=== PATIENT | male | born 1940 | race Caucasian/White ===

== ENCOUNTER 2017-07-14 09:50 | Emergency (ER) | payer MEDICARE, OTHER, SELFPAY ==
[2017-07-14] VITALS (11 sets, daily range): BP systolic 127–157; BP diastolic 64–95; PULSE 106–120; RESP 20–28; TEMP 36.3–36.7; O2SAT 92–96; BMI 31.1
--- NOTE | 2017-07-14 10:10 | ED.ALLEREA ---
HPI - Allergic Reaction General Chief complaint: Allergic Reaction Stated complaint: HIVES Time Seen by Provider: 07/14/17 10:10 Source: patient and family Mode of arrival: ambulatory Limitations: no limitations History of Present Illness HPI narrative: Patient presents with the chief complaint of worsening widespread hives and erythematous skin with swollen lips and difficulty swallowing. He was prescribed amoxicillin by his dentist on July 08 for a dental abscess and initially developed symptoms soon thereafter. He followed up at the walk-in clinic and was evaluated by their provider in placed on prednisone and Zyrtec. He has had worsening symptoms ever since and has even followed up with his primary care provider on . The rash is very itchy, but he denies pain. He's had no fever or chills. He denies cough or abdominal pain. He's had no dysuria, hematuria or urgency. MD complaint: allergic reaction, hives and facial swelling Onset (ago): day(s) Exposure: medication Known history of allergy to: Significant reaction to Augmentin years ago Symptoms: rash, facial swelling, lip swelling, difficulty swallowing and difficulty breathing Severity: severe Related Data Home Medications Medication Instructions Recorded Confirmed carvedilol [Coreg] 12.5 mg PO BID #0 03/09/11 07/14/17 atorvastatin [Lipitor] 40 mg PO HS #0 04/06/11 07/14/17 cilostazol 100 mg PO BID #0 tab 12/15/15 07/14/17 [id number] serr 1 tab PO QAM 07/14/17 07/14/17 [Glucosamine Daily Complex] multivitamin 1 tab PO DAILY 07/14/17 07/14/17 Previous Rx's Medication Instructions Recorded hydrochlorothiazide 25 mg PO QDAY #60 tab 07/03/16 clotrimazole-betamethasone 1 suly TP TID #45 gm 09/25/16 sertraline 50 mg PO QDAY #90 tab 12/03/16 metformin 1,000 mg PO BIDCC #90 tab 03/11/17 tamsulosin [Flomax] 0.4 mg PO BID #180 tab 04/10/17 prednisone 20 mg tablet 60 mg PO DAILY 5 Days #12 tab 07/12/17 triamcinolone acetonide 0.1 % 1 applictn TOP QID #453.6 gram 07/12/17 topical cream Allergies Allergy/AdvReac Type Severity Reaction Status Date / Time Penicillins Allergy Mild HIVES Verified 07/12/17 13:33 amoxicillin AdvReac Mild Hives Verified 07/12/17 13:33 Review of Systems Review of Systems All systems reviewed & are unremarkable except as noted in HPI and below Constitutional Denies chills, Denies fever(s), Denies lethargy and Denies weakness Eyes Comments: Swollen lids ENT Ears, Nose, Mouth, and Throat: Reports lip swelling and Reports mouth lesions Cardiovascular Denies chest pain, Denies irregular heart rhythm, Denies lightheadedness, Denies palpitations, Reports dyspnea and Denies orthopnea Respiratory Reports dyspnea Gastrointestinal Gastrointestinal: Denies abdominal pain, Denies change in bowel habits, Denies diarrhea, Denies nausea and Denies vomiting Genitourinary Denies hematuria, Denies flank pain, Denies urinary incontinence and Denies urinary urgency Musculoskeletal Denies back pain, Denies muscle weakness, Denies numbness and Denies tingling Integumentary/Breasts Reports rash and Reports skin swelling Comments: widespread (head to toe) erythema with hives Neurologic Denies numbness, Denies tingling and Denies weakness Endocrine Denies palpitations Allergic/Immunologic Reports lip swelling PFSH Surgical History Status post appendectomy Status post coronary artery bypass graft Family History Father Colon cancer Mother Diabetes mellitus Heart disease Hypertension High cholesterol Osteoporosis Social History Smoking Status: Former smoker Exam Narrative Exam Narrative: 77-year-old male is pleasant and in obvious distress with abnormal vital signs Const General: cooperative, acute distress and ill appearing Nutritional Appearance: obese Orientation: alert, awake and oriented x3 HENMT Head: normocephalic and atraumatic Ears: external ears normal and TM's normal bilaterally Nose: external nose normal and No nasal discharge Face and sinus: abnormal facial exam, erythema (Blanching) bilaterally, edema, no sinus tenderness and No dry mucous membranes Mouth: moist mucous membranes, mucous membranes abnormal and oral mucosa abnormal Teeth and gingiva: dentition normal Throat: tonsils normal and uvula midline MDM - Allergic Reaction MDM Narrative Medical decision making narrative: Differential Diagnosis Differential diagnosis: Likely anaphylaxis, allergic reaction and adverse reaction to drug Medical Records Attestation: I reviewed the patient's medical records. Lab Data Attestation: I reviewed the patient's lab results. Result diagrams: 07/14/17 10:15 07/14/17 10:15 Lab Results 07/14/17 07/14/17 07/14/17 Range/Units 10:15 10:15 10:15 WBC 29.0 H (4.5-11.0) X10^3/uL RBC 5.28 (4.5-5.9) X10^6/uL Hgb 18.0 H (13.5-17.5) g/dL Hct 52.5 (41-53) % MCV 99.4 (80-100) fL MCH 34.1 H (26-34) PG MCHC 34.3 (30-36) % RDW 14.2 (11.6-14.8) % Plt Count 312 (150-400) X10^3/uL Neut % (Auto) Not Reportable Lymph % (Auto) Not Reportable [place] % (Auto) Not Reportable Eos % (Auto) Not Reportable Baso % (Auto) Not Reportable Total Counted 100 Seg Neutrophils % 52.0 (38-70) % Band Neutrophils % 37.0 H (3-7) % Lymphocytes % (Manual) 5.0 L (25-45) % Eosinophils % (Manual) 6.0 H (2-4) % Neutrophils # (Manual) 01705 H (4969-3343) /uL RBC Morphology N Sodium 127 L (137-145) mmol/L Potassium 4.3 (3.4-5.1) mmol/L Chloride 93.0 L (98-107) mmol/L Carbon Dioxide 17.0 L (22-32) mmol/L BUN 28.0 H (9-20) mg/dL Creatinine 1.30 H (0.66-1.25) mg/dL Estimated GFR 53.7 L (>60) mL/min BUN/Creatinine Ratio 21.5 (6-22) Glucose 545 H* (80-110) mg/dL Lactate (0.7-2.1) mmol/L Calcium 8.7 (8.4-10.2) mg/dL Total Bilirubin 1.9 H (0.2-1.3) mg/dL AST (17-59) IU/L ALT (21-72) IU/L Procalcitonin 1.04 H (<0.5) ng/mL Urine WBC (0-5/HPF) Ur Squamous Epith Cells Amorphous Sediment Ur Culture Indicated? Micro UA Comment 07/14/17 07/14/17 07/14/17 Range/Units 10:15 10:30 15:05 WBC (4.5-11.0) X10^3/uL RBC (4.5-5.9) X10^6/uL Hgb (13.5-17.5) g/dL Hct (41-53) % MCV (80-100) fL MCH (26-34) PG MCHC (30-36) % RDW (11.6-14.8) % Plt Count (150-400) X10^3/uL Neut % (Auto) Lymph % (Auto) [place] % (Auto) Eos % (Auto) Baso % (Auto) Total Counted Seg Neutrophils % (38-70) % Band Neutrophils % (3-7) % Lymphocytes % (Manual) (25-45) % Eosinophils % (Manual) (2-4) % Neutrophils # (Manual) (0886-2488) /uL RBC Morphology Sodium (137-145) mmol/L Potassium (3.4-5.1) mmol/L Chloride (98-107) mmol/L Carbon Dioxide (22-32) mmol/L BUN (9-20) mg/dL Creatinine (0.66-1.25) mg/dL Estimated GFR (>60) mL/min BUN/Creatinine Ratio (6-22) Glucose (80-110) mg/dL Lactate 3.1 H 3.6 H (0.7-2.1) mmol/L Calcium (8.4-10.2) mg/dL Total Bilirubin (0.2-1.3) mg/dL AST 27 (17-59) IU/L ALT 64 (21-72) IU/L Procalcitonin (<0.5) ng/mL Urine WBC (0-5/HPF) Ur Squamous Epith Cells Amorphous Sediment Ur Culture Indicated? Micro UA Comment 07/14/17 Range/Units 15:50 WBC (4.5-11.0) X10^3/uL RBC (4.5-5.9) X10^6/uL Hgb (13.5-17.5) g/dL Hct (41-53) % MCV (80-100) fL MCH (26-34) PG MCHC (30-36) % RDW (11.6-14.8) % Plt Count (150-400) X10^3/uL Neut % (Auto) Lymph % (Auto) [place] % (Auto) Eos % (Auto) Baso % (Auto) Total Counted Seg Neutrophils % (38-70) % Band Neutrophils % (3-7) % Lymphocytes % (Manual) (25-45) % Eosinophils % (Manual) (2-4) % Neutrophils # (Manual) (9046-7172) /uL RBC Morphology Sodium (137-145) mmol/L Potassium (3.4-5.1) mmol/L Chloride (98-107) mmol/L Carbon Dioxide (22-32) mmol/L BUN (9-20) mg/dL Creatinine (0.66-1.25) mg/dL Estimated GFR (>60) mL/min BUN/Creatinine Ratio (6-22) Glucose (80-110) mg/dL Lactate (0.7-2.1) mmol/L Calcium (8.4-10.2) mg/dL Total Bilirubin (0.2-1.3) mg/dL AST (17-59) IU/L ALT (21-72) IU/L Procalcitonin (<0.5) ng/mL Urine WBC 1-5/hpf (0-5/HPF) Ur Squamous Epith Cells 0-1 /hpf Amorphous Sediment 1+ Ur Culture Indicated? Cult not indicated Micro UA Comment Not Reportable Imaging Data CT scan - chest: Radiologist's impression: Patient: Kris Barbour R#: [id number] : 2Acct:[id number] Age/Sex: 77 / MDate of Service: 07/14/17 Loc: ED Accession Number: [id number] Procedure: CT chest abd pel w con Ordering Provider: Edwardo Coello D.O. PROCEDURE: CT CHEST ABD PEL W CON INDICATIONS: septic appearance, unclear etiology. Tachycardia, hypoxia TECHNIQUE: After the administration of intravenous contrast, 5 mm thick sections acquired from the lung apices to the symphysis. 5 mm coronal and sagittal reformats were performed, with additional 7 mm MIP reformats through the lungs. For radiation dose reduction, the following was used: automated exposure control, adjustment of mA and/or kV according to patient size. COMPARISON: None. FINDINGS: Image quality: Excellent. CHEST: Lungs and pleura: No acute airspace opacities. No pleural effusions or pneumothorax. Central and peripheral airways appear patent and normal in caliber. Mediastinum: Heart size is normal. No pericardial effusion. No mediastinal or hilar adenopathy by size criteria. Thoracic aorta and central pulmonary arteries are normal in size. Scattered atheromatous calcifications are present within the aortic arch. Esophagus is normal in caliber. No hiatal hernia. Chest wall: Patient is status post median sternotomy. No axillary or supraclavicular adenopathy by size criteria. Thyroid gland is unremarkable. ABDOMEN: Solid organs: Liver is diffusely hypodense consistent with hepatic steatosis. Gallbladder is unremarkable. Biliary system is non dilated. Pancreas enhances normally. Spleen is normal in size and enhancement. No adrenal nodules. Kidneys demonstrate normal size and enhancement, without hydronephrosis. Peritoneum and bowel: Bowel loops demonstrate normal wall thickness and caliber. The appendix is not visualized; however there is no discrete right lower quadrant fluid or fat stranding to suggest acute appendicitis. No free fluid or air. Nodes and vessels: No retroperitoneal or mesenteric adenopathy by size criteria. Aorta and inferior vena cava are normal in size. There are scattered atheromatous calcifications throughout the aorta and iliac arteries bilaterally. Miscellaneous: No ventral hernias. PELVIS: Genitourinary: Bladder wall thickness is normal. Miscellaneous: No inguinal adenopathy. There is a small left fat-containing inguinal hernia. Bones: No suspicious bony lesions. No vertebral body compression fractures. IMPRESSION: 1. No acute pulmonary or intra-abdominal findings. 2. The appendix is not visualized; however there are no ancillary findings to suggest acute appendicitis. 3. Hepatic steatosis. Dictated by: Arti Alvarenga M.D. on 07/14/2017 at 15:05 Approved by: Arti Alvarenga M.D. on 07/14/2017 at 15:10 Course Orders Ordered: ED Orders 07/14/17 10:15 Basic Metabolic Panel Stat Bilirubin Total Stat Complete Blood Count AUTO DIFF Stat Procalcitonin Stat 07/14/17 10:30 Blood Culture Stat Lactate (Lactic Acid) Stat 07/14/17 10:34 XR chest 1V Stat 07/14/17 14:14 Alanine Aminotransferase Stat Aspartate Aminotransferase Stat 07/14/17 14:24 CT chest abd pel w con Stat 07/14/17 15:55 Urine Microscopic Stat Sodium Chloride (Normal Saline 0.9%) 1,000 mls @ 1,000 mls/hr IV BOLUS PRN PRN Reason: Fluid replacement Last Infusion: 07/14/17 14:38 Dose: 0 mls/hr Admin: 07/14/17 13:31 Dose: 1,000 mls/hr Lactated Ringer's (Lactated Ringers) 1,000 mls @ 150 mls/hr IV CONT MARY Last Admin: 07/14/17 15:04 Dose: 150 mls/hr Discontinued Medications Diphenhydramine HCl (Benadryl) 50 mg IV NOW ONE Stop: 07/14/17 10:35 Last Admin: 07/14/17 10:40 Dose: 50 mg Famotidine (Pepcid) 20 mg in 50 mls @ 200 mls/hr IV NOW ONE Stop: 07/14/17 10:48 Last Infusion: 07/14/17 11:16 Dose: 0 mls/hr Admin: 07/14/17 10:40 Dose: 200 mls/hr Sodium Chloride (Normal Saline 0.9%) 1,000 mls @ 1,000 mls/hr IV BOLUS ONE Stop: 07/14/17 13:03 Last Infusion: 07/14/17 13:26 Dose: 0 mls/hr Admin: 07/14/17 12:19 Dose: 1,000 mls/hr Insulin Human Regular (Humulin R) 10 unit SUBCUT NOW ONE Stop: 07/14/17 12:05 Last Admin: 07/14/17 12:18 Dose: 10 unit Methylprednisolone (Solu-Medrol 125 Mg Vial) 125 mg IV NOW ONE Stop: 07/14/17 10:35 Last Admin: 07/14/17 10:40 Dose: 125 mg Reevaluation(s) Reevaluation #1: [facility] has just called back, images sent to Derm/Burn. They will call back with both specialists SCORETEN: 4 (Age>40, HR >120, Bicarb < 20mmol/L, Glucose > 14mmol/L ) Time: 12:41 Reevaluation #2: I've just spoken with Dermatology at [facility] whom had already discussed case with Burn. The collective opinion is that, given lack of fever, pain, or more extensive oral mucosal involvement this is likely not SJS or on the continuum. They suggest a medical admission, but that he does not need transfer to Burn unit. More extensive imaging ordered. Call to PCP regarding local admission. 3rd L IVF started, switch to LR Time: 14:35 Reevaluation #3: Dr. Nolan is not comfortable keeping patient at this facility given complexity of presentation and significant lab abnormalities Additional Reevaluation(s): Consultations Consultation #1: call to [facility], Dr. Weber whom is happy to accept Time: 15:42 Last Vital Signs Temp 98.0 F 07/14/17 15:06 Pulse 109 H 07/14/17 16:30 Resp 20 07/14/17 16:30 BP 157/90 H 07/14/17 16:30 Pulse Ox 95 07/14/17 16:30 Critical Care Time Critical Care Time: Yes Total Critical Care Time: 45 Attestation: Critical care time is separate from other billable procedures. This critical care time includes consultation with family and other consulting doctors, review of records, and interpretation of data from labs, EKGs, imaging, etc. Discharge Plan Departure Patient Disposition: [facility] Clinical Impression: Drug-induced hypersensitivity syndrome, Acute kidney injury, Acute hyperglycemia, Lactic acid acidosis, Drug eruption Prescriptions: No Action carvedilol [Coreg] 12.5 MG tablet 12.5 mg PO BID Qty: 0 RF: 0 atorvastatin [Lipitor] 40 MG tablet 40 mg PO HS Qty: 0 RF: 0 cilostazol 100 MG tablet 100 mg PO BID Qty: 0 RF: 0 hydrochlorothiazide 12.5 MG tablet 25 mg PO QDAY Qty: 60 RF: 11 clotrimazole-betamethasone 15 GM cream 1 suly TP TID Qty: 45 RF: 3 sertraline 50 MG tablet 50 mg PO QDAY Qty: 90 RF: 3 metformin 1,000 MG tablet 1,000 mg PO BIDCC Qty: 90 RF: 1 tamsulosin [Flomax] 0.4 MG capsule,extended release 24hr 0.4 mg PO BID Qty: 180 RF: 3 prednisone 20 mg tablet 60 mg PO DAILY 5 Days Qty: 12 RF: 0 triamcinolone acetonide 0.1 % cream 1 applictn TOP QID Qty: 453.6 RF: 0 multivitamin Tablet 1 tab PO DAILY RF: 0 [id number] serr [Glucosamine Daily Complex] 1,500-400-100 mg-unit-mg Tablet 1 tab PO QAM RF: 0
--- NOTE | 2017-07-14 10:34 | DI.RAD.S_ITS ---
PROCEDURE: XR CHEST 1V INDICATIONS: SOB, tachycardia, tachypnea TECHNIQUE: One view of the chest was acquired. COMPARISON: None. FINDINGS: Surgical changes and devices: Patient is status post median sternotomy and CABG. Lungs and pleura: No pleural effusions or pneumothorax. Lungs are clear. Mediastinum: Mediastinal contours appear normal. Heart size is normal. Bones and chest wall: No suspicious bony lesions. Overlying soft tissues appear unremarkable. IMPRESSION: No acute cardiopulmonary findings. Dictated by: Arti Alvarenga M.D. on 07/14/2017 at 11:34 Approved by: Arti Alvarenga M.D. on 07/14/2017 at 11:34
[2017-07-14] MEDS: methylPREDNISolone 125 MG/2 ML VIAL IV (10:40)
[2017-07-14] MEDS: FAMOTIDINE 20 MG/50 ML PIGGYBACK 200 MG IV (10:40)
[2017-07-14] MEDS: diphenhydrAMINE 50 MG/ML VIAL IV (10:40)
[2017-07-14 10:50] LABS: Hematocrit 52.5 % (41-53); Mean Corpuscular HGB Conc 34.3 % (30-36); Mean Corpuscular Hemoglobin 34.1 PG (26-34); Mean Corpuscular Volume 99.4 fL (80-100); Platelet Count 312 X10^3/uL (150-400); Red Blood Cell Count 5.28 X10^6/uL (4.5-5.9); Red Cell Distribution Width 14.2 % (11.6-14.8)
[2017-07-14 10:52] LABS: Add Manual Diff / Slide Review YES
[2017-07-14 10:53] LABS: BUN Creatinine Ratio 21.5 (6-22); Bilirubin Total 1.9 mg/dL (0.2-1.3); Calcium 8.7 mg/dL (8.4-10.2); Estimated Glomerular Filt Rate 53.7 mL/min (>60); HEMOLYSIS 16 (0-50); Potassium 4.3 mmol/L (3.4-5.1); Sodium 127 mmol/L (137-145)
[2017-07-14 10:56] LABS: Lactate (Lactic Acid) 3.1 mmol/L (0.7-2.1)
[2017-07-14 11:00] LABS: Glucose 545 mg/dL (80-110)
[2017-07-14 11:14] LABS: Neutrophils Absolute Manual 25810 /uL (3000-5900); Total Cells Counted 100
[2017-07-14 11:15] LABS: RBC Morphology N
[2017-07-14 11:29] LABS: Procalcitonin 1.04 ng/mL (<0.5)
[2017-07-14] MEDS: INSULIN REGULAR 100 UNIT/ML 3 ML VIAL 10 UNIT SUBCUT (12:18)
[2017-07-14] MEDS: SODIUM CHLORIDE 0.9% 1,000 ML 1000 ML IV ×2 (12:19→13:31)
--- NOTE | 2017-07-14 14:24 | DI.CT.S_ITS ---
PROCEDURE: CT CHEST ABD PEL W CON INDICATIONS: septic appearance, unclear etiology. Tachycardia, hypoxia TECHNIQUE: After the administration of intravenous contrast, 5 mm thick sections acquired from the lung apices to the symphysis. 5 mm coronal and sagittal reformats were performed, with additional 7 mm MIP reformats through the lungs. For radiation dose reduction, the following was used: automated exposure control, adjustment of mA and/or kV according to patient size. COMPARISON: None. FINDINGS: Image quality: Excellent. CHEST: Lungs and pleura: No acute airspace opacities. No pleural effusions or pneumothorax. Central and peripheral airways appear patent and normal in caliber. Mediastinum: Heart size is normal. No pericardial effusion. No mediastinal or hilar adenopathy by size criteria. Thoracic aorta and central pulmonary arteries are normal in size. Scattered atheromatous calcifications are present within the aortic arch. Esophagus is normal in caliber. No hiatal hernia. Chest wall: Patient is status post median sternotomy. No axillary or supraclavicular adenopathy by size criteria. Thyroid gland is unremarkable. ABDOMEN: Solid organs: Liver is diffusely hypodense consistent with hepatic steatosis. Gallbladder is unremarkable. Biliary system is non dilated. Pancreas enhances normally. Spleen is normal in size and enhancement. No adrenal nodules. Kidneys demonstrate normal size and enhancement, without hydronephrosis. Peritoneum and bowel: Bowel loops demonstrate normal wall thickness and caliber. The appendix is not visualized; however there is no discrete right lower quadrant fluid or fat stranding to suggest acute appendicitis. No free fluid or air. Nodes and vessels: No retroperitoneal or mesenteric adenopathy by size criteria. Aorta and inferior vena cava are normal in size. There are scattered atheromatous calcifications throughout the aorta and iliac arteries bilaterally. Miscellaneous: No ventral hernias. PELVIS: Genitourinary: Bladder wall thickness is normal. Miscellaneous: No inguinal adenopathy. There is a small left fat-containing inguinal hernia. Bones: No suspicious bony lesions. No vertebral body compression fractures. IMPRESSION: 1. No acute pulmonary or intra-abdominal findings. 2. The appendix is not visualized; however there are no ancillary findings to suggest acute appendicitis. 3. Hepatic steatosis. Dictated by: Arti Alvarenga M.D. on 07/14/2017 at 15:05 Approved by: Arti Alvarenga M.D. on 07/14/2017 at 15:10
--- NOTE | 2017-07-14 14:35 | ED_ITS ---
HPI - Allergic Reaction General Chief complaint: Allergic Reaction Stated complaint: HIVES Time Seen by Provider: 07/14/17 10:10 Source: patient and family Mode of arrival: ambulatory Limitations: no limitations History of Present Illness HPI narrative: Patient presents with the chief complaint of worsening widespread hives and erythematous skin with swollen lips and difficulty swallowing. He was prescribed amoxicillin by his dentist on July 08 for a dental abscess and initially developed symptoms soon thereafter. He followed up at the walk-in clinic and was evaluated by their provider in placed on prednisone and Zyrtec. He has had worsening symptoms ever since and has even followed up with his primary care provider on . The rash is very itchy, but he denies pain. He's had no fever or chills. He denies cough or abdominal pain. He's had no dysuria, hematuria or urgency. MD complaint: allergic reaction, hives and facial swelling Onset (ago): day(s) Exposure: medication Known history of allergy to: Significant reaction to Augmentin years ago Symptoms: rash, facial swelling, lip swelling, difficulty swallowing and difficulty breathing Severity: severe Related Data Home Medications Medication Instructions Recorded Confirmed carvedilol [Coreg] 12.5 mg PO BID #0 03/09/11 07/14/17 atorvastatin [Lipitor] 40 mg PO HS #0 04/06/11 07/14/17 cilostazol 100 mg PO BID #0 tab 12/15/15 07/14/17 [id number] serr 1 tab PO QAM 07/14/17 07/14/17 [Glucosamine Daily Complex] multivitamin 1 tab PO DAILY 07/14/17 07/14/17 Previous Rx's Medication Instructions Recorded hydrochlorothiazide 25 mg PO QDAY #60 tab 07/03/16 clotrimazole-betamethasone 1 suly TP TID #45 gm 09/25/16 sertraline 50 mg PO QDAY #90 tab 12/03/16 metformin 1,000 mg PO BIDCC #90 tab 03/11/17 tamsulosin [Flomax] 0.4 mg PO BID #180 tab 04/10/17 prednisone 20 mg tablet 60 mg PO DAILY 5 Days #12 tab 07/12/17 triamcinolone acetonide 0.1 % 1 applictn TOP QID #453.6 gram 07/12/17 topical cream Allergies Allergy/AdvReac Type Severity Reaction Status Date / Time Penicillins Allergy Mild HIVES Verified 07/12/17 13:33 amoxicillin AdvReac Mild Hives Verified 07/12/17 13:33 Review of Systems Review of Systems All systems reviewed & are unremarkable except as noted in HPI and below Constitutional Denies chills, Denies fever(s), Denies lethargy and Denies weakness Eyes Comments: Swollen lids ENT Ears, Nose, Mouth, and Throat: Reports lip swelling and Reports mouth lesions Cardiovascular Denies chest pain, Denies irregular heart rhythm, Denies lightheadedness, Denies palpitations, Reports dyspnea and Denies orthopnea Respiratory Reports dyspnea Gastrointestinal Gastrointestinal: Denies abdominal pain, Denies change in bowel habits, Denies diarrhea, Denies nausea and Denies vomiting Genitourinary Denies hematuria, Denies flank pain, Denies urinary incontinence and Denies urinary urgency Musculoskeletal Denies back pain, Denies muscle weakness, Denies numbness and Denies tingling Integumentary/Breasts Reports rash and Reports skin swelling Comments: widespread (head to toe) erythema with hives Neurologic Denies numbness, Denies tingling and Denies weakness Endocrine Denies palpitations Allergic/Immunologic Reports lip swelling PFSH Surgical History Status post appendectomy Status post coronary artery bypass graft Family History Father Colon cancer Mother Diabetes mellitus Heart disease Hypertension High cholesterol Osteoporosis Social History Smoking Status: Former smoker Exam Narrative Exam Narrative: 77-year-old male is pleasant and in obvious distress with abnormal vital signs Const General: cooperative, acute distress and ill appearing Nutritional Appearance: obese Orientation: alert, awake and oriented x3 HENMT Head: normocephalic and atraumatic Ears: external ears normal and TM's normal bilaterally Nose: external nose normal and No nasal discharge Face and sinus: abnormal facial exam, erythema (Blanching) bilaterally, edema, no sinus tenderness and No dry mucous membranes Mouth: moist mucous membranes, mucous membranes abnormal and oral mucosa abnormal Teeth and gingiva: dentition normal Throat: tonsils normal and uvula midline MDM - Allergic Reaction MDM Narrative Medical decision making narrative: Differential Diagnosis Differential diagnosis: Likely anaphylaxis, allergic reaction and adverse reaction to drug Medical Records Attestation: I reviewed the patient's medical records. Lab Data Attestation: I reviewed the patient's lab results. Result diagrams: 07/14/17 10:15 07/14/17 10:15 Lab Results 07/14/17 07/14/17 07/14/17 Range/Units 10:15 10:15 10:15 WBC 29.0 H (4.5-11.0) X10^3/uL RBC 5.28 (4.5-5.9) X10^6/uL Hgb 18.0 H (13.5-17.5) g/dL Hct 52.5 (41-53) % MCV 99.4 (80-100) fL MCH 34.1 H (26-34) PG MCHC 34.3 (30-36) % RDW 14.2 (11.6-14.8) % Plt Count 312 (150-400) X10^3/uL Neut % (Auto) Not Reportable Lymph % (Auto) Not Reportable [place] % (Auto) Not Reportable Eos % (Auto) Not Reportable Baso % (Auto) Not Reportable Total Counted 100 Seg Neutrophils % 52.0 (38-70) % Band Neutrophils % 37.0 H (3-7) % Lymphocytes % (Manual) 5.0 L (25-45) % Eosinophils % (Manual) 6.0 H (2-4) % Neutrophils # (Manual) 88129 H (6041-1305) /uL RBC Morphology N Sodium 127 L (137-145) mmol/L Potassium 4.3 (3.4-5.1) mmol/L Chloride 93.0 L (98-107) mmol/L Carbon Dioxide 17.0 L (22-32) mmol/L BUN 28.0 H (9-20) mg/dL Creatinine 1.30 H (0.66-1.25) mg/dL Estimated GFR 53.7 L (>60) mL/min BUN/Creatinine Ratio 21.5 (6-22) Glucose 545 H* (80-110) mg/dL Lactate (0.7-2.1) mmol/L Calcium 8.7 (8.4-10.2) mg/dL Total Bilirubin 1.9 H (0.2-1.3) mg/dL AST (17-59) IU/L ALT (21-72) IU/L Procalcitonin 1.04 H (<0.5) ng/mL Urine WBC (0-5/HPF) Ur Squamous Epith Cells Amorphous Sediment Ur Culture Indicated? Micro UA Comment 07/14/17 07/14/17 07/14/17 Range/Units 10:15 10:30 15:05 WBC (4.5-11.0) X10^3/uL RBC (4.5-5.9) X10^6/uL Hgb (13.5-17.5) g/dL Hct (41-53) % MCV (80-100) fL MCH (26-34) PG MCHC (30-36) % RDW (11.6-14.8) % Plt Count (150-400) X10^3/uL Neut % (Auto) Lymph % (Auto) [place] % (Auto) Eos % (Auto) Baso % (Auto) Total Counted Seg Neutrophils % (38-70) % Band Neutrophils % (3-7) % Lymphocytes % (Manual) (25-45) % Eosinophils % (Manual) (2-4) % Neutrophils # (Manual) (3050-8761) /uL RBC Morphology Sodium (137-145) mmol/L Potassium (3.4-5.1) mmol/L Chloride (98-107) mmol/L Carbon Dioxide (22-32) mmol/L BUN (9-20) mg/dL Creatinine (0.66-1.25) mg/dL Estimated GFR (>60) mL/min BUN/Creatinine Ratio (6-22) Glucose (80-110) mg/dL Lactate 3.1 H 3.6 H (0.7-2.1) mmol/L Calcium (8.4-10.2) mg/dL Total Bilirubin (0.2-1.3) mg/dL AST 27 (17-59) IU/L ALT 64 (21-72) IU/L Procalcitonin (<0.5) ng/mL Urine WBC (0-5/HPF) Ur Squamous Epith Cells Amorphous Sediment Ur Culture Indicated? Micro UA Comment 07/14/17 Range/Units 15:50 WBC (4.5-11.0) X10^3/uL RBC (4.5-5.9) X10^6/uL Hgb (13.5-17.5) g/dL Hct (41-53) % MCV (80-100) fL MCH (26-34) PG MCHC (30-36) % RDW (11.6-14.8) % Plt Count (150-400) X10^3/uL Neut % (Auto) Lymph % (Auto) [place] % (Auto) Eos % (Auto) Baso % (Auto) Total Counted Seg Neutrophils % (38-70) % Band Neutrophils % (3-7) % Lymphocytes % (Manual) (25-45) % Eosinophils % (Manual) (2-4) % Neutrophils # (Manual) (4177-1362) /uL RBC Morphology Sodium (137-145) mmol/L Potassium (3.4-5.1) mmol/L Chloride (98-107) mmol/L Carbon Dioxide (22-32) mmol/L BUN (9-20) mg/dL Creatinine (0.66-1.25) mg/dL Estimated GFR (>60) mL/min BUN/Creatinine Ratio (6-22) Glucose (80-110) mg/dL Lactate (0.7-2.1) mmol/L Calcium (8.4-10.2) mg/dL Total Bilirubin (0.2-1.3) mg/dL AST (17-59) IU/L ALT (21-72) IU/L Procalcitonin (<0.5) ng/mL Urine WBC 1-5/hpf (0-5/HPF) Ur Squamous Epith Cells 0-1 /hpf Amorphous Sediment 1+ Ur Culture Indicated? Cult not indicated Micro UA Comment Not Reportable Imaging Data CT scan - chest: Radiologist's impression: Patient: Kris Barbour R#: [id number] : 2Acct:[id number] Age/Sex: 77 / MDate of Service: 07/14/17 Loc: ED Accession Number: [id number] Procedure: CT chest abd pel w con Ordering Provider: Edwardo Coello D.O. PROCEDURE: CT CHEST ABD PEL W CON INDICATIONS: septic appearance, unclear etiology. Tachycardia, hypoxia TECHNIQUE: After the administration of intravenous contrast, 5 mm thick sections acquired from the lung apices to the symphysis. 5 mm coronal and sagittal reformats were performed, with additional 7 mm MIP reformats through the lungs. For radiation dose reduction, the following was used: automated exposure control, adjustment of mA and/or kV according to patient size. COMPARISON: None. FINDINGS: Image quality: Excellent. CHEST: Lungs and pleura: No acute airspace opacities. No pleural effusions or pneumothorax. Central and peripheral airways appear patent and normal in caliber. Mediastinum: Heart size is normal. No pericardial effusion. No mediastinal or hilar adenopathy by size criteria. Thoracic aorta and central pulmonary arteries are normal in size. Scattered atheromatous calcifications are present within the aortic arch. Esophagus is normal in caliber. No hiatal hernia. Chest wall: Patient is status post median sternotomy. No axillary or supraclavicular adenopathy by size criteria. Thyroid gland is unremarkable. ABDOMEN: Solid organs: Liver is diffusely hypodense consistent with hepatic steatosis. Gallbladder is unremarkable. Biliary system is non dilated. Pancreas enhances normally. Spleen is normal in size and enhancement. No adrenal nodules. Kidneys demonstrate normal size and enhancement, without hydronephrosis. Peritoneum and bowel: Bowel loops demonstrate normal wall thickness and caliber. The appendix is not visualized; however there is no discrete right lower quadrant fluid or fat stranding to suggest acute appendicitis. No free fluid or air. Nodes and vessels: No retroperitoneal or mesenteric adenopathy by size criteria. Aorta and inferior vena cava are normal in size. There are scattered atheromatous calcifications throughout the aorta and iliac arteries bilaterally. Miscellaneous: No ventral hernias. PELVIS: Genitourinary: Bladder wall thickness is normal. Miscellaneous: No inguinal adenopathy. There is a small left fat-containing inguinal hernia. Bones: No suspicious bony lesions. No vertebral body compression fractures. IMPRESSION: 1. No acute pulmonary or intra-abdominal findings. 2. The appendix is not visualized; however there are no ancillary findings to suggest acute appendicitis. 3. Hepatic steatosis. Dictated by: Arti Alvarenga M.D. on 07/14/2017 at 15:05 Approved by: Arti Alvarenga M.D. on 07/14/2017 at 15:10 Course Orders Ordered: ED Orders 07/14/17 10:15 Basic Metabolic Panel Stat Bilirubin Total Stat Complete Blood Count AUTO DIFF Stat Procalcitonin Stat 07/14/17 10:30 Blood Culture Stat Lactate (Lactic Acid) Stat 07/14/17 10:34 XR chest 1V Stat 07/14/17 14:14 Alanine Aminotransferase Stat Aspartate Aminotransferase Stat 07/14/17 14:24 CT chest abd pel w con Stat 07/14/17 15:55 Urine Microscopic Stat Sodium Chloride (Normal Saline 0.9%) 1,000 mls @ 1,000 mls/hr IV BOLUS PRN PRN Reason: Fluid replacement Last Infusion: 07/14/17 14:38 Dose: 0 mls/hr Admin: 07/14/17 13:31 Dose: 1,000 mls/hr Lactated Ringer's (Lactated Ringers) 1,000 mls @ 150 mls/hr IV CONT MARY Last Admin: 07/14/17 15:04 Dose: 150 mls/hr Discontinued Medications Diphenhydramine HCl (Benadryl) 50 mg IV NOW ONE Stop: 07/14/17 10:35 Last Admin: 07/14/17 10:40 Dose: 50 mg Famotidine (Pepcid) 20 mg in 50 mls @ 200 mls/hr IV NOW ONE Stop: 07/14/17 10:48 Last Infusion: 07/14/17 11:16 Dose: 0 mls/hr Admin: 07/14/17 10:40 Dose: 200 mls/hr Sodium Chloride (Normal Saline 0.9%) 1,000 mls @ 1,000 mls/hr IV BOLUS ONE Stop: 07/14/17 13:03 Last Infusion: 07/14/17 13:26 Dose: 0 mls/hr Admin: 07/14/17 12:19 Dose: 1,000 mls/hr Insulin Human Regular (Humulin R) 10 unit SUBCUT NOW ONE Stop: 07/14/17 12:05 Last Admin: 07/14/17 12:18 Dose: 10 unit Methylprednisolone (Solu-Medrol 125 Mg Vial) 125 mg IV NOW ONE Stop: 07/14/17 10:35 Last Admin: 07/14/17 10:40 Dose: 125 mg Reevaluation(s) Reevaluation #1: [facility] [place] [facility] has just called back, images sent to Derm/ Burn. They will call back with both specialists SCORETEN: 4 (Age>40, HR >120, Bicarb < 20mmol/L, Glucose > 14mmol/L ) Time: 12:41 Reevaluation #2: I've just spoken with Dermatology at [facility] [place] [facility] whom had already discussed case with Burn. The collective opinion is that, given lack of fever, pain, or more extensive oral mucosal involvement this is likely not SJS or on the continuum. They suggest a medical admission, but that he does not need transfer to Burn unit. More extensive imaging ordered. Call to PCP regarding local admission. 3rd L IVF started, switch to LR Time: 14:35 Reevaluation #3: Dr. Nolan is not comfortable keeping patient at this facility given complexity of presentation and significant lab abnormalities Additional Reevaluation(s): Consultations Consultation #1: call to [facility]ist, Dr. Weber whom is happy to accept Time: 15:42 Last Vital Signs Temp 98.0 F 07/14/17 15:06 Pulse 109 H 07/14/17 16:30 Resp 20 07/14/17 16:30 BP 157/90 H 07/14/17 16:30 Pulse Ox 95 07/14/17 16:30 Critical Care Time Critical Care Time: Yes Total Critical Care Time: 45 Attestation: Critical care time is separate from other billable procedures. This critical care time includes consultation with family and other consulting doctors, review of records, and interpretation of data from labs, EKGs, imaging, etc. Discharge Plan Departure Patient Disposition: [facility] Clinical Impression: Drug-induced hypersensitivity syndrome, Acute kidney injury, Acute hyperglycemia, Lactic acid acidosis, Drug eruption Prescriptions: No Action carvedilol [Coreg] 12.5 MG tablet 12.5 mg PO BID Qty: 0 RF: 0 atorvastatin [Lipitor] 40 MG tablet 40 mg PO HS Qty: 0 RF: 0 cilostazol 100 MG tablet 100 mg PO BID Qty: 0 RF: 0 hydrochlorothiazide 12.5 MG tablet 25 mg PO QDAY Qty: 60 RF: 11 clotrimazole-betamethasone 15 GM cream 1 suly TP TID Qty: 45 RF: 3 sertraline 50 MG tablet 50 mg PO QDAY Qty: 90 RF: 3 metformin 1,000 MG tablet 1,000 mg PO BIDCC Qty: 90 RF: 1 tamsulosin [Flomax] 0.4 MG capsule,extended release 24hr 0.4 mg PO BID Qty: 180 RF: 3 prednisone 20 mg tablet 60 mg PO DAILY 5 Days Qty: 12 RF: 0 triamcinolone acetonide 0.1 % cream 1 applictn TOP QID Qty: 453.6 RF: 0 multivitamin Tablet 1 tab PO DAILY RF: 0 [id number] serr [Glucosamine Daily Complex] 1,500-400-100 mg- unit-mg Tablet 1 tab PO QAM RF: 0
[2017-07-14 14:39] LABS: Alanine Aminotransferase 64 IU/L (21-72); Aspartate Aminotransferase 27 IU/L (17-59)
[2017-07-14 14:44] LABS: Reflexed Lactate in 2 Hours Y
[2017-07-14] MEDS: LACTATED RINGERS 1,000 ML 150 ML IV (15:04)
[2017-07-14 15:21] LABS: Lactate 2HR (Lactic Acid Rflx) 3.6 mmol/L (0.7-2.1)
--- NOTE | 2017-07-14 15:36 | PC.NURSE ---
facial swelling, right eye swelling and neck swelling slightly improved. face is not as beefy red. soft palate with swelling unchanged.
[2017-07-14 16:14] LABS: Amorphous Sediment Urine 1+; Squamous Epithelial Cell Urine 0-1 /HPF; WBC Urine 1-5/HPF (0-5/HPF)
[2017-07-14 16:15] LABS: Culture Indicated Urine Cult Not Indicated
== END 2017-07-14 17:26 | disposition short-term general hospital (02) ==
PROVIDERS: Emergency Provider Emergency Medicine; Family Provider Internal Medicine; PCP Internal Medicine
DX: T78.40XA Allergy, unspecified, initial encounter (principal); T50.905A Adverse effect of unspecified drugs, medicaments and biological substances, initial encounter; N17.9 Acute kidney failure, unspecified; R73.9 Hyperglycemia, unspecified; E87.2 Acidosis; L27.0 Generalized skin eruption due to drugs and medicaments taken internally
CPT/HCPCS: 36415; 36591; 71045; 71260; 74177; 80048; 81003; 81015; 82247; 82962; 83605; 84145; 84450; 84460; 85025; 87040; 96372; 96374; 96375; 99285; 99291; J1200; J2930; Q9967

== ENCOUNTER → 2017-07-22 16:44 | Outpatient (CLI) | payer MEDICARE, OTHER, SELFPAY ==
[2017-07-22 17:39] LABS: Add Manual Diff / Slide Review NO; Basophils Percent Auto 0.9 % (0-2); Eosinophils Percent Auto 8.6 % (2-4); Hematocrit 50.3 % (41-53); Hemoglobin 17.6 g/dL (13.5-17.5); Lymphocytes Percent Auto 21.3 % (25-40); Mean Corpuscular HGB Conc 34.9 % (30-36); Mean Corpuscular Hemoglobin 33.7 PG (26-34); Mean Corpuscular Volume 96.5 fL (80-100); Monocytes Percent Auto 4.9 % (3-14); Neutrophils Absolute Auto 9200 /uL (3000-5900); Neutrophils Percent Auto 64.3 % (50-75); Platelet Count 288 X10^3/uL (150-400); Red Blood Cell Count 5.22 X10^6/uL (4.5-5.9); Red Cell Distribution Width 13.9 % (11.6-14.8); White Blood Cell Count 14.3 X10^3/uL (4.5-11.0)
[2017-07-22 19:09] LABS: Alanine Aminotransferase 63 IU/L (21-72); Albumin 4.4 g/dL (3.5-5.0); Albumin Globulin Ratio 1.5 (1.0-2.8); Alkaline Phosphatase 166 U/L (38-126); Aspartate Aminotransferase 26 IU/L (17-59); BUN Creatinine Ratio 24.5 (6-22); Bilirubin Total 1.5 mg/dL (0.2-1.3); Estimated Glomerular Filt Rate > 60.0 mL/min (>60); Globulin 2.9 g/dL (1.7-4.1); Glucose 409 mg/dL (80-110); HEMOLYSIS < 15 (0-50); Potassium 3.9 mmol/L (3.4-5.1); Sodium 132 mmol/L (137-145); Total Protein 7.3 g/dL (6.3-8.2)
== END ==
PROVIDERS: Family Provider Internal Medicine; PCP Internal Medicine; Visit Provider Internal Medicine
DX: T78.40XA Allergy, unspecified, initial encounter (principal); T50.905A Adverse effect of unspecified drugs, medicaments and biological substances, initial encounter
CPT/HCPCS: 36415; 80053; 85025

== ENCOUNTER → 2017-07-25 16:21 | Outpatient (CLI) | payer MEDICARE, OTHER, SELFPAY ==
[2017-07-25 16:35] LABS: Bacteria Urine None Seen; RBC Urine None Seen (0-5/HPF); WBC Urine None Seen (0-5/HPF)
[2017-07-25 17:30] LABS: Appearance Urine UA CLEAR; Bilirubin Urine UA NEGATIVE (NEGATIVE); Color Urine UA YELLOW; Glucose Urine UA 2+ g/dL (Negative); Ketones Urine UA NEGATIVE (NEGATIVE); Leukocyte Esterase Urine UA NEGATIVE (NEGATIVE); Nitrite Urine UA Negative (Negative); Occult Blood Urine UA TRACE-LYSED (Negative); Protein Urine UA TRACE (Negative); Urobilinogen Urine UA 0.2 E.U./dL (0.2)
[2017-07-25 17:34] LABS: Uric Acid Crystals Urine Occasional
[2017-07-25 17:35] LABS: Culture Indicated Urine Cult Not Indicated
== END ==
PROVIDERS: PCP Internal Medicine; Visit Provider Urology
DX: N39.41 Urge incontinence (principal); R35.0 Frequency of micturition
CPT/HCPCS: 81001

== ENCOUNTER 2017-09-11 07:49 | Day surgery (SDC) | payer MEDICARE, OTHER, SELFPAY ==
--- NOTE | 2017-09-06 17:11 | PM.PREOP ---
Pre-operative Note Interval Note Pre-op Check: History & Physical Reviewed by Physician
[2017-09-11] MEDS: PROPARACAINE 0.5% OPHTH SOL 2 DROPS EYE-LEFT (08:20)
[2017-09-11 08:25] VITALS: BMI 30.4
[2017-09-11] MEDS: CYCLOPENTOLATE 1% OPHTH 2.5 DROPS, PHENYLEPHRINE 2.5% OPHTH 2.5 DROPS, TROPICAMIDE 1% O... EYE-OP (08:30)
[2017-09-11 08:34] VITALS: BP 124/67; PULSE 68; RESP 16; TEMP 36.6; O2SAT 93
--- NOTE | 2017-09-11 08:58 | PM.PREOP ---
Pre-operative Note Interval Note Pre-op Check: History & Physical Reviewed by Physician
--- NOTE | 2017-09-11 09:07 | SUR.PREOP ---
Reports taking no meds today.
[2017-09-11] MEDS: BALANCED SALT IRRIG SOLN NO.2 15 ML IRRIG.SOLN IRR (09:27)
[2017-09-11] MEDS: LIDOCAINE 1% W/EPI INJ 20 ML INJ (09:28)
[2017-09-11] MEDS: HYALURONATE SODIUM 10 MG/ML SYRINGE INJ (09:28)
[2017-09-11] MEDS: CARBACHOL 1.5 ML VIAL INJ (09:28)
[2017-09-11] MEDS: CHONDROIDTIN/SOD HYALURONATE 1.05 ML SYRINGE INTRAOCULA (09:28)
[2017-09-11] MEDS: MOXIFLOXACIN OPHTH DROPS 3 ML BOTTLE 2 DROPS INJ (09:29)
[2017-09-11] MEDS: NEOMYCIN/POLY/DEX OPHTH OINT 1 APPLIC EYE-LEFT (09:29)
[2017-09-11] MEDS: PHENYLEPHRINE/LIDOCAINE 3ML VIAL (OR) EYE-OP (09:30)
[2017-09-11] MEDS: OFLOXACIN 0.3% OPHTH 5 ML 2 DROPS EYE-LEFT (09:30)
[2017-09-11] MEDS: TRYPAN BLUE 0.5 ML SYRINGE INJ (09:31)
[2017-09-11] MEDS: TRIAMCINOLONE 50 MG/5 ML VIAL INJ (09:31)
[2017-09-11] MEDS: BALANCED SALT IRRIG SOLN NO.2 500 ML, EPINEPHrine 1 MG IRR (09:31)
[2017-09-11] MEDS: LIDOCAINE 2% 4 ML, BUPIVACAINE 0.5% (PF) 4 ML, HYALURONIDASE 150 UNIT INJ (09:32)
[2017-09-11 10:13] VITALS: BP 129/76; PULSE 68; RESP 16; TEMP 36.2; O2SAT 96
--- NOTE | 2017-09-11 20:18 | PM.PROC.1 ---
Procedures Date/Time Date of procedure: 09/11/17 Time of procedure: 09:18 General Procedure description: Date of service: September 12, 2007 Preoperative diagnoses: 1. Advanced immature nuclear sclerotic cataract with need for capsular dye. 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 3. Recent severe reaction to penicillin including including toxic dermatolysis, now stable. 4.Diabetes Postoperative diagnoses: 1. Cataract removal by phacoemulsification with use of capsular dye and Malyugin ring. Posterior chamber intraocular lens implant. Procedure: Phacoemulsification with posterior chamber intraocular lens implant Surgeon: Tamia Rodrigues MD Complications: None Specimen: None Implant: ZCBOO +19.5 Blood loss: None Anesthesia: Retrobulbar with monitored standby Anesthesiologist: Harper Horvath M.D. Description of procedure: Patient is a 77 year old male with decreased vision due to cataract which is affecting activities of daily living. He wants surgery to improve vision. Pre-operative glucose 184. He has taken to the operating room and given IV sedation. A retrobulbar block insert consisting of 6 cc of 2% xylocaine without epinephrine mixed half and half with 0.5% Marcaine with 1 cc of hyaluronidase added is placed between the medial and lateral 1/3 of the inferior orbital rim. Lid akinesia is obtain with 1% xylocaine with epinephrine infiltrated along the lid margin. The eye is manually massaged for 30 sec, prepped using Betadine solution, and draped in the usual sterile fashion. Temporal approach was made, a 1 mm side-port incision was made at the 12 oclock meridian. Phenylephrine 1.5% mixed with 1% xylocaine 0.2 cc was placed into the anterior chamber. An air bubble is placed followed by Visudyne dye.Viscoat followed by Healon was then placed. A 2.6 mm clear incision with a 2.6 mm blade was placed at the 3 oclock meridian. A Malyguin ring of 7.0 millimeters was inspected and placed in the anterior chamber. The iris was sequentially hooked forming an adequate pupil. A 360 degree capsulorrhexis style capsulotomy was then performed with a cystitome needle on a Healon. Hydrodelineation and hydrodissection were performed. The phacoemulsification unit is introduced, and sculpting notice used to groove the central lens. The cataract was advanced to mature.It is then removed in chopping mode. Epi nucleus is removed with epinuclear mode and irrigation aspiration was used to remove the peripheral cortex. The posterior capsule is polished. The intraocular lens is selected, inspected, power confirmed, and placed in the posterior chamber. The Malyguin ring was disenserted and removed from the iris and then the eye in the unfolder device. The pupil was constricted. The wound was stromally hydrated and tested for leaks, there was none and was left sutureless. Vigamox 0.1 cc was placed into the anterior chamber. Kenalog 0.2 cc was placed in the superior subconjunctival space. A drop of antibiotic and was placed and the eye was patched and shielded. The patient was stable and returned to the recovery room in excellent condition. Dictated by: Tamia Rodrigues MD Copy to: [facility] September 12, 1999 Male left cataract surgery
== END 2017-09-11 10:15 | disposition home or self-care (01) ==
LOC: OR 07:51
PROVIDERS: PCP Internal Medicine; Visit Provider Ophthalmology
PROC: (CPT 66982; principal; 2017-09-11 08:45)
DX: H25.12 Age-related nuclear cataract, left eye (principal); E11.9 Type 2 diabetes mellitus without complications; I10 Essential (primary) hypertension; K75.9 Inflammatory liver disease, unspecified; I51.9 Heart disease, unspecified
CPT/HCPCS: 66982; J0171; J2250; J2704; J3010; J3301; J3470

== ENCOUNTER 2017-09-25 07:55 | Day surgery (SDC) | payer MEDICARE, OTHER, SELFPAY ==
--- NOTE | 2017-09-25 07:43 | PM.PREOP ---
Pre-operative Note Interval Note Pre-op Check: Yes History & Physical Reviewed by Physician Changes: No
[2017-09-25] MEDS: PROPARACAINE 0.5% OPHTH SOL 2 DROPS EYE-OP (08:15)
[2017-09-25 08:16] VITALS: BP 157/77; PULSE 74; RESP 16; TEMP 36.2; O2SAT 96
[2017-09-25] MEDS: CATARACT EYE COMPOUND (10 DROPS/SYRINGE) 3 DROPS EYE-OP (08:21)
[2017-09-25] MEDS: INSULIN REGULAR 100 UNIT/ML 3 ML VIAL SUBCUT (08:33)
--- NOTE | 2017-09-25 08:55 | PM.OP.1 ---
Procedure & Clinicians Procedure: Date of service: September 26, 2007 Preoperative diagnoses: 1. Right mature nuclear sclerotic cataract Cataract. Needs complex cataract surgery with malunion ring and capsular dye. 2. Astigmatism which he elects to correct with a toric intra-ocular lens implant 3. Floppy Iris syndrome. 4. diabetes with elevated Fasting Glucose. Postoperative diagnoses: 1. Cataract removed with use of phacoemulsification Visiondye, Malyguin ring toric and intra-ocular lens implant. Procedure: Phacoemulsification with posterior chamber intraocular lens implant Surgeon: Tamia Rodrigues MD Complications:None, Specimen: None Implant:ZCT+150+19.5, [place] 56 Blood loss: None Anesthesia: Retrobulbar with monitored standby Anesthesiologist: Bryant Romero M.D. Description of procedure: Patient is a male year old with decreased vision due to advanced to mature cataract which is affecting activities of daily living. He wants surgery to improve vision. His preoperative fasting blood glucose was 220. He said this was habitual but was given 4 units of regular insulin prior to surgery. He is usually only on oral agents He has taken to the operating room and given IV sedation. Proparacaine drops were placed in indelible ink [place] were placed at the 90 and 180 degree meridian. A retrobulbar block insert consisting of 6 cc of 2% xylocaine without epinephrine mixed half and half with 0.5% Marcaine with 1 cc of hyaluronidase added is placed between the medial and lateral 1/3 of the inferior orbital rim. Lid akinesia is obtain with 1% xylocaine with epinephrine infiltrated along the lid margin. The eye is manually massaged for 30 sec, prepped using Betadine solution, and draped in the usual sterile fashion. Temporal approach was made, a 1 mm side-port incision was made at the 7:30 position. Phenylephrine 1.5% mixed with 1% xylocaine 0.2 cc was placed into the anterior chamber. An air bubble was placed and Visudyne was placed in the eye, Viscoat followed by Healon was then placed. A 2.6 mm clear incision with a 2.6 mm blade was placed at the 170 degree meridian. A Malyguin ring of 7 mm was inspected, placed into the anterior chamber and then hooked in each quadrant of the iris to prevent flopping of the iris. A 360 degree capsulorrhexis style capsulotomy was then performed with a cystitome needle on a LIKECHARITYon. Hydrodelineation and hydrodissection were performed. The phacoemulsification unit is introduced, and sculpting notice used to groove the central lens. It is then removed in chopping mode. Epi nucleus is removed with epinuclear mode and irrigation aspiration was used to remove the peripheral cortex. The posterior capsule is polished. The intraocular lens is selected, inspected, power confirmed, and placed in the posterior chamber at the 56 degree meridian. It was noted there was a slight vitreous strand near the at 9:30 without a capsular tear. It may have come around a loose zonule. No zonular stability was noted and the intra-ocular lens implant was well centered at the desired position. A Weck-Mayuri vitrectomy was done. Miostat was placed in the eye. The pupil was round and no vitreous was present. No mechanical vitrectomy was needed.The pupil was constricted. The wound was stromally hydrated and tested for leaks, there was none and was left sutureless. Vigamox 0.1 cc was placed into the anterior chamber. Kenalog 0.2 cc was placed in the superior subconjunctival space. A drop of antibiotic and was placed and the eye was patched and shielded. The patient was stable and returned to the recovery room in excellent condition. He will monitor his blood glucose at home. Dictated by: Tamia Rodrigues MD Copy to: [facility]
--- NOTE | 2017-09-25 08:56 | PM.PREOP ---
Pre-operative Note Interval Note Pre-op Check: Yes History & Physical Reviewed by Physician Changes: No
[2017-09-25] MEDS: PROPARACAINE 0.5% OPHTH SOL 2 DROPS EYE-RIGHT (08:59)
[2017-09-25] MEDS: LIDOCAINE 2% 4 ML, BUPIVACAINE 0.5% (PF) 4 ML, HYALURONIDASE 150 UNIT INJ (09:05)
[2017-09-25] MEDS: HYALURONATE SODIUM 10 MG/ML SYRINGE INJ (09:20)
[2017-09-25] MEDS: CHONDROIDTIN/SOD HYALURONATE 1.05 ML SYRINGE INTRAOCULA (09:20)
[2017-09-25] MEDS: LIDOCAINE 1% W/EPI INJ 20 ML INJ (09:20)
[2017-09-25] MEDS: MOXIFLOXACIN OPHTH DROPS 3 ML BOTTLE 2 DROPS INJ (09:21)
[2017-09-25] MEDS: OFLOXACIN 0.3% OPHTH 5 ML 2 DROPS EYE-RIGHT (09:22)
[2017-09-25] MEDS: NEOMYCIN/POLY/DEX OPHTH OINT 1 APPLIC EYE-RIGHT (09:22)
[2017-09-25] MEDS: PHENYLEPHRINE/LIDOCAINE 3ML VIAL (OR) EYE-OP (09:23)
[2017-09-25] MEDS: TRIAMCINOLONE 50 MG/5 ML VIAL INJ (09:24)
[2017-09-25] MEDS: BALANCED SALT IRRIG SOLN NO.2 500 ML, EPINEPHrine 1 MG IRR (09:25)
[2017-09-25] MEDS: TRYPAN BLUE 0.5 ML SYRINGE INJ (09:25)
[2017-09-25] MEDS: BALANCED SALT IRRIG SOLN NO.2 15 ML IRRIG.SOLN IRR (09:28)
[2017-09-25 09:55] VITALS: BP 139/76; PULSE 73; RESP 16; TEMP 36.2; O2SAT 97
[2017-09-25] MEDS: CARBACHOL 1.5 ML VIAL INJ (09:59)
== END 2017-09-25 10:15 | disposition home or self-care (01) ==
LOC: OR 07:58
PROVIDERS: PCP Internal Medicine; Visit Provider Ophthalmology
PROC: (CPT 66982; principal; 2017-09-25 08:45)
DX: H25.11 Age-related nuclear cataract, right eye (principal); E11.9 Type 2 diabetes mellitus without complications; I10 Essential (primary) hypertension; I51.9 Heart disease, unspecified; H52.201 Unspecified astigmatism, right eye; H21.81 Floppy iris syndrome
CPT/HCPCS: 66982; J0171; J2704; J3301; J3470; V2787

== ENCOUNTER → 2017-10-15 13:40 | Outpatient (CLI) | payer MEDICARE, OTHER, SELFPAY ==
[2017-10-15 16:33] LABS: Hemoglobin A1C% w Est Avg Glu 8.1 % (4.0-6.0)
[2017-10-15 16:36] LABS: Blood Urea Nitrogen 17 mg/dL (9-20); Calcium 10.1 mg/dL (8.4-10.2); Carbon Dioxide 29 mmol/L (22-32); Chloride 99 mmol/L (98-107); Estimated Glomerular Filt Rate > 60.0 mL/min (>60); Glucose 254 mg/dL (80-110); HEMOLYSIS < 15 (0-50); Potassium 3.6 mmol/L (3.4-5.1); Sodium 140 mmol/L (137-145)
== END ==
PROVIDERS: PCP Internal Medicine; Visit Provider Internal Medicine
DX: E11.65 Type 2 diabetes mellitus with hyperglycemia (principal)
CPT/HCPCS: 36415; 80048; 83036

== ENCOUNTER → 2018-02-14 15:30 | Outpatient (CLI) | payer MEDICARE, OTHER, SELFPAY ==
[2018-02-14 16:03] LABS: Add Manual Diff / Slide Review NO; Basophils Percent Auto 1.2 % (0-2); Eosinophils Percent Auto 3.8 % (2-4); Hematocrit 45.1 % (41-53); Mean Corpuscular HGB Conc 35.4 % (30-36); Mean Corpuscular Hemoglobin 34.2 PG (26-34); Mean Corpuscular Volume 96.4 fL (80-100); Monocytes Percent Auto 8.8 % (3-14); Neutrophils Absolute Auto 5600 /uL (1500-7000); Neutrophils Percent Auto 62.2 % (50-75); Platelet Count 304 X10^3/uL (150-400); Red Blood Cell Count 4.68 X10^6/uL (4.5-5.9); Red Cell Distribution Width 13.9 % (11.6-14.8); White Blood Cell Count 9.1 X10^3/uL (4.5-11.0)
[2018-02-14 16:15] LABS: Hemoglobin A1C% w Est Avg Glu 8.5 % (4.0-6.0)
[2018-02-14 16:18] LABS: Alanine Aminotransferase 76 IU/L (21-72); Albumin Globulin Ratio 1.9 (1.0-2.8); Alkaline Phosphatase 134 U/L (38-126); Aspartate Aminotransferase 56 IU/L (17-59); BUN Creatinine Ratio 19.2 (6-22); Bilirubin Total 0.9 mg/dL (0.2-1.3); Blood Urea Nitrogen 25 mg/dL (9-20); Calcium 10.2 mg/dL (8.4-10.2); Carbon Dioxide 25 mmol/L (22-32); Chloride 95 mmol/L (98-107); Estimated Glomerular Filt Rate 53.7 mL/min (>60); Globulin 2.7 g/dL (1.7-4.1); Glucose 324 mg/dL (80-110); HEMOLYSIS < 15 (0-50); Potassium 3.5 mmol/L (3.4-5.1); Sodium 139 mmol/L (137-145); Total Protein 7.7 g/dL (6.3-8.2)
[2018-02-14 16:48] LABS: TSH w/ Reflex to FT4 3.29 uIU/mL (0.47-4.68)
== END ==
PROVIDERS: PCP Internal Medicine; Visit Provider Internal Medicine
DX: E11.9 Type 2 diabetes mellitus without complications (principal); I10 Essential (primary) hypertension; I25.10 Atherosclerotic heart disease of native coronary artery without angina pectoris
CPT/HCPCS: 36415; 80053; 83036; 84443; 85025

== ENCOUNTER 2018-02-18 13:00 | Outpatient (RCR) | payer MEDICARE, OTHER, SELFPAY ==
[2017-12-10 16:16] VITALS: BP 152/80
--- NOTE | 2017-12-12 16:58 | PT.OIE ---
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 (Chronic 1995) Peripheral vascular disease (Chronic 2009) Benign prostatic hyperplasia with urinary obstruction (Chronic 03/25/15) Polymyalgia rheumatica (Chronic 08/30/15) Primary osteoarthritis of both hips (Chronic 08/30/15) Gilbert's syndrome (Chronic) Kidney stones (Chronic 1984) Chronic back pain (Chronic 1989) Shoulder pain (Chronic 2011) Hayfever (Chronic 1999) Chicken pox (Resolved) Femur fracture (Resolved 1965) Fracture (Resolved 1951) Hepatitis A (Resolved 1963) Measles (Resolved) Melanoma (Resolved 1987) Mumps (Resolved) Past Surgical History (Last Reviewed 10/14/17 @ 13:00 by Matt Medina MD) History of orthopedic surgery (Resolved 1965) Status post appendectomy (Resolved 1956) Status post coronary artery bypass graft (Resolved 1995) Provider Visit Care Team Role Provider Type Matt Medina MD Attending Provider Physician Primary Care Provider Specialty: Internal Medicine Address: [address] [place] [address], [facility] Email: [email or web address] Physical Therapy Initial Evaluation PT-OP-A Visit Information Start: 12/12/17 16:15 Freq: Status: Active Protocol: Document 12/10/17 16:16 SAK (Rec: 12/12/17 16:44 SAK [id number]) Out-Patient Physical Therapy Visit Information Visit Information Visit Type Initial Evaluation Visit Note 03/13 Medicare Visit Start Time 14:30 Visit Stop Time 15:15 Total Visit Minutes 45 Visit Number 1 Number of CAMPUS WELLNESS COORDINATOR Visits 0 Evaluation Information Evaluation Date 12/10/17 PT-OP-B Current Condition Start: 12/12/17 16:15 Freq: Status: Active Protocol: Document 12/10/17 16:16 SAK (Rec: 12/12/17 16:44 SAK [id number]) Current Condition History of Current Condition Onset Date 3+ years Current Complaints dizziness, balance difficulty History of Current Condition Patient states his primary c/o is dizziness causing difficulty with balance and walking. States he has had dizziness for several years, has had medical work-up with cause of dizziness so far uncertain. Worst dizziness is after prolonged sitting, especially in his car; reports when he stands up from car feels dizzy and has difficulty walking. Currently is having cardiac monitoring for the month of December, started with new ceiling cleaner last month. Reports he has circulatory problems in his LE 's and will be consulting further with his physician; very limited in walking due to aching in legs. Has had a couple falls. PMH: arterial disease, arthritis, back pain, HTN, cancer, DM, quadrupal bypass, neck pain, SOB. Treatment Goals Patient/Caregiver Goals Decrease his dizziness, and improve his balance and walking. Prior Functional Status Baseline Function- ADL's Independent Baseline Function- Mobility Independent Baseline Function- Gait independent community ambulation Current Functional Impairments (Reported) Functional Limitations- ADL's Cautious Functional Limitations- Mobility/Gait Limited by dizziness, balance difficulty Functional Limitations- Work/School retired PT-OP-C Subjective Start: 12/12/17 16:15 Freq: Status: Active Protocol: Document 12/10/17 16:16 [facility] (Rec: 12/12/17 16:44 [facility] [id number]) Patient Questionnaires ABC- Activity Specific Balance Confidence Scale ABC Score 37 ABC Functional Impairment 20 to <40% Impaired (Score 61- 80) OP-PT Pain Assessment Location lumbar spine, thighs Intensity 4 Scale Used Numeric (1 - 10) PT-OP-D Balance Start: 12/12/17 16:15 Freq: Status: Active Protocol: Document 12/10/17 16:16 [facility] (Rec: 12/12/17 16:55 [facility] [id number]) OP-PT Balance Assessment Sitting Balance Static Sitting Balance Ability Normal Dynamic Sitting Balance Ability Normal Balance Tests Sandhu Balance Test Sandhu Impairment Rating 20 to 39% Impaired (Score 34- 44) Single Limb Standing Single Limb- Right 2 Single Limb- Left 1 Semi-Tandem Standing Semi-Tandem Standing Balance 3 sec Tandem Tandem Standing requires assist Sandhu Balance Assessment Evaluation Sitting to Standing Ability Independent w/out Hands Unsupported Stance Safely- 2 minutes Sitting Unsupported, Feet on Floor Safely- 2 minutes Standing to Sitting Ability Safely, Minimal Hand Use Transfer Ability Safely, Minimal Hand Use Unsupported Stance- Eyes Closed Safely, 10 seconds Unsupported Stance- Eyes Open Independent, 1 minute Reaching Forward Standing Safely, 5 inches Pick- Up Object From Floor Requires Supervision Look Behind Shoulder - Standing Turns Sideways Only Turning 360 Degrees Turns slowly, but safely Unsupported Stance, Alternating Feet on (I)- 8 Steps in 20 secs Stair Unsupported Tandem Stance Assist to Step-15 seconds Unilateral Leg Stance Lifts Leg/Unable to Hold Total Score Sandhu Total Score (out of 56 points) 42 Sandhu Impairment Rating 20 to 39% Impaired (Score 34- 44) Mendez Fall Scale Copyright Permission Vanessa JM, Vanessa RM, Ken SJ. Development of a scale to identify the fall- prone patient. Can J Aging 1989;8;366-7. Patti Mendez (2009). Preventing patient falls. (2nd ed). [place]: [place]. PT-OP-E Functional Tests Start: 12/12/17 16:15 Freq: Status: Active Protocol: Document 12/10/17 16:16 [facility] (Rec: 12/12/17 16:55 [facility] [id number]) Functional Tests Dynamic Gait Index (DGI) DGI Impairment Rating 20 to <40% Impaired (Score 15- 19) Five Times Sit to Stand Test Score 14 sec Timed Up and Go (TUG) Score 13 TUG Impairment Rating 20 to <40% Impaired (Score 12- 13) PT-OP-G Mobility & Gait Start: 12/12/17 16:15 Freq: Status: Active Protocol: Document 12/10/17 16:16 SAK (Rec: 12/12/17 16:58 [facility] [id number]) OP Gait Assessment Gait Gait Assistance Required: Independent Distance (Feet) 100 Assistive Devices Assistive Device None Gait Deviations General Gait Pattern Decreased Stride Length Decreased Feet Clearance PT-OP-K Range of Motion Start: 12/12/17 16:15 Freq: Status: Active Protocol: Document 12/10/17 16:16 SAK (Rec: 12/12/17 16:44 [facility] [id number]) Cervical Spine Range of Motion Cervical Spine Active Comments WFL, denied dizziness Lumbar Spine Range of Motion Lumbar Spine Active Comments WFL, denied dizziness with movement Hip Goniometric Range of Motion Hip ROM Limitations Comments WFL ginna LE's except ER left 35 , right 25 PSLR 55 left, 50 right Knee Goniometric Range of Motion Knee ROM Limitations Comments WFL Ankle and Foot Goniometric Range of Motion Ankle and Foot ROM Limitations ROM Limitations Soft Tissue Tightness Comments limited to neutral dorsiflexion ginna PT-OP-M Strength Start: 12/12/17 16:15 Freq: Status: Active Protocol: Document 12/10/17 16:16 [facility] (Rec: 12/12/17 16:44 [facility] [id number]) Hip Strength Hip Manual Muscle Testing Right Flexion (L2) 4 Good Extension (S1) 3+ Fair+ Abduction 4- Good- External Rotation 3+ Fair+ Internal Rotation 4 Good Left Flexion (L2) 4 Good Extension (S1) 3+ Fair+ Abduction 4- Good- External Rotation 3+ Fair+ Internal Rotation 4 Good Knee Strength Knee Manual Muscle Testing Right Flexion (S2) 4+ Good+ Extension (L3) 4+ Good+ Left Flexion (S2) 4+ Good+ Extension (L3) 4+ Good+ Ankle/Foot Strength Ankle and Foot Manual Muscle Testing Right Dorsiflexion (L4) 4 Good Plantarflexion (S1) 4 Good Left Dorsiflexion (L4) 4- Good- Plantarflexion (S1) 4- Good- PT-OP-Q Treatments Start: 12/12/17 16:15 Freq: Status: Active Protocol: Document 12/10/17 16:16 [facility] (Rec: 12/12/17 16:44 [facility] [id number]) Self-Care/Home Management Treatment Education Patient Education Home Exercise Program Other Education for balance training PT-OP-T Assessment and Plan Start: 12/12/17 16:15 Freq: Status: Active Protocol: Document 12/10/17 16:16 [facility] (Rec: 12/12/17 16:44 [facility] [id number]) Physical Therapy Assessment Rehab Potential Rehabilitation Potential Fair Evaluation Complexity Number of Personal Factors/Comorbidities 3 or More Number of Body Systems Impaired 3 Clinical Presentation at Evaluation Evolving Impairments Impairments Activity Tolerance Balance Gait Strength Other Impairments dizziness Goals Four Impairment weakness Half-Way Goal (LTG) Patient LE strength to improve to at least 4+/5 all LE muscle groups LTG Duration 2 months Three Impairment balance Bindery Machine Setter Goal (LTG) Improve Sandhu Balance score to 52 to decrease fall risk Decrease Get up and Go time to 10 sec Improve Dynamic Gait Index by 5 points LTG Duration 2 months Two Impairment dizziness Bindery Machine Setter Goal (LTG) Patient to be evaluated and treated as indicated by vestibular PT LTG Duration 2 months One Impairment gait Bindery Machine Setter Goal (LTG) Patient able to ambulate at home, yard, and in community for short distances without difficulty or reports of falls LTG Duration 2 months Assessment Summary Assessment Patient presents with limitation in activity tolerance and function due to dizziness, gait and balance dysfunction. Gait and balance dysfunction appear highly affected by dizziness, though patient has deficits in LE strength and high level balance skills. Would benefit from PT for evaluation and treatment by a vestibular specialist as well as balance and gait training. Patient has multiple medical issues complicating his health. Physical Therapy Plan Frequency and Duration Frequency of Treatment 2x/Week Duration of Treatment 2 months Plan of Care Start Date 12/10/17 Plan of Care End Date 02/09/18 Therapeutic Interventions Therapeutic Interventions Balance Training Gait Training Home Exercise Program Patient/Caregiver Education Self-Care/Home Management Therapeutic Activities Therapeutic Exercises Vestibular Rehabilitation Other Therapeutic Interventions Recommend patient be assessed by PT specializing in vestibular assessment and treatment Next Visit Focus/Plan Next Note Type Treatment Note Next Visit Plan Ther ex for balance training, gait training.
--- NOTE | 2017-12-12 16:58 | PT.OPPOC ---
Current Diagnoses Unspecified abnormalities of gait and mobility (12/10/17) Provider Visit Care Team Role Provider Type Matt Medina MD Attending Provider Physician Primary Care Provider Specialty: Internal Medicine Address: [address] [place] [address], [id number] Email: [email or web address] Plan Of Care PT-OP-T Assessment and Plan Start: 12/12/17 16:15 Freq: Status: Active Protocol: Document 12/10/17 16:16 SAK (Rec: 12/12/17 16:44 SAK [id number]) Physical Therapy Assessment Rehab Potential Rehabilitation Potential Fair Evaluation Complexity Number of Personal Factors/Comorbidities 3 or More Number of Body Systems Impaired 3 Clinical Presentation at Evaluation Evolving Impairments Impairments Activity Tolerance Balance Gait Strength Other Impairments dizziness Goals Four Impairment weakness Fpc Goal (LTG) Patient LE strength to improve to at least 4+/5 all LE muscle groups LTG Duration 2 months Three Impairment balance Painting Machine Operator Goal (LTG) Improve Sandhu Balance score to 52 to decrease fall risk Decrease Get up and Go time to 10 sec Improve Dynamic Gait Index by 5 points LTG Duration 2 months Two Impairment dizziness Fpc Goal (LTG) Patient to be evaluated and treated as indicated by vestibular PT LTG Duration 2 months One Impairment gait Painting Machine Operator Goal (LTG) Patient able to ambulate at home, yard, and in community for short distances without difficulty or reports of falls LTG Duration 2 months Assessment Summary Assessment Patient presents with limitation in activity tolerance and function due to dizziness, gait and balance dysfunction. Gait and balance dysfunction appear highly affected by dizziness, though patient has deficits in LE strength and high level balance skills. Would benefit from PT for evaluation and treatment by a vestibular specialist as well as balance and gait training. Patient has multiple medical issues complicating his health. Physical Therapy Plan Frequency and Duration Frequency of Treatment 2x/Week Duration of Treatment 2 months Plan of Care Start Date 12/10/17 Plan of Care End Date 02/09/18 Therapeutic Interventions Therapeutic Interventions Balance Training Gait Training Home Exercise Program Patient/Caregiver Education Self-Care/Home Management Therapeutic Activities Therapeutic Exercises Vestibular Rehabilitation Other Therapeutic Interventions Recommend patient be assessed by PT specializing in vestibular assessment and treatment Next Visit Focus/Plan Next Note Type Treatment Note Next Visit Plan Ther ex for balance training, gait training. Plan of Care Dates Plan of Care Start Date 12/10/17 Plan of Care End Date 02/09/18 Please Sign and Return: I have reviewed this Plan of Care and certify that the skilled therapy services above are required to meet the patient?s needs. Physician Signature Date Printed Name and Credentials Clinical Instructor Signature Printed Name and Credentials
--- NOTE | 2017-12-17 08:58 | PT.OTN ---
Current Diagnoses Unspecified abnormalities of gait and mobility (12/17/17) Physical Therapy Treatment Note PT-OP-A Visit Information Start: 12/12/17 16:15 Freq: Status: Active Protocol: Document 12/13/17 14:32 [facility] (Rec: 12/13/17 16:03 [facility] [id number]) Out-Patient Physical Therapy Visit Information Visit Information Visit Type Treatment Note Visit Note 04/13 Visit Start Time 14:32 Visit Stop Time 15:17 Total Visit Minutes 45 Visit Number 2 Number of SUGAR MILL WORKER Visits 0 Evaluation Information Evaluation Date 12/10/17 PT-OP-B Current Condition Start: 12/12/17 16:15 Freq: Status: Active Protocol: Document 12/10/17 16:16 SAK (Rec: 12/12/17 16:44 SAK [id number]) Current Condition History of Current Condition Onset Date 3+ years Current Complaints dizziness, balance difficulty History of Current Condition Patient states his primary c/o is dizziness causing difficulty with balance and walking. States he has had dizziness for several years, has had medical work-up with cause of dizziness so far uncertain. Worst dizziness is after prolonged sitting, especially in his car; reports when he stands up from car feels dizzy and has difficulty walking. Currently is having cardiac monitoring for the month of December, started with new machine assembler last month. Reports he has circulatory problems in his LE 's and will be consulting further with his physician; very limited in walking due to aching in legs. Has had a couple falls. PMH: arterial disease, arthritis, back pain, HTN, cancer, DM, quadrupal bypass, neck pain, SOB. Treatment Goals Patient/Caregiver Goals Decrease his dizziness, and improve his balance and walking. Prior Functional Status Baseline Function- ADL's Independent Baseline Function- Mobility Independent Baseline Function- Gait independent community ambulation Current Functional Impairments (Reported) Functional Limitations- ADL's Cautious Functional Limitations- Mobility/Gait Limited by dizziness, balance difficulty Functional Limitations- Work/School retired PT-OP-C Subjective Start: 12/12/17 16:15 Freq: Status: Active Protocol: Document 12/13/17 14:32 SAK (Rec: 12/13/17 16:03 [facility] [id number]) OP-PT Subjective Patient Comments Patient Comments No new c/o. Dizziness occurs after 30 min or more in the car. PT-OP-D Balance Start: 12/12/17 16:15 Freq: Status: Active Protocol: Document 12/10/17 16:16 SAK (Rec: 12/12/17 16:55 [facility] [id number]) OP-PT Balance Assessment Sitting Balance Static Sitting Balance Ability Normal Dynamic Sitting Balance Ability Normal Balance Tests Sandhu Balance Test Sandhu Impairment Rating 20 to 39% Impaired (Score 34- 44) Single Limb Standing Single Limb- Right 2 Single Limb- Left 1 Semi-Tandem Standing Semi-Tandem Standing Balance 3 sec Tandem Tandem Standing requires assist Sandhu Balance Assessment Evaluation Sitting to Standing Ability Independent w/out Hands Unsupported Stance Safely- 2 minutes Sitting Unsupported, Feet on Floor Safely- 2 minutes Standing to Sitting Ability Safely, Minimal Hand Use Transfer Ability Safely, Minimal Hand Use Unsupported Stance- Eyes Closed Safely, 10 seconds Unsupported Stance- Eyes Open Independent, 1 minute Reaching Forward Standing Safely, 5 inches Pick- Up Object From Floor Requires Supervision Look Behind Shoulder - Standing Turns Sideways Only Turning 360 Degrees Turns slowly, but safely Unsupported Stance, Alternating Feet on (I)- 8 Steps in 20 secs Stair Unsupported Tandem Stance Assist to Step-15 seconds Unilateral Leg Stance Lifts Leg/Unable to Hold Total Score Sandhu Total Score (out of 56 points) 42 Sandhu Impairment Rating 20 to 39% Impaired (Score 34- 44) Mendez Fall Scale Copyright Permission Vanessa MAURICIO, Vanessa RM, Ken SJ. Development of a scale to identify the fall- prone patient. Can J Aging 1989;8;366-7. Patti Mendez (2009). Preventing patient falls. (2nd ed). [place]: [place]. PT-OP-E Functional Tests Start: 12/12/17 16:15 Freq: Status: Active Protocol: Document 12/10/17 16:16 SAK (Rec: 12/12/17 16:55 [facility] [id number]) Functional Tests Dynamic Gait Index (DGI) DGI Impairment Rating 20 to <40% Impaired (Score 15- 19) Five Times Sit to Stand Test Score 14 sec Timed Up and Go (TUG) Score 13 TUG Impairment Rating 20 to <40% Impaired (Score 12- 13) PT-OP-G Mobility & Gait Start: 12/12/17 16:15 Freq: Status: Active Protocol: Document 12/10/17 16:16 SAK (Rec: 12/12/17 16:58 [facility] [id number]) OP Gait Assessment Gait Gait Assistance Required: Independent Distance (Feet) 100 Assistive Devices Assistive Device None Gait Deviations General Gait Pattern Decreased Stride Length Decreased Feet Clearance PT-OP-K Range of Motion Start: 12/12/17 16:15 Freq: Status: Active Protocol: Document 12/10/17 16:16 [facility] (Rec: 12/12/17 16:44 [facility] [id number]) Cervical Spine Range of Motion Cervical Spine Active Comments WFL, denied dizziness Lumbar Spine Range of Motion Lumbar Spine Active Comments WFL, denied dizziness with movement Hip Goniometric Range of Motion Hip ROM Limitations Comments WFL ginna LE's except ER left 35 , right 25 PSLR 55 left, 50 right Knee Goniometric Range of Motion Knee ROM Limitations Comments WFL Ankle and Foot Goniometric Range of Motion Ankle and Foot ROM Limitations ROM Limitations Soft Tissue Tightness Comments limited to neutral dorsiflexion ginna PT-OP-M Strength Start: 12/12/17 16:15 Freq: Status: Active Protocol: Document 12/10/17 16:16 [facility] (Rec: 12/12/17 16:44 [facility] [id number]) Hip Strength Hip Manual Muscle Testing Right Flexion (L2) 4 Good Extension (S1) 3+ Fair+ Abduction 4- Good- External Rotation 3+ Fair+ Internal Rotation 4 Good Left Flexion (L2) 4 Good Extension (S1) 3+ Fair+ Abduction 4- Good- External Rotation 3+ Fair+ Internal Rotation 4 Good Knee Strength Knee Manual Muscle Testing Right Flexion (S2) 4+ Good+ Extension (L3) 4+ Good+ Left Flexion (S2) 4+ Good+ Extension (L3) 4+ Good+ Ankle/Foot Strength Ankle and Foot Manual Muscle Testing Right Dorsiflexion (L4) 4 Good Plantarflexion (S1) 4 Good Left Dorsiflexion (L4) 4- Good- Plantarflexion (S1) 4- Good- PT-OP-Q Treatments Start: 12/12/17 16:15 Freq: Status: Active Protocol: Document 12/13/17 14:32 [facility] (Rec: 12/13/17 16:03 [facility] [id number]) Cardio Equipment Recumbent Stepper (Sci-Fit) Duration (Minutes) 6 Resistance 1 Seat Position 14 Gym Equipment Shuttle Balance standing bal Details chains red, chains green Comments balance and weight-shifts chains red shallow squats, walking across , EC; chains green Therapeutic Exercises Standing Exercises 1 Standing Exercise Name HC stretch Equipment Used IVANA Gait Training Gait Activity stair Treatment Focus reciprocal pattern, safety Comments able to do reciprocal pattern safely after education and practice Neuro Re-Education Treatment Balance Activities 5 Details walking with head turns 4 Details backward walking 3 Details sidestepping 2 Details tandem stand 1 Details SLS Reps/Duration 2 min hurdles Comments 2 steps in between, then 1 step; min UE support in parallel bars Balance board Details fwd/bck, side/side EO, EC PT-OP-T Assessment and Plan Start: 12/12/17 16:15 Freq: Status: Active Protocol: Document 12/13/17 14:32 SAK (Rec: 12/17/17 08:57 SAK [id number]) Physical Therapy Assessment Goals Four Impairment weakness Alf Goal (LTG) Patient LE strength to improve to at least 4+/5 all LE muscle groups LTG Duration 2 months Three Impairment balance Packager And Strapper Goal (LTG) Improve Sandhu Balance score to 52 to decrease fall risk Decrease Get up and Go time to 10 sec Improve Dynamic Gait Index by 5 points LTG Duration 2 months Two Impairment dizziness Packager And Strapper Goal (LTG) Patient to be evaluated and treated as indicated by vestibular PT LTG Duration 2 months One Impairment gait Packager And Strapper Goal (LTG) Patient able to ambulate at home, yard, and in community for short distances without difficulty or reports of falls LTG Duration 2 months Assessment Summary Assessment No dizziness elicited today, good tolerance for ther ex with occasional rest. Verbal and manual cues for balance reactions, education for safe stair ambulation today. Physical Therapy Plan Frequency and Duration Frequency of Treatment 2x/Week Duration of Treatment 2 months Plan of Care Start Date 12/10/17 Plan of Care End Date 02/09/18 Therapeutic Interventions Therapeutic Interventions Balance Training Gait Training Home Exercise Program Patient/Caregiver Education Self-Care/Home Management Therapeutic Activities Therapeutic Exercises Vestibular Rehabilitation Other Therapeutic Interventions Recommend patient be assessed by PT specializing in vestibular assessment and treatment Next Visit Focus/Plan Next Note Type Treatment Note Next Visit Plan Ther ex for balance training, gait training, strengthening. Vestibular eval when able.
--- NOTE | 2017-12-17 15:26 | PT.OTN ---
Current Diagnoses Unspecified abnormalities of gait and mobility (12/17/17) Physical Therapy Treatment Note PT-OP-A Visit Information Start: 12/12/17 16:15 Freq: Status: Active Protocol: Document 12/17/17 09:45 DCW (Rec: 12/17/17 15:25 DCW [id number]) Out-Patient Physical Therapy Visit Information Visit Information Visit Type Progress Note Visit Start Time 09:45 Visit Stop Time 10:30 Total Visit Minutes 45 Visit Number 3 Number of PAINT AND TABLE EDGER Visits 0 Evaluation Information Evaluation Date 12/10/17 PT-OP-B Current Condition Start: 12/12/17 16:15 Freq: Status: Active Protocol: Document 12/10/17 16:16 SAK (Rec: 12/12/17 16:44 SAK [id number]) Current Condition History of Current Condition Onset Date 3+ years Current Complaints dizziness, balance difficulty History of Current Condition Patient states his primary c/o is dizziness causing difficulty with balance and walking. States he has had dizziness for several years, has had medical work-up with cause of dizziness so far uncertain. Worst dizziness is after prolonged sitting, especially in his car; reports when he stands up from car feels dizzy and has difficulty walking. Currently is having cardiac monitoring for the month of December, started with new stitch marker last month. Reports he has circulatory problems in his LE 's and will be consulting further with his physician; very limited in walking due to aching in legs. Has had a couple falls. PMH: arterial disease, arthritis, back pain, HTN, cancer, DM, quadrupal bypass, neck pain, SOB. Treatment Goals Patient/Caregiver Goals Decrease his dizziness, and improve his balance and walking. Prior Functional Status Baseline Function- ADL's Independent Baseline Function- Mobility Independent Baseline Function- Gait independent community ambulation Current Functional Impairments (Reported) Functional Limitations- ADL's Cautious Functional Limitations- Mobility/Gait Limited by dizziness, balance difficulty Functional Limitations- Work/School retired PT-OP-C Subjective Start: 12/12/17 16:15 Freq: Status: Active Protocol: Document 12/17/17 09:45 DCW (Rec: 12/17/17 15:26 DCW [id number]) OP-PT Subjective Patient Comments Patient Comments Pt reports he is very sore today, and he did not sleep well. Patient Reported Progress Same PT-OP-D Balance Start: 12/12/17 16:15 Freq: Status: Active Protocol: Document 12/10/17 16:16 SAK (Rec: 12/12/17 16:55 [facility] [id number]) OP-PT Balance Assessment Sitting Balance Static Sitting Balance Ability Normal Dynamic Sitting Balance Ability Normal Balance Tests Sandhu Balance Test Sandhu Impairment Rating 20 to 39% Impaired (Score 34- 44) Single Limb Standing Single Limb- Right 2 Single Limb- Left 1 Semi-Tandem Standing Semi-Tandem Standing Balance 3 sec Tandem Tandem Standing requires assist Sandhu Balance Assessment Evaluation Sitting to Standing Ability Independent w/out Hands Unsupported Stance Safely- 2 minutes Sitting Unsupported, Feet on Floor Safely- 2 minutes Standing to Sitting Ability Safely, Minimal Hand Use Transfer Ability Safely, Minimal Hand Use Unsupported Stance- Eyes Closed Safely, 10 seconds Unsupported Stance- Eyes Open Independent, 1 minute Reaching Forward Standing Safely, 5 inches Pick- Up Object From Floor Requires Supervision Look Behind Shoulder - Standing Turns Sideways Only Turning 360 Degrees Turns slowly, but safely Unsupported Stance, Alternating Feet on (I)- 8 Steps in 20 secs Stair Unsupported Tandem Stance Assist to Step-15 seconds Unilateral Leg Stance Lifts Leg/Unable to Hold Total Score Sandhu Total Score (out of 56 points) 42 Sandhu Impairment Rating 20 to 39% Impaired (Score 34- 44) Mendez Fall Scale Copyright Permission Vanessa MAURICIO, Vanessa RM, Ken SJ. Development of a scale to identify the fall- prone patient. Can J Aging 1989;8;366-7. Patti Mendez (2009). Preventing patient falls. (2nd ed). [place]: [place]. PT-OP-E Functional Tests Start: 12/12/17 16:15 Freq: Status: Active Protocol: Document 12/10/17 16:16 SAK (Rec: 12/12/17 16:55 [facility] [id number]) Functional Tests Dynamic Gait Index (DGI) DGI Impairment Rating 20 to <40% Impaired (Score 15- 19) Five Times Sit to Stand Test Score 14 sec Timed Up and Go (TUG) Score 13 TUG Impairment Rating 20 to <40% Impaired (Score 12- 13) PT-OP-G Mobility & Gait Start: 12/12/17 16:15 Freq: Status: Active Protocol: Document 12/10/17 16:16 SAK (Rec: 12/12/17 16:58 [facility] [id number]) OP Gait Assessment Gait Gait Assistance Required: Independent Distance (Feet) 100 Assistive Devices Assistive Device None Gait Deviations General Gait Pattern Decreased Stride Length Decreased Feet Clearance PT-OP-K Range of Motion Start: 12/12/17 16:15 Freq: Status: Active Protocol: Document 12/10/17 16:16 [facility] (Rec: 12/12/17 16:44 [facility] [id number]) Cervical Spine Range of Motion Cervical Spine Active Comments WFL, denied dizziness Lumbar Spine Range of Motion Lumbar Spine Active Comments WFL, denied dizziness with movement Hip Goniometric Range of Motion Hip ROM Limitations Comments WFL ginna LE's except ER left 35 , right 25 PSLR 55 left, 50 right Knee Goniometric Range of Motion Knee ROM Limitations Comments WFL Ankle and Foot Goniometric Range of Motion Ankle and Foot ROM Limitations ROM Limitations Soft Tissue Tightness Comments limited to neutral dorsiflexion ginna PT-OP-M Strength Start: 12/12/17 16:15 Freq: Status: Active Protocol: Document 12/10/17 16:16 [facility] (Rec: 12/12/17 16:44 [facility] [id number]) Hip Strength Hip Manual Muscle Testing Right Flexion (L2) 4 Good Extension (S1) 3+ Fair+ Abduction 4- Good- External Rotation 3+ Fair+ Internal Rotation 4 Good Left Flexion (L2) 4 Good Extension (S1) 3+ Fair+ Abduction 4- Good- External Rotation 3+ Fair+ Internal Rotation 4 Good Knee Strength Knee Manual Muscle Testing Right Flexion (S2) 4+ Good+ Extension (L3) 4+ Good+ Left Flexion (S2) 4+ Good+ Extension (L3) 4+ Good+ Ankle/Foot Strength Ankle and Foot Manual Muscle Testing Right Dorsiflexion (L4) 4 Good Plantarflexion (S1) 4 Good Left Dorsiflexion (L4) 4- Good- Plantarflexion (S1) 4- Good- PT-OP-O Vestibular Start: 12/12/17 16:15 Freq: Status: Active Protocol: Document 12/17/17 09:45 DCW (Rec: 12/17/17 15:25 DCW [id number]) Vestibular Assessment Screening Tests Vestibular Artery Screen Negative Auditory Tests Carrasquillo Test Negative Rinne Test Negative Air Conduction Results Equal Visual Testing Smooth Pursuits Horizontal Negative Smooth Pursuits Vertical Negative Saccades Horizontal Negative Gaze Evoked Nystagmus With Fixation Negative Gaze Evoked Nystagmus Without Fixation Negative Heave Test Positive Bilateral Thrust Head Positive Bilateral DVA (Line Degradation) 0 Head Shake Negative Positional Testing Casi-Hallpike Negative Left Negative Right Rolling Test Negative Left Negative Right Vestibular Function Tests CTSIB Position 1 Mild Sway CTSIB Position 2 Severe Sway CTSIB Position 3 Fall Reaction CTSIB Position 4 Moderate Sway CTSIB Position 5 Fall Reaction CTSIB Position 6 Fall Reaction PT-OP-Q Treatments Start: 12/12/17 16:15 Freq: Status: Active Protocol: Document 12/17/17 09:45 DCW (Rec: 12/17/17 15:25 DCW [id number]) Manual Therapy Treatment Other Other Manual Treatments Vestibular assessment PT-OP-T Assessment and Plan Start: 12/12/17 16:15 Freq: Status: Active Protocol: Document 12/17/17 09:45 DCW (Rec: 12/17/17 15:25 DCW [id number]) Physical Therapy Assessment Goals Four Impairment weakness Senior Living Goal (LTG) Patient LE strength to improve to at least 4+/5 all LE muscle groups LTG Duration 2 months Three Impairment balance Cook Pressure Goal (LTG) Improve Sandhu Balance score to 52 to decrease fall risk Decrease Get up and Go time to 10 sec Improve Dynamic Gait Index by 5 points LTG Duration 2 months Two Impairment dizziness Senior Living Goal (LTG) Patient to be evaluated and treated as indicated by vestibular PT LTG Duration 2 months One Impairment gait Senior Living Goal (LTG) Patient able to ambulate at home, yard, and in community for short distances without difficulty or reports of falls LTG Duration 2 months Assessment Summary Assessment Pt is currently being seen for balance issues, and his primary therapist requested a vestibular assessment. Pt reports he typically gets disoriented, spinning, with unclear vision, typically when getting out of his car after driving for more than an hour, and the sensation lasts for between one and ten minutes. Pt presented with an entirely negative vestibular examination, with the exception of a mildly bilaterally positive thrust/ heave test, which is expected with age-related vestibular loss. Pt does display decreased balance, as seen on his CTSIB, however there is no indication that his inner ear is the cause. Pt should benefit from continued balance training. Physical Therapy Plan Frequency and Duration Frequency of Treatment 2x/Week Duration of Treatment 2 months Plan of Care Start Date 12/17/17 Plan of Care End Date 02/16/18 Therapeutic Interventions Therapeutic Interventions Balance Training Gait Training Home Exercise Program Patient/Caregiver Education Self-Care/Home Management Therapeutic Activities Therapeutic Exercises Vestibular Rehabilitation Next Visit Focus/Plan Next Note Type Treatment Note Next Visit Plan Ther ex for balance training, gait training, strengthening.
--- NOTE | 2017-12-17 15:27 | PT.OPPOC ---
Current Diagnoses Unspecified abnormalities of gait and mobility (12/17/17) Provider Visit Care Team Role Provider Type Matt Medina MD Attending Provider Physician Primary Care Provider Specialty: Internal Medicine Address: [address] [place] [address], [id number] Email: [email or web address] Plan Of Care PT-OP-T Assessment and Plan Start: 12/12/17 16:15 Freq: Status: Active Protocol: Document 12/17/17 09:45 DCW (Rec: 12/17/17 15:25 DCW [id number]) Physical Therapy Assessment Goals Four Impairment weakness Half-Way Goal (LTG) Patient LE strength to improve to at least 4+/5 all LE muscle groups LTG Duration 2 months Three Impairment balance Die Engraver Goal (LTG) Improve Sandhu Balance score to 52 to decrease fall risk Decrease Get up and Go time to 10 sec Improve Dynamic Gait Index by 5 points LTG Duration 2 months Two Impairment dizziness Die Engraver Goal (LTG) Patient to be evaluated and treated as indicated by vestibular PT LTG Duration 2 months One Impairment gait Die Engraver Goal (LTG) Patient able to ambulate at home, yard, and in community for short distances without difficulty or reports of falls LTG Duration 2 months Assessment Summary Assessment Pt is currently being seen for balance issues, and his primary therapist requested a vestibular assessment. Pt reports he typically gets disoriented, spinning, with unclear vision, typically when getting out of his car after driving for more than an hour, and the sensation lasts for between one and ten minutes. Pt presented with an entirely negative vestibular examination, with the exception of a mildly bilaterally positive thrust/ heave test, which is expected with age-related vestibular loss. Pt does display decreased balance, as seen on his CTSIB, however there is no indication that his inner ear is the cause. Pt should benefit from continued balance training. Physical Therapy Plan Frequency and Duration Frequency of Treatment 2x/Week Duration of Treatment 2 months Plan of Care Start Date 12/17/17 Plan of Care End Date 02/16/18 Therapeutic Interventions Therapeutic Interventions Balance Training Gait Training Home Exercise Program Patient/Caregiver Education Self-Care/Home Management Therapeutic Activities Therapeutic Exercises Vestibular Rehabilitation Next Visit Focus/Plan Next Note Type Treatment Note Next Visit Plan Ther ex for balance training, gait training, strengthening. Plan of Care Dates Plan of Care Start Date 12/17/17 Plan of Care End Date 02/16/18 Please Sign and Return: I have reviewed this Plan of Care and certify that the skilled therapy services above are required to meet the patient?s needs. Physician Signature Date Printed Name and Credentials Clinical Instructor Signature Printed Name and Credentials
--- NOTE | 2017-12-19 16:34 | PT.OTN ---
Current Diagnoses Unspecified abnormalities of gait and mobility (12/19/17) Physical Therapy Treatment Note PT-OP-A Visit Information Start: 12/12/17 16:15 Freq: Status: Active Protocol: Document 12/19/17 14:32 SAK (Rec: 12/19/17 16:29 [facility] [id number]) Out-Patient Physical Therapy Visit Information Visit Information Visit Type Treatment Note Visit Start Time 14:30 Visit Stop Time 15:15 Total Visit Minutes 45 Visit Number 4 Number of STATE FARM AGENT Visits 0 Evaluation Information Evaluation Date 12/10/17 PT-OP-B Current Condition Start: 12/12/17 16:15 Freq: Status: Active Protocol: Document 12/10/17 16:16 SAK (Rec: 12/12/17 16:44 SAK [id number]) Current Condition History of Current Condition Onset Date 3+ years Current Complaints dizziness, balance difficulty History of Current Condition Patient states his primary c/o is dizziness causing difficulty with balance and walking. States he has had dizziness for several years, has had medical work-up with cause of dizziness so far uncertain. Worst dizziness is after prolonged sitting, especially in his car; reports when he stands up from car feels dizzy and has difficulty walking. Currently is having cardiac monitoring for the month of December, started with new therapist asst last month. Reports he has circulatory problems in his LE 's and will be consulting further with his physician; very limited in walking due to aching in legs. Has had a couple falls. PMH: arterial disease, arthritis, back pain, HTN, cancer, DM, quadrupal bypass, neck pain, SOB. Treatment Goals Patient/Caregiver Goals Decrease his dizziness, and improve his balance and walking. Prior Functional Status Baseline Function- ADL's Independent Baseline Function- Mobility Independent Baseline Function- Gait independent community ambulation Current Functional Impairments (Reported) Functional Limitations- ADL's Cautious Functional Limitations- Mobility/Gait Limited by dizziness, balance difficulty Functional Limitations- Work/School retired PT-OP-C Subjective Start: 12/12/17 16:15 Freq: Status: Active Protocol: Document 12/19/17 14:32 SAK (Rec: 12/19/17 16:29 [facility] [id number]) OP-PT Subjective Patient Comments Patient Comments No new c/o, not as sore. Golfed yesterday. After drive back from [place] (30 min) legs initially didn't do what I wanted them to do. PT-OP-D Balance Start: 12/12/17 16:15 Freq: Status: Active Protocol: Document 12/10/17 16:16 [facility] (Rec: 12/12/17 16:55 [facility] [id number]) OP-PT Balance Assessment Sitting Balance Static Sitting Balance Ability Normal Dynamic Sitting Balance Ability Normal Balance Tests Sandhu Balance Test Sandhu Impairment Rating 20 to 39% Impaired (Score 34- 44) Single Limb Standing Single Limb- Right 2 Single Limb- Left 1 Semi-Tandem Standing Semi-Tandem Standing Balance 3 sec Tandem Tandem Standing requires assist Sandhu Balance Assessment Evaluation Sitting to Standing Ability Independent w/out Hands Unsupported Stance Safely- 2 minutes Sitting Unsupported, Feet on Floor Safely- 2 minutes Standing to Sitting Ability Safely, Minimal Hand Use Transfer Ability Safely, Minimal Hand Use Unsupported Stance- Eyes Closed Safely, 10 seconds Unsupported Stance- Eyes Open Independent, 1 minute Reaching Forward Standing Safely, 5 inches Pick- Up Object From Floor Requires Supervision Look Behind Shoulder - Standing Turns Sideways Only Turning 360 Degrees Turns slowly, but safely Unsupported Stance, Alternating Feet on (I)- 8 Steps in 20 secs Stair Unsupported Tandem Stance Assist to Step-15 seconds Unilateral Leg Stance Lifts Leg/Unable to Hold Total Score Sandhu Total Score (out of 56 points) 42 Sandhu Impairment Rating 20 to 39% Impaired (Score 34- 44) Mendez Fall Scale Copyright Permission Vanessa MAURICIO, Vanessa RM, Ken SJ. Development of a scale to identify the fall- prone patient. Can J Aging 1989;8;366-7. Patti Mendez (2009). Preventing patient falls. (2nd ed). [place]: [place]. PT-OP-E Functional Tests Start: 12/12/17 16:15 Freq: Status: Active Protocol: Document 12/10/17 16:16 SAK (Rec: 12/12/17 16:55 [facility] [id number]) Functional Tests Dynamic Gait Index (DGI) DGI Impairment Rating 20 to <40% Impaired (Score 15- 19) Five Times Sit to Stand Test Score 14 sec Timed Up and Go (TUG) Score 13 TUG Impairment Rating 20 to <40% Impaired (Score 12- 13) PT-OP-G Mobility & Gait Start: 12/12/17 16:15 Freq: Status: Active Protocol: Document 12/10/17 16:16 SAK (Rec: 12/12/17 16:58 SAK [id number]) OP Gait Assessment Gait Gait Assistance Required: Independent Distance (Feet) 100 Assistive Devices Assistive Device None Gait Deviations General Gait Pattern Decreased Stride Length Decreased Feet Clearance PT-OP-K Range of Motion Start: 12/12/17 16:15 Freq: Status: Active Protocol: Document 12/10/17 16:16 SAK (Rec: 12/12/17 16:44 SAK [id number]) Cervical Spine Range of Motion Cervical Spine Active Comments WFL, denied dizziness Lumbar Spine Range of Motion Lumbar Spine Active Comments WFL, denied dizziness with movement Hip Goniometric Range of Motion Hip ROM Limitations Comments WFL ginna LE's except ER left 35 , right 25 PSLR 55 left, 50 right Knee Goniometric Range of Motion Knee ROM Limitations Comments WFL Ankle and Foot Goniometric Range of Motion Ankle and Foot ROM Limitations ROM Limitations Soft Tissue Tightness Comments limited to neutral dorsiflexion ginna PT-OP-M Strength Start: 12/12/17 16:15 Freq: Status: Active Protocol: Document 12/10/17 16:16 SAK (Rec: 12/12/17 16:44 [facility] [id number]) Hip Strength Hip Manual Muscle Testing Right Flexion (L2) 4 Good Extension (S1) 3+ Fair+ Abduction 4- Good- External Rotation 3+ Fair+ Internal Rotation 4 Good Left Flexion (L2) 4 Good Extension (S1) 3+ Fair+ Abduction 4- Good- External Rotation 3+ Fair+ Internal Rotation 4 Good Knee Strength Knee Manual Muscle Testing Right Flexion (S2) 4+ Good+ Extension (L3) 4+ Good+ Left Flexion (S2) 4+ Good+ Extension (L3) 4+ Good+ Ankle/Foot Strength Ankle and Foot Manual Muscle Testing Right Dorsiflexion (L4) 4 Good Plantarflexion (S1) 4 Good Left Dorsiflexion (L4) 4- Good- Plantarflexion (S1) 4- Good- PT-OP-O Vestibular Start: 12/12/17 16:15 Freq: Status: Active Protocol: Document 12/17/17 09:45 DCW (Rec: 12/17/17 15:25 DCW [id number]) Vestibular Assessment Screening Tests Vestibular Artery Screen Negative Auditory Tests Carrasquillo Test Negative Rinne Test Negative Air Conduction Results Equal Visual Testing Smooth Pursuits Horizontal Negative Smooth Pursuits Vertical Negative Saccades Horizontal Negative Gaze Evoked Nystagmus With Fixation Negative Gaze Evoked Nystagmus Without Fixation Negative Heave Test Positive Bilateral Thrust Head Positive Bilateral DVA (Line Degradation) 0 Head Shake Negative Positional Testing Casi-Hallpike Negative Left Negative Right Rolling Test Negative Left Negative Right Vestibular Function Tests CTSIB Position 1 Mild Sway CTSIB Position 2 Severe Sway CTSIB Position 3 Fall Reaction CTSIB Position 4 Moderate Sway CTSIB Position 5 Fall Reaction CTSIB Position 6 Fall Reaction PT-OP-Q Treatments Start: 12/12/17 16:15 Freq: Status: Active Protocol: Document 12/19/17 14:32 [facility] (Rec: 12/19/17 16:29 [facility] [id number]) Cardio Equipment Recumbent Stepper (Sci-Fit) Duration (Minutes) 8 Resistance 1 Seat Position 12 Gym Equipment Shuttle Balance standing bal Details chains red, chains green Comments balance and weight-shifts chains red shallow squats, walking across , EC; chains green Therapeutic Exercises Standing Exercises HS stretch Reps/Minutes 2 1 Standing Exercise Name HC stretch Equipment Used IVANA Neuro Re-Education Treatment Balance Activities lunges Details forward/back weight shifts Surface firm Comments feet flat on ground 5 Details walking with head turns 4 Details backward walking 3 Details sidestepping 2 Details tandem stand 1 Details SLS Reps/Duration 2 min hurdles Details forward, sideways Comments 1 step in between hurdles forward, min UE support in parallel bars Balance board Details fwd/bck, side/side EO, EC PT-OP-T Assessment and Plan Start: 12/12/17 16:15 Freq: Status: Active Protocol: Document 12/19/17 14:32 [facility] (Rec: 12/19/17 16:29 [facility] [id number]) Physical Therapy Assessment Goals Four Impairment weakness Rim Turning Machine Operator Goal (LTG) Patient LE strength to improve to at least 4+/5 all LE muscle groups LTG Duration 2 months Three Impairment balance Fpc Goal (LTG) Improve Sandhu Balance score to 52 to decrease fall risk Decrease Get up and Go time to 10 sec Improve Dynamic Gait Index by 5 points LTG Duration 2 months Two Impairment dizziness Rim Turning Machine Operator Goal (LTG) Patient to be evaluated and treated as indicated by vestibular PT LTG Duration 2 months One Impairment gait Rim Turning Machine Operator Goal (LTG) Patient able to ambulate at home, yard, and in community for short distances without difficulty or reports of falls LTG Duration 2 months Assessment Summary Assessment Increasing exercise tolerance and improving balance reaction ability Physical Therapy Plan Frequency and Duration Frequency of Treatment 2x/Week Duration of Treatment 2 months Plan of Care Start Date 12/17/17 Plan of Care End Date 02/16/18 Therapeutic Interventions Therapeutic Interventions Balance Training Gait Training Home Exercise Program Patient/Caregiver Education Self-Care/Home Management Therapeutic Activities Therapeutic Exercises Vestibular Rehabilitation Next Visit Focus/Plan Next Note Type Treatment Note Next Visit Plan Continue PT for balanmce training, gait traning, strengthening.
--- NOTE | 2017-12-24 10:58 | PT.OTN ---
Current Diagnoses Unspecified abnormalities of gait and mobility (12/24/17) Physical Therapy Treatment Note PT-OP-A Visit Information Start: 12/12/17 16:15 Freq: Status: Active Protocol: Document 12/24/17 09:00 GGD (Rec: 12/24/17 10:58 GGD [email or web address]) Out-Patient Physical Therapy Visit Information Visit Information Visit Type Treatment Note Visit Start Time 09:00 Visit Stop Time 09:40 Total Visit Minutes 40 Visit Number 5 Number of HEALTHCARE RECRUITER Visits 1 Evaluation Information Evaluation Date 12/10/17 PT-OP-B Current Condition Start: 12/12/17 16:15 Freq: Status: Active Protocol: Document 12/10/17 16:16 SAK (Rec: 12/12/17 16:44 SAK [id number]) Current Condition History of Current Condition Onset Date 3+ years Current Complaints dizziness, balance difficulty History of Current Condition Patient states his primary c/o is dizziness causing difficulty with balance and walking. States he has had dizziness for several years, has had medical work-up with cause of dizziness so far uncertain. Worst dizziness is after prolonged sitting, especially in his car; reports when he stands up from car feels dizzy and has difficulty walking. Currently is having cardiac monitoring for the month of December, started with new communications equipment supervisor last month. Reports he has circulatory problems in his LE 's and will be consulting further with his physician; very limited in walking due to aching in legs. Has had a couple falls. PMH: arterial disease, arthritis, back pain, HTN, cancer, DM, quadrupal bypass, neck pain, SOB. Treatment Goals Patient/Caregiver Goals Decrease his dizziness, and improve his balance and walking. Prior Functional Status Baseline Function- ADL's Independent Baseline Function- Mobility Independent Baseline Function- Gait independent community ambulation Current Functional Impairments (Reported) Functional Limitations- ADL's Cautious Functional Limitations- Mobility/Gait Limited by dizziness, balance difficulty Functional Limitations- Work/School retired PT-OP-C Subjective Start: 12/12/17 16:15 Freq: Status: Active Protocol: Document 12/24/17 09:00 GGD (Rec: 12/24/17 10:58 GGD [email or web address]) OP-PT Subjective Patient Comments Patient Comments Pt states his balance is feeling better today. He feels that he is getting stronger. PT-OP-D Balance Start: 12/12/17 16:15 Freq: Status: Active Protocol: Document 12/10/17 16:16 SAK (Rec: 12/12/17 16:[address] [facility] [id number]) OP-PT Balance Assessment Sitting Balance Static Sitting Balance Ability Normal Dynamic Sitting Balance Ability Normal Balance Tests Sandhu Balance Test Sandhu Impairment Rating 20 to 39% Impaired (Score 34- 44) Single Limb Standing Single Limb- Right 2 Single Limb- Left 1 Semi-Tandem Standing Semi-Tandem Standing Balance 3 sec Tandem Tandem Standing requires assist Sandhu Balance Assessment Evaluation Sitting to Standing Ability Independent w/out Hands Unsupported Stance Safely- 2 minutes Sitting Unsupported, Feet on Floor Safely- 2 minutes Standing to Sitting Ability Safely, Minimal Hand Use Transfer Ability Safely, Minimal Hand Use Unsupported Stance- Eyes Closed Safely, 10 seconds Unsupported Stance- Eyes Open Independent, 1 minute Reaching Forward Standing Safely, 5 inches Pick- Up Object From Floor Requires Supervision Look Behind Shoulder - Standing Turns Sideways Only Turning 360 Degrees Turns slowly, but safely Unsupported Stance, Alternating Feet on (I)- 8 Steps in 20 secs Stair Unsupported Tandem Stance Assist to Step-15 seconds Unilateral Leg Stance Lifts Leg/Unable to Hold Total Score Sandhu Total Score (out of 56 points) 42 Sandhu Impairment Rating 20 to 39% Impaired (Score 34- 44) Mendez Fall Scale Copyright Permission Vanessa MAURICIO, Vanessa RM, Ken SJ. Development of a scale to identify the fall- prone patient. Can J Aging 1989;8;366-7. Patti Mendez (2009). Preventing patient falls. (2nd ed). [place]: [place]. PT-OP-E Functional Tests Start: 12/12/17 16:15 Freq: Status: Active Protocol: Document 12/10/17 16:16 SAK (Rec: 12/12/17 16:[address] [facility] [id number]) Functional Tests Dynamic Gait Index (DGI) DGI Impairment Rating 20 to <40% Impaired (Score 15- 19) Five Times Sit to Stand Test Score 14 sec Timed Up and Go (TUG) Score 13 TUG Impairment Rating 20 to <40% Impaired (Score 12- 13) PT-OP-G Mobility & Gait Start: 12/12/17 16:15 Freq: Status: Active Protocol: Document 12/10/17 16:16 SAK (Rec: 12/12/17 16:58 SAK [id number]) OP Gait Assessment Gait Gait Assistance Required: Independent Distance (Feet) 100 Assistive Devices Assistive Device None Gait Deviations General Gait Pattern Decreased Stride Length Decreased Feet Clearance PT-OP-K Range of Motion Start: 12/12/17 16:15 Freq: Status: Active Protocol: Document 12/10/17 16:[address] [facility] (Rec: 12/12/17 16:[address] [facility] [id number]) Cervical Spine Range of Motion Cervical Spine Active Comments WFL, denied dizziness Lumbar Spine Range of Motion Lumbar Spine Active Comments WFL, denied dizziness with movement Hip Goniometric Range of Motion Hip ROM Limitations Comments WFL ginna LE's except ER left 35 , right 25 PSLR 55 left, 50 right Knee Goniometric Range of Motion Knee ROM Limitations Comments WFL Ankle and Foot Goniometric Range of Motion Ankle and Foot ROM Limitations ROM Limitations Soft Tissue Tightness Comments limited to neutral dorsiflexion ginna PT-OP-M Strength Start: 12/12/17 16:15 Freq: Status: Active Protocol: Document 12/10/17 16:[address] [facility] (Rec: 12/12/17 16:[address] [facility] [id number]) Hip Strength Hip Manual Muscle Testing Right Flexion (L2) 4 Good Extension (S1) 3+ Fair+ Abduction 4- Good- External Rotation 3+ Fair+ Internal Rotation 4 Good Left Flexion (L2) 4 Good Extension (S1) 3+ Fair+ Abduction 4- Good- External Rotation 3+ Fair+ Internal Rotation 4 Good Knee Strength Knee Manual Muscle Testing Right Flexion (S2) 4+ Good+ Extension (L3) 4+ Good+ Left Flexion (S2) 4+ Good+ Extension (L3) 4+ Good+ Ankle/Foot Strength Ankle and Foot Manual Muscle Testing Right Dorsiflexion (L4) 4 Good Plantarflexion (S1) 4 Good Left Dorsiflexion (L4) 4- Good- Plantarflexion (S1) 4- Good- PT-OP-O Vestibular Start: 12/12/17 16:15 Freq: Status: Active Protocol: Document 12/17/17 09:45 DCW (Rec: 12/17/17 15:25 DC[facility] [id number]) Vestibular Assessment Screening Tests Vestibular Artery Screen Negative Auditory Tests Carrasquillo Test Negative Rinne Test Negative Air Conduction Results Equal Visual Testing Smooth Pursuits Horizontal Negative Smooth Pursuits Vertical Negative Saccades Horizontal Negative Gaze Evoked Nystagmus With Fixation Negative Gaze Evoked Nystagmus Without Fixation Negative Heave Test Positive Bilateral Thrust Head Positive Bilateral DVA (Line Degradation) 0 Head Shake Negative Positional Testing Casi-Hallpike Negative Left Negative Right Rolling Test Negative Left Negative Right Vestibular Function Tests CTSIB Position 1 Mild Sway CTSIB Position 2 Severe Sway CTSIB Position 3 Fall Reaction CTSIB Position 4 Moderate Sway CTSIB Position 5 Fall Reaction CTSIB Position 6 Fall Reaction PT-OP-Q Treatments Start: 12/12/17 16:15 Freq: Status: Active Protocol: Document 12/24/17 09:00 GGD (Rec: 12/24/17 10:58 GGD [email or web address]) Cardio Equipment Recumbent Elliptical (Biodex) Duration (Minutes) 8 Resistance 2 Gym Equipment Shuttle Balance standing bal Details chains red, chains green Comments balance and weight-shifts chains red shallow squats, walking across , EC; chains green Therapeutic Exercises Standing Exercises HS stretch Reps/Minutes 2 1 Standing Exercise Name HC stretch Equipment Used IVANA Neuro Re-Education Treatment Balance Activities lunges Details forward/back 5 Details walking with head turns 4 Details backward walking Equipment yellow band 3 Details sidestepping Equipment yellow band 1 Details SLS Reps/Duration 2 min hurdles Details forward, sideways Comments 1 step in between hurdles forward, min UE support in parallel bars Balance board Details fwd/bck, side/side head turns, EO, EC PT-OP-T Assessment and Plan Start: 12/12/17 16:15 Freq: Status: Active Protocol: Document 12/24/17 09:00 GGD (Rec: 12/24/17 10:58 GGD [email or web address]) Physical Therapy Assessment Assessment Summary Assessment Pt fatigued with LE Strengthening. He had improved balance with EO and head turns, but challanged with EC. Physical Therapy Plan Frequency and Duration Frequency of Treatment 2x/Week Duration of Treatment 2 months Plan of Care Start Date 12/17/17 Plan of Care End Date 02/16/18 Next Visit Focus/Plan Next Note Type Treatment Note Next Visit Plan Progrss balance, gait and LE strengthening.
--- NOTE | 2017-12-31 16:26 | PT.OTN ---
Current Diagnoses Unspecified abnormalities of gait and mobility (12/31/17) Physical Therapy Treatment Note PT-OP-A Visit Information Start: 12/12/17 16:15 Freq: Status: Active Protocol: Document 12/27/17 14:30 SAK (Rec: 12/27/17 16:21 SAK [id number]) Out-Patient Physical Therapy Visit Information Visit Information Visit Type Aquatic Treatment Note PT-OP-B Current Condition Start: 12/12/17 16:15 Freq: Status: Active Protocol: Document 12/10/17 16:16 SAK (Rec: 12/12/17 16:44 SAK [id number]) Current Condition History of Current Condition Onset Date 3+ years Current Complaints dizziness, balance difficulty History of Current Condition Patient states his primary c/o is dizziness causing difficulty with balance and walking. States he has had dizziness for several years, has had medical work-up with cause of dizziness so far uncertain. Worst dizziness is after prolonged sitting, especially in his car; reports when he stands up from car feels dizzy and has difficulty walking. 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 Reports he has circulatory problems in his LE 's and will be consulting further with his physician; very limited in walking due to aching in legs. Has had a couple falls. PMH: arterial disease, arthritis, back pain, HTN, cancer, DM, quadrupal bypass, neck pain, SOB. Treatment Goals Patient/Caregiver Goals Decrease his dizziness, and improve his balance and walking. Prior Functional Status Baseline Function- ADL's Independent Baseline Function- Mobility Independent Baseline Function- Gait independent community ambulation Current Functional Impairments (Reported) Functional Limitations- ADL's Cautious Functional Limitations- Mobility/Gait Limited by dizziness, balance difficulty Functional Limitations- Work/School retired PT-OP-C Subjective Start: 12/12/17 16:15 Freq: Status: Active Protocol: Document 12/31/17 14:37 SAK (Rec: 12/31/17 15:21 SAK [id number]) OP-PT Subjective Patient Comments Patient Comments no new c/o, denies falls. Has surgical consult 01/13/18 regarding LE bypass surgery. PT-OP-D Balance Start: 12/12/17 16:15 Freq: Status: Active Protocol: Document 12/10/17 16:16 SAK (Rec: 12/12/17 16:55 SAK [id number]) OP-PT Balance Assessment Sitting Balance Static Sitting Balance Ability Normal Dynamic Sitting Balance Ability Normal Balance Tests Sandhu Balance Test Sandhu Impairment Rating 20 to 39% Impaired (Score 34- 44) Single Limb Standing Single Limb- Right 2 Single Limb- Left 1 Semi-Tandem Standing Semi-Tandem Standing Balance 3 sec Tandem Tandem Standing requires assist Sandhu Balance Assessment Evaluation Sitting to Standing Ability Independent w/out Hands Unsupported Stance Safely- 2 minutes Sitting Unsupported, Feet on Floor Safely- 2 minutes Standing to Sitting Ability Safely, Minimal Hand Use Transfer Ability Safely, Minimal Hand Use Unsupported Stance- Eyes Closed Safely, 10 seconds Unsupported Stance- Eyes Open Independent, 1 minute Reaching Forward Standing Safely, 5 inches Pick- Up Object From Floor Requires Supervision Look Behind Shoulder - Standing Turns Sideways Only Turning 360 Degrees Turns slowly, but safely Unsupported Stance, Alternating Feet on (I)- 8 Steps in 20 secs Stair Unsupported Tandem Stance Assist to Step-15 seconds Unilateral Leg Stance Lifts Leg/Unable to Hold Total Score Sandhu Total Score (out of 56 points) 42 Sandhu Impairment Rating 20 to 39% Impaired (Score 34- 44) Mendez Fall Scale Copyright Permission Vanessa MAURICIO, Vanessa RM, Ken SJ. Development of a scale to identify the fall- prone patient. Can J Aging 1989;8;366-7. Patti Mendez (2009). Preventing patient falls. (2nd ed). [place]: [place]. PT-OP-E Functional Tests Start: 12/12/17 16:15 Freq: Status: Active Protocol: Document 12/10/17 16:16 [facility] (Rec: 12/12/17 16:55 [facility] [id number]) Functional Tests Dynamic Gait Index (DGI) DGI Impairment Rating 20 to <40% Impaired (Score 15- 19) Five Times Sit to Stand Test Score 14 sec Timed Up and Go (TUG) Score 13 TUG Impairment Rating 20 to <40% Impaired (Score 12- 13) PT-OP-G Mobility & Gait Start: 12/12/17 16:15 Freq: Status: Active Protocol: Document 12/10/17 16:16 [facility] (Rec: 12/12/17 16:58 [facility] [id number]) OP Gait Assessment Gait Gait Assistance Required: Independent Distance (Feet) 100 Assistive Devices Assistive Device None Gait Deviations General Gait Pattern Decreased Stride Length Decreased Feet Clearance PT-OP-K Range of Motion Start: 12/12/17 16:15 Freq: Status: Active Protocol: Document 12/10/17 16:16 [facility] (Rec: 12/12/17 16:44 [facility] [id number]) Cervical Spine Range of Motion Cervical Spine Active Comments WFL, denied dizziness Lumbar Spine Range of Motion Lumbar Spine Active Comments WFL, denied dizziness with movement Hip Goniometric Range of Motion Hip ROM Limitations Comments WFL ginna LE's except ER left 35 , right 25 PSLR 55 left, 50 right Knee Goniometric Range of Motion Knee ROM Limitations Comments WFL Ankle and Foot Goniometric Range of Motion Ankle and Foot ROM Limitations ROM Limitations Soft Tissue Tightness Comments limited to neutral dorsiflexion ginna PT-OP-M Strength Start: 12/12/17 16:15 Freq: Status: Active Protocol: Document 12/10/17 16:16 [facility] (Rec: 12/12/17 16:44 [facility] [id number]) Hip Strength Hip Manual Muscle Testing Right Flexion (L2) 4 Good Extension (S1) 3+ Fair+ Abduction 4- Good- External Rotation 3+ Fair+ Internal Rotation 4 Good Left Flexion (L2) 4 Good Extension (S1) 3+ Fair+ Abduction 4- Good- External Rotation 3+ Fair+ Internal Rotation 4 Good Knee Strength Knee Manual Muscle Testing Right Flexion (S2) 4+ Good+ Extension (L3) 4+ Good+ Left Flexion (S2) 4+ Good+ Extension (L3) 4+ Good+ Ankle/Foot Strength Ankle and Foot Manual Muscle Testing Right Dorsiflexion (L4) 4 Good Plantarflexion (S1) 4 Good Left Dorsiflexion (L4) 4- Good- Plantarflexion (S1) 4- Good- PT-OP-O Vestibular Start: 12/12/17 16:15 Freq: Status: Active Protocol: Document 12/17/17 09:45 DCW (Rec: 12/17/17 15:25 DCW [id number]) Vestibular Assessment Screening Tests Vestibular Artery Screen Negative Auditory Tests Carrasquillo Test Negative Rinne Test Negative Air Conduction Results Equal Visual Testing Smooth Pursuits Horizontal Negative Smooth Pursuits Vertical Negative Saccades Horizontal Negative Gaze Evoked Nystagmus With Fixation Negative Gaze Evoked Nystagmus Without Fixation Negative Heave Test Positive Bilateral Thrust Head Positive Bilateral DVA (Line Degradation) 0 Head Shake Negative Positional Testing [place]-Hallpike Negative Left Negative Right Rolling Test Negative Left Negative Right Vestibular Function Tests CTSIB Position 1 Mild Sway CTSIB Position 2 Severe Sway CTSIB Position 3 Fall Reaction CTSIB Position 4 Moderate Sway CTSIB Position 5 Fall Reaction CTSIB Position 6 Fall Reaction PT-OP-Q Treatments Start: 12/12/17 16:15 Freq: Status: Active Protocol: Document 12/31/17 14:37 [facility] (Rec: 12/31/17 15:21 [facility] [id number]) Cardio Equipment Recumbent Elliptical (Biodex) Duration (Minutes) 8 Resistance 3 Gym Equipment Shuttle Balance standing bal Details chains red, chains green Comments balance and weight-shifts chains red shallow squats, walking across , EC; chains green Therapeutic Exercises Standing Exercises HS stretch Reps/Minutes 2 1 Standing Exercise Name HC stretch Equipment Used IVANA Gait Training Gait Activity stair Treatment Focus reciprocal pattern, safety Comments 4 stairs x 20 stairs Neuro Re-Education Treatment Balance Activities lunges Details forward/back weight shifts Surface firm 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 feet flat on ground 5 Details walking with head turns 4 Details backward walking Equipment yellow band 3 Details sidestepping Equipment yellow band 2 Details tandem stand 1 Details SLS Reps/Duration 2 min hurdles Details forward, sideways Comments 1 step in between hurdles forward, min UE support in parallel bars PT-OP-T Assessment and Plan Start: 12/12/17 16:15 Freq: Status: Active Protocol: Document 12/31/17 14:37 [facility] (Rec: 12/31/17 15:21 [facility] [id number]) Physical Therapy Assessment Goals Four Impairment weakness Jail Goal (LTG) Patient LE strength to improve to at least 4+/5 all LE muscle groups LTG Duration 2 months Three Impairment balance Autom[employer] Service Consultant Goal (LTG) Improve Sandhu Balance score to 52 to decrease fall risk Decrease Get up and Go time to 10 sec Improve Dynamic Gait Index by 5 points LTG Duration 2 months Two Impairment dizziness Jail Goal (LTG) Patient to be evaluated and treated as indicated by vestibular PT LTG Duration 2 months One Impairment gait [employer] Service Consultant Goal (LTG) Patient able to ambulate at home, yard, and in community for short distances without difficulty or reports of falls LTG Duration 2 months Assessment Summary Assessment Poor compliance to HEP, but overall reports doing better, less LOB, no falls. Physical Therapy Plan Frequency and Duration Frequency of Treatment 2x/Week Duration of Treatment 2 months Plan of Care Start Date 12/17/17 Plan of Care End Date 02/16/18 Therapeutic Interventions Therapeutic Interventions Balance Training Gait Training Home Exercise Program Patient/Caregiver Education Self-Care/Home Management Therapeutic Activities Therapeutic Exercises Vestibular Rehabilitation Next Visit Focus/Plan Next Note Type Treatment Note Next Visit Plan Progrss balance, gait and LE strengthening.
--- NOTE | 2018-01-03 16:16 | PT.OTN ---
Current Diagnoses Unspecified abnormalities of gait and mobility (01/03/18) Physical Therapy Treatment Note PT-OP-A Visit Information Start: 12/12/17 16:15 Freq: Status: Active Protocol: Document 01/03/18 11:22 AMB (Rec: 01/03/18 11:25 AMB [id number]) Out-Patient Physical Therapy Visit Information Visit Information Visit Type Treatment Note Visit Start Time 11:15 Visit Stop Time 12:00 Total Visit Minutes 45 Visit Number 7 PT-OP-B Current Condition Start: 12/12/17 16:15 Freq: Status: Active Protocol: Document 12/10/17 16:16 SAK (Rec: 12/12/17 16:44 SAK [id number]) Current Condition History of Current Condition Onset Date 3+ years Current Complaints dizziness, balance difficulty History of Current Condition Patient states his primary c/o is dizziness causing difficulty with balance and walking. States he has had dizziness for several years, has had medical work-up with cause of dizziness so far uncertain. Worst dizziness is after prolonged sitting, especially in his car; reports when he stands up from car feels dizzy and has difficulty walking. 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 Reports he has circulatory problems in his LE 's and will be consulting further with his physician; very limited in walking due to aching in legs. Has had a couple falls. PMH: arterial disease, arthritis, back pain, HTN, cancer, DM, quadrupal bypass, neck pain, SOB. Treatment Goals Patient/Caregiver Goals Decrease his dizziness, and improve his balance and walking. Prior Functional Status Baseline Function- ADL's Independent Baseline Function- Mobility Independent Baseline Function- Gait independent community ambulation Current Functional Impairments (Reported) Functional Limitations- ADL's Cautious Functional Limitations- Mobility/Gait Limited by dizziness, balance difficulty Functional Limitations- Work/School retired PT-OP-C Subjective Start: 12/12/17 16:15 Freq: Status: Active Protocol: Document 01/03/18 11:22 AMB (Rec: 01/03/18 11:25 AMB [id number]) OP-PT Subjective Patient Comments Patient Comments Pt feels overall dizziness is the same, feels that veering with walking is the most when getting up from sitting for awhile. PT-OP-D Balance Start: 12/12/17 16:15 Freq: Status: Active Protocol: Document 12/10/17 16:16 [facility] (Rec: 12/12/17 16:55 [facility] [id number]) OP-PT Balance Assessment Sitting Balance Static Sitting Balance Ability Normal Dynamic Sitting Balance Ability Normal Balance Tests Sandhu Balance Test Sandhu Impairment Rating 20 to 39% Impaired (Score 34- 44) Single Limb Standing Single Limb- Right 2 Single Limb- Left 1 Semi-Tandem Standing Semi-Tandem Standing Balance 3 sec Tandem Tandem Standing requires assist Sandhu Balance Assessment Evaluation Sitting to Standing Ability Independent w/out Hands Unsupported Stance Safely- 2 minutes Sitting Unsupported, Feet on Floor Safely- 2 minutes Standing to Sitting Ability Safely, Minimal Hand Use Transfer Ability Safely, Minimal Hand Use Unsupported Stance- Eyes Closed Safely, 10 seconds Unsupported Stance- Eyes Open Independent, 1 minute Reaching Forward Standing Safely, 5 inches Pick- Up Object From Floor Requires Supervision Look Behind Shoulder - Standing Turns Sideways Only Turning 360 Degrees Turns slowly, but safely Unsupported Stance, Alternating Feet on (I)- 8 Steps in 20 secs Stair Unsupported Tandem Stance Assist to Step-15 seconds Unilateral Leg Stance Lifts Leg/Unable to Hold Total Score Sandhu Total Score (out of 56 points) 42 Sandhu Impairment Rating 20 to 39% Impaired (Score 34- 44) Mendez Fall Scale Copyright Permission Vanessa MAURICIO, Vanessa RM, Ken SJ. Development of a scale to identify the fall- prone patient. Can J Aging 1989;8;366-7. Patti Mendez (2009). Preventing patient falls. (2nd ed). Dickenson: Lawrence. PT-OP-E Functional Tests Start: 12/12/17 16:15 Freq: Status: Active Protocol: Document 12/10/17 16:16 [facility] (Rec: 12/12/17 16:55 [facility] [id number]) Functional Tests Dynamic Gait Index (DGI) DGI Impairment Rating 20 to <40% Impaired (Score 15- 19) Five Times Sit to Stand Test Score 14 sec Timed Up and Go (TUG) Score 13 TUG Impairment Rating 20 to <40% Impaired (Score 12- 13) PT-OP-G Mobility & Gait Start: 12/12/17 16:15 Freq: Status: Active Protocol: Document 12/10/17 16:16 [facility] (Rec: 12/12/17 16:58 [facility] [id number]) OP Gait Assessment Gait Gait Assistance Required: Independent Distance (Feet) 100 Assistive Devices Assistive Device None Gait Deviations General Gait Pattern Decreased Stride Length Decreased Feet Clearance PT-OP-K Range of Motion Start: 12/12/17 16:15 Freq: Status: Active Protocol: Document 12/10/17 16:16 [facility] (Rec: 12/12/17 16:44 [facility] [id number]) Cervical Spine Range of Motion Cervical Spine Active Comments WFL, denied dizziness Lumbar Spine Range of Motion Lumbar Spine Active Comments WFL, denied dizziness with movement Hip Goniometric Range of Motion Hip ROM Limitations Comments WFL ginna LE's except ER left 35 , right 25 PSLR 55 left, 50 right Knee Goniometric Range of Motion Knee ROM Limitations Comments WFL Ankle and Foot Goniometric Range of Motion Ankle and Foot ROM Limitations ROM Limitations Soft Tissue Tightness Comments limited to neutral dorsiflexion ginna PT-OP-M Strength Start: 12/12/17 16:15 Freq: Status: Active Protocol: Document 12/10/17 16:16 [facility] (Rec: 12/12/17 16:44 [facility] [id number]) Hip Strength Hip Manual Muscle Testing Right Flexion (L2) 4 Good Extension (S1) 3+ Fair+ Abduction 4- Good- External Rotation 3+ Fair+ Internal Rotation 4 Good Left Flexion (L2) 4 Good Extension (S1) 3+ Fair+ Abduction 4- Good- External Rotation 3+ Fair+ Internal Rotation 4 Good Knee Strength Knee Manual Muscle Testing Right Flexion (S2) 4+ Good+ Extension (L3) 4+ Good+ Left Flexion (S2) 4+ Good+ Extension (L3) 4+ Good+ Ankle/Foot Strength Ankle and Foot Manual Muscle Testing Right Dorsiflexion (L4) 4 Good Plantarflexion (S1) 4 Good Left Dorsiflexion (L4) 4- Good- Plantarflexion (S1) 4- Good- PT-OP-O Vestibular Start: 12/12/17 16:15 Freq: Status: Active Protocol: Document 12/17/17 09:45 DCW (Rec: 12/17/17 15:25 DCW [id number]) Vestibular Assessment Screening Tests Vestibular Artery Screen Negative Auditory Tests Carrasquillo Test Negative Rinne Test Negative Air Conduction Results Equal Visual Testing Smooth Pursuits Horizontal Negative Smooth Pursuits Vertical Negative Saccades Horizontal Negative Gaze Evoked Nystagmus With Fixation Negative Gaze Evoked Nystagmus Without Fixation Negative Heave Test Positive Bilateral Thrust Head Positive Bilateral DVA (Line Degradation) 0 Head Shake Negative Positional Testing Clifton-Hallpike Negative Left Negative Right Rolling Test Negative Left Negative Right Vestibular Function Tests CTSIB Position 1 Mild Sway CTSIB Position 2 Severe Sway CTSIB Position 3 Fall Reaction CTSIB Position 4 Moderate Sway CTSIB Position 5 Fall Reaction CTSIB Position 6 Fall Reaction PT-OP-Q Treatments Start: 12/12/17 16:15 Freq: Status: Active Protocol: Document 01/03/18 11:15 AMB (Rec: 01/03/18 11:28 AMB [id number]) Cardio Equipment Recumbent Elliptical (Biodex) Duration (Minutes) 8 Resistance 3 Gym Equipment Shuttle Balance standing bal Details chains red, chains green Comments balance and weight-shifts chains red shallow squats, walking across , EC; chains green Therapeutic Exercises Standing Exercises HS stretch Reps/Minutes 2 1 Standing Exercise Name HC stretch Equipment Used IVANA Neuro Re-Education Treatment Balance Activities lunges Details forward/back weight shifts Surface firm Comments feet flat on ground 5 Details walking with head turns 4 Details backward walking Equipment yellow band 3 Details sidestepping Equipment yellow band 2 Details tandem stand 1 Details SLS Reps/Duration 2 min PT-OP-T Assessment and Plan Start: 12/12/17 16:15 Freq: Status: Active Protocol: Document 01/03/18 11:15 AMB (Rec: 01/03/18 16:14 AMB [id number]) Physical Therapy Assessment Assessment Summary Assessment Pt felt that he was having a better balance day today, but R knee pain limited him. Physical Therapy Plan Next Visit Focus/Plan Next Note Type Treatment Note Next Visit Plan Progrss balance, gait and LE strengthening.
--- NOTE | 2018-01-07 16:16 | PT.OTN ---
Current Diagnoses Unspecified abnormalities of gait and mobility (01/07/18) Physical Therapy Treatment Note PT-OP-A Visit Information Start: 12/12/17 16:15 Freq: Status: Active Protocol: Document 01/07/18 14:37 SAK (Rec: 01/07/18 15:14 SAK [id number]) Out-Patient Physical Therapy Visit Information Visit Information Visit Type Treatment Note Visit Start Time 14:30 Visit Stop Time 15:15 Total Visit Minutes 45 Visit Number 9 Number of PAID SEARCH MARKETING STRATEGIST Visits 0 PT-OP-B Current Condition Start: 12/12/17 16:15 Freq: Status: Active Protocol: Document 12/10/17 16:16 SAK (Rec: 12/12/17 16:44 SAK [id number]) Current Condition History of Current Condition Onset Date 3+ years Current Complaints dizziness, balance difficulty History of Current Condition Patient states his primary c/o is dizziness causing difficulty with balance and walking. States he has had dizziness for several years, has had medical work-up with cause of dizziness so far uncertain. Worst dizziness is after prolonged sitting, especially in his car; reports when he stands up from car feels dizzy and has difficulty walking. 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 Reports he has circulatory problems in his LE 's and will be consulting further with his physician; very limited in walking due to aching in legs. Has had a couple falls. PMH: arterial disease, arthritis, back pain, HTN, cancer, DM, quadrupal bypass, neck pain, SOB. Treatment Goals Patient/Caregiver Goals Decrease his dizziness, and improve his balance and walking. Prior Functional Status Baseline Function- ADL's Independent Baseline Function- Mobility Independent Baseline Function- Gait independent community ambulation Current Functional Impairments (Reported) Functional Limitations- ADL's Cautious Functional Limitations- Mobility/Gait Limited by dizziness, balance difficulty Functional Limitations- Work/School retired PT-OP-C Subjective Start: 12/12/17 16:15 Freq: Status: Active Protocol: Document 01/07/18 14:37 SAK (Rec: 01/07/18 15:14 SAK [id number]) OP-PT Subjective Patient Comments Patient Comments Sore and tight from using elliptical at home x 3 min. Balance not real good today, jerky. PT-OP-D Balance Start: 12/12/17 16:15 Freq: Status: Active Protocol: Document 12/10/17 16:16 [facility] (Rec: 12/12/17 16:55 [facility] [id number]) OP-PT Balance Assessment Sitting Balance Static Sitting Balance Ability Normal Dynamic Sitting Balance Ability Normal Balance Tests Sandhu Balance Test Sandhu Impairment Rating 20 to 39% Impaired (Score 34- 44) Single Limb Standing Single Limb- Right 2 Single Limb- Left 1 Semi-Tandem Standing Semi-Tandem Standing Balance 3 sec Tandem Tandem Standing requires assist Sandhu Balance Assessment Evaluation Sitting to Standing Ability Independent w/out Hands Unsupported Stance Safely- 2 minutes Sitting Unsupported, Feet on Floor Safely- 2 minutes Standing to Sitting Ability Safely, Minimal Hand Use Transfer Ability Safely, Minimal Hand Use Unsupported Stance- Eyes Closed Safely, 10 seconds Unsupported Stance- Eyes Open Independent, 1 minute Reaching Forward Standing Safely, 5 inches Pick- Up Object From Floor Requires Supervision Look Behind Shoulder - Standing Turns Sideways Only Turning 360 Degrees Turns slowly, but safely Unsupported Stance, Alternating Feet on (I)- 8 Steps in 20 secs Stair Unsupported Tandem Stance Assist to Step-15 seconds Unilateral Leg Stance Lifts Leg/Unable to Hold Total Score Sandhu Total Score (out of 56 points) 42 Sandhu Impairment Rating 20 to 39% Impaired (Score 34- 44) Mendez Fall Scale Copyright Permission Vanessa JM, Vanessa RM, Ken SJ. Development of a scale to identify the fall- prone patient. Can J Aging 1989;8;366-7. Patti Mendez (2009). Preventing patient falls. (2nd ed). Hamblen: Lawrence. PT-OP-E Functional Tests Start: 12/12/17 16:15 Freq: Status: Active Protocol: Document 12/10/17 16:16 [facility] (Rec: 12/12/17 16:55 [facility] [id number]) Functional Tests Dynamic Gait Index (DGI) DGI Impairment Rating 20 to <40% Impaired (Score 15- 19) Five Times Sit to Stand Test Score 14 sec Timed Up and Go (TUG) Score 13 TUG Impairment Rating 20 to <40% Impaired (Score 12- 13) PT-OP-G Mobility & Gait Start: 12/12/17 16:15 Freq: Status: Active Protocol: Document 12/10/17 16:16 [facility] (Rec: 12/12/17 16:58 [facility] [id number]) OP Gait Assessment Gait Gait Assistance Required: Independent Distance (Feet) 100 Assistive Devices Assistive Device None Gait Deviations General Gait Pattern Decreased Stride Length Decreased Feet Clearance PT-OP-K Range of Motion Start: 12/12/17 16:15 Freq: Status: Active Protocol: Document 12/10/17 16:16 [facility] (Rec: 12/12/17 16:44 [facility] [id number]) Cervical Spine Range of Motion Cervical Spine Active Comments WFL, denied dizziness Lumbar Spine Range of Motion Lumbar Spine Active Comments WFL, denied dizziness with movement Hip Goniometric Range of Motion Hip ROM Limitations Comments WFL ginna LE's except ER left 35 , right 25 PSLR 55 left, 50 right Knee Goniometric Range of Motion Knee ROM Limitations Comments WFL Ankle and Foot Goniometric Range of Motion Ankle and Foot ROM Limitations ROM Limitations Soft Tissue Tightness Comments limited to neutral dorsiflexion ginna PT-OP-M Strength Start: 12/12/17 16:15 Freq: Status: Active Protocol: Document 12/10/17 16:16 [facility] (Rec: 12/12/17 16:44 [facility] [id number]) Hip Strength Hip Manual Muscle Testing Right Flexion (L2) 4 Good Extension (S1) 3+ Fair+ Abduction 4- Good- External Rotation 3+ Fair+ Internal Rotation 4 Good Left Flexion (L2) 4 Good Extension (S1) 3+ Fair+ Abduction 4- Good- External Rotation 3+ Fair+ Internal Rotation 4 Good Knee Strength Knee Manual Muscle Testing Right Flexion (S2) 4+ Good+ Extension (L3) 4+ Good+ Left Flexion (S2) 4+ Good+ Extension (L3) 4+ Good+ Ankle/Foot Strength Ankle and Foot Manual Muscle Testing Right Dorsiflexion (L4) 4 Good Plantarflexion (S1) 4 Good Left Dorsiflexion (L4) 4- Good- Plantarflexion (S1) 4- Good- PT-OP-O Vestibular Start: 12/12/17 16:15 Freq: Status: Active Protocol: Document 12/17/17 09:45 DCW (Rec: 12/17/17 15:25 DCW [id number]) Vestibular Assessment Screening Tests Vestibular Artery Screen Negative Auditory Tests Carrasquillo Test Negative Rinne Test Negative Air Conduction Results Equal Visual Testing Smooth Pursuits Horizontal Negative Smooth Pursuits Vertical Negative Saccades Horizontal Negative Gaze Evoked Nystagmus With Fixation Negative Gaze Evoked Nystagmus Without Fixation Negative Heave Test Positive Bilateral Thrust Head Positive Bilateral DVA (Line Degradation) 0 Head Shake Negative Positional Testing Casi-Hallpike Negative Left Negative Right Rolling Test Negative Left Negative Right Vestibular Function Tests CTSIB Position 1 Mild Sway CTSIB Position 2 Severe Sway CTSIB Position 3 Fall Reaction CTSIB Position 4 Moderate Sway CTSIB Position 5 Fall Reaction CTSIB Position 6 Fall Reaction PT-OP-Q Treatments Start: 12/12/17 16:15 Freq: Status: Active Protocol: Document 01/07/18 14:37 [facility] (Rec: 01/07/18 15:14 [facility] [id number]) Cardio Equipment Elliptical Duration (Minutes) 1 Resistance 1 Recumbent Stepper (Sci-Fit) Duration (Minutes) 10 Resistance 2 Gym Equipment Shuttle Balance standing bal Details chains red, chains green Comments balance and weight-shifts chains red Head turns EO, throw/catch ball with rebounder; 4-square ball, red weighted ball (CG to min assist for bal) Therapeutic Exercises Standing Exercises quad stretch Reps/Minutes 2x Comments chair HS stretch Reps/Minutes 2 Comments stair 1 Standing Exercise Name HC stretch Equipment Used IVANA Neuro Re-Education Treatment Balance Activities marching Equipment 2# ankle weights Reps/Duration 2 min lunges Details forward/back Comments tried lateral but painful 5 Details walking with head turns hurdles Details forward, sideways Equipment 2# ankle weights Comments 2 steps in between hurdles forward, min UE support in parallel bars PT-OP-T Assessment and Plan Start: 12/12/17 16:15 Freq: Status: Active Protocol: Document 01/07/18 14:37 [facility] (Rec: 01/07/18 15:14 [facility] [id number]) Physical Therapy Assessment Goals Four Impairment weakness Custodial Goal (LTG) Patient LE strength to improve to at least 4+/5 all LE muscle groups LTG Duration 2 months Three Impairment balance Custodial Goal (LTG) Improve Sandhu Balance score to 52 to decrease fall risk Decrease Get up and Go time to 10 sec Improve Dynamic Gait Index by 5 points LTG Duration 2 months Two Impairment dizziness Regulatory Associate Goal (LTG) Patient to be evaluated and treated as indicated by vestibular PT (goal met, no further treatment) LTG Duration 2 months One Impairment gait Custodial Goal (LTG) Patient able to ambulate at home, yard, and in community for short distances without difficulty or reports of falls LTG Duration 2 months Assessment Summary Assessment Improved performance on shuttle balance today, closed chain exercises limited by left knee pain. Physical Therapy Plan Frequency and Duration Frequency of Treatment 2x/Week Duration of Treatment 2 months Plan of Care Start Date 12/17/17 Plan of Care End Date 02/16/18 Therapeutic Interventions Therapeutic Interventions Balance Training Gait Training Home Exercise Program Patient/Caregiver Education Self-Care/Home Management Therapeutic Activities Therapeutic Exercises Vestibular Rehabilitation Next Visit Focus/Plan Next Note Type Re-Evaluation Next Visit Plan Re-test balance, strength
--- NOTE | 2018-01-12 11:20 | PT.OTN ---
Current Diagnoses Unspecified abnormalities of gait and mobility (01/10/18) Physical Therapy Treatment Note PT-OP-A Visit Information Start: 12/12/17 16:15 Freq: Status: Active Protocol: Document 01/10/18 14:32 SAK (Rec: 01/10/18 14:42 SAK [id number]) Out-Patient Physical Therapy Visit Information Visit Information Visit Type Treatment Note Visit Start Time 14:30 Visit Stop Time 15:15 Total Visit Minutes 45 Visit Number 9 Number of AIR HOLE DRILLER Visits 0 PT-OP-B Current Condition Start: 12/12/17 16:15 Freq: Status: Active Protocol: Document 12/10/17 16:16 SAK (Rec: 12/12/17 16:44 SAK [id number]) Current Condition History of Current Condition Onset Date 3+ years Current Complaints dizziness, balance difficulty History of Current Condition Patient states his primary c/o is dizziness causing difficulty with balance and walking. States he has had dizziness for several years, has had medical work-up with cause of dizziness so far uncertain. Worst dizziness is after prolonged sitting, especially in his car; reports when he stands up from car feels dizzy and has difficulty walking. Currently is having cardiac monitoring for the month of December, started with new forensic social worker last month. Reports he has circulatory problems in his LE 's and will be consulting further with his physician; very limited in walking due to aching in legs. Has had a couple falls. PMH: arterial disease, arthritis, back pain, HTN, cancer, DM, quadrupal bypass, neck pain, SOB. Treatment Goals Patient/Caregiver Goals Decrease his dizziness, and improve his balance and walking. Prior Functional Status Baseline Function- ADL's Independent Baseline Function- Mobility Independent Baseline Function- Gait independent community ambulation Current Functional Impairments (Reported) Functional Limitations- ADL's Cautious Functional Limitations- Mobility/Gait Limited by dizziness, balance difficulty Functional Limitations- Work/School retired PT-OP-C Subjective Start: 12/12/17 16:15 Freq: Status: Active Protocol: Document 01/10/18 14:32 SAK (Rec: 01/10/18 14:42 SAK [id number]) OP-PT Subjective Patient Comments Patient Comments Reports tired and sore today, tried a few min on elliptical again, also did some walking. Can't bend over to pick something up up ground. PT-OP-D Balance Start: 12/12/17 16:15 Freq: Status: Active Protocol: Document 01/10/18 14:43 SAK (Rec: 01/10/18 15:12 [facility] [id number]) Balance Tests Single Limb Standing Single Limb- Right 5 Single Limb- Left 4 Semi-Tandem Standing Semi-Tandem Standing Balance 6 Tandem Tandem Standing 3 PT-OP-E Functional Tests Start: 12/12/17 16:15 Freq: Status: Active Protocol: Document 01/10/18 14:43 SAK (Rec: 01/10/18 15:12 SAK [id number]) Functional Tests Timed Up and Go (TUG) Score 11 TUG Impairment Rating 1 to <20% Impaired (Score 11) PT-OP-G Mobility & Gait Start: 12/12/17 16:15 Freq: Status: Active Protocol: Document 12/10/17 16:16 SAK (Rec: 12/12/17 16:58 SAK [id number]) OP Gait Assessment Gait Gait Assistance Required: Independent Distance (Feet) 100 Assistive Devices Assistive Device None Gait Deviations General Gait Pattern Decreased Stride Length Decreased Feet Clearance PT-OP-K Range of Motion Start: 12/12/17 16:15 Freq: Status: Active Protocol: Document 12/10/17 16:16 SAK (Rec: 12/12/17 16:44 [facility] [id number]) Cervical Spine Range of Motion Cervical Spine Active Comments WFL, denied dizziness Lumbar Spine Range of Motion Lumbar Spine Active Comments WFL, denied dizziness with movement Hip Goniometric Range of Motion Hip ROM Limitations Comments WFL ginna LE's except ER left 35 , right 25 PSLR 55 left, 50 right Knee Goniometric Range of Motion Knee ROM Limitations Comments WFL Ankle and Foot Goniometric Range of Motion Ankle and Foot ROM Limitations ROM Limitations Soft Tissue Tightness Comments limited to neutral dorsiflexion ginna PT-OP-M Strength Start: 12/12/17 16:15 Freq: Status: Active Protocol: Document 12/10/17 16:16 [facility] (Rec: 12/12/17 16:44 [facility] [id number]) Hip Strength Hip Manual Muscle Testing Right Flexion (L2) 4 Good Extension (S1) 3+ Fair+ Abduction 4- Good- External Rotation 3+ Fair+ Internal Rotation 4 Good Left Flexion (L2) 4 Good Extension (S1) 3+ Fair+ Abduction 4- Good- External Rotation 3+ Fair+ Internal Rotation 4 Good Knee Strength Knee Manual Muscle Testing Right Flexion (S2) 4+ Good+ Extension (L3) 4+ Good+ Left Flexion (S2) 4+ Good+ Extension (L3) 4+ Good+ Ankle/Foot Strength Ankle and Foot Manual Muscle Testing Right Dorsiflexion (L4) 4 Good Plantarflexion (S1) 4 Good Left Dorsiflexion (L4) 4- Good- Plantarflexion (S1) 4- Good- PT-OP-O Vestibular Start: 12/12/17 16:15 Freq: Status: Active Protocol: Document 12/17/17 09:45 DCW (Rec: 12/17/17 15:25 DCW [id number]) Vestibular Assessment Screening Tests Vestibular Artery Screen Negative Auditory Tests Carrasquillo Test Negative Rinne Test Negative Air Conduction Results Equal Visual Testing Smooth Pursuits Horizontal Negative Smooth Pursuits Vertical Negative Saccades Horizontal Negative Gaze Evoked Nystagmus With Fixation Negative Gaze Evoked Nystagmus Without Fixation Negative Heave Test Positive Bilateral Thrust Head Positive Bilateral DVA (Line Degradation) 0 Head Shake Negative Positional Testing Casi-Hallpike Negative Left Negative Right Rolling Test Negative Left Negative Right Vestibular Function Tests CTSIB Position 1 Mild Sway CTSIB Position 2 Severe Sway CTSIB Position 3 Fall Reaction CTSIB Position 4 Moderate Sway CTSIB Position 5 Fall Reaction CTSIB Position 6 Fall Reaction PT-OP-Q Treatments Start: 12/12/17 16:15 Freq: Status: Active Protocol: Document 01/10/18 14:32 SAK (Rec: 01/10/18 14:42 SAK [id number]) Cardio Equipment Recumbent Stepper (Sci-Fit) Duration (Minutes) 10 Resistance 2 Gym Equipment Shuttle Balance standing bal Details chains red, chains green Comments balance and weight-shifts chains red Head turns EO, throw/catch ball with rebounder; 4-square ball, red weighted ball (CG to min assist for bal) Therapeutic Exercises Standing Exercises quad stretch Reps/Minutes 2x Comments chair HS stretch Reps/Minutes 2 Comments stair 1 Standing Exercise Name HC stretch Equipment Used IVANA Neuro Re-Education Treatment Balance Activities hurdles Details forward, sideways Equipment 2# ankle weights Comments 2 steps in between hurdles forward, min UE support in parallel bars PT-OP-T Assessment and Plan Start: 12/12/17 16:15 Freq: Status: Active Protocol: Document 01/10/18 14:32 [facility] (Rec: 01/10/18 14:42 [facility] [id number]) Physical Therapy Assessment Goals Four Impairment weakness Custodial Goal (LTG) Patient LE strength to improve to at least 4+/5 all LE muscle groups LTG Duration 2 months Three Impairment balance Swing Type Lathe Operator Goal (LTG) Improve Sandhu Balance score to 52 to decrease fall risk Decrease Get up and Go time to 10 sec Improve Dynamic Gait Index by 5 points LTG Duration 2 months Two Impairment dizziness Swing Type Lathe Operator Goal (LTG) Patient to be evaluated and treated as indicated by vestibular PT (goal met, no further treatment) LTG Duration 2 months One Impairment gait Custodial Goal (LTG) Patient able to ambulate at home, yard, and in community for short distances without difficulty or reports of falls LTG Duration 2 months Assessment Summary Assessment Improvements noted in balance today. Physical Therapy Plan Frequency and Duration Frequency of Treatment 2x/Week Duration of Treatment 2 months Plan of Care Start Date 12/17/17 Plan of Care End Date 02/16/18 Therapeutic Interventions Therapeutic Interventions Balance Training Gait Training Home Exercise Program Patient/Caregiver Education Self-Care/Home Management Therapeutic Activities Therapeutic Exercises Vestibular Rehabilitation Next Visit Focus/Plan Next Note Type Progress Note Next Visit Plan reassess LE strength and flexibility
--- NOTE | 2018-01-14 16:14 | PT.OTN ---
Current Diagnoses Unspecified abnormalities of gait and mobility (01/14/18) Physical Therapy Treatment Note PT-OP-A Visit Information Start: 12/12/17 16:15 Freq: Status: Active Protocol: Document 01/14/18 14:36 [facility] (Rec: 01/14/18 15:19 [facility] [id number]) Out-Patient Physical Therapy Visit Information Visit Information Visit Type Treatment Note Visit Start Time 14:30 Visit Stop Time 15:15 Total Visit Minutes 45 Visit Number 10 Number of SPORTS TEAM MANAGER Visits 0 PT-OP-B Current Condition Start: 12/12/17 16:15 Freq: Status: Active Protocol: Document 12/10/17 16:16 SAK (Rec: 12/12/17 16:44 SAK [id number]) Current Condition History of Current Condition Onset Date 3+ years Current Complaints dizziness, balance difficulty History of Current Condition Patient states his primary c/o is dizziness causing difficulty with balance and walking. States he has had dizziness for several years, has had medical work-up with cause of dizziness so far uncertain. Worst dizziness is after prolonged sitting, especially in his car; reports when he stands up from car feels dizzy and has difficulty walking. Currently is having cardiac monitoring for the month of December, started with new surface grinding machine hand last month. Reports he has circulatory problems in his LE 's and will be consulting further with his physician; very limited in walking due to aching in legs. Has had a couple falls. PMH: arterial disease, arthritis, back pain, HTN, cancer, DM, quadrupal bypass, neck pain, SOB. Treatment Goals Patient/Caregiver Goals Decrease his dizziness, and improve his balance and walking. Prior Functional Status Baseline Function- ADL's Independent Baseline Function- Mobility Independent Baseline Function- Gait independent community ambulation Current Functional Impairments (Reported) Functional Limitations- ADL's Cautious Functional Limitations- Mobility/Gait Limited by dizziness, balance difficulty Functional Limitations- Work/School retired PT-OP-C Subjective Start: 12/12/17 16:15 Freq: Status: Active Protocol: Document 01/14/18 14:36 SAK (Rec: 01/14/18 15:19 [facility] [id number]) OP-PT Subjective Patient Comments Patient Comments No new c/o, was able to do 1 hr of yardwork; some backpain, a little stumbling, no falls. PT-OP-D Balance Start: 12/12/17 16:15 Freq: Status: Active Protocol: Document 01/10/18 14:43 SAK (Rec: 01/10/18 15:12 SAK [id number]) Balance Tests Single Limb Standing Single Limb- Right 5 Single Limb- Left 4 Semi-Tandem Standing Semi-Tandem Standing Balance 6 Tandem Tandem Standing 3 PT-OP-E Functional Tests Start: 12/12/17 16:15 Freq: Status: Active Protocol: Document 01/10/18 14:43 SAK (Rec: 01/10/18 15:12 SAK [id number]) Functional Tests Timed Up and Go (TUG) Score 11 TUG Impairment Rating 1 to <20% Impaired (Score 11) PT-OP-G Mobility & Gait Start: 12/12/17 16:15 Freq: Status: Active Protocol: Document 12/10/17 16:16 SAK (Rec: 12/12/17 16:58 SAK [id number]) OP Gait Assessment Gait Gait Assistance Required: Independent Distance (Feet) 100 Assistive Devices Assistive Device None Gait Deviations General Gait Pattern Decreased Stride Length Decreased Feet Clearance PT-OP-K Range of Motion Start: 12/12/17 16:15 Freq: Status: Active Protocol: Document 12/10/17 16:16 [facility] (Rec: 12/12/17 16:44 [facility] [id number]) Cervical Spine Range of Motion Cervical Spine Active Comments WFL, denied dizziness Lumbar Spine Range of Motion Lumbar Spine Active Comments WFL, denied dizziness with movement Hip Goniometric Range of Motion Hip ROM Limitations Comments WFL ginna LE's except ER left 35 , right 25 PSLR 55 left, 50 right Knee Goniometric Range of Motion Knee ROM Limitations Comments WFL Ankle and Foot Goniometric Range of Motion Ankle and Foot ROM Limitations ROM Limitations Soft Tissue Tightness Comments limited to neutral dorsiflexion ginna PT-OP-M Strength Start: 12/12/17 16:15 Freq: Status: Active Protocol: Document 12/10/17 16:16 [facility] (Rec: 12/12/17 16:44 [facility] [id number]) Hip Strength Hip Manual Muscle Testing Right Flexion (L2) 4 Good Extension (S1) 3+ Fair+ Abduction 4- Good- External Rotation 3+ Fair+ Internal Rotation 4 Good Left Flexion (L2) 4 Good Extension (S1) 3+ Fair+ Abduction 4- Good- External Rotation 3+ Fair+ Internal Rotation 4 Good Knee Strength Knee Manual Muscle Testing Right Flexion (S2) 4+ Good+ Extension (L3) 4+ Good+ Left Flexion (S2) 4+ Good+ Extension (L3) 4+ Good+ Ankle/Foot Strength Ankle and Foot Manual Muscle Testing Right Dorsiflexion (L4) 4 Good Plantarflexion (S1) 4 Good Left Dorsiflexion (L4) 4- Good- Plantarflexion (S1) 4- Good- PT-OP-O Vestibular Start: 12/12/17 16:15 Freq: Status: Active Protocol: Document 12/17/17 09:45 DCW (Rec: 12/17/17 15:25 DCW [id number]) Vestibular Assessment Screening Tests Vestibular Artery Screen Negative Auditory Tests Carrasquillo Test Negative Rinne Test Negative Air Conduction Results Equal Visual Testing Smooth Pursuits Horizontal Negative Smooth Pursuits Vertical Negative Saccades Horizontal Negative Gaze Evoked Nystagmus With Fixation Negative Gaze Evoked Nystagmus Without Fixation Negative Heave Test Positive Bilateral Thrust Head Positive Bilateral DVA (Line Degradation) 0 Head Shake Negative Positional Testing Casi-Hallpike Negative Left Negative Right Rolling Test Negative Left Negative Right Vestibular Function Tests CTSIB Position 1 Mild Sway CTSIB Position 2 Severe Sway CTSIB Position 3 Fall Reaction CTSIB Position 4 Moderate Sway CTSIB Position 5 Fall Reaction CTSIB Position 6 Fall Reaction PT-OP-Q Treatments Start: 12/12/17 16:15 Freq: Status: Active Protocol: Document 01/14/18 14:36 [facility] (Rec: 01/14/18 15:19 [facility] [id number]) Cardio Equipment Elliptical Duration (Minutes) 2 Resistance 1 Recumbent Elliptical (Biodex) Duration (Minutes) 10 Resistance 3 Gym Equipment Shuttle Recovery Unilateral Squats Resistance 50 Reps/Time 10x2 Bilateral Squats Resistance 62 Reps/Time 10x2 Sport Cord fwd,bck,side Cord/Resistance green Reps/Duration 8 min Therapeutic Exercises Sitting Exercises hip ab, hip ad Resistance 50 Reps/Minutes 10x ea Standing Exercises HS stretch Reps/Minutes 2 Comments stair Neuro Re-Education Treatment Balance Activities 2 Details tandem stand 1 Details SLS Reps/Duration 2 min PT-OP-T Assessment and Plan Start: 12/12/17 16:15 Freq: Status: Active Protocol: Document 01/14/18 16:11 [facility] (Rec: 01/14/18 16:14 SAK [id number]) Physical Therapy Assessment Goals Four Impairment weakness Skilled Nursing Goal (LTG) Patient LE strength to improve to at least 4+/5 all LE muscle groups (goal progress) LTG Duration 2 months Three Impairment balance Skilled Nursing Goal (LTG) Improve Sandhu Balance score to 52 to decrease fall risk Decrease Get up and Go time to 10 sec Improve Dynamic Gait Index by 5 points (goal progress) LTG Duration 2 months Two Impairment dizziness Skilled Nursing Goal (LTG) Patient to be evaluated and treated as indicated by vestibular PT (goal met, no further treatment) LTG Duration 2 months One Impairment gait Garbage Truck Helper Goal (LTG) Patient able to ambulate at home, yard, and in community for short distances without difficulty or reports of falls (goal progress) Assessment Summary Assessment Improving strength and balance . Patient planning to go sign up at fitness center soon. Occasional stumbles, especially when fatigued. Would benefit from further PT for strengthening, balance, gait training, education in HEP and ex program to be done at fitness center. Physical Therapy Plan Frequency and Duration Frequency of Treatment 2x/Week Duration of Treatment 2 months Plan of Care Start Date 12/17/17 Plan of Care End Date 02/16/18 Therapeutic Interventions Therapeutic Interventions Balance Training Gait Training Home Exercise Program Patient/Caregiver Education Self-Care/Home Management Therapeutic Activities Therapeutic Exercises Vestibular Rehabilitation Next Visit Focus/Plan Next Note Type Treatment Note Next Visit Plan Continue PT for gait training, balance, strengthening, patient education.
--- NOTE | 2018-01-17 15:14 | PT.OTN ---
Current Diagnoses Unspecified abnormalities of gait and mobility (01/17/18) Physical Therapy Treatment Note PT-OP-A Visit Information Start: 12/12/17 16:15 Freq: Status: Active Protocol: Document 01/17/18 14:33 SAK (Rec: 01/17/18 15:13 SAK [id number]) Out-Patient Physical Therapy Visit Information Visit Information Visit Type Treatment Note Visit Start Time 14:30 Visit Stop Time 15:15 Total Visit Minutes 45 Visit Number 11 Number of PHOTO MASK INSPECTOR Visits 0 PT-OP-B Current Condition Start: 12/12/17 16:15 Freq: Status: Active Protocol: Document 12/10/17 16:16 SAK (Rec: 12/12/17 16:44 SAK [id number]) Current Condition History of Current Condition Onset Date 3+ years Current Complaints dizziness, balance difficulty History of Current Condition Patient states his primary c/o is dizziness causing difficulty with balance and walking. States he has had dizziness for several years, has had medical work-up with cause of dizziness so far uncertain. Worst dizziness is after prolonged sitting, especially in his car; reports when he stands up from car feels dizzy and has difficulty walking. Currently is having cardiac monitoring for the month of December, started with new breastfeeding program coordinator last month. Reports he has circulatory problems in his LE 's and will be consulting further with his physician; very limited in walking due to aching in legs. Has had a couple falls. PMH: arterial disease, arthritis, back pain, HTN, cancer, DM, quadrupal bypass, neck pain, SOB. Treatment Goals Patient/Caregiver Goals Decrease his dizziness, and improve his balance and walking. Prior Functional Status Baseline Function- ADL's Independent Baseline Function- Mobility Independent Baseline Function- Gait independent community ambulation Current Functional Impairments (Reported) Functional Limitations- ADL's Cautious Functional Limitations- Mobility/Gait Limited by dizziness, balance difficulty Functional Limitations- Work/School retired PT-OP-C Subjective Start: 12/12/17 16:15 Freq: Status: Active Protocol: Document 01/17/18 14:33 SAK (Rec: 01/17/18 15:13 SAK [id number]) OP-PT Subjective Patient Comments Patient Comments Saw a breastfeeding program coordinator, going to be put on a blood thinner; hasn't started yet. Diagnosed with small artery disease. PT-OP-D Balance Start: 12/12/17 16:15 Freq: Status: Active Protocol: Document 01/10/18 14:43 SAK (Rec: 01/10/18 15:12 SAK [id number]) Balance Tests Single Limb Standing Single Limb- Right 5 Single Limb- Left 4 Semi-Tandem Standing Semi-Tandem Standing Balance 6 Tandem Tandem Standing 3 PT-OP-E Functional Tests Start: 12/12/17 16:15 Freq: Status: Active Protocol: Document 01/10/18 14:43 SAK (Rec: 01/10/18 15:12 SAK [id number]) Functional Tests Timed Up and Go (TUG) Score 11 TUG Impairment Rating 1 to <20% Impaired (Score 11) PT-OP-G Mobility & Gait Start: 12/12/17 16:15 Freq: Status: Active Protocol: Document 12/10/17 16:16 SAK (Rec: 12/12/17 16:58 SAK [id number]) OP Gait Assessment Gait Gait Assistance Required: Independent Distance (Feet) 100 Assistive Devices Assistive Device None Gait Deviations General Gait Pattern Decreased Stride Length Decreased Feet Clearance PT-OP-K Range of Motion Start: 12/12/17 16:15 Freq: Status: Active Protocol: Document 12/10/17 16:16 SAK (Rec: 12/12/17 16:44 [facility] [id number]) Cervical Spine Range of Motion Cervical Spine Active Comments WFL, denied dizziness Lumbar Spine Range of Motion Lumbar Spine Active Comments WFL, denied dizziness with movement Hip Goniometric Range of Motion Hip ROM Limitations Comments WFL ginna LE's except ER left 35 , right 25 PSLR 55 left, 50 right Knee Goniometric Range of Motion Knee ROM Limitations Comments WFL Ankle and Foot Goniometric Range of Motion Ankle and Foot ROM Limitations ROM Limitations Soft Tissue Tightness Comments limited to neutral dorsiflexion ginna PT-OP-M Strength Start: 12/12/17 16:15 Freq: Status: Active Protocol: Document 12/10/17 16:16 SAK (Rec: 12/12/17 16:44 SAK [id number]) Hip Strength Hip Manual Muscle Testing Right Flexion (L2) 4 Good Extension (S1) 3+ Fair+ Abduction 4- Good- External Rotation 3+ Fair+ Internal Rotation 4 Good Left Flexion (L2) 4 Good Extension (S1) 3+ Fair+ Abduction 4- Good- External Rotation 3+ Fair+ Internal Rotation 4 Good Knee Strength Knee Manual Muscle Testing Right Flexion (S2) 4+ Good+ Extension (L3) 4+ Good+ Left Flexion (S2) 4+ Good+ Extension (L3) 4+ Good+ Ankle/Foot Strength Ankle and Foot Manual Muscle Testing Right Dorsiflexion (L4) 4 Good Plantarflexion (S1) 4 Good Left Dorsiflexion (L4) 4- Good- Plantarflexion (S1) 4- Good- PT-OP-O Vestibular Start: 12/12/17 16:15 Freq: Status: Active Protocol: Document 12/17/17 09:45 DCW (Rec: 12/17/17 15:25 DCW [id number]) Vestibular Assessment Screening Tests Vestibular Artery Screen Negative Auditory Tests Carrasquillo Test Negative Rinne Test Negative Air Conduction Results Equal Visual Testing Smooth Pursuits Horizontal Negative Smooth Pursuits Vertical Negative Saccades Horizontal Negative Gaze Evoked Nystagmus With Fixation Negative Gaze Evoked Nystagmus Without Fixation Negative Heave Test Positive Bilateral Thrust Head Positive Bilateral DVA (Line Degradation) 0 Head Shake Negative Positional Testing Sayre-Hallpike Negative Left Negative Right Rolling Test Negative Left Negative Right Vestibular Function Tests CTSIB Position 1 Mild Sway CTSIB Position 2 Severe Sway CTSIB Position 3 Fall Reaction CTSIB Position 4 Moderate Sway CTSIB Position 5 Fall Reaction CTSIB Position 6 Fall Reaction PT-OP-Q Treatments Start: 12/12/17 16:15 Freq: Status: Active Protocol: Document 01/17/18 14:33 SAK (Rec: 01/17/18 15:13 SAK [id number]) Cardio Equipment Elliptical Duration (Minutes) 2 Resistance 1 Recumbent Stepper (Sci-Fit) Duration (Minutes) 10 Resistance 3 Gym Equipment Sport Cord fwd,bck,side Cord/Resistance red Reps/Duration 8 min Therapeutic Exercises Sitting Exercises HS stretch Equipment Used Belt Reps/Minutes 2x Standing Exercises stair lunge for hip flexor stretch Reps/Minutes 2x 1 Standing Exercise Name HC stretch Equipment Used IVANA Neuro Re-Education Treatment Balance Activities golf swing Equipment blue foam lunges Details forward Comments BOSU lunge 1 Details SLS Reps/Duration 2 min Self-Care/Home Management Treatment Education Patient Education Home Exercise Program PT-OP-T Assessment and Plan Start: 12/12/17 16:15 Freq: Status: Active Protocol: Document 01/17/18 14:33 SAK (Rec: 01/17/18 15:13 SAK [id number]) Physical Therapy Assessment Goals Four Impairment weakness Longterm Goal (LTG) Patient LE strength to improve to at least 4+/5 all LE muscle groups (goal progress) LTG Duration 2 months Three Impairment balance Solid Tire Finisher Goal (LTG) Improve Sandhu Balance score to 52 to decrease fall risk Decrease Get up and Go time to 10 sec Improve Dynamic Gait Index by 5 points (goal progress) LTG Duration 2 months Two Impairment dizziness Longterm Goal (LTG) Patient to be evaluated and treated as indicated by vestibular PT (goal met, no further treatment) LTG Duration 2 months One Impairment gait Longterm Goal (LTG) Patient able to ambulate at home, yard, and in community for short distances without difficulty or reports of falls (goal progress) Assessment Summary Assessment Worked on balance with golf swing due to patient c/o losing balance forward yesterday with that activity. Physical Therapy Plan Frequency and Duration Frequency of Treatment 2x/Week Duration of Treatment 2 months Plan of Care Start Date 12/17/17 Plan of Care End Date 02/16/18 Therapeutic Interventions Therapeutic Interventions Balance Training Gait Training Home Exercise Program Patient/Caregiver Education Self-Care/Home Management Therapeutic Activities Therapeutic Exercises Vestibular Rehabilitation Next Visit Focus/Plan Next Note Type Treatment Note Next Visit Plan Continue PT for gait training, balance, strengthening, patient education.
--- NOTE | 2018-01-20 17:28 | PT.OTN ---
Current Diagnoses Unspecified abnormalities of gait and mobility (01/20/18) Physical Therapy Treatment Note PT-OP-A Visit Information Start: 12/12/17 16:15 Freq: Status: Active Protocol: Document 01/20/18 17:15 EA (Rec: 01/20/18 17:21 EA [id number]) Out-Patient Physical Therapy Visit Information Visit Information Visit Type Treatment Note Visit Start Time 16:00 Visit Stop Time 16:45 Total Visit Minutes 45 Visit Number 12 Number of MULTIPLE DRUM SANDER Visits 0 PT-OP-B Current Condition Start: 12/12/17 16:15 Freq: Status: Active Protocol: Document 12/10/17 16:16 SAK (Rec: 12/12/17 16:44 SAK [id number]) Current Condition History of Current Condition Onset Date 3+ years Current Complaints dizziness, balance difficulty History of Current Condition Patient states his primary c/o is dizziness causing difficulty with balance and walking. States he has had dizziness for several years, has had medical work-up with cause of dizziness so far uncertain. Worst dizziness is after prolonged sitting, especially in his car; reports when he stands up from car feels dizzy and has difficulty walking. Currently is having cardiac monitoring for the month of December, started with new cardroom drawing runner last month. Reports he has circulatory problems in his LE 's and will be consulting further with his physician; very limited in walking due to aching in legs. Has had a couple falls. PMH: arterial disease, arthritis, back pain, HTN, cancer, DM, quadrupal bypass, neck pain, SOB. Treatment Goals Patient/Caregiver Goals Decrease his dizziness, and improve his balance and walking. Prior Functional Status Baseline Function- ADL's Independent Baseline Function- Mobility Independent Baseline Function- Gait independent community ambulation Current Functional Impairments (Reported) Functional Limitations- ADL's Cautious Functional Limitations- Mobility/Gait Limited by dizziness, balance difficulty Functional Limitations- Work/School retired PT-OP-C Subjective Start: 12/12/17 16:15 Freq: Status: Active Protocol: Document 01/20/18 17:15 EA (Rec: 01/20/18 17:21 EA [id number]) OP-PT Subjective Patient Comments Patient Comments Pt reports much feeling better today and dizziness still occurs upon getting up in the car during long drive; states was supposed to have angioplasty to LE's but doctors decided not to perform due to small amount. Patient reports that he is in blood tinner at this time. PT-OP-D Balance Start: 12/12/17 16:15 Freq: Status: Active Protocol: Document 01/10/18 14:43 [facility] (Rec: 01/10/18 15:12 [facility] [id number]) Balance Tests Single Limb Standing Single Limb- Right 5 Single Limb- Left 4 Semi-Tandem Standing Semi-Tandem Standing Balance 6 Tandem Tandem Standing 3 PT-OP-E Functional Tests Start: 12/12/17 16:15 Freq: Status: Active Protocol: Document 01/10/18 14:43 SAK (Rec: 01/10/18 15:12 SAK [id number]) Functional Tests Timed Up and Go (TUG) Score 11 TUG Impairment Rating 1 to <20% Impaired (Score 11) PT-OP-G Mobility & Gait Start: 12/12/17 16:15 Freq: Status: Active Protocol: Document 12/10/17 16:16 [facility] (Rec: 12/12/17 16:58 [facility] [id number]) OP Gait Assessment Gait Gait Assistance Required: Independent Distance (Feet) 100 Assistive Devices Assistive Device None Gait Deviations General Gait Pattern Decreased Stride Length Decreased Feet Clearance PT-OP-K Range of Motion Start: 12/12/17 16:15 Freq: Status: Active Protocol: Document 12/10/17 16:16 [facility] (Rec: 12/12/17 16:44 [facility] [id number]) Cervical Spine Range of Motion Cervical Spine Active Comments WFL, denied dizziness Lumbar Spine Range of Motion Lumbar Spine Active Comments WFL, denied dizziness with movement Hip Goniometric Range of Motion Hip ROM Limitations Comments WFL ginna LE's except ER left 35 , right 25 PSLR 55 left, 50 right Knee Goniometric Range of Motion Knee ROM Limitations Comments WFL Ankle and Foot Goniometric Range of Motion Ankle and Foot ROM Limitations ROM Limitations Soft Tissue Tightness Comments limited to neutral dorsiflexion ginna PT-OP-M Strength Start: 12/12/17 16:15 Freq: Status: Active Protocol: Document 12/10/17 16:16 [facility] (Rec: 12/12/17 16:44 [facility] [id number]) Hip Strength Hip Manual Muscle Testing Right Flexion (L2) 4 Good Extension (S1) 3+ Fair+ Abduction 4- Good- External Rotation 3+ Fair+ Internal Rotation 4 Good Left Flexion (L2) 4 Good Extension (S1) 3+ Fair+ Abduction 4- Good- External Rotation 3+ Fair+ Internal Rotation 4 Good Knee Strength Knee Manual Muscle Testing Right Flexion (S2) 4+ Good+ Extension (L3) 4+ Good+ Left Flexion (S2) 4+ Good+ Extension (L3) 4+ Good+ Ankle/Foot Strength Ankle and Foot Manual Muscle Testing Right Dorsiflexion (L4) 4 Good Plantarflexion (S1) 4 Good Left Dorsiflexion (L4) 4- Good- Plantarflexion (S1) 4- Good- PT-OP-O Vestibular Start: 12/12/17 16:15 Freq: Status: Active Protocol: Document 12/17/17 09:45 DCW (Rec: 12/17/17 15:25 DCW [id number]) Vestibular Assessment Screening Tests Vestibular Artery Screen Negative Auditory Tests Carrasquillo Test Negative Rinne Test Negative Air Conduction Results Equal Visual Testing Smooth Pursuits Horizontal Negative Smooth Pursuits Vertical Negative Saccades Horizontal Negative Gaze Evoked Nystagmus With Fixation Negative Gaze Evoked Nystagmus Without Fixation Negative Heave Test Positive Bilateral Thrust Head Positive Bilateral DVA (Line Degradation) 0 Head Shake Negative Positional Testing Casi-Hallpike Negative Left Negative Right Rolling Test Negative Left Negative Right Vestibular Function Tests CTSIB Position 1 Mild Sway CTSIB Position 2 Severe Sway CTSIB Position 3 Fall Reaction CTSIB Position 4 Moderate Sway CTSIB Position 5 Fall Reaction CTSIB Position 6 Fall Reaction PT-OP-Q Treatments Start: 12/12/17 16:15 Freq: Status: Active Protocol: Document 01/20/18 17:21 EA (Rec: 01/20/18 17:26 EA [id number]) Cardio Equipment Recumbent Stepper (Sci-Fit) Duration (Minutes) 10 Resistance 3 Gym Equipment Cable Column (Body Solid) Leg Extension Details 30# Reps/Time x 15 reps Shuttle Recovery Unilateral Squats Resistance 50 Reps/Time 10x2 Bilateral Squats Resistance 62 Reps/Time 10x2 Shuttle Balance standing bal Details chains red, chains green Comments balance and weight-shifts chains red Head turns EO, throw/catch ball with rebounder; 4-square ball, red weighted ball (CG to min assist for bal) Sport Cord fwd,bck,side Cord/Resistance red Reps/Duration 8 min Therapeutic Exercises Sitting Exercises HS stretch Equipment Used Belt Reps/Minutes 2x Standing Exercises HS stretch Standing Exercise Name wall squats: 35 deg Reps/Minutes x 5SH x 5 reps 1 Standing Exercise Name HC stretch Equipment Used IVANA Neuro Re-Education Treatment Balance Activities 2 Details tandem stand 1 Details SLS Reps/Duration 2 min hurdles Details forward, sideways Equipment 2# ankle weights Comments 2 steps in between hurdles forward, min UE support in parallel bars PT-OP-T Assessment and Plan Start: 12/12/17 16:15 Freq: Status: Active Protocol: Document 01/20/18 17:21 EA (Rec: 01/20/18 17:26 EA [id number]) Physical Therapy Assessment Assessment Summary Assessment Pt tolerated treatment well. No noted any signs of instability; however c/o of both knee pain during wall squatting. Physical Therapy Plan Next Visit Focus/Plan Next Note Type Treatment Note Next Visit Plan Continue PT for gait training, balance, strengthening, patient education.
--- NOTE | 2018-01-28 13:43 | PT.OTN ---
Current Diagnoses Unspecified abnormalities of gait and mobility (01/28/18) Physical Therapy Treatment Note PT-OP-A Visit Information Start: 12/12/17 16:15 Freq: Status: Active Protocol: Document 01/28/18 12:00 DCW (Rec: 01/28/18 13:43 DCW [id number]) Out-Patient Physical Therapy Visit Information Visit Information Visit Type Treatment Note Visit Start Time 12:00 Visit Stop Time 12:45 Total Visit Minutes 45 Visit Number 13 Number of ASTRONOMY PROFESSOR Visits 0 PT-OP-B Current Condition Start: 12/12/17 16:15 Freq: Status: Active Protocol: Document 12/10/17 16:16 SAK (Rec: 12/12/17 16:44 SAK [id number]) Current Condition History of Current Condition Onset Date 3+ years Current Complaints dizziness, balance difficulty History of Current Condition Patient states his primary c/o is dizziness causing difficulty with balance and walking. States he has had dizziness for several years, has had medical work-up with cause of dizziness so far uncertain. Worst dizziness is after prolonged sitting, especially in his car; reports when he stands up from car feels dizzy and has difficulty walking. Currently is having cardiac monitoring for the month of December, started with new legal financial specialist last month. Reports he has circulatory problems in his LE 's and will be consulting further with his physician; very limited in walking due to aching in legs. Has had a couple falls. PMH: arterial disease, arthritis, back pain, HTN, cancer, DM, quadrupal bypass, neck pain, SOB. Treatment Goals Patient/Caregiver Goals Decrease his dizziness, and improve his balance and walking. Prior Functional Status Baseline Function- ADL's Independent Baseline Function- Mobility Independent Baseline Function- Gait independent community ambulation Current Functional Impairments (Reported) Functional Limitations- ADL's Cautious Functional Limitations- Mobility/Gait Limited by dizziness, balance difficulty Functional Limitations- Work/School retired PT-OP-C Subjective Start: 12/12/17 16:15 Freq: Status: Active Protocol: Document 01/28/18 12:00 DCW (Rec: 01/28/18 13:43 DCW [id number]) OP-PT Subjective Patient Comments Patient Comments Pt admits that he fell twice last week, once when he was wearing socks on a slippery floor, and a second time when he tried to reach down to the floor to pick something up, and tumbled forward onto his carpet. Notes that his back hurt after his first fall, but feels better after a chiropractic appointment tomorrow. PT-OP-D Balance Start: 12/12/17 16:15 Freq: Status: Active Protocol: Document 01/10/18 14:43 SAK (Rec: 01/10/18 15:12 SAK [id number]) Balance Tests Single Limb Standing Single Limb- Right 5 Single Limb- Left 4 Semi-Tandem Standing Semi-Tandem Standing Balance 6 Tandem Tandem Standing 3 PT-OP-E Functional Tests Start: 12/12/17 16:15 Freq: Status: Active Protocol: Document 01/10/18 14:43 SAK (Rec: 01/10/18 15:12 SAK [id number]) Functional Tests Timed Up and Go (TUG) Score 11 TUG Impairment Rating 1 to <20% Impaired (Score 11) PT-OP-G Mobility & Gait Start: 12/12/17 16:15 Freq: Status: Active Protocol: Document 12/10/17 16:16 [facility] (Rec: 12/12/17 16:58 [facility] [id number]) OP Gait Assessment Gait Gait Assistance Required: Independent Distance (Feet) 100 Assistive Devices Assistive Device None Gait Deviations General Gait Pattern Decreased Stride Length Decreased Feet Clearance PT-OP-K Range of Motion Start: 12/12/17 16:15 Freq: Status: Active Protocol: Document 12/10/17 16:16 SAK (Rec: 12/12/17 16:44 [facility] [id number]) Cervical Spine Range of Motion Cervical Spine Active Comments WFL, denied dizziness Lumbar Spine Range of Motion Lumbar Spine Active Comments WFL, denied dizziness with movement Hip Goniometric Range of Motion Hip ROM Limitations Comments WFL ginna LE's except ER left 35 , right 25 PSLR 55 left, 50 right Knee Goniometric Range of Motion Knee ROM Limitations Comments WFL Ankle and Foot Goniometric Range of Motion Ankle and Foot ROM Limitations ROM Limitations Soft Tissue Tightness Comments limited to neutral dorsiflexion ginna PT-OP-M Strength Start: 12/12/17 16:15 Freq: Status: Active Protocol: Document 12/10/17 16:16 SAK (Rec: 12/12/17 16:44 [facility] [id number]) Hip Strength Hip Manual Muscle Testing Right Flexion (L2) 4 Good Extension (S1) 3+ Fair+ Abduction 4- Good- External Rotation 3+ Fair+ Internal Rotation 4 Good Left Flexion (L2) 4 Good Extension (S1) 3+ Fair+ Abduction 4- Good- External Rotation 3+ Fair+ Internal Rotation 4 Good Knee Strength Knee Manual Muscle Testing Right Flexion (S2) 4+ Good+ Extension (L3) 4+ Good+ Left Flexion (S2) 4+ Good+ Extension (L3) 4+ Good+ Ankle/Foot Strength Ankle and Foot Manual Muscle Testing Right Dorsiflexion (L4) 4 Good Plantarflexion (S1) 4 Good Left Dorsiflexion (L4) 4- Good- Plantarflexion (S1) 4- Good- PT-OP-O Vestibular Start: 12/12/17 16:15 Freq: Status: Active Protocol: Document 12/17/17 09:45 DCW (Rec: 12/17/17 15:25 DCW [id number]) Vestibular Assessment Screening Tests Vestibular Artery Screen Negative Auditory Tests Carrasquillo Test Negative Rinne Test Negative Air Conduction Results Equal Visual Testing Smooth Pursuits Horizontal Negative Smooth Pursuits Vertical Negative Saccades Horizontal Negative Gaze Evoked Nystagmus With Fixation Negative Gaze Evoked Nystagmus Without Fixation Negative Heave Test Positive Bilateral Thrust Head Positive Bilateral DVA (Line Degradation) 0 Head Shake Negative Positional Testing Casi-Hallpike Negative Left Negative Right Rolling Test Negative Left Negative Right Vestibular Function Tests CTSIB Position 1 Mild Sway CTSIB Position 2 Severe Sway CTSIB Position 3 Fall Reaction CTSIB Position 4 Moderate Sway CTSIB Position 5 Fall Reaction CTSIB Position 6 Fall Reaction PT-OP-Q Treatments Start: 12/12/17 16:15 Freq: Status: Active Protocol: Document 01/28/18 12:00 DCW (Rec: 01/28/18 13:43 DCW [id number]) Cardio Equipment Recumbent Stepper (Sci-Fit) Duration (Minutes) 8 Resistance 3 Gym Equipment Shuttle Recovery Unilateral Squats Resistance 50# Reps/Time 10x2 Bilateral Squats Resistance 87# Reps/Time 10x2 Shuttle Balance standing bal Details chains red, chains green Comments balance and weight-shifts chains red Head turns EO(CG to min assist for bal) Therapeutic Exercises Other Exercises Resisted Forward/Backward stepping Other Exercise Name Resisted Forward/Backward stepping Resistance Green Equipment Used T-band Resisted Side-stepping Other Exercise Name Resisted Side-stepping Resistance Green Equipment Used T-band Neuro Re-Education Treatment Balance Activities Picking up balls Details Picking up balls from cones 1 Details SLS Reps/Duration 2 min PT-OP-T Assessment and Plan Start: 12/12/17 16:15 Freq: Status: Active Protocol: Document 01/28/18 12:00 DCW (Rec: 01/28/18 13:43 DCW [id number]) Physical Therapy Assessment Goals Four Impairment weakness Guidance Counselor Goal (LTG) Patient LE strength to improve to at least 4+/5 all LE muscle groups (goal progress) LTG Duration 2 months Three Impairment balance Residential Goal (LTG) Improve Sandhu Balance score to 52 to decrease fall risk Decrease Get up and Go time to 10 sec Improve Dynamic Gait Index by 5 points (goal progress) LTG Duration 2 months Two Impairment dizziness Guidance Counselor Goal (LTG) Patient to be evaluated and treated as indicated by vestibular PT (goal met, no further treatment) LTG Duration 2 months One Impairment gait Residential Goal (LTG) Patient able to ambulate at home, yard, and in community for short distances without difficulty or reports of falls (goal progress) Assessment Summary Assessment Pt did well bending down to picker packer balls, despite this activity causing a fall last week at home. Physical Therapy Plan Frequency and Duration Frequency of Treatment 2x/Week Duration of Treatment 2 months Plan of Care Start Date 12/17/17 Plan of Care End Date 02/16/18 Therapeutic Interventions Therapeutic Interventions Balance Training Gait Training Home Exercise Program Patient/Caregiver Education Self-Care/Home Management Therapeutic Activities Therapeutic Exercises Vestibular Rehabilitation Next Visit Focus/Plan Next Note Type Treatment Note Next Visit Plan Continue PT for gait training, balance, strengthening, patient education.
--- NOTE | 2018-01-30 14:37 | PT.OTN ---
Current Diagnoses Unspecified abnormalities of gait and mobility (01/30/18) Physical Therapy Treatment Note PT-OP-A Visit Information Start: 12/12/17 16:15 Freq: Status: Active Protocol: Document 01/30/18 13:58 SAK (Rec: 01/30/18 14:37 [facility] [id number]) Out-Patient Physical Therapy Visit Information Visit Information Visit Type Treatment Note Visit Start Time 13:45 Visit Stop Time 14:30 Total Visit Minutes 45 Visit Number 14 Number of SETTER JUICE PACKAGING MACHINES Visits 0 Evaluation Information Evaluation Date 12/10/17 PT-OP-B Current Condition Start: 12/12/17 16:15 Freq: Status: Active Protocol: Document 12/10/17 16:16 SAK (Rec: 12/12/17 16:44 SAK [id number]) Current Condition History of Current Condition Onset Date 3+ years Current Complaints dizziness, balance difficulty History of Current Condition Patient states his primary c/o is dizziness causing difficulty with balance and walking. States he has had dizziness for several years, has had medical work-up with cause of dizziness so far uncertain. Worst dizziness is after prolonged sitting, especially in his car; reports when he stands up from car feels dizzy and has difficulty walking. Currently is having cardiac monitoring for the month of December, started with new retail client manager last month. Reports he has circulatory problems in his LE 's and will be consulting further with his physician; very limited in walking due to aching in legs. Has had a couple falls. PMH: arterial disease, arthritis, back pain, HTN, cancer, DM, quadrupal bypass, neck pain, SOB. Treatment Goals Patient/Caregiver Goals Decrease his dizziness, and improve his balance and walking. Prior Functional Status Baseline Function- ADL's Independent Baseline Function- Mobility Independent Baseline Function- Gait independent community ambulation Current Functional Impairments (Reported) Functional Limitations- ADL's Cautious Functional Limitations- Mobility/Gait Limited by dizziness, balance difficulty Functional Limitations- Work/School retired PT-OP-C Subjective Start: 12/12/17 16:15 Freq: Status: Active Protocol: Document 01/30/18 13:58 SAK (Rec: 01/30/18 14:37 SAK [id number]) OP-PT Subjective Patient Comments Patient Comments Discussed falls from last week , no longer sore in forehead, but some persistent soreness in back; has been to chiropracter several times and goes again tomorrow. PT-OP-D Balance Start: 12/12/17 16:15 Freq: Status: Active Protocol: Document 01/10/18 14:43 [facility] (Rec: 01/10/18 15:12 [facility] [id number]) Balance Tests Single Limb Standing Single Limb- Right 5 Single Limb- Left 4 Semi-Tandem Standing Semi-Tandem Standing Balance 6 Tandem Tandem Standing 3 PT-OP-E Functional Tests Start: 12/12/17 16:15 Freq: Status: Active Protocol: Document 01/10/18 14:43 SAK (Rec: 01/10/18 15:12 [facility] [id number]) Functional Tests Timed Up and Go (TUG) Score 11 TUG Impairment Rating 1 to <20% Impaired (Score 11) PT-OP-G Mobility & Gait Start: 12/12/17 16:15 Freq: Status: Active Protocol: Document 12/10/17 16:16 [facility] (Rec: 12/12/17 16:58 [facility] [id number]) OP Gait Assessment Gait Gait Assistance Required: Independent Distance (Feet) 100 Assistive Devices Assistive Device None Gait Deviations General Gait Pattern Decreased Stride Length Decreased Feet Clearance PT-OP-K Range of Motion Start: 12/12/17 16:15 Freq: Status: Active Protocol: Document 12/10/17 16:16 [facility] (Rec: 12/12/17 16:44 [facility] [id number]) Cervical Spine Range of Motion Cervical Spine Active Comments WFL, denied dizziness Lumbar Spine Range of Motion Lumbar Spine Active Comments WFL, denied dizziness with movement Hip Goniometric Range of Motion Hip ROM Limitations Comments WFL ginna LE's except ER left 35 , right 25 PSLR 55 left, 50 right Knee Goniometric Range of Motion Knee ROM Limitations Comments WFL Ankle and Foot Goniometric Range of Motion Ankle and Foot ROM Limitations ROM Limitations Soft Tissue Tightness Comments limited to neutral dorsiflexion ginna PT-OP-M Strength Start: 12/12/17 16:15 Freq: Status: Active Protocol: Document 12/10/17 16:16 [facility] (Rec: 12/12/17 16:44 [facility] [id number]) Hip Strength Hip Manual Muscle Testing Right Flexion (L2) 4 Good Extension (S1) 3+ Fair+ Abduction 4- Good- External Rotation 3+ Fair+ Internal Rotation 4 Good Left Flexion (L2) 4 Good Extension (S1) 3+ Fair+ Abduction 4- Good- External Rotation 3+ Fair+ Internal Rotation 4 Good Knee Strength Knee Manual Muscle Testing Right Flexion (S2) 4+ Good+ Extension (L3) 4+ Good+ Left Flexion (S2) 4+ Good+ Extension (L3) 4+ Good+ Ankle/Foot Strength Ankle and Foot Manual Muscle Testing Right Dorsiflexion (L4) 4 Good Plantarflexion (S1) 4 Good Left Dorsiflexion (L4) 4- Good- Plantarflexion (S1) 4- Good- PT-OP-O Vestibular Start: 12/12/17 16:15 Freq: Status: Active Protocol: Document 12/17/17 09:45 DCW (Rec: 12/17/17 15:25 DCW [id number]) Vestibular Assessment Screening Tests Vestibular Artery Screen Negative Auditory Tests Carrasquillo Test Negative Rinne Test Negative Air Conduction Results Equal Visual Testing Smooth Pursuits Horizontal Negative Smooth Pursuits Vertical Negative Saccades Horizontal Negative Gaze Evoked Nystagmus With Fixation Negative Gaze Evoked Nystagmus Without Fixation Negative Heave Test Positive Bilateral Thrust Head Positive Bilateral DVA (Line Degradation) 0 Head Shake Negative Positional Testing [place]-Hallpike Negative Left Negative Right Rolling Test Negative Left Negative Right Vestibular Function Tests CTSIB Position 1 Mild Sway CTSIB Position 2 Severe Sway CTSIB Position 3 Fall Reaction CTSIB Position 4 Moderate Sway CTSIB Position 5 Fall Reaction CTSIB Position 6 Fall Reaction PT-OP-Q Treatments Start: 12/12/17 16:15 Freq: Status: Active Protocol: Document 01/30/18 13:58 SAK (Rec: 01/30/18 14:37 SAK [id number]) Cardio Equipment Recumbent Stepper (Sci-Fit) Duration (Minutes) 10 Resistance 3 Gym Equipment Shuttle Recovery Unilateral Squats Resistance 50# Reps/Time 10x2 Bilateral Squats Resistance 87# Reps/Time 10x2 Shuttle Balance standing bal Details chains red Comments balance and weight-shifts chains red Head turns EO(CG to min assist for bal) Therapeutic Exercises Other Exercises Resisted Forward/Backward stepping Other Exercise Name Resisted Forward/Backward stepping Resistance Green Equipment Used T-band Resisted Side-stepping Other Exercise Name Resisted Side-stepping Resistance Green Equipment Used T-band Neuro Re-Education Treatment Balance Activities 2 Details tandem stand 1 Details SLS PT-OP-T Assessment and Plan Start: 12/12/17 16:15 Freq: Status: Active Protocol: Document 01/30/18 13:58 [facility] (Rec: 01/30/18 14:37 [facility] [id number]) Physical Therapy Assessment Goals Four Impairment weakness Correction Goal (LTG) Patient LE strength to improve to at least 4+/5 all LE muscle groups (goal progress) LTG Duration 2 months Three Impairment balance Correction Goal (LTG) Improve Sandhu Balance score to 52 to decrease fall risk Decrease Get up and Go time to 10 sec Improve Dynamic Gait Index by 5 points (goal progress) LTG Duration 2 months Two Impairment dizziness Correction Goal (LTG) Patient to be evaluated and treated as indicated by vestibular PT (goal met, no further treatment) LTG Duration 2 months One Impairment gait Correction Goal (LTG) Patient able to ambulate at home, yard, and in community for short distances without difficulty or reports of falls (goal progress) Assessment Summary Assessment Patient demonstrating improving motivation to exercise, reports he will stop by fitness center to sign up after PT session today. Physical Therapy Plan Frequency and Duration Frequency of Treatment 2x/Week Duration of Treatment 2 months Plan of Care Start Date 12/17/17 Plan of Care End Date 02/16/18 Therapeutic Interventions Therapeutic Interventions Balance Training Gait Training Home Exercise Program Patient/Caregiver Education Self-Care/Home Management Therapeutic Activities Therapeutic Exercises Vestibular Rehabilitation Next Visit Focus/Plan Next Note Type Treatment Note Next Visit Plan Continue PT for gait training, balance, strengthening, patient education.
--- NOTE | 2018-02-04 15:30 | PT.OTN ---
Current Diagnoses Unspecified abnormalities of gait and mobility (02/04/18) Physical Therapy Treatment Note PT-OP-A Visit Information Start: 12/12/17 16:15 Freq: Status: Active Protocol: Document 02/04/18 15:17 SA (Rec: 02/04/18 15:30 SA [id number]) Out-Patient Physical Therapy Visit Information Visit Information Visit Type Treatment Note Visit Start Time 14:30 Visit Stop Time 15:15 Total Visit Minutes 45 Visit Number 15 Number of OPERATIONS COORDINATOR Visits 1 PT-OP-B Current Condition Start: 12/12/17 16:15 Freq: Status: Active Protocol: Document 12/10/17 16:16 SAK (Rec: 12/12/17 16:44 SAK [id number]) Current Condition History of Current Condition Onset Date 3+ years Current Complaints dizziness, balance difficulty History of Current Condition Patient states his primary c/o is dizziness causing difficulty with balance and walking. States he has had dizziness for several years, has had medical work-up with cause of dizziness so far uncertain. Worst dizziness is after prolonged sitting, especially in his car; reports when he stands up from car feels dizzy and has difficulty walking. Currently is having cardiac monitoring for the month of December, started with new judge last month. Reports he has circulatory problems in his LE 's and will be consulting further with his physician; very limited in walking due to aching in legs. Has had a couple falls. PMH: arterial disease, arthritis, back pain, HTN, cancer, DM, quadrupal bypass, neck pain, SOB. Treatment Goals Patient/Caregiver Goals Decrease his dizziness, and improve his balance and walking. Prior Functional Status Baseline Function- ADL's Independent Baseline Function- Mobility Independent Baseline Function- Gait independent community ambulation Current Functional Impairments (Reported) Functional Limitations- ADL's Cautious Functional Limitations- Mobility/Gait Limited by dizziness, balance difficulty Functional Limitations- Work/School retired PT-OP-C Subjective Start: 12/12/17 16:15 Freq: Status: Active Protocol: Document 02/04/18 15:17 SA (Rec: 02/04/18 15:30 SA [id number]) OP-PT Subjective Patient Comments Patient Comments Pt reports no falls since last visit, noted improved walking ability with shopping yesterday. Using new shoes with flat soles and he thinks this may be helpful. Patient Reported Progress Improving PT-OP-D Balance Start: 12/12/17 16:15 Freq: Status: Active Protocol: Document 01/10/18 14:43 SAK (Rec: 01/10/18 15:12 [facility] [id number]) Balance Tests Single Limb Standing Single Limb- Right 5 Single Limb- Left 4 Semi-Tandem Standing Semi-Tandem Standing Balance 6 Tandem Tandem Standing 3 PT-OP-E Functional Tests Start: 12/12/17 16:15 Freq: Status: Active Protocol: Document 01/10/18 14:43 SAK (Rec: 01/10/18 15:12 [facility] [id number]) Functional Tests Timed Up and Go (TUG) Score 11 TUG Impairment Rating 1 to <20% Impaired (Score 11) PT-OP-G Mobility & Gait Start: 12/12/17 16:15 Freq: Status: Active Protocol: Document 12/10/17 16:16 SAK (Rec: 12/12/17 16:58 [facility] [id number]) OP Gait Assessment Gait Gait Assistance Required: Independent Distance (Feet) 100 Assistive Devices Assistive Device None Gait Deviations General Gait Pattern Decreased Stride Length Decreased Feet Clearance PT-OP-K Range of Motion Start: 12/12/17 16:15 Freq: Status: Active Protocol: Document 12/10/17 16:16 SAK (Rec: 12/12/17 16:44 [facility] [id number]) Cervical Spine Range of Motion Cervical Spine Active Comments WFL, denied dizziness Lumbar Spine Range of Motion Lumbar Spine Active Comments WFL, denied dizziness with movement Hip Goniometric Range of Motion Hip ROM Limitations Comments WFL ginna LE's except ER left 35 , right 25 PSLR 55 left, 50 right Knee Goniometric Range of Motion Knee ROM Limitations Comments WFL Ankle and Foot Goniometric Range of Motion Ankle and Foot ROM Limitations ROM Limitations Soft Tissue Tightness Comments limited to neutral dorsiflexion ginna PT-OP-M Strength Start: 12/12/17 16:15 Freq: Status: Active Protocol: Document 12/10/17 16:16 SAK (Rec: 12/12/17 16:44 [facility] [id number]) Hip Strength Hip Manual Muscle Testing Right Flexion (L2) 4 Good Extension (S1) 3+ Fair+ Abduction 4- Good- External Rotation 3+ Fair+ Internal Rotation 4 Good Left Flexion (L2) 4 Good Extension (S1) 3+ Fair+ Abduction 4- Good- External Rotation 3+ Fair+ Internal Rotation 4 Good Knee Strength Knee Manual Muscle Testing Right Flexion (S2) 4+ Good+ Extension (L3) 4+ Good+ Left Flexion (S2) 4+ Good+ Extension (L3) 4+ Good+ Ankle/Foot Strength Ankle and Foot Manual Muscle Testing Right Dorsiflexion (L4) 4 Good Plantarflexion (S1) 4 Good Left Dorsiflexion (L4) 4- Good- Plantarflexion (S1) 4- Good- PT-OP-O Vestibular Start: 12/12/17 16:15 Freq: Status: Active Protocol: Document 12/17/17 09:45 DCW (Rec: 12/17/17 15:25 DCW [id number]) Vestibular Assessment Screening Tests Vestibular Artery Screen Negative Auditory Tests Carrasquillo Test Negative Rinne Test Negative Air Conduction Results Equal Visual Testing Smooth Pursuits Horizontal Negative Smooth Pursuits Vertical Negative Saccades Horizontal Negative Gaze Evoked Nystagmus With Fixation Negative Gaze Evoked Nystagmus Without Fixation Negative Heave Test Positive Bilateral Thrust Head Positive Bilateral DVA (Line Degradation) 0 Head Shake Negative Positional Testing Casi-Hallpike Negative Left Negative Right Rolling Test Negative Left Negative Right Vestibular Function Tests CTSIB Position 1 Mild Sway CTSIB Position 2 Severe Sway CTSIB Position 3 Fall Reaction CTSIB Position 4 Moderate Sway CTSIB Position 5 Fall Reaction CTSIB Position 6 Fall Reaction PT-OP-Q Treatments Start: 12/12/17 16:15 Freq: Status: Active Protocol: Document 02/04/18 15:17 SA (Rec: 02/04/18 15:30 SA [id number]) Cardio Equipment Recumbent Elliptical (Biodex) Duration (Minutes) 8 Resistance 4 Gym Equipment Shuttle Recovery Unilateral Squats Resistance 50# Reps/Time 2 x 15 Bilateral Squats Resistance 100# Reps/Time 2 x 15 Shuttle Balance standing bal Details chains red Comments NBOS stance, head turns, alternating UE. CGA provided Sport Cord fwd,bck,side Cord/Resistance red Reps/Duration 4 mi. Neuro Re-Education Treatment Balance Activities LE ball kicking Details BLE Reps/Duration 3 min Comments at bar with limited UE support . PT Aide for rolling balls continually at pt. Picking up balls Details Picking up balls from cones Equipment weighted balls Comments at bar with limited UE suport marching Equipment Blue foam pads Comments at bar with alternating LE marching on pads. 1 Details SLS Reps/Duration 2 min hurdles Details forward, sideways Equipment 2# ankle weights Comments 2 steps in between hurdles forward, min UE support in parallel bars PT-OP-T Assessment and Plan Start: 12/12/17 16:15 Freq: Status: Active Protocol: Document 02/04/18 15:17 SA (Rec: 02/04/18 15:30 SA [id number]) Physical Therapy Assessment Progress Towards Goals Progress Towards Goals Progressing Toward Goals Progress Comments Pt did not sign up at gym so was not able to review equipment use. Assessment Summary Assessment Pt feeling janeth with improved steadiness, admits picking objects off ground is still a challenge. Will try to follow up at gym. Physical Therapy Plan Next Visit Focus/Plan Next Note Type Treatment Note Next Visit Plan Follow up with gym membership to continue strength training , continue to challenge dynamic balance.
--- NOTE | 2018-02-13 16:49 | PT.OTN ---
Current Diagnoses Unspecified abnormalities of gait and mobility (02/13/18) Physical Therapy Treatment Note PT-OP-A Visit Information Start: 12/12/17 16:15 Freq: Status: Active Protocol: Document 02/13/18 15:32 EA (Rec: 02/13/18 16:03 EA [id number]) Out-Patient Physical Therapy Visit Information Visit Information Visit Type Treatment Note Visit Note Pt is late today Visit Start Time 15:30 Visit Stop Time 16:00 Total Visit Minutes 30 Visit Number 16 Number of SHEET METAL WORK FURNACE INSTALLER Visits 1 PT-OP-B Current Condition Start: 12/12/17 16:15 Freq: Status: Active Protocol: Document 12/10/17 16:16 SAK (Rec: 12/12/17 16:44 SAK [id number]) Current Condition History of Current Condition Onset Date 3+ years Current Complaints dizziness, balance difficulty History of Current Condition Patient states his primary c/o is dizziness causing difficulty with balance and walking. States he has had dizziness for several years, has had medical work-up with cause of dizziness so far uncertain. Worst dizziness is after prolonged sitting, especially in his car; reports when he stands up from car feels dizzy and has difficulty walking. Currently is having cardiac monitoring for the month of December, started with new supervisor telephone information last month. Reports he has circulatory problems in his LE 's and will be consulting further with his physician; very limited in walking due to aching in legs. Has had a couple falls. PMH: arterial disease, arthritis, back pain, HTN, cancer, DM, quadrupal bypass, neck pain, SOB. Treatment Goals Patient/Caregiver Goals Decrease his dizziness, and improve his balance and walking. Prior Functional Status Baseline Function- ADL's Independent Baseline Function- Mobility Independent Baseline Function- Gait independent community ambulation Current Functional Impairments (Reported) Functional Limitations- ADL's Cautious Functional Limitations- Mobility/Gait Limited by dizziness, balance difficulty Functional Limitations- Work/School retired PT-OP-C Subjective Start: 12/12/17 16:15 Freq: Status: Active Protocol: Document 02/13/18 15:32 EA (Rec: 02/13/18 16:03 EA [id number]) OP-PT Subjective Patient Comments Patient Comments Pt reports his right hip is pain free at this time. PT-OP-D Balance Start: 12/12/17 16:15 Freq: Status: Active Protocol: Document 01/10/18 14:43 SAK (Rec: 01/10/18 15:12 [facility] [id number]) Balance Tests Single Limb Standing Single Limb- Right 5 Single Limb- Left 4 Semi-Tandem Standing Semi-Tandem Standing Balance 6 Tandem Tandem Standing 3 PT-OP-E Functional Tests Start: 12/12/17 16:15 Freq: Status: Active Protocol: Document 01/10/18 14:43 SAK (Rec: 01/10/18 15:12 SAK [id number]) Functional Tests Timed Up and Go (TUG) Score 11 TUG Impairment Rating 1 to <20% Impaired (Score 11) PT-OP-G Mobility & Gait Start: 12/12/17 16:15 Freq: Status: Active Protocol: Document 12/10/17 16:16 SAK (Rec: 12/12/17 16:58 SAK [id number]) OP Gait Assessment Gait Gait Assistance Required: Independent Distance (Feet) 100 Assistive Devices Assistive Device None Gait Deviations General Gait Pattern Decreased Stride Length Decreased Feet Clearance PT-OP-K Range of Motion Start: 12/12/17 16:15 Freq: Status: Active Protocol: Document 12/10/17 16:16 SAK (Rec: 12/12/17 16:44 [facility] [id number]) Cervical Spine Range of Motion Cervical Spine Active Comments WFL, denied dizziness Lumbar Spine Range of Motion Lumbar Spine Active Comments WFL, denied dizziness with movement Hip Goniometric Range of Motion Hip ROM Limitations Comments WFL ginna LE's except ER left 35 , right 25 PSLR 55 left, 50 right Knee Goniometric Range of Motion Knee ROM Limitations Comments WFL Ankle and Foot Goniometric Range of Motion Ankle and Foot ROM Limitations ROM Limitations Soft Tissue Tightness Comments limited to neutral dorsiflexion ginna PT-OP-M Strength Start: 12/12/17 16:15 Freq: Status: Active Protocol: Document 12/10/17 16:16 SAK (Rec: 12/12/17 16:44 [facility] [id number]) Hip Strength Hip Manual Muscle Testing Right Flexion (L2) 4 Good Extension (S1) 3+ Fair+ Abduction 4- Good- External Rotation 3+ Fair+ Internal Rotation 4 Good Left Flexion (L2) 4 Good Extension (S1) 3+ Fair+ Abduction 4- Good- External Rotation 3+ Fair+ Internal Rotation 4 Good Knee Strength Knee Manual Muscle Testing Right Flexion (S2) 4+ Good+ Extension (L3) 4+ Good+ Left Flexion (S2) 4+ Good+ Extension (L3) 4+ Good+ Ankle/Foot Strength Ankle and Foot Manual Muscle Testing Right Dorsiflexion (L4) 4 Good Plantarflexion (S1) 4 Good Left Dorsiflexion (L4) 4- Good- Plantarflexion (S1) 4- Good- PT-OP-O Vestibular Start: 12/12/17 16:15 Freq: Status: Active Protocol: Document 12/17/17 09:45 DCW (Rec: 12/17/17 15:25 DCW [id number]) Vestibular Assessment Screening Tests Vestibular Artery Screen Negative Auditory Tests Carrasquillo Test Negative Rinne Test Negative Air Conduction Results Equal Visual Testing Smooth Pursuits Horizontal Negative Smooth Pursuits Vertical Negative Saccades Horizontal Negative Gaze Evoked Nystagmus With Fixation Negative Gaze Evoked Nystagmus Without Fixation Negative Heave Test Positive Bilateral Thrust Head Positive Bilateral DVA (Line Degradation) 0 Head Shake Negative Positional Testing Casi-Hallpike Negative Left Negative Right Rolling Test Negative Left Negative Right Vestibular Function Tests CTSIB Position 1 Mild Sway CTSIB Position 2 Severe Sway CTSIB Position 3 Fall Reaction CTSIB Position 4 Moderate Sway CTSIB Position 5 Fall Reaction CTSIB Position 6 Fall Reaction PT-OP-Q Treatments Start: 12/12/17 16:15 Freq: Status: Active Protocol: Document 02/13/18 15:32 EA (Rec: 02/13/18 16:03 EA [id number]) Cardio Equipment Recumbent Stepper (Sci-Fit) Duration (Minutes) 8 Resistance 3 Gym Equipment Cable Column (Body Solid) Leg Extension Resistance 40 Reps/Time 12 x 2 Shuttle Recovery Unilateral Squats Resistance 50# Reps/Time 2 x 15 Bilateral Squats Resistance 100# Reps/Time 2 x 15 Shuttle Balance 1 Details red clips Comments FWD/BWD Sport Cord fwd,bck,side Cord/Resistance Blue Reps/Duration 4 mi. Therapeutic Exercises Other Exercises Resisted Side-stepping Other Exercise Name Resisted Side-stepping Resistance Green Equipment Used T-band PT-OP-T Assessment and Plan Start: 12/12/17 16:15 Freq: Status: Active Protocol: Document 02/13/18 15:32 EA (Rec: 02/13/18 16:03 EA [id number]) Physical Therapy Assessment Assessment Summary Assessment Pt tolerated treament with improve mobility and balance. Patient is progressing well. Physical Therapy Plan Next Visit Focus/Plan Next Visit Plan Plan to d/c to [facility] and fitness program
--- NOTE | 2018-02-18 15:52 | PT.OTN ---
Current Diagnoses Unspecified abnormalities of gait and mobility (02/18/18) Physical Therapy Treatment Note PT-OP-A Visit Information Start: 12/12/17 16:15 Freq: Status: Active Protocol: Document 02/18/18 13:13 SAK (Rec: 02/18/18 13:34 SAK [id number]) Out-Patient Physical Therapy Visit Information Visit Information Visit Type Treatment Note Visit Start Time 13:05 Visit Stop Time 13:45 Total Visit Minutes 40 Visit Number 17 Number of STALLION MANAGER Visits 0 PT-OP-B Current Condition Start: 12/12/17 16:15 Freq: Status: Active Protocol: Document 12/10/17 16:16 SAK (Rec: 12/12/17 16:44 SAK [id number]) Current Condition History of Current Condition Onset Date 3+ years Current Complaints dizziness, balance difficulty History of Current Condition Patient states his primary c/o is dizziness causing difficulty with balance and walking. States he has had dizziness for several years, has had medical work-up with cause of dizziness so far uncertain. Worst dizziness is after prolonged sitting, especially in his car; reports when he stands up from car feels dizzy and has difficulty walking. Currently is having cardiac monitoring for the month of December, started with new salad bar clerk last month. Reports he has circulatory problems in his LE 's and will be consulting further with his physician; very limited in walking due to aching in legs. Has had a couple falls. PMH: arterial disease, arthritis, back pain, HTN, cancer, DM, quadrupal bypass, neck pain, SOB. Treatment Goals Patient/Caregiver Goals Decrease his dizziness, and improve his balance and walking. Prior Functional Status Baseline Function- ADL's Independent Baseline Function- Mobility Independent Baseline Function- Gait independent community ambulation Current Functional Impairments (Reported) Functional Limitations- ADL's Cautious Functional Limitations- Mobility/Gait Limited by dizziness, balance difficulty Functional Limitations- Work/School retired PT-OP-C Subjective Start: 12/12/17 16:15 Freq: Status: Active Protocol: Document 02/18/18 13:13 SAK (Rec: 02/18/18 13:34 SAK [id number]) OP-PT Subjective Patient Comments Patient Comments Reports having more confidence in walking. Still no pain in hip. PT-OP-D Balance Start: 12/12/17 16:15 Freq: Status: Active Protocol: Document 01/10/18 14:43 SAK (Rec: 01/10/18 15:12 [facility] [id number]) Balance Tests Single Limb Standing Single Limb- Right 5 Single Limb- Left 4 Semi-Tandem Standing Semi-Tandem Standing Balance 6 Tandem Tandem Standing 3 PT-OP-E Functional Tests Start: 12/12/17 16:15 Freq: Status: Active Protocol: Document 01/10/18 14:43 SAK (Rec: 01/10/18 15:12 SAK [id number]) Functional Tests Timed Up and Go (TUG) Score 11 TUG Impairment Rating 1 to <20% Impaired (Score 11) PT-OP-G Mobility & Gait Start: 12/12/17 16:15 Freq: Status: Active Protocol: Document 12/10/17 16:16 SAK (Rec: 12/12/17 16:58 SAK [id number]) OP Gait Assessment Gait Gait Assistance Required: Independent Distance (Feet) 100 Assistive Devices Assistive Device None Gait Deviations General Gait Pattern Decreased Stride Length Decreased Feet Clearance PT-OP-K Range of Motion Start: 12/12/17 16:15 Freq: Status: Active Protocol: Document 12/10/17 16:16 [facility] (Rec: 12/12/17 16:44 [facility] [id number]) Cervical Spine Range of Motion Cervical Spine Active Comments WFL, denied dizziness Lumbar Spine Range of Motion Lumbar Spine Active Comments WFL, denied dizziness with movement Hip Goniometric Range of Motion Hip ROM Limitations Comments WFL ginna LE's except ER left 35 , right 25 PSLR 55 left, 50 right Knee Goniometric Range of Motion Knee ROM Limitations Comments WFL Ankle and Foot Goniometric Range of Motion Ankle and Foot ROM Limitations ROM Limitations Soft Tissue Tightness Comments limited to neutral dorsiflexion ginna PT-OP-M Strength Start: 12/12/17 16:15 Freq: Status: Active Protocol: Document 12/10/17 16:16 SAK (Rec: 12/12/17 16:44 [facility] [id number]) Hip Strength Hip Manual Muscle Testing Right Flexion (L2) 4 Good Extension (S1) 3+ Fair+ Abduction 4- Good- External Rotation 3+ Fair+ Internal Rotation 4 Good Left Flexion (L2) 4 Good Extension (S1) 3+ Fair+ Abduction 4- Good- External Rotation 3+ Fair+ Internal Rotation 4 Good Knee Strength Knee Manual Muscle Testing Right Flexion (S2) 4+ Good+ Extension (L3) 4+ Good+ Left Flexion (S2) 4+ Good+ Extension (L3) 4+ Good+ Ankle/Foot Strength Ankle and Foot Manual Muscle Testing Right Dorsiflexion (L4) 4 Good Plantarflexion (S1) 4 Good Left Dorsiflexion (L4) 4- Good- Plantarflexion (S1) 4- Good- PT-OP-O Vestibular Start: 12/12/17 16:15 Freq: Status: Active Protocol: Document 12/17/17 09:45 DCW (Rec: 12/17/17 15:25 DCW [id number]) Vestibular Assessment Screening Tests Vestibular Artery Screen Negative Auditory Tests Carrasquillo Test Negative Rinne Test Negative Air Conduction Results Equal Visual Testing Smooth Pursuits Horizontal Negative Smooth Pursuits Vertical Negative Saccades Horizontal Negative Gaze Evoked Nystagmus With Fixation Negative Gaze Evoked Nystagmus Without Fixation Negative Heave Test Positive Bilateral Thrust Head Positive Bilateral DVA (Line Degradation) 0 Head Shake Negative Positional Testing Casi-Hallpike Negative Left Negative Right Rolling Test Negative Left Negative Right Vestibular Function Tests CTSIB Position 1 Mild Sway CTSIB Position 2 Severe Sway CTSIB Position 3 Fall Reaction CTSIB Position 4 Moderate Sway CTSIB Position 5 Fall Reaction CTSIB Position 6 Fall Reaction PT-OP-Q Treatments Start: 12/12/17 16:15 Freq: Status: Active Protocol: Document 02/18/18 13:13 [facility] (Rec: 02/18/18 13:34 [facility] [id number]) Cardio Equipment Recumbent Stepper (Sci-Fit) Duration (Minutes) 8 Resistance 3 Gym Equipment Cable Column (Body Solid) Leg Extension Resistance 40 Reps/Time 12 x 2 Shuttle Recovery Unilateral Squats Resistance 50# Reps/Time 2 x 15 Bilateral Squats Resistance 100# Reps/Time 2 x 15 Therapeutic Exercises Other Exercises Resisted Side-stepping Other Exercise Name Resisted Side-stepping Resistance Green Equipment Used T-band Neuro Re-Education Treatment Balance Activities hurdles Details forward, sideways Equipment 2# ankle weights Comments 2 steps in between hurdles forward, min UE support in parallel bars PT-OP-T Assessment and Plan Start: 12/12/17 16:15 Freq: Status: Active Protocol: Document 02/18/18 13:13 DAPHNIE (Rec: 02/18/18 13:34 [facility] [id number]) Physical Therapy Assessment Goals Four Impairment weakness Senior Care Goal (LTG) Patient LE strength to improve to at least 4+/5 all LE muscle groups (goal achieved) LTG Duration 2 months Three Impairment balance Senior Care Goal (LTG) Improve Sandhu Balance score to 52 to decrease fall risk Decrease Get up and Go time to 10 sec Improve Dynamic Gait Index by 5 points (goal achieved LTG Duration 2 months Two Impairment dizziness Senior Care Goal (LTG) Patient to be evaluated and treated as indicated by vestibular PT (goal met, no further treatment) LTG Duration 2 months One Impairment gait Senior Care Goal (LTG) Patient able to ambulate at home, yard, and in community for short distances without difficulty or reports of falls (goal met) Assessment Summary Assessment Reports doing squats but not balance exercises at home. Has signed up at fitness center. Physical Therapy Plan Discharge Physical Therapy Discharge Reasons Goals Met
== END 2018-02-19 11:54 ==
LOC: PHYS 13:00
PROVIDERS: PCP Internal Medicine; Visit Provider Internal Medicine
DX: R26.9 Unspecified abnormalities of gait and mobility (principal)
CPT/HCPCS: 97110; 97112; 97140; 97162; 97535

== ENCOUNTER 2018-05-06 18:14 | Observation (INO) | payer MEDICARE, OTHER, SELFPAY ==
[2018-05-06] VITALS (7 sets, daily range): BP systolic 149–180; BP diastolic 68–81; PULSE 75–89; RESP 16–32; TEMP 36.5–37.7; O2SAT 94–97; BMI 27.1
--- NOTE | 2018-05-06 18:20 | DI.RAD.S_ITS ---
PROCEDURE: XR CHEST 1V INDICATIONS: cough/fever/confusion TECHNIQUE: One view of the chest was acquired. COMPARISON: [facility], CR, XR CHEST 1V, 07/14/2017, 10:44. FINDINGS: Surgical changes and devices: Remote CABG Lungs and pleura: Lungs are clear. No pleural effusions or pneumothorax. Mediastinum: Mediastinal contours appear normal. Heart size is normal. Bones and chest wall: No suspicious bony lesions. Overlying soft tissues appear unremarkable. IMPRESSION: No evidence acute pulmonary process. Dictated by: Angel Lira M.D. on 05/06/2018 at 19:10 Approved by: Angel Lira M.D. on 05/06/2018 at 19:11
--- NOTE | 2018-05-06 18:22 | ED.URI ---
HPI - URI/Sore Throat <PAULO Shoemaker - Last Filed: 05/06/18 21:55> General Chief Complaint: Upper Respiratory Symptoms Stated Complaint: weakness w/ cough. Time Seen by Provider: 05/06/18 18:22 Source: patient and EMS Mode of arrival: ambulatory Limitations: no limitations History of Present Illness HPI Narrative: a 77-year-old male with history of hypertension type 2 diabetes and is a former smoker here for complaint of having cold and flu-like symptoms over the past couple of days. Recently just got back from [place] and was visiting friends down there that was also sick with similar symptoms. EMS reports he had increased weakness today where he had a hard time standing up from the living room floor. He states that he has had decreased fluid intake pain. He reports having some chest pain over the past couple of days which is worse with cough. Positive fever and chills. No nausea or vomiting. Generalized malaise. He denies having a productive cough. Related Data Home Medications Medication Instructions Recorded Confirmed carvedilol [Coreg] 12.5 mg PO BID #0 03/09/11 05/06/18 atorvastatin [Lipitor] 40 mg PO HS #0 04/06/11 05/06/18 [id number] [id number] 1 tab PO QAM 07/14/17 05/06/18 [Glucosamine Daily Complex] multivitamin 1 tab PO DAILY 07/14/17 02/14/18 clindamycin HCl 150 mg capsule 150 mg PO TID 07/22/17 05/06/18 fexofenadine 180 mg tablet 180 mg PO DAILY 07/22/17 05/06/18 lactobacillus rhamnosus R0011 20 1 cell PO DAILY cap 07/22/17 05/06/18 billion cell capsule oxybutynin chloride ER 5 mg 5 mg PO DAILY 07/22/17 05/06/18 tablet,extended release 24 hr coenzyme Q10 100 mg/mL oral liquid 100 mg PO DAILY ml 10/14/17 05/06/18 ticagrelor 60 mg tablet 60 mg PO DAILY 30 Days #60 tab 02/14/18 True Metrix Glucose Test Strip 05/06/18 05/06/18 Previous Rx's Medication Instructions Recorded clotrimazole-betamethasone 1 suly TP TID #45 gm 09/25/16 tamsulosin [Flomax] 0.4 mg PO BID #180 tab 04/10/17 triamcinolone acetonide 0.1 % 1 applictn TOP QID #453.6 gram 07/12/17 topical cream glipizide ER 10 mg tablet, 10 mg PO DAILY #60 tab 07/22/17 extended release 24 hr hydrochlorothiazide 25 mg PO QDAY #60 tab 01/06/18 famotidine 20 mg tablet 20 mg PO BID #60 tab 02/17/18 sertraline 50 mg PO QDAY #90 tab 02/27/18 metformin 1,000 mg PO BIDCC #90 tab 04/02/18 Allergies Allergy/AdvReac Type Severity Reaction Status Date / Time clopidogrel [From Plavix] Allergy Intermediate Hives. Verified 02/14/18 11:49 Penicillins Allergy Intermediate HIVES Verified 02/14/18 12:07 amoxicillin AdvReac Mild Hives Verified 02/14/18 11:44 Review of Systems <PAULO Shoemaker - Last Filed: 05/06/18 21:55> Constitutional Reports chills, Denies fatigue, Reports fever(s), Denies lethargy, Reports malaise and Denies weakness Eyes Denies change in vision, Denies eye discharge, Denies irritation and Denies loss of vision ENT Ears, Nose, Mouth, and Throat: Denies change in voice, Denies neck pain and Denies sore throat Cardiovascular Reports chest pain, Reports dyspnea and Denies dyspnea on exertion Respiratory Reports cough, Reports dyspnea, Denies dyspnea on exertion and Denies wheezing Genitourinary Denies hematuria, Denies flank pain, Denies urinary incontinence and Denies urinary urgency Musculoskeletal Denies neck pain Integumentary/Breasts Denies pruritus, Denies erythema, Denies rash and Denies wounds Neurologic Denies loss of vision and Denies weakness Endocrine Denies fatigue and Denies flushing Hematologic/Lymphatic Denies easy bruising Allergic/Immunologic Denies wheezing PFSH <PAULO Shoemaker - Last Filed: 05/06/18 21:55> Medical History Type 2 diabetes mellitus without complication (Chronic 06/20/15) Mixed hyperlipidemia (Chronic) Essential hypertension (Chronic) 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) Peripheral vascular disease (Chronic 2009) Benign prostatic hyperplasia with urinary obstruction (Chronic 03/25/15) Polymyalgia rheumatica (Chronic 08/30/15) Primary osteoarthritis of both hips (Chronic 08/30/15) Gilbert's syndrome (Chronic) Kidney stones (Chronic 1984) Chronic back pain (Chronic 1989) Shoulder pain (Chronic 2011) Hayfever (Chronic 1999) Chicken pox (Resolved) Femur fracture (Resolved 1965) Fracture (Resolved 1951) Hepatitis A (Resolved 1963) Measles (Resolved) Melanoma (Resolved 1987) Mumps (Resolved) Family History Father Colon cancer Prostate enlargement Bladder cancer History of hip surgery Pneumonia History of prostate surgery Mother Diabetes mellitus Heart disease Hypertension High cholesterol Osteoporosis History of cataract surgery H/O heart bypass surgery Arthritis Grandfather Arthritis Prostate cancer Colon cancer Deaf Legally blind Grandmother Diabetes mellitus Hypertension Angina pectoris Heart disease Osteoporosis Social History marital status: number of children: 0 household members: spouse lives independently: Yes caregiver/support person: No housing: house pets and animals: Yes education level: other ([employer] degree) occupational status: other (Retired) 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/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: None travel history: other ([place] in past) leisure activities: other ([place]) Smoking Status: Former smoker Tobacco: How many years used: 20 Smokeless tobacco user: other (Cigarettes) quit status: quit date established (1979) second hand exposure: No alcohol intake: current substance use type: does not use and marijuana (Back in the 60's) Exam <PAULO Shoemaker - Last Filed: 05/06/18 21:55> Initial Vital Signs Initial Vital Signs: Vital Signs Temperature 99.9 F H 05/06/18 18:16 Pulse Rate 86 05/06/18 18:16 Respiratory Rate 32 H 05/06/18 18:16 Blood Pressure 171/81 H 05/06/18 18:16 Pulse Oximetry 94 05/06/18 18:16 Const General: cooperative and well developed Nutritional Appearance: well nourished Orientation: alert, awake, oriented x3 and confused HENMT Mouth: oral mucosae normal and moist mucous membranes Throat: posterior oropharynx normal Eyes Conjunctivae: conjunctivae normal Sclera: sclerae normal Pupils: PERRL EOM: EOM intact bilaterally Resp Effort & Inspection: normal respiratory effort, able to speak in complete sentences, no respiratory distress and no use of accessory muscles Auscultation: no rales, no rhonchi and wheezes expiratory wheezes and upper bilaterally Cardio Rate: regular rate Rhythm: regular rhythm Heart Sounds: no click, no gallops, no murmurs and no rubs Pulses: normal peripheral pulses GI Inspection: non-distended Palpation: soft, no hepatosplenomegaly, No guarding, No pulsatile mass and No tender Auscultation: normal bowel sounds Skin General: no rashes or lesions noted, No jaundice and No petechiae Neuro General: alert, oriented x3, gait normal and no focal motor deficits Speech: speech normal <Rogelio Johnson MD - Last Filed: 05/07/18 02:45> Initial Vital Signs Initial Vital Signs: Vital Signs Temperature 99.9 F H 05/06/18 18:16 Pulse Rate 86 05/06/18 18:16 Respiratory Rate 32 H 05/06/18 18:16 Blood Pressure 171/81 H 05/06/18 18:16 Pulse Oximetry 94 05/06/18 18:16 Course <PAULO Shoemaker - Last Filed: 05/06/18 21:55> Orders Ordered: ED Orders 05/06/18 18:20 Chest [XR chest 1V] Stat 05/06/18 18:25 Basic Metabolic Panel Stat Bilirubin Total Stat Complete Blood Count AUTO DIFF Stat Influenza A and B by PCR Rapid Stat Lactate (Lactic Acid) Stat Partial Thromboplastin Time Stat Prothrombin Time INR Stat Troponin & CK Cardiac Panel Stat 05/06/18 18:26 EKG-12 Lead Stat 05/06/18 18:57 CT head/brain wo con Stat 05/06/18 19:11 Blood Culture Stat 05/06/18 21:16 Consult to Physician Routine Albuterol (Ventolin) 2.5 mg INH [id number] PRN PRN Reason: Shortness Of Breath Discontinued Medications Acetaminophen (Tylenol) 650 mg PO Q6HR PRN PRN Reason: As Needed for Fever/Mild Pain Hydrocodone Bitart/Acetaminophen ([place] 5/325) 1 tab PO Q4HR PRN PRN Reason: Pain, Moderate (4-6) Albuterol/Ipratropium (Duoneb) 3 ml INH NOW ONE Stop: 05/06/18 19:58 Last Admin: 05/06/18 20:12 Dose: 3 ml Sodium Chloride (Normal Saline 0.9%) 1,000 mls @ 1,000 mls/hr IV BOLUS ONE Stop: 05/06/18 19:49 Last Infusion: 05/06/18 20:27 Dose: 0 mls/hr Admin: 05/06/18 18:51 Dose: 1,000 mls/hr Sodium Chloride (Normal Saline 0.9%) 1,000 mls @ 125 mls/hr IV CONT MARY Last Admin: 05/07/18 02:10 Dose: Not Given Ondansetron HCl (Zofran) 4 mg IV Q4HR PRN PRN Reason: Nausea And Vomiting Ondansetron HCl (Zofran) 4 mg IV NOW ONE Stop: 05/06/18 21:38 Last Admin: 05/06/18 21:38 Dose: 4 mg Oseltamivir Phosphate (Tamiflu) 75 mg PO NOW ONE Stop: 05/06/18 19:58 Last Admin: 05/06/18 20:24 Dose: 75 mg Potassium Chloride (Klor-Con M20) 20 meq PO NOW ONE Stop: 05/06/18 20:53 Last Admin: 05/07/18 00:20 Dose: Not Given Potassium Chloride (Klor-Con M20) 20 meq PO NOW ONE Stop: 05/06/18 23:46 Last Admin: 05/07/18 00:20 Dose: 20 meq Vital Signs - 8 hr 05/06/18 19:30 05/06/18 20:13 05/06/18 21:20 Temperature Pulse Rate 89 87 Respiratory Rate 24 22 Blood Pressure Blood Pressure [Right Arm] 180/81 H Pulse Oximetry 96 97 94 05/06/18 21:27 05/06/18 21:56 05/06/18 23:26 Temperature 97.7 F Pulse Rate 75 82 Respiratory Rate 31 H 16 Blood Pressure 166/70 H 149/78 H Blood Pressure [Right Arm] 168/68 H Pulse Oximetry 96 95 <Rogelio Johnson MD - Last Filed: 05/07/18 02:45> Orders Ordered: ED Orders 05/06/18 18:20 Chest [XR chest 1V] Stat 05/06/18 18:25 Basic Metabolic Panel Stat Bilirubin Total Stat Complete Blood Count AUTO DIFF Stat Influenza A and B by PCR Rapid Stat Lactate (Lactic Acid) Stat Partial Thromboplastin Time Stat Prothrombin Time INR Stat Troponin & CK Cardiac Panel Stat 05/06/18 18:26 EKG-12 Lead Stat 05/06/18 18:57 CT head/brain wo con Stat 05/06/18 19:11 Blood Culture Stat 05/06/18 21:16 Consult to Physician Routine Albuterol (Ventolin) 2.5 mg INH [id number] PRN PRN Reason: Shortness Of Breath Discontinued Medications Acetaminophen (Tylenol) 650 mg PO Q6HR PRN PRN Reason: As Needed for Fever/Mild Pain Hydrocodone Bitart/Acetaminophen ([place] 5/325) 1 tab PO Q4HR PRN PRN Reason: Pain, Moderate (4-6) Albuterol/Ipratropium (Duoneb) 3 ml INH NOW ONE Stop: 05/06/18 19:58 Last Admin: 05/06/18 20:12 Dose: 3 ml Sodium Chloride (Normal Saline 0.9%) 1,000 mls @ 1,000 mls/hr IV BOLUS ONE Stop: 05/06/18 19:49 Last Infusion: 05/06/18 20:27 Dose: 0 mls/hr Admin: 05/06/18 18:51 Dose: 1,000 mls/hr Sodium Chloride (Normal Saline 0.9%) 1,000 mls @ 125 mls/hr IV CONT MARY Last Admin: 05/07/18 02:10 Dose: Not Given Ondansetron HCl (Zofran) 4 mg IV Q4HR PRN PRN Reason: Nausea And Vomiting Ondansetron HCl (Zofran) 4 mg IV NOW ONE Stop: 05/06/18 21:38 Last Admin: 05/06/18 21:38 Dose: 4 mg Oseltamivir Phosphate (Tamiflu) 75 mg PO NOW ONE Stop: 05/06/18 19:58 Last Admin: 05/06/18 20:24 Dose: 75 mg Potassium Chloride (Klor-Con M20) 20 meq PO NOW ONE Stop: 05/06/18 20:53 Last Admin: 05/07/18 00:20 Dose: Not Given Potassium Chloride (Klor-Con M20) 20 meq PO NOW ONE Stop: 05/06/18 23:46 Last Admin: 05/07/18 00:20 Dose: 20 meq Vital Signs - 8 hr 05/06/18 19:30 05/06/18 20:13 05/06/18 21:20 Temperature Pulse Rate 89 87 Respiratory Rate 24 22 Blood Pressure Blood Pressure [Right Arm] 180/81 H Pulse Oximetry 96 97 94 05/06/18 21:27 05/06/18 21:56 05/06/18 23:26 Temperature 97.7 F Pulse Rate 75 82 Respiratory Rate 31 H 16 Blood Pressure 166/70 H 149/78 H Blood Pressure [Right Arm] 168/68 H Pulse Oximetry 96 95 MDM - URI/Sore Throat <PAULO Shoemaker - Last Filed: 05/06/18 21:55> Lab Data Result diagrams: 05/06/18 18:25 05/06/18 18:25 Lab Results 05/06/18 05/06/18 05/06/18 Range/Units 18:25 18:25 18:25 WBC 9.8 (4.5-11.0) X10^3/uL RBC 4.31 L (4.5-5.9) X10^6/uL Hgb 14.5 (13.5-17.5) g/dL Hct 42.3 (41-53) % MCV 98.2 (80-100) fL MCH 33.6 (26-34) PG MCHC 34.2 (30-36) % RDW 13.6 (11.6-14.8) % Plt Count 206 (150-400) X10^3/uL Neut % (Auto) 82.8 H (50-75) % Lymph % (Auto) 7.1 L (25-40) % Baker % (Auto) 8.6 (3-14) % Eos % (Auto) 0.8 L (2-4) % Baso % (Auto) 0.7 (0-2) % Neut # (Auto) 8100 H (2866-3874) /uL Lymph # (Auto) 700 L (9972-8830) /uL Baker # (Auto) 800 (0-900) /uL Eos # (Auto) 100 (0-450) /uL Baso # (Auto) 100 (0-100) /uL PT 11.6 (10.1-12.7) SECONDS INR 1.0 (0.9-1.3) APTT 20 L (26.4-36.2) SECONDS Sodium (137-145) mmol/L Potassium (3.4-5.1) mmol/L Chloride (98-107) mmol/L Carbon Dioxide (22-32) mmol/L BUN (9-20) mg/dL Creatinine (0.66-1.25) mg/dL Estimated GFR (>60) mL/min BUN/Creatinine Ratio (6-22) Glucose (80-110) mg/dL Lactate (0.7-2.1) mmol/L Calcium (8.4-10.2) mg/dL Total Bilirubin (0.2-1.3) mg/dL Total Creatine Kinase (55-170) U/L CK-MB (CK-2) (<2.37) ng/mL CK-MB (CK-2) Rel Index (1.5-5.0) % Troponin I (0.01-0.034) ng/mL Influenza A & B (PCR) Positive, type a A (Negative) 05/06/18 05/06/18 05/06/18 Range/Units 18:25 18:25 18:25 WBC (4.5-11.0) X10^3/uL RBC (4.5-5.9) X10^6/uL Hgb (13.5-17.5) g/dL Hct (41-53) % MCV (80-100) fL MCH (26-34) PG MCHC (30-36) % RDW (11.6-14.8) % Plt Count (150-400) X10^3/uL Neut % (Auto) (50-75) % Lymph % (Auto) (25-40) % Baker % (Auto) (3-14) % Eos % (Auto) (2-4) % Baso % (Auto) (0-2) % Neut # (Auto) (9632-2141) /uL Lymph # (Auto) (8284-1196) /uL Baker # (Auto) (0-900) /uL Eos # (Auto) (0-450) /uL Baso # (Auto) (0-100) /uL PT (10.1-12.7) SECONDS INR (0.9-1.3) APTT (26.4-36.2) SECONDS Sodium 134 L (137-145) mmol/L Potassium 3.2 L (3.4-5.1) mmol/L Chloride 99 (98-107) mmol/L Carbon Dioxide 24 (22-32) mmol/L BUN 18 (9-20) mg/dL Creatinine 1.00 (0.66-1.25) mg/dL Estimated GFR > 60.0 (>60) mL/min BUN/Creatinine Ratio 18.0 (6-22) Glucose 207 H (80-110) mg/dL Lactate 1.9 (0.7-2.1) mmol/L Calcium 8.9 (8.4-10.2) mg/dL Total Bilirubin 1.1 (0.2-1.3) mg/dL Total Creatine Kinase 251 H (55-170) U/L CK-MB (CK-2) 0.87 (<2.37) ng/mL CK-MB (CK-2) Rel Index 0.3 L (1.5-5.0) % Troponin I 0.022 (0.01-0.034) ng/mL Influenza A & B (PCR) (Negative) Urine Dip Bedside Urine Glucose 250 mg/dl Bedside Urine Bilirubin + 1 Bedside Urine Ketone +/- 5 Urine Specific [place] 1.030 Bedside Urine Occult Blood +++ Bedside Urine pH 5.5 Bedside Urine Protein ++ 100 Bedside Urine Urobilinogen - Negative Bedside Urine Nitrite - Negative Bedside Urine Leukocytes - Negative Esterase Imaging Data CT scan - head: Radiologist's impression: [place] [address] CT Scan Report Signed Patient: Kris Barbour R#: [id number] : 2Acct:[id number] Age/Sex: 77 / MDate of Service: 05/06/18 Loc: ED Accession Number: [id number] Procedure: CT head/brain wo con Ordering Provider: Carlos Samuel PROCEDURE: CT HEAD/BRAIN WO CON INDICATIONS: weakness feeling confused last few days TECHNIQUE: Noncontrast 4.5 mm thick angled axial sections acquired from the foramen magnum to the vertex, with coronal and sagittal reformats. For radiation dose reduction, the following was used: automated exposure control, adjustment of mA and/or kV according to patient size. COMPARISON: [facility], CT, HEAD WITHOUT CONTRAST, 01/21/2017, 11:10. FINDINGS: Image quality: Excellent. CSF spaces: Basal cisterns are patent. No extra-axial fluid collections. Ventricles are normal in size and shape. Brain: No midline shift. No intracranial masses or hemorrhage. No evidence acute stroke. White-white matter interface is normal. Age-related white loss and multiple vessels ischemic change. Skull and face: Calvarium and visualized facial bones are intact, without suspicious lesions. Sinuses: Visualized sinuses and mastoids are clear. IMPRESSION: 1. Age related finding loss and mild small vessel ischemic change. 2. Negative for acute stroke, hemorrhage, or mass. Dictated by: Angel Lira M.D. on 05/06/2018 at 19:12 Approved by: Angel Lira M.D. on 05/06/2018 at 19:13 Chest x-ray: Radiologist's impression: [place] [address] XRay Report Signed Patient: Kris Barbour RMR#: [id number] : 2Acct:[id number] Age/Sex: 77 / MDate of Service: 05/06/18 Loc: ED Accession Number: [id number] Procedure: XR chest 1V Ordering Provider: Carlos Samuel PROCEDURE: XR CHEST 1V INDICATIONS: cough/fever/confusion TECHNIQUE: One view of the chest was acquired. COMPARISON: [facility], CR, XR CHEST 1V, 07/14/2017, 10:44. FINDINGS: Surgical changes and devices: Remote CABG Lungs and pleura: Lungs are clear. No pleural effusions or pneumothorax. Mediastinum: Mediastinal contours appear normal. Heart size is normal. Bones and chest wall: No suspicious bony lesions. Overlying soft tissues appear unremarkable. IMPRESSION: No evidence acute pulmonary process. Dictated by: Angel Lira M.D. on 05/06/2018 at 19:10 Approved by: Angel Lira M.D. on 05/06/2018 at 19:11 ECG Data Interpretation: EKG shows sinus rhythm with no ST elevation or depression ventricular rate is 83. pr interval is 182. QRS duration is 133. QTC of 434. EKG shows right bundle branch block. T-waves are inverted on V2 V3 V5 and V6. EKG is consistent with prior EKGs MDM Narrative Medical decision making narrative: Chest x-ray was obtained was negative for any acute findings. CT of the head was also obtained was also negative for any acute findings. CBC shows elevated neutrophils otherwise is unremarkable. Chem panel was obtained and shows mild hyponatremia at 1:34 a.m. and hypokalemia at 3.2 otherwise is unremarkable. Cardiac enzymes were obtained and were negative. After fluids patient felt much better. He was much clearer mentally as well. Influenza swab was obtained and was positive. Patient is unable to ambulate at the current time frame without desatting and with weakness so he is admitted to observation for hydration and further evaluation. Tamiflu was given in the emergency room. He was also given 20 mEq of potassium. discussed case with Dr. Nolan. hospitalist who accepted patient. Patient is admitted to observation. <Rogelio Jhonson MD - Last Filed: 05/07/18 02:45> Lab Data Lab Results 05/06/18 05/06/18 05/06/18 Range/Units 18:25 18:25 18:25 WBC 9.8 (4.5-11.0) X10^3/uL RBC 4.31 L (4.5-5.9) X10^6/uL Hgb 14.5 (13.5-17.5) g/dL Hct 42.3 (41-53) % MCV 98.2 (80-100) fL MCH 33.6 (26-34) PG MCHC 34.2 (30-36) % RDW 13.6 (11.6-14.8) % Plt Count 206 (150-400) X10^3/uL Neut % (Auto) 82.8 H (50-75) % Lymph % (Auto) 7.1 L (25-40) % Baker % (Auto) 8.6 (3-14) % Eos % (Auto) 0.8 L (2-4) % Baso % (Auto) 0.7 (0-2) % Neut # (Auto) 8100 H (9717-1095) /uL Lymph # (Auto) 700 L (7801-9004) /uL Baker # (Auto) 800 (0-900) /uL Eos # (Auto) 100 (0-450) /uL Baso # (Auto) 100 (0-100) /uL PT 11.6 (10.1-12.7) SECONDS INR 1.0 (0.9-1.3) APTT 20 L (26.4-36.2) SECONDS Sodium (137-145) mmol/L Potassium (3.4-5.1) mmol/L Chloride (98-107) mmol/L Carbon Dioxide (22-32) mmol/L BUN (9-20) mg/dL Creatinine (0.66-1.25) mg/dL Estimated GFR (>60) mL/min BUN/Creatinine Ratio (6-22) Glucose (80-110) mg/dL Lactate (0.7-2.1) mmol/L Calcium (8.4-10.2) mg/dL Total Bilirubin (0.2-1.3) mg/dL Total Creatine Kinase (55-170) U/L CK-MB (CK-2) (<2.37) ng/mL CK-MB (CK-2) Rel Index (1.5-5.0) % Troponin I (0.01-0.034) ng/mL Influenza A & B (PCR) Positive, type a A (Negative) 05/06/18 05/06/18 05/06/18 Range/Units 18:25 18:25 18:25 WBC (4.5-11.0) X10^3/uL RBC (4.5-5.9) X10^6/uL Hgb (13.5-17.5) g/dL Hct (41-53) % MCV (80-100) fL MCH (26-34) PG MCHC (30-36) % RDW (11.6-14.8) % Plt Count (150-400) X10^3/uL Neut % (Auto) (50-75) % Lymph % (Auto) (25-40) % Baker % (Auto) (3-14) % Eos % (Auto) (2-4) % Baso % (Auto) (0-2) % Neut # (Auto) (8036-0903) /uL Lymph # (Auto) (5483-9650) /uL Baker # (Auto) (0-900) /uL Eos # (Auto) (0-450) /uL Baso # (Auto) (0-100) /uL PT (10.1-12.7) SECONDS INR (0.9-1.3) APTT (26.4-36.2) SECONDS Sodium 134 L (137-145) mmol/L Potassium 3.2 L (3.4-5.1) mmol/L Chloride 99 (98-107) mmol/L Carbon Dioxide 24 (22-32) mmol/L BUN 18 (9-20) mg/dL Creatinine 1.00 (0.66-1.25) mg/dL Estimated GFR > 60.0 (>60) mL/min BUN/Creatinine Ratio 18.0 (6-22) Glucose 207 H (80-110) mg/dL Lactate 1.9 (0.7-2.1) mmol/L Calcium 8.9 (8.4-10.2) mg/dL Total Bilirubin 1.1 (0.2-1.3) mg/dL Total Creatine Kinase 251 H (55-170) U/L CK-MB (CK-2) 0.87 (<2.37) ng/mL CK-MB (CK-2) Rel Index 0.3 L (1.5-5.0) % Troponin I 0.022 (0.01-0.034) ng/mL Influenza A & B (PCR) (Negative) Urine Dip Bedside Urine Glucose 250 mg/dl Bedside Urine Bilirubin + 1 Bedside Urine Ketone +/- 5 Urine Specific [place] 1.030 Bedside Urine Occult Blood +++ Bedside Urine pH 5.5 Bedside Urine Protein ++ 100 Bedside Urine Urobilinogen - Negative Bedside Urine Nitrite - Negative Bedside Urine Leukocytes - Negative Esterase Discharge Plan Departure Patient Disposition: Admitted as Observation Clinical Impression: Influenza A Discharge Date/Time: 05/06/18 21:56 Interventions: ED Discharge Assessment Last Done: 05/06/18 21:56 Admit Date/Time: 05/06/18 21:27 Admit Provider: Saqib Nolan <Rogelio Johnson MD - Last Filed: 05/07/18 02:45> Cosign ED Attending Cosignature Attestation: I was present in the ER at the time this patient's care. I was available for verbal consultation or to see the patient directly if requested. I agree with the assessment and management plan.
[2018-05-06] MEDS: SODIUM CHLORIDE 0.9% 1,000 ML 1000 ML IV (18:51)
[2018-05-06 18:52] LABS: Add Manual Diff / Slide Review NO; Basophils Absolute Auto 100 /uL (0-100); Basophils Percent Auto 0.7 % (0-2); Eosinophils Absolute Auto 100 /uL (0-450); Eosinophils Percent Auto 0.8 % (2-4); Hematocrit 42.3 % (41-53); Hemoglobin 14.5 g/dL (13.5-17.5); Lymphocytes Absolute Auto 700 /uL (1100-4500); Lymphocytes Percent Auto 7.1 % (25-40); Mean Corpuscular HGB Conc 34.2 % (30-36); Mean Corpuscular Hemoglobin 33.6 PG (26-34); Mean Corpuscular Volume 98.2 fL (80-100); Monocytes Absolute Auto 800 /uL (0-900); Monocytes Percent Auto 8.6 % (3-14); Neutrophils Absolute Auto 8100 /uL (1500-7000); Neutrophils Percent Auto 82.8 % (50-75); Platelet Count 206 X10^3/uL (150-400); Red Blood Cell Count 4.31 X10^6/uL (4.5-5.9); Red Cell Distribution Width 13.6 % (11.6-14.8); White Blood Cell Count 9.8 X10^3/uL (4.5-11.0)
--- NOTE | 2018-05-06 18:57 | DI.CT.S_ITS ---
PROCEDURE: CT HEAD/BRAIN WO CON INDICATIONS: weakness feeling confused last few days TECHNIQUE: Noncontrast 4.5 mm thick angled axial sections acquired from the foramen magnum to the vertex, with coronal and sagittal reformats. For radiation dose reduction, the following was used: automated exposure control, adjustment of mA and/or kV according to patient size. COMPARISON: [facility], CT, HEAD WITHOUT CONTRAST, 01/21/2017, 11:10. FINDINGS: Image quality: Excellent. CSF spaces: Basal cisterns are patent. No extra-axial fluid collections. Ventricles are normal in size and shape. Brain: No midline shift. No intracranial masses or hemorrhage. No evidence acute stroke. White-white matter interface is normal. Age-related white loss and multiple vessels ischemic change. Skull and face: Calvarium and visualized facial bones are intact, without suspicious lesions. Sinuses: Visualized sinuses and mastoids are clear. IMPRESSION: 1. Age related finding loss and mild small vessel ischemic change. 2. Negative for acute stroke, hemorrhage, or mass. Dictated by: Angel Lira M.D. on 05/06/2018 at 19:12 Approved by: Angel Lira M.D. on 05/06/2018 at 19:13
[2018-05-06 19:08] LABS: Prothrombin Time 11.6 SECONDS (10.1-12.7)
[2018-05-06 19:11] LABS: PTT Partial Thromboplastin Tim 20 SECONDS (26.4-36.2)
[2018-05-06 19:12] LABS: Creatine Kinase 251 U/L (55-170); Lactate (Lactic Acid) 1.9 mmol/L (0.7-2.1)
--- NOTE | 2018-05-06 19:20 | PC.NURSE ---
fever, cough, recent sick contacts, confusion today, slow to respond to questions, negative FAST, oriented to self only, denies pain
[2018-05-06 19:25] LABS: Bilirubin Total 1.1 mg/dL (0.2-1.3); Blood Urea Nitrogen 18 mg/dL (9-20); Calcium 8.9 mg/dL (8.4-10.2); Carbon Dioxide 24 mmol/L (22-32); Chloride 99 mmol/L (98-107); Estimated Glomerular Filt Rate > 60.0 mL/min (>60); Glucose 207 mg/dL (80-110); HEMOLYSIS < 15 (0-50); Potassium 3.2 mmol/L (3.4-5.1); Sodium 134 mmol/L (137-145); Troponin I 0.022 ng/mL (0.01-0.034)
[2018-05-06 19:28] LABS: CKMB % Relative Index 0.3 % (1.5-5.0); Creatine Kinase MB 0.87 ng/mL (<2.37)
[2018-05-06] MEDS: ALBUTEROL/IPRATROPIUM 3 ML AMPUL INH (20:12)
[2018-05-06] MEDS: OSELTAMIVIR 75 MG CAPSULE PO (20:24)
--- NOTE | 2018-05-06 21:03 | ED_ITS ---
HPI - URI/Sore Throat <PAULO Shoemaker - Last Filed: 05/06/18 21:55> General Chief Complaint: Upper Respiratory Symptoms Stated Complaint: weakness w/ cough. Time Seen by Provider: 05/06/18 18:22 Source: patient and EMS Mode of arrival: ambulatory Limitations: no limitations History of Present Illness HPI Narrative: a 77-year-old male with history of hypertension type 2 diabetes and is a former smoker here for complaint of having cold and flu-like symptoms over the past couple of days. Recently just got back from [place] and was visiting friends down there that was also sick with similar symptoms. EMS reports he had increased weakness today where he had a hard time standing up from the living room floor. He states that he has had decreased fluid intake pain. He reports having some chest pain over the past couple of days which is worse with cough. Positive fever and chills. No nausea or vomiting. Generalized malaise. He denies having a productive cough. Related Data Home Medications Medication Instructions Recorded Confirmed carvedilol [Coreg] 12.5 mg PO BID #0 03/09/11 05/06/18 atorvastatin [Lipitor] 40 mg PO HS #0 04/06/11 05/06/18 [id number] serr 1 tab PO QAM 07/14/17 05/06/18 [Glucosamine Daily Complex] multivitamin 1 tab PO DAILY 07/14/17 02/14/18 clindamycin HCl 150 mg capsule 150 mg PO TID 07/22/17 05/06/18 fexofenadine 180 mg tablet 180 mg PO DAILY 07/22/17 05/06/18 lactobacillus rhamnosus R0011 20 1 cell PO DAILY cap 07/22/17 05/06/18 billion cell capsule oxybutynin chloride ER 5 mg 5 mg PO DAILY 07/22/17 05/06/18 tablet,extended release 24 hr coenzyme Q10 100 mg/mL oral liquid 100 mg PO DAILY ml 10/14/17 05/06/18 ticagrelor 60 mg tablet 60 mg PO DAILY 30 Days #60 tab 02/14/18 True Metrix Glucose Test Strip 05/06/18 05/06/18 Previous Rx's Medication Instructions Recorded clotrimazole-betamethasone 1 suly TP TID #45 gm 09/25/16 tamsulosin [Flomax] 0.4 mg PO BID #180 tab 04/10/17 triamcinolone acetonide 0.1 % 1 applictn TOP QID #453.6 gram 07/12/17 topical cream glipizide ER 10 mg tablet, 10 mg PO DAILY #60 tab 07/22/17 extended release 24 hr hydrochlorothiazide 25 mg PO QDAY #60 tab 01/06/18 famotidine 20 mg tablet 20 mg PO BID #60 tab 02/17/18 sertraline 50 mg PO QDAY #90 tab 02/27/18 metformin 1,000 mg PO BIDCC #90 tab 04/02/18 Allergies Allergy/AdvReac Type Severity Reaction Status Date / Time clopidogrel [From Plavix] Allergy Intermediate Hives. Verified 02/14/18 11:49 Penicillins Allergy Intermediate HIVES Verified 02/14/18 12:07 amoxicillin AdvReac Mild Hives Verified 02/14/18 11:44 Review of Systems <PAULO Shoemaker - Last Filed: 05/06/18 21:55> Constitutional Reports chills, Denies fatigue, Reports fever(s), Denies lethargy, Reports malaise and Denies weakness Eyes Denies change in vision, Denies eye discharge, Denies irritation and Denies loss of vision ENT Ears, Nose, Mouth, and Throat: Denies change in voice, Denies neck pain and Denies sore throat Cardiovascular Reports chest pain, Reports dyspnea and Denies dyspnea on exertion Respiratory Reports cough, Reports dyspnea, Denies dyspnea on exertion and Denies wheezing Genitourinary Denies hematuria, Denies flank pain, Denies urinary incontinence and Denies urinary urgency Musculoskeletal Denies neck pain Integumentary/Breasts Denies pruritus, Denies erythema, Denies rash and Denies wounds Neurologic Denies loss of vision and Denies weakness Endocrine Denies fatigue and Denies flushing Hematologic/Lymphatic Denies easy bruising Allergic/Immunologic Denies wheezing PFSH <PAULO Shoemaker - Last Filed: 05/06/18 21:55> Medical History Type 2 diabetes mellitus without complication (Chronic 06/20/15) Mixed hyperlipidemia (Chronic) Essential hypertension (Chronic) 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) Peripheral vascular disease (Chronic 2009) Benign prostatic hyperplasia with urinary obstruction (Chronic 03/25/15) Polymyalgia rheumatica (Chronic 08/30/15) Primary osteoarthritis of both hips (Chronic 08/30/15) Gilbert's syndrome (Chronic) Kidney stones (Chronic 1984) Chronic back pain (Chronic 1989) Shoulder pain (Chronic 2011) Hayfever (Chronic 1999) Chicken pox (Resolved) Femur fracture (Resolved 1965) Fracture (Resolved 1951) Hepatitis A (Resolved 1963) Measles (Resolved) Melanoma (Resolved 1987) Mumps (Resolved) Family History Father Colon cancer Prostate enlargement Bladder cancer History of hip surgery Pneumonia History of prostate surgery Mother Diabetes mellitus Heart disease Hypertension High cholesterol Osteoporosis History of cataract surgery H/O heart bypass surgery Arthritis Grandfather Arthritis Prostate cancer Colon cancer Deaf Legally blind Grandmother Diabetes mellitus Hypertension Angina pectoris Heart disease Osteoporosis Social History marital status: number of children: 0 household members: spouse lives independently: Yes caregiver/support person: No housing: house pets and animals: Yes education level: other ([employer] degree) occupational status: other (Retired) 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: None travel history: other ([place] in past) 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) Smoking Status: Former smoker Tobacco: How many years used: 20 Smokeless tobacco user: other (Cigarettes) quit status: quit date established (1979) second hand exposure: No alcohol intake: current substance use type: does not use and marijuana (Back in the 60's) Exam <PAULO Shoemaker - Last Filed: 05/06/18 21:55> Initial Vital Signs Initial Vital Signs: Vital Signs Temperature 99.9 F H 05/06/18 18:16 Pulse Rate 86 05/06/18 18:16 Respiratory Rate 32 H 05/06/18 18:16 Blood Pressure 171/81 H 05/06/18 18:16 Pulse Oximetry 94 05/06/18 18:16 Const General: cooperative and well developed Nutritional Appearance: well nourished Orientation: alert, awake, oriented x3 and confused HENMT Mouth: oral mucosae normal and moist mucous membranes Throat: posterior oropharynx normal Eyes Conjunctivae: conjunctivae normal Sclera: sclerae normal Pupils: PERRL EOM: EOM intact bilaterally Resp Effort & Inspection: normal respiratory effort, able to speak in complete sentences, no respiratory distress and no use of accessory muscles Auscultation: no rales, no rhonchi and wheezes expiratory wheezes and upper bilaterally Cardio Rate: regular rate Rhythm: regular rhythm Heart Sounds: no click, no gallops, no murmurs and no rubs Pulses: normal peripheral pulses GI Inspection: non-distended Palpation: soft, no hepatosplenomegaly, No guarding, No pulsatile mass and No tender Auscultation: normal bowel sounds Skin General: no rashes or lesions noted, No jaundice and No petechiae Neuro General: alert, oriented x3, gait normal and no focal motor deficits Speech: speech normal <Rogelio Johnson MD - Last Filed: 05/07/18 02:45> Initial Vital Signs Initial Vital Signs: Vital Signs Temperature 99.9 F H 05/06/18 18:16 Pulse Rate 86 05/06/18 18:16 Respiratory Rate 32 H 05/06/18 18:16 Blood Pressure 171/81 H 05/06/18 18:16 Pulse Oximetry 94 05/06/18 18:16 Course <PAULO Shoemaker - Last Filed: 05/06/18 21:55> Orders Ordered: ED Orders 05/06/18 18:20 Chest [XR chest 1V] Stat 05/06/18 18:25 Basic Metabolic Panel Stat Bilirubin Total Stat Complete Blood Count AUTO DIFF Stat Influenza A and B by PCR Rapid Stat Lactate (Lactic Acid) Stat Partial Thromboplastin Time Stat Prothrombin Time INR Stat Troponin & CK Cardiac Panel Stat 05/06/18 18:26 EKG-12 Lead Stat 05/06/18 18:57 CT head/brain wo con Stat 05/06/18 19:11 Blood Culture Stat 05/06/18 21:16 Consult to Physician Routine Albuterol (Ventolin) 2.5 mg INH [id number] PRN PRN Reason: Shortness Of Breath Discontinued Medications Acetaminophen (Tylenol) 650 mg PO Q6HR PRN PRN Reason: As Needed for Fever/Mild Pain Hydrocodone Bitart/Acetaminophen (Stanton 5/325) 1 tab PO Q4HR PRN PRN Reason: Pain, Moderate (4-6) Albuterol/Ipratropium (Duoneb) 3 ml INH NOW ONE Stop: 05/06/18 19:58 Last Admin: 05/06/18 20:12 Dose: 3 ml Sodium Chloride (Normal Saline 0.9%) 1,000 mls @ 1,000 mls/hr IV BOLUS ONE Stop: 05/06/18 19:49 Last Infusion: 05/06/18 20:27 Dose: 0 mls/hr Admin: 05/06/18 18:51 Dose: 1,000 mls/hr Sodium Chloride (Normal Saline 0.9%) 1,000 mls @ 125 mls/hr IV CONT MARY Last Admin: 05/07/18 02:10 Dose: Not Given Ondansetron HCl (Zofran) 4 mg IV Q4HR PRN PRN Reason: Nausea And Vomiting Ondansetron HCl (Zofran) 4 mg IV NOW ONE Stop: 05/06/18 21:38 Last Admin: 05/06/18 21:38 Dose: 4 mg Oseltamivir Phosphate (Tamiflu) 75 mg PO NOW ONE Stop: 05/06/18 19:58 Last Admin: 05/06/18 20:24 Dose: 75 mg Potassium Chloride (Klor-Con M20) 20 meq PO NOW ONE Stop: 05/06/18 20:53 Last Admin: 05/07/18 00:20 Dose: Not Given Potassium Chloride (Klor-Con M20) 20 meq PO NOW ONE Stop: 05/06/18 23:46 Last Admin: 05/07/18 00:20 Dose: 20 meq Vital Signs - 8 hr 05/06/18 19:30 05/06/18 20:13 05/06/18 21:20 Temperature Pulse Rate 89 87 Respiratory Rate 24 22 Blood Pressure Blood Pressure [Right Arm] 180/81 H Pulse Oximetry 96 97 94 05/06/18 21:27 05/06/18 21:56 05/06/18 23:26 Temperature 97.7 F Pulse Rate 75 82 Respiratory Rate 31 H 16 Blood Pressure 166/70 H 149/78 H Blood Pressure [Right Arm] 168/68 H Pulse Oximetry 96 95 <Rogelio Johnson MD - Last Filed: 05/07/18 02:45> Orders Ordered: ED Orders 05/06/18 18:20 Chest [XR chest 1V] Stat 05/06/18 18:25 Basic Metabolic Panel Stat Bilirubin Total Stat Complete Blood Count AUTO DIFF Stat Influenza A and B by PCR Rapid Stat Lactate (Lactic Acid) Stat Partial Thromboplastin Time Stat Prothrombin Time INR Stat Troponin & CK Cardiac Panel Stat 05/06/18 18:26 EKG-12 Lead Stat 05/06/18 18:57 CT head/brain wo con Stat 05/06/18 19:11 Blood Culture Stat 05/06/18 21:16 Consult to Physician Routine Albuterol (Ventolin) 2.5 mg INH [id number] PRN PRN Reason: Shortness Of Breath Discontinued Medications Acetaminophen (Tylenol) 650 mg PO Q6HR PRN PRN Reason: As Needed for Fever/Mild Pain Hydrocodone Bitart/Acetaminophen (Stanton 5/325) 1 tab PO Q4HR PRN PRN Reason: Pain, Moderate (4-6) Albuterol/Ipratropium (Duoneb) 3 ml INH NOW ONE Stop: 05/06/18 19:58 Last Admin: 05/06/18 20:12 Dose: 3 ml Sodium Chloride (Normal Saline 0.9%) 1,000 mls @ 1,000 mls/hr IV BOLUS ONE Stop: 05/06/18 19:49 Last Infusion: 05/06/18 20:27 Dose: 0 mls/hr Admin: 05/06/18 18:51 Dose: 1,000 mls/hr Sodium Chloride (Normal Saline 0.9%) 1,000 mls @ 125 mls/hr IV CONT MARY Last Admin: 05/07/18 02:10 Dose: Not Given Ondansetron HCl (Zofran) 4 mg IV Q4HR PRN PRN Reason: Nausea And Vomiting Ondansetron HCl (Zofran) 4 mg IV NOW ONE Stop: 05/06/18 21:38 Last Admin: 05/06/18 21:38 Dose: 4 mg Oseltamivir Phosphate (Tamiflu) 75 mg PO NOW ONE Stop: 05/06/18 19:58 Last Admin: 05/06/18 20:24 Dose: 75 mg Potassium Chloride (Klor-Con M20) 20 meq PO NOW ONE Stop: 05/06/18 20:53 Last Admin: 05/07/18 00:20 Dose: Not Given Potassium Chloride (Klor-Con M20) 20 meq PO NOW ONE Stop: 05/06/18 23:46 Last Admin: 05/07/18 00:20 Dose: 20 meq Vital Signs - 8 hr 05/06/18 19:30 05/06/18 20:13 05/06/18 21:20 Temperature Pulse Rate 89 87 Respiratory Rate 24 22 Blood Pressure Blood Pressure [Right Arm] 180/81 H Pulse Oximetry 96 97 94 05/06/18 21:27 05/06/18 21:56 05/06/18 23:26 Temperature 97.7 F Pulse Rate 75 82 Respiratory Rate 31 H 16 Blood Pressure 166/70 H 149/78 H Blood Pressure [Right Arm] 168/68 H Pulse Oximetry 96 95 MDM - URI/Sore Throat <PAULO Shoemaker - Last Filed: 05/06/18 21:55> Lab Data Result diagrams: 05/06/18 18:25 05/06/18 18:25 Lab Results 05/06/18 05/06/18 05/06/18 Range/Units 18:25 18:25 18:25 WBC 9.8 (4.5-11.0) X10^3/uL RBC 4.31 L (4.5-5.9) X10^6/uL Hgb 14.5 (13.5-17.5) g/dL Hct 42.3 (41-53) % MCV 98.2 (80-100) fL MCH 33.6 (26-34) PG MCHC 34.2 (30-36) % RDW 13.6 (11.6-14.8) % Plt Count 206 (150-400) X10^3/uL Neut % (Auto) 82.8 H (50-75) % Lymph % (Auto) 7.1 L (25-40) % [place] % (Auto) 8.6 (3-14) % Eos % (Auto) 0.8 L (2-4) % Baso % (Auto) 0.7 (0-2) % Neut # (Auto) 8100 H (5993-8983) /uL Lymph # (Auto) 700 L (9201-5438) /uL [place] # (Auto) 800 (0-900) /uL Eos # (Auto) 100 (0-450) /uL Baso # (Auto) 100 (0-100) /uL PT 11.6 (10.1-12.7) SECONDS INR 1.0 (0.9-1.3) APTT 20 L (26.4-36.2) SECONDS Sodium (137-145) mmol/L Potassium (3.4-5.1) mmol/L Chloride (98-107) mmol/L Carbon Dioxide (22-32) mmol/L BUN (9-20) mg/dL Creatinine (0.66-1.25) mg/dL Estimated GFR (>60) mL/min BUN/Creatinine Ratio (6-22) Glucose (80-110) mg/dL Lactate (0.7-2.1) mmol/L Calcium (8.4-10.2) mg/dL Total Bilirubin (0.2-1.3) mg/dL Total Creatine Kinase (55-170) U/L CK-MB (CK-2) (<2.37) ng/mL CK-MB (CK-2) Rel Index (1.5-5.0) % Troponin I (0.01-0.034) ng/mL Influenza A & B (PCR) Positive, type a A (Negative) 05/06/18 05/06/18 05/06/18 Range/Units 18:25 18:25 18:25 WBC (4.5-11.0) X10^3/uL RBC (4.5-5.9) X10^6/uL Hgb (13.5-17.5) g/dL Hct (41-53) % MCV (80-100) fL MCH (26-34) PG MCHC (30-36) % RDW (11.6-14.8) % Plt Count (150-400) X10^3/uL Neut % (Auto) (50-75) % Lymph % (Auto) (25-40) % [place] % (Auto) (3-14) % Eos % (Auto) (2-4) % Baso % (Auto) (0-2) % Neut # (Auto) (1189-7683) /uL Lymph # (Auto) (1096-2360) /uL [place] # (Auto) (0-900) /uL Eos # (Auto) (0-450) /uL Baso # (Auto) (0-100) /uL PT (10.1-12.7) SECONDS INR (0.9-1.3) APTT (26.4-36.2) SECONDS Sodium 134 L (137-145) mmol/L Potassium 3.2 L (3.4-5.1) mmol/L Chloride 99 (98-107) mmol/L Carbon Dioxide 24 (22-32) mmol/L BUN 18 (9-20) mg/dL Creatinine 1.00 (0.66-1.25) mg/dL Estimated GFR > 60.0 (>60) mL/min BUN/Creatinine Ratio 18.0 (6-22) Glucose 207 H (80-110) mg/dL Lactate 1.9 (0.7-2.1) mmol/L Calcium 8.9 (8.4-10.2) mg/dL Total Bilirubin 1.1 (0.2-1.3) mg/dL Total Creatine Kinase 251 H (55-170) U/L CK-MB (CK-2) 0.87 (<2.37) ng/mL CK-MB (CK-2) Rel Index 0.3 L (1.5-5.0) % Troponin I 0.022 (0.01-0.034) ng/mL Influenza A & B (PCR) (Negative) Urine Dip Bedside Urine Glucose 250 mg/dl Bedside Urine Bilirubin + 1 Bedside Urine Ketone +/- 5 Urine Specific Edwards 1.030 Bedside Urine Occult Blood +++ Bedside Urine pH 5.5 Bedside Urine Protein ++ 100 Bedside Urine Urobilinogen - Negative Bedside Urine Nitrite - Negative Bedside Urine Leukocytes - Negative Esterase Imaging Data CT scan - head: Radiologist's impression: [place] [address] CT Scan Report Signed Patient: Kris Barbour R#: [id number] : 2Acct:[id number] Age/Sex: 77 / MDate of Service: 05/06/18 Loc: ED Accession Number: [id number] Procedure: CT head/brain wo con Ordering Provider: Carlos Samuel PROCEDURE: CT HEAD/BRAIN WO CON INDICATIONS: weakness feeling confused last few days TECHNIQUE: Noncontrast 4.5 mm thick angled axial sections acquired from the foramen magnum to the vertex, with coronal and sagittal reformats. For radiation dose reduction, the following was used: automated exposure control, adjustment of mA and/or kV according to patient size. COMPARISON: [facility], CT, HEAD WITHOUT CONTRAST, 01/21/2017, 11:10. FINDINGS: Image quality: Excellent. CSF spaces: Basal cisterns are patent. No extra-axial fluid collections. Jose Luis tricles are normal in size and shape. Brain: No midline shift. No intracranial masses or hemorrhage. No evidence acute stroke. White-white matter interface is normal. Age-related white loss and multiple vessels ischemic change. Skull and face: Calvarium and visualized facial bones are intact, without suspicious lesions. Sinuses: Visualized sinuses and mastoids are clear. IMPRESSION: 1. Age related finding loss and mild small vessel ischemic change. 2. Negative for acute stroke, hemorrhage, or mass. Dictated by: Angel Lira M.D. on 05/06/2018 at 19:12 Approved by: Angel Lira M.D. on 05/06/2018 at 19:13 Chest x-ray: Radiologist's impression: [address] [address] XRay Report Signed Patient: Kris Barbour RMR#: [id number] : 2Acct:[id number] Age/Sex: 77 / MDate of Service: 05/06/18 Loc: ED Accession Number: [id number] Procedure: XR chest 1V Ordering Provider: Carlos Samuel PROCEDURE: XR CHEST 1V INDICATIONS: cough/fever/confusion TECHNIQUE: One view of the chest was acquired. COMPARISON: [facility], CR, XR CHEST 1V, 07/14/2017, 10:44. FINDINGS: Surgical changes and devices: Remote CABG Lungs and pleura: Lungs are clear. No pleural effusions or pneumothorax. Mediastinum: Mediastinal contours appear normal. Heart size is normal. Bones and chest wall: No suspicious bony lesions. Overlying soft tissues appear unremarkable. IMPRESSION: No evidence acute pulmonary process. Dictated by: Angel Lira M.D. on 05/06/2018 at 19:10 Approved by: Angel Lira M.D. on 05/06/2018 at 19:11 ECG Data Interpretation: EKG shows sinus rhythm with no ST elevation or depression ventricular rate is 83. pr interval is 182. QRS duration is 133. QTC of 434. EKG shows right bundle branch block. T-waves are inverted on V2 V3 V5 and V6. EKG is consistent with prior EKGs MDM Narrative Medical decision making narrative: Chest x-ray was obtained was negative for any acute findings. CT of the head was also obtained was also negative for any acute findings. CBC shows elevated neutrophils otherwise is unremarkable. Chem panel was obtained and shows mild hyponatremia at 1:34 a.m. and hypokalemia at 3.2 otherwise is unremarkable. Cardiac enzymes were obtained and were negative. After fluids patient felt much better. He was much clearer mentally as well. Influenza swab was obtained and was positive. Patient is unable to ambulate at the current time frame without desatting and with weakness so he is admitted to observation for hydration and further evaluation. Tamiflu was given in the emergency room. He was also given 20 mEq of potassium. discussed case with Dr. Nolan. hospitalist who accepted patient. Patient is admitted to observation. <Rogelio Johnson MD - Last Filed: 05/07/18 02:45> Lab Data Lab Results 05/06/18 05/06/18 05/06/18 Range/Units 18:25 18:25 18:25 WBC 9.8 (4.5-11.0) X10^3/uL RBC 4.31 L (4.5-5.9) X10^6/uL Hgb 14.5 (13.5-17.5) g/dL Hct 42.3 (41-53) % MCV 98.2 (80-100) fL MCH 33.6 (26-34) PG MCHC 34.2 (30-36) % RDW 13.6 (11.6-14.8) % Plt Count 206 (150-400) X10^3/uL Neut % (Auto) 82.8 H (50-75) % Lymph % (Auto) 7.1 L (25-40) % [place] % (Auto) 8.6 (3-14) % Eos % (Auto) 0.8 L (2-4) % Baso % (Auto) 0.7 (0-2) % Neut # (Auto) 8100 H (6182-4666) /uL Lymph # (Auto) 700 L (0371-6662) /uL [place] # (Auto) 800 (0-900) /uL Eos # (Auto) 100 (0-450) /uL Baso # (Auto) 100 (0-100) /uL PT 11.6 (10.1-12.7) SECONDS INR 1.0 (0.9-1.3) APTT 20 L (26.4-36.2) SECONDS Sodium (137-145) mmol/L Potassium (3.4-5.1) mmol/L Chloride (98-107) mmol/L Carbon Dioxide (22-32) mmol/L BUN (9-20) mg/dL Creatinine (0.66-1.25) mg/dL Estimated GFR (>60) mL/min BUN/Creatinine Ratio (6-22) Glucose (80-110) mg/dL Lactate (0.7-2.1) mmol/L Calcium (8.4-10.2) mg/dL Total Bilirubin (0.2-1.3) mg/dL Total Creatine Kinase (55-170) U/L CK-MB (CK-2) (<2.37) ng/mL CK-MB (CK-2) Rel Index (1.5-5.0) % Troponin I (0.01-0.034) ng/mL Influenza A & B (PCR) Positive, type a A (Negative) 05/06/18 05/06/18 05/06/18 Range/Units 18:25 18:25 18:25 WBC (4.5-11.0) X10^3/uL RBC (4.5-5.9) X10^6/uL Hgb (13.5-17.5) g/dL Hct (41-53) % MCV (80-100) fL MCH (26-34) PG MCHC (30-36) % RDW (11.6-14.8) % Plt Count (150-400) X10^3/uL Neut % (Auto) (50-75) % Lymph % (Auto) (25-40) % [place] % (Auto) (3-14) % Eos % (Auto) (2-4) % Baso % (Auto) (0-2) % Neut # (Auto) (1654-1856) /uL Lymph # (Auto) (7544-0060) /uL [place] # (Auto) (0-900) /uL Eos # (Auto) (0-450) /uL Baso # (Auto) (0-100) /uL PT (10.1-12.7) SECONDS INR (0.9-1.3) APTT (26.4-36.2) SECONDS Sodium 134 L (137-145) mmol/L Potassium 3.2 L (3.4-5.1) mmol/L Chloride 99 (98-107) mmol/L Carbon Dioxide 24 (22-32) mmol/L BUN 18 (9-20) mg/dL Creatinine 1.00 (0.66-1.25) mg/dL Estimated GFR > 60.0 (>60) mL/min BUN/Creatinine Ratio 18.0 (6-22) Glucose 207 H (80-110) mg/dL Lactate 1.9 (0.7-2.1) mmol/L Calcium 8.9 (8.4-10.2) mg/dL Total Bilirubin 1.1 (0.2-1.3) mg/dL Total Creatine Kinase 251 H (55-170) U/L CK-MB (CK-2) 0.87 (<2.37) ng/mL CK-MB (CK-2) Rel Index 0.3 L (1.5-5.0) % Troponin I 0.022 (0.01-0.034) ng/mL Influenza A & B (PCR) (Negative) Urine Dip Bedside Urine Glucose 250 mg/dl Bedside Urine Bilirubin + 1 Bedside Urine Ketone +/- 5 Urine Specific Edwards 1.030 Bedside Urine Occult Blood +++ Bedside Urine pH 5.5 Bedside Urine Protein ++ 100 Bedside Urine Urobilinogen - Negative Bedside Urine Nitrite - Negative Bedside Urine Leukocytes - Negative Esterase Discharge Plan Departure Patient Disposition: Admitted as Observation Clinical Impression: Influenza A Discharge Date/Time: 05/06/18 21:56 Interventions: ED Discharge Assessment Last Done: 05/06/18 21:56 Admit Date/Time: 05/06/18 21:27 Admit Provider: Saqib Nolan <Rogelio Johnson MD - Last Filed: 05/07/18 02:45> Cosign ED Attending Cosignature Attestation: I was present in the ER at the time this patient's care. I was available for verbal consultation or to see the patient directly if requested. I agree with the assessment and management plan.
[2018-05-06] MEDS: ONDANSETRON 4 MG/2 ML INJ IV (21:38)
[2018-05-07] VITALS (11 sets, daily range): BP systolic 130–143; BP diastolic 63–70; PULSE 54–72; RESP 17–24; TEMP 36.4–36.8; O2SAT 91–99
[2018-05-07] MEDS: POTASSIUM CHLORIDE 20 MEQ TAB PO ×4 (00:20→16:54)
[2018-05-07] MEDS: ALBUTEROL 2.5 MG/3 ML NEB (ADULT) INH (03:07)
[2018-05-07] MEDS: SODIUM CHLORIDE 0.9% FLUSH 10 ML IV ×2 (04:29→20:37)
--- NOTE | 2018-05-07 08:13 | P.HP_ITS ---
History of Present Illness Date Patient Seen: 05/07/18 Time Patient Seen: 08:03 Chief complaint: weakness w/ cough. Narrative: Patient admitted after presenting to the emergency department with increased weakness etc. Patient had been on a trip to [place] and returned on May 04. He began to have symptoms with increased weakness cough mild dyspnea generalized achiness beginning on May 05. He had subjective and objective fever to 100+. He became increasingly weak including weakness of his abdominal muscles legs etc. He was brought into the hospital via EMS after calling for assistance He seemed to be somewhat disoriented and confused although this improved significantly after IV fluids were administered In the emergency department he was found to have a bit of a left shift with his white blood cell count had a positive influenza a screen. Negative chest x-ray negative normal head CT. He was admitted for further treatment of presumed influenza pneumonia Patient History Medical History Type 2 diabetes mellitus without complication (Chronic 06/20/15) Mixed hyperlipidemia (Chronic) Essential hypertension (Chronic) Coronary artery disease involving [place] coronary artery of [place] heart without angina pectoris (Chronic 1995) Peripheral vascular disease (Chronic 2009) Benign prostatic hyperplasia with urinary obstruction (Chronic 03/25/15) Polymyalgia rheumatica (Chronic 08/30/15) Primary osteoarthritis of both hips (Chronic 08/30/15) Gilbert's syndrome (Chronic) Kidney stones (Chronic 1984) Chronic back pain (Chronic 1989) Shoulder pain (Chronic 2011) Hayfever (Chronic 1999) Chicken pox (Resolved) Femur fracture (Resolved 1965) Fracture (Resolved 1951) Hepatitis A (Resolved 1963) Measles (Resolved) Melanoma (Resolved 1987) Mumps (Resolved) Surgical History History of orthopedic surgery (Resolved 1965) Status post appendectomy (Resolved 1956) Status post coronary artery bypass graft (Resolved 1995) Family History Father Colon cancer Prostate enlargement Bladder cancer History of hip surgery Pneumonia History of prostate surgery Mother Diabetes mellitus Heart disease Hypertension High cholesterol Osteoporosis History of cataract surgery H/O heart bypass surgery Arthritis Grandfather Arthritis Prostate cancer Colon cancer Deaf Legally blind Grandmother Diabetes mellitus Hypertension Angina pectoris Heart disease Osteoporosis Social History marital status: number of children: 0 household members: spouse lives independently: Yes caregiver/support person: No housing: house pets and animals: Yes education level: other ([employer] degree) occupational status: other (Retired) 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: None travel history: other ([place] in past) leisure activities: other (Golfing) Smoking Status: Former smoker Tobacco: How many years used: 20 Smokeless tobacco user: other (Cigarettes) quit status: quit date established (1979) second hand exposure: No alcohol intake: current substance use type: does not use and marijuana (Back in the 60's) Family & Social History Family History Father Colon cancer Prostate enlargement Bladder cancer History of hip surgery Pneumonia History of prostate surgery Mother Diabetes mellitus Heart disease Hypertension High cholesterol Osteoporosis History of cataract surgery H/O heart bypass surgery Arthritis Grandfather Arthritis Prostate cancer Colon cancer Deaf Legally blind Grandmother Diabetes mellitus Hypertension Angina pectoris Heart disease Osteoporosis Social History: household members spouse Prior Living Arrangements House lives independently Yes caregiver/support person No Safety & Behavioral: Feels Safe in Current Yes Environment Been Physically Hurt or No Threatened By a Person Suicidal Ideation Description None Suicide Plan Description No Plan Tobacco & Substance use: Smoking Status Former smoker alcohol intake current alcohol intake frequency 0-2 drinks per day Substance Use Type does not use Meds Home Medications Medication Instructions Recorded Confirmed Type carvedilol [Coreg] 12.5 mg PO BID #0 03/09/11 05/06/18 History atorvastatin [Lipitor] 40 mg PO HS #0 04/06/11 05/06/18 History clotrimazole-betamethasone 1 suly TP TID #45 gm 09/25/16 05/06/18 Rx tamsulosin [Flomax] 0.4 mg PO BID #180 tab 04/10/17 05/06/18 Rx triamcinolone acetonide 0.1 % 1 applictn TOP QID #453.6 gram 07/12/17 05/06/18 Rx topical cream ysmovosleck-[id number] serr 1 tab PO QAM 07/14/17 05/06/18 History [Glucosamine Daily Complex] multivitamin 1 tab PO DAILY 07/14/17 02/14/18 History clindamycin HCl 150 mg capsule 150 mg PO TID 07/22/17 05/06/18 History fexofenadine 180 mg tablet 180 mg PO DAILY 07/22/17 05/06/18 History glipizide ER 10 mg tablet, 10 mg PO DAILY #60 tab 07/22/17 05/06/18 Rx extended release 24 hr lactobacillus rhamnosus R0011 20 1 cell PO DAILY cap 07/22/17 05/06/18 History billion cell capsule oxybutynin chloride ER 5 mg 5 mg PO DAILY 07/22/17 05/06/18 History tablet,extended release 24 hr coenzyme Q10 100 mg/mL oral liquid 100 mg PO DAILY ml 10/14/17 05/06/18 History hydrochlorothiazide 25 mg PO QDAY #60 tab 01/06/18 05/06/18 Rx ticagrelor 60 mg tablet 60 mg PO DAILY 30 Days #60 tab 02/14/18 History famotidine 20 mg tablet 20 mg PO BID #60 tab 02/17/18 05/06/18 Rx sertraline 50 mg PO QDAY #90 tab 02/27/18 05/06/18 Rx metformin 1,000 mg PO BIDCC #90 tab 04/02/18 05/06/18 Rx True Metrix Glucose Test Strip 05/06/18 05/06/18 History Allergies Allergy/AdvReac Type Severity Reaction Status Date / Time clopidogrel [From Plavix] Allergy Intermediate Hives. Verified 02/14/18 11:49 Penicillins Allergy Intermediate HIVES Verified 02/14/18 12:07 amoxicillin AdvReac Mild Hives Verified 02/14/18 11:44 Review of Systems Constitutional Constitutional: Denies excessive sweating, Reports fever(s), Reports headache(s), Reports lack of energy, Reports malaise, Reports poor appetite, Reports weakness, Denies weight gain and Denies weight loss Eyes Eyes: Denies change in vision, Denies itchy eyes, Denies loss of vision and Denies other visual disturbances ENT Ears, Nose, Mouth, and Throat: No difficulty swallowing, Yes headache(s) and No neck pain Cardiovascular Cardiovascular: Denies chest pain, Reports fainting, Denies fast heart rate, Denies irregular heart rhythm, Denies rapid, pounding, or irregular heartbeat, Reports shortness of breath, Reports shortness of breath with activity and Denies slow heart rate Respiratory Respiratory: Reports chest congestion, Reports cough, Denies hemoptysis, Reports pain with cough, Reports dyspnea, Reports dyspnea on exertion and Reports wheezing Gastrointestinal Gastrointestinal: Denies abdominal pain, Denies bloating, Denies change in bowel habits, Denies change in stool character, Denies dysphagia, Denies nausea, Denies vomiting and Denies hematemesis Genitourinary Genitourinary: Denies hematuria, Denies difficulty urinating and Denies urinary frequency Musculoskeletal Musculoskeletal: Denies abnormal gait, Reports myalgias, Denies arthralgias, Denies limited range of motion, Reports muscle weakness and Denies neck pain Integumentary/Breasts Skin/Breast: Denies bleeding lesions, Denies change in pigmentation, Denies changing lesions, Denies new lesions, Denies rash, Denies skin swelling, Denies sores and Denies jaundice Neurologic Neurologic: Denies abnormal gait, Denies behavioral changes, Reports syncope, Reports headache(s), Denies loss of vision, Denies memory loss and Reports weakness Psychiatric Psychiatric: Denies behavioral changes, Denies change in appetite, Denies difficulty concentrating, Denies auditory hallucinations, Denies memory loss, Denies mood swings and Denies suicidal ideation Endocrine Endocrine: Denies excessive sweating and Denies palpitations Hematologic/Lymphatic Hematologic/Lymphatic: Denies easy bleeding, Denies easy bruising and Denies lymphadenopathy Allergic/Immunologic Allergic/Immunologic: Denies itchy eyes and Reports wheezing Exam Vital Signs (past 8 hours): - 05/07/18 03:07 05/07/18 03:26 Temperature 98.3 F Pulse Rate 72 Respiratory Rate 17 Blood Pressure 142/63 H Pulse Oximetry 96 96 Oxygen Delivery Method Nasal Cannula Oxygen Flow Rate 2 Const General: cooperative, healthy appearing, comfortable, well developed and well groomed Nutritional Appearance: well nourished Orientation: alert, awake and oriented x3 HENMT Head: normocephalic, atraumatic, No cyanosis of lips/distal nose, No raccoon eyes and No periorbital ecchymosis Ears: hearing grossly normal bilaterally and external ears normal Nose: external nose normal and nares normal Face and sinus: normal facial exam and face symmetric Mouth: oral mucosae normal, lip normal and tongue normal Eyes Alignment and Position: alignment normal Periorbital: periorbital findings normal Eyelids: eyelids normal Conjunctivae: conjunctivae normal Sclera: sclerae normal Cornea: corneas normal Pupils: PERRL EOM: EOM intact bilaterally Neck Neck: normal visual inspection, full ROM, trachea midline and No anterior neck swelling Thyroid: not diffusely enlarged Carotids: normal carotid upstroke Lymphatic: No lymphadenopathy Chest Chest: normal inspection of the chest, No crepitus and No tenderness Breast inspection: normal inspection of the breasts Resp Effort & Inspection: able to speak in complete sentences, audible wheezes, cough, no retractions and not tachypneic Auscultation: no rales, no rhonchi, wheezes and no rubs Percussion: percussion normal Tactile Fremitus: tactile fremitus absent Cardio Palpation: normal PMI Rate: regular rate Rhythm: regular rhythm Heart Sounds: S1 normal, S2 normal and normal, physiologic split S2 Bruits: no carotid bruits Pulses: brachial pulses present and radial pulses present GI Inspection: normal to inspection Palpation: soft and no hepatosplenomegaly Percussion: normal to percussion Auscultation: normal bowel sounds Back/Spine/Pelvis Back: No CVA tenderness Cervical Spine: normal cervical lordosis Thoracic/Lumbar Spine: thoracic and lumbar spine normal to inspection Skin General: no rashes or lesions noted, No excoriations, No induration, No jaundice, No mottling and No petechiae Lesions: no lesions (no worrisome/abl lesions) Rashes: no rashes Trauma: no lacerations or abrasions Wounds: no wounds Hair: normal Neuro General: alert, awake, oriented x3, tone normal and normal light touch, pain and propioception Cranial Nerves: CN's II-XI intact bilaterally Cognition: normal cognition Speech: speech normal Motor: muscle tone normal throughout Sensory Exam: no sensory deficits noted DTR's: Rt Biceps: 2+, Lt Biceps: 2+, Rt Brachioradialis: 2+, Lt Brachioradialis: 2+, Rt Patellar: 2+ and Lt Patellar: 2+ Extrem General: normal to inspection, no clubbing, cyanosis or edema and No calf tenderness Right upper extremity: normal to inspection Left upper extremity: normal to inspection Right lower extremity: normal to inspection Left lower extremity: normal to inspection Psych Appearance: grossly normal Mental Status: mental status grossly normal Speech and Movement: speech and movement normal and speech clear Mood: congruent mood Affect: normal affect Attitude: cooperative Thought Process: normal Thought Content: normal Judgment: judgment good Objective Imaging Chest x-ray: Radiologist's impression: PROCEDURE: XR CHEST 1V INDICATIONS: cough/fever/confusion TECHNIQUE: One view of the chest was acquired. COMPARISON: [facility], CR, XR CHEST 1V, 07/14/2017, 10:44. FINDINGS: Surgical changes and devices: Remote CABG Lungs and pleura: Lungs are clear. No pleural effusions or pneumothorax. Mediastinum: Mediastinal contours appear normal. Heart size is normal. Bones and chest wall: No suspicious bony lesions. Overlying soft tissues appear unremarkable. IMPRESSION: No evidence acute pulmonary process CT scan - head: Radiologist's impression: PROCEDURE: CT HEAD/BRAIN WO CON INDICATIONS: weakness feeling confused last few days TECHNIQUE: Noncontrast 4.5 mm thick angled axial sections acquired from the foramen magnum to the vertex, with coronal and sagittal reformats. For radiation dose reduction, the following was used: automated exposure control, adjustment of mA and/or kV according to patient size. COMPARISON: [facility], CT, HEAD WITHOUT CONTRAST, 01/21/2017, 11:10. FINDINGS: Image quality: Excellent. CSF spaces: Basal cisterns are patent. No extra-axial fluid collections. Jose Luis tricles are normal in size and shape. Brain: No midline shift. No intracranial masses or hemorrhage. No evidence acute stroke. White-white matter interface is normal. Age-related white loss and multiple vessels ischemic change. Skull and face: Calvarium and visualized facial bones are intact, without suspicious lesions. Sinuses: Visualized sinuses and mastoids are clear. IMPRESSION: 1. Age related finding loss and mild small vessel ischemic change. 2. Negative for acute stroke, hemorrhage, or mass. Labs Result Diagrams: 05/06/18 18:25 05/06/18 18:25 Labs: Laboratory Results - last 24 hr 05/06/18 05/06/18 05/06/18 18:25 18:25 18:25 WBC 9.8 RBC 4.31 L Hgb 14.5 Hct 42.3 MCV 98.2 MCH 33.6 MCHC 34.2 RDW 13.6 Plt Count 206 Neut % (Auto) 82.8 H Lymph % (Auto) 7.1 L [place] % (Auto) 8.6 Eos % (Auto) 0.8 L Baso % (Auto) 0.7 Neut # (Auto) 8100 H Lymph # (Auto) 700 L [place] # (Auto) 800 Eos # (Auto) 100 Baso # (Auto) 100 PT 11.6 INR 1.0 APTT 20 L Sodium Potassium Chloride Carbon Dioxide BUN Creatinine Estimated GFR BUN/Creatinine Ratio Glucose Lactate Calcium Total Bilirubin Total Creatine Kinase CK-MB (CK-2) CK-MB (CK-2) Rel Index Troponin I Influenza A & B (PCR) Positive, type a A 05/06/18 05/06/18 05/06/18 18:25 18:25 18:25 WBC RBC Hgb Hct MCV MCH MCHC RDW Plt Count Neut % (Auto) Lymph % (Auto) [place] % (Auto) Eos % (Auto) Baso % (Auto) Neut # (Auto) Lymph # (Auto) [place] # (Auto) Eos # (Auto) Baso # (Auto) PT INR APTT Sodium 134 L Potassium 3.2 L Chloride 99 Carbon Dioxide 24 BUN 18 Creatinine 1.00 Estimated GFR > 60.0 BUN/Creatinine Ratio 18.0 Glucose 207 H Lactate 1.9 Calcium 8.9 Total Bilirubin 1.1 Total Creatine Kinase 251 H CK-MB (CK-2) 0.87 CK-MB (CK-2) Rel Index 0.3 L Troponin I 0.022 Influenza A & B (PCR) Assessment & Plan Assessment & Plan narrative: 1. Influenza -patient with symptoms of pneumonia with some evidence of obstructive lung changes with wheezing and dyspnea etc. He is modestly hypoxic as well as specially with activity. Continue with fluid replacement for his influenza syndrome but also will use some IV steroids to help with the obstructive lung component and oxygen as necessary to correct hypoxia. Tylenol as needed for fever and muscle aches pains. Continue with Tamiflu course as well. 2. diabetes -continue patient's usual oral meds. The IV steroids will of course increased his blood sugars and will follow this and treat with supplemental doses of insulin 3. coronary disease -continue patient's usual meds including his anti-platelet therapy. He had a severe reaction to Plavix previously so as an alternative anti-platelet agent in addition to his other meds. That should be continued 4. BPH- patient with issues with urinary obstruction. Continue usual meds and monitor urine output. 5. Weakness -have Physical therapy see him. Weakness almost certainly secondary to his viral syndrome 6. VTE prophylaxis- Lovenox will be employed 7. Code status- patient does have an advanced directive but wishes to be full code full resuscitation for the purposes of this hospitalization which is entirely appropriate. Overall patient quite ill as patients usually are with influenza. He has multiple comorbidities contributing to his overall illness. Hopefully however with symptomatic treatment and IV fluids etc he will be improved enough to return home the next 24-48 hours. Quality VTE Deep Vein Thrombosis/Pulmonary Embolism Present on Admission: No
[2018-05-07] MEDS: TAMSULOSIN 0.4 MG CAPSULE PO ×2 (09:33→20:36)
[2018-05-07] MEDS: ENOXAPARIN 40 MG/0.4 ML SYRINGE SUBCUT (09:33)
[2018-05-07] MEDS: METFORMIN HCL 500 MG TABLET 1000 MG PO ×2 (09:33→16:54)
[2018-05-07] MEDS: glipiZIDE XL 5 MG TAB 10 MG PO (09:33)
[2018-05-07] MEDS: MULTIVITAMIN 1 TABLET 1 TAB PO (09:34)
[2018-05-07] MEDS: OSELTAMIVIR 75 MG CAPSULE PO ×2 (09:34→20:36)
[2018-05-07] MEDS: SERTRALINE 50 MG TABLET PO (09:34)
[2018-05-07] MEDS: LORATADINE 10 MG TABLET PO (09:34)
[2018-05-07] MEDS: OXYBUTYNIN 5 MG ER TAB PO (09:34)
[2018-05-07] MEDS: CARVEDILOL 12.5 MG TABLET PO ×2 (09:35→20:35)
[2018-05-07] MEDS: ACETAMINOPHEN 325 MG TABLET 650 MG PO (09:36)
--- NOTE | 2018-05-07 11:29 | CM.DANOTE ---
DCP: Case received, EMR reviewed. Information regarding patient obtained by , Vicky. DCP template completed with information currently available. Patient is a 77 year old male who admitted yesterday evening to the care of the hospitalist team. PCP: Dr. Nolan. Payer: confirmed: Medicare/[facility]. Patient came to hospital via ambulance due to symptoms of coughing, as well as chest discomfort. Patient holes diagnosis of Influenza A. Patient in isolation at this time, but had conversation with wire, Vicky, over phone. She stated that he is active and plays golf as well. He uses no DME supplies, and drives. She will be coming to see patient this morning. P: DCP to follow, and note his progress while here in hospital. Should be able to go home when he is medically stable. Neyda Garcia RN/News Writer
[2018-05-07] MEDS: INSULIN ASPART 100 UNIT/ML INSULN PEN SUBCUT ×3 (12:49→21:33)
--- NOTE | 2018-05-07 15:28 | PT.IIE ---
Surgical History (Last Reviewed 05/07/18 @ 08:13 by Matt Medina MD) History of orthopedic surgery (Resolved 1965) Status post appendectomy (Resolved 1956) Status post coronary artery bypass graft (Resolved 1995) Medical History (Last Reviewed 05/07/18 @ 08:13 by Matt Medina MD) Type 2 diabetes mellitus without complication (Chronic 06/20/15) Mixed hyperlipidemia (Chronic) Essential hypertension (Chronic) Coronary artery disease involving [place] coronary artery of [place] heart without angina pectoris (Chronic 1995) Peripheral vascular disease (Chronic 2009) Benign prostatic hyperplasia with urinary obstruction (Chronic 03/25/15) Polymyalgia rheumatica (Chronic 08/30/15) Primary osteoarthritis of both hips (Chronic 08/30/15) Gilbert's syndrome (Chronic) Kidney stones (Chronic 1984) Chronic back pain (Chronic 1989) Shoulder pain (Chronic 2011) Hayfever (Chronic 1999) Chicken pox (Resolved) Femur fracture (Resolved 1965) Fracture (Resolved 1951) Hepatitis A (Resolved 1963) Measles (Resolved) Melanoma (Resolved 1987) Mumps (Resolved) Physical Therapy Inpatient Evaluation/Re-Eval M1 PT/OT-IP Prior Functional Status Start: 05/07/18 17:19 Freq: NEEDED Status: Active Protocol: Document 05/07/18 15:28 AB (Rec: 05/07/18 17:31 AB [id number]) Medical Review Prior Functional Status Medical History Reviewed Yes Communication able to make needs known Mobility and Gait pt stated that he is independent with all mobilities and ambulation without AD Social History Household Members spouse Living Arrangements House Number of Floors (Floors) One Floor Number of Stairs To Enter/Railing? 1 step entry Home Environment Standard Height Toilet Walk in Shower Home Equipment Straight Cane Shower Seat with Backrest Hand Held Shower Grab Bars In Shower Employment Status Retired Additional Social History Comment able to walk ~ 1 mile daily M2 PT-IP Current Condition Start: 05/07/18 17:19 Freq: NEEDED Status: Active Protocol: Document 05/07/18 15:28 AB (Rec: 05/07/18 17:31 AB [id number]) Physical Therapy Current Condition Current Condition Evaluation Date 05/07/18 Treatment Diagnosis Influenza A; difficulty in walking Onset Date 05/06/18 Precautions Other Precautions droplet precautions M3 PT-IP Subjective Start: 05/07/18 17:19 Freq: NEEDED Status: Active Protocol: Document 05/07/18 15:28 AB (Rec: 05/07/18 17:31 AB [id number]) Subjective Physical Therapy Visit Type Type Initial Evaluation Visit Start Time 15:28 Visit Stop Time 16:02 Total Visit Minutes 34 Number of [employer] DEVELOPER Visits 0 Physical Therapy Visit Comments Patient Comments pt agreeable to do PT Therapy Pain Assessment Pain When Pain Assessed At Rest Pain Present Pain Present Pain Reported Location Right Hip Intensity 3 Scale Used Numeric (1 - 10) Description Chronic M4 PT-IP Mobility and Gait Start: 05/07/18 17:19 Freq: NEEDED Status: Active Protocol: Document 05/07/18 15:28 AB (Rec: 05/07/18 17:31 AB [id number]) PT-Bed Mobility Assessment Supine to Sit Supine to Sit Maximum Assistance 1 Person Assistance Sit to Supine Sit to Supine Standby Assistance PT-Transfer Assessment Sit to and From Stand Sit to and from Stand Contact Guard Assistance 1 Person Assistance Equipment Transfer Assistive Device Gait Belt Front Wheeled Walker Orthotic/Prosthetic Devices or Brace: No Gait Assessment Gait Gait Assistance Required: Contact Guard Assist Distance (Feet) 30 Able to Maintain Weight Bearing Status Yes During Gait Assistive Devices Assistive Device Gait Belt Front Wheeled Walker Orthotic/Prosthetic Devices or Brace: No Gait Deviations General Gait Pattern Antalgic Decreased Stride Length Decreased Feet Clearance Wide Based Gait Factors Limiting Gait Function Factors Limiting Gait Function Decreased Activity Tolerance Decreased Strength Limited Range of Motion Pain Poor Balance Poor Safety Awareness Comments Gait Comments pt ambulated using FWW ~ 30 ft requirng CGA and cues. assessed ambulation without AD and pt completed ~ 15 ft requiring min A and cues. PT-Balance Assessment Sitting Balance and Reactions Static Sitting Balance Ability Good Dynamic Sitting Balance Ability Good Standing Balance and Reactions Static Standing Balance Ability Fair Dynamic Standing Balance Ability Fair Device Used using FWW M5 PT-IP Objective Assessments Start: 05/07/18 17:19 Freq: NEEDED Status: Active Protocol: Document 05/07/18 15:28 AB (Rec: 05/07/18 17:31 AB [id number]) Orientation Orientation/Cognition Level of Alertness Alert Orientation Name Place Situation Strength Lower Extremity Strength Assessment Within Functional Limits M6 PT-IP Treatment Start: 05/07/18 17:19 Freq: NEEDED Status: Active Protocol: Document 03/06/19 15:28 AB (Rec: 05/07/18 17:31 AB [id number]) Physical Therapy Treatment Education Education Provided Safety M7 PT-IP Assessment and Plan Start: 05/07/18 17:19 Freq: NEEDED Status: Active Protocol: Document 05/07/18 15:28 AB (Rec: 05/07/18 17:31 AB [id number]) PT Summary Assessment and Plan Potential Rehabilitation Potential Fair Status of Condition at Evaluation Evolving Summary Impairments Pain ROM Strength Balance Tone Cognition Bed Mobility Transfers Gait Activity Tolerance Assessment Summary pt requiring max A with bed mobility supine to sit and CGA with ambulation using FWW. pt needing to use FWW at this time for stability and safety. will continue to progress pt with ambulation using least restrictive device/without AD. pt will likely progressing in mobility during hospital stay. Goals Bed Mobility Goal Independent Transfer Goal Independent Cane Front Wheeled Walker Gait Goal Independent Cane Front Wheel Walker Gait Distance 150 Other Goals up/down 1 step using FWW/SPC/ without AD Days to Meet Goals 5 Frequency of Treatment Frequency Of Treatment Once a Day Treatment Plan Physical Therapy Treatment Plan Bed Mobility Training Transfer Training Gait Training Therapeutic Exercise Balance Retraining Post Op Education Discharge Planning Hot or Cold Pack Neuromuscular Re-ed Coordination Retraining Manual Therapy Other Recommendations and Next Treatment ambulation; stair climbing Focus Recommendations To Nursing Amount of Assist Needed 1 Person Assist Discharge Recommendations PT Discharge Recommendations Home with Assistance Equipment Needed for Home Before FWW: spouse will try to borrow Discharge one
--- NOTE | 2018-05-07 18:36 | PC.NURSE ---
Addendum entered by Nicole Olvera R.N. 05/07/18 21:39: Placed on RA, O2 sa 96% while asleep. NO increased WOB. Original Note: Chantal shift note: Awake, alert, and pleasant. Breathing effort improved from day of admission. States breathing effort is much improved. Speaks in full sentences. Excellent appetite and PO intake. Voiding and BM this shift. Intermittent productive cough noted, SOB with exertion. Ambulated in room with FWW, states feels much stronger, however still requires staff assist. Fall risk precautions maintained. Call light within reach. at bedside providing supportive care.
[2018-05-07] MEDS: ATORVASTATIN 20 MG TABLET 40 MG PO (20:34)
[2018-05-08] VITALS (10 sets, daily range): BP systolic 137–152; BP diastolic 66–81; PULSE 49–62; RESP 16–20; TEMP 36.2–36.6; O2SAT 94–98
[2018-05-08] MEDS: ACETAMINOPHEN 325 MG TABLET 650 MG PO (02:25)
[2018-05-08 06:34] LABS: BUN Creatinine Ratio 19.1 (6-22); Blood Urea Nitrogen 21 mg/dL (9-20); Calcium 8.8 mg/dL (8.4-10.2); Carbon Dioxide 25 mmol/L (22-32); Chloride 102 mmol/L (98-107); Estimated Glomerular Filt Rate > 60.0 mL/min (>60); Glucose 284 mg/dL (80-110); HEMOLYSIS < 15 (0-50); Potassium 4.1 mmol/L (3.4-5.1); Sodium 138 mmol/L (137-145)
--- NOTE | 2018-05-08 09:02 | P.PN_ITS ---
Subjective Date Patient Seen: 05/08/18 Time Patient Seen: 09:00 Interval history: Patient feeling much better. Really has no complaints issues or problems this morning. Was up with physical therapy definitely feels stronger. Coughing but coughing last actually. He looks like he feels better. Patient's blood sugar very poorly controlled yesterday, likely result of his IV steroids Exam Vital Signs (past 8 hours): - 05/08/18 06:15 Temperature 97.9 F Pulse Rate 52 L Respiratory Rate 16 Blood Pressure 146/79 H Pulse Oximetry 96 Oxygen Delivery Method Room Air Oxygen Flow Rate 0 Narrative Exam Narrative: Improved lung function with decreased wheezes and better breath sounds and less coughing with deep breathing, still no crackles Objective Labs Result Diagrams: 05/06/18 18:25 05/08/18 06:13 Labs: Laboratory Results - last 24 hr 05/08/18 06:13 Sodium 138 Potassium 4.1 Chloride 102 Carbon Dioxide 25 BUN 21 H Creatinine 1.10 Estimated GFR > 60.0 BUN/Creatinine Ratio 19.1 Glucose 284 H Calcium 8.8 Assessment & Plan Assessment & Plan narrative: 1. Influenza -continue with supportive treatment as well as Tamiflu. I am going to DC his IV steroids and switched to lower dose oral steroids given his rather quick dramatic improvement. 2. Diabetes -hopefully numbers will get better with less steroids on board. Will switch to a higher dosing regimen for coverage of his hyperglycemia 3. hypokalemia-resolved 4. Patient's other issues including his coronary disease etc seems stable Plan for him to probably be discharged home tomorrow. Note: Greater than 30 minutes was spent evaluating the patient on the floor, including examining the patient, discussing clinical course with clinical and nursing staff, reviewing clinical course in the computer, preparing documen tation and writing orders for continued management of care, discussing status with family as appropriate, reviewing plans for the next 24 hours with both patient/family and nursing staff as appropriate. Quality VTE Deep Vein Thrombosis/Pulmonary Embolism Present on Admission: No
[2018-05-08] MEDS: CARVEDILOL 12.5 MG TABLET PO ×2 (09:50→21:10)
[2018-05-08] MEDS: glipiZIDE XL 5 MG TAB 10 MG PO (09:50)
[2018-05-08] MEDS: ENOXAPARIN 40 MG/0.4 ML SYRINGE SUBCUT (09:50)
[2018-05-08] MEDS: METFORMIN HCL 500 MG TABLET 1000 MG PO ×2 (09:50→16:58)
[2018-05-08] MEDS: LACTOBACILLUS ACIDOPHILUS TABLET 1 EACH PO (09:50)
[2018-05-08] MEDS: LORATADINE 10 MG TABLET PO (09:50)
[2018-05-08] MEDS: OXYBUTYNIN 5 MG ER TAB PO (09:51)
[2018-05-08] MEDS: predniSONE 20 MG TABLET PO (09:51)
[2018-05-08] MEDS: TAMSULOSIN 0.4 MG CAPSULE PO ×2 (09:51→21:09)
[2018-05-08] MEDS: MULTIVITAMIN 1 TABLET 1 TAB PO (09:51)
[2018-05-08] MEDS: OSELTAMIVIR 75 MG CAPSULE PO ×2 (09:51→21:09)
[2018-05-08] MEDS: SERTRALINE 50 MG TABLET PO (09:51)
[2018-05-08] MEDS: INSULIN ASPART 100 UNIT/ML INSULN PEN SUBCUT ×3 (09:52→16:59)
[2018-05-08] MEDS: SODIUM CHLORIDE 0.9% FLUSH 10 ML IV ×2 (09:52→21:09)
--- NOTE | 2018-05-08 11:15 | PT.IPTN ---
Physical Therapy Treatment Note M2 PT-IP Current Condition Start: 05/07/18 17:19 Freq: NEEDED Status: Active Protocol: Document 05/07/18 15:28 AB (Rec: 05/07/18 17:31 AB [id number]) Physical Therapy Current Condition Current Condition Evaluation Date 05/07/18 Treatment Diagnosis Influenza A; difficulty in walking Onset Date 05/06/18 Precautions Other Precautions droplet precautions M3 PT-IP Subjective Start: 05/07/18 17:19 Freq: NEEDED Status: Active Protocol: Document 05/08/18 10:00 HH (Rec: 05/08/18 11:15 [email or web address]) Subjective Physical Therapy Visit Type Type Treatment Note Visit Start Time 10:00 Visit Stop Time 10:15 Total Visit Minutes 15 Number of TIRE AND TUBE REPAIRER Visits 0 Physical Therapy Visit Comments Patient Comments Pt agreeable to mobilize with PT Therapy Pain Assessment Pain Present Pain Present Denied Pain M4 PT-IP Mobility and Gait Start: 05/07/18 17:19 Freq: NEEDED Status: Active Protocol: Document 05/08/18 10:00 HH (Rec: 05/08/18 11:15 [email or web address]) PT-Transfer Assessment Sit to and From Stand Sit to and from Stand Standby Assistance Use of Upper Extremities Equipment Transfer Assistive Device None Gait Belt Orthotic/Prosthetic Devices or Brace: No Transfers Transfer Destination Bed Chair Transfer Technique Stand Step Pivot Transfer Ability Level of Assist Standby Assistance 1 Person Assistance Use of Upper Extremities Gait Assessment Gait Gait Assistance Required: Standby Assistance 1 Person Assist Distance (Feet) 500 Assistive Devices Assistive Device None Gait Belt Orthotic/Prosthetic Devices or Brace: No Gait Deviations General Gait Pattern Antalgic Decreased Stride Length Decreased Feet Clearance Wide Based Gait Factors Limiting Gait Function Factors Limiting Gait Function Decreased Activity Tolerance Decreased Strength Limited Range of Motion Pain Poor Balance Poor Safety Awareness Comments Gait Comments Pt amb approx 500 feet without AD and SBA today. Pt caught his L foot once but he was able to recover his balance immediately. No signs of acute distress. Stair Climbing Assessment Evaluation Level of Assist On Stairs Standby Assistance Devices Stair Climbing Assistive Devices Right Railing Technique/Endurance Stair Climbing Direction Ascend and Descend Stair Climbing Technique Step Over Step Number of Steps Climbed 3 Query Text: Stair Climbing Set # Repetitions (reps) 2 Comments Stair Climbing Comments steady and no acute distress PT-Balance Assessment Sitting Balance and Reactions Static Sitting Balance Ability Good Dynamic Sitting Balance Ability Good Functional Assessments Functional Tests 5 Times Sit to Stand 15 2 Minute Walk Test 260 M5 PT-IP Objective Assessments Start: 05/07/18 17:19 Freq: NEEDED Status: Active Protocol: Document 05/07/18 15:28 AB (Rec: 05/07/18 17:31 AB [id number]) Orientation Orientation/Cognition Level of Alertness Alert Orientation Name Place Situation Strength Lower Extremity Strength Assessment Within Functional Limits M6 PT-IP Treatment Start: 05/07/18 17:19 Freq: NEEDED Status: Active Protocol: Document 05/07/18 15:28 AB (Rec: 05/07/18 17:31 AB [id number]) Physical Therapy Treatment Education Education Provided Safety M7 PT-IP Assessment and Plan Start: 05/07/18 17:19 Freq: NEEDED Status: Active Protocol: Document 05/08/18 10:00 HH (Rec: 05/08/18 11:15 HH [email or web address]) PT Summary Assessment and Plan Potential Rehabilitation Potential Excellent Status of Condition at Evaluation Stable Summary Impairments Pain ROM Strength Balance Tone Cognition Bed Mobility Transfers Gait Activity Tolerance Progress Towards Goals Progressing Toward Goals Assessment Summary Pt improves in amb distance and reduced assistance needed for mobility. Pt did not use AD and able to amb 500 feet SBA. Pt also climbed 6 steps with R railing. 5 times STS = 15s and 2 mins walk = 260ft without AD. Pt will be safe to d/c home once his flu symptoms resolve. Goals Bed Mobility Goal Independent Transfer Goal Independent Gait Goal Independent Gait Distance 500 Other Goals up/down 1 step using FWW/SPC/ without AD Days to Meet Goals 2 Frequency of Treatment Frequency Of Treatment Once a Day Treatment Plan Physical Therapy Treatment Plan Bed Mobility Training Transfer Training Gait Training Therapeutic Exercise Balance Retraining Post Op Education Discharge Planning Hot or Cold Pack Neuromuscular Re-ed Coordination Retraining Manual Therapy Other Recommendations and Next Treatment ambulation; stair climbing Focus Recommendations To Nursing Amount of Assist Needed Standby Assistance Discharge Recommendations Equipment Needed for Home Before FWW: spouse will try to borrow Discharge one
--- NOTE | 2018-05-08 11:23 | CM.DPC ---
DCP Cont: According to Dr. Medina's notes, patient could discharge home tomorrow. When ADDING MACHINE SERVICER was in room with patient, had inquired upon getting a walker. Suggested that she ask P.T. Would need a doctor's order. Other option is [facility]. P: DCP to continue to follow closely. Patient could discharge home tomorrow. Neyda Garcia RN/[employer]
[2018-05-08] MEDS: ATORVASTATIN 20 MG TABLET 40 MG PO (21:08)
[2018-05-09] MEDS: ACETAMINOPHEN 325 MG TABLET 650 MG PO (00:43)
[2018-05-09 01:13] VITALS: O2SAT 98
[2018-05-09 06:00] VITALS: BP 137/66; PULSE 51; RESP 16; TEMP 37.2; O2SAT 97
--- NOTE | 2018-05-09 07:42 | P.DS_ITS ---
History of Present Illness Chief complaint: weakness w/ cough. Narrative: Patient admitted after presenting to the emergency department with increased weakness etc. Patient had been on a trip to [place] and returned on May 04. He began to have symptoms with increased weakness cough mild dyspnea generalized achiness beginning on May 05. He had subjective and objective fever to 100+. He became increasingly weak including weakness of his abdominal muscles legs etc. He was brought into the hospital via EMS after calling for assistance He seemed to be somewhat disoriented and confused although this improved significantly after IV fluids were administered In the emergency department he was found to have a bit of a left shift with his white blood cell count had a positive influenza a screen. Negative chest x-ray negative normal head CT. He was admitted for further treatment of presumed influenza pneumonia Discharge Providers Date of admission: 05/06/18 21:27 Discharge Date: 05/09/18 Primary care physician: Matt Medina MD Consults: 05/06/18 21:16 Consult to Physician Routine Comment: Consulting Provider: Saqib Nolan Reason for consultation: influenza Has provider been notified: Yes 05/07/18 07:59 Consult to Physical Therapy Evaluate & Treat Comment: Physician Instructions: Evaluate and Treat Discharge provider: Matt Medina MD Summary Discharge Diagnosis: 1. Influenza a viral infection 2. diabetes with poor control during this hospitalization 3. Reactive airway disease secondary to infection 1. Above 4. hypokalemia, resolved 5. BPH with LUTS 6. Coronary artery disease, not active during this hospitalization Hospital Course: patient was admitted from the emergency department after pres enting with weakness and tested positive for influenza A. He had some minor electrolyte abnormalities and evidence of some minor volume depletion. These were replaced with IV fluids and oral medications. Patient also showed evidence of pneumonia with increased work of breathing mild hypoxia and some wheezing. This were treated with treatment of his influenza with Tamiflu as well as initially some IV steroids then oral steroids that seemed to help significantly reverse his reactive airways component. Patient felt much better within the 1st 24 hr and was ready for discharge within the 1st 48 hr. He was able to be up and ambulate independently on day of discharge Patient's blood sugars were poorly controlled especially initially during this hospitalization. It was felt as though the IV steroids had a significant impact. He was much improved when switched to oral steroid and steroids will not be continued as an outpatient thus feeling as though his blood sugars will be much better controlled at home Overall as other medical issues including his BPH is coronary disease etc were stable during this hospitalization. Status at Discharge Cognitive/behavioral status at discharge: at baseline, oriented Functional status at discharge: independent ambulation Overall status at discharge: patient is progressing back to baseline Exam Vital Signs (past 8 hours): - 05/08/18 23:53 05/09/18 01:13 05/09/18 06:00 Temperature 97.8 F 98.9 F Pulse Rate 49 L 51 L Respiratory Rate 18 16 Blood Pressure 143/78 H 137/66 Pulse Oximetry 97 98 97 Oxygen Delivery Method Room Air Oxygen Flow Rate 0 Narrative Exam Narrative: HEENT-unremarkable, normocephalic atraumatic Neck-no lymphadenopathy no bruits Lungs-clear anteriorly and posteriorly no wheezes no crackles good breath sounds Heart-regular rate and rhythm, no murmur, rub, or gallop. normal S1-S2 Abdomen-positive bowel tones, soft, nontender, nondistended, no hepatosplenomegaly, no masses palpable Neuro-normal to screening exam, gait not tested Extremities-no cyanosis clubbing or edema Objective Labs Result Diagrams: 05/06/18 18:25 05/08/18 06:13 Discharge Plan Discharge Plan Patient Disposition: Home Discharge Med Rec/Prescriptions Prescriptions: New oseltamivir [Tamiflu] 75 mg Capsule 75 mg PO BID Qty: 5 RF: 0 Continued carvedilol [Coreg] 12.5 MG tablet 12.5 mg PO BID Qty: 0 RF: 0 atorvastatin [Lipitor] 40 MG tablet 40 mg PO HS Qty: 0 RF: 0 clotrimazole-betamethasone 15 GM cream 1 suly TP TID Qty: 45 RF: 3 tamsulosin [Flomax] 0.4 MG capsule,extended release 24hr 0.4 mg PO BID Qty: 180 RF: 3 hydrochlorothiazide 12.5 mg tablet 25 mg PO QDAY Qty: 60 RF: 3 famotidine 20 mg tablet 20 mg PO BID Qty: 60 RF: 3 sertraline 50 mg tablet 50 mg PO QDAY Qty: 90 RF: 1 metformin 1,000 mg tablet 1,000 mg PO BIDCC Qty: 90 RF: 3 coenzyme Q10 100 mg/mL liquid 100 mg PO DAILY RF: 0 fexofenadine [Yuliana Allergy] 180 mg tablet 180 mg PO DAILY RF: 0 lactobacillus rhamnosus R0011 [Probiotic Digestive Care] 20 billion cell capsule 1 cell PO DAILY RF: 0 oxybutynin chloride [Ditropan XL] 5 mg tablet extended release 24hr 5 mg PO DAILY RF: 0 glipizide 10 mg tablet extended release 24hr 10 mg PO DAILY Qty: 60 RF: 2 ticagrelor 60 mg tablet 60 mg PO DAILY 30 Days Qty: 60 RF: 0 triamcinolone acetonide 0.1 % cream 1 applictn TOP QID Qty: 453.6 RF: 0 True Metrix Glucose Test Strip strip .ROUTE .MEDSUPPLY RF: 0 multivitamin Tablet 1 tab PO DAILY RF: 0 [id number]-Jvnjltiob serr [Glucosamine Daily Complex] 1,500-400-100 mg- unit-mg Tablet 1 tab PO QAM RF: 0 Discontinued clindamycin HCl 150 mg capsule 150 mg PO TID RF: 0 Follow up/Referrals: Matt Medina MD [Primary Care Provider] - (has appointment with Dr. Medina on 05/15/18 already) Provider Discharge Instructions Diet: Carb-consistent/Diabetic Discharge Data Primary Care Provider: Matt Medina Attending Provider: Matt Medina Admit Date/Time: 05/06/18 21:27 Quality VTE Deep Vein Thrombosis/Pulmonary Embolism Present on Admission: No
[2018-05-09 08:10] VITALS: BP 147/76; PULSE 51; RESP 18; TEMP 36.3; O2SAT 97
--- NOTE | 2018-05-09 09:07 | CM.DPC ---
Addendum entered by Alexa Strickland LPN 05/09/18 15:46: Pt did go home as planned. PT followed up with pt re dme: recommended cane use as per his PLF and his planned to get a FWW at [facility]. (open for dme today). Original Note: DCP: continued: Case received and d/c to home order noted. Reviewed EMR. See that PT is recommending a FWW. Will discuss in Team Rounds. (if pt needs one the PT dept can issue from their consignment closet). Will follow prn.
--- NOTE | 2018-05-09 09:15 | PT.IPTN ---
Physical Therapy Treatment Note M2 PT-IP Current Condition Start: 05/07/18 17:19 Freq: NEEDED Status: Active Protocol: Document 05/07/18 15:28 AB (Rec: 05/07/18 17:31 AB [id number]) Physical Therapy Current Condition Current Condition Evaluation Date 05/07/18 Treatment Diagnosis Influenza A; difficulty in walking Onset Date 05/06/18 Precautions Other Precautions droplet precautions M3 PT-IP Subjective Start: 05/07/18 17:19 Freq: NEEDED Status: Active Protocol: Document 05/09/18 09:15 AB (Rec: 05/09/18 12:56 AB [email or web address]) Subjective Physical Therapy Visit Type Type Treatment Note Visit Start Time 09:15 Visit Stop Time 09:40 Total Visit Minutes 25 Number of INTEGRATED CIRCUIT LAYOUT DESIGNER Visits 0 Physical Therapy Visit Comments Patient Comments pt agreeable to do PT Therapy Pain Assessment Pain Present Pain Present Pain Reported Location Right Hip Intensity 3 Scale Used Numeric (1 - 10) Pain Management Techniques Re-positioning M4 PT-IP Mobility and Gait Start: 05/07/18 17:19 Freq: NEEDED Status: Active Protocol: Document 05/09/18 09:15 AB (Rec: 05/09/18 12:56 AB [email or web address]) PT-Bed Mobility Assessment Supine to Sit Supine to Sit Independent Sit to Supine Sit to Supine Independent PT-Transfer Assessment Sit to and From Stand Sit to and from Stand Standby Assistance Equipment Transfer Assistive Device None Gait Belt Gait Assessment Gait Gait Assistance Required: Standby Assistance Contact Guard Assist Distance (Feet) 300 Able to Maintain Weight Bearing Status Yes During Gait Assistive Devices Assistive Device None Gait Belt Straight Cane Orthotic/Prosthetic Devices or Brace: No Gait Deviations General Gait Pattern Antalgic Decreased Stride Length Decreased Feet Clearance Factors Limiting Gait Function Factors Limiting Gait Function Decreased Activity Tolerance Decreased Strength Limited Range of Motion Pain Poor Balance Comments Gait Comments pt ambulated in hallway without AD ~ 300 ft with (+) LOB x 4 requiring CGA for recovery. pt stated that his R hip needs a replacement. assessed ambulation using SPC and pt completed ~ 175 ft requiring SBA. noted increase steadiness and upright posture with use of SPC. educated pt regarding use of FWW/SPC for ambulation for safety and pt agreed. Stair Climbing Assessment Evaluation Level of Assist On Stairs Contact Guard Assistance Devices Stair Climbing Assistive Devices Straight Cane Technique/Endurance Stair Climbing Direction Ascend and Descend Stair Climbing Technique Step to Step Number of Steps Climbed 1 Query Text: Stair Climbing Set # Repetitions (reps) 4 M5 PT-IP Objective Assessments Start: 05/07/18 17:19 Freq: NEEDED Status: Active Protocol: Document 05/07/18 15:28 AB (Rec: 05/07/18 17:31 AB [id number]) Orientation Orientation/Cognition Level of Alertness Alert Orientation Name Place Situation Strength Lower Extremity Strength Assessment Within Functional Limits M6 PT-IP Treatment Start: 05/07/18 17:19 Freq: NEEDED Status: Active Protocol: Document 05/09/18 09:15 AB (Rec: 05/09/18 12:56 AB [email or web address]) Physical Therapy Treatment Education Education Provided Safety M7 PT-IP Assessment and Plan Start: 05/07/18 17:19 Freq: NEEDED Status: Active Protocol: Document 05/09/18 09:15 AB (Rec: 05/09/18 12:56 AB [email or web address]) PT Summary Assessment and Plan Potential Rehabilitation Potential Good Summary Impairments Pain ROM Strength Balance Coordination Sensation Cognition Bed Mobility Transfers Gait Activity Tolerance Assessment Summary pt requiring CGA with ambulation using SPC and recommending use of FWW or SPC for ambulation for safety. pt agreed. spouse stated that she will borrow a FWW from the [facility] and does not want to purchase a FWW. Goals Bed Mobility Goal Independent Transfer Goal Independent Gait Goal Independent Gait Distance 500 Other Goals up/down 1 step using FWW/SPC/ without AD Days to Meet Goals 2 Frequency of Treatment Frequency Of Treatment Once a Day Treatment Plan Physical Therapy Treatment Plan Bed Mobility Training Transfer Training Gait Training Therapeutic Exercise Balance Retraining Post Op Education Discharge Planning Hot or Cold Pack Neuromuscular Re-ed Coordination Retraining Manual Therapy Recommendations To Nursing Amount of Assist Needed Standby Assistance Discharge Recommendations PT Discharge Recommendations Home with Assistance Equipment Needed for Home Before FWW: spouse will try to borrow Discharge one
[2018-05-09] MEDS: MULTIVITAMIN 1 TABLET 1 TAB PO (10:30)
[2018-05-09] MEDS: LACTOBACILLUS ACIDOPHILUS TABLET 1 EACH PO (10:31)
[2018-05-09] MEDS: METFORMIN HCL 500 MG TABLET 1000 MG PO (10:31)
[2018-05-09] MEDS: OSELTAMIVIR 75 MG CAPSULE PO (10:31)
[2018-05-09] MEDS: CARVEDILOL 12.5 MG TABLET PO (10:32)
[2018-05-09] MEDS: SERTRALINE 50 MG TABLET PO (10:32)
[2018-05-09] MEDS: TAMSULOSIN 0.4 MG CAPSULE PO (10:32)
[2018-05-09] MEDS: LORATADINE 10 MG TABLET PO (10:33)
[2018-05-09] MEDS: glipiZIDE XL 5 MG TAB 10 MG PO (10:33)
[2018-05-09] MEDS: predniSONE 20 MG TABLET PO (10:34)
[2018-05-09] MEDS: SODIUM CHLORIDE 0.9% FLUSH 10 ML IV (10:34)
[2018-05-09] MEDS: ENOXAPARIN 40 MG/0.4 ML SYRINGE SUBCUT (10:34)
[2018-05-09] MEDS: OXYBUTYNIN 5 MG ER TAB PO (10:34)
[2018-05-09 11:44] VITALS: O2SAT 96
[2018-05-09 12:03] VITALS: BP 160/75; PULSE 58; RESP 18; TEMP 36.4; O2SAT 95
== END 2018-05-09 14:27 | disposition home or self-care (01) ==
LOC: ED 21:15 → AC 21:29
PROVIDERS: Admitting Provider Family Medicine; Emergency Provider Nurse Practitioner Family; PCP Internal Medicine; Visit Provider Internal Medicine
DX: J10.1 Influenza due to other identified influenza virus with other respiratory manifestations (principal); R05 Cough; R53.1 Weakness; I10 Essential (primary) hypertension; E11.9 Type 2 diabetes mellitus without complications; Z87.891 Personal history of nicotine dependence; E78.5 Hyperlipidemia, unspecified; I25.10 Atherosclerotic heart disease of native coronary artery without angina pectoris; I73.9 Peripheral vascular disease, unspecified; M35.3 Polymyalgia rheumatica; N40.1 Benign prostatic hyperplasia with lower urinary tract symptoms; Z79.84 Long term (current) use of oral hypoglycemic drugs; R41.0 Disorientation, unspecified; E86.0 Dehydration
CPT/HCPCS: 36415; 36591; 70450; 71045; 80048; 81003; 82247; 82550; 82553; 82962; 83605; 84484; 85025; 85610; 85730; 87040; 87400; 93005; 94640; 94760; 96361; 96374; 97116; 97162; 99217; 99219; 99225; 99283; 99285; G0378; J1650; J2405; J2920; J7613

== ENCOUNTER → 2018-06-09 13:22 | Outpatient (CLI) | payer MEDICARE, OTHER, SELFPAY ==
[2018-05-06 22:32] VITALS: BMI 27.1
[2018-06-09 14:35] LABS: Albumin 4.4 g/dL (3.5-5.0); BUN Creatinine Ratio 17.5 (6-22); Blood Urea Nitrogen 21 mg/dL (9-20); Calcium 9.1 mg/dL (8.4-10.2); Carbon Dioxide 28 mmol/L (22-32); Chloride 96 mmol/L (98-107); Estimated Glomerular Filt Rate 58.9 mL/min (>60); Glucose 331 mg/dL (80-110); HEMOLYSIS < 15 (0-50); Phosphorous 3.3 mg/dL (2.3-3.7); Potassium 3.8 mmol/L (3.4-5.1); Sodium 135 mmol/L (137-145)
== END ==
PROVIDERS: PCP Internal Medicine; Visit Provider Internal Medicine Cardiovascular Disease
DX: E78.5 Hyperlipidemia, unspecified (principal); I25.10 Atherosclerotic heart disease of native coronary artery without angina pectoris
CPT/HCPCS: 36415; 80069

== ENCOUNTER → 2018-07-14 10:14 | Outpatient (CLI) | payer MEDICARE, OTHER, SELFPAY ==
[2018-05-06 22:32] VITALS: BMI 27.1
[2018-07-14 11:04] LABS: Hemoglobin A1C% w Est Avg Glu 9.3 % (4.0-6.0)
[2018-07-14 12:44] LABS: BUN Creatinine Ratio 19.2 (6-22); Blood Urea Nitrogen 23 mg/dL (9-20); Calcium 9.7 mg/dL (8.4-10.2); Carbon Dioxide 27 mmol/L (22-32); Chloride 90 mmol/L (98-107); Estimated Glomerular Filt Rate 58.7 mL/min (>60); Glucose 356 mg/dL (80-110); HEMOLYSIS < 15 (0-50); Potassium 3.3 mmol/L (3.4-5.1); Sodium 133 mmol/L (137-145)
== END ==
PROVIDERS: PCP Internal Medicine; Visit Provider Internal Medicine
DX: E11.65 Type 2 diabetes mellitus with hyperglycemia (principal)
CPT/HCPCS: 36415; 80048; 83036

== ENCOUNTER 2018-07-21 06:16 | Emergency (ER) | payer MEDICARE, OTHER, SELFPAY ==
[2018-05-06 22:32] VITALS: BMI 27.1
[2018-07-21 06:20] VITALS: BP 181/128; PULSE 104; RESP 15; TEMP 36.7; O2SAT 96; BMI 36.6
--- NOTE | 2018-07-21 06:22 | ED.GENADULT ---
HPI - General Adult General Chief complaint: Urogenital-Male Stated complaint: Stiff joints Time Seen by Provider: 07/21/18 06:20 Source: patient and EMS Mode of arrival: EMS Limitations: no limitations History of Present Illness HPI narrative: 78-year-old male brought in by EMS after his called 911. Patient states that he has been up urinating all night. He states this new for him. He is also complaining of joint pain in his hands. He denies any other symptoms. He states that his called 911 this morning because she was ?fed up? with him getting up and peeing all night. He is a unp-hmitrcm-xbqamlyue diabetic. Does not check his blood sugars at home. Is reported by EMS that he is scheduled for cardiac catheterization at the [facility] sometime next week. Patient is a fairly poor historian. Related Data Home Medications Medication Instructions Recorded Confirmed carvedilol [Coreg] 12.5 mg PO BID #0 03/09/11 07/21/18 [id number] serr 1 tab PO QAM 07/14/17 07/18/18 [Glucosamine Daily Complex] fexofenadine 180 mg tablet 180 mg PO DAILY 07/22/17 07/18/18 lactobacillus rhamnosus R0011 20 1 cell PO DAILY cap 07/22/17 07/18/18 billion cell capsule oxybutynin chloride ER 5 mg 5 mg PO DAILY 07/22/17 07/18/18 tablet,extended release 24 hr coenzyme Q10 100 mg/mL oral liquid 100 mg PO DAILY ml 10/14/17 07/18/18 ticagrelor 60 mg tablet 60 mg PO DAILY 30 Days #60 tab 02/14/18 07/18/18 True Metrix Glucose Test Strip 05/06/18 07/18/18 ibuprofen 200 mg tablet 600 mg PO .HS PRN tab 05/15/18 07/18/18 carvedilol 25 mg tablet 25 mg PO ONCE #60 tab 07/14/18 07/18/18 finasteride 5 mg tablet 5 mg PO DAILY #90 tab 07/14/18 07/21/18 isosorbide dinitrate 20 mg tablet 20 mg PO ONCE #60 tab 07/14/18 07/18/18 rosuvastatin 5 mg tablet 5 mg PO DAILY #90 tab 07/14/18 07/18/18 Previous Rx's Medication Instructions Recorded clotrimazole-betamethasone 1 suly TP TID #45 gm 09/25/16 tamsulosin [Flomax] 0.4 mg PO BID #180 tab 04/10/17 triamcinolone acetonide 0.1 % 1 applictn TOP QID #453.6 gram 07/12/17 topical cream famotidine 20 mg tablet 20 mg PO BID #60 tab 02/17/18 sertraline 50 mg PO QDAY #90 tab 02/27/18 metformin 1,000 mg PO BIDCC #90 tab 04/02/18 glipizide ER 10 mg tablet, 10 mg PO DAILY #60 tab 05/15/18 extended release 24 hr hydrochlorothiazide 25 mg PO QDAY #60 tab 06/23/18 glipizide 10 mg PO BID #60 tab 07/21/18 Allergies Allergy/AdvReac Type Severity Reaction Status Date / Time clavulanic acid Allergy Severe Rash/Hives Verified 07/18/18 11:25 [From Augmentin] - internal reaction clopidogrel [From Plavix] Allergy Intermediate Hives. Verified 07/18/18 11:25 Penicillins Allergy Intermediate HIVES Verified 07/18/18 11:25 Ncfjfae-Lbs-Ijp Reductase AdvReac Intermediate fatigue, Verified 07/18/18 11:25 Inhibitor extreme amoxicillin AdvReac Mild Hives Verified 07/18/18 11:25 Review of Systems Constitutional Denies fever(s) Cardiovascular Denies chest pain and Denies dyspnea Respiratory Denies dyspnea Gastrointestinal Gastrointestinal: Denies abdominal pain, Denies nausea and Denies vomiting Genitourinary Denies dysuria and Reports urinary frequency Musculoskeletal Comments: Pain in his hands Integumentary/Breasts Denies rash Neurologic Denies behavioral changes Psychiatric Denies behavioral changes Hematologic/Lymphatic Denies easy bleeding and Denies easy bruising [facility] Medical History Type 2 diabetes mellitus without complication (Chronic 06/20/15) Mixed hyperlipidemia (Chronic) Essential hypertension (Chronic) 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) Peripheral vascular disease (Chronic 2009) Benign prostatic hyperplasia with urinary obstruction (Chronic 03/25/15) Polymyalgia rheumatica (Chronic 08/30/15) Primary osteoarthritis of both hips (Chronic 08/30/15) Gilbert's syndrome (Chronic) Kidney stones (Chronic 1984) Chronic back pain (Chronic 1989) Shoulder pain (Chronic 2011) Hayfever (Chronic 1999) Chicken pox (Resolved) Femur fracture (Resolved 1965) Fracture (Resolved 1951) Hepatitis A (Resolved 1963) Measles (Resolved) Melanoma (Resolved 1987) Mumps (Resolved) Surgical History History of orthopedic surgery (Resolved 1965) Status post appendectomy (Resolved 1956) Status post coronary artery bypass graft (Resolved 1995) Family History Father Colon cancer Prostate enlargement Bladder cancer History of hip surgery Pneumonia History of prostate surgery Mother Diabetes mellitus Heart disease Hypertension High cholesterol Osteoporosis History of cataract surgery H/O heart bypass surgery Arthritis Grandfather Arthritis Prostate cancer Colon cancer Deaf Legally blind Grandmother Diabetes mellitus Hypertension Angina pectoris Heart disease Osteoporosis Social History marital status: number of children: 0 household members: spouse lives independently: Yes caregiver/support person: No housing: house pets and animals: Yes education level: other ([employer] degree) occupational status: other (Retired) 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 travel history: other ([place] in past) leisure activities: other ([employer]) Smoking Status: Former smoker Tobacco: How many years used: 20 Smokeless tobacco user: other (Cigarettes) quit status: quit date established (1979) second hand exposure: No alcohol intake: current substance use type: does not use and marijuana (Back in the 60's) Family History Father Colon cancer Prostate enlargement Bladder cancer History of hip surgery Pneumonia History of prostate surgery Mother Diabetes mellitus Heart disease Hypertension High cholesterol Osteoporosis History of cataract surgery H/O heart bypass surgery Arthritis Grandfather Arthritis Prostate cancer Colon cancer Deaf Legally blind Grandmother Diabetes mellitus Hypertension Angina pectoris Heart disease Osteoporosis Social History marital status: number of children: 0 household members: spouse lives independently: Yes caregiver/support person: No housing: house pets and animals: Yes education level: other ([employer] degree) occupational status: other (Retired) 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 travel history: other ([place] in past) leisure activities: other ([employer]) Smoking Status: Former smoker Tobacco: How many years used: 20 Smokeless tobacco user: other (Cigarettes) quit status: quit date established (1979) second hand exposure: No alcohol intake: current substance use type: does not use and marijuana (Back in the 60's) Exam Initial Vital Signs Initial Vital Signs: Vital Signs Temperature 98.1 F 07/21/18 06:20 Pulse Rate 104 H 07/21/18 06:20 Respiratory Rate 15 07/21/18 06:20 Blood Pressure 181/128 H 07/21/18 06:20 Pulse Oximetry 96 07/21/18 06:20 Const General: No acute distress and disheveled Orientation: alert and awake HENMT Head: normal to inspection and normocephalic Resp Effort & Inspection: normal respiratory effort Auscultation: clear to auscultation bilaterally Cardio Rate: tachycardic Rhythm: regular rhythm GI Inspection: non-distended Palpation: soft Other: Diastasis recti Back/Spine/Pelvis Back: No CVA tenderness Skin Lesions: no lesions Rashes: no rashes Neuro General: alert and awake Speech: speech normal Extrem Other: Moves all 4 extremities. No swelling in his hands. Can move his hands without much discomfort per him. Psych Appearance: grossly normal and well kempt Course Orders Ordered: ED Orders 07/21/18 06:05 Complete Blood Count AUTO DIFF Stat Comprehensive Metabolic Panel Stat Ethanol (ETOH) Stat Ketones (Beta-Hydroxybutyrate) Stat Lipase Stat Magnesium Stat Phosphorous Stat Troponin I Stat 07/21/18 06:19 Urine Microscopic Stat 07/21/18 06:21 EKG-12 Lead Stat 07/21/18 06:49 Venous Blood Gas Stat Vital Signs - 8 hr 07/21/18 06:20 07/21/18 06:34 07/21/18 07:00 Temperature 98.1 F Pulse Rate 104 H 96 H 93 H Respiratory Rate 15 27 H 27 H Blood Pressure 181/128 H Blood Pressure [Left Arm] 171/88 H 168/88 H Pulse Oximetry 96 92 93 Medical Decision Making Lab Data Result diagrams: 07/21/18 06:05 07/21/18 06:05 Lab Results 07/21/18 07/21/18 07/21/18 Range/Units 06:05 06:05 06:05 WBC 8.3 (4.5-11.0) X10^3/uL RBC 5.08 (4.5-5.9) X10^6/uL Hgb 17.4 (13.5-17.5) g/dL Hct 48.6 (41-53) % MCV 95.6 (80-100) fL MCH 34.2 H (26-34) PG MCHC 35.8 (30-36) % RDW 14.0 (11.6-14.8) % Plt Count 199 (150-400) X10^3/uL Neut % (Auto) 62.9 (50-75) % Lymph % (Auto) 25.9 (25-40) % [place] % (Auto) 9.2 (3-14) % Eos % (Auto) 1.2 L (2-4) % Baso % (Auto) 0.8 (0-2) % Neut # (Auto) 5200 (6919-6377) /uL Lymph # (Auto) 2100 (9144-6441) /uL [place] # (Auto) 800 (0-900) /uL Eos # (Auto) 100 (0-450) /uL Baso # (Auto) 100 (0-100) /uL Sodium 131 L (137-145) mmol/L Potassium 3.4 (3.4-5.1) mmol/L Chloride 96 L (98-107) mmol/L Carbon Dioxide 23 (22-32) mmol/L BUN 22 H (9-20) mg/dL Creatinine 1.10 (0.66-1.25) mg/dL Estimated GFR > 60.0 (>60) mL/min BUN/Creatinine Ratio 20.0 (6-22) Glucose 346 H (80-110) mg/dL Calcium 9.3 (8.4-10.2) mg/dL Phosphorus 3.8 H (2.3-3.7) mg/dL Magnesium 1.8 (1.6-2.3) mg/dL Total Bilirubin 1.1 (0.2-1.3) mg/dL AST 73 H (17-59) IU/L ALT 62 (21-72) IU/L Alkaline Phosphatase 148 H (38-126) U/L Troponin I 0.019 (0.01-0.034) ng/mL Total Protein 7.3 (6.3-8.2) g/dL Albumin 4.1 (3.5-5.0) g/dL Globulin 3.2 (1.7-4.1) g/dL Albumin/Globulin Ratio 1.3 (1.0-2.8) Lipase 654 H (23-300) U/L Urine RBC (0-5/HPF) Urine WBC (0-5/HPF) Amorphous Sediment Urine Bacteria (None) Ur Culture Indicated? Ethyl Alcohol < 10 mg/dL Ketones 0.72 H (<0.27) mmol/L 05/19 Range/Units 06:19 WBC (4.5-11.0) X10^3/uL RBC (4.5-5.9) X10^6/uL Hgb (13.5-17.5) g/dL Hct (41-53) % MCV (80-100) fL MCH (26-34) PG MCHC (30-36) % RDW (11.6-14.8) % Plt Count (150-400) X10^3/uL Neut % (Auto) (50-75) % Lymph % (Auto) (25-40) % [place] % (Auto) (3-14) % Eos % (Auto) (2-4) % Baso % (Auto) (0-2) % Neut # (Auto) (8700-6282) /uL Lymph # (Auto) (2774-7883) /uL [place] # (Auto) (0-900) /uL Eos # (Auto) (0-450) /uL Baso # (Auto) (0-100) /uL Sodium (137-145) mmol/L Potassium (3.4-5.1) mmol/L Chloride (98-107) mmol/L Carbon Dioxide (22-32) mmol/L BUN (9-20) mg/dL Creatinine (0.66-1.25) mg/dL Estimated GFR (>60) mL/min BUN/Creatinine Ratio (6-22) Glucose (80-110) mg/dL Calcium (8.4-10.2) mg/dL Phosphorus (2.3-3.7) mg/dL Magnesium (1.6-2.3) mg/dL Total Bilirubin (0.2-1.3) mg/dL AST (17-59) IU/L ALT (21-72) IU/L Alkaline Phosphatase (38-126) U/L Troponin I (0.01-0.034) ng/mL Total Protein (6.3-8.2) g/dL Albumin (3.5-5.0) g/dL Globulin (1.7-4.1) g/dL Albumin/Globulin Ratio (1.0-2.8) Lipase (23-300) U/L Urine RBC 0-1/hpf (0-5/HPF) Urine WBC None seen (0-5/HPF) Amorphous Sediment 1+ Urine Bacteria None seen (None) Ur Culture Indicated? Cult not indicated Ethyl Alcohol mg/dL Ketones (<0.27) mmol/L Urine Dip Bedside Urine Glucose 500 mg/dl Bedside Urine Bilirubin - Negative Bedside Urine Ketone + 15 Urine Specific [place] 1.020 Bedside Urine Occult Blood + Bedside Urine pH 5.5 Bedside Urine Protein + 30 Bedside Urine Urobilinogen - Negative Bedside Urine Nitrite - Negative Bedside Urine Leukocytes - Negative Esterase Point of care testing: Urine Dip Bedside Urine Glucose 500 mg/dl Bedside Urine Bilirubin - Negative Bedside Urine Ketone + 15 Urine Specific [place] 1.020 Bedside Urine Occult Blood + Bedside Urine pH 5.5 Bedside Urine Protein + 30 Bedside Urine Urobilinogen - Negative Bedside Urine Nitrite - Negative Bedside Urine Leukocytes - Negative Esterase ECG Data Attestation: I personally reviewed and interpreted this ECG as follows: Prior ECG tracings: available for review Interpretation: Sinus tachycardia Ventricular rate of 100 Left axis deviation Inverted T-waves 1 aVL V1 through V4. LVH Comparison EKG from 05/06/2018 Today's EKG unchanged from this date. MDM Narrative Medical decision making narrative: Patient does have a elevated blood glucose however is not in DKA. His troponin is indeterminate however it is lower today than what it has been in the past and he is not complaining of any chest pain or shortness of breath. He does have an abnormal EKG but it is unchanged from an EKG earlier this year. His urine shows no signs of an infection. I suspect that the urinary frequency is related to the elevated blood glucose. His other issue today was that he was having swelling in his hands and decreased motion. This is not new and according to the patient seems to be improving. He is not currently on any steroids as he stopped this course of couple days ago. This could also be why his blood sugar is elevated today. During my last discussion with the patient his was at bedside. She stated that she called 911 this morning because he was having problems walking this morning. The patient states that he was having problems walking because he was having trouble gripping his cane because of the swelling in his hands. The patient's also thinks that he has been little more confused over the past several days. She was gone for a couple days and when she returned home there was some question about whether not the patient had been taking his medications. I informed him that the pharmacies can provide him with blister packs that separate his medications so that he knows what medications to take at what time. I did discuss the case with Dr. Medina who is his primary provider. Dr. Medina recommended doubling his glipizide. The discussion was to re-evaluate the need for insulin after his cardiac procedure at the end of this month. Patient was given return precautions and follow-up instructions. Both he and his expressed understanding and agreement with plan. Discharge Plan Departure Patient Disposition: Home Clinical Impression: Hyperglycemia, Arthritis Instructions: DI for Hyperglycemia -- Adult Activity Restrictions/Additional Instructions: Recommend that you take all of your medications as directed except stop taking the glipizide that you currently have and start the new prescription you were given today. We are changing the glipizide from 10 mg that is released over 24 hours to 10 mg 2 times a day. I do recommend that today you talk with Dr. Medina office about a follow-up. I also recommend that you talk with the [place] regional sales manager about the procedure later this month. Return to the emergency department for any new or worsening symptoms Prescriptions: New glipizide 10 mg tablet 10 mg PO BID Qty: 60 RF: 0 No Action carvedilol [Coreg] 12.5 MG tablet 12.5 mg PO BID Qty: 0 RF: 0 clotrimazole-betamethasone 15 GM cream 1 suly TP TID Qty: 45 RF: 3 tamsulosin [Flomax] 0.4 MG capsule,extended release 24hr 0.4 mg PO BID Qty: 180 RF: 3 famotidine 20 mg tablet 20 mg PO BID Qty: 60 RF: 3 sertraline 50 mg tablet 50 mg PO QDAY Qty: 90 RF: 1 metformin 1,000 mg tablet 1,000 mg PO BIDCC Qty: 90 RF: 3 glipizide 10 mg tablet extended release 24hr 10 mg PO DAILY Qty: 60 RF: 3 hydrochlorothiazide 12.5 mg tablet 25 mg PO QDAY Qty: 60 RF: 3 coenzyme Q10 100 mg/mL liquid 100 mg PO DAILY RF: 0 fexofenadine [Yuliana Allergy] 180 mg tablet 180 mg PO DAILY RF: 0 lactobacillus rhamnosus R0011 [Probiotic Digestive Care] 20 billion cell capsule 1 cell PO DAILY RF: 0 oxybutynin chloride [Ditropan XL] 5 mg tablet extended release 24hr 5 mg PO DAILY RF: 0 ticagrelor 60 mg tablet 60 mg PO DAILY 30 Days Qty: 60 RF: 0 ibuprofen [Advil] 200 mg tablet 600 mg PO .HS PRNRF: 0 triamcinolone acetonide 0.1 % cream 1 applictn TOP QID Qty: 453.6 RF: 0 isosorbide dinitrate 20 mg tablet 20 mg PO ONCE Qty: 60 RF: 0 rosuvastatin 5 mg tablet 5 mg PO DAILY Qty: 90 RF: 0 finasteride 5 mg tablet 5 mg PO DAILY Qty: 90 RF: 0 carvedilol 25 mg tablet 25 mg PO ONCE Qty: 60 RF: 0 True Metrix Glucose Test Strip strip .ROUTE .MEDSUPPLY RF: 0 [id number] serr [Glucosamine Daily Complex] 1,500-400-100 mg-unit-mg Tablet 1 tab PO QAM RF: 0 Referrals: Matt Medina MD [Primary Care Provider] -
[2018-07-21 06:31] LABS: Add Manual Diff / Slide Review NO; Basophils Absolute Auto 100 /uL (0-100); Basophils Percent Auto 0.8 % (0-2); Eosinophils Absolute Auto 100 /uL (0-450); Eosinophils Percent Auto 1.2 % (2-4); Hematocrit 48.6 % (41-53); Hemoglobin 17.4 g/dL (13.5-17.5); Lymphocytes Absolute Auto 2100 /uL (1100-4500); Lymphocytes Percent Auto 25.9 % (25-40); Mean Corpuscular HGB Conc 35.8 % (30-36); Mean Corpuscular Hemoglobin 34.2 PG (26-34); Mean Corpuscular Volume 95.6 fL (80-100); Monocytes Absolute Auto 800 /uL (0-900); Monocytes Percent Auto 9.2 % (3-14); Neutrophils Absolute Auto 5200 /uL (1500-7000); Neutrophils Percent Auto 62.9 % (50-75); Platelet Count 199 X10^3/uL (150-400); Red Blood Cell Count 5.08 X10^6/uL (4.5-5.9); White Blood Cell Count 8.3 X10^3/uL (4.5-11.0)
--- NOTE | 2018-07-21 06:33 | PC.NURSE ---
reports urinating every 15 minutes for days
[2018-07-21 06:34] VITALS: BP 171/88; PULSE 96; RESP 27; O2SAT 92
[2018-07-21 06:38] LABS: Alanine Aminotransferase 62 IU/L (21-72); Albumin 4.1 g/dL (3.5-5.0); Albumin Globulin Ratio 1.3 (1.0-2.8); Alkaline Phosphatase 148 U/L (38-126); Aspartate Aminotransferase 73 IU/L (17-59); Bilirubin Total 1.1 mg/dL (0.2-1.3); Blood Urea Nitrogen 22 mg/dL (9-20); Calcium 9.3 mg/dL (8.4-10.2); Carbon Dioxide 23 mmol/L (22-32); Chloride 96 mmol/L (98-107); Estimated Glomerular Filt Rate > 60.0 mL/min (>60); Ethanol (ETOH) < 10 mg/dL; Globulin 3.2 g/dL (1.7-4.1); Glucose 346 mg/dL (80-110); Lipase 654 U/L (23-300); Magnesium 1.8 mg/dL (1.6-2.3); Phosphorous 3.8 mg/dL (2.3-3.7); Potassium 3.4 mmol/L (3.4-5.1); Sodium 131 mmol/L (137-145); Total Protein 7.3 g/dL (6.3-8.2)
[2018-07-21 06:42] LABS: HEMOLYSIS 23 (0-50); Ketones (Beta-Hydroxybutyrate) 0.72 mmol/L (<0.27)
[2018-07-21 06:48] LABS: Bacteria Urine None Seen; WBC Urine None Seen (0-5/HPF)
[2018-07-21 06:49] LABS: Troponin I 0.019 ng/mL (0.01-0.034)
[2018-07-21 06:59] LABS: Amorphous Sediment Urine 1+; Culture Indicated Urine Cult Not Indicated; RBC Urine 0-1/HPF (0-5/HPF)
[2018-07-21 07:00] VITALS: BP 168/88; PULSE 93; RESP 27; O2SAT 93
[2018-07-21 07:43] LABS: PCO2 VBG 28.2 mmHg (45-50); pH VBG 7.38 (7.33-7.43)
[2018-07-21 07:44] LABS: HCO3 VBG 17 mmol/L (23-28); Oxygen Saturation VBG 85 % (70-75); PO2 VBG 50 mmHg (35-45); Total CO2 VBG 17 mmol/L (24-29)
[2018-07-21 07:49] VITALS: BP 163/93; PULSE 89; RESP 18; O2SAT 98
--- NOTE | 2018-07-21 08:26 | PC.NURSE ---
Upon discharge patient expressed concern about taking patient home. States he is much weaker than normal. Patient states he feels like he can manage at home with walker and cane. I just want to go home and go to bed Reassured to use 911 if she feels unsafe at home and unable to get patient around. knows to bring patient back if she feels like he is declining.
== END 2018-07-21 08:03 | disposition home or self-care (01) ==
PROVIDERS: Emergency Provider Emergency Medicine; PCP Internal Medicine
DX: E11.65 Type 2 diabetes mellitus with hyperglycemia (principal); M19.90 Unspecified osteoarthritis, unspecified site
CPT/HCPCS: 51798; 80053; 80320; 81003; 81015; 82009; 82805; 83690; 83735; 84100; 84484; 85025; 93005; 93010; 99283; 99284

== ENCOUNTER → 2018-08-07 14:31 | Outpatient (CLI) | payer MEDICARE, OTHER, SELFPAY ==
[2018-07-31 15:48] VITALS: BMI 27.1
[2018-08-07 16:50] LABS: Alanine Aminotransferase 56 IU/L (21-72); Albumin 4.1 g/dL (3.5-5.0); Albumin Globulin Ratio 1.5 (1.0-2.8); Alkaline Phosphatase 117 U/L (38-126); Aspartate Aminotransferase 60 IU/L (17-59); Bilirubin Total 1.1 mg/dL (0.2-1.3); Bilirubin Unconjugated 0.7 mg/dL (0.0-1.1); Blood Urea Nitrogen 20 mg/dL (9-20); C-Reactive Protein Quant 2.4 mg/dL (<1.0); Calcium 9.4 mg/dL (8.4-10.2); Carbon Dioxide 31 mmol/L (22-32); Chloride 96 mmol/L (98-107); Estimated Glomerular Filt Rate > 60.0 mL/min (>60); Globulin 2.7 g/dL (1.7-4.1); Glucose 223 mg/dL (80-110); HEMOLYSIS < 15 (0-50); Potassium 4.1 mmol/L (3.4-5.1); Sodium 137 mmol/L (137-145); Total Protein 6.8 g/dL (6.3-8.2)
== END ==
PROVIDERS: PCP Internal Medicine; Visit Provider Internal Medicine
DX: E11.65 Type 2 diabetes mellitus with hyperglycemia (principal); R94.5 Abnormal results of liver function studies
CPT/HCPCS: 36415; 80048; 80076; 86140

== ENCOUNTER → 2018-09-23 10:50 | Outpatient (CLI) | payer MEDICARE, OTHER, SELFPAY ==
[2018-07-31 15:48] VITALS: BMI 27.1
--- NOTE | 2018-09-23 12:48 | DIET.PN ---
DIABETES Nutrition Initial Assessment:? ASSESS:?? 78 yom referred for type 2 diabetes. Pt reports he has had pre-diabetes for many years. It was after an event in 2016 causing the need for prednisone he feels escalated his diagnosis. He has had several other events thereafter including heart surgery 6 weeks ago. Pt also complains of chronic low energy. States this began in few years ago and has progressively gotten worse. Reports severe atrophy in lower extremities due to extreme fatigue and lack of activity. He states he has not been monitoring his BG as he does not believe his meter to be working. LABS: Per pt report:? A1c: 9.3 (07/20) ? MEDS:?? metformin 1000mg BID; Glipizide ? DIET: Loves food. Snacks throughout the day. Always looking in the pantry. ? Weight: 221 # Height: 72? BMI: 30 ? Exercise:? Cardiac Rehab Class NUTRITION DX 1. Altered Nutrition related labs related to impaired glucose metabolism, lack of previous exposure to accurate nutrition information as evidenced by pt report, dx of diabetes, previous diet high in refined carbohydrates.? INTERVENTION(s): 1. Discussed pathophysiology of diabetes. Reviewed A1c and its correlation to blood glucose numbers. Discussed recommended BG ranges. 2. Discussed importance of self-monitoring, how often, and when to check. Pt will bring in glucometer to check for discrepancies, products. 3. Reviewed hyper/hypoglycemia and treatment. 4. Reviewed safe disposal of equipment (strip/lancets/insulin needles). 5. Discussed impact of nutrition/diet on blood sugar control.? Discussed fed versus non-fed state.?? 6. Discussed the effect of carbohydrates/protein/fat on blood sugar control.? Stressed importance of consistent carbohydrate intake at each meal and provided instructions for recommended servings/portions of carbohydrates/protein per meal. Provided pt with educational material. 7. Reviewed carbohydrate counting and measuring carbohydrate content via serving sizes and reading nutrition labels.? Provided handouts.?? 8. Discussed the difference between simple versus complex carbohydrates and the effect of fiber on blood sugar control.? Discussed various methods to increase fiber content in diet. 9. Stressed importance of meal timing and not going >4-5 hours between meals. Encouraged adding protein to each meal to support glucose control. Provided list of protein foods. MONITOR/EVALUATE: Anticipate good compliance.? Nutrition follow-up schedule for 3 weeks to review BG, weight, and food record. Pt will need CHO counting review.
== END ==
PROVIDERS: PCP Internal Medicine; Visit Provider Internal Medicine
DX: E11.9 Type 2 diabetes mellitus without complications (principal)
CPT/HCPCS: 97802

== ENCOUNTER → 2018-10-07 10:53 | Outpatient (CLI) | payer MEDICARE, OTHER, SELFPAY ==
[2018-07-31 15:48] VITALS: BMI 27.1
--- NOTE | 2018-10-07 12:45 | DIET.PN ---
Dietary Progress Note Assessment: HT: WT: BMI: Labs: Nutrition Diagnosis: Interventions: Monitoring/Evaluations:
--- NOTE | 2018-10-08 12:47 | DIET.PN ---
Addendum entered by Evonne Bejarano 10/08/18 13:21: Pt seen on 10/07/18. Original Note: Dietary Progress Note Assessment: 78 yom seen for diabetes nutrition follow up. Patient recently referred to an concession stand attendant in [place] who placed him on Victoza. attended todays appointment. Expressed concern with administering injections. He has been monitoring his BG 2x/day including fasting and evening with continued hyperglycemia. He continues to try to replace starches with more vegetables and fruits. Recently began incorporating Ensure max (high pro/low carb) nutrition supplements for mid day snacks. reports he has not been as active as he can be. She plans to start incorporating evening walking together. She is going to request new labs prior to next PCP visit. HT: 221 WT: 72 BMI: 30 Labs: A1c: 9.3 (due for new labs) [id number] Nutrition Diagnosis: Altered nutrition related labs r/t impaired glucose metabolism aeb pt report, dx diabetes, previous diet high in refined carbohydrates. Interventions: 1. Reviewed carb counting and servings with . Discussed reading food labels and measuring portion sizes. 2. Reviewed BG log and reasons for elevated readings. 3. Provided information on the effects of alcohol on glucose control. 4. Reviewed BG monitoring and demonstrated how to use control solution to check for glucometer accuracy. 5. Discussed Victoza management and the effects on insulin production from the pancreas, decreased glucose by the liver and food breakdown in the stomach. Provided handouts and instruction on how to administer injections. Pt to call for follow up. Monitoring/Evaluations: F/u scheduled to discussed BG log, food record, medication management/questions, new labs.
== END ==
PROVIDERS: PCP Internal Medicine; Visit Provider Internal Medicine
DX: E11.9 Type 2 diabetes mellitus without complications (principal)
CPT/HCPCS: 97803

== ENCOUNTER → 2018-10-09 12:17 | Outpatient (CLI) | payer MEDICARE, OTHER, SELFPAY ==
[2018-07-31 15:48] VITALS: BMI 27.1
[2018-10-09 13:42] LABS: Hemoglobin A1C% w Est Avg Glu 7.2 % (4.0-6.0)
[2018-10-09 13:48] LABS: BUN Creatinine Ratio 25.5 (6-22); Blood Urea Nitrogen 28 mg/dL (9-20); Carbon Dioxide 29 mmol/L (22-32); Chloride 97 mmol/L (98-107); Estimated Glomerular Filt Rate > 60.0 mL/min (>60); Glucose 170 mg/dL (80-110); HEMOLYSIS < 15 (0-50); Potassium 3.9 mmol/L (3.4-5.1); Sodium 140 mmol/L (137-145)
== END ==
PROVIDERS: PCP Internal Medicine; Visit Provider Nurse Practitioner
DX: E11.59 Type 2 diabetes mellitus with other circulatory complications (principal)
CPT/HCPCS: 36415; 80048; 83036

== ENCOUNTER → 2018-10-21 11:47 | Outpatient (CLI) | payer MEDICARE, OTHER, SELFPAY ==
[2018-07-31 15:48] VITALS: BMI 27.1
[2018-10-21 12:39] LABS: Blood Urea Nitrogen 21 mg/dL (9-20); Calcium 10.4 mg/dL (8.4-10.2); Carbon Dioxide 31 mmol/L (22-32); Chloride 90 mmol/L (98-107); Estimated Glomerular Filt Rate > 60.0 mL/min (>60); Glucose 203 mg/dL (80-110); HEMOLYSIS < 15 (0-50); Sodium 138 mmol/L (137-145)
== END ==
PROVIDERS: PCP Internal Medicine; Visit Provider Internal Medicine
DX: E11.9 Type 2 diabetes mellitus without complications (principal); I10 Essential (primary) hypertension
CPT/HCPCS: 36415; 80048

== ENCOUNTER → 2018-11-15 11:32 | Outpatient (CLI) | payer MEDICARE, OTHER, SELFPAY ==
[2018-07-31 15:48] VITALS: BMI 27.1
[2018-11-15 13:43] LABS: Add Manual Diff / Slide Review NO; Basophils Absolute Auto 100 /uL (0-100); Basophils Percent Auto 1.1 % (0-2); Eosinophils Absolute Auto 300 /uL (0-450); Eosinophils Percent Auto 3.3 % (2-4); Hematocrit 45.5 % (41-53); Hemoglobin 15.7 g/dL (13.5-17.5); Lymphocytes Absolute Auto 2200 /uL (1100-4500); Lymphocytes Percent Auto 25.5 % (25-40); Mean Corpuscular HGB Conc 34.5 % (30-36); Mean Corpuscular Hemoglobin 32.7 PG (26-34); Mean Corpuscular Volume 94.7 fL (80-100); Monocytes Absolute Auto 700 /uL (0-900); Monocytes Percent Auto 8.3 % (3-14); Neutrophils Absolute Auto 5300 /uL (1500-7000); Neutrophils Percent Auto 61.8 % (50-75); Platelet Count 242 X10^3/uL (150-400); Red Cell Distribution Width 14.3 % (11.6-14.8); White Blood Cell Count 8.6 X10^3/uL (4.5-11.0)
[2018-11-15 14:01] LABS: HEMOLYSIS < 15 (0-50)
[2018-11-15 14:06] LABS: Blood Urea Nitrogen 23 mg/dL (9-20); Calcium 9.9 mg/dL (8.4-10.2); Carbon Dioxide 26 mmol/L (22-32); Chloride 98 mmol/L (98-107); Cholesterol 157 mg/dL (140-199); Estimated Glomerular Filt Rate > 60.0 mL/min (>60); Glucose 196 mg/dL (80-110); HDL Cholesterol 42 mg/dL (40-60); LDL Cholesterol Calculated 67 mg/dL (<100); Potassium 3.6 mmol/L (3.4-5.1); Sodium 137 mmol/L (137-145); Triglycerides 240 mg/dL (35-150)
[2018-11-15 14:23] LABS: Vitamin D 25 Hydroxy (D3) 41.1 ng/mL (30.0-100.0)
[2018-11-15 14:37] LABS: Thyroid Stimulating Hormone 2.94 uIU/mL (0.47-4.68)
[2018-11-15 14:47] LABS: Hemoglobin A1C% w Est Avg Glu 6.6 % (4.0-6.0)
[2018-11-15 15:04] LABS: LDL Cholesterol Direct 90 mg/dL (<100)
== END ==
PROVIDERS: PCP Internal Medicine; Visit Provider Internal Medicine Cardiovascular Disease
DX: E78.5 Hyperlipidemia, unspecified (principal); I25.10 Atherosclerotic heart disease of native coronary artery without angina pectoris; I10 Essential (primary) hypertension; E11.9 Type 2 diabetes mellitus without complications
CPT/HCPCS: 36415; 80048; 80061; 82306; 83036; 83721; 84443; 85025

== ENCOUNTER 2018-11-17 08:25 | Emergency (ER) | payer MEDICARE, OTHER, SELFPAY ==
[2018-07-31 15:48] VITALS: BMI 27.1
[2018-11-17 08:32] VITALS: BP 129/74; PULSE 67; RESP 18; TEMP 36.8; O2SAT 97; BMI 29.1
[2018-11-17] MEDS: LIDOCAINE 1% W/EPI 1 ML SUBCUT (08:45)
--- NOTE | 2018-11-17 08:48 | ED.WOUNDLAC ---
HPI - Wound/Laceration General Chief Complaint: Wound/Laceration Stated Complaint: left forearm mole bleeding x2 days Time Seen by Provider: 11/17/18 08:30 Source: patient Mode of arrival: ambulatory Limitations: no limitations History of Present Illness HPI narrative: Patient is a 78 year old male who presents with left arm bleeding. He says he got up last night he hit his arm mold came off and it has been bleeding and oozing ever since. He is on Brilinta and aspirin. No other injuries. He is apply pressure and a bandage. Onset (ago): hour(s) Related Data Home Medications Medication Instructions Recorded Confirmed True Metrix Glucose Test Strip 05/06/18 10/21/18 finasteride 5 mg tablet 5 mg PO DAILY #90 tab 07/14/18 10/21/18 aspirin 81 mg tablet,delayed 81 mg PO DAILY 09/09/18 10/21/18 release carvedilol 25 mg tablet 25 mg PO BID #60 tab 09/09/18 10/21/18 isosorbide dinitrate 10 mg tablet 10 mg PO BID 09/09/18 10/21/18 rosuvastatin 10 mg tablet 10 mg PO DAILY 09/09/18 10/21/18 acetaminophen 500 mg tablet See Rx Instructions PO .PRN PRN 10/21/18 10/21/18 tab glipizide 10 mg tablet 10 mg PO BID tab 10/21/18 10/21/18 liraglutide 0.6 mg/0.1 mL (18 mg/3 1.2 mg SUBCUT DAILY ml 10/21/18 10/21/18 mL) subcutaneous pen injector Previous Rx's Medication Instructions Recorded metformin 1,000 mg PO BIDCC #90 tab 04/02/18 sertraline 50 mg tablet 50 mg PO QDAY #90 tab 07/25/18 tamsulosin [Flomax] 0.4 mg PO BID #180 tab 08/26/18 famotidine 20 mg tablet 20 mg PO BID #60 tab 10/16/18 magnesium oxide 500 mg capsule 500 mg PO BID #60 cap 10/21/18 ticagrelor 90 mg tablet 90 mg PO BID #180 tab 10/21/18 hydrochlorothiazide 12.5 mg tablet 25 mg PO QDAY #180 tab 10/27/18 potassium chloride 20 mEq 20 meq PO BID #60 tab 10/29/18 tablet,extended release Allergies Allergy/AdvReac Type Severity Reaction Status Date / Time clavulanic acid Allergy Severe Rash/Hives Verified 11/17/18 08:31 [From Augmentin] - internal reaction clopidogrel [From Plavix] Allergy Intermediate Hives. Verified 11/17/18 08:31 Penicillins Allergy Intermediate HIVES Verified 11/17/18 08:31 Llvorck-Pfi-Spn Reductase AdvReac Intermediate fatigue, Verified 11/17/18 08:31 Inhibitor extreme amoxicillin AdvReac Mild Hives Verified 11/17/18 08:31 Review of Systems Review of Systems Narrative: GENERAL: Denies chills,fever HEENT: Denies throat pain RESPIRATORY: Denies dyspnea, cough, wheezing CARDIOVASCULAR: Denies chest pain, palpitations GASTROINTESTINAL: Denies nausea, vomiting MUSCULOSKELETAL: Denies extremity pain, injury SKIN: See HPI NEUROLOGIC: Denies weakness, dizziness, headache, numbness 8 point review of systems is negative except for those stated above and HPI PFSH Medical History Benign prostatic hyperplasia with urinary obstruction (Chronic 03/25/15) Chicken pox (Resolved) Chronic back pain (Chronic 1989) 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 1995) Essential hypertension (Chronic) Femur fracture (Resolved 1965) Fracture (Resolved 1951) Gilbert's syndrome (Chronic) Hayfever (Chronic 1999) Hepatitis A (Resolved 1963) Kidney stones (Chronic 1984) Measles (Resolved) Melanoma (Resolved 1987) Mixed hyperlipidemia (Chronic) Mumps (Resolved) Peripheral vascular disease (Chronic 2009) Polymyalgia rheumatica (Chronic 08/30/15) Primary osteoarthritis of both hips (Chronic 08/30/15) Shoulder pain (Chronic 2011) Type 2 diabetes mellitus without complication (Chronic 06/20/15) Surgical History History of orthopedic surgery (Resolved 1965) Status post appendectomy (Resolved 1956) Status post coronary artery bypass graft (Resolved 1995) Family History Father Colon cancer Prostate enlargement Bladder cancer History of hip surgery Pneumonia History of prostate surgery Mother Diabetes mellitus Heart disease Hypertension High cholesterol Osteoporosis History of cataract surgery H/O heart bypass surgery Arthritis Grandfather Arthritis Prostate cancer Colon cancer Deaf Legally blind Grandmother Diabetes mellitus Hypertension Angina pectoris Heart disease Osteoporosis Social History marital status: number of children: 0 household members: spouse lives independently: Yes caregiver/support person: No housing: house pets and animals: Yes education level: other occupational status: other 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: 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 travel history: other leisure activities: other Smoking Status: Former smoker Tobacco: How many years used: 20 Smokeless tobacco user: other quit status: quit date established second hand exposure: No alcohol intake: current substance use type: does not use and marijuana Family History Father Colon cancer Prostate enlargement Bladder cancer History of hip surgery Pneumonia History of prostate surgery Mother Diabetes mellitus Heart disease Hypertension High cholesterol Osteoporosis History of cataract surgery H/O heart bypass surgery Arthritis Grandfather Arthritis Prostate cancer Colon cancer Deaf Legally blind Grandmother Diabetes mellitus Hypertension Angina pectoris Heart disease Osteoporosis Social History marital status: number of children: 0 household members: spouse lives independently: Yes caregiver/support person: No housing: house pets and animals: Yes education level: other occupational status: other 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 CARDIOVASCULAR: peripheral pulses in tact, cap refill <2 sec RESPIRATORY: No respiratory distress, speaks in full sentences without difficulty EXTREMITIES: Normal range of motion, no clubbing or edema. Neurovascularly intact NEUROLOGICAL: Cranial nerves II through XII grossly intact. Normal gait and speech. SKIN: 0.25 cm area mild oozing of blood no significant laceration Course Orders Ordered: Discontinued Medications Lidocaine/Epinephrine (Xylocaine 1% W/Epi) 1 ml SUBCUT NOW ONE Stop: 11/17/18 08:34 Last Admin: 11/17/18 08:45 Dose: 1 ml Documented by: EPHRAIM Vital Signs Vital signs: Vital Signs - 8 hr 11/17/18 08:32 Temperature 98.2 F Pulse Rate 67 Respiratory Rate 18 Blood Pressure 129/74 Pulse Oximetry 97 MDM - Wound/Laceration MDM Narrative Medical decision making narrative: Area injected with lidocaine with epi 2 mL and covered with surgicel. Discharge Plan Departure Patient Disposition: Home Clinical Impression: Laceration Discharge Date/Time: 11/17/18 08:57 Instructions: DI for Minor Laceration Activity Restrictions/Additional Instructions: *You have been diagnosed with small laceration *What to do: You may change bandage tomorrow. If bleeding persists apply pressure and hold above heart for 30 minutes. Ice may also help *Continue to take medications as directed *Follow up with your primary care provider in 2-3 days *Return to ER if you should have persistent bleeding despite adequate pressure and bleeding control methods, redness pus swelling or any new, worsening or concerning symptoms Prescriptions: No Action metformin 1,000 mg tablet 1,000 mg PO BIDCC Qty: 90 RF: 3 sertraline 50 mg tablet 50 mg PO QDAY Qty: 90 RF: 1 tamsulosin [Flomax] 0.4 mg capsule 0.4 mg PO BID Qty: 180 RF: 1 famotidine 20 mg tablet 20 mg PO BID Qty: 60 RF: 3 magnesium oxide 500 mg capsule 500 mg PO BID Qty: 60 RF: 3 hydrochlorothiazide 12.5 mg tablet 25 mg PO QDAY Qty: 180 RF: 3 potassium chloride 20 mEq tablet extended release 20 meq PO BID Qty: 60 RF: 4 isosorbide dinitrate 10 mg tablet 10 mg PO BID RF: 0 aspirin [Adult Low Dose Aspirin] 81 mg tablet,delayed release (DR/EC) 81 mg PO DAILY RF: 0 rosuvastatin 10 mg tablet 10 mg PO DAILY RF: 0 Victoza 2-Sandoval 0.6 mg/0.1 mL (18 mg/3 mL) pen injector 1.2 mg SUBCUT DAILY RF: 0 acetaminophen [Tylenol Extra Strength] 500 mg tablet See Rx Instructions PO .PRN PRNRF: 0 glipizide 10 mg tablet 10 mg PO BID RF: 0 Brilinta 90 mg tablet 90 mg PO BID Qty: 180 RF: 3 finasteride 5 mg tablet 5 mg PO DAILY Qty: 90 RF: 0 carvedilol 25 mg tablet 25 mg PO BID Qty: 60 RF: 0 (DME) True Metrix Glucose Test Strip strip 0 .ROUTE .MEDSUPPLY RF: 0 Referrals: Matt Medina MD [Primary Care Provider] -
== END 2018-11-17 08:57 | disposition home or self-care (01) ==
PROVIDERS: Emergency Provider Emergency Medicine; PCP Internal Medicine
DX: S51.812A Laceration without foreign body of left forearm, initial encounter (principal); W26.9XXA Contact with unspecified sharp object(s), initial encounter
CPT/HCPCS: 99283

== ENCOUNTER → 2018-11-21 10:57 | Outpatient (CLI) | payer MEDICARE, OTHER, SELFPAY ==
[2018-07-31 15:48] VITALS: BMI 27.1
--- NOTE | 2018-11-21 11:43 | DIET.PN ---
Dietary Progress Note Assessment: Mr Barbour was seen for 2nd diabetes nutrition follow up. 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 His Victoza has been increased from 0.6 to 1.2mg which he states caused him GI complications, so he reduced to 0.9mg and is tolerating well. Mr. Barbour recently started attending the Cardiopulmonary Rehab classes for 1 hr 3 x/week which is far more than he was doing prior to our last appointment. He also recently had labs done which show great improvement. He is currently wearing a CGM for 14 days which will be reviewed with endo to evaluate continued medication management. HT: 72 WT: 222 (no change) BMI: 30.1 Labs: A1c: 7.2 (10/09/18) 6.6 (11/15/18) *unsure which value is most appropriate Nutrition Diagnosis: Altered nutrition related laboratory values r/t impaired glucose tolerance aeb pt report, dx [id number], previous diet high in refined carbohydrates. Interventions: 1. Reviewed new labs including HbgA1c and Lipid Panel. 2. Reviewed food record. Recommended avoiding fruit for evening snack and replacing with protein and unsaturated fat if a snack is needed. 3. Suggested pt walk on alternating cardio rehab days for weight loss and to help with recent DX PAD. 4. Recommended pt keep a detailed food record while wearing CGM for review. Monitoring/Evaluations: F/U scheduled to discuss CGM results and strict dietary modifications based on readings.
== END ==
PROVIDERS: PCP Internal Medicine; Visit Provider Internal Medicine
DX: E11.9 Type 2 diabetes mellitus without complications (principal)
CPT/HCPCS: 97803

== ENCOUNTER → 2019-01-01 10:01 | Outpatient (CLI) | payer MEDICARE, OTHER, SELFPAY ==
[2018-07-31 15:48] VITALS: BMI 27.1
--- NOTE | 2019-01-01 10:51 | DIET.PN ---
Dietary Progress Note Assessment: Mr. Barbour is seen for 3rd diabetes nutrition f/u. He reports improvement in his BG. He recently wore a CGM which was reported to have mild fluctuations per pt report. He is now back up to the full 1.2 mg dose of victoza with the only reported complication of bloating and mild reflux. He continues to attend the cardiorehab classes for 1 hr/ 3x/wk. He feels he is getting stronger and feels a little more energy. Continues to crave sugar and snack at night after dinner. States even if he is not hungry he can always find something to eat. HT: 72 WT: 221# BMI: Labs: PHOEBEA: Freddy: Nutrition Diagnosis: Interventions: Diet Order: EER: Monitoring/Evaluations:
--- NOTE | 2019-01-01 10:58 | DIET.PN ---
Dietary Progress Note Assessment: Mr. Barbour is seen for 3rd diabetes nutrition f/u. He reports improvement in his BG. He recently wore a CGM which was reported to have mild fluctuations per pt report. He is now back up to the full 1.2 mg dose of victoza with the only reported complication of bloating and mild reflux. He continues to attend the cardiorehab classes for 1 hr/ 3x/wk. He feels he is getting stronger and feels a little more energy. Continues to crave sugar and snack at night after dinner. States even if he is not hungry he can always find something to eat. HT: 72 WT: 221# BMI: 30 Labs: A1c: 6.6 Nutrition Diagnosis: Altered nutrition related lab values r/t impaired glucose tolerance aeb pt report, dx diabetes, previous diet high in refined CHO. Interventions: 1. Reviewed pts food log. Pt will cut out all added sugar for the next 30 days. Discussed foods with added sugar and replacement foods for snacks. 2. Pt will join the [employer] [facility] and begin doing cardio/ weight lifting 2 d/wk that he does not have cardiorehab. 3. Pt will keep a 1 week food log of everything he eats to review at next appt. Monitoring/Evaluations: Wt, food record, BG log
== END ==
PROVIDERS: PCP Internal Medicine; Visit Provider Internal Medicine
DX: E11.9 Type 2 diabetes mellitus without complications (principal); E66.9 Obesity, unspecified; Z68.30 Body mass index [BMI] 30.0-30.9, adult; Z71.3 Dietary counseling and surveillance
CPT/HCPCS: 97803

== ENCOUNTER 2019-01-26 14:00 | Outpatient (RCR) | payer MEDICARE, OTHER, SELFPAY ==
[2018-07-31 15:48] VITALS: BMI 27.1
== END 2019-01-27 11:00 ==
LOC: CAR 14:00
PROVIDERS: PCP Internal Medicine; Visit Provider Specialist
DX: Z95.5 Presence of coronary angioplasty implant and graft (principal)
CPT/HCPCS: 93798

== ENCOUNTER → 2019-02-03 10:51 | Outpatient (CLI) | payer MEDICARE, OTHER, SELFPAY ==
[2018-07-31 15:48] VITALS: BMI 27.1
--- NOTE | 2019-02-03 14:07 | DIET.PN ---
Dietary Progress Note Assessment: Mr. Barbour is seen for 4th diabetes nutrition f/u. He reports he has not been monitoring his BG because of inaccuracy with his meters. He states meter was reading 40-50 mg/dl greater than one used in the hospital. His BG had been running in the 150's before he discontinued checking. He recently ordered a new meter which I encouraged him to start utilizing immediately. He also reports changes in his medication which he initiated. Prior to our previous appt, Mr. Barbour was up to 1.2 mg of victoza. This was causing him severe GI discomfort, bloating, gas, and reflux and therefore reduced his dose to 0.6 mg. He has chosen to discontinue victoza and start trulicity at the first of the year. 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 He has been attending cardiopulmonary rehab 3x/wk. It was brought to my attention he was experiencing some fatigue and low blood sugar during his classes. He is not monitoring BG or meal patterns during the day and admits he still snacks in the evening. He reports he is leaving [facility] for several weeks and plans to start Peripheral Arterial Disease (PAD) rehab upon returning. His weight remains fairly stable. HT: 72 WT: 223 BMI: 30.24 Labs: A1c: 6.6 Nutrition Diagnosis: Altered nutrition related lab values r/t impaired glucose tolerance aeb pt report, dx diabetes, previous diet high in refined CHO. Interventions: 1. Discussed importance of monitoring BG, especially in changing medications, to reduce the risk of hyper/hypoglycemia. 2. Reviewed food log. Discussed areas that need improvement. Reviewed CHO counting and portions needed at each meal. 3. Discussed options for avoiding/improving evening snacking. Pt does not appear ready for change in this area. 4. Discussed BG management and exercise. Provided educational material on risk of hypoglycemia during activity, CHO servings needed based on BG range, and sources of pre-workout CHO. Monitoring/Evaluations: F/u schedule for 1 mo. He is due for new labs. We will plan to visit following next A1c.
== END ==
PROVIDERS: PCP Internal Medicine; Visit Provider Internal Medicine
DX: E11.9 Type 2 diabetes mellitus without complications (principal); Z79.84 Long term (current) use of oral hypoglycemic drugs; E66.9 Obesity, unspecified; Z71.3 Dietary counseling and surveillance; Z68.30 Body mass index [BMI] 30.0-30.9, adult
CPT/HCPCS: 97803

== ENCOUNTER → 2019-03-31 11:02 | Outpatient (CLI) | payer MEDICARE, OTHER, SELFPAY ==
[2018-07-31 15:48] VITALS: BMI 27.1
--- NOTE | 2019-03-31 12:16 | DIET.PN ---
INDIVIDUAL NUTRITION F/U ? ASSESS:? Mr. Barbour is a 78 yom?seen for diabetes nutrition F/U. He admits to eating poorly over the holiday and has noticed continued weight gain. He is still not monitoring his BG at home, but has it checked before each Peripheral Arterial Disease (PAD) Rehab. He report BG in the 100's dropping to the 80's-90's during activity. He has recently considered trying the ketogenic diet for accelerated weight loss. Discussed trying the local 12 week diabetes prevention program. Mr. Barbour has found it difficult to follow many of the recommendations discussed including portion control, carb counting, and the plate method. Perhaps a 12 week program with weekly check-ins will increase adherence and consistency in meal planning. ? LABS: A1c: 6.6 (new labs due) ? Weight: 229 (up 6 lb) ? DIET: B: premier protein or scrambled eggs w/ meat; L: sandwich, leftover D: soup; protein, starch, veg ? EXERCISE:??PAD rehab (2x/wk) ? NUTRITION Dx? 1. Altered nutrition related labs r/t type 2 DM, inconsistent carbohydrate intake as evidenced by pt report, dietary recall.?? ? INTERVENTION? 1. Discussed BG and importance of monitoring. Patient requests information on continuous glucose monitoring. 2. Reviewed food log. Patient discusses challenges in following eating plan. Interested in trying the Keto diet. Discussed benefits/barriers. 3. Agreed with patient, DPP would be a good program for patient. He will begin a 12 week program on Apr 14. ? MONITOR/EVALUATE: Pt receptive to information provided.? Will schedule follow-up after new labs.
== END ==
PROVIDERS: PCP Internal Medicine; Visit Provider Internal Medicine
DX: E11.9 Type 2 diabetes mellitus without complications (principal)
CPT/HCPCS: 97803

== ENCOUNTER 2019-04-30 14:00 | Outpatient (RCR) | payer MEDICARE, OTHER, SELFPAY ==
[2018-07-31 15:48] VITALS: BMI 27.1
== END 2019-08-20 07:19 ==
LOC: CAR 14:00
PROVIDERS: PCP Internal Medicine; Visit Provider Internal Medicine Cardiovascular Disease
DX: I70.213 Atherosclerosis of native arteries of extremities with intermittent claudication, bilateral legs (principal)
CPT/HCPCS: 93668

== ENCOUNTER → 2019-06-09 10:59 | Outpatient (CLI) | payer MEDICARE, OTHER, SELFPAY ==
[2018-07-31 15:48] VITALS: BMI 27.1
--- NOTE | 2019-06-09 | DI.MRI.S_ITS ---
PROCEDURE: MR LUMBAR SPINE WO CON INDICATIONS: Low back pain TECHNIQUE: Noncontrast sagittal T1 spin echo and T2 fast echo, sagittal STIR, axial T1 and T2 fast spin echo through the lumbar spine. In cases with scoliosis, additional coronal T2 fast spin echo may be performed. COMPARISON: None. FINDINGS: Image quality: Excellent. Alignment and Curvature: There is normal bony alignment. Bone Marrow: Marrow is of normal overall signal. No acute vertebral body compression fractures. Spinal Cord: Conus medullaris terminates at the T12-L1 level. Visualized cord demonstrates normal signal and size. Paraspinous Soft Tissues: No paravertebral masses. T12-L1: Bridging endplate osteophytes are seen. No significant neural foraminal or central canal narrowing can be seen. L1-L2: The disc height is well-preserved. Loss of disc signal is seen at this level. Mild generalized disc bulge is seen. No significant neural foraminal or central canal narrowing can be seen. L2-L3: The disc height and disc signal are relatively well-preserved. Mild generalized disc bulge is seen. Mild facet joint hypertrophy is seen. No significant neural foraminal or central canal narrowing can be seen. L3-L4: The disc height is well-preserved. Loss of disc signal is seen at this level. Moderate generalized disc bulge is seen. [id number] facet hypertrophy is seen. There is at least moderate right-sided and moderate left-sided neural foraminal narrowing seen. Moderate central canal narrowing is seen. L4-L5: The disc height is well-preserved. Loss of disc signal is seen at this level. At least moderate disc bulge is seen, which is eccentric to the right. Moderate facet hypertrophy is seen. There is moderate to severe left-sided and moderate right-sided neural foraminal narrowing seen. Moderate to severe central canal narrowing is seen, as on series 5 image 26. L5-S1: Mild to moderate loss of disc height and disc signal are seen. Moderate disc bulge is seen, which is eccentric to the left. Mild to moderate facet joint hypertrophy is seen. There is at least moderate bilateral neural foraminal narrowing seen, left worse than right. There is a degree of compression seen upon the exiting nerve roots. Moderate central canal narrowing is seen. 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 Dictated by: Sameer Urrutia M.D. on 06/09/2019 at 12:05 Approved by: Sameer Urrutia M.D. on 06/09/2019 at 12:09
== END ==
PROVIDERS: PCP Internal Medicine; Referring Provider Orthopaedic Surgery; Visit Provider Orthopaedic Surgery
DX: M54.5 Low back pain (principal); M47.816 Spondylosis without myelopathy or radiculopathy, lumbar region; M47.817 Spondylosis without myelopathy or radiculopathy, lumbosacral region
CPT/HCPCS: 72148

== ENCOUNTER → 2019-07-01 09:49 | Outpatient (CLI) | payer MEDICARE, OTHER, SELFPAY ==
[2018-07-31 15:48] VITALS: BMI 27.1
[2019-07-01 10:21] LABS: Add Manual Diff / Slide Review NO; Basophils Absolute Auto 100 /uL (0-100); Basophils Percent Auto 0.7 % (0-2); Eosinophils Absolute Auto 400 /uL (0-450); Eosinophils Percent Auto 4.5 % (2-4); Hematocrit 46.2 % (41-53); Hemoglobin 16.4 g/dL (13.5-17.5); Lymphocytes Absolute Auto 1800 /uL (1100-4500); Mean Corpuscular HGB Conc 35.5 % (30-36); Mean Corpuscular Hemoglobin 34.6 PG (26-34); Mean Corpuscular Volume 97.7 fL (80-100); Monocytes Absolute Auto 900 /uL (0-900); Neutrophils Absolute Auto 6500 /uL (1500-7000); Neutrophils Percent Auto 66.8 % (50-75); Platelet Count 219 X10^3/uL (150-400); Red Blood Cell Count 4.73 X10^6/uL (4.5-5.9); Red Cell Distribution Width 13.9 % (11.6-14.8); White Blood Cell Count 9.7 X10^3/uL (4.5-11.0)
[2019-07-01 10:29] LABS: Hemoglobin A1C% w Est Avg Glu 6.6 % (4.0-6.0)
[2019-07-01 10:31] LABS: Alanine Aminotransferase 25 IU/L (<50); Albumin 4.8 g/dL (3.5-5.0); Albumin Globulin Ratio 1.5 (1.0-2.8); Alkaline Phosphatase 84 U/L (38-126); Amylase 83 U/L (30-110); Aspartate Aminotransferase 40 IU/L (17-59); BUN Creatinine Ratio 20.7 (6-22); Bilirubin Total 1.5 mg/dL (0.2-1.3); Blood Urea Nitrogen 25 mg/dL (9-20); Calcium 9.6 mg/dL (8.4-10.2); Carbon Dioxide 29 mmol/L (22-32); Chloride 97 mmol/L (98-107); Globulin 3.1 g/dL (1.7-4.1); Glucose 176 mg/dL (80-110); HEMOLYSIS < 15 (0-50); Lipase 112 U/L (23-300); Potassium 4.2 mmol/L (3.4-5.1); Sodium 139 mmol/L (137-145); Total Protein 7.9 g/dL (6.3-8.2)
[2019-07-01 11:02] LABS: Erythrocyte Sedimentation Rate 9 MM/HR (0-15)
[2019-07-01 11:11] LABS: TSH w/ Reflex to FT4 4.76 uIU/mL (0.47-4.68)
[2019-07-01 11:38] LABS: Free T4, Direct Thyroxine 0.99 ng/dL (0.78-2.19)
== END ==
PROVIDERS: PCP Internal Medicine; Referring Provider Internal Medicine; Visit Provider Internal Medicine
DX: E11.65 Type 2 diabetes mellitus with hyperglycemia (principal); E78.2 Mixed hyperlipidemia; I10 Essential (primary) hypertension; I25.10 Atherosclerotic heart disease of native coronary artery without angina pectoris
CPT/HCPCS: 36415; 80053; 82150; 83036; 83690; 84439; 84443; 85025; 85651; 86140

== ENCOUNTER → 2019-07-03 10:50 | Outpatient (CLI) | payer MEDICARE, OTHER, SELFPAY ==
[2018-07-31 15:48] VITALS: BMI 27.1
--- NOTE | 2019-07-03 10:53 | DI.RAD.S_ITS ---
PROCEDURE: XR ACUTE ABDOMEN SERIES INDICATIONS: diarrhea TECHNIQUE: One view chest and two views of the abdomen were acquired. COMPARISON: [facility], CR, THORACIC SPINE 3 VIEWS, 01/21/2017, 11:00. [facility], CT, CT CHEST ABD PEL W CON, 07/14/2017, 14:33. FINDINGS: Surgical changes and devices: Post CABG changes are seen. Chest: Lungs are clear. Heart size is mildly enlarged. No pleural effusions. No pneumoperitoneum. Abdomen: Bowel gas pattern is normal. No suspicious calcifications. Visualized solid organ contours appear normal. Bones: No suspicious bony lesions. Degenerative changes are seen throughout, which are worst involving the right hip, where there is moderate to severe superior joint space narrowing with associated remodeling changes with subchondral sclerosis and osteophyte formation. IMPRESSION: Unremarkable abdomen. Focal right hip degenerative change. Cardiomegaly. Prior CABG. Dictated by: Sameer Urrutia M.D. on 07/03/2019 at 10:40 Approved by: Sameer Urrutia M.D. on 07/03/2019 at 10:41
== END ==
PROVIDERS: PCP Internal Medicine; Referring Provider Internal Medicine; Visit Provider Internal Medicine
DX: R19.7 Diarrhea, unspecified (principal); M25.751 Osteophyte, right hip; I51.7 Cardiomegaly; Z95.1 Presence of aortocoronary bypass graft
CPT/HCPCS: 74022

== ENCOUNTER 2019-09-15 17:29 | Emergency (ER) | payer MEDICARE, OTHER, SELFPAY ==
[2018-07-31 15:48] VITALS: BMI 27.1
[2019-09-15] VITALS (12 sets, daily range): BP systolic 162–196; BP diastolic 71–91; PULSE 60–80; RESP 22; TEMP 36.4; O2SAT 94–97; BMI 31.1
[2019-09-15 19:23] LABS: RBC Urine None Seen (0-5/HPF)
[2019-09-15 19:34] LABS: Bacteria Urine Few (2-10); Squamous Epithelial Cell Urine 0-1 /HPF (0-5/HPF); WBC Urine 5-10/HPF (0-5/HPF)
[2019-09-15 19:35] LABS: Culture Indicated Urine Specimen Cultured; Mucus Urine 1+ (Negative)
[2019-09-15 19:46] LABS: Add Manual Diff / Slide Review NO; Basophils Absolute Auto 100 /uL (0-100); Basophils Percent Auto 0.9 % (0-2); Eosinophils Absolute Auto 200 /uL (0-450); Eosinophils Percent Auto 1.8 % (2-4); Hematocrit 40.4 % (41-53); Hemoglobin 13.7 g/dL (13.5-17.5); Lymphocytes Absolute Auto 1500 /uL (1100-4500); Lymphocytes Percent Auto 14.3 % (25-40); Mean Corpuscular HGB Conc 33.9 % (30-36); Mean Corpuscular Hemoglobin 34.6 PG (26-34); Mean Corpuscular Volume 102.1 fL (80-100); Monocytes Absolute Auto 1000 /uL (0-900); Monocytes Percent Auto 9.4 % (3-14); Neutrophils Absolute Auto 7700 /uL (1500-7000); Neutrophils Percent Auto 73.6 % (50-75); Platelet Count 209 X10^3/uL (150-400); Red Blood Cell Count 3.96 X10^6/uL (4.5-5.9); Red Cell Distribution Width 14.4 % (11.6-14.8); White Blood Cell Count 10.4 X10^3/uL (4.5-11.0)
[2019-09-15] MEDS: SODIUM CHLORIDE 0.9% 1,000 ML 150 ML IV (19:54)
[2019-09-15 19:58] LABS: Albumin 4.4 g/dL (3.5-5.0); Albumin Globulin Ratio 1.5 (1.0-2.8); Alkaline Phosphatase 73 U/L (38-126); Amylase 113 U/L (30-110); Aspartate Aminotransferase 44 IU/L (17-59); BUN Creatinine Ratio 16.1 (6-22); Blood Urea Nitrogen 27 mg/dL (9-20); Calcium 9.4 mg/dL (8.4-10.2); Carbon Dioxide 21 mmol/L (22-32); Chloride 105 mmol/L (98-107); Estimated Glomerular Filt Rate 39.7 mL/min (>60); Glucose 134 mg/dL (80-110); Lipase 385 U/L (23-300); Sodium 137 mmol/L (137-145); Total Protein 7.4 g/dL (6.3-8.2)
--- NOTE | 2019-09-15 20:03 | DI.CT.S_ITS ---
PROCEDURE: CT ABDOMEN PELVIS W CON INDICATIONS: rlq pain TECHNIQUE: After the administration of intravenous contrast, 5 mm thick sections acquired from the diaphragm to the symphysis. 5 mm coronal and sagittal reformats were acquired. For radiation dose reduction, the following was used: automated exposure control, adjustment of mA and/or kV according to patient size. COMPARISON: [facility], CT, CT CHEST ABD PEL W CON, 07/14/2017, 14:33. FINDINGS: Image quality: Excellent. ABDOMEN: Lung bases: Lung bases are clear. Heart size is normal. Solid organs: Liver is normal in size and enhancement. Gallbladder is decompressed. Biliary system is non dilated. Pancreas enhances normally. Spleen is normal in size and enhancement. No adrenal nodules. Kidneys demonstrate normal size and enhancement with mild right-sided hydronephrosis secondary to a 8 mm obstructing stone at the right ureteral pelvic junction. Mild right perinephric stranding. No left-sided hydronephrosis. Left ureter is normal in course and caliber. Peritoneum and bowel: Bowel loops demonstrate normal wall thickness and caliber. No free fluid or air. Nodes and vessels: No retroperitoneal or mesenteric adenopathy by size criteria. Aorta and inferior vena cava are normal in size. Miscellaneous: No ventral hernias. PELVIS: Genitourinary: Bladder wall thickness is normal. Prostate is prominent as before with internal coarse calcifications. Miscellaneous: No pelvic adenopathy. Small left fat containing inguinal hernia without acute inflammation. Bones: No suspicious bony lesions. No vertebral body compression fractures. IMPRESSION: Obstructing 8 mm proximal right ureteral stone at the right UPJ. Mild associated right hydronephrosis and right perinephric stranding. Other chronic findings as above. Dictated by: Miky Ceja M.D. on 09/15/2019 at 21:22 Approved by: Miky Ceja M.D. on 09/15/2019 at 21:28
--- NOTE | 2019-09-15 20:22 | ED.ABDPAIN ---
HPI - Abdominal Pain <Guerline WillisRADHA trevino-BC - Last Filed: 09/15/19 22:08> General Chief Complaint: Abdominal Pain Stated Complaint: Intense Pain In Rt Side Abd Time Seen by Provider: 09/15/19 19:01 Source: patient and family Mode of arrival: Ambulatory Limitations: no limitations History of Present Illness HPI narrative: The patient is a 79-year-old male with history of type 2 diabetes, hyper lipidemia, hypertension, polymyalgia rheumatica who presents with a chief complaint of right lower quadrant pain radiating around to his back. He states he had gross hematuria last week, but that resolved. He denies any dysuria urgency or frequency. He does have history of a kidney stone, but 20 years ago or so. He also complains of diarrhea. He denies any fevers. He was taking ibuprofen for the pain, but that is no longer working. He states the pain starts in his right lower quadrant radiating around to his back. Does have history of an appendectomy. The patient does have an appointment with Urology next week. Related Data Home Medications Medication Instructions Recorded Confirmed finasteride 5 mg tablet 5 mg PO DAILY #90 tab 07/14/18 09/15/19 aspirin 81 mg tablet,delayed 81 mg PO DAILY 09/09/18 09/15/19 release carvedilol 25 mg tablet 25 mg PO BID #60 tab 09/09/18 09/15/19 glipizide 10 mg tablet 10 mg PO DAILY tab 07/03/19 09/15/19 ibuprofen 200 mg capsule 400 mg PO DAILY PRN cap 07/03/19 09/15/19 rosuvastatin 20 mg tablet 20 mg PO DAILY tab 07/03/19 09/15/19 famotidine 20 mg PO BID 09/15/19 09/15/19 metformin 1,000 mg PO BID 09/15/19 09/15/19 Previous Rx's Medication Instructions Recorded potassium chloride 20 mEq 20 meq PO BID #60 tab 10/29/18 tablet,extended release tamsulosin 0.4 mg capsule 0.4 mg PO BID #180 tab 05/25/19 sertraline 100 mg tablet 100 mg PO DAILY #90 tab 06/30/19 hydrochlorothiazide 12.5 mg tablet 12.5 mg PO BID #180 tab 08/27/19 valacyclovir 1 gram tablet 1,000 mg PO TID #15 tab 09/09/19 hydrocodone-acetaminophen 1 tab PO Q4-6H PRN #10 tab 09/15/19 ondansetron 4 mg PO Q6H PRN #20 tab 09/15/19 Allergies Allergy/AdvReac Type Severity Reaction Status Date / Time clavulanic acid Allergy Severe Rash/Hives Verified 07/03/19 10:11 [From Augmentin] - internal reaction clopidogrel [From Plavix] Allergy Intermediate Hives. Verified 07/03/19 10:11 Penicillins Allergy Intermediate HIVES Verified 07/03/19 10:11 [id number]-Yxm Reductase AdvReac Intermediate fatigue, Verified 07/03/19 10:11 Inhibitor extreme amoxicillin AdvReac Mild Hives Verified 07/03/19 10:11 Review of Systems <CALVIN Cross - Last Filed: 09/15/19 22:08> Review of Systems Narrative: GENERAL: Denies chills, fatigue, malaise, fever, sweats. HEENT: Denies sinus pain, ear pain, sore throat, difficulty swallowing, dizziness. RESPIRATORY: Denies dyspnea, cough, wheezing, hemoptysis, sputum. CARDIOVASCULAR: Denies chest pain, palpitations, orthopnea, edema, GASTROINTESTINAL: See HPI : See HPI MUSCULOSKELETAL: denies weakness, joint pain, or bony pain SKIN: Denies rash, skin lesions, or other NEUROLOGIC: Denies weakness, headache, numbness, change in speech, confusion, seizures, incoordination. PSYCHIATRIC: No concerning psychosocial issues. 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) Essential hypertension (Chronic) Femur fracture (Resolved 1965) Fracture (Resolved 1951) Gilbert's syndrome (Chronic) Hayfever (Chronic 1999) Hepatitis A (Resolved 1963) Kidney stones (Chronic 1984) Measles (Resolved) Melanoma (Resolved 1987) Mixed hyperlipidemia (Chronic) Mumps (Resolved) Peripheral vascular disease (Chronic 2009) Polymyalgia rheumatica (Chronic 08/30/15) Primary osteoarthritis of both hips (Chronic 08/30/15) Shoulder pain (Chronic 2011) Type 2 diabetes mellitus without complication (Chronic 06/20/15) Surgical History History of orthopedic surgery (Resolved 1965) Status post appendectomy (Resolved 1956) Status post coronary artery bypass graft (Resolved 1995) Family History Father Colon cancer Prostate enlargement Bladder cancer History of hip surgery Pneumonia History of prostate surgery Mother Diabetes mellitus Heart disease Hypertension High cholesterol Osteoporosis History of cataract surgery H/O heart bypass surgery Arthritis Grandfather Arthritis Prostate cancer Colon cancer Deaf Legally blind Grandmother Diabetes mellitus Hypertension Angina pectoris Heart disease Osteoporosis Social History marital status: number of children: 0 household members: spouse lives independently: Yes caregiver/support person: No housing: house pets and animals: Yes education level: other occupational status: other 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 Normocephalic. No temporal or scalp tenderness. EYES: Pupils equal round and reactive. Extraocular motions intact. No scleral icterus. No injection or drainage. ENT: Nose without bleeding, purulent drainage or septal hematoma. Airway patent. NECK: Trachea midline. No JVD or lymphadenopathy. Supple, nontender, no meningeal signs. CARDIOVASCULAR: Regular rate and rhythm without murmurs, gallops, or rubs. RESPIRATORY: Clear to auscultation. Breath sounds equal bilaterally. No wheezes, rales, or rhonchi. No cough. No increased respiratory effort. Speaking full sentences. GASTROINTESTINAL: Abdomen soft, active bowel sounds all 4 quadrants, nondistended. No hepato-splenomegaly, or palpable masses. No guarding. Pain to palpation right lower quadrant. BACK: Nontender without deformity or crepitance. No CVA tenderness bilaterally NEURO: AOx3. Stable gait. Age appropriate. SKIN: No rash or erythema on visible skin. Initial Vital Signs Initial Vital Signs: Vital Signs Temperature 97.6 F 09/15/19 17:40 Pulse Rate 60 09/15/19 17:40 Respiratory Rate 22 09/15/19 17:40 Blood Pressure 195/87 H 09/15/19 17:40 Pulse Oximetry 96 09/15/19 17:40 <Edwardo Coello DO - Last Filed: 09/15/19 23:40> Initial Vital Signs Initial Vital Signs: Vital Signs Temperature 97.6 F 09/15/19 17:40 Pulse Rate 60 09/15/19 17:40 Respiratory Rate 22 09/15/19 17:40 Blood Pressure 195/87 H 09/15/19 17:40 Pulse Oximetry 96 09/15/19 17:40 Scores <CALVIN Cross - Last Filed: 09/15/19 22:08> GCS Eb[place]zer coma scale eye opening: Spontaneous [place] coma scale verbal response: Orientated [place] coma scale motor response: Obey commands Eb[place] coma scale total score: 15 Course <CALVIN Cross - Last Filed: 09/15/19 22:08> Orders Ordered: ED Orders 09/15/19 19:21 Urine Culture Stat Urine Microscopic Stat 09/15/19 19:30 Amylase Stat Complete Blood Count AUTO DIFF Stat Comprehensive Metabolic Panel Stat Lactate (Lactic Acid) Stat Lipase Stat 09/15/19 20:03 CT abdomen pelvis w con Stat Discontinued Medications Hydrocodone Bitart/Acetaminophen ([place] 5/325) 1 tab PO NOW ONE Stop: 09/15/19 21:41 Last Admin: 09/15/19 21:52 Dose: 1 tab Documented by: LIZ Hydrocodone Bitart/Acetaminophen (Vicodin 5/325 Prepack) 1 bottle MISC SEEINSTR ONE Stop: 09/15/19 21:41 Last Admin: 09/15/19 21:52 Dose: 1 bottle Documented by: LIZ Sodium Chloride (Normal Saline 0.9%) 1,000 mls @ 150 mls/hr IV CONT MARY Last Infusion: 09/15/19 21:04 Dose: 0 mls/hr Documented by: Infusion: 09/15/19 20:10 Dose: 999 mls/hr Documented by: Admin: 09/15/19 19:54 Dose: 150 mls/hr Documented by: LIZ Sodium Chloride (Normal Saline 0.9%) 1,000 mls @ 1,000 mls/hr IV BOLUS ONE Stop: 09/15/19 21:02 Last Admin: 09/15/19 20:10 Dose: Not Given Documented by: LIZ Morphine Sulfate (Morphine) 2 mg IV NOW ONE Stop: 09/15/19 20:46 Last Admin: 09/15/19 21:04 Dose: 2 mg Documented by: LIZ Ondansetron HCl (Zofran) 4 mg IV NOW ONE Stop: 09/15/19 20:46 Last Admin: 09/15/19 21:04 Dose: 4 mg Documented by: LIZ Ondansetron HCl (Zofran Odt Prepack) 1 bottle MISC SEEINSTR ONE Stop: 09/15/19 21:41 Last Admin: 09/15/19 21:52 Dose: 1 bottle Documented by: LIZ Vital Signs Vital signs: Vital Signs - 8 hr 09/15/19 17:40 09/15/19 19:05 09/15/19 19:06 Temperature 97.6 F Pulse Rate 60 70 Respiratory Rate 22 Blood Pressure 195/87 H 175/83 H Pulse Oximetry 96 97 95 09/15/19 19:30 09/15/19 19:31 09/15/19 20:00 Temperature Pulse Rate 65 65 67 Respiratory Rate Blood Pressure 162/71 H 167/76 H Pulse Oximetry 94 95 95 09/15/19 20:30 09/15/19 20:31 09/15/19 21:00 Temperature Pulse Rate 80 69 65 Respiratory Rate Blood Pressure 192/91 H Pulse Oximetry 94 96 95 09/15/19 21:01 09/15/19 21:30 09/15/19 21:35 Temperature Pulse Rate 65 60 65 Respiratory Rate Blood Pressure 196/89 H 174/84 H Pulse Oximetry 95 95 96 <Edwardo Coello DO - Last Filed: 09/15/19 23:40> Orders Ordered: ED Orders 09/15/19 19:21 Urine Culture Stat Urine Microscopic Stat 09/15/19 19:30 Amylase Stat Complete Blood Count AUTO DIFF Stat Comprehensive Metabolic Panel Stat Lactate (Lactic Acid) Stat Lipase Stat 09/15/19 20:03 CT abdomen pelvis w con Stat Discontinued Medications Hydrocodone Bitart/Acetaminophen ([place] 5/325) 1 tab PO NOW ONE Stop: 09/15/19 21:41 Last Admin: 09/15/19 21:52 Dose: 1 tab Documented by: LIZ Hydrocodone Bitart/Acetaminophen (Vicodin 5/325 Prepack) 1 bottle MISC SEEINSTR ONE Stop: 09/15/19 21:41 Last Admin: 09/15/19 21:52 Dose: 1 bottle Documented by: LIZ Sodium Chloride (Normal Saline 0.9%) 1,000 mls @ 150 mls/hr IV CONT MARY Last Infusion: 09/15/19 21:04 Dose: 0 mls/hr Documented by: Infusion: 09/15/19 20:10 Dose: 999 mls/hr Documented by: Admin: 09/15/19 19:54 Dose: 150 mls/hr Documented by: LIZ Sodium Chloride (Normal Saline 0.9%) 1,000 mls @ 1,000 mls/hr IV BOLUS ONE Stop: 09/15/19 21:02 Last Admin: 09/15/19 20:10 Dose: Not Given Documented by: LZI Morphine Sulfate (Morphine) 2 mg IV NOW ONE Stop: 09/15/19 20:46 Last Admin: 09/15/19 21:04 Dose: 2 mg Documented by: LIZ Ondansetron HCl (Zofran) 4 mg IV NOW ONE Stop: 09/15/19 20:46 Last Admin: 09/15/19 21:04 Dose: 4 mg Documented by: LIZ Ondansetron HCl (Zofran Odt Prepack) 1 bottle MISC SEEINSTR ONE Stop: 09/15/19 21:41 Last Admin: 09/15/19 21:52 Dose: 1 bottle Documented by: LIZ Vital Signs Vital signs: Vital Signs - 8 hr 09/15/19 17:40 09/15/19 19:05 09/15/19 19:06 Temperature 97.6 F Pulse Rate 60 70 Respiratory Rate 22 Blood Pressure 195/87 H 175/83 H Pulse Oximetry 96 97 95 09/15/19 19:30 09/15/19 19:31 09/15/19 20:00 Temperature Pulse Rate 65 65 67 Respiratory Rate Blood Pressure 162/71 H 167/76 H Pulse Oximetry 94 95 95 09/15/19 20:30 09/15/19 20:31 09/15/19 21:00 Temperature Pulse Rate 80 69 65 Respiratory Rate Blood Pressure 192/91 H Pulse Oximetry 94 96 95 09/15/19 21:01 09/15/19 21:30 09/15/19 21:35 Temperature Pulse Rate 65 60 65 Respiratory Rate Blood Pressure 196/89 H 174/84 H Pulse Oximetry 95 95 96 MDM - Abdominal Pain <RADHA Cross- - Last Filed: 09/15/19 22:08> Lab Data Result diagrams: 09/15/19 19:30 09/15/19 19:30 Labs: Lab Results 09/15/19 09/15/19 09/15/19 Range/Units 19:21 19:30 19:30 WBC 10.4 (4.5-11.0) X10^3/uL RBC 3.96 L (4.5-5.9) X10^6/uL Hgb 13.7 (13.5-17.5) g/dL Hct 40.4 L (41-53) % MCV 102.1 H (80-100) fL MCH 34.6 H (26-34) PG MCHC 33.9 (30-36) % RDW 14.4 (11.6-14.8) % Plt Count 209 (150-400) X10^3/uL Neut % (Auto) 73.6 (50-75) % Lymph % (Auto) 14.3 L (25-40) % [place] % (Auto) 9.4 (3-14) % Eos % (Auto) 1.8 L (2-4) % Baso % (Auto) 0.9 (0-2) % Neut # (Auto) 7700 H (3631-8125) /uL Lymph # (Auto) 1500 (5245-6886) /uL [place] # (Auto) 1000 H (0-900) /uL Eos # (Auto) 200 (0-450) /uL Baso # (Auto) 100 (0-100) /uL Sodium 137 (137-145) mmol/L Potassium 4.0 (3.4-5.1) mmol/L Chloride 105 (98-107) mmol/L Carbon Dioxide 21 L (22-32) mmol/L BUN 27 H (9-20) mg/dL Creatinine 1.68 H (0.66-1.25) mg/dL Estimated GFR 39.7 L (>60) mL/min BUN/Creatinine Ratio 16.1 (6-22) Glucose 134 H (80-110) mg/dL Lactate (0.7-2.1) mmol/L Calcium 9.4 (8.4-10.2) mg/dL Total Bilirubin 1.0 (0.2-1.3) mg/dL AST 44 (17-59) IU/L Alkaline Phosphatase 73 (38-126) U/L Total Protein 7.4 (6.3-8.2) g/dL Albumin 4.4 (3.5-5.0) g/dL Globulin 3.0 (1.7-4.1) g/dL Albumin/Globulin Ratio 1.5 (1.0-2.8) Amylase 113 H (30-110) U/L Lipase 385 H (23-300) U/L Urine RBC None seen (0-5/HPF) Urine WBC 5-10/hpf H (0-5/HPF) Ur Squamous Epith Cells 0-1 /hpf (0-5/HPF) Urine Bacteria Few (2-10) H (None) Urine Mucus 1+ H (Negative) Ur Culture Indicated? Specimen cultured 09/15/19 Range/Units 19:30 WBC (4.5-11.0) X10^3/uL RBC (4.5-5.9) X10^6/uL Hgb (13.5-17.5) g/dL Hct (41-53) % MCV (80-100) fL MCH (26-34) PG MCHC (30-36) % RDW (11.6-14.8) % Plt Count (150-400) X10^3/uL Neut % (Auto) (50-75) % Lymph % (Auto) (25-40) % [place] % (Auto) (3-14) % Eos % (Auto) (2-4) % Baso % (Auto) (0-2) % Neut # (Auto) (7337-9917) /uL Lymph # (Auto) (3026-9262) /uL [place] # (Auto) (0-900) /uL Eos # (Auto) (0-450) /uL Baso # (Auto) (0-100) /uL Sodium (137-145) mmol/L Potassium (3.4-5.1) mmol/L Chloride (98-107) mmol/L Carbon Dioxide (22-32) mmol/L BUN (9-20) mg/dL Creatinine (0.66-1.25) mg/dL Estimated GFR (>60) mL/min BUN/Creatinine Ratio (6-22) Glucose (80-110) mg/dL Lactate 1.0 (0.7-2.1) mmol/L Calcium (8.4-10.2) mg/dL Total Bilirubin (0.2-1.3) mg/dL AST (17-59) IU/L Alkaline Phosphatase (38-126) U/L Total Protein (6.3-8.2) g/dL Albumin (3.5-5.0) g/dL Globulin (1.7-4.1) g/dL Albumin/Globulin Ratio (1.0-2.8) Amylase (30-110) U/L Lipase (23-300) U/L Urine RBC (0-5/HPF) Urine WBC (0-5/HPF) Ur Squamous Epith Cells (0-5/HPF) Urine Bacteria (None) Urine Mucus (Negative) Ur Culture Indicated? Point of care testing: Urine Dip Bedside Urine Glucose Negative Bedside Urine Bilirubin - Negative Bedside Urine Ketone - Negative Urine Specific [place] 1.025 Bedside Urine Occult Blood - Negative Bedside Urine pH 6.0 Bedside Urine Protein + 30 Bedside Urine Urobilinogen - Negative Bedside Urine Nitrite - Negative Bedside Urine Leukocytes +/- [address] scan - abdomen/pelvis: Radiologist's Impression: [address] [place] [id number] Scan Report Signed Patient: Kris Barbour RMR#: [id number] : 2Acct:[id number] Age/Sex: 79 / MDate of Service: 09/15/19 Loc: ED Accession Number: [id number] Procedure: CT abdomen pelvis w con Ordering Provider: Guerline WaiteBC PROCEDURE: CT ABDOMEN PELVIS W CON INDICATIONS: rlq pain TECHNIQUE: After the administration of intravenous contrast, 5 mm thick sections acquired from the diaphragm to the symphysis. 5 mm coronal and sagittal reformats were acquired. For radiation dose reduction, the following was used: automated exposure control, adjustment of mA and/or kV according to patient size. COMPARISON: [facility], CT, CT CHEST ABD PEL W CON, 07/14/2017, 14:33. FINDINGS: Image quality: Excellent. ABDOMEN: Lung bases: Lung bases are clear. Heart size is normal. Solid organs: Liver is normal in size and enhancement. Gallbladder is decompressed. Biliary system is non dilated. Pancreas enhances normally. Spleen is normal in size and enhancement. No adrenal nodules. Kidneys demonstrate normal size and enhancement with mild right-sided hydronephrosis secondary to a 8 mm obstructing stone at the right ureteral pelvic junction. Mild right perinephric stranding. No left-sided hydronephrosis. Left ureter is normal in course and caliber. Peritoneum and bowel: Bowel loops demonstrate normal wall thickness and caliber. No free fluid or air. Nodes and vessels: No retroperitoneal or mesenteric adenopathy by size criteria. Aorta and inferior vena cava are normal in size. Miscellaneous: No ventral hernias. PELVIS: Genitourinary: Bladder wall thickness is normal. Prostate is prominent as before with internal coarse calcifications. Miscellaneous: No pelvic adenopathy. Small left fat containing inguinal hernia without acute inflammation. Bones: No suspicious bony lesions. No vertebral body compression fractures. IMPRESSION: Obstructing 8 mm proximal right ureteral stone at the right UPJ. Mild associated right hydronephrosis and right perinephric stranding. Other chronic findings as above. Dictated by: Miky Ceja M.D. on 09/15/2019 at 21:22 Approved by: Miky Ceja M.D. on 09/15/2019 at 21:28 MDM Narrative Medical decision making narrative: The patient is a 71-year-old male who presents with right lower quadrant pain. CT shows 8 mm kidney stone at right UPJ. Urine has no signs of infection. No leukocytosis. Urine is also reassuring with no nitrates, patient has no dysuria urgency or frequency. I discussed at length pushing fluids, pain medication, nausea medication. The patient has an appointment next week with his urologist, encouraged them to call him in the morning to ensure follow-up. The patient is already on tamsulosin. He was given [place] and Zofran for pain. Will hold off on ketorolac at this point time given that the patient is on a blood thinner. Encouraged at length return precautions of fever, signs of infection etcetera. I did speak with Dr. Crews given the patient's increasing creatinine, discussed with the patient holding off on NSAIDs, follow-up with him. Encourage patient to lay on side according to Dr. Crews as instructions. Patient and have no questions or concerns upon discharge and state understanding of return precautions as well as follow-up care. <Edwardo Coello, - Last Filed: 09/15/19 23:40> Lab Data Labs: Lab Results 09/15/19 09/15/19 09/15/19 Range/Units 19:21 19:30 19:30 WBC 10.4 (4.5-11.0) X10^3/uL RBC 3.96 L (4.5-5.9) X10^6/uL Hgb 13.7 (13.5-17.5) g/dL Hct 40.4 L (41-53) % MCV 102.1 H (80-100) fL MCH 34.6 H (26-34) PG MCHC 33.9 (30-36) % RDW 14.4 (11.6-14.8) % Plt Count 209 (150-400) X10^3/uL Neut % (Auto) 73.6 (50-75) % Lymph % (Auto) 14.3 L (25-40) % [place] % (Auto) 9.4 (3-14) % Eos % (Auto) 1.8 L (2-4) % Baso % (Auto) 0.9 (0-2) % Neut # (Auto) 7700 H (2653-4820) /uL Lymph # (Auto) 1500 (0878-7574) /uL [place] # (Auto) 1000 H (0-900) /uL Eos # (Auto) 200 (0-450) /uL Baso # (Auto) 100 (0-100) /uL Sodium 137 (137-145) mmol/L Potassium 4.0 (3.4-5.1) mmol/L Chloride 105 (98-107) mmol/L Carbon Dioxide 21 L (22-32) mmol/L BUN 27 H (9-20) mg/dL Creatinine 1.68 H (0.66-1.25) mg/dL Estimated GFR 39.7 L (>60) mL/min BUN/Creatinine Ratio 16.1 (6-22) Glucose 134 H (80-110) mg/dL Lactate (0.7-2.1) mmol/L Calcium 9.4 (8.4-10.2) mg/dL Total Bilirubin 1.0 (0.2-1.3) mg/dL AST 44 (17-59) IU/L Alkaline Phosphatase 73 (38-126) U/L Total Protein 7.4 (6.3-8.2) g/dL Albumin 4.4 (3.5-5.0) g/dL Globulin 3.0 (1.7-4.1) g/dL Albumin/Globulin Ratio 1.5 (1.0-2.8) Amylase 113 H (30-110) U/L Lipase 385 H (23-300) U/L Urine RBC None seen (0-5/HPF) Urine WBC 5-10/hpf H (0-5/HPF) Ur Squamous Epith Cells 0-1 /hpf (0-5/HPF) Urine Bacteria Few (2-10) H (None) Urine Mucus 1+ H (Negative) Ur Culture Indicated? Specimen cultured 09/15/19 Range/Units 19:30 WBC (4.5-11.0) X10^3/uL RBC (4.5-5.9) X10^6/uL Hgb (13.5-17.5) g/dL Hct (41-53) % MCV (80-100) fL MCH (26-34) PG MCHC (30-36) % RDW (11.6-14.8) % Plt Count (150-400) X10^3/uL Neut % (Auto) (50-75) % Lymph % (Auto) (25-40) % [place] % (Auto) (3-14) % Eos % (Auto) (2-4) % Baso % (Auto) (0-2) % Neut # (Auto) (8912-5529) /uL Lymph # (Auto) (2319-6396) /uL [place] # (Auto) (0-900) /uL Eos # (Auto) (0-450) /uL Baso # (Auto) (0-100) /uL Sodium (137-145) mmol/L Potassium (3.4-5.1) mmol/L Chloride (98-107) mmol/L Carbon Dioxide (22-32) mmol/L BUN (9-20) mg/dL Creatinine (0.66-1.25) mg/dL Estimated GFR (>60) mL/min BUN/Creatinine Ratio (6-22) Glucose (80-110) mg/dL Lactate 1.0 (0.7-2.1) mmol/L Calcium (8.4-10.2) mg/dL Total Bilirubin (0.2-1.3) mg/dL AST (17-59) IU/L Alkaline Phosphatase (38-126) U/L Total Protein (6.3-8.2) g/dL Albumin (3.5-5.0) g/dL Globulin (1.7-4.1) g/dL Albumin/Globulin Ratio (1.0-2.8) Amylase (30-110) U/L Lipase (23-300) U/L Urine RBC (0-5/HPF) Urine WBC (0-5/HPF) Ur Squamous Epith Cells (0-5/HPF) Urine Bacteria (None) Urine Mucus (Negative) Ur Culture Indicated? Point of care testing: Urine Dip Bedside Urine Glucose Negative Bedside Urine Bilirubin - Negative Bedside Urine Ketone - Negative Urine Specific [place] 1.025 Bedside Urine Occult Blood - Negative Bedside Urine pH 6.0 Bedside Urine Protein + 30 Bedside Urine Urobilinogen - Negative Bedside Urine Nitrite - Negative Bedside Urine Leukocytes +/- 15 Esterase Discharge Plan Departure Patient Disposition: Home Clinical Impression: Kidney stones Discharge Date/Time: 09/15/19 22:20 Instructions: DI for Kidney Stones Activity Restrictions/Additional Instructions: Thank you for trusting us with your care today. Discussed, you have an 8 mm stone at your right utero pelvic junction. This is the beginning of the ureter, where the ureter meets the kidney. I have given you medications for nausea and pain. As discussed, please follow-up with primary care provider as well as Urology.I spoke with Dr Crews about you tonight. Please monitor for signs of infection such as fever, burning when you urinate etcetera. As discussed, please stop taking all ibuprofen Aleve or any other NSAIDs. It is suggested that you lay on her right side to help your stone moved. Prescriptions: New ondansetron 4 mg tablet,disintegrating 4 mg PO Q6H PRN (Reason: nausea and vomiting) Qty: 20 RF: 0 hydrocodone-acetaminophen 5-325 mg tablet 1 tab PO Q4-6H PRN (Reason: pain) Qty: 10 RF: 0 No Action potassium chloride 20 mEq tablet extended release 20 meq PO BID Qty: 60 RF: 4 tamsulosin [Flomax] 0.4 mg capsule 0.4 mg PO BID Qty: 180 RF: 1 sertraline 100 mg tablet 100 mg PO DAILY Qty: 90 RF: 0 hydrochlorothiazide 12.5 mg tablet 12.5 mg PO BID Qty: 180 RF: 1 valacyclovir 1 gram tablet 1,000 mg PO TID Qty: 15 RF: 1 aspirin [Adult Low Dose Aspirin] 81 mg tablet,delayed release (DR/EC) 81 mg PO DAILY RF: 0 finasteride 5 mg tablet 5 mg PO DAILY Qty: 90 RF: 0 carvedilol 25 mg tablet 25 mg PO BID Qty: 60 RF: 0 rosuvastatin 20 mg tablet 20 mg PO DAILY RF: 0 glipizide 10 mg tablet 10 mg PO DAILY RF: 0 ibuprofen 200 mg capsule 400 mg PO DAILY PRN (Reason: Pain (Scale Score 1-3)) RF: 0 famotidine 20 mg tablet 20 mg PO BID RF: 0 metformin 1,000 mg tablet 1,000 mg PO BID RF: 0 Referrals: Pam Crews MD [Physician] - Matt Medina MD [Primary Care Provider] - <Edwardo Coello DO - Last Filed: 09/15/19 23:40> Cosign ED Attending Cosignature Attestation: I was immediately available in the department for consultation. This documentation has been reviewed and I agree with assessment and plan. Supervised by Edwardo Coello DO
[2019-09-15] MEDS: MORPHINE 2 MG/ML INJ IV (21:04)
[2019-09-15] MEDS: ONDANSETRON 4 MG/2 ML INJ IV (21:04)
[2019-09-15] MEDS: ONDANSETRON 4 MG ODT PREPACK 1 BOTTLE MISC (21:52)
[2019-09-15] MEDS: HYDROCODONE/ACET 5/325 TABLET 1 TAB PO (21:52)
[2019-09-15] MEDS: HYDROCODONE/ACET 5/325 PREPACK 1 BOTTLE MISC (21:52)
[2019-09-16 14:35] LABS: Alanine Aminotransferase 22 IU/L (<50)
[2019-09-16 14:38] LABS: HEMOLYSIS 71 (0-50)
== END 2019-09-15 22:20 | disposition home or self-care (01) ==
PROVIDERS: Emergency Provider Nurse Practitioner Family; PCP Internal Medicine
DX: N20.0 Calculus of kidney (principal)
CPT/HCPCS: 36415; 74177; 80053; 81003; 81015; 82150; 83605; 83690; 85025; 87086; 96361; 96374; 96375; 99284; J2270; J2405

== ENCOUNTER → 2019-09-21 12:34 | Outpatient (CLI) | payer MEDICARE, OTHER, SELFPAY ==
[2018-07-31 15:48] VITALS: BMI 27.1
--- NOTE | 2019-09-21 12:36 | DI.RAD.S_ITS ---
PROCEDURE: XR KUB INDICATIONS: kidney stones TECHNIQUE: One view of the abdomen acquired. COMPARISON: [facility], CR, XR ACUTE ABDOMEN SERIES, 07/03/2019, 11:01. FINDINGS: Surgical changes and devices: None. Bowel: Bowel gas pattern is normal. Soft tissues: No suspicious abdominal calcifications. Visualized solid organ contours appear normal in size. Bones: No suspicious bony lesions. IMPRESSION: No urinary tract stone is found. A left lower lateral pelvic phlebolith is again noted, centrally lucent. Dictated by: Wyatt Echols M.D. on 09/21/2019 at 14:07 Approved by: Wyatt Echols M.D. on 09/21/2019 at 14:08
== END ==
PROVIDERS: PCP Internal Medicine; Referring Provider Internal Medicine; Visit Provider Internal Medicine
DX: N20.0 Calculus of kidney (principal)
CPT/HCPCS: 74018

== ENCOUNTER → 2019-09-22 11:40 | Outpatient (CLI) | payer MEDICARE, OTHER, SELFPAY ==
[2018-07-31 15:48] VITALS: BMI 27.1
[2019-09-23 23:22] LABS: COVID19 Sendout Not Detected (Not Detect)
== END ==
PROVIDERS: PCP Internal Medicine; Visit Provider Physician Assistant
DX: Z01.812 Encounter for preprocedural laboratory examination (principal)
CPT/HCPCS: 87635

== ENCOUNTER → 2019-10-02 15:12 | Outpatient (CLI) | payer MEDICARE, OTHER, SELFPAY ==
[2018-07-31 15:48] VITALS: BMI 27.1
[2019-10-05 21:07] LABS: COVID19 Sendout Not Detected (Not Detect)
== END ==
PROVIDERS: PCP Internal Medicine; Visit Provider Physician Assistant
DX: Z11.59 Encounter for screening for other viral diseases (principal)
CPT/HCPCS: 87635

== ENCOUNTER 2019-10-05 14:34 | Day surgery (SDC) | payer MEDICARE, OTHER, SELFPAY ==
[2018-07-31 15:48] VITALS: BMI 27.1
[2019-09-30 12:03] VITALS: BMI 30.5
[2019-10-05] VITALS (8 sets, daily range): BP systolic 145–168; BP diastolic 77–89; PULSE 60–71; RESP 14–16; TEMP 36.2–36.3; O2SAT 95–98; BMI 29.8
--- NOTE | 2019-10-05 | DI.RAD.S_ITS ---
PROCEDURE: XR ABDOMEN 1V INDICATIONS: CYSTO RIGHT STENT PLACEMENT TECHNIQUE: One view of the abdomen acquired. COMPARISON: [facility], CR, XR KUB, 09/21/2019, 12:49. FINDINGS: Spot fluoroscopic intraoperative views demonstrating placement of right ureteral stent. The distal/inferior portion of the stent is not included on the study Dictated by: Ant Marshall M.D. on 10/06/2019 at 9:13 Approved by: Ant Marshall M.D. on 10/06/2019 at 9:14
[2019-10-05] MEDS: VANCOMYCIN 1,000 MG/200 ML PIGGYBACK 200 MG IV (14:57)
[2019-10-05] MEDS: LACTATED RINGERS 1,000 ML 42 ML IV (14:57)
[2019-10-05] MEDS: ACETAMINOPHEN 325 MG TABLET 975 MG PO (14:57)
--- NOTE | 2019-10-05 15:25 | PM.PREOP ---
Pre-operative Note Interval Note History & Physical reviewed/Exam performed by Physician: Yes Changes to H&P: No
[2019-10-05] MEDS: GENTAMICIN 160 MG in SODIUM CHLORIDE 0.9% 100 ML 104 ML IV (16:06)
[2019-10-05 16:26] LABS: COVID19 -Nasal RAPID Negative (Negative)
[2019-10-05] MEDS: IOPAMIDOL 15 ML VIAL INJ ×2 (16:57→17:14)
[2019-10-05] MEDS: BELLADONNA/OPIUM SUPPOSITORIES 1 EACH PR (16:58)
--- NOTE | 2019-10-05 17:35 | P.OP_ITS ---
Operative Date/Time/Diagnoses Date of procedure: 10/05/19 Time of procedure: 17:35 Pre-op diagnosis: Obstructing 8 mm right ureteropelvic junction calculus Post-op diagnosis: same Procedure & Clinicians Procedure: 1. Cystoscopy and right retrograde pyelogram. 2. Cystoscopy and right ureteroscopic intrarenal laser lithotripsy. 3. Cystoscopy and placement right ureteral stent (6 [place] by 22-32 cm multi- length). Same procedure as scheduled: Yes Indications: Obstructing 8 mm right ureteropelvic junction calculus Click Yes if Unassisted: Yes Anesthesia Type: General Operative Notes Findings: Urethra normal External sphincter coapted Prostate 3.5-4 cm length with mild lateral lobe hyperplasia. Bladder trace to 1+ trabeculation. Several small bright, carson, multifaceted calculi line dependently in the floor. Normal orifices bilaterally. Closure Type: not applicable Specimen(s): other (Stone fragments that may be contained within the drain fabric.) Applied: other (Six [place] by 22-32 cm multi-length stent.) Estimated Blood Loss (mL): 0 Blood products transfused: none Tourniquet time (min): 0 Procedure in detail: Patient was positioned supine and administered general anesthesia. He was then repositioned semi lithotomy and the lower abdomen genitalia and groin were then prepped and draped in sterile fashion. The 22 [place] panendoscope was then passed lower urinary track with the findings as described above. A 0.35 stiff guidewire was then advanced through the scope and into the right collecting system under direct and fluoroscopic guidance. The panendoscope was then backloaded off this wire. A dual-lumen ureteral access catheter was then advanced over this wire. A 2nd wire, a 0.35 glide wire was then advanced through the accessory channel. A ureteral access sheath was then advanced over the stiff wire would only be brought to approximately the level of the iliac vasculature. However, being satisfied that the ureteropelvic junction was satisfactorily dilated, the ureteral access sheath was backloaded off the wire. Now the flexible ureteral scope was advanced over the stiff wire and then advanced proximally under direct and fluoroscopic guidance into the intrarenal collecting system. A retrograde pyelogram was then performed for stone localization and navigating the individual calices. The stone was then localized within a lower pole major calyx. They 273 micron laser fiber was then selected. The patient and all operating room personnel were fitted with laser safety eyewear. Laser lithotripsy was then commenced with excellent subsequent stone fragmentation. The ureteral scope was then removed. The panendoscope was then front loaded onto the remaining wire. A 6 [place] by 22-32 cm multi-length stent was then selected this was then advanced over the wire under direct and fluoroscopic guidance. A RETRIEVAL LINE WAS LEFT ATTACHED. The bladder was then drained completely and all instrumentation removed a final time. The retrieval line was trimmed approximately 5 cm distal to the urethral meatus for anticipated stent removal in the coming 5-7 days. Patient was then repositioned in supine, was awakened, and was transferred to a gurney in stable condition. Complications: none Post-operative Condition: stable Disposition: PACU Plan for aftercare: Discharge home
[2019-10-05] MEDS: FUROSEMIDE 40 MG/4 ML VIAL 20 MG IV (18:10)
[2019-10-05] MEDS: ONDANSETRON 4 MG/2 ML INJ IV (18:24)
--- NOTE | 2019-10-05 19:14 | SUR.PHASEII ---
Provided detailed instruction to and patient regarding administration of lasix and to merchandise pickup/receiving associate prescriptions from pharmacy. Patient able to void prior to discharge with slightly bloody urine noted. Instructed patient to resume lasix on Saturday. V/U. All belongings returned to patient and family. Home in stable condition with .
== END 2019-10-05 19:00 | disposition home or self-care (01) ==
PROVIDERS: PCP Internal Medicine; Referring Provider Specialist; Visit Provider Specialist
PROC: (CPT 52356; principal; 2019-10-05 15:30)
DX: N20.2 Calculus of kidney with calculus of ureter (principal); E66.9 Obesity, unspecified; Z68.30 Body mass index [BMI] 30.0-30.9, adult; N40.1 Benign prostatic hyperplasia with lower urinary tract symptoms; N13.8 Other obstructive and reflux uropathy; Z11.59 Encounter for screening for other viral diseases
CPT/HCPCS: 52356; 74018; 76000; 87635; J1940; J2250; J2405; J2704; J3010

== ENCOUNTER → 2019-11-10 11:38 | Outpatient (CLI) | payer MEDICARE, OTHER, SELFPAY ==
[2018-07-31 15:48] VITALS: BMI 27.1
[2019-11-10 12:28] LABS: BUN Creatinine Ratio 15.5 (6-22); Blood Urea Nitrogen 20 mg/dL (9-20); Calcium 9.5 mg/dL (8.4-10.2); Carbon Dioxide 26 mmol/L (22-32); Chloride 102 mmol/L (98-107); Estimated Glomerular Filt Rate 53.9 mL/min (>60); Glucose 159 mg/dL (80-110); HEMOLYSIS < 15 (0-50); Hemoglobin A1C% w Est Avg Glu 6.6 % (4.0-6.0); Potassium 4.5 mmol/L (3.4-5.1); Sodium 139 mmol/L (137-145)
== END ==
PROVIDERS: PCP Internal Medicine; Referring Provider Nurse Practitioner; Visit Provider Nurse Practitioner
DX: E11.59 Type 2 diabetes mellitus with other circulatory complications (principal)
CPT/HCPCS: 36415; 80048; 83036

== ENCOUNTER → 2020-01-20 13:33 | Outpatient (CLI) | payer MEDICARE, OTHER, SELFPAY ==
[2018-07-31 15:48] VITALS: BMI 27.1
[2020-01-20 14:33] LABS: Hemoglobin A1C% w Est Avg Glu 6.5 % (4.0-6.0)
[2020-01-20 14:43] LABS: Alanine Aminotransferase 35 IU/L (<50); Albumin 4.4 g/dL (3.5-5.0); Albumin Globulin Ratio 1.3 (1.0-2.8); Alkaline Phosphatase 90 U/L (38-126); Aspartate Aminotransferase 50 IU/L (17-59); BUN Creatinine Ratio 22.4 (6-22); Bilirubin Total 0.8 mg/dL (0.2-1.3); Blood Urea Nitrogen 28 mg/dL (9-20); C-Reactive Protein Quant 1.6 mg/dL (<1.0); Calcium 9.3 mg/dL (8.4-10.2); Carbon Dioxide 24 mmol/L (22-32); Chloride 105 mmol/L (98-107); Creatine Kinase 69 U/L (55-170); Estimated Glomerular Filt Rate 55.9 mL/min (>60); Globulin 3.4 g/dL (1.7-4.1); Glucose 213 mg/dL (80-110); HEMOLYSIS < 15 (0-50); Potassium 3.9 mmol/L (3.4-5.1); Sodium 140 mmol/L (137-145); Total Protein 7.8 g/dL (6.3-8.2)
[2020-01-20 15:18] LABS: Calcium 9.5 mg/dL (8.4-10.2); Uric Acid 8.8 mg/dL (3.5-8.5)
[2020-01-20 15:22] LABS: Erythrocyte Sedimentation Rate 40 MM/HR (0-15)
[2020-01-20 15:50] LABS: TSH w/ Reflex to FT4 3.81 uIU/mL (0.47-4.68)
[2020-01-20 15:51] LABS: Prostate Specific Antigen 0.776 ng/mL (0.10-4.00)
[2020-01-21 08:13] LABS: Parathyroid Hormone Int 43 pg/mL (15-65)
== END ==
PROVIDERS: Specialist; PCP Internal Medicine; Referring Provider Internal Medicine; Visit Provider Internal Medicine
DX: R97.20 Elevated prostate specific antigen [PSA] (principal); E11.65 Type 2 diabetes mellitus with hyperglycemia; N20.0 Calculus of kidney; M16.0 Bilateral primary osteoarthritis of hip; M35.3 Polymyalgia rheumatica
CPT/HCPCS: 36415; 80053; 82310; 82550; 83036; 83970; 84153; 84443; 84550; 85651; 86140

== ENCOUNTER → 2020-03-15 11:39 | Outpatient (CLI) | payer MEDICARE, OTHER, SELFPAY ==
[2018-07-31 15:48] VITALS: BMI 27.1
[2020-03-15 13:29] LABS: Erythrocyte Sedimentation Rate 14 MM/HR (0-15)
[2020-03-15 13:32] LABS: BUN Creatinine Ratio 20.5 (6-22); Blood Urea Nitrogen 24 mg/dL (9-20); C-Reactive Protein Quant 1.1 mg/dL (<1.0); Calcium 9.4 mg/dL (8.4-10.2); Carbon Dioxide 27 mmol/L (22-32); Chloride 98 mmol/L (98-107); Estimated Glomerular Filt Rate > 60.0 mL/min (>60); Glucose 141 mg/dL (80-110); HEMOLYSIS < 15 (0-50); Potassium 3.6 mmol/L (3.4-5.1); Sodium 135 mmol/L (137-145)
== END ==
PROVIDERS: PCP Internal Medicine; Referring Provider Internal Medicine; Visit Provider Internal Medicine
DX: M35.3 Polymyalgia rheumatica (principal)
CPT/HCPCS: 36415; 80048; 85651; 86140

== ENCOUNTER 2020-06-02 10:30 | Outpatient (RCR) | payer MEDICARE, OTHER, SELFPAY ==
[2018-07-31 15:48] VITALS: BMI 27.1
--- NOTE | 2020-04-19 11:19 | PT.OPPOC ---
Physical, Occupational & Speech Therapy At [facility] Current Diagnoses Unilateral post-traumatic osteoarthritis, right hip (04/19/20) Spondylolisthesis, lumbar region (04/19/20) Trochanteric bursitis, right hip (04/19/20) Visit Care Team Role Provider Type Matt Medina MD Primary Care Provider Physician Specialty: Internal Medicine Address: [address] [place] [address], [address], [place], [address] Email: [email or web address] Sarah Osei MD Attending Provider Physician Referring Provider Specialty: Orthopedic Surgery Address: [address] [place] [address], [id number] Email: @Studio Plan Of Care PT-OP-T Assessment and Plan Start: 04/18/20 13:34 Freq: Status: Active Protocol: Document 04/19/20 09:48 MB (Rec: 04/19/20 11:19 MB [id number]) Physical Therapy Assessment Rehab Potential Rehabilitation Potential Fair Evaluation Complexity Number of Personal Factors/Comorbidities 1-2 Number of Body Systems Impaired 3 Clinical Presentation at Evaluation Evolving Impairments Impairments Activity Tolerance,Balance, Functional Activities, Functional Mobility,Gait, Integument,Pain,Posture,ROM, Soft Tissue Mobility,Strength, Vestibular Other Impairments Personal factors include poor hydration habits (decreased non-caffeinated fluid intake with daily coffee, Coke Zero and alcohol consumption), poor memory and history of falls. Body systems affected include metabolic (DM), cardiopulmonary and musculoskeletal. His clinical presentation is evolving. Other Concerns Fall Risk Yes Goals 5 Group Home Goal (LTG) Pt will present with improved left hip flexion strength to at least 4/5 to improve sit to stands by 06/17/20. LTG Duration 8 weeks Four Group Home Goal (LTG) Pt marivel present WNLs on a standardized balance test to decrease fall risk by 06/17/20. LTG Duration 8 weeks Three Impairment LE score 34/80 Group Home Goal (LTG) Pt will present with an improved LEF score to reflect no more than 30% impairment to improve mobility and gait by 06/17/20. LTG Duration 8 weeks Two Addiction Medicine Physician Goal (LTG) Pt will perform progressive HEP with I including pelvic realignment, flexibility, balance, gait and strengthening exercises to improve overall functional strength by 06/17/20. LTG Duration 8 weeks One Group Home Goal (LTG) Pt will perform at least 10 reps sit to stand without UE support in 30 sec to improve functional strength and decrease fall risk with transfers by 06/17/20. LTG Duration 8 weeks Assessment Summary Assessment Pt is a 79 y/o male presenting with back and leg pain, imbalance and falls. PMH includes spinal stenosis and spondylolisthesis, increased body mass, DM, cardiac history including CAD and stenting, and reports of hissing in his ears, dizziness and falls. This date, he presents with positive orthostatic hypotension with BP and HR in LUE: supine 155/91, 77; standing 127/78, 91; standing 1' 135/84, 89 and he is symptomatic with transfer from supine to standing. PT educates pt about orthostasis and recommend follow-up with PCP and/or custom shoemaker about this issue and PT will send this initial evaluation to his in-house PCP, Dr. Medina, and the POC to Dr. Osei. Pt to have an ENT appointment to follow-up about B ear hissing and this and orthostasis do increase pt's fall risk and so will monitor any vestibular, balance and orthostatic issues during PT course. These and known spinal changes, increased body mass and sedentary lifestyle are barriers to PT. he will benefit from PT for pelvic realignment, flexiblity, strengthening and balance exercises. He will benefit from manual intervention as well to address fascial changes. His clinical presentation is guarded. Physical Therapy Plan Frequency and Duration Frequency of Treatment 2x/Week Duration of Treatment 8 weeks Plan of Care Start Date 04/19/20 Plan of Care End Date 06/17/20 Therapeutic Interventions Therapeutic Interventions Balance Training,Canalithic Repositioning,Gait Training, Home Exercise Program,Joint Mobilizations,Manual Therapy, Neuromuscular Re-education, Patient/Caregiver Education, Self-Care/Home Management, Sensory Integration,Soft Tissue Mobilization,Taping, Therapeutic Activities, Therapeutic Exercises, Vestibular Rehabilitation Modalities Cold Pack/Ice Massage,Electric Stimulation,Hot Packs, Ultrasound Next Visit Focus/Plan Next Note Type Treatment Note Next Visit Plan Initiate recumbent stepper, pelvic realignment, self- massage with racquet ball and thoracic rotation in sitting exercises Plan of Care Dates Plan of Care Start Date 04/19/20 Plan of Care End Date 06/17/20 Electronically Signed by: Macy Simpson, PT 04/19/20 [id number] Please Sign and Return: I have reviewed this Plan of Care and certify that the skilled therapy services above are required to meet the patient?s needs. Physician Signature Date Printed Name and Credentials Clinical Instructor Signature Printed Name and Credentials
--- NOTE | 2020-04-19 11:20 | PT.OIE ---
Current Diagnoses Unilateral post-traumatic osteoarthritis, right hip (04/19/20) Spondylolisthesis, lumbar region (04/19/20) Trochanteric bursitis, right hip (04/19/20) Past Medical History (Last Updated 04/12/20 @ 11:16 by Matt Medina MD) Benign prostatic hyperplasia with urinary obstruction (03/25/15) BPH w urinary obs/LUTS Chicken pox Chronic back pain (1989) Coronary artery disease involving [place] coronary artery of [place] heart without angina pectoris (1995) Depression Diabetes Essential hypertension Family history of prostate cancer Femur fracture (1965) Fracture (1951) Gilbert's syndrome Hayfever (1999) Hepatitis A (1963) History of nephrolithiasis HLD (hyperlipidemia) Incomplete bladder emptying Kidney stones Measles Melanoma (1987) Mixed hyperlipidemia Mumps Peripheral vascular disease (2009) Polymyalgia rheumatica (08/30/15) Primary osteoarthritis of both hips (08/30/15) Shoulder pain (2011) Spinal stenosis Tinnitus Type 2 diabetes mellitus without complication (06/20/15) Urge urinary incontinence Past Surgical History (Last Reviewed 02/04/20 @ 11:11 by Pam Crews MD) History of appendectomy History of coronary artery stent placement History of orthopedic surgery (1965) Status post appendectomy (1956) Status post coronary artery bypass graft (1995) Visit Care Team Role Provider Type Matt Medina MD Primary Care Provider Physician Specialty: Internal Medicine Address: [address] [place] [address], [address], [address] Email: [email or web address] Sarah Osei MD Attending Provider Physician Referring Provider Specialty: Orthopedic Surgery Address: [address] [place] [address], [address] Email: [email or web address] Physical Therapy Initial Evaluation PT-OP-A Visit Information Start: 04/18/20 13:34 Freq: Status: Active Protocol: Document 04/19/20 09:48 MB (Rec: 04/19/20 10:06 MB [id number]) Out-Patient Physical Therapy Visit Information Visit Information Visit Type Initial Evaluation Visit Note Medicare Claus, ZEUS after 19 visits Visit Start Time 09:48 Visit Stop Time 10:33 Total Visit Minutes 45 Visit Number 1 Evaluation Information Evaluation Date 04/19/20 PT-OP-B Current Condition Start: 04/18/20 13:34 Freq: Status: Active Protocol: Document 04/19/20 09:48 MB (Rec: 04/19/20 10:06 MB [id number]) Current Condition History of Current Condition Onset Date 6-9 months Current Complaints Imbalance and pain in the back of his legs that limits his mobility History of Current Condition Pt reports that he had a lumbar injection 6 months ago and then he had a pain in the back of his buttocks and legs. Pt saw Dr. Osei and she reported that pt needs exercises. He has a history of injections in the right hip 2 years ago. He was told he did not yet need a hip replacement. He rates pain as 5/10 in the back of both legs. PMH includes spinal stenosis, lumbar spondylolisthesis, right trochanteric bursitis, essential hypertension, polymyalgia rheumatica, PT in the past and pt cannot remember what for and what helped, BPH with urinary obstruction and surgery, CAD, DM, PVD Pt reports imbalance and constant hissing in his ears. He is waiting for an appointment. He reports dizziness that is random. Looking up at the ceiling is problematic. Pt reports falls with last fall last year. This occurred when getting OOB and the EMT had to get him up and brought him to the ED. He had another previous fall in a parking lot when he was changing his shoes. He fell to the side and hit his head. He did not go to the hospital. He has a straight cane that he occ uses. Pt lives at home with his . There are a couple of steps getting into the house and he has a hand rail. He drives himself. Pt reports that the pain in the back of his legs limits him walking more than a block. He has been sitting around the house eating and has been putting on weight. Pt denies sensory changes in his legs. He states that his feet are not in the best shape. He had to get velcro for his shoes because he could not reach sufficiently and had trouble bending over for a while d/t dizziness. Prior Treatments and Tests PT, spinal and right hip injections Treatment Goals Patient/Caregiver Goals To decrease the pain and increase mobility PT-OP-C Subjective Start: 04/18/20 13:34 Freq: Status: Active Protocol: Document 04/19/20 09:48 MB (Rec: 04/19/20 10:06 MB [id number]) OP-PT Subjective Patient Comments Patient Comments See history of current condition Patient Questionnaires Lower Extremity Functional Scale LEFS Score 34 PT-OP-D Balance Start: 04/18/20 13:34 Freq: Status: Active Protocol: Document 04/19/20 09:48 MB (Rec: 04/19/20 11:19 MB [id number]) OP-PT Balance Assessment Sitting Balance Static Sitting Balance Ability Fair Dynamic Sitting Balance Ability Fair Sitting Balance Comments UE support static sitting Standing Balance Static Standing Balance Ability Fair Dynamic Standing Balance Ability Poor Standing Balance Comments CGA static standing after getting up from hook lying, positive orthostatics Mendez Fall Scale Copyright Permission PT-OP-G Mobility & Gait Start: 04/18/20 13:34 Freq: Status: Active Protocol: Document 04/19/20 09:48 MB (Rec: 04/19/20 11:19 MB [id number]) OP Mobility Evaluation Bed Mobility Rolling Min A to assist with right UE to move left side lying to sitting OP Gait Assessment Gait Gait Assistance Required: Independent Distance (Feet) 75 Able to Maintain Weight Bearing Status Yes During Gait Assistive Devices Assistive Device None Orthotic/Prosthetic Devices or Brace: No Gait Deviations General Gait Pattern Antalgic,Decreased Stride Length,Flexed Trunk,Wide Based Gait Factors Limiting Gait Function Factors Limiting Gait Function Limited Range of Motion,Pain, Poor Balance Comments Gait Comments Forward, flexed posture, decreased step-length and foot clearance, slow nirmal PT-OP-J Posture/Palpation/Skin Start: 04/18/20 13:34 Freq: Status: Active Protocol: Document 04/19/20 09:48 MB (Rec: 04/19/20 11:19 MB [id number]) Posture Evaluation Comments Posture Comments Pt standing, socks and no shoes: forward head and rounded shoulders, left tragus 3 in front of left AC joint, Dowager's hump, increased anterior tilt pelvis, flexed posture at hips, right shoulder higher than the left, left thoracic convexity, right iliac crest higher than the left. Pt reports increased B buttock and back across low back with upright posture, he prefers flexion pattern ( sitting) in setting of known stenosis and spondylolisthesis Skin Assessment Other Assessments Skin Assessment Comments Redness forehead. Pt reports skin reaction to antibiotics about a year ago and all his skin peeled and he was adm to hospital and was in the ICU PT-OP-K Range of Motion Start: 04/18/20 13:34 Freq: Status: Active Protocol: Document 04/19/20 09:48 MB (Rec: 04/19/20 11:19 MB [id number]) Cervical Spine Range of Motion Cervical Spine Active Comments Limited active cervical ROM all directions d/t postural and spinal changes Hip Goniometric Range of Motion Hip ROM Limitations Comments Passive SLR very limited, more on the left than the right: 40 deg and 50 deg and PT does not push to the point of back pain, only felt tension limitation and pt reports stretching sensation PT-OP-M Strength Start: 04/18/20 13:34 Freq: Status: Active Protocol: Document 04/19/20 09:48 MB (Rec: 04/19/20 11:19 MB [id number]) Hip Strength Hip Manual Muscle Testing Left Flexion (L2) 3+ Fair+ Abduction 4 Good Adduction 4 Good Comments Pt supine Right Flexion (L2) 5 Normal Abduction 4 Good Adduction 5 Normal Comments Pt supine Knee Strength Knee Manual Muscle Testing Left Flexion (S2) 4 Good Extension (L3) 5 Normal Comments Pt supine Right Flexion (S2) 4 Good Extension (L3) 5 Normal Comments Pt supine Ankle/Foot Strength Ankle and Foot Manual Muscle Testing Left Dorsiflexion (L4) 5 Normal Inversion 5 Normal Eversion (S1) 5 Normal Right Dorsiflexion (L4) 5 Normal Inversion 5 Normal Eversion (S1) 5 Normal Toe Strength Toe Manual Muscle Testing Left Great Toe Extension 4 Good Right Great Toe Extension 5 Normal PT-OP-Q Treatments Start: 04/18/20 13:34 Freq: Status: Active Protocol: Document 04/19/20 09:48 MB (Rec: 04/19/20 10:56 MB [id number]) Self-Care/Home Management Treatment Education Patient Education Safety Caregiver Education Pt reports that he drinks 2-3 glasses of water a day, one cup of coffee, 1 Coke Zero, a glass of wine and 4 oz vodka. Given positive orthostatic findings today and history of dizziness and falls, ed pt in orthostatic hypotension and lifestyle changes he can make and provided two handouts. Will communicate these findings on assessment today and send a copy to his PCP, Dr Jonatan Medina, as well PT-OP-T Assessment and Plan Start: 04/18/20 13:34 Freq: Status: Active Protocol: Document 04/19/20 09:48 MB (Rec: 04/19/20 11:19 MB [id number]) Physical Therapy Assessment Rehab Potential Rehabilitation Potential Fair Evaluation Complexity Number of Personal Factors/Comorbidities 1-2 Number of Body Systems Impaired 3 Clinical Presentation at Evaluation Evolving Impairments Impairments Activity Tolerance,Balance, Functional Activities, Functional Mobility,Gait, Integument,Pain,Posture,ROM, Soft Tissue Mobility,Strength, Vestibular Other Impairments Personal factors include poor hydration habits (decreased non-caffeinated fluid intake with daily coffee, Coke Zero and alcohol consumption), poor memory and history of falls. Body systems affected include metabolic (DM), cardiopulmonary and musculoskeletal. His clinical presentation is evolving. Other Concerns Fall Risk Yes Goals 5 Belt Operator Goal (LTG) Pt will present with improved left hip flexion strength to at least 4/5 to improve sit to stands by 06/17/20. LTG Duration 8 weeks Four Belt Operator Goal (LTG) Pt marivel present WNLs on a standardized balance test to decrease fall risk by 06/17/20. LTG Duration 8 weeks Three Impairment LE score 34/80 Retirement Goal (LTG) Pt will present with an improved LEF score to reflect no more than 30% impairment to improve mobility and gait by 06/17/20. LTG Duration 8 weeks Two Retirement Goal (LTG) Pt will perform progressive HEP with I including pelvic realignment, flexibility, balance, gait and strengthening exercises to improve overall functional strength by 06/17/20. LTG Duration 8 weeks One Retirement Goal (LTG) Pt will perform at least 10 reps sit to stand without UE support in 30 sec to improve functional strength and decrease fall risk with transfers by 06/17/20. LTG Duration 8 weeks Assessment Summary Assessment Pt is a 79 y/o male presenting with back and leg pain, imbalance and falls. PMH includes spinal stenosis and spondylolisthesis, increased body mass, DM, cardiac history including CAD and stenting, and reports of hissing in his ears, dizziness and falls. This date, he presents with positive orthostatic hypotension with BP and HR in LUE: supine 155/91, 77; standing 127/78, 91; standing 1' 135/84, 89 and he is symptomatic with transfer from supine to standing. PT educates pt about orthostasis and recommend follow-up with PCP and/or terrazzo mechanic helper about this issue and PT will send this initial evaluation to his in-house PCP, Dr. Medina, and the POC to Dr. Osei. Pt to have an ENT appointment to follow-up about B ear hissing and this and orthostasis do increase pt's fall risk and so will monitor any vestibular, balance and orthostatic issues during PT course. These and known spinal changes, increased body mass and sedentary lifestyle are barriers to PT. he will benefit from PT for pelvic realignment, flexiblity, strengthening and balance exercises. He will benefit from manual intervention as well to address fascial changes. His clinical presentation is guarded. Physical Therapy Plan Frequency and Duration Frequency of Treatment 2x/Week Duration of Treatment 8 weeks Plan of Care Start Date 04/19/20 Plan of Care End Date 06/17/20 Therapeutic Interventions Therapeutic Interventions Balance Training,Canalithic Repositioning,Gait Training, Home Exercise Program,Joint Mobilizations,Manual Therapy, Neuromuscular Re-education, Patient/Caregiver Education, Self-Care/Home Management, Sensory Integration,Soft Tissue Mobilization,Taping, Therapeutic Activities, Therapeutic Exercises, Vestibular Rehabilitation Modalities Cold Pack/Ice Massage,Electric Stimulation,Hot Packs, Ultrasound Next Visit Focus/Plan Next Note Type Treatment Note Next Visit Plan Initiate recumbent stepper, pelvic realignment, self- massage with racquet ball and thoracic rotation in sitting exercises
--- NOTE | 2020-04-21 11:19 | PT.OTN ---
Current Diagnoses Unilateral post-traumatic osteoarthritis, right hip (04/21/20) Spondylolisthesis, lumbar region (04/21/20) Trochanteric bursitis, right hip (04/21/20) Physical Therapy Treatment Note PT-OP-A Visit Information Start: 04/18/20 13:34 Freq: Status: Active Protocol: Document 04/21/20 10:34 MB (Rec: 04/21/20 11:18 MB [id number]) Out-Patient Physical Therapy Visit Information Visit Information Visit Type Treatment Note Visit Note Medicare Regence Visit Start Time 10:34 Visit Stop Time 11:15 Total Visit Minutes 41 Visit Number 2 PT-OP-B Current Condition Start: 04/18/20 13:34 Freq: Status: Active Protocol: Document 04/19/20 09:48 MB (Rec: 04/19/20 10:06 MB [id number]) Current Condition History of Current Condition Onset Date 6-9 months Current Complaints Imbalance and pain in the back of his legs that limits his mobility History of Current Condition Pt reports that he had a lumbar injection 6 months ago and then he had a pain in the back of his buttocks and legs. Pt saw Dr. Osei and she reported that pt needs exercises. He has a history of injections in the right hip 2 years ago. He was told he did not yet need a hip replacement. He rates pain as 5/10 in the back of both legs. PMH includes spinal stenosis, lumbar spondylolisthesis, right trochanteric bursitis, essential hypertension, polymyalgia rheumatica, PT in the past and pt cannot remember what for and what helped, BPH with urinary obstruction and surgery, CAD, DM, PVD Pt reports imbalance and constant hissing in his ears. He is waiting for an appointment. He reports dizziness that is random. Looking up at the ceiling is problematic. Pt reports falls with last fall last year. This occurred when getting OOB and the EMT had to get him up and brought him to the ED. He had another previous fall in a parking lot when he was changing his shoes. He fell to the side and hit his head. He did not go to the hospital. He has a straight cane that he occ uses. Pt lives at home with his . There are a couple of steps getting into the house and he has a hand rail. He drives himself. Pt reports that the pain in the back of his legs limits him walking more than a block. He has been sitting around the house eating and has been putting on weight. Pt denies sensory changes in his legs. He states that his feet are not in the best shape. He had to get velcro for his shoes because he could not reach sufficiently and had trouble bending over for a while d/t dizziness. Prior Treatments and Tests PT, spinal and right hip injections Treatment Goals Patient/Caregiver Goals To decrease the pain and increase mobility PT-OP-C Subjective Start: 04/18/20 13:34 Freq: Status: Active Protocol: Document 04/21/20 10:34 MB (Rec: 04/21/20 11:18 MB [id number]) OP-PT Subjective Patient Comments Patient Comments I was thinking about what you said about blood pressure. He drank more water after PT and felt a resurgence of energy. Pt brings in medication list. He describes his dizziness as going in and out. PT-OP-D Balance Start: 04/18/20 13:34 Freq: Status: Active Protocol: Document 04/19/20 09:48 MB (Rec: 04/19/20 11:19 MB [id number]) OP-PT Balance Assessment Sitting Balance Static Sitting Balance Ability Fair Dynamic Sitting Balance Ability Fair Sitting Balance Comments UE support static sitting Standing Balance Static Standing Balance Ability Fair Dynamic Standing Balance Ability Poor Standing Balance Comments CGA static standing after getting up from hook lying, positive orthostatics Mendez Fall Scale Copyright Permission PT-OP-G Mobility & Gait Start: 04/18/20 13:34 Freq: Status: Active Protocol: Document 04/19/20 09:48 MB (Rec: 04/19/20 11:19 MB [id number]) OP Mobility Evaluation Bed Mobility Rolling Min A to assist with right UE to move left side lying to sitting OP Gait Assessment Gait Gait Assistance Required: Independent Distance (Feet) 75 Able to Maintain Weight Bearing Status Yes During Gait Assistive Devices Assistive Device None Orthotic/Prosthetic Devices or Brace: No Gait Deviations General Gait Pattern Antalgic,Decreased Stride Length,Flexed Trunk,Wide Based Gait Factors Limiting Gait Function Factors Limiting Gait Function Limited Range of Motion,Pain, Poor Balance Comments Gait Comments Forward, flexed posture, decreased step-length and foot clearance, slow nirmal PT-OP-J Posture/Palpation/Skin Start: 04/18/20 13:34 Freq: Status: Active Protocol: Document 04/19/20 09:48 MB (Rec: 04/19/20 11:19 MB [id number]) Posture Evaluation Comments Posture Comments Pt standing, socks and no shoes: forward head and rounded shoulders, left tragus 3 in front of left AC joint, Dowager's hump, increased anterior tilt pelvis, flexed posture at hips, right shoulder higher than the left, left thoracic convexity, right iliac crest higher than the left. Pt reports increased B buttock and back across low back with upright posture, he prefers flexion pattern ( sitting) in setting of known stenosis and spondylolisthesis Skin Assessment Other Assessments Skin Assessment Comments Redness forehead. Pt reports skin reaction to antibiotics about a year ago and all his skin peeled and he was adm to hospital and was in the ICU PT-OP-K Range of Motion Start: 04/18/20 13:34 Freq: Status: Active Protocol: Document 04/19/20 09:48 MB (Rec: 04/19/20 11:19 MB [id number]) Cervical Spine Range of Motion Cervical Spine Active Comments Limited active cervical ROM all directions d/t postural and spinal changes Hip Goniometric Range of Motion Hip ROM Limitations Comments Passive SLR very limited, more on the left than the right: 40 deg and 50 deg and PT does not push to the point of back pain, only felt tension limitation and pt reports stretching sensation PT-OP-M Strength Start: 04/18/20 13:34 Freq: Status: Active Protocol: Document 04/19/20 09:48 MB (Rec: 04/19/20 11:19 MB [id number]) Hip Strength Hip Manual Muscle Testing Left Flexion (L2) 3+ Fair+ Abduction 4 Good Adduction 4 Good Comments Pt supine Right Flexion (L2) 5 Normal Abduction 4 Good Adduction 5 Normal Comments Pt supine Knee Strength Knee Manual Muscle Testing Left Flexion (S2) 4 Good Extension (L3) 5 Normal Comments Pt supine Right Flexion (S2) 4 Good Extension (L3) 5 Normal Comments Pt supine Ankle/Foot Strength Ankle and Foot Manual Muscle Testing Left Dorsiflexion (L4) 5 Normal Inversion 5 Normal Eversion (S1) 5 Normal Right Dorsiflexion (L4) 5 Normal Inversion 5 Normal Eversion (S1) 5 Normal Toe Strength Toe Manual Muscle Testing Left Great Toe Extension 4 Good Right Great Toe Extension 5 Normal PT-OP-Q Treatments Start: 04/18/20 13:34 Freq: Status: Active Protocol: Document 04/21/20 10:34 MB (Rec: 04/21/20 11:18 MB [id number]) Cardio Equipment Recumbent Elliptical (Biodex) Duration (Minutes) 10 Resistance 2 Seat Position 12 Therapeutic Exercises Sitting Exercises Sit to stands Comments 30 sec: 5 reps without UE support Gait Training Gait Activity 6MWT Comments Pt gait trains 768 feet in 6 minutes and reports up to 5/10 pain in B buttocks and lateral hips and requires 1 sitting rest break. He lists right and left and has wide BRADLEY, slow nirmal and increased Yaya angle B with gait BP and HR in right UE sitting after gait: 173/96, 73 BPM after gait Superv with gait during 6MWT and in gym and out to car, antalgic pattern Self-Care/Home Management Treatment Education Other Education Ed pt in benefits of progressing sitting exercises- -cardiac, flexibility and strengthening in setting of stenosis and worse pain with walking today, ed pt to follow -up with pharmacist about medications in setting of dizziness, falls and orthostasis, ed in follow-up with Dr. Medina for the same reason, ed in benefits of restoration ecologist to assess DM and symptoms, pt states that he cannot get back into cardiac rehab d/t COVID restrictions and so will con't to monitor response to exercises here PT-OP-T Assessment and Plan Start: 04/18/20 13:34 Freq: Status: Active Protocol: Document 04/21/20 10:34 MB (Rec: 04/21/20 11:18 MB [id number]) Physical Therapy Assessment Rehab Potential Rehabilitation Potential Fair Evaluation Complexity Number of Personal Factors/Comorbidities 1-2 Number of Body Systems Impaired 3 Clinical Presentation at Evaluation Evolving Impairments Impairments Activity Tolerance,Balance, Functional Activities, Functional Mobility,Gait, Integument,Pain,Posture,ROM, Soft Tissue Mobility,Strength, Vestibular Other Impairments Personal factors include poor hydration habits (decreased non-caffeinated fluid intake with daily coffee, Coke Zero and alcohol consumption), poor memory and history of falls. Body systems affected include metabolic (DM), cardiopulmonary and musculoskeletal. His clinical presentation is evolving. Other Concerns Fall Risk Yes Goals 5 Strategic Sourcing Consultant Goal (LTG) Pt will present with improved left hip flexion strength to at least 4/5 to improve sit to stands by 06/17/20. LTG Duration 8 weeks Four Strategic Sourcing Consultant Goal (LTG) Pt marivel present WNLs on a standardized balance test to decrease fall risk by 06/17/20. LTG Duration 8 weeks Three Impairment LE score 34/80 Care Home Goal (LTG) Pt will present with an improved LEF score to reflect no more than 30% impairment to improve mobility and gait by 06/17/20. LTG Duration 8 weeks Two Care Home Goal (LTG) Pt will perform progressive HEP with I including pelvic realignment, flexibility, balance, gait and strengthening exercises to improve overall functional strength by 06/17/20. LTG Duration 8 weeks One Strategic Sourcing Consultant Goal (LTG) Pt will perform at least 10 reps sit to stand without UE support in 30 sec to improve functional strength and decrease fall risk with transfers by 06/17/20. LTG Duration 8 weeks Assessment Summary Assessment Pt took education about orthostasis seriously and is trying to make changes in hydration. He is working on his eating habits as well. He will follow-up with provider at [facility] about blood sugar with regard to eating. He is not currently checking his blood sugar. He wonders if hypoglycemia is affecting fatigue. PT does encourage him to follow-up with provider about this. PT does note that pt is on Flomax and he states that he is not on fluid restrictions. Encourage him to follow-up with Dr. Medina about his medications and symptoms--blood sugar and blood pressure issues, fatigue and dizziness. BP and HR in right UE after stepper: 153/79 , 77. BP is higher after gait and he has more back pain after gait. Will con't to reassess pain, BP and gait distance in future treatments and con't initiating sitting exercises to help flexibility and strengthening. Ed pt to follow-up with Dr. Medina and pharmacist in setting of symptoms, BP, medications. Physical Therapy Plan Frequency and Duration Frequency of Treatment 2x/Week Duration of Treatment 8 weeks Plan of Care Start Date 04/19/20 Plan of Care End Date 06/17/20 Therapeutic Interventions Therapeutic Interventions Balance Training,Canalithic Repositioning,Gait Training, Home Exercise Program,Joint Mobilizations,Manual Therapy, Neuromuscular Re-education, Patient/Caregiver Education, Self-Care/Home Management, Sensory Integration,Soft Tissue Mobilization,Taping, Therapeutic Activities, Therapeutic Exercises, Vestibular Rehabilitation Modalities Cold Pack/Ice Massage,Electric Stimulation,Hot Packs, Ultrasound Other Referrals/Consults Referrals/Consults Recommended Follow-up with dietition/ restoration ecologist re: DM, diet, cognitive screen given medical issues and memory trouble Next Visit Focus/Plan Next Note Type Treatment Note Next Visit Plan Continue recumbent stepper and increase resistance and time, pelvic realignment, self- massage with racquet ball and thoracic rotation in sitting exercises, sitting LE flexibility and strengthening exercises.
--- NOTE | 2020-04-26 10:28 | PT.OTN ---
Current Diagnoses Unilateral post-traumatic osteoarthritis, right hip (04/26/20) Spondylolisthesis, lumbar region (04/26/20) Trochanteric bursitis, right hip (04/26/20) Physical Therapy Treatment Note PT-OP-A Visit Information Start: 04/18/20 13:34 Freq: Status: Active Protocol: Document 04/26/20 09:47 MB (Rec: 04/26/20 10:27 MB [id number]) Out-Patient Physical Therapy Visit Information Visit Information Visit Type Treatment Note Visit Note Medicare Regence Visit Start Time 09:47 Visit Stop Time 10:27 Total Visit Minutes 40 Visit Number 3 PT-OP-B Current Condition Start: 04/18/20 13:34 Freq: Status: Active Protocol: Document 04/19/20 09:48 MB (Rec: 04/19/20 10:06 MB [id number]) Current Condition History of Current Condition Onset Date 6-9 months Current Complaints Imbalance and pain in the back of his legs that limits his mobility History of Current Condition Pt reports that he had a lumbar injection 6 months ago and then he had a pain in the back of his buttocks and legs. Pt saw Dr. Osei and she reported that pt needs exercises. He has a history of injections in the right hip 2 years ago. He was told he did not yet need a hip replacement. He rates pain as 5/10 in the back of both legs. PMH includes spinal stenosis, lumbar spondylolisthesis, right trochanteric bursitis, essential hypertension, polymyalgia rheumatica, PT in the past and pt cannot remember what for and what helped, BPH with urinary obstruction and surgery, CAD, DM, PVD Pt reports imbalance and constant hissing in his ears. He is waiting for an appointment. He reports dizziness that is random. Looking up at the ceiling is problematic. Pt reports falls with last fall last year. This occurred when getting OOB and the EMT had to get him up and brought him to the ED. He had another previous fall in a parking lot when he was changing his shoes. He fell to the side and hit his head. He did not go to the hospital. He has a straight cane that he occ uses. Pt lives at home with his . There are a couple of steps getting into the house and he has a hand rail. He drives himself. Pt reports that the pain in the back of his legs limits him walking more than a block. He has been sitting around the house eating and has been putting on weight. Pt denies sensory changes in his legs. He states that his feet are not in the best shape. He had to get velcro for his shoes because he could not reach sufficiently and had trouble bending over for a while d/t dizziness. Prior Treatments and Tests PT, spinal and right hip injections Treatment Goals Patient/Caregiver Goals To decrease the pain and increase mobility PT-OP-C Subjective Start: 04/18/20 13:34 Freq: Status: Active Protocol: Document 04/26/20 09:47 MB (Rec: 04/26/20 10:27 MB [id number]) OP-PT Subjective Patient Comments Patient Comments I saw my track greaser yesterday. Pt states that he saw Dr. Freitas and he was told that he had spinal stenosis. He is thinking about surgery. PT-OP-D Balance Start: 04/18/20 13:34 Freq: Status: Active Protocol: Document 04/19/20 09:48 MB (Rec: 04/19/20 11:19 MB [id number]) OP-PT Balance Assessment Sitting Balance Static Sitting Balance Ability Fair Dynamic Sitting Balance Ability Fair Sitting Balance Comments UE support static sitting Standing Balance Static Standing Balance Ability Fair Dynamic Standing Balance Ability Poor Standing Balance Comments CGA static standing after getting up from hook lying, positive orthostatics Mendez Fall Scale Copyright Permission PT-OP-G Mobility & Gait Start: 04/18/20 13:34 Freq: Status: Active Protocol: Document 04/19/20 09:48 MB (Rec: 04/19/20 11:19 MB [id number]) OP Mobility Evaluation Bed Mobility Rolling Min A to assist with right UE to move left side lying to sitting OP Gait Assessment Gait Gait Assistance Required: Independent Distance (Feet) 75 Able to Maintain Weight Bearing Status Yes During Gait Assistive Devices Assistive Device None Orthotic/Prosthetic Devices or Brace: No Gait Deviations General Gait Pattern Antalgic,Decreased Stride Length,Flexed Trunk,Wide Based Gait Factors Limiting Gait Function Factors Limiting Gait Function Limited Range of Motion,Pain, Poor Balance Comments Gait Comments Forward, flexed posture, decreased step-length and foot clearance, slow nirmal PT-OP-J Posture/Palpation/Skin Start: 04/18/20 13:34 Freq: Status: Active Protocol: Document 04/19/20 09:48 MB (Rec: 04/19/20 11:19 MB [id number]) Posture Evaluation Comments Posture Comments Pt standing, socks and no shoes: forward head and rounded shoulders, left tragus 3 in front of left AC joint, Dowager's hump, increased anterior tilt pelvis, flexed posture at hips, right shoulder higher than the left, left thoracic convexity, right iliac crest higher than the left. Pt reports increased B buttock and back across low back with upright posture, he prefers flexion pattern ( sitting) in setting of known stenosis and spondylolisthesis Skin Assessment Other Assessments Skin Assessment Comments Redness forehead. Pt reports skin reaction to antibiotics about a year ago and all his skin peeled and he was adm to hospital and was in the ICU PT-OP-K Range of Motion Start: 04/18/20 13:34 Freq: Status: Active Protocol: Document 04/19/20 09:48 MB (Rec: 04/19/20 11:19 MB [id number]) Cervical Spine Range of Motion Cervical Spine Active Comments Limited active cervical ROM all directions d/t postural and spinal changes Hip Goniometric Range of Motion Hip ROM Limitations Comments Passive SLR very limited, more on the left than the right: 40 deg and 50 deg and PT does not push to the point of back pain, only felt tension limitation and pt reports stretching sensation PT-OP-M Strength Start: 04/18/20 13:34 Freq: Status: Active Protocol: Document 04/19/20 09:48 MB (Rec: 04/19/20 11:19 MB [id number]) Hip Strength Hip Manual Muscle Testing Left Flexion (L2) 3+ Fair+ Abduction 4 Good Adduction 4 Good Comments Pt supine Right Flexion (L2) 5 Normal Abduction 4 Good Adduction 5 Normal Comments Pt supine Knee Strength Knee Manual Muscle Testing Left Flexion (S2) 4 Good Extension (L3) 5 Normal Comments Pt supine Right Flexion (S2) 4 Good Extension (L3) 5 Normal Comments Pt supine Ankle/Foot Strength Ankle and Foot Manual Muscle Testing Left Dorsiflexion (L4) 5 Normal Inversion 5 Normal Eversion (S1) 5 Normal Right Dorsiflexion (L4) 5 Normal Inversion 5 Normal Eversion (S1) 5 Normal Toe Strength Toe Manual Muscle Testing Left Great Toe Extension 4 Good Right Great Toe Extension 5 Normal PT-OP-Q Treatments Start: 04/18/20 13:34 Freq: Status: Active Protocol: Document 04/26/20 09:47 MB (Rec: 04/26/20 10:27 MB [id number]) Cardio Equipment Recumbent Elliptical (Biodex) Duration (Minutes) 15 Resistance 2-4 Seat Position 12 Other Legs only; left index finger 96%, 78 BPM Recumbent Bicycle Other Pt's feet fall out of pedals x3 Therapeutic Exercises Sitting Exercises Thoracic rotation Comments [address] and end-range breathing LAQ with AP Comments 5 reps slowly, 5-10 reps AP when leg extended, alternating HS stretch Comments B 30 sec with toes up Self-Care/Home Management Treatment Education Other Education See education under assessment today PT-OP-T Assessment and Plan Start: 04/18/20 13:34 Freq: Status: Active Protocol: Document 04/26/20 09:47 MB (Rec: 04/26/20 10:27 MB [id number]) Physical Therapy Assessment Rehab Potential Rehabilitation Potential Fair Evaluation Complexity Number of Personal Factors/Comorbidities 1-2 Number of Body Systems Impaired 3 Clinical Presentation at Evaluation Evolving Impairments Impairments Activity Tolerance,Balance, Functional Activities, Functional Mobility,Gait, Integument,Pain,Posture,ROM, Soft Tissue Mobility,Strength, Vestibular Other Impairments Personal factors include poor hydration habits (decreased non-caffeinated fluid intake with daily coffee, Coke Zero and alcohol consumption), poor memory and history of falls. Body systems affected include metabolic (DM), cardiopulmonary and musculoskeletal. His clinical presentation is evolving. Other Concerns Fall Risk Yes Goals 5 Longterm Goal (LTG) Pt will present with improved left hip flexion strength to at least 4/5 to improve sit to stands by 06/17/20. LTG Duration 8 weeks Four Longterm Goal (LTG) Pt marivel present WNLs on a standardized balance test to decrease fall risk by 06/17/20. LTG Duration 8 weeks Three Impairment LE score 34/80 Longterm Goal (LTG) Pt will present with an improved LEF score to reflect no more than 30% impairment to improve mobility and gait by 06/17/20. LTG Duration 8 weeks Two Longterm Goal (LTG) Pt will perform progressive HEP with I including pelvic realignment, flexibility, balance, gait and strengthening exercises to improve overall functional strength by 4/16/21. LTG Duration 8 weeks One Credit Risk Specialist Goal (LTG) Pt will perform at least 10 reps sit to stand without UE support in 30 sec to improve functional strength and decrease fall risk with transfers by 06/17/20. LTG Duration 8 weeks Assessment Summary Assessment Pt reports that he is thinking about back surgery. PT ed pt on other issues he might consider addressing with providers: BP, medications, body habitus and diet. Pt's overall multiple medical issues are problematic for his functional presentation. Initiated sitting exercises today and con't to progress. Physical Therapy Plan Frequency and Duration Frequency of Treatment 2x/Week Duration of Treatment 8 weeks Plan of Care Start Date 04/19/20 Plan of Care End Date 06/17/20 Therapeutic Interventions Therapeutic Interventions Balance Training,Canalithic Repositioning,Gait Training, Home Exercise Program,Joint Mobilizations,Manual Therapy, Neuromuscular Re-education, Patient/Caregiver Education, Self-Care/Home Management, Sensory Integration,Soft Tissue Mobilization,Taping, Therapeutic Activities, Therapeutic Exercises, Vestibular Rehabilitation Modalities Cold Pack/Ice Massage,Electric Stimulation,Hot Packs, Ultrasound Other Referrals/Consults Referrals/Consults Recommended Follow-up with dietition/ solid state tester re: DM, diet, cognitive screen given medical issues and memory trouble Next Visit Focus/Plan Next Note Type Treatment Note Next Visit Plan Progress sitting exercises as pt tolerates including recumbent stepper.
--- NOTE | 2020-05-03 11:27 | PT.OTN ---
Addendum entered and electronically signed by Karen Ngo, EDITA 05/03/20 11:45: Noted improved knee extension with upright tall posture when patient was leaving. This demonstrates increased LS and HS flexibility. Original Note: Current Diagnoses Unilateral post-traumatic osteoarthritis, right hip (05/03/20) Spondylolisthesis, lumbar region (05/03/20) Trochanteric bursitis, right hip (05/03/20) Physical Therapy Treatment Note PT-OP-A Visit Information Start: 04/18/20 13:34 Freq: Status: Active Protocol: Document 05/03/20 10:41 SP (Rec: 05/03/20 11:43 SP [id number]) Out-Patient Physical Therapy Visit Information Visit Information Visit Type Treatment Note Visit Note Medicare Claus Mendez attended tx. Visit Start Time 10:41 Visit Stop Time 11:27 Total Visit Minutes 46 Visit Number 4 Number of TRAINING AND DEVELOPMENT PROFESSIONAL Visits 1 PT-OP-B Current Condition Start: 04/18/20 13:34 Freq: Status: Active Protocol: Document 04/19/20 09:48 MB (Rec: 04/19/20 10:06 MB [id number]) Current Condition History of Current Condition Onset Date 6-9 months Current Complaints Imbalance and pain in the back of his legs that limits his mobility History of Current Condition Pt reports that he had a lumbar injection 6 months ago and then he had a pain in the back of his buttocks and legs. Pt saw Dr. Osei and she reported that pt needs exercises. He has a history of injections in the right hip 2 years ago. He was told he did not yet need a hip replacement. He rates pain as 5/10 in the back of both legs. PMH includes spinal stenosis, lumbar spondylolisthesis, right trochanteric bursitis, essential hypertension, polymyalgia rheumatica, PT in the past and pt cannot remember what for and what helped, BPH with urinary obstruction and surgery, CAD, DM, PVD Pt reports imbalance and constant hissing in his ears. He is waiting for an appointment. He reports dizziness that is random. Looking up at the ceiling is problematic. Pt reports falls with last fall last year. This occurred when getting OOB and the EMT had to get him up and brought him to the ED. He had another previous fall in a parking lot when he was changing his shoes. He fell to the side and hit his head. He did not go to the hospital. He has a straight cane that he occ uses. Pt lives at home with his . There are a couple of steps getting into the house and he has a hand rail. He drives himself. Pt reports that the pain in the back of his legs limits him walking more than a block. He has been sitting around the house eating and has been putting on weight. Pt denies sensory changes in his legs. He states that his feet are not in the best shape. He had to get velcro for his shoes because he could not reach sufficiently and had trouble bending over for a while d/t dizziness. Prior Treatments and Tests PT, spinal and right hip injections Treatment Goals Patient/Caregiver Goals To decrease the pain and increase mobility PT-OP-C Subjective Start: 04/18/20 13:34 Freq: Status: Active Protocol: Document 05/03/20 10:41 SP (Rec: 05/03/20 11:43 SP [id number]) OP-PT Subjective Patient Comments Patient Comments Saw his Rhumatologist Dr White, they looked at recent xrays ( 2-3 weeks ago) done over at [facility] ordered by Dr Nolvia Osei, with feedback of spinal stenosis. Pt stated I was in alot of 10/11 LBP that radiates L5 posteriorly to B knees and post upper calf but today is a better day 06/11. Pt stated not feeling significant improvement since started PT. Diffcult to walk more than a block. PT-OP-D Balance Start: 04/18/20 13:34 Freq: Status: Active Protocol: Document 04/19/20 09:48 MB (Rec: 04/19/20 11:19 MB [id number]) OP-PT Balance Assessment Sitting Balance Static Sitting Balance Ability Fair Dynamic Sitting Balance Ability Fair Sitting Balance Comments UE support static sitting Standing Balance Static Standing Balance Ability Fair Dynamic Standing Balance Ability Poor Standing Balance Comments CGA static standing after getting up from hook lying, positive orthostatics Mendez Fall Scale Copyright Permission PT-OP-G Mobility & Gait Start: 04/18/20 13:34 Freq: Status: Active Protocol: Document 04/19/20 09:48 MB (Rec: 04/19/20 11:19 MB [id number]) OP Mobility Evaluation Bed Mobility Rolling Min A to assist with right UE to move left side lying to sitting OP Gait Assessment Gait Gait Assistance Required: Independent Distance (Feet) 75 Able to Maintain Weight Bearing Status Yes During Gait Assistive Devices Assistive Device None Orthotic/Prosthetic Devices or Brace: No Gait Deviations General Gait Pattern Antalgic,Decreased Stride Length,Flexed Trunk,Wide Based Gait Factors Limiting Gait Function Factors Limiting Gait Function Limited Range of Motion,Pain, Poor Balance Comments Gait Comments Forward, flexed posture, decreased step-length and foot clearance, slow nirmal PT-OP-J Posture/Palpation/Skin Start: 04/18/20 13:34 Freq: Status: Active Protocol: Document 04/19/20 09:48 MB (Rec: 04/19/20 11:19 MB [id number]) Posture Evaluation Comments Posture Comments Pt standing, socks and no shoes: forward head and rounded shoulders, left tragus 3 in front of left AC joint, Dowager's hump, increased anterior tilt pelvis, flexed posture at hips, right shoulder higher than the left, left thoracic convexity, right iliac crest higher than the left. Pt reports increased B buttock and back across low back with upright posture, he prefers flexion pattern ( sitting) in setting of known stenosis and spondylolisthesis Skin Assessment Other Assessments Skin Assessment Comments Redness forehead. Pt reports skin reaction to antibiotics about a year ago and all his skin peeled and he was adm to hospital and was in the ICU PT-OP-K Range of Motion Start: 04/18/20 13:34 Freq: Status: Active Protocol: Document 04/19/20 09:48 MB (Rec: 04/19/20 11:19 MB [id number]) Cervical Spine Range of Motion Cervical Spine Active Comments Limited active cervical ROM all directions d/t postural and spinal changes Hip Goniometric Range of Motion Hip ROM Limitations Comments Passive SLR very limited, more on the left than the right: 40 deg and 50 deg and PT does not push to the point of back pain, only felt tension limitation and pt reports stretching sensation PT-OP-M Strength Start: 04/18/20 13:34 Freq: Status: Active Protocol: Document 04/19/20 09:48 MB (Rec: 04/19/20 11:19 MB [id number]) Hip Strength Hip Manual Muscle Testing Left Flexion (L2) 3+ Fair+ Abduction 4 Good Adduction 4 Good Comments Pt supine Right Flexion (L2) 5 Normal Abduction 4 Good Adduction 5 Normal Comments Pt supine Knee Strength Knee Manual Muscle Testing Left Flexion (S2) 4 Good Extension (L3) 5 Normal Comments Pt supine Right Flexion (S2) 4 Good Extension (L3) 5 Normal Comments Pt supine Ankle/Foot Strength Ankle and Foot Manual Muscle Testing Left Dorsiflexion (L4) 5 Normal Inversion 5 Normal Eversion (S1) 5 Normal Right Dorsiflexion (L4) 5 Normal Inversion 5 Normal Eversion (S1) 5 Normal Toe Strength Toe Manual Muscle Testing Left Great Toe Extension 4 Good Right Great Toe Extension 5 Normal PT-OP-Q Treatments Start: 04/18/20 13:34 Freq: Status: Active Protocol: Document 05/03/20 10:41 SP (Rec: 05/03/20 11:43 SP [id number]) Cardio Equipment Recumbent Elliptical ([employer]endor) Duration (Minutes) 6 Resistance 3 Seat Position 11 Other legs only, didn't check SaO2 or HR today. Therapeutic Exercises Sitting Exercises Thoracic rotation Sitting Exercise Name R and L MitoProd ( review HEP) Reps/Minutes 5 reps, 2 slow deep breathes at end feel of comfort Comments cued slow pacing tall posture control and breath end feel range pain free LAQ with AP Sitting Exercise Name reveiw HEP Reps/Minutes 5 reps slowly, 5-10 reps AP when leg extended, alternating Comments cued femur full supported, slow pacing muscular movement Sit to stands Sitting Exercise Name review HEP Comments 30 sec: 5 reps without UE support HS stretch Sitting Exercise Name review HEP Comments B 30 sec with toes up Manual Therapy Treatment Soft Tissue Mobilization STMs Body Location B QL, paraspinals Mobilization Type Cross-Friction,Myofascial Release,Sustained Pressure, Other Intensity/Depth Moderate Body Position Prone Comments also MWM pin and pelvis post/ anterior tilts. Instruction racquetball roll at wall. Manual Traction manual LS traction Details L5- S1 Body Position Prone Reps/Duration 3 min PT-OP-T Assessment and Plan Start: 04/18/20 13:34 Freq: Status: Active Protocol: Document 05/03/20 10:41 SP (Rec: 05/03/20 11:43 SP [id number]) Physical Therapy Assessment Goals 5 Hopper Attendant Goal (LTG) Pt will present with improved left hip flexion strength to at least 4/5 to improve sit to stands by 06/17/20. LTG Duration 8 weeks Four Hopper Attendant Goal (LTG) Pt marivel present WNLs on a standardized balance test to decrease fall risk by 06/17/20. LTG Duration 8 weeks Three Impairment LE score 34/80 Hopper Attendant Goal (LTG) Pt will present with an improved LEF score to reflect no more than 30% impairment to improve mobility and gait by 06/17/20. LTG Duration 8 weeks Two Fpc Goal (LTG) Pt will perform progressive HEP with I including pelvic realignment, flexibility, balance, gait and strengthening exercises to improve overall functional strength by 06/17/20. 05/03/20: HEP: seated LAQ ankle pump, HS stretch, sit to stands, TS rotation (held [employer]), ball roll LS at wall. No increase in nerve pain down legs. LTG Duration 8 weeks One Hopper Attendant Goal (LTG) Pt will perform at least 10 reps sit to stand without UE support in 30 sec to improve functional strength and decrease fall risk with transfers by 06/17/20. LTG Duration 8 weeks Assessment Summary Assessment Tx focused on TS, LS mobility and decreased tightness and reduction in LS pain that radiates down legs with reports of feeling looser in low back post manual and HEP review but stated nerve pain same 06/11 nerve pain posterior thighs. Cued elevated posture during ther ex HEP review. Initiated self massage to LS usign ball on wall with reports of does help to loosen up muscles but also a quad work out. Physical Therapy Plan Frequency and Duration Frequency of Treatment 2x/Week Duration of Treatment 8 weeks Plan of Care Start Date 04/19/20 Plan of Care End Date 06/17/20 Therapeutic Interventions Therapeutic Interventions Balance Training,Canalithic Repositioning,Gait Training, Home Exercise Program,Joint Mobilizations,Manual Therapy, Neuromuscular Re-education, Patient/Caregiver Education, Self-Care/Home Management, Sensory Integration,Soft Tissue Mobilization,Taping, Therapeutic Activities, Therapeutic Exercises, Vestibular Rehabilitation Modalities Cold Pack/Ice Massage,Electric Stimulation,Hot Packs, Ultrasound Other Referrals/Consults Referrals/Consults Recommended Follow-up with dietition/ superintendent power re: DM, diet, cognitive screen given medical issues and memory trouble Next Visit Focus/Plan Next Note Type Treatment Note Next Visit Plan Assess response to last tx: HEP review and initiated ball roll LS. Continue per PT POC: Progress sitting exercises as pt tolerates including recumbent stepper.
--- NOTE | 2020-05-13 10:29 | PT.OTN ---
Current Diagnoses Unilateral post-traumatic osteoarthritis, right hip (05/13/20) Spondylolisthesis, lumbar region (05/13/20) Trochanteric bursitis, right hip (05/13/20) Physical Therapy Treatment Note PT-OP-A Visit Information Start: 04/18/20 13:34 Freq: Status: Active Protocol: Document 05/13/20 09:46 MB (Rec: 05/13/20 10:15 MB [id number]) Out-Patient Physical Therapy Visit Information Visit Information Visit Type Treatment Note Visit Note Medicare Regence Visit Start Time 09:46 Visit Stop Time 10:26 Total Visit Minutes 40 Visit Number 5 PT-OP-B Current Condition Start: 04/18/20 13:34 Freq: Status: Active Protocol: Document 04/19/20 09:48 MB (Rec: 04/19/20 10:06 MB [id number]) Current Condition History of Current Condition Onset Date 6-9 months Current Complaints Imbalance and pain in the back of his legs that limits his mobility History of Current Condition Pt reports that he had a lumbar injection 6 months ago and then he had a pain in the back of his buttocks and legs. Pt saw Dr. Osei and she reported that pt needs exercises. He has a history of injections in the right hip 2 years ago. He was told he did not yet need a hip replacement. He rates pain as 5/10 in the back of both legs. PMH includes spinal stenosis, lumbar spondylolisthesis, right trochanteric bursitis, essential hypertension, polymyalgia rheumatica, PT in the past and pt cannot remember what for and what helped, BPH with urinary obstruction and surgery, CAD, DM, PVD Pt reports imbalance and constant hissing in his ears. He is waiting for an appointment. He reports dizziness that is random. Looking up at the ceiling is problematic. Pt reports falls with last fall last year. This occurred when getting OOB and the EMT had to get him up and brought him to the ED. He had another previous fall in a parking lot when he was changing his shoes. He fell to the side and hit his head. He did not go to the hospital. He has a straight cane that he occ uses. Pt lives at home with his . There are a couple of steps getting into the house and he has a hand rail. He drives himself. Pt reports that the pain in the back of his legs limits him walking more than a block. He has been sitting around the house eating and has been putting on weight. Pt denies sensory changes in his legs. He states that his feet are not in the best shape. He had to get velcro for his shoes because he could not reach sufficiently and had trouble bending over for a while d/t dizziness. Prior Treatments and Tests PT, spinal and right hip injections Treatment Goals Patient/Caregiver Goals To decrease the pain and increase mobility PT-OP-C Subjective Start: 04/18/20 13:34 Freq: Status: Active Protocol: Document 05/13/20 09:46 MB (Rec: 05/13/20 10:15 MB [id number]) OP-PT Subjective Patient Comments Patient Comments I've been having a lot of pain in the morning and pt points to posterior legs. He reports SOB with any activity. Pt to see Dr. Quick for spinal injection next week. His last one did not go too well. PT ed pt to talk with surgeon about what it means if the shot doesn't go too well as far as indication for surgery, since he reports he is thinking about surgery. PT-OP-D Balance Start: 04/18/20 13:34 Freq: Status: Active Protocol: Document 04/19/20 09:48 MB (Rec: 04/19/20 11:19 MB [id number]) OP-PT Balance Assessment Sitting Balance Static Sitting Balance Ability Fair Dynamic Sitting Balance Ability Fair Sitting Balance Comments UE support static sitting Standing Balance Static Standing Balance Ability Fair Dynamic Standing Balance Ability Poor Standing Balance Comments CGA static standing after getting up from hook lying, positive orthostatics Mendez Fall Scale Copyright Permission PT-OP-G Mobility & Gait Start: 04/18/20 13:34 Freq: Status: Active Protocol: Document 04/19/20 09:48 MB (Rec: 04/19/20 11:19 MB [id number]) OP Mobility Evaluation Bed Mobility Rolling Min A to assist with right UE to move left side lying to sitting OP Gait Assessment Gait Gait Assistance Required: Independent Distance (Feet) 75 Able to Maintain Weight Bearing Status Yes During Gait Assistive Devices Assistive Device None Orthotic/Prosthetic Devices or Brace: No Gait Deviations General Gait Pattern Antalgic,Decreased Stride Length,Flexed Trunk,Wide Based Gait Factors Limiting Gait Function Factors Limiting Gait Function Limited Range of Motion,Pain, Poor Balance Comments Gait Comments Forward, flexed posture, decreased step-length and foot clearance, slow nirmal PT-OP-J Posture/Palpation/Skin Start: 04/18/20 13:34 Freq: Status: Active Protocol: Document 04/19/20 09:48 MB (Rec: 04/19/20 11:19 MB [id number]) Posture Evaluation Comments Posture Comments Pt standing, socks and no shoes: forward head and rounded shoulders, left tragus 3 in front of left AC joint, Dowager's hump, increased anterior tilt pelvis, flexed posture at hips, right shoulder higher than the left, left thoracic convexity, right iliac crest higher than the left. Pt reports increased B buttock and back across low back with upright posture, he prefers flexion pattern ( sitting) in setting of known stenosis and spondylolisthesis Skin Assessment Other Assessments Skin Assessment Comments Redness forehead. Pt reports skin reaction to antibiotics about a year ago and all his skin peeled and he was adm to hospital and was in the ICU PT-OP-K Range of Motion Start: 04/18/20 13:34 Freq: Status: Active Protocol: Document 04/19/20 09:48 MB (Rec: 04/19/20 11:19 MB [id number]) Cervical Spine Range of Motion Cervical Spine Active Comments Limited active cervical ROM all directions d/t postural and spinal changes Hip Goniometric Range of Motion Hip ROM Limitations Comments Passive SLR very limited, more on the left than the right: 40 deg and 50 deg and PT does not push to the point of back pain, only felt tension limitation and pt reports stretching sensation PT-OP-M Strength Start: 04/18/20 13:34 Freq: Status: Active Protocol: Document 04/19/20 09:48 MB (Rec: 04/19/20 11:19 MB [id number]) Hip Strength Hip Manual Muscle Testing Left Flexion (L2) 3+ Fair+ Abduction 4 Good Adduction 4 Good Comments Pt supine Right Flexion (L2) 5 Normal Abduction 4 Good Adduction 5 Normal Comments Pt supine Knee Strength Knee Manual Muscle Testing Left Flexion (S2) 4 Good Extension (L3) 5 Normal Comments Pt supine Right Flexion (S2) 4 Good Extension (L3) 5 Normal Comments Pt supine Ankle/Foot Strength Ankle and Foot Manual Muscle Testing Left Dorsiflexion (L4) 5 Normal Inversion 5 Normal Eversion (S1) 5 Normal Right Dorsiflexion (L4) 5 Normal Inversion 5 Normal Eversion (S1) 5 Normal Toe Strength Toe Manual Muscle Testing Left Great Toe Extension 4 Good Right Great Toe Extension 5 Normal PT-OP-Q Treatments Start: 04/18/20 13:34 Freq: Status: Active Protocol: Document 05/13/20 09:46 MB (Rec: 05/13/20 10:15 MB [id number]) Cardio Equipment Recumbent Elliptical ([email or web address]) Duration (Minutes) 16 Resistance 3 Seat Position 11 Other Sats 96% and HR 76 BPM before; 97%, 79 BPM after Therapeutic Exercises Sitting Exercises Thoracic rotation Comments [address] and end-range breathing LAQ with AP Comments 5 reps slowly, 5-10 reps AP when leg extended, alternating HS stretch Comments B 30 sec with toes up Standing Exercises Racquet ball STM Side bilateral Comments B QL and glutes today Self-Care/Home Management Treatment Education Other Education PT wrote out list for pt to ask spinal surgeon: 1-What does it indicate as far as surgery if the shots do not help or make my leg symptoms worse? 2-What % chance of improvement do I have if I get surgery? 3-With my cardiac, diabetes, and weight issues, do I have any other concerns? PT-OP-T Assessment and Plan Start: 04/18/20 13:34 Freq: Status: Active Protocol: Document 05/13/20 09:46 MB (Rec: 05/13/20 10:15 MB [id number]) Physical Therapy Assessment Rehab Potential Rehabilitation Potential Fair Evaluation Complexity Number of Personal Factors/Comorbidities 1-2 Number of Body Systems Impaired 3 Clinical Presentation at Evaluation Evolving Impairments Impairments Activity Tolerance,Balance, Functional Activities, Functional Mobility,Gait, Integument,Pain,Posture,ROM, Soft Tissue Mobility,Strength, Vestibular Other Impairments Personal factors include poor hydration habits (decreased non-caffeinated fluid intake with daily coffee, Coke Zero and alcohol consumption), poor memory and history of falls. Body systems affected include metabolic (DM), cardiopulmonary and musculoskeletal. His clinical presentation is evolving. Other Concerns Fall Risk Yes Goals 5 Custodial Goal (LTG) Pt will present with improved left hip flexion strength to at least 4/5 to improve sit to stands by 06/17/20. LTG Duration 8 weeks Four Custodial Goal (LTG) Pt marivel present WNLs on a standardized balance test to decrease fall risk by 06/17/20. LTG Duration 8 weeks Three Impairment LE score 34/80 Tax Expert Goal (LTG) Pt will present with an improved LEF score to reflect no more than 30% impairment to improve mobility and gait by 06/17/20. LTG Duration 8 weeks Two Tax Expert Goal (LTG) Pt will perform progressive HEP with I including pelvic realignment, flexibility, balance, gait and strengthening exercises to improve overall functional strength by 06/17/20. LTG Duration 8 weeks One Tax Expert Goal (LTG) Pt will perform at least 10 reps sit to stand without UE support in 30 sec to improve functional strength and decrease fall risk with transfers by 06/17/20. LTG Duration 8 weeks Assessment Summary Assessment Pt reports eating a lot of lemoncello almonds. He reports passing out in the bed in the evening and was in that condition until noon the next day, when he regained consciousness. PT writes out list of questions for pt to ask surgeon next week when he gets his lumbar injection. Overall, PT is concerned about pt as far as getting an injection d/t DM and cognitive changes and because he said the first shot didn't help. PT is concerned about surgery for these reasons as well and d/t his weight and cardiac history. He has not been performing exercises at home. Increased time on recumbent stepper today as it is safe for exercises and PT can monitor sats and HR and it is good exercise for him. Physical Therapy Plan Frequency and Duration Frequency of Treatment 2x/Week Duration of Treatment 8 weeks Plan of Care Start Date 04/19/20 Plan of Care End Date 06/17/20 Therapeutic Interventions Therapeutic Interventions Balance Training,Canalithic Repositioning,Gait Training, Home Exercise Program,Joint Mobilizations,Manual Therapy, Neuromuscular Re-education, Patient/Caregiver Education, Self-Care/Home Management, Sensory Integration,Soft Tissue Mobilization,Taping, Therapeutic Activities, Therapeutic Exercises, Vestibular Rehabilitation Modalities Cold Pack/Ice Massage,Electric Stimulation,Hot Packs, Ultrasound Other Referrals/Consults Referrals/Consults Recommended Follow-up with dietition/ investment consultant re: DM, diet, cognitive screen given medical issues and memory trouble Next Visit Focus/Plan Next Note Type Treatment Note Next Visit Plan Consider MOCA, ongoing recumbent stepper. Consider ball squeeze sitting, QL stretch, clam with band in sitting
--- NOTE | 2020-05-17 10:56 | PT-OP ANOTE ---
Pt no showed appointment. PT calls cell and home numbers and leaves message on cell including next appointment time and date and to call back if he cannot make.
--- NOTE | 2020-05-19 11:18 | PT.OTN ---
Current Diagnoses Unilateral post-traumatic osteoarthritis, right hip (05/19/20) Spondylolisthesis, lumbar region (05/19/20) Trochanteric bursitis, right hip (05/19/20) Physical Therapy Treatment Note PT-OP-A Visit Information Start: 04/18/20 13:34 Freq: Status: Active Protocol: Document 05/19/20 10:35 SP (Rec: 05/19/20 12:46 SP [id number]) Out-Patient Physical Therapy Visit Information Visit Information Visit Type Treatment Note Visit Note Medicare Regence Visit Start Time 10:35 Visit Stop Time 11:18 Total Visit Minutes 43 Visit Number 6 PT-OP-B Current Condition Start: 04/18/20 13:34 Freq: Status: Active Protocol: Document 04/19/20 09:48 MB (Rec: 04/19/20 10:06 MB [id number]) Current Condition History of Current Condition Onset Date 6-9 months Current Complaints Imbalance and pain in the back of his legs that limits his mobility History of Current Condition Pt reports that he had a lumbar injection 6 months ago and then he had a pain in the back of his buttocks and legs. Pt saw Dr. Osei and she reported that pt needs exercises. He has a history of injections in the right hip 2 years ago. He was told he did not yet need a hip replacement. He rates pain as 5/10 in the back of both legs. PMH includes spinal stenosis, lumbar spondylolisthesis, right trochanteric bursitis, essential hypertension, polymyalgia rheumatica, PT in the past and pt cannot remember what for and what helped, BPH with urinary obstruction and surgery, CAD, DM, PVD Pt reports imbalance and constant hissing in his ears. He is waiting for an appointment. He reports dizziness that is random. Looking up at the ceiling is problematic. Pt reports falls with last fall last year. This occurred when getting OOB and the EMT had to get him up and brought him to the ED. He had another previous fall in a parking lot when he was changing his shoes. He fell to the side and hit his head. He did not go to the hospital. He has a straight cane that he occ uses. Pt lives at home with his . There are a couple of steps getting into the house and he has a hand rail. He drives himself. Pt reports that the pain in the back of his legs limits him walking more than a block. He has been sitting around the house eating and has been putting on weight. Pt denies sensory changes in his legs. He states that his feet are not in the best shape. He had to get velcro for his shoes because he could not reach sufficiently and had trouble bending over for a while d/t dizziness. Prior Treatments and Tests PT, spinal and right hip injections Treatment Goals Patient/Caregiver Goals To decrease the pain and increase mobility PT-OP-C Subjective Start: 04/18/20 13:34 Freq: Status: Active Protocol: Document 05/19/20 10:35 SP (Rec: 05/19/20 12:46 SP [id number]) OP-PT Subjective Patient Comments Patient Comments Got my back injection last Tues this week. Still have about 2/10 LB pain but alot less and able to walk more and seems to be faster now. Did see a hearing physcian recently but didn't address the hissing in ears or dizziness so not sure was a helful appt,didn't see his usual practioner. PT-OP-D Balance Start: 04/18/20 13:34 Freq: Status: Active Protocol: Document 04/19/20 09:48 MB (Rec: 04/19/20 11:19 MB [id number]) OP-PT Balance Assessment Sitting Balance Static Sitting Balance Ability Fair Dynamic Sitting Balance Ability Fair Sitting Balance Comments UE support static sitting Standing Balance Static Standing Balance Ability Fair Dynamic Standing Balance Ability Poor Standing Balance Comments CGA static standing after getting up from hook lying, positive orthostatics Mendez Fall Scale Copyright Permission PT-OP-G Mobility & Gait Start: 04/18/20 13:34 Freq: Status: Active Protocol: Document 04/19/20 09:48 MB (Rec: 04/19/20 11:19 MB [id number]) OP Mobility Evaluation Bed Mobility Rolling Min A to assist with right UE to move left side lying to sitting OP Gait Assessment Gait Gait Assistance Required: Independent Distance (Feet) 75 Able to Maintain Weight Bearing Status Yes During Gait Assistive Devices Assistive Device None Orthotic/Prosthetic Devices or Brace: No Gait Deviations General Gait Pattern Antalgic,Decreased Stride Length,Flexed Trunk,Wide Based Gait Factors Limiting Gait Function Factors Limiting Gait Function Limited Range of Motion,Pain, Poor Balance Comments Gait Comments Forward, flexed posture, decreased step-length and foot clearance, slow nirmal PT-OP-J Posture/Palpation/Skin Start: 04/18/20 13:34 Freq: Status: Active Protocol: Document 04/19/20 09:48 MB (Rec: 04/19/20 11:19 MB [id number]) Posture Evaluation Comments Posture Comments Pt standing, socks and no shoes: forward head and rounded shoulders, left tragus 3 in front of left AC joint, Dowager's hump, increased anterior tilt pelvis, flexed posture at hips, right shoulder higher than the left, left thoracic convexity, right iliac crest higher than the left. Pt reports increased B buttock and back across low back with upright posture, he prefers flexion pattern ( sitting) in setting of known stenosis and spondylolisthesis Skin Assessment Other Assessments Skin Assessment Comments Redness forehead. Pt reports skin reaction to antibiotics about a year ago and all his skin peeled and he was adm to hospital and was in the ICU PT-OP-K Range of Motion Start: 04/18/20 13:34 Freq: Status: Active Protocol: Document 04/19/20 09:48 MB (Rec: 04/19/20 11:19 MB [id number]) Cervical Spine Range of Motion Cervical Spine Active Comments Limited active cervical ROM all directions d/t postural and spinal changes Hip Goniometric Range of Motion Hip ROM Limitations Comments Passive SLR very limited, more on the left than the right: 40 deg and 50 deg and PT does not push to the point of back pain, only felt tension limitation and pt reports stretching sensation PT-OP-M Strength Start: 04/18/20 13:34 Freq: Status: Active Protocol: Document 04/19/20 09:48 MB (Rec: 04/19/20 11:19 MB [id number]) Hip Strength Hip Manual Muscle Testing Left Flexion (L2) 3+ Fair+ Abduction 4 Good Adduction 4 Good Comments Pt supine Right Flexion (L2) 5 Normal Abduction 4 Good Adduction 5 Normal Comments Pt supine Knee Strength Knee Manual Muscle Testing Left Flexion (S2) 4 Good Extension (L3) 5 Normal Comments Pt supine Right Flexion (S2) 4 Good Extension (L3) 5 Normal Comments Pt supine Ankle/Foot Strength Ankle and Foot Manual Muscle Testing Left Dorsiflexion (L4) 5 Normal Inversion 5 Normal Eversion (S1) 5 Normal Right Dorsiflexion (L4) 5 Normal Inversion 5 Normal Eversion (S1) 5 Normal Toe Strength Toe Manual Muscle Testing Left Great Toe Extension 4 Good Right Great Toe Extension 5 Normal PT-OP-Q Treatments Start: 04/18/20 13:34 Freq: Status: Active Protocol: Document 05/19/20 10:35 SP (Rec: 05/19/20 12:46 SP [id number]) Cardio Equipment Recumbent Elliptical ([employer] Duration (Minutes) 10 Resistance 3>4 Seat Position 11 Other Sats 96% and HR 76 BPM last tx before; 98%, 89 BPM with activity:LATONIA 11-12 Therapeutic Exercises Sitting Exercises Thoracic rotation Sitting Exercise Name R and L [employer] ( review HEP) Reps/Minutes 5 reps, 2 slow deep breathes at end feel of comfort Comments 2 reps both ways and end-range breathing Sit to stands Sitting Exercise Name review HEP Comments 30 sec: 5 reps without UE support HS stretch Sitting Exercise Name review HEP Comments B 30 sec with toes up Standing Exercises QL/ Lat/ ab stretch Standing Exercise Name side bend (slide hand down leg ) Side bilateral Reps/Minutes 20 sec R and L Comments cued tall posture- no pain good stretch opposite side Racquet ball STM Side bilateral Comments B QL and glutes today Self-Care/Home Management Treatment Education Patient Education Body Mechanics,Pain Management ,Posture,Safety Other Education Education on performing HEP for decreased tightness carryovery at home for back and hip flexibility health. PT-OP-T Assessment and Plan Start: 04/18/20 13:34 Freq: Status: Active Protocol: Document 05/19/20 10:35 SP (Rec: 05/19/20 12:46 SP [id number]) Physical Therapy Assessment Goals 5 Correction Goal (LTG) Pt will present with improved left hip flexion strength to at least 4/5 to improve sit to stands by 06/17/20. LTG Duration 8 weeks Four User Experience Developer Goal (LTG) Pt marivel present WNLs on a standardized balance test to decrease fall risk by 06/17/20. LTG Duration 8 weeks Three Impairment LE score 34/80 Correction Goal (LTG) Pt will present with an improved LEF score to reflect no more than 30% impairment to improve mobility and gait by 06/17/20. LTG Duration 8 weeks Two User Experience Developer Goal (LTG) Pt will perform progressive HEP with I including pelvic realignment, flexibility, balance, gait and strengthening exercises to improve overall functional strength by 06/17/20. LTG Duration 8 weeks One User Experience Developer Goal (LTG) Pt will perform at least 10 reps sit to stand without UE support in 30 sec to improve functional strength and decrease fall risk with transfers by 06/17/20. LTG Duration 8 weeks Assessment Summary Assessment Pt reported LATONIA exersion 12 during cardio biodex and when completed stated experienced pressure in B ears, assessed vitals: BP 160/105 RUE LUE 162/100. Post 3 min rest: R UE BP 125/95- less pressure in B ears but still there. Education on safety awareness during acitivitiy with verbal confirmation hasn't felt this before. Supervising PT made aware and will assess vestibular in near future tx with pt aware to contact PCM if this worsens. Tx reviewed flexibility HEP of which states isn't good about doing. Pt more segmental mobility TS rotation and arm swing noted when leaving, with verbal cuing for continued mobilty for back health. Physical Therapy Plan Frequency and Duration Frequency of Treatment 2x/Week Duration of Treatment 8 weeks Plan of Care Start Date 04/19/20 Plan of Care End Date 06/17/20 Therapeutic Interventions Therapeutic Interventions Balance Training,Canalithic Repositioning,Gait Training, Home Exercise Program,Joint Mobilizations,Manual Therapy, Neuromuscular Re-education, Patient/Caregiver Education, Self-Care/Home Management, Sensory Integration,Soft Tissue Mobilization,Taping, Therapeutic Activities, Therapeutic Exercises, Vestibular Rehabilitation Modalities Cold Pack/Ice Massage,Electric Stimulation,Hot Packs, Ultrasound Other Referrals/Consults Referrals/Consults Recommended Follow-up with dietition/ php programmer re: DM, diet, cognitive screen given medical issues and memory trouble Next Visit Focus/Plan Next Note Type Treatment Note Next Visit Plan Assess response to HEP flexibility, added side bend QL stretch. Consider MOCA and vestibular assessments, ongoing recumbent stepper. Consider ball squeeze sitting, QL stretch, clam with band in sitting
--- NOTE | 2020-05-24 11:27 | PT.OTN ---
Current Diagnoses Unilateral post-traumatic osteoarthritis, right hip (05/24/20) Spondylolisthesis, lumbar region (05/24/20) Trochanteric bursitis, right hip (05/24/20) Physical Therapy Treatment Note PT-OP-A Visit Information Start: 04/18/20 13:34 Freq: Status: Active Protocol: Document 05/24/20 10:36 SP (Rec: 05/24/20 12:42 SP [id number]) Out-Patient Physical Therapy Visit Information Visit Information Visit Type Treatment Note Visit Note Medicare Regence Visit Start Time 10:36 Visit Stop Time 11:27 Total Visit Minutes 51 Visit Number 7 Number of HARNESS AND BAG INSPECTOR Visits 2 PT-OP-B Current Condition Start: 04/18/20 13:34 Freq: Status: Active Protocol: Document 04/19/20 09:48 MB (Rec: 04/19/20 10:06 MB [id number]) Current Condition History of Current Condition Onset Date 6-9 months Current Complaints Imbalance and pain in the back of his legs that limits his mobility History of Current Condition Pt reports that he had a lumbar injection 6 months ago and then he had a pain in the back of his buttocks and legs. Pt saw Dr. Osei and she reported that pt needs exercises. He has a history of injections in the right hip 2 years ago. He was told he did not yet need a hip replacement. He rates pain as 5/10 in the back of both legs. PMH includes spinal stenosis, lumbar spondylolisthesis, right trochanteric bursitis, essential hypertension, polymyalgia rheumatica, PT in the past and pt cannot remember what for and what helped, BPH with urinary obstruction and surgery, CAD, DM, PVD Pt reports imbalance and constant hissing in his ears. He is waiting for an appointment. He reports dizziness that is random. Looking up at the ceiling is problematic. Pt reports falls with last fall last year. This occurred when getting OOB and the EMT had to get him up and brought him to the ED. He had another previous fall in a parking lot when he was changing his shoes. He fell to the side and hit his head. He did not go to the hospital. He has a straight cane that he occ uses. Pt lives at home with his . There are a couple of steps getting into the house and he has a hand rail. He drives himself. Pt reports that the pain in the back of his legs limits him walking more than a block. He has been sitting around the house eating and has been putting on weight. Pt denies sensory changes in his legs. He states that his feet are not in the best shape. He had to get velcro for his shoes because he could not reach sufficiently and had trouble bending over for a while d/t dizziness. Prior Treatments and Tests PT, spinal and right hip injections Treatment Goals Patient/Caregiver Goals To decrease the pain and increase mobility PT-OP-C Subjective Start: 04/18/20 13:34 Freq: Status: Active Protocol: Document 05/24/20 10:36 SP (Rec: 05/24/20 12:42 SP [id number]) OP-PT Subjective Patient Comments Patient Comments Pt reported feel am doing better since his back injection last week,not sure how long it takes for effectiveness and long lasts. Had a good day yesterday LBP and today 04/13. Am able to mops the floors and more. PT-OP-D Balance Start: 04/18/20 13:34 Freq: Status: Active Protocol: Document 04/19/20 09:48 MB (Rec: 04/19/20 11:19 MB [id number]) OP-PT Balance Assessment Sitting Balance Static Sitting Balance Ability Fair Dynamic Sitting Balance Ability Fair Sitting Balance Comments UE support static sitting Standing Balance Static Standing Balance Ability Fair Dynamic Standing Balance Ability Poor Standing Balance Comments CGA static standing after getting up from hook lying, positive orthostatics Mendez Fall Scale Copyright Permission PT-OP-G Mobility & Gait Start: 04/18/20 13:34 Freq: Status: Active Protocol: Document 04/19/20 09:48 MB (Rec: 04/19/20 11:19 MB [id number]) OP Mobility Evaluation Bed Mobility Rolling Min A to assist with right UE to move left side lying to sitting OP Gait Assessment Gait Gait Assistance Required: Independent Distance (Feet) 75 Able to Maintain Weight Bearing Status Yes During Gait Assistive Devices Assistive Device None Orthotic/Prosthetic Devices or Brace: No Gait Deviations General Gait Pattern Antalgic,Decreased Stride Length,Flexed Trunk,Wide Based Gait Factors Limiting Gait Function Factors Limiting Gait Function Limited Range of Motion,Pain, Poor Balance Comments Gait Comments Forward, flexed posture, decreased step-length and foot clearance, slow nirmal PT-OP-J Posture/Palpation/Skin Start: 04/18/20 13:34 Freq: Status: Active Protocol: Document 04/19/20 09:48 MB (Rec: 04/19/20 11:19 MB [id number]) Posture Evaluation Comments Posture Comments Pt standing, socks and no shoes: forward head and rounded shoulders, left tragus 3 in front of left AC joint, Dowager's hump, increased anterior tilt pelvis, flexed posture at hips, right shoulder higher than the left, left thoracic convexity, right iliac crest higher than the left. Pt reports increased B buttock and back across low back with upright posture, he prefers flexion pattern ( sitting) in setting of known stenosis and spondylolisthesis Skin Assessment Other Assessments Skin Assessment Comments Redness forehead. Pt reports skin reaction to antibiotics about a year ago and all his skin peeled and he was adm to hospital and was in the ICU PT-OP-K Range of Motion Start: 04/18/20 13:34 Freq: Status: Active Protocol: Document 04/19/20 09:48 MB (Rec: 04/19/20 11:19 MB [id number]) Cervical Spine Range of Motion Cervical Spine Active Comments Limited active cervical ROM all directions d/t postural and spinal changes Hip Goniometric Range of Motion Hip ROM Limitations Comments Passive SLR very limited, more on the left than the right: 40 deg and 50 deg and PT does not push to the point of back pain, only felt tension limitation and pt reports stretching sensation PT-OP-M Strength Start: 04/18/20 13:34 Freq: Status: Active Protocol: Document 04/19/20 09:48 MB (Rec: 04/19/20 11:19 MB [id number]) Hip Strength Hip Manual Muscle Testing Left Flexion (L2) 3+ Fair+ Abduction 4 Good Adduction 4 Good Comments Pt supine Right Flexion (L2) 5 Normal Abduction 4 Good Adduction 5 Normal Comments Pt supine Knee Strength Knee Manual Muscle Testing Left Flexion (S2) 4 Good Extension (L3) 5 Normal Comments Pt supine Right Flexion (S2) 4 Good Extension (L3) 5 Normal Comments Pt supine Ankle/Foot Strength Ankle and Foot Manual Muscle Testing Left Dorsiflexion (L4) 5 Normal Inversion 5 Normal Eversion (S1) 5 Normal Right Dorsiflexion (L4) 5 Normal Inversion 5 Normal Eversion (S1) 5 Normal Toe Strength Toe Manual Muscle Testing Left Great Toe Extension 4 Good Right Great Toe Extension 5 Normal PT-OP-Q Treatments Start: 04/18/20 13:34 Freq: Status: Active Protocol: Document 05/24/20 10:36 SP (Rec: 05/24/20 12:42 SP [id number]) Cardio Equipment Recumbent Stepper ([employer]) Duration (Minutes) 6 Resistance 2.0 Seat Position 14 Other 0.82 miles, 64 RPMs, 98% RA and HR at 80bpm, LATONIA 10 Gym Equipment Shuttle Recovery Unilateral Squats Details cued knee alignment, core facil/ neutral spine, post chain press Resistance 37# Shuttle Recovery Platform Stable Reps/Time x10 Bilateral Squats Details cued knee alignment, core facil/ neutral spine, post chain press Resistance 75# Shuttle Recovery Platform Stable Reps/Time 2 x 10 Therapeutic Exercises Sitting Exercises Sit to stands Sitting Exercise Name review HEP Reps/Minutes x5 arms front- c hallenged arms crossed but want to work on this form at Comments arms across chest- test for time next tx. HS stretch Sitting Exercise Name review HEP Comments B 30 sec with toes up Standing Exercises self eccentric squat hold post Standing Exercise Name pt requested reviewed self form Resistance AROM Equipment Used post Reps/Minutes x10 Comments good back posture, >90 deg knee/ hip flex. QL/ Lat/ ab stretch Standing Exercise Name side bend (slide hand down leg ) Side bilateral Equipment Used review Reps/Minutes 20 sec R and L Comments occasional cue tall posture- no pain good stretch opposite side Racquet ball STM Standing Exercise Name stated doing at home- helpful Comments not performed today stair lunge for hip flexor stretch Standing Exercise Name lunge facing wall for calf and hip flexor stretch Side bilateral Equipment Used reviewed HEPd Reps/Minutes 30 x2 each Comments cued PPT, core awareness (no LB arch- good form) PT-OP-T Assessment and Plan Start: 04/18/20 13:34 Freq: Status: Active Protocol: Document 05/24/20 10:36 SP (Rec: 05/24/20 12:42 SP [id number]) Physical Therapy Assessment Goals 5 Detention Goal (LTG) Pt will present with improved left hip flexion strength to at least 4/5 to improve sit to stands by 06/17/20. LTG Duration 8 weeks Four Constitutional Law Professor Goal (LTG) Pt marivel present WNLs on a standardized balance test to decrease fall risk by 06/17/20. LTG Duration 8 weeks Three Impairment LE score 34/80 Constitutional Law Professor Goal (LTG) Pt will present with an improved LEF score to reflect no more than 30% impairment to improve mobility and gait by 06/17/20. LTG Duration 8 weeks Two Detention Goal (LTG) Pt will perform progressive HEP with I including pelvic realignment, flexibility, balance, gait and strengthening exercises to improve overall functional strength by 06/17/20. 05/24/20: stretches: HS, hip flex, QL, LS, squats, seated hip abd TB & hip add isometric . LTG Duration 8 weeks One Constitutional Law Professor Goal (LTG) Pt will perform at least 10 reps sit to stand without UE support in 30 sec to improve functional strength and decrease fall risk with transfers by 06/17/20. LTG Duration 8 weeks Assessment Summary Assessment Pt responding well to flexibility, TA and LE strengthening so added to HEP. Pt reported mostly just muscle tiring after tx. He feels is progressing well and hopeful to get back to playing golf, is able to complete more ADLs at home: mopping floors +. Physical Therapy Plan Frequency and Duration Frequency of Treatment 2x/Week Duration of Treatment 8 weeks Plan of Care Start Date 04/19/20 Plan of Care End Date 06/17/20 Therapeutic Interventions Therapeutic Interventions Balance Training,Canalithic Repositioning,Gait Training, Home Exercise Program,Joint Mobilizations,Manual Therapy, Neuromuscular Re-education, Patient/Caregiver Education, Self-Care/Home Management, Sensory Integration,Soft Tissue Mobilization,Taping, Therapeutic Activities, Therapeutic Exercises, Vestibular Rehabilitation Modalities Cold Pack/Ice Massage,Electric Stimulation,Hot Packs, Ultrasound Other Referrals/Consults Referrals/Consults Recommended Follow-up with dietition/ professor of food biochemistry re: DM, diet, cognitive screen given medical issues and memory trouble Next Visit Focus/Plan Next Note Type Treatment Note Next Visit Plan Assess response to HEP flexibility, TA / hip strengthening, initiated ball squeeze sitting, QL stretch, clam with band in sitting last tx. Consider MOCA and vestibular assessments, ongoing recumbent stepper. Next tx review HEP and if time incorporated gym equip to for safety form to get back to gym.
--- NOTE | 2020-05-26 13:01 | PT.OTN ---
Addendum entered and electronically signed by Macy Simpson PT 05/31/20 10:49: Send to Dr. Medina Original Note: Current Diagnoses Unilateral post-traumatic osteoarthritis, right hip (05/26/20) Spondylolisthesis, lumbar region (05/26/20) Trochanteric bursitis, right hip (05/26/20) Physical Therapy Treatment Note PT-OP-A Visit Information Start: 04/18/20 13:34 Freq: Status: Active Protocol: Document 05/26/20 12:33 MB (Rec: 05/26/20 12:59 MB [id number]) Out-Patient Physical Therapy Visit Information Visit Information Visit Type Treatment Note Visit Note Medicare Regence Pt arrives 18 minutes late to treatment Visit Start Time 12:33 Visit Stop Time 13:00 Total Visit Minutes 27 Visit Number 8 Number of JOURNAL BOX INSPECTOR Visits 0 PT-OP-B Current Condition Start: 04/18/20 13:34 Freq: Status: Active Protocol: Document 04/19/20 09:48 MB (Rec: 04/19/20 10:06 MB [id number]) Current Condition History of Current Condition Onset Date 6-9 months Current Complaints Imbalance and pain in the back of his legs that limits his mobility History of Current Condition Pt reports that he had a lumbar injection 6 months ago and then he had a pain in the back of his buttocks and legs. Pt saw Dr. Osei and she reported that pt needs exercises. He has a history of injections in the right hip 2 years ago. He was told he did not yet need a hip replacement. He rates pain as 5/10 in the back of both legs. PMH includes spinal stenosis, lumbar spondylolisthesis, right trochanteric bursitis, essential hypertension, polymyalgia rheumatica, PT in the past and pt cannot remember what for and what helped, BPH with urinary obstruction and surgery, CAD, DM, PVD Pt reports imbalance and constant hissing in his ears. He is waiting for an appointment. He reports dizziness that is random. Looking up at the ceiling is problematic. Pt reports falls with last fall last year. This occurred when getting OOB and the EMT had to get him up and brought him to the ED. He had another previous fall in a parking lot when he was changing his shoes. He fell to the side and hit his head. He did not go to the hospital. He has a straight cane that he occ uses. Pt lives at home with his . There are a couple of steps getting into the house and he has a hand rail. He drives himself. Pt reports that the pain in the back of his legs limits him walking more than a block. He has been sitting around the house eating and has been putting on weight. Pt denies sensory changes in his legs. He states that his feet are not in the best shape. He had to get velcro for his shoes because he could not reach sufficiently and had trouble bending over for a while d/t dizziness. Prior Treatments and Tests PT, spinal and right hip injections Treatment Goals Patient/Caregiver Goals To decrease the pain and increase mobility PT-OP-C Subjective Start: 04/18/20 13:34 Freq: Status: Active Protocol: Document 05/26/20 12:33 MB (Rec: 05/26/20 12:59 MB [id number]) OP-PT Subjective Patient Comments Patient Comments The pain is about 1 or 2 in the morning and is lasting so that I can do more activities during the day. Pt states that he con't with dizziness problem and cannot state what makes it better or worse. Pt is going to call the gym to make an appointment to work out. He thought that his appointment was at 12:30. PT-OP-D Balance Start: 04/18/20 13:34 Freq: Status: Active Protocol: Document 04/19/20 09:48 MB (Rec: 04/19/20 11:19 MB [id number]) OP-PT Balance Assessment Sitting Balance Static Sitting Balance Ability Fair Dynamic Sitting Balance Ability Fair Sitting Balance Comments UE support static sitting Standing Balance Static Standing Balance Ability Fair Dynamic Standing Balance Ability Poor Standing Balance Comments CGA static standing after getting up from hook lying, positive orthostatics Mendez Fall Scale Copyright Permission PT-OP-G Mobility & Gait Start: 04/18/20 13:34 Freq: Status: Active Protocol: Document 04/19/20 09:48 MB (Rec: 04/19/20 11:19 MB [id number]) OP Mobility Evaluation Bed Mobility Rolling Min A to assist with right UE to move left side lying to sitting OP Gait Assessment Gait Gait Assistance Required: Independent Distance (Feet) 75 Able to Maintain Weight Bearing Status Yes During Gait Assistive Devices Assistive Device None Orthotic/Prosthetic Devices or Brace: No Gait Deviations General Gait Pattern Antalgic,Decreased Stride Length,Flexed Trunk,Wide Based Gait Factors Limiting Gait Function Factors Limiting Gait Function Limited Range of Motion,Pain, Poor Balance Comments Gait Comments Forward, flexed posture, decreased step-length and foot clearance, slow nirmal PT-OP-J Posture/Palpation/Skin Start: 04/18/20 13:34 Freq: Status: Active Protocol: Document 04/19/20 09:48 MB (Rec: 04/19/20 11:19 MB [id number]) Posture Evaluation Comments Posture Comments Pt standing, socks and no shoes: forward head and rounded shoulders, left tragus 3 in front of left AC joint, Dowager's hump, increased anterior tilt pelvis, flexed posture at hips, right shoulder higher than the left, left thoracic convexity, right iliac crest higher than the left. Pt reports increased B buttock and back across low back with upright posture, he prefers flexion pattern ( sitting) in setting of known stenosis and spondylolisthesis Skin Assessment Other Assessments Skin Assessment Comments Redness forehead. Pt reports skin reaction to antibiotics about a year ago and all his skin peeled and he was adm to hospital and was in the ICU PT-OP-K Range of Motion Start: 04/18/20 13:34 Freq: Status: Active Protocol: Document 04/19/20 09:48 MB (Rec: 04/19/20 11:19 MB [id number]) Cervical Spine Range of Motion Cervical Spine Active Comments Limited active cervical ROM all directions d/t postural and spinal changes Hip Goniometric Range of Motion Hip ROM Limitations Comments Passive SLR very limited, more on the left than the right: 40 deg and 50 deg and PT does not push to the point of back pain, only felt tension limitation and pt reports stretching sensation PT-OP-M Strength Start: 04/18/20 13:34 Freq: Status: Active Protocol: Document 04/19/20 09:48 MB (Rec: 04/19/20 11:19 MB [id number]) Hip Strength Hip Manual Muscle Testing Left Flexion (L2) 3+ Fair+ Abduction 4 Good Adduction 4 Good Comments Pt supine Right Flexion (L2) 5 Normal Abduction 4 Good Adduction 5 Normal Comments Pt supine Knee Strength Knee Manual Muscle Testing Left Flexion (S2) 4 Good Extension (L3) 5 Normal Comments Pt supine Right Flexion (S2) 4 Good Extension (L3) 5 Normal Comments Pt supine Ankle/Foot Strength Ankle and Foot Manual Muscle Testing Left Dorsiflexion (L4) 5 Normal Inversion 5 Normal Eversion (S1) 5 Normal Right Dorsiflexion (L4) 5 Normal Inversion 5 Normal Eversion (S1) 5 Normal Toe Strength Toe Manual Muscle Testing Left Great Toe Extension 4 Good Right Great Toe Extension 5 Normal PT-OP-Q Treatments Start: 04/18/20 13:34 Freq: Status: Active Protocol: Document 05/26/20 12:33 MB (Rec: 05/26/20 12:59 MB [id number]) Cardio Equipment Recumbent Stepper (Sci-Fit) Duration (Minutes) 10 Resistance 3 Seat Position 12 Self-Care/Home Management Treatment Education Other Education MOCA today for cognitive screen d/t memory trouble with PT and pt reporting episode of passing out for many hours after eating lemoncellos from [employer]. He is agreeable to testing and MOCA results listed under assessment and scanned into chart. PT-OP-T Assessment and Plan Start: 04/18/20 13:34 Freq: Status: Active Protocol: Document 05/26/20 12:33 MB (Rec: 05/26/20 12:59 MB [id number]) Physical Therapy Assessment Goals 5 Fci Goal (LTG) Pt will present with improved left hip flexion strength to at least 4/5 to improve sit to stands by 06/17/20. LTG Duration 8 weeks Four Web Interface Developer Goal (LTG) Pt marivel present WNLs on a standardized balance test to decrease fall risk by 06/17/20. LTG Duration 8 weeks Three Impairment LE score 34/80 Web Interface Developer Goal (LTG) Pt will present with an improved LEF score to reflect no more than 30% impairment to improve mobility and gait by 06/17/20. LTG Duration 8 weeks Two Web Interface Developer Goal (LTG) Pt will perform progressive HEP with I including pelvic realignment, flexibility, balance, gait and strengthening exercises to improve overall functional strength by 06/17/20. 05/24/20: stretches: HS, hip flex, QL, LS, squats, seated hip abd TB & hip add isometric . LTG Duration 8 weeks One Web Interface Developer Goal (LTG) Pt will perform at least 10 reps sit to stand without UE support in 30 sec to improve functional strength and decrease fall risk with transfers by 06/17/20. LTG Duration 8 weeks Assessment Summary Assessment Pt got appointment time wrong. He is looking into working out at the gym. He likes the leg press. MOCA testing today to determine how his cognition is affecting carryover, learning challenges with PT. MOCA score reflects impairment in visuospatial and recall. His score is 23/30, which is not normal for his age. Pt may benefit from following up with PCP about cognitive changes in setting of diabetes . Physical Therapy Plan Frequency and Duration Frequency of Treatment 2x/Week Duration of Treatment 8 weeks Plan of Care Start Date 04/19/20 Plan of Care End Date 06/17/20 Therapeutic Interventions Therapeutic Interventions Balance Training,Canalithic Repositioning,Gait Training, Home Exercise Program,Joint Mobilizations,Manual Therapy, Neuromuscular Re-education, Patient/Caregiver Education, Self-Care/Home Management, Sensory Integration,Soft Tissue Mobilization,Taping, Therapeutic Activities, Therapeutic Exercises, Vestibular Rehabilitation Modalities Cold Pack/Ice Massage,Electric Stimulation,Hot Packs, Ultrasound Other Referrals/Consults Referrals/Consults Recommended Follow-up with dietition/ multimedia author re: DM, diet, cognitive screen given medical issues and memory trouble Next Visit Focus/Plan Next Note Type Treatment Note Next Visit Plan Assess response to HEP flexibility, TA / hip strengthening, initiated ball squeeze sitting, QL stretch, clam with band in sitting last tx. Consider MOCA and vestibular assessments, ongoing recumbent stepper. Next tx review HEP and if time incorporated gym equip to for safety form to get back to gym.
--- NOTE | 2020-05-31 11:30 | PT.OTN ---
Current Diagnoses Unilateral post-traumatic osteoarthritis, right hip (05/31/20) Spondylolisthesis, lumbar region (05/31/20) Trochanteric bursitis, right hip (05/31/20) Physical Therapy Treatment Note PT-OP-A Visit Information Start: 04/18/20 13:34 Freq: Status: Active Protocol: Document 05/31/20 10:32 SP (Rec: 05/31/20 11:54 SP [id number]) Out-Patient Physical Therapy Visit Information Visit Information Visit Type Treatment Note Visit Note Medicare Regence Vitals pre act: BP 138/90, HR 82 bpm, 92% on RA Post act: BP 152/82, HR 93, 96% on RA Visit Start Time 10:32 Visit Stop Time 11:30 Total Visit Minutes 58 Visit Number 9 Number of DIRECTOR OF CASEWORK Visits 1 PT-OP-B Current Condition Start: 04/18/20 13:34 Freq: Status: Active Protocol: Document 04/19/20 09:48 MB (Rec: 04/19/20 10:06 MB [id number]) Current Condition History of Current Condition Onset Date 6-9 months Current Complaints Imbalance and pain in the back of his legs that limits his mobility History of Current Condition Pt reports that he had a lumbar injection 6 months ago and then he had a pain in the back of his buttocks and legs. Pt saw Dr. Osei and she reported that pt needs exercises. He has a history of injections in the right hip 2 years ago. He was told he did not yet need a hip replacement. He rates pain as 5/10 in the back of both legs. PMH includes spinal stenosis, lumbar spondylolisthesis, right trochanteric bursitis, essential hypertension, polymyalgia rheumatica, PT in the past and pt cannot remember what for and what helped, BPH with urinary obstruction and surgery, CAD, DM, PVD Pt reports imbalance and constant hissing in his ears. He is waiting for an appointment. He reports dizziness that is random. Looking up at the ceiling is problematic. Pt reports falls with last fall last year. This occurred when getting OOB and the EMT had to get him up and brought him to the ED. He had another previous fall in a parking lot when he was changing his shoes. He fell to the side and hit his head. He did not go to the hospital. He has a straight cane that he occ uses. Pt lives at home with his . There are a couple of steps getting into the house and he has a hand rail. He drives himself. Pt reports that the pain in the back of his legs limits him walking more than a block. He has been sitting around the house eating and has been putting on weight. Pt denies sensory changes in his legs. He states that his feet are not in the best shape. He had to get velcro for his shoes because he could not reach sufficiently and had trouble bending over for a while d/t dizziness. Prior Treatments and Tests PT, spinal and right hip injections Treatment Goals Patient/Caregiver Goals To decrease the pain and increase mobility PT-OP-C Subjective Start: 04/18/20 13:34 Freq: Status: Active Protocol: Document 05/31/20 10:32 SP (Rec: 05/31/20 11:54 SP [id number]) OP-PT Subjective Patient Comments Patient Comments Yesterday thinks was dehydrated, and HS are sore doing alot of activities through day. Pt states feels PT is helping and wants to continue PT-OP-D Balance Start: 04/18/20 13:34 Freq: Status: Active Protocol: Document 04/19/20 09:48 MB (Rec: 04/19/20 11:19 MB [id number]) OP-PT Balance Assessment Sitting Balance Static Sitting Balance Ability Fair Dynamic Sitting Balance Ability Fair Sitting Balance Comments UE support static sitting Standing Balance Static Standing Balance Ability Fair Dynamic Standing Balance Ability Poor Standing Balance Comments CGA static standing after getting up from hook lying, positive orthostatics Mendez Fall Scale Copyright Permission PT-OP-G Mobility & Gait Start: 04/18/20 13:34 Freq: Status: Active Protocol: Document 04/19/20 09:48 MB (Rec: 04/19/20 11:19 MB [id number]) OP Mobility Evaluation Bed Mobility Rolling Min A to assist with right UE to move left side lying to sitting OP Gait Assessment Gait Gait Assistance Required: Independent Distance (Feet) 75 Able to Maintain Weight Bearing Status Yes During Gait Assistive Devices Assistive Device None Orthotic/Prosthetic Devices or Brace: No Gait Deviations General Gait Pattern Antalgic,Decreased Stride Length,Flexed Trunk,Wide Based Gait Factors Limiting Gait Function Factors Limiting Gait Function Limited Range of Motion,Pain, Poor Balance Comments Gait Comments Forward, flexed posture, decreased step-length and foot clearance, slow nirmal PT-OP-J Posture/Palpation/Skin Start: 04/18/20 13:34 Freq: Status: Active Protocol: Document 04/19/20 09:48 MB (Rec: 04/19/20 11:19 MB [id number]) Posture Evaluation Comments Posture Comments Pt standing, socks and no shoes: forward head and rounded shoulders, left tragus 3 in front of left AC joint, Dowager's hump, increased anterior tilt pelvis, flexed posture at hips, right shoulder higher than the left, left thoracic convexity, right iliac crest higher than the left. Pt reports increased B buttock and back across low back with upright posture, he prefers flexion pattern ( sitting) in setting of known stenosis and spondylolisthesis Skin Assessment Other Assessments Skin Assessment Comments Redness forehead. Pt reports skin reaction to antibiotics about a year ago and all his skin peeled and he was adm to hospital and was in the ICU PT-OP-K Range of Motion Start: 04/18/20 13:34 Freq: Status: Active Protocol: Document 04/19/20 09:48 MB (Rec: 04/19/20 11:19 MB [id number]) Cervical Spine Range of Motion Cervical Spine Active Comments Limited active cervical ROM all directions d/t postural and spinal changes Hip Goniometric Range of Motion Hip ROM Limitations Comments Passive SLR very limited, more on the left than the right: 40 deg and 50 deg and PT does not push to the point of back pain, only felt tension limitation and pt reports stretching sensation PT-OP-M Strength Start: 04/18/20 13:34 Freq: Status: Active Protocol: Document 04/19/20 09:48 MB (Rec: 04/19/20 11:19 MB [id number]) Hip Strength Hip Manual Muscle Testing Left Flexion (L2) 3+ Fair+ Abduction 4 Good Adduction 4 Good Comments Pt supine Right Flexion (L2) 5 Normal Abduction 4 Good Adduction 5 Normal Comments Pt supine Knee Strength Knee Manual Muscle Testing Left Flexion (S2) 4 Good Extension (L3) 5 Normal Comments Pt supine Right Flexion (S2) 4 Good Extension (L3) 5 Normal Comments Pt supine Ankle/Foot Strength Ankle and Foot Manual Muscle Testing Left Dorsiflexion (L4) 5 Normal Inversion 5 Normal Eversion (S1) 5 Normal Right Dorsiflexion (L4) 5 Normal Inversion 5 Normal Eversion (S1) 5 Normal Toe Strength Toe Manual Muscle Testing Left Great Toe Extension 4 Good Right Great Toe Extension 5 Normal PT-OP-Q Treatments Start: 04/18/20 13:34 Freq: Status: Active Protocol: Document 05/31/20 10:32 SP (Rec: 05/31/20 11:54 SP [id number]) Cardio Equipment Recumbent Elliptical (Biodex) Duration (Minutes) 10 Resistance 3 Seat Position 12 Other see notes for vitals pre/post Gym Equipment Cable Column (Body Solid) LE HS curl Resistance 30# Reps/Time 10x2 Leg Extension Details review for gym Resistance 30# Reps/Time 10 x 2 Shuttle Recovery Unilateral Squats Details cued knee alignment, core facil/ neutral spine, post chain press Resistance 37# Shuttle Recovery Platform Stable Reps/Time x10 Bilateral Squats Details cued knee alignment, core facil/ neutral spine, post chain press Resistance 75# Shuttle Recovery Platform Stable Reps/Time 2 x 10 Therapeutic Exercises Sitting Exercises Thoracic rotation Sitting Exercise Name ( PT only) Side bilateral Resistance TB #2 Equipment Used chair Reps/Minutes 2 x10 Comments cued scap squeeze, tall posture then TA w/ TS rotation HS stretch Sitting Exercise Name review HEP Side bilateral Reps/Minutes 30 sec with toes up Comments cued chest lift hip hinge Standing Exercises hip abd TB Side bilateral Resistance Tb #2 (hold with BUE) Reps/Minutes 2x10 Comments Good tall posture away from back chair carryover hip adduction isometric Equipment Used small purple ball Reps/Minutes 10 sec hold x10 Comments cued tall posture away from backseat QL/ Lat/ ab stretch Standing Exercise Name side bend (slide hand down leg ) Side bilateral Equipment Used review Reps/Minutes 20 sec R and L Comments occasional cue tall posture- no pain good stretch opposite side Other Exercises rolling stick self STMs Other Exercise Name HS (seated) Equipment Used rolling pin Reps/Minutes 30-60 sec Comments cued tall posture, pressure to tolerance PT-OP-T Assessment and Plan Start: 04/18/20 13:34 Freq: Status: Active Protocol: Document 05/31/20 10:32 SP (Rec: 05/31/20 11:54 SP [id number]) Physical Therapy Assessment Goals 5 Regulator Tester Goal (LTG) Pt will present with improved left hip flexion strength to at least 4/5 to improve sit to stands by 06/17/20. LTG Duration 8 weeks Four Fpc Goal (LTG) Pt marivel present WNLs on a standardized balance test to decrease fall risk by 06/17/20. LTG Duration 8 weeks Three Impairment LE score 34/80 Regulator Tester Goal (LTG) Pt will present with an improved LEF score to reflect no more than 30% impairment to improve mobility and gait by 06/17/20. LTG Duration 8 weeks Two Regulator Tester Goal (LTG) Pt will perform progressive HEP with I including pelvic realignment, flexibility, balance, gait and strengthening exercises to improve overall functional strength by 06/17/20. 05/31/20: stretches: HS, hip flex, QL, LS; HEP squats, seated hip abd TB & hip add isometric, TS rotation AROM, lateral side bend. LTG Duration 8 weeks One Regulator Tester Goal (LTG) Pt will perform at least 10 reps sit to stand without UE support in 30 sec to improve functional strength and decrease fall risk with transfers by 06/17/20. LTG Duration 8 weeks Assessment Summary Assessment Tx worked on reviewing gym equipment for TA and hip strengthening prep for future return to gym- no adverse affects, I feel the muscles working and no pain. Pt tolerated increased resistance w/ TA engagement during thoracic rotation in sitting, reviewed flexibility stretching and added manual rolling pin to HS w/ cuing for set up and proper form- brought to attention of hand outs for self recall. Asked to bring in his papers to next appt to use for increased independence. Pt reported felt alot better, looser. Physical Therapy Plan Frequency and Duration Frequency of Treatment 2x/Week Duration of Treatment 8 weeks Plan of Care Start Date 04/19/20 Plan of Care End Date 06/17/20 Therapeutic Interventions Therapeutic Interventions Balance Training,Canalithic Repositioning,Gait Training, Home Exercise Program,Joint Mobilizations,Manual Therapy, Neuromuscular Re-education, Patient/Caregiver Education, Self-Care/Home Management, Sensory Integration,Soft Tissue Mobilization,Taping, Therapeutic Activities, Therapeutic Exercises, Vestibular Rehabilitation Modalities Cold Pack/Ice Massage,Electric Stimulation,Hot Packs, Ultrasound Other Referrals/Consults Referrals/Consults Recommended Follow-up with dietition/ sea foam kiss maker re: DM, diet, cognitive screen given medical issues and memory trouble Next Visit Focus/Plan Next Note Type Treatment Note Next Visit Plan Assess response and continue to review HEP strengthening and flexibility, TA / hip strengthening and review of gym equipment last tx.
--- NOTE | 2020-06-02 11:12 | PT.OTN ---
Current Diagnoses Unilateral post-traumatic osteoarthritis, right hip (06/02/20) Spondylolisthesis, lumbar region (06/02/20) Trochanteric bursitis, right hip (06/02/20) Physical Therapy Treatment Note PT-OP-A Visit Information Start: 04/18/20 13:34 Freq: Status: Active Protocol: Document 06/02/20 10:32 MB (Rec: 06/02/20 11:11 MB [id number]) Out-Patient Physical Therapy Visit Information Visit Information Visit Type Progress Note Visit Note Medicare Reg[place] Visit Start Time 10:32 Visit Stop Time 11:00 Total Visit Minutes 38 Visit Number 10 Number of OPERATIONS TEAM LEADER Visits 0 PT-OP-B Current Condition Start: 04/18/20 13:34 Freq: Status: Active Protocol: Document 04/19/20 09:48 MB (Rec: 04/19/20 10:06 MB [id number]) Current Condition History of Current Condition Onset Date 6-9 months Current Complaints Imbalance and pain in the back of his legs that limits his mobility History of Current Condition Pt reports that he had a lumbar injection 6 months ago and then he had a pain in the back of his buttocks and legs. Pt saw Dr. Osei and she reported that pt needs exercises. He has a history of injections in the right hip 2 years ago. He was told he did not yet need a hip replacement. He rates pain as 5/10 in the back of both legs. PMH includes spinal stenosis, lumbar spondylolisthesis, right trochanteric bursitis, essential hypertension, polymyalgia rheumatica, PT in the past and pt cannot remember what for and what helped, BPH with urinary obstruction and surgery, CAD, DM, PVD Pt reports imbalance and constant hissing in his ears. He is waiting for an appointment. He reports dizziness that is random. Looking up at the ceiling is problematic. Pt reports falls with last fall last year. This occurred when getting OOB and the EMT had to get him up and brought him to the ED. He had another previous fall in a parking lot when he was changing his shoes. He fell to the side and hit his head. He did not go to the hospital. He has a straight cane that he occ uses. Pt lives at home with his . There are a couple of steps getting into the house and he has a hand rail. He drives himself. Pt reports that the pain in the back of his legs limits him walking more than a block. He has been sitting around the house eating and has been putting on weight. Pt denies sensory changes in his legs. He states that his feet are not in the best shape. He had to get velcro for his shoes because he could not reach sufficiently and had trouble bending over for a while d/t dizziness. Prior Treatments and Tests PT, spinal and right hip injections Treatment Goals Patient/Caregiver Goals To decrease the pain and increase mobility PT-OP-C Subjective Start: 04/18/20 13:34 Freq: Status: Active Protocol: Document 06/02/20 10:32 MB (Rec: 06/02/20 11:11 MB [id number]) OP-PT Subjective Patient Comments Patient Comments Pt had a follow-up with Dr. Osei yesterday about his back . He states that his back isn' t feeling as good as it did right after he got his shot. Pt reports that his back was extra sore after working hard with PT earlier in the week. He is not doing the exercises PT gave him. He states they are stretching and he likes to get into squats. PT-OP-D Balance Start: 04/18/20 13:34 Freq: Status: Active Protocol: Document 04/19/20 09:48 MB (Rec: 04/19/20 11:19 MB [id number]) OP-PT Balance Assessment Sitting Balance Static Sitting Balance Ability Fair Dynamic Sitting Balance Ability Fair Sitting Balance Comments UE support static sitting Standing Balance Static Standing Balance Ability Fair Dynamic Standing Balance Ability Poor Standing Balance Comments CGA static standing after getting up from hook lying, positive orthostatics Mendez Fall Scale Copyright Permission PT-OP-G Mobility & Gait Start: 04/18/20 13:34 Freq: Status: Active Protocol: Document 04/19/20 09:48 MB (Rec: 04/19/20 11:19 MB [id number]) OP Mobility Evaluation Bed Mobility Rolling Min A to assist with right UE to move left side lying to sitting OP Gait Assessment Gait Gait Assistance Required: Independent Distance (Feet) 75 Able to Maintain Weight Bearing Status Yes During Gait Assistive Devices Assistive Device None Orthotic/Prosthetic Devices or Brace: No Gait Deviations General Gait Pattern Antalgic,Decreased Stride Length,Flexed Trunk,Wide Based Gait Factors Limiting Gait Function Factors Limiting Gait Function Limited Range of Motion,Pain, Poor Balance Comments Gait Comments Forward, flexed posture, decreased step-length and foot clearance, slow nirmal PT-OP-J Posture/Palpation/Skin Start: 04/18/20 13:34 Freq: Status: Active Protocol: Document 04/19/20 09:48 MB (Rec: 04/19/20 11:19 MB [id number]) Posture Evaluation Comments Posture Comments Pt standing, socks and no shoes: forward head and rounded shoulders, left tragus 3 in front of left AC joint, Dowager's hump, increased anterior tilt pelvis, flexed posture at hips, right shoulder higher than the left, left thoracic convexity, right iliac crest higher than the left. Pt reports increased B buttock and back across low back with upright posture, he prefers flexion pattern ( sitting) in setting of known stenosis and spondylolisthesis Skin Assessment Other Assessments Skin Assessment Comments Redness forehead. Pt reports skin reaction to antibiotics about a year ago and all his skin peeled and he was adm to hospital and was in the ICU PT-OP-K Range of Motion Start: 04/18/20 13:34 Freq: Status: Active Protocol: Document 04/19/20 09:48 MB (Rec: 04/19/20 11:19 MB [id number]) Cervical Spine Range of Motion Cervical Spine Active Comments Limited active cervical ROM all directions d/t postural and spinal changes Hip Goniometric Range of Motion Hip ROM Limitations Comments Passive SLR very limited, more on the left than the right: 40 deg and 50 deg and PT does not push to the point of back pain, only felt tension limitation and pt reports stretching sensation PT-OP-M Strength Start: 04/18/20 13:34 Freq: Status: Active Protocol: Document 04/19/20 09:48 MB (Rec: 04/19/20 11:19 MB [id number]) Hip Strength Hip Manual Muscle Testing Left Flexion (L2) 3+ Fair+ Abduction 4 Good Adduction 4 Good Comments Pt supine Right Flexion (L2) 5 Normal Abduction 4 Good Adduction 5 Normal Comments Pt supine Knee Strength Knee Manual Muscle Testing Left Flexion (S2) 4 Good Extension (L3) 5 Normal Comments Pt supine Right Flexion (S2) 4 Good Extension (L3) 5 Normal Comments Pt supine Ankle/Foot Strength Ankle and Foot Manual Muscle Testing Left Dorsiflexion (L4) 5 Normal Inversion 5 Normal Eversion (S1) 5 Normal Right Dorsiflexion (L4) 5 Normal Inversion 5 Normal Eversion (S1) 5 Normal Toe Strength Toe Manual Muscle Testing Left Great Toe Extension 4 Good Right Great Toe Extension 5 Normal PT-OP-Q Treatments Start: 04/18/20 13:34 Freq: Status: Active Protocol: Document 06/02/20 10:32 MB (Rec: 06/02/20 11:11 MB [id number]) Cardio Equipment Recumbent Elliptical ([place]) Duration (Minutes) 15 Resistance 3 Seat Position 12 Other BP and HR RUE: 146/82, 83 Therapeutic Exercises Sitting Exercises Thoracic rotation Side bilateral Reps/Minutes 3 reps to both sides Comments Keep head with shoulders, deep breaths end-range LAQ with AP Side bilateral Reps/Minutes 3 reps and 5 APs each one Comments Alternating Sit to stands Comments 6 reps in 30 sec today without UE support HS stretch Side bilateral Comments 2 reps each leg with toes up PT-OP-T Assessment and Plan Start: 04/18/20 13:34 Freq: Status: Active Protocol: Document 06/02/20 10:32 MB (Rec: 06/02/20 11:11 MB [id number]) Physical Therapy Assessment Goals 5 Senior Living Goal (LTG) Pt will present with improved left hip flexion strength to 5 /5 to improve sit to stands by 07/01/20. 06/02/20: Left hip flexion in sitting is 4/5, right is 5/5-- this is improvement since evaluation. LTG Duration 4 weeks Four Senior Living Goal (LTG) Pt marivel present WNLs on a standardized balance test to decrease fall risk by 07/01/20. 06/02/20: Romberg in // bars with EO at least 30 sec; with EC, LOB to the left after 4 sec. BP and HR in LUE 157/88, 92. Pt had performed sit to stands before balance testing. LTG Duration 4 weeks Three Impairment LE score 34/80 Entry Level Marketing Representative Goal (LTG) Pt will present with an improved LEF score to reflect no more than 30% impairment to improve mobility and gait by 06/17/20. LTG Duration Discharge this goal as pt presents with some cognitive impairment Two Entry Level Marketing Representative Goal (LTG) Pt will perform progressive HEP with I including pelvic realignment, flexibility, balance, gait and strengthening exercises to improve overall functional strength by 07/01/20. 06/02/20: Pt states that he is not performing the stretches at home that PT has given him. 05/31/20: stretches: HS, hip flex, QL, LS; HEP squats, seated hip abd TB & hip add isometric, TS rotation AROM, lateral side bend. LTG Duration 4 weeks One Senior Living Goal (LTG) Pt will perform at least 10 reps sit to stand without UE support in 30 sec to improve functional strength and decrease fall risk with transfers by 07/01/20. 06/02/20: 6 reps in 30 sec and pt tends to not stand all the way up but remain flexed at hips LTG Duration 4 weeks Assessment Summary Assessment Pt has progressed towards hip flexion strength goal since starting PT. He presents with balance impairment and is not performing his home PT exercises. Sit to stands are difficult but pt performs today. D/cd LEF score d/t cognitive impairments. Pt states that he is not performing PT exercises at home because they are more stretches and he would rather get into squats. Overall, his posture and tightness, carryover and self-awareness make activities like squats more problematic than helpful. Unsure of pt's buy in and compliance with PT education and training and these are barriers to PT. Pt reports overall lower energy makes him less motivated to do things at home. He has had some higher BP/fluctuating BP and reports of dizziness at home. Overall, pt's sedentary lifestyle, increased body mass , stenosis and metabolic changes (DM) as well as decreased compliance with PT at home are barriers to PT. Will con't PT efforts over the month and monitor response/ compliance to PT. PT does feel concerned about pt's thoughts that he might want to have surgery given his cardiac history, decreased cognition and self-care (overeating sweets and then passing out for many hours) and increased body mass. Increasing his overall activity with stepper at gym and then the pool may be helpful but unsure if pt will do. Physical Therapy Plan Frequency and Duration Frequency of Treatment 2x/Week Duration of Treatment 4 weeks Plan of Care Start Date 06/02/20 Plan of Care End Date 07/01/20 Therapeutic Interventions Therapeutic Interventions Balance Training,Canalithic Repositioning,Gait Training, Home Exercise Program,Joint Mobilizations,Manual Therapy, Neuromuscular Re-education, Patient/Caregiver Education, Self-Care/Home Management, Sensory Integration,Soft Tissue Mobilization,Taping, Therapeutic Activities, Therapeutic Exercises, Vestibular Rehabilitation Modalities Cold Pack/Ice Massage,Electric Stimulation,Hot Packs, Ultrasound Other Referrals/Consults Referrals/Consults Recommended Follow-up with dietition/ matrix repairer re: DM, diet, cognitive screen given medical issues and memory trouble Next Visit Focus/Plan Next Note Type Treatment Note Next Visit Plan Progress balance exercises ( Romberg findings under goals and progress Romberg EC). Assess response and continue to review HEP strengthening and flexibility, TA / hip strengthening
--- NOTE | 2020-06-02 11:12 | PT.OPPOC ---
Physical, Occupational & Speech Therapy At [facility] Current Diagnoses Unilateral post-traumatic osteoarthritis, right hip (06/02/20) Spondylolisthesis, lumbar region (06/02/20) Trochanteric bursitis, right hip (06/02/20) Visit Care Team Role Provider Type Matt Medina MD Primary Care Provider Physician Specialty: Internal Medicine Address: [address] [place] [address], [address], [address] Email: [email or web address] Sarah Osei MD Attending Provider Physician Referring Provider Specialty: Orthopedic Surgery Address: [address] [place] [address], [id number] Email: [email or web address] Plan Of Care PT-OP-T Assessment and Plan Start: 04/18/20 13:34 Freq: Status: Active Protocol: Document 06/02/20 10:32 MB (Rec: 06/02/20 11:11 MB [id number]) Physical Therapy Assessment Goals 5 Pen[facility]iary Goal (LTG) Pt will present with improved left hip flexion strength to 5 /5 to improve sit to stands by 07/01/20. 06/02/20: Left hip flexion in sitting is 4/5, right is 5/5-- this is improvement since evaluation. LTG Duration 4 weeks Four Watershed Tender Goal (LTG) Pt marivel present WNLs on a standardized balance test to decrease fall risk by 07/01/20. 06/02/20: Romberg in // bars with EO at least 30 sec; with EC, LOB to the left after 4 sec. BP and HR in LUE 157/88, 92. Pt had performed sit to stands before balance testing. LTG Duration 4 weeks Three Impairment LE score 34/80 Penitentiary Goal (LTG) Pt will present with an improved LEF score to reflect no more than 30% impairment to improve mobility and gait by 06/17/20. LTG Duration Discharge this goal as pt presents with some cognitive impairment Two Watershed Tender Goal (LTG) Pt will perform progressive HEP with I including pelvic realignment, flexibility, balance, gait and strengthening exercises to improve overall functional strength by 07/01/20. 06/02/20: Pt states that he is not performing the stretches at home that PT has given him. 05/31/20: stretches: HS, hip flex, QL, LS; HEP squats, seated hip abd TB & hip add isometric, TS rotation AROM, lateral side bend. LTG Duration 4 weeks One Watershed Tender Goal (LTG) Pt will perform at least 10 reps sit to stand without UE support in 30 sec to improve functional strength and decrease fall risk with transfers by 07/01/20. 06/02/20: 6 reps in 30 sec and pt tends to not stand all the way up but remain flexed at hips LTG Duration 4 weeks Assessment Summary Assessment Pt has progressed towards hip flexion strength goal since starting PT. He presents with balance impairment and is not performing his home PT exercises. Sit to stands are difficult but pt performs today. D/cd LEF score d/t cognitive impairments. Pt states that he is not performing PT exercises at home because they are more stretches and he would rather get into squats. Overall, his posture and tightness, carryover and self-awareness make activities like squats more problematic than helpful. Unsure of pt's buy in and compliance with PT education and training and these are barriers to PT. Pt reports overall lower energy makes him less motivated to do things at home. He has had some higher BP/fluctuating BP and reports of dizziness at home. Overall, pt's sedentary lifestyle, increased body mass , stenosis and metabolic changes (DM) as well as decreased compliance with PT at home are barriers to PT. Will con't PT efforts over the month and monitor response/ compliance to PT. PT does feel concerned about pt's thoughts that he might want to have surgery given his cardiac history, decreased cognition and self-care (overeating sweets and then passing out for many hours) and increased body mass. Increasing his overall activity with stepper at gym and then the pool may be helpful but unsure if pt will do. Physical Therapy Plan Frequency and Duration Frequency of Treatment 2x/Week Duration of Treatment 4 weeks Plan of Care Start Date 06/02/20 Plan of Care End Date 07/01/20 Therapeutic Interventions Therapeutic Interventions Balance Training,Canalithic Repositioning,Gait Training, Home Exercise Program,Joint Mobilizations,Manual Therapy, Neuromuscular Re-education, Patient/Caregiver Education, Self-Care/Home Management, Sensory Integration,Soft Tissue Mobilization,Taping, Therapeutic Activities, Therapeutic Exercises, Vestibular Rehabilitation Modalities Cold Pack/Ice Massage,Electric Stimulation,Hot Packs, Ultrasound Other Referrals/Consults Referrals/Consults Recommended Follow-up with dietition/ dock worker re: DM, diet, cognitive screen given medical issues and memory trouble Next Visit Focus/Plan Next Note Type Treatment Note Next Visit Plan Progress balance exercises ( Romberg findings under goals / and progress Romberg EC). Assess response and continue to review HEP strengthening and flexibility, TA / hip strengthening Plan of Care Dates Plan of Care Start Date 06/02/20 Plan of Care End Date 07/01/20 Electronically Signed by: Macy Simpson, PT 06/02/20 1112 Please Sign and Return: I have reviewed this Plan of Care and certify that the skilled therapy services above are required to meet the patient?s needs. Physician Signature Date Printed Name and Credentials Clinical Instructor Signature Printed Name and Credentials
--- NOTE | 2020-06-08 07:24 | PT-OP ANOTE ---
PT notes that pt was in the ED yesterday after a fall on the golf course and hitting the back of his head. Lumbar and head CTs were negative. PT calls pt and speaks with who states that pt has a bump on the back of his head. PT has been concerned about his BP and blood sugar and safety. PT ed that pt needs to return to Dr. Medina before returning to PT. She understands this and will cancel today's appointment.
--- NOTE | 2020-06-09 12:10 | PT.OPDS ---
Current Diagnoses Unilateral post-traumatic osteoarthritis, right hip (06/02/20) Spondylolisthesis, lumbar region (06/02/20) Trochanteric bursitis, right hip (06/02/20) Visit Care Team Role Provider Type Matt Medina MD Primary Care Provider Physician Specialty: Internal Medicine Address: [address] [place] [address], [address], [place], [address] Email: [email or web address] Sarah Osei MD Attending Provider Physician Referring Provider Specialty: Orthopedic Surgery Address: [address] [place] [address], [id number] Email: [email or web address] Visit Number Visit Number 10 Discharge Summary PT-OP-B Current Condition Start: 04/18/20 13:34 Freq: Status: Active Protocol: Document 04/19/20 09:48 MB (Rec: 04/19/20 10:06 MB [id number]) Current Condition History of Current Condition Onset Date 6-9 months Current Complaints Imbalance and pain in the back of his legs that limits his mobility History of Current Condition Pt reports that he had a lumbar injection 6 months ago and then he had a pain in the back of his buttocks and legs. Pt saw Dr. Osei and she reported that pt needs exercises. He has a history of injections in the right hip 2 years ago. He was told he did not yet need a hip replacement. He rates pain as 5/10 in the back of both legs. PMH includes spinal stenosis, lumbar spondylolisthesis, right trochanteric bursitis, essential hypertension, polymyalgia rheumatica, PT in the past and pt cannot remember what for and what helped, BPH with urinary obstruction and surgery, CAD, DM, PVD Pt reports imbalance and constant hissing in his ears. He is waiting for an appointment. He reports dizziness that is random. Looking up at the ceiling is problematic. Pt reports falls with last fall last year. This occurred when getting OOB and the EMT had to get him up and brought him to the ED. He had another previous fall in a parking lot when he was changing his shoes. He fell to the side and hit his head. He did not go to the hospital. He has a straight cane that he occ uses. Pt lives at home with his . There are a couple of steps getting into the house and he has a hand rail. He drives himself. Pt reports that the pain in the back of his legs limits him walking more than a block. He has been sitting around the house eating and has been putting on weight. Pt denies sensory changes in his legs. He states that his feet are not in the best shape. He had to get velcro for his shoes because he could not reach sufficiently and had trouble bending over for a while d/t dizziness. Prior Treatments and Tests PT, spinal and right hip injections Treatment Goals Patient/Caregiver Goals To decrease the pain and increase mobility PT-OP-C Subjective Start: 04/18/20 13:34 Freq: Status: Active Protocol: Document 06/02/20 10:32 MB (Rec: 06/02/20 11:11 MB [id number]) OP-PT Subjective Patient Comments Patient Comments Pt had a follow-up with Dr. Osei yesterday about his back . He states that his back isn' t feeling as good as it did right after he got his shot. Pt reports that his back was extra sore after working hard with PT earlier in the week. He is not doing the exercises PT gave him. He states they are stretching and he likes to get into squats. PT-OP-D Balance Start: 04/18/20 13:34 Freq: Status: Active Protocol: Document 04/19/20 09:48 MB (Rec: 04/19/20 11:19 MB [id number]) OP-PT Balance Assessment Sitting Balance Static Sitting Balance Ability Fair Dynamic Sitting Balance Ability Fair Sitting Balance Comments UE support static sitting Standing Balance Static Standing Balance Ability Fair Dynamic Standing Balance Ability Poor Standing Balance Comments CGA static standing after getting up from hook lying, positive orthostatics Mendez Fall Scale Copyright Permission PT-OP-G Mobility & Gait Start: 04/18/20 13:34 Freq: Status: Active Protocol: Document 04/19/20 09:48 MB (Rec: 04/19/20 11:19 MB [id number]) OP Mobility Evaluation Bed Mobility Rolling Min A to assist with right UE to move left side lying to sitting OP Gait Assessment Gait Gait Assistance Required: Independent Distance (Feet) 75 Able to Maintain Weight Bearing Status Yes During Gait Assistive Devices Assistive Device None Orthotic/Prosthetic Devices or Brace: No Gait Deviations General Gait Pattern Antalgic,Decreased Stride Length,Flexed Trunk,Wide Based Gait Factors Limiting Gait Function Factors Limiting Gait Function Limited Range of Motion,Pain, Poor Balance Comments Gait Comments Forward, flexed posture, decreased step-length and foot clearance, slow nirmal PT-OP-J Posture/Palpation/Skin Start: 04/18/20 13:34 Freq: Status: Active Protocol: Document 04/19/20 09:48 MB (Rec: 04/19/20 11:19 MB [id number]) Posture Evaluation Comments Posture Comments Pt standing, socks and no shoes: forward head and rounded shoulders, left tragus 3 in front of left AC joint, Dowager's hump, increased anterior tilt pelvis, flexed posture at hips, right shoulder higher than the left, left thoracic convexity, right iliac crest higher than the left. Pt reports increased B buttock and back across low back with upright posture, he prefers flexion pattern ( sitting) in setting of known stenosis and spondylolisthesis Skin Assessment Other Assessments Skin Assessment Comments Redness forehead. Pt reports skin reaction to antibiotics about a year ago and all his skin peeled and he was adm to hospital and was in the ICU PT-OP-K Range of Motion Start: 04/18/20 13:34 Freq: Status: Active Protocol: Document 04/19/20 09:48 MB (Rec: 04/19/20 11:19 MB [id number]) Cervical Spine Range of Motion Cervical Spine Active Comments Limited active cervical ROM all directions d/t postural and spinal changes Hip Goniometric Range of Motion Hip ROM Limitations Comments Passive SLR very limited, more on the left than the right: 40 deg and 50 deg and PT does not push to the point of back pain, only felt tension limitation and pt reports stretching sensation PT-OP-M Strength Start: 04/18/20 13:34 Freq: Status: Active Protocol: Document 04/19/20 09:48 MB (Rec: 04/19/20 11:19 MB [id number]) Hip Strength Hip Manual Muscle Testing Left Flexion (L2) 3+ Fair+ Abduction 4 Good Adduction 4 Good Comments Pt supine Right Flexion (L2) 5 Normal Abduction 4 Good Adduction 5 Normal Comments Pt supine Knee Strength Knee Manual Muscle Testing Left Flexion (S2) 4 Good Extension (L3) 5 Normal Comments Pt supine Right Flexion (S2) 4 Good Extension (L3) 5 Normal Comments Pt supine Ankle/Foot Strength Ankle and Foot Manual Muscle Testing Left Dorsiflexion (L4) 5 Normal Inversion 5 Normal Eversion (S1) 5 Normal Right Dorsiflexion (L4) 5 Normal Inversion 5 Normal Eversion (S1) 5 Normal Toe Strength Toe Manual Muscle Testing Left Great Toe Extension 4 Good Right Great Toe Extension 5 Normal PT-OP-T Assessment and Plan Start: 04/18/20 13:34 Freq: Status: Active Protocol: Document 06/09/20 12:09 MB (Rec: 06/09/20 12:10 MB [id number]) Physical Therapy Plan Discharge Physical Therapy Discharge Reasons Change in Medical Status Discharge Comments Pt calls to cancel all appointments after fall and seen in ED. had reported concussion to PT and she was going to have pt follow-up with his doctor. Will d/c PT.
== END 2020-06-10 07:59 | disposition home or self-care (01) ==
LOC: PHYS 10:30
PROVIDERS: PCP Internal Medicine; Referring Provider Orthopaedic Surgery; Visit Provider Orthopaedic Surgery
DX: M43.16 Spondylolisthesis, lumbar region (principal); M70.61 Trochanteric bursitis, right hip; M16.51 Unilateral post-traumatic osteoarthritis, right hip
CPT/HCPCS: 97110; 97116; 97140; 97162; 97535

== ENCOUNTER 2020-06-07 13:59 | Emergency (ER) | payer MEDICARE, OTHER, SELFPAY ==
[2018-07-31 15:48] VITALS: BMI 27.1
[2020-06-07] VITALS (11 sets, daily range): BP systolic 130–197; BP diastolic 66–94; PULSE 61–74; RESP 15; TEMP 36.4; O2SAT 93–98; BMI 30.5
--- NOTE | 2020-06-07 14:13 | DI.CT.S_ITS ---
PROCEDURE: CT HEAD/BRAIN WO CON INDICATIONS: fall, hit head, denies loss of consciousness, on blood thinners TECHNIQUE: Noncontrast 4.5 mm thick angled axial sections acquired from the foramen magnum to the vertex, with coronal and sagittal reformats. For radiation dose reduction, the following was used: automated exposure control, adjustment of mA and/or kV according to patient size. COMPARISON: [facility], CT, HEAD WITHOUT CONTRAST, 01/21/2017, 11:10. [facility], CT, CT HEAD/BRAIN WO CON, 05/06/2018, 18:23. FINDINGS: Image quality: Excellent. CSF spaces: Basal cisterns are patent. No extra-axial fluid collections. The ventricles are symmetric in size and shape. Brain: No intracranial bleeds or masses. There is cerebral volume loss for age, with resultant ventricular and sulcal prominence. There are periventricular and deep white matter chronic small vessel ischemic changes. There is intracranial internal carotid artery atherosclerosis. Skull and face: Calvarium and visualized facial bones appear intact, without suspicious lesions. Sinuses: Visualized sinuses and mastoids are clear. IMPRESSION: No acute intracranial hemorrhage is seen. No acute intracranial process is seen. Note is made of age-appropriate brain parenchymal volume loss and chronic small vessel ischemic changes. Dictated by: Sameer Urrutia M.D. on 06/07/2020 at 13:30 Approved by: Sameer Urrutia M.D. on 06/07/2020 at 13:31
--- NOTE | 2020-06-07 17:40 | ED_ITS ---
HPI - Fall General Chief Complaint: Fall Stated Complaint[place] Time Seen by Provider: 06/07/20 17:40 Source: patient Mode of arrival: Wheelchair Limitations: no limitations History of Present Illness HPI Narrative: 79-year-old male comes emergency department after a ground level fall x2 on the golf course today. Patient states he has chronic low back issues at the L3-4 region and has had injections into his back. He is unsure of the exact diagnosis. He states he will chronically get weakness or have increased pain when he is standing or walking for prolonged periods of time. He has not played golf in a long time and states today while he was standing and trying to walking he felt weaker in his legs and fell. He required some assistance got up and then fell backwards again on his back and struck his head. Patient does not think he got knocked out but he did not recall the incident and his friend told him he was very repetitive for about 20 or 30 minutes. Patient denies any hea dache currently. No neck pain, no upper back pain but he does have increased low back pain more acutely than his normal. He chronically has intermittent numbness and tingling in his lower extremities. He also chronically has increased weakness but does not appreciate worsening symptoms at this time. Has never had any urinary or bowel incontinence. He does not have any saddle anesthesia. Patient denies any chest pain or shortness of breath. He denies any nausea or vomiting he denies any new GI or urinary symptoms. Patient states he is on aspirin and Brilinta. Patient states he normally takes Advil for his back. He does not take any other stronger medications typically. He was able to ambulate after the incident but was uncomfortable sitting in the chairs in the waiting room. Related Data Home Medications Medication Instructions Recorded Confirmed aspirin 81 mg tablet,delayed 81 mg PO DAILY 09/09/18 05/09/20 release carvedilol 25 mg tablet 25 mg PO BID #60 tab 09/09/18 05/09/20 glipizide 10 mg tablet 10 mg PO DAILY tab 07/03/19 05/09/20 ticagrelor 90 mg tablet 90 mg PO BID 09/17/19 05/09/20 vitamin B complex 1 tab PO DAILY 09/24/19 05/09/20 valacyclovir 1 gram tablet 1,000 mg PO TID PRN tab 12/18/19 05/09/20 semaglutide 0.5 mg SUBCUT QWEEK 02/16/20 05/09/20 Previous Rx's Medication Instructions Recorded potassium chloride 20 mEq 20 meq PO DAILY #60 tab 09/21/19 tablet,extended release potassium citrate 10 meq PO TID #90 tab 10/05/19 sertraline 100 mg tablet 50 mg PO DAILY #90 tab 11/10/19 finasteride 5 mg tablet 5 mg PO DAILY #90 tab 02/04/20 famotidine 20 mg tablet 20 mg PO BID #180 tab 02/08/20 tamsulosin 0.4 mg capsule 0.4 mg PO BID #180 tab 03/07/20 hydrochlorothiazide 12.5 mg tablet 12.5 mg PO BID #180 tab 03/09/20 metformin 1,000 mg tablet 1,000 mg PO BID #180 tab 03/17/20 prednisone 1 mg tablet 1 mg PO DAILY #90 tab 03/28/20 prednisone 5 mg tablet 5 mg PO DAILY #90 tab 03/28/20 hydrocodone-acetaminophen 1 tab PO Q6H PRN #10 tab 06/07/20 Allergies Allergy/AdvReac Type Severity Reaction Status Date / Time clavulanic acid Allergy Severe Rash/Hives Verified 06/07/20 14:08 [From Augmentin] - internal reaction clopidogrel [From Plavix] Allergy Severe Hives. 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) Depression Diabetes Essential hypertension Family history of prostate cancer Femur fracture (1965) Fracture (1951) Gilbert's syndrome Hayfever (1999) Hepatitis A (1963) History of nephrolithiasis HLD (hyperlipidemia) Incomplete bladder emptying Kidney stones Measles Melanoma (1987) Mixed hyperlipidemia Mumps Peripheral vascular disease (2009) Polymyalgia rheumatica (08/30/15) Primary osteoarthritis of both hips (08/30/15) Shoulder pain (2011) Spinal stenosis Tinnitus Type 2 diabetes mellitus without complication (06/20/15) Urge urinary incontinence Surgical History History of appendectomy History of coronary artery stent placement History of orthopedic surgery (1965) Status post appendectomy (1956) Status post coronary artery bypass graft (1995) Family History Father Colon cancer Prostate enlargement Bladder cancer History of hip surgery Pneumonia History of prostate surgery Mother Diabetes mellitus Heart disease Hypertension High cholesterol Osteoporosis History of cataract surgery H/O heart bypass surgery Arthritis Grandfather Arthritis Prostate cancer Colon cancer Deaf Legally blind Grandmother Diabetes mellitus Hypertension Angina pectoris Heart disease Osteoporosis Social History marital status: number of children: 0 household members: spouse lives independently: Yes caregiver/support person: No housing: house pets and animals: Yes education level: other occupational status: other 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 HEAD: No evidence of trauma, no raccoon/Bahena sign. NECK: Nontender, painless range of motion, trachea midline Negative Nexus criteria, there is no mid line tenderness, distracting injury, altered mental status, neuro deficit, recent EtOH. EYES: PERRLA, EOMI ENT: External inspection normal, trachea is midline, TM's are normal no hemotypanum, Nares are clear, no septal hematoma, no dental or oral injury, airway is normal and with normal occlusion, No bony tenderness RESP: Chest is nontender and has symmetric movement, no ecchymosis, breath sounds are normal no crackles, wheezes or rales CVS: Heart sounds are normal, no murmur noted, No JVD. ABG/GI: Nontender, soft, normal bowel sounds, no distention, no organomegaly, pelvic rock is negative NEURO: Oriented AOx3, neuro is grossly intact, sensation and motor is normal all 4 extremities moving, cranial nerves II through XII are intact, GCS is 15 PSYCH: Normal mood and affect SKIN: Intact, warm and dry, no crepitus and without decubitus BACK: No CVA tenderness, vertebral tenderness at L3/4 range with palpation but patient states mild , no step-off's, no crepitus, patient able to roll to side with miminal EXT: Atraumatic, hips are nontender, no pedal edema, normal color and temperature, normal range of motion of extremities with normal tendon exam, patient has no increased pain with straight leg raise bilaterally, patient able to do heel-shoemaker bilaterally with minimal issues. 2+ pulses in all four extremities Initial Vital Signs Initial Vital Signs: Vital Signs Temperature 97.6 F 06/07/20 14:06 Pulse Rate 74 06/07/20 14:06 Respiratory Rate 15 06/07/20 14:06 Blood Pressure 137/66 06/07/20 14:06 Pulse Oximetry 96 06/07/20 14:06 Course Orders Ordered: ED Orders 06/07/20 14:13 CT head/brain wo con Stat 06/07/20 17:57 CT lumbar spine wo con Stat Discontinued Medications Hydrocodone Bitart/Acetaminophen (Hydrocodone/Acet 5/325 Tablet) 1 tab PO NOW ONE Stop: 06/07/20 17:58 Last Admin: 06/07/20 18:15 Dose: 1 tab Documented by: TAVO Vital Signs Vital signs: Vital Signs - 8 hr 06/07/20 14:06 06/07/20 16:06 06/07/20 16:30 Temperature 97.6 F Pulse Rate 74 72 66 Respiratory Rate 15 Blood Pressure 137/66 156/74 H Pulse Oximetry 96 97 93 06/07/20 17:00 06/07/20 17:30 06/07/20 17:31 Temperature Pulse Rate 72 67 67 Respiratory Rate Blood Pressure 130/68 150/72 H Pulse Oximetry 93 93 94 06/07/20 18:00 06/07/20 18:01 06/07/20 18:17 Temperature Pulse Rate 66 65 64 Respiratory Rate Blood Pressure 184/88 H 197/94 H Pulse Oximetry 96 96 98 06/07/20 18:30 06/07/20 18:31 Temperature Pulse Rate 61 62 Respiratory Rate Blood Pressure 178/86 H Pulse Oximetry 96 96 MDM - Fall Imaging Data CT scan - head: Radiologist's Impression: [place] [id number] [place] [address] [id number] Scan ReportSigned Patient: Kris Barbour RMR#: [id number]: [id number]/Sex: 79 / MDate of Service: 06/07/20Loc: EDAccession Number: [id number] Procedure: CT head/brain wo con Ordering Provider: Guerline Holden D.O. PROCEDURE: CT HEAD/BRAIN WO CON INDICATIONS: fall, hit head, denies loss of consciousness, on blood thinners TECHNIQUE: Noncontrast 4.5 mm thick angled axial sections acquired from the foramen magnum to the vertex, with coronal and sagittal reformats. For radiation dose reduction, the following was used: automated exposure control, adjustment of mA and/or kV according to patient size. COMPARISON: [facility], CT, HEAD WITHOUT CONTRAST, 01/21/2017, 11:10. [facility], CT, CT HEAD/BRAIN WO CON, 05/06/2018, 18:23. FINDINGS: Image quality: Excellent. CSF spaces: Basal cisterns are patent. No extra-axial fluid collections. The ventricles are symmetric in size and shape. Brain: No intracranial bleeds or masses. There is cerebral volume loss for age, with resultant ventricular and sulcal prominence. There are periventricular and deep white matter chronic small vessel ischemic changes. There is intracranial internal carotid artery atherosclerosis. Skull and face: Calvarium and visualized facial bones appear intact, without suspicious lesions. Sinuses: Visualized sinuses and mastoids are clear. IMPRESSION: No acute intracranial hemorrhage is seen. No acute intracranial process is seen. Note is made of age-appropriate brain parenchymal volume loss and chronic small vessel ischemic changes. Dictated by: Sameer Urrutia M.D. on 06/07/2020 at 13:30 Approved by: Sameer Urrutia M.D. on 06/07/2020 at 13:[address]: Radiologist's Impression: [facility] [place] [id number] Scan ReportSigned Patient: Kris Barbour RMR#: [id number]: [id number]/Sex: 79 / MDate of Service: 06/07/20Loc: EDAccession Number: [id number] Procedure: CT lumbar spine wo con Ordering Provider: Guerline Holden D.O. PROCEDURE: CT LUMBAR SPINE WO CON INDICATIONS: L3/4 hx pain, s/p fall acute on chronic pain TECHNIQUE: Noncontrast 3 mm thick sections acquired from the T12 level to the sacrum. Sagittal and coronal reformats were constructed. For radiation dose reduction, the following was used: automated exposure control. COMPARISON: [facility], CT, CT ABDOMEN PELVIS W CON, 09/15/2019, 20:06. [facility] [place], CR, XR LUMBAR SPINE 2 OR 3 VIEWS, 03/17/2020, 15:32. [facility], MR, MR LUMBAR SPINE WO CON, 06/09/2019, 11:36. FINDINGS: Image quality: Excellent. Bones: Trace anterolisthesis L4 on five. Otherwise normal bony alignment. No acute vertebral body compression fractures. No suspicious lytic or blastic bony lesions. No pars defects. T12-L1: Normal L1-L2: Normal L2-L3: Mild circumferential disc bulge. L3-L4: Mild circumferential disc bulge. Moderate epidural lipomatosis and bilateral facet arthropathy contribute to moderate central canal narrowing. L4-L5: Broad-based posterior disc bulge, epidural lipomatosis and ligamentum flavum hypertrophy contribute to severe central canal stenosis, though similar compared to prior MRI. No significant change in degree of foraminal stenosis, moderate bilaterally. L5-S1: Mild broad-based posterior disc bulge and moderate disc height loss, slightly progressed compared to the prior study. Moderate bilateral foraminal narrowing is stable. There is epidural lipomatosis. Soft tissues: No retroperitoneal masses or hematomas. Visualized aorta is normal in caliber. Mild calcification. IMPRESSION: 1. No acute fractures or significant disc changes in the lumbar spine. 2. Multilevel, fairly stable degenerative changes from L3-4 through L5-S1. Dictated by: Eunice De La Cruz M.D. on 06/07/2020 at 17:23 Approved by: Eunice De La Cruz M.D. on 06/07/2020 at 17:32 MDM Narrative Medical decision making narrative: This is a 71-year-old male with possible loss of consciousness but positive repetitive questioning and amnesia status post fall and striking his head on anticoagulation. For patient was a mechanical fall. This was witnessed with friend who was at bedside. Patient is actually able to get up and ambulate after. Patient also has some acute on chronic low back pain. He has been following with Orthopedic surgery, he has minimal tenderness with palpation but does have increased pain from his typical was quite uncomfortable while seated in the waiting room. He has been more comfortable while lying on a bed with a ice pack underneath him. Plan for repeat imaging of his back which showed no acute changes. Patient does not have any red flag symptoms on evaluation. Head CT is negative. Return precautions with short course of oral pain medication. Patients family was at bedside for discussion regarding discharge. Discharge Plan Departure Patient Disposition: Home Clinical Impression: Fall from ground level, Concussion, Lumbar back pain Instructions: DI for Concussion Activity Restrictions/Additional Instructions: Follow up with your physician in the next week for recheck. You may continue your home medications as prescribed. Take medication as prescribed this medication can make you sleepy do not drive, perform hazardous activities or make any major decisions while taking it. Medication will also constipation make sure you taking a stool softener such as Colace or MiraLax until stools are soft and regular unless you are not having diarrhea like stools. Prescription to [facility] in [place]. Please return for fevers, severe headaches, altered mental status, new numbness, weakness or rapidly worsening back or extremity pain, persistent vomiting, new chest pain or shortness of breath or other new or concerning symptoms. Prescriptions: New hydrocodone-acetaminophen 5-325 mg tablet 1 tab PO Q6H PRN (Reason: pain) Qty: 10 RF: 0 No Action Brilinta 90 mg tablet 90 mg PO BID RF: 0 potassium chloride 20 mEq tablet extended release 20 meq PO DAILY Qty: 60 RF: 4 sertraline 100 mg tablet 50 mg PO DAILY Qty: 90 RF: 3 famotidine 20 mg tablet 20 mg PO BID Qty: 180 RF: 3 tamsulosin [Flomax] 0.4 mg capsule 0.4 mg PO BID Qty: 180 RF: 1 hydrochlorothiazide 12.5 mg tablet 12.5 mg PO BID Qty: 180 RF: 1 metformin 1,000 mg tablet 1,000 mg PO BID Qty: 180 RF: 1 prednisone 5 mg tablet 5 mg PO DAILY Qty: 90 RF: 0 prednisone 1 mg tablet 1 mg PO DAILY Qty: 90 RF: 4 aspirin [Adult Low Dose Aspirin] 81 mg tablet,delayed release (DR/EC) 81 mg PO DAILY RF: 0 valacyclovir 1 gram tablet 1,000 mg PO TID PRNRF: 0 carvedilol 25 mg tablet 25 mg PO BID Qty: 60 RF: 0 glipizide 10 mg tablet 10 mg PO DAILY RF: 0 Ozempic 0.25 mg or 0.5 mg(2 mg/1.5 mL) pen injector 0.5 mg SUBCUT QWEEK RF: 0 potassium citrate 10 mEq (1,080 mg) tablet extended release 10 meq PO TID Qty: 90 RF: 0 vitamin B complex [B Complex-Vitamin B12] Tablet 1 tab PO DAILY RF: 0 finasteride 5 mg tablet 5 mg PO DAILY Qty: 90 RF: 3 Referrals: Matt Mednia MD [Primary Care Provider] -
--- NOTE | 2020-06-07 17:57 | DI.CT.S_ITS ---
PROCEDURE: CT LUMBAR SPINE WO CON INDICATIONS: L3/4 hx pain, s/p fall acute on chronic pain TECHNIQUE: Noncontrast 3 mm thick sections acquired from the T12 level to the sacrum. Sagittal and coronal reformats were constructed. For radiation dose reduction, the following was used: automated exposure control. COMPARISON: [facility], CT, CT ABDOMEN PELVIS W CON, 09/15/2019, 20:06. [facility] [place], CR, XR LUMBAR SPINE 2 OR 3 VIEWS, 03/17/2020, 15:32. [facility], MR, MR LUMBAR SPINE WO CON, 06/09/2019, 11:36. FINDINGS: Image quality: Excellent. Bones: Trace anterolisthesis L4 on five. Otherwise normal bony alignment. No acute vertebral body compression fractures. No suspicious lytic or blastic bony lesions. No pars defects. T12-L1: Normal L1-L2: Normal L2-L3: Mild circumferential disc bulge. L3-L4: Mild circumferential disc bulge. Moderate epidural lipomatosis and bilateral facet arthropathy contribute to moderate central canal narrowing. L4-L5: Broad-based posterior disc bulge, epidural lipomatosis and ligamentum flavum hypertrophy contribute to severe central canal stenosis, though similar compared to prior MRI. No significant change in degree of foraminal stenosis, moderate bilaterally. L5-S1: Mild broad-based posterior disc bulge and moderate disc height loss, slightly progressed compared to the prior study. Moderate bilateral foraminal narrowing is stable. There is epidural lipomatosis. Soft tissues: No retroperitoneal masses or hematomas. Visualized aorta is normal in caliber. Mild calcification. IMPRESSION: 1. No acute fractures or significant disc changes in the lumbar spine. 2. Multilevel, fairly stable degenerative changes from L3-4 through L5-S1. Dictated by: Eunice De La Cruz M.D. on 06/07/2020 at 17:23 Approved by: Eunice De La Cruz M.D. on 06/07/2020 at 17:32
[2020-06-07] MEDS: HYDROCODONE/ACET 5/325 TABLET 1 TAB PO (18:15)
== END 2020-06-07 18:57 | disposition home or self-care (01) ==
PROVIDERS: Emergency Provider Emergency Medicine; PCP Internal Medicine
DX: S06.0X9A Concussion with loss of consciousness of unspecified duration, initial encounter (principal); M54.5 Low back pain; W18.30XA Fall on same level, unspecified, initial encounter
CPT/HCPCS: 70450; 72131; 99284

== ENCOUNTER 2020-08-09 13:00 | Outpatient (RCR) | payer MEDICARE, OTHER, SELFPAY ==
[2018-07-31 15:48] VITALS: BMI 27.1
[2020-08-02 15:15] VITALS: BP 160/88
--- NOTE | 2020-08-02 17:08 | PT.OIE ---
Current Diagnoses Difficulty in walking, not elsewhere classified (08/02/20) Unspecified abnormalities of gait and mobility (08/02/20) Past Medical History (Last Reviewed 06/07/20 @ 18:03 by Guerline Holden DO) Benign prostatic hyperplasia with urinary obstruction (03/25/15) BPH w urinary obs/LUTS Chicken pox Chronic back pain (1989) Coronary artery disease involving [place] coronary artery of [place] heart without angina pectoris (1995) Depression Diabetes Essential hypertension Family history of prostate cancer Femur fracture (1965) Fracture (1951) Gilbert's syndrome Hayfever (1999) Hepatitis A (1963) History of nephrolithiasis HLD (hyperlipidemia) Incomplete bladder emptying Kidney stones Measles Melanoma (1987) Mixed hyperlipidemia Mumps Peripheral vascular disease (2009) Polymyalgia rheumatica (08/30/15) Primary osteoarthritis of both hips (08/30/15) Shoulder pain (2011) Spinal stenosis Tinnitus Type 2 diabetes mellitus without complication (06/20/15) Urge urinary incontinence Past Surgical History (Last Reviewed 06/07/20 @ 18:03 by Guerline Holden DO) History of appendectomy History of coronary artery stent placement History of orthopedic surgery (1965) Status post appendectomy (1956) Status post coronary artery bypass graft (1995) Visit Care Team Role Provider Type Matt Medina MD Attending Provider Physician Family Provider Primary Care Provider Referring Provider Specialty: Internal Medicine Address: [address] [place] [address], [address], [facility] Email: [email or web address] Physical Therapy Initial Evaluation PT-OP-A Visit Information Start: 08/02/20 12:41 Freq: Status: Active Protocol: Document 08/02/20 15:15 AW (Rec: 08/03/20 12:44 AW [email or web address]) Out-Patient Physical Therapy Visit Information Visit Information Visit Type Initial Evaluation Visit Start Time 14:30 Visit Stop Time 15:15 Total Visit Minutes 45 Visit Number 1 Number of FISCAL SPECIALIST Visits 0 Evaluation Information Evaluation Date 08/02/20 PT-OP-B Current Condition Start: 08/02/20 12:41 Freq: Status: Active Protocol: Document 08/02/20 15:15 AW (Rec: 08/02/20 12:53 AW [id number]) Current Condition History of Current Condition Onset Date a year Current Complaints frequent falls History of Current Condition Pt states he has fallen numerous times in the past year and has hit his head at least one of those times. He was diagnosed with concussion but intracranial bleed was ruled out. He notes his diabetes is poorly controlled and he has gained a lot of weight over the past year, correlating with Covid isolation. He does not typically use any assistive device but will occasionally use a cane or walking sticks. Pt enjoys golf but his most recent fall was on the golf course and he has not been back. Pt reports back pain which he attributes to arthritis. He has been seen by orthopedics and was treated with spine and hip injections which he found helped minimally and without persistent effect. His last spinal injection occured about a week before his last fall which was on June 05. Though he has not fallen since that time, he endorses several close calls, especially on uneven terrain. Pt has history of polymyalgia rheumatica and is currently on a prednisone taper. Pt self-reports memory impairment. Prior Treatments and Tests Injections by ortho as above. PT Developmental History Developmental History PMH includes spinal stenosis, lumbar spondylolisthesis, right trochanteric bursitis, essential hypertension, polymyalgia rheumatica, PT in the past and pt cannot remember what for and what helped, BPH with urinary obstruction and surgery, CAD, DM, PVD Treatment Goals Patient/Caregiver Goals Gain LE strength. Improve balance. Return to golf using golf cart. Would like to be able to play 9 holes. PT-OP-C Subjective Start: 08/02/20 12:41 Freq: Status: Active Protocol: Document 08/02/20 15:15 AW (Rec: 08/03/20 12:44 AW [id number]) OP-PT Subjective Patient Comments Patient Comments See history of current condition Patient Questionnaires Lower Extremity Functional Scale LEFS Score 42 LEFS Impairment 40 to 59% Impaired (Score 32- 47) OP-PT Pain Assessment Pain Assessment Grid Paper Pain Assessment Grid Completed Yes: scanned to EMR PT-OP-D Balance Start: 08/02/20 12:41 Freq: Status: Active Protocol: Document 08/02/20 15:15 AW (Rec: 08/03/20 12:51 AW [id number]) OP-PT Balance Assessment Sitting Balance Static Sitting Balance Ability Good Dynamic Sitting Balance Ability Fair Sitting Balance Comments UE support require for reaching outside BRADLEY Standing Balance Static Standing Balance Ability Fair Dynamic Standing Balance Ability Poor Device Used no AD Standing Balance Comments No dizziness or lightheadedness reported but unsteady in initial standing. Mendez Fall Scale Copyright Permission PT-OP-G Mobility & Gait Start: 08/02/20 12:41 Freq: Status: Active Protocol: Document 08/02/20 15:15 AW (Rec: 08/03/20 12:51 AW [email or web address]) OP Mobility Evaluation Bed Mobility Supine to and from Sit min assist with RUE assist for supine to sit OP Gait Assessment Gait Gait Assistance Required: Independent Distance (Feet) 100 Assistive Devices Assistive Device None Orthotic/Prosthetic Devices or Brace: No Gait Deviations General Gait Pattern Antalgic,Decreased Stride Length,Decreased Feet Clearance,Flexed Trunk,Wide Based Gait Factors Limiting Gait Function Factors Limiting Gait Function Limited Range of Motion,Pain, Poor Balance Comments Gait Comments Forward and flexed posture in gait, slow nirmal. PT-OP-H Neuro Start: 08/02/20 12:41 Freq: Status: Active Protocol: Document 08/02/20 15:15 AW (Rec: 08/03/20 12:51 AW [email or web address]) Vital Signs Blood Pressure Sitting Blood Pressure (90/60-120/80 mmHg) 160/88 H Blood Pressure Source Manual Cuff,Right Upper Extremity PT-OP-J Posture/Palpation/Skin Start: 08/02/20 12:41 Freq: Status: Active Protocol: Document 08/02/20 15:15 AW (Rec: 08/03/20 13:00 AW [email or web address]) Posture Evaluation Comments Posture Comments Pt standing with socks/no shoes: head is forward and shoulders are rounded bilaterally. Increased thoracic kyphosis/dowager's hump. Pt stands with increased anterior pelvic tilt, flexed trunk - mostly at hips - due to reported back pain with increased extension. PT-OP-K Range of Motion Start: 08/02/20 12:41 Freq: Status: Active Protocol: Document 08/02/20 15:15 AW (Rec: 08/03/20 13:00 AW [email or web address]) Cervical Spine Range of Motion Cervical Spine Active Comments Limited globally secondary to habitual posture and spinal changes. Hip Goniometric Range of Motion Hip ROM Limitations Comments Passive SLR (90/90) lacking ~ 20-30 degrees knee extension bilaterally. Positive scour test bilaterally. Rotation limited in B LE with internal more significantly restricted. PT-OP-M Strength Start: 08/02/20 12:41 Freq: Status: Active Protocol: Document 08/02/20 15:15 AW (Rec: 08/03/20 13:00 AW [email or web address]) Hip Strength Hip Manual Muscle Testing Left Flexion (L2) 4 Good Abduction 4 Good Adduction 4 Good Comments Pt supine Right Flexion (L2) 4+ Good+ Extension (S1) 4 Good Abduction 4 Good Comments Pt supine Knee Strength Knee Manual Muscle Testing Left Flexion (S2) 4 Good Extension (L3) 4+ Good+ Right Flexion (S2) 4 Good Extension (L3) 4+ Good+ Ankle/Foot Strength Ankle and Foot Manual Muscle Testing bilateral Dorsiflexion (L4) 4+ Good+ Plantarflexion (S1) 4 Good Inversion 4+ Good+ Eversion (S1) 4+ Good+ PT-OP-T Assessment and Plan Start: 08/02/20 12:41 Freq: Status: Active Protocol: Document 08/02/20 15:15 AW (Rec: 08/03/20 15:58 AW [email or web address]) Physical Therapy Assessment Rehab Potential Rehabilitation Potential Fair Evaluation Complexity Number of Personal Factors/Comorbidities 1-2 Number of Body Systems Impaired 3 Clinical Presentation at Evaluation Evolving Impairments Impairments Activity Tolerance,Balance, Functional Activities, Functional Mobility,Gait,Pain, Posture,ROM,Sensation,Strength Other Impairments Personal factors include orthostatic hypotension exacerbated by poor hydration, poor memory, history of falls . Body systems include metabolic (DM), cardiopulmonary, and musculoskeletal. Other Concerns Fall Risk yes Goals Three Impairment balance Hall Manager Goal (LTG) Pt will perform within norms for age-matched peers on a standardized dynamic balance assessment to decrease falls risk. LTG Duration 12 weeks - 10/25/20 Two Impairment lacks HEP Short Term Goal (STG) Pt will be indpendent with HEP for support of therapy services provided in clinic. STG Duration 4 weeks - 08/30/20 One Impairment LE strength Hall Manager Goal (LTG) Pt will complete at least 10 reps sit to stand without UE support in 30 seconds to demonstrate improved functional strength and safer transfers. LTG Duration 12 weeks - 10/25/20 Assessment Summary Assessment Pt is a 80 yo man presenting to outpatient physical therapy with complaints of imbalance, falls, and back pain. PMH is significant for spinal stenosis and spondylolisthesis , poorly-controlled diabletes, CAD/stenting, and orthostatic hypotension. Pt reports increase in body mass over the past one year which correlates with pandemic conditions. His increase in falls frequency is correlated with same. He will benefit from PT for flexibility, strengthening, and balance work to reduce his overall falls risk, guard against risks associated with immobility, and improve his ability to participate in leisure activities such as golfing. Physical Therapy Plan Frequency and Duration Frequency of Treatment 2x/Week Duration of Treatment 12 weeks Plan of Care Start Date 08/02/20 Plan of Care End Date 10/25/20 Therapeutic Interventions Therapeutic Interventions Balance Training,Gait Training ,Home Exercise Program,Joint Mobilizations,Manual Therapy, Neuromuscular Re-education, Patient/Caregiver Education, Self-Care/Home Management, Sensory Integration,Soft Tissue Mobilization,Taping, Therapeutic Activities, Therapeutic Exercises Modalities Cold Pack/Ice Massage,Electric Stimulation,Hot Packs Next Visit Focus/Plan Next Note Type Treatment Note Next Visit Plan Initiate hip strengthening in supine. Initiate standing balance activities.
--- NOTE | 2020-08-02 17:09 | PT.OPPOC ---
Physical, Occupational & Speech Therapy At [facility] Current Diagnoses Difficulty in walking, not elsewhere classified (08/02/20) Unspecified abnormalities of gait and mobility (08/02/20) Visit Care Team Role Provider Type Matt Medina MD Attending Provider Physician Family Provider Primary Care Provider Referring Provider Specialty: Internal Medicine Address: [address] [place] [address], [address], [facility] Email: [email or web address] Plan Of Care PT-OP-T Assessment and Plan Start: 08/02/20 12:41 Freq: Status: Active Protocol: Document 08/02/20 15:15 AW (Rec: 08/03/20 15:58 AW [email or web address]) Physical Therapy Assessment Rehab Potential Rehabilitation Potential Fair Evaluation Complexity Number of Personal Factors/Comorbidities 1-2 Number of Body Systems Impaired 3 Clinical Presentation at Evaluation Evolving Impairments Impairments Activity Tolerance,Balance, Functional Activities, Functional Mobility,Gait,Pain, Posture,ROM,Sensation,Strength Other Impairments Personal factors include orthostatic hypotension exacerbated by poor hydration, poor memory, history of falls . Body systems include metabolic (DM), cardiopulmonary, and musculoskeletal. Other Concerns Fall Risk yes Goals Three Impairment balance Placement Coordinator Goal (LTG) Pt will perform within norms for age-matched peers on a standardized dynamic balance assessment to decrease falls risk. LTG Duration 12 weeks - 10/25/20 Two Impairment lacks HEP Short Term Goal (STG) Pt will be indpendent with HEP for support of therapy services provided in clinic. STG Duration 4 weeks - 08/30/20 One Impairment LE strength Mcfp Goal (LTG) Pt will complete at least 10 reps sit to stand without UE support in 30 seconds to demonstrate improved functional strength and safer transfers. LTG Duration 12 weeks - 10/25/20 Assessment Summary Assessment Pt is a 80 yo man presenting to outpatient physical therapy with complaints of imbalance, falls, and back pain. PMH is significant for spinal stenosis and spondylolisthesis , poorly-controlled diabletes, CAD/stenting, and orthostatic hypotension. Pt reports increase in body mass over the past one year which correlates with pandemic conditions. His increase in falls frequency is correlated with same. He will benefit from PT for flexibility, strengthening, and balance work to reduce his overall falls risk, guard against risks associated with immobility, and improve his ability to participate in leisure activities such as golfing. Physical Therapy Plan Frequency and Duration Frequency of Treatment 2x/Week Duration of Treatment 12 weeks Plan of Care Start Date 08/02/20 Plan of Care End Date 10/25/20 Therapeutic Interventions Therapeutic Interventions Balance Training,Gait Training ,Home Exercise Program,Joint Mobilizations,Manual Therapy, Neuromuscular Re-education, Patient/Caregiver Education, Self-Care/Home Management, Sensory Integration,Soft Tissue Mobilization,Taping, Therapeutic Activities, Therapeutic Exercises Modalities Cold Pack/Ice Massage,Electric Stimulation,Hot Packs Next Visit Focus/Plan Next Note Type Treatment Note Next Visit Plan Initiate hip strengthening in supine. Initiate standing balance activities. Plan of Care Dates Plan of Care Start Date 08/02/20 Plan of Care End Date 10/25/20 Electronically Signed by: Katie Benito PT 08/03/20 [id number] Please Sign and Return: I have reviewed this Plan of Care and certify that the skilled therapy services above are required to meet the patient?s needs. Physician Signature Date Printed Name and Credentials Clinical Instructor Signature Printed Name and Credentials
--- NOTE | 2020-08-05 13:45 | PT.OTN ---
Current Diagnoses Difficulty in walking, not elsewhere classified (08/05/20) Unspecified abnormalities of gait and mobility (08/05/20) Physical Therapy Treatment Note PT-OP-A Visit Information Start: 08/02/20 12:41 Freq: Status: Active Protocol: Document 08/05/20 13:06 SP (Rec: 08/05/20 15:59 SP [id number]) Out-Patient Physical Therapy Visit Information Visit Information Visit Type Treatment Note Visit Start Time 13:06 Visit Stop Time 13:45 Total Visit Minutes 39 Visit Number 2 Number of PROCESS ANALYST Visits 1 Evaluation Information Evaluation Date 08/02/20 PT-OP-B Current Condition Start: 08/02/20 12:41 Freq: Status: Active Protocol: Document 08/02/20 15:15 AW (Rec: 08/02/20 12:53 AW [id number]) Current Condition History of Current Condition Onset Date a year Current Complaints frequent falls History of Current Condition Pt states he has fallen numerous times in the past year and has hit his head at least one of those times. He was diagnosed with concussion but intracranial bleed was ruled out. He notes his diabetes is poorly controlled and he has gained a lot of weight over the past year, correlating with Covid isolation. He does not typically use any assistive device but will occasionally use a cane or walking sticks. Pt enjoys golf but his most recent fall was on the golf course and he has not been back. Pt reports back pain which he attributes to arthritis. He has been seen by orthopedics and was treated with spine and hip injections which he found helped minimally and without persistent effect. His last spinal injection occured about a week before his last fall which was on June 05. Though he has not fallen since that time, he endorses several close calls, especially on uneven terrain. Pt has history of polymyalgia rheumatica and is currently on a prednisone taper. Pt self-reports memory impairment. Prior Treatments and Tests Injections by ortho as above. PT Developmental History Developmental History PMH includes spinal stenosis, lumbar spondylolisthesis, right trochanteric bursitis, essential hypertension, polymyalgia rheumatica, PT in the past and pt cannot remember what for and what helped, BPH with urinary obstruction and surgery, CAD, DM, PVD Treatment Goals Patient/Caregiver Goals Gain LE strength. Improve balance. Return to golf using golf cart. Would like to be able to play 9 holes. PT-OP-C Subjective Start: 08/02/20 12:41 Freq: Status: Active Protocol: Document 08/05/20 13:06 SP (Rec: 08/05/20 15:59 SP [id number]) OP-PT Subjective Patient Comments Patient Comments Pt stated needing more strengthening due to medical issues had to take a month off PT. PT-OP-D Balance Start: 08/02/20 12:41 Freq: Status: Active Protocol: Document 08/02/20 15:15 AW (Rec: 08/03/20 12:51 AW [email or web address]) OP-PT Balance Assessment Sitting Balance Static Sitting Balance Ability Good Dynamic Sitting Balance Ability Fair Sitting Balance Comments UE support require for reaching outside BRADLEY Standing Balance Static Standing Balance Ability Fair Dynamic Standing Balance Ability Poor Device Used no AD Standing Balance Comments No dizziness or lightheadedness reported but unsteady in initial standing. Mendez Fall Scale Copyright Permission PT-OP-G Mobility & Gait Start: 08/02/20 12:41 Freq: Status: Active Protocol: Document 08/02/20 15:15 AW (Rec: 08/03/20 12:51 AW [email or web address]) OP Mobility Evaluation Bed Mobility Supine to and from Sit min assist with RUE assist for supine to sit OP Gait Assessment Gait Gait Assistance Required: Independent Distance (Feet) 100 Assistive Devices Assistive Device None Orthotic/Prosthetic Devices or Brace: No Gait Deviations General Gait Pattern Antalgic,Decreased Stride Length,Decreased Feet Clearance,Flexed Trunk,Wide Based Gait Factors Limiting Gait Function Factors Limiting Gait Function Limited Range of Motion,Pain, Poor Balance Comments Gait Comments Forward and flexed posture in gait, slow nirmal. PT-OP-H Neuro Start: 08/02/20 12:41 Freq: Status: Active Protocol: Document 08/02/20 15:15 AW (Rec: 08/03/20 12:51 AW [email or web address]) Vital Signs Blood Pressure Sitting Blood Pressure (90/60-120/80 mmHg) 160/88 H Blood Pressure Source Manual Cuff,Right Upper Extremity PT-OP-J Posture/Palpation/Skin Start: 08/02/20 12:41 Freq: Status: Active Protocol: Document 08/02/20 15:15 AW (Rec: 08/03/20 13:00 AW [email or web address]) Posture Evaluation Comments Posture Comments Pt standing with socks/no shoes: head is forward and shoulders are rounded bilaterally. Increased thoracic kyphosis/dowager's hump. Pt stands with increased anterior pelvic tilt, flexed trunk - mostly at hips - due to reported back pain with increased extension. PT-OP-K Range of Motion Start: 08/02/20 12:41 Freq: Status: Active Protocol: Document 08/02/20 15:15 AW (Rec: 08/03/20 13:00 AW [email or web address]) Cervical Spine Range of Motion Cervical Spine Active Comments Limited globally secondary to habitual posture and spinal changes. Hip Goniometric Range of Motion Hip ROM Limitations Comments Passive SLR (90/90) lacking ~ 20-30 degrees knee extension bilaterally. Positive scour test bilaterally. Rotation limited in B LE with internal more significantly restricted. PT-OP-M Strength Start: 08/02/20 12:41 Freq: Status: Active Protocol: Document 08/02/20 15:15 AW (Rec: 08/03/20 13:00 AW [email or web address]) Hip Strength Hip Manual Muscle Testing Left Flexion (L2) 4 Good Abduction 4 Good Adduction 4 Good Comments Pt supine Right Flexion (L2) 4+ Good+ Extension (S1) 4 Good Abduction 4 Good Comments Pt supine Knee Strength Knee Manual Muscle Testing Left Flexion (S2) 4 Good Extension (L3) 4+ Good+ Right Flexion (S2) 4 Good Extension (L3) 4+ Good+ Ankle/Foot Strength Ankle and Foot Manual Muscle Testing bilateral Dorsiflexion (L4) 4+ Good+ Plantarflexion (S1) 4 Good Inversion 4+ Good+ Eversion (S1) 4+ Good+ PT-OP-Q Treatments Start: 08/02/20 12:41 Freq: Status: Active Protocol: Document 08/05/20 13:06 SP (Rec: 08/05/20 15:59 SP [id number]) Therapeutic Exercises Supine Exercises TA BKFO Side bilateral Comments cued TA fac stable, not move - L more flex than R. TA draw in may Supine Exercise Name draw in, 10 hold x5> progressed to single LE alternating Reps/Minutes x15 Comments occasional cues under lower ribcage TA fac. Standing Exercises ankle mobility Side bilateral Comments forward LE on 2nd step fwd/ bkwd mobility, back leg stretch sls Reps/Minutes L 8, 6, 7; R 7, 8, 12 Comments cued tall posture, scap retraction, wt shift over stance LE, glut squeeze Gait Training Gait Activity stair Device Used 1 HR Level of Assistance S Distance/Duration 4 stair x3 sets Treatment Focus reciprocal pattern, safety Comments 6 stairs 1 HR, decreased L ankle mobilty into flexion descending Neuro Re-Education Treatment Balance Activities hurdles Details 6 turner stepping forward Surface firm Equipment CGA, GB Reps/Duration 4 laps Comments step to x2, step over step, cued clear trailing LE PT-OP-T Assessment and Plan Start: 08/02/20 12:41 Freq: Status: Active Protocol: Document 08/05/20 13:06 SP (Rec: 08/05/20 15:59 SP [id number]) Physical Therapy Assessment Goals Three Impairment balance Penitentiary Goal (LTG) Pt will perform within norms for age-matched peers on a standardized dynamic balance assessment to decrease falls risk. LTG Duration 12 weeks - 10/25/20 Two Impairment lacks HEP Short Term Goal (STG) Pt will be indpendent with HEP for support of therapy services provided in clinic. STG Duration 4 weeks - 08/30/20 One Impairment LE strength Childcare Provider Goal (LTG) Pt will complete at least 10 reps sit to stand without UE support in 30 seconds to demonstrate improved functional strength and safer transfers. LTG Duration 12 weeks - 10/25/20 Assessment Summary Assessment Pt tolerated tx well, improvement in self corrections of core facilitation post verbal and tactile cues with ability to progress core march, SKFO and SLS no pain just challenging in safe manner to incorporate at home confidence. Provided hand outs for recall. Progressed dynamic gait and stair mgt for PT only to assist response that trailing foot catches on step when descends at home, only noted during hurdles. Physical Therapy Plan Frequency and Duration Frequency of Treatment 2x/Week Duration of Treatment 12 weeks Plan of Care Start Date 08/02/20 Plan of Care End Date 10/25/20 Therapeutic Interventions Therapeutic Interventions Balance Training,Gait Training ,Home Exercise Program,Joint Mobilizations,Manual Therapy, Neuromuscular Re-education, Patient/Caregiver Education, Self-Care/Home Management, Sensory Integration,Soft Tissue Mobilization,Taping, Therapeutic Activities, Therapeutic Exercises Modalities Cold Pack/Ice Massage,Electric Stimulation,Hot Packs Next Visit Focus/Plan Next Note Type Treatment Note Next Visit Plan Last tx initiated HEP: core and AROM hips, SLS glut facilitation, turner stepping, stair mgt. POC: Initiate hip strengthening in supine. Initiate standing balance activities.
--- NOTE | 2020-08-09 17:28 | PT.OTN ---
Current Diagnoses Difficulty in walking, not elsewhere classified (08/09/20) Unspecified abnormalities of gait and mobility (08/09/20) Physical Therapy Treatment Note PT-OP-A Visit Information Start: 08/02/20 12:41 Freq: Status: Active Protocol: Document 08/09/20 13:45 AW (Rec: 08/09/20 13:45 AW [id number]) Out-Patient Physical Therapy Visit Information Visit Information Visit Type Treatment Note Visit Start Time 13:03 Visit Stop Time 13:43 Total Visit Minutes 40 Visit Number 3 Evaluation Information Evaluation Date 08/02/20 PT-OP-B Current Condition Start: 08/02/20 12:41 Freq: Status: Active Protocol: Document 08/02/20 15:15 AW (Rec: 08/02/20 12:53 AW [id number]) Current Condition History of Current Condition Onset Date a year Current Complaints frequent falls History of Current Condition Pt states he has fallen numerous times in the past year and has hit his head at least one of those times. He was diagnosed with concussion but intracranial bleed was ruled out. He notes his diabetes is poorly controlled and he has gained a lot of weight over the past year, correlating with Covid isolation. He does not typically use any assistive device but will occasionally use a cane or walking sticks. Pt enjoys golf but his most recent fall was on the golf course and he has not been back. Pt reports back pain which he attributes to arthritis. He has been seen by orthopedics and was treated with spine and hip injections which he found helped minimally and without persistent effect. His last spinal injection occured about a week before his last fall which was on June 05. Though he has not fallen since that time, he endorses several close calls, especially on uneven terrain. Pt has history of polymyalgia rheumatica and is currently on a prednisone taper. Pt self-reports memory impairment. Prior Treatments and Tests Injections by ortho as above. PT Developmental History Developmental History PMH includes spinal stenosis, lumbar spondylolisthesis, right trochanteric bursitis, essential hypertension, polymyalgia rheumatica, PT in the past and pt cannot remember what for and what helped, BPH with urinary obstruction and surgery, CAD, DM, PVD Treatment Goals Patient/Caregiver Goals Gain LE strength. Improve balance. Return to golf using golf cart. Would like to be able to play 9 holes. PT-OP-C Subjective Start: 08/02/20 12:41 Freq: Status: Active Protocol: Document 08/09/20 13:45 AW (Rec: 08/09/20 13:45 AW [id number]) OP-PT Subjective Patient Comments Patient Comments Pt has a stiff neck today. Has done HEP only one time since Saturday because he did not feel well over the weekend. PT-OP-D Balance Start: 08/02/20 12:41 Freq: Status: Active Protocol: Document 08/02/20 15:15 AW (Rec: 08/03/20 12:51 AW [email or web address]) OP-PT Balance Assessment Sitting Balance Static Sitting Balance Ability Good Dynamic Sitting Balance Ability Fair Sitting Balance Comments UE support require for reaching outside BRADLEY Standing Balance Static Standing Balance Ability Fair Dynamic Standing Balance Ability Poor Device Used no AD Standing Balance Comments No dizziness or lightheadedness reported but unsteady in initial standing. Mendez Fall Scale Copyright Permission PT-OP-G Mobility & Gait Start: 08/02/20 12:41 Freq: Status: Active Protocol: Document 08/02/20 15:15 AW (Rec: 08/03/20 12:51 AW [email or web address]) OP Mobility Evaluation Bed Mobility Supine to and from Sit min assist with RUE assist for supine to sit OP Gait Assessment Gait Gait Assistance Required: Independent Distance (Feet) 100 Assistive Devices Assistive Device None Orthotic/Prosthetic Devices or Brace: No Gait Deviations General Gait Pattern Antalgic,Decreased Stride Length,Decreased Feet Clearance,Flexed Trunk,Wide Based Gait Factors Limiting Gait Function Factors Limiting Gait Function Limited Range of Motion,Pain, Poor Balance Comments Gait Comments Forward and flexed posture in gait, slow nirmal. PT-OP-H Neuro Start: 08/02/20 12:41 Freq: Status: Active Protocol: Document 08/02/20 15:15 AW (Rec: 08/03/20 12:51 AW [email or web address]) Vital Signs Blood Pressure Sitting Blood Pressure (90/60-120/80 mmHg) 160/88 H Blood Pressure Source Manual Cuff,Right Upper Extremity PT-OP-J Posture/Palpation/Skin Start: 08/02/20 12:41 Freq: Status: Active Protocol: Document 08/02/20 15:15 AW (Rec: 08/03/20 13:00 AW [email or web address]) Posture Evaluation Comments Posture Comments Pt standing with socks/no shoes: head is forward and shoulders are rounded bilaterally. Increased thoracic kyphosis/dowager's hump. Pt stands with increased anterior pelvic tilt, flexed trunk - mostly at hips - due to reported back pain with increased extension. PT-OP-K Range of Motion Start: 08/02/20 12:41 Freq: Status: Active Protocol: Document 08/02/20 15:15 AW (Rec: 08/03/20 13:00 AW [email or web address]) Cervical Spine Range of Motion Cervical Spine Active Comments Limited globally secondary to habitual posture and spinal changes. Hip Goniometric Range of Motion Hip ROM Limitations Comments Passive SLR (90/90) lacking ~ 20-30 degrees knee extension bilaterally. Positive scour test bilaterally. Rotation limited in B LE with internal more significantly restricted. PT-OP-M Strength Start: 08/02/20 12:41 Freq: Status: Active Protocol: Document 08/02/20 15:15 AW (Rec: 08/03/20 13:00 AW [email or web address]) Hip Strength Hip Manual Muscle Testing Left Flexion (L2) 4 Good Abduction 4 Good Adduction 4 Good Comments Pt supine Right Flexion (L2) 4+ Good+ Extension (S1) 4 Good Abduction 4 Good Comments Pt supine Knee Strength Knee Manual Muscle Testing Left Flexion (S2) 4 Good Extension (L3) 4+ Good+ Right Flexion (S2) 4 Good Extension (L3) 4+ Good+ Ankle/Foot Strength Ankle and Foot Manual Muscle Testing bilateral Dorsiflexion (L4) 4+ Good+ Plantarflexion (S1) 4 Good Inversion 4+ Good+ Eversion (S1) 4+ Good+ PT-OP-Q Treatments Start: 08/02/20 12:41 Freq: Status: Active Protocol: Document 08/09/20 13:45 AW (Rec: 08/09/20 13:45 AW [id number]) Therapeutic Exercises Supine Exercises bridge Supine Exercise Name bridge Reps/Minutes no hold; 8 reps Comments good, slow control hip abd/ER Supine Exercise Name hip abd/ER Side bilateral Resistance level 2 Equipment Used TB Reps/Minutes x10 Comments cued eccentric control LTR Supine Exercise Name LTR Side bilateral Reps/Minutes x 8 Comments feels good - between sets of LEROY work TA draw in may Supine Exercise Name progressed to active SLR Reps/Minutes 6 x 2 Standing Exercises sit to stand Standing Exercise Name sit to stand Equipment Used 20 height treatment table Reps/Minutes 5 x 2 Comments no UE support, cued weight shift, glute dominant movement PT-OP-T Assessment and Plan Start: 08/02/20 12:41 Freq: Status: Active Protocol: Document 08/09/20 13:45 AW (Rec: 08/09/20 17:27 AW [email or web address]) Physical Therapy Assessment Goals Three Impairment balance Lock Expert Goal (LTG) Pt will perform within norms for age-matched peers on a standardized dynamic balance assessment to decrease falls risk. LTG Duration 12 weeks - 10/25/20 Two Impairment lacks HEP Short Term Goal (STG) Pt will be indpendent with HEP for support of therapy services provided in clinic. STG Duration 4 weeks - 08/30/20 One Impairment LE strength Lock Expert Goal (LTG) Pt will complete at least 10 reps sit to stand without UE support in 30 seconds to demonstrate improved functional strength and safer transfers. LTG Duration 12 weeks - 10/25/20 Assessment Summary Assessment Progressed proximal strengthening in supine and initiated sit to stand training. Pt showed good effort with all activity and tolerated well. Physical Therapy Plan Frequency and Duration Frequency of Treatment 2x/Week Duration of Treatment 12 weeks Plan of Care Start Date 08/02/20 Plan of Care End Date 10/25/20 Therapeutic Interventions Therapeutic Interventions Balance Training,Gait Training ,Home Exercise Program,Joint Mobilizations,Manual Therapy, Neuromuscular Re-education, Patient/Caregiver Education, Self-Care/Home Management, Sensory Integration,Soft Tissue Mobilization,Taping, Therapeutic Activities, Therapeutic Exercises Modalities Cold Pack/Ice Massage,Electric Stimulation,Hot Packs Next Visit Focus/Plan Next Note Type Treatment Note Next Visit Plan HEP: core and AROM hips, SLS glut facilitation, turner stepping, stair mgt. POC: Initiate hip strengthening in supine. Initiate standing balance activities.
--- NOTE | 2020-08-11 11:00 | PT-OP ANOTE ---
Pt did not show for today's appt, when called him he stated forgot about today's appt. ADVERTISING SALES ASSOCIATE reminded him of next appt on 08/16/20 with PT Katie and stated needs to cancel this appt due to prep needed for gastrointestinal appt on 08/17/20 and will probably not want to leave the house. ADVERTISING SALES ASSOCIATE reminded that will see ADVERTISING SALES ASSOCIATE Karen at 08/18/20 appt last schduled and vest front presser will be adding more appts 2x/wk with agreement of PT and pt. ADVERTISING SALES ASSOCIATE notified vest front presser Yaneli of pt wishing to cancel 08/16/20 appt and pt aware will be adding additional appts when arrives 08/18/20.
--- NOTE | 2020-08-18 13:22 | PT-OP ANOTE ---
Pt did not show for today's appt. Left a message regarding and reminded there are no more appts scheduled but sent a message up to [facility] director to schedule more with PT in agreement. Pt had GI testing on 08/16 or , he stated when spoke last week over phone and maybe still recoverying?
--- NOTE | 2020-08-31 08:42 | PT.OPDS ---
Current Diagnoses Difficulty in walking, not elsewhere classified (08/09/20) Unspecified abnormalities of gait and mobility (08/09/20) Visit Care Team Role Provider Type Matt Medina MD Attending Provider Physician Family Provider Primary Care Provider Referring Provider Specialty: Internal Medicine Address: [address] [place] [address], [address] [place] [address], [id number] Email: [email or web address] Visit Number Visit Number 3 Discharge Summary PT-OP-B Current Condition Start: 08/02/20 12:41 Freq: Status: Active Protocol: Document 08/02/20 15:15 AW (Rec: 08/02/20 12:53 AW [id number]) Current Condition History of Current Condition Onset Date a year Current Complaints frequent falls History of Current Condition Pt states he has fallen numerous times in the past year and has hit his head at least one of those times. He was diagnosed with concussion but intracranial bleed was ruled out. He notes his diabetes is poorly controlled and he has gained a lot of weight over the past year, correlating with Covid isolation. He does not typically use any assistive device but will occasionally use a cane or walking sticks. Pt enjoys golf but his most recent fall was on the golf course and he has not been back. Pt reports back pain which he attributes to arthritis. He has been seen by orthopedics and was treated with spine and hip injections which he found helped minimally and without persistent effect. His last spinal injection occured about a week before his last fall which was on June 05. Though he has not fallen since that time, he endorses several close calls, especially on uneven terrain. Pt has history of polymyalgia rheumatica and is currently on a prednisone taper. Pt self-reports memory impairment. Prior Treatments and Tests Injections by ortho as above. PT Developmental History Developmental History PMH includes spinal stenosis, lumbar spondylolisthesis, right trochanteric bursitis, essential hypertension, polymyalgia rheumatica, PT in the past and pt cannot remember what for and what helped, BPH with urinary obstruction and surgery, CAD, DM, PVD Treatment Goals Patient/Caregiver Goals Gain LE strength. Improve balance. Return to golf using golf cart. Would like to be able to play 9 holes. PT-OP-C Subjective Start: 08/02/20 12:41 Freq: Status: Active Protocol: Document 08/09/20 13:45 AW (Rec: 08/09/20 13:45 AW [id number]) OP-PT Subjective Patient Comments Patient Comments Pt has a stiff neck today. Has done HEP only one time since Saturday because he did not feel well over the weekend. PT-OP-D Balance Start: 08/02/20 12:41 Freq: Status: Active Protocol: Document 08/02/20 15:15 AW (Rec: 08/03/20 12:51 AW [email or web address]) OP-PT Balance Assessment Sitting Balance Static Sitting Balance Ability Good Dynamic Sitting Balance Ability Fair Sitting Balance Comments UE support require for reaching outside [place]LEY Standing Balance Static Standing Balance Ability Fair Dynamic Standing Balance Ability Poor Device Used no AD Standing Balance Comments No dizziness or lightheadedness reported but unsteady in initial standing. Mendez Fall Scale Copyright Permission PT-OP-G Mobility & Gait Start: 08/02/20 12:41 Freq: Status: Active Protocol: Document 08/02/20 15:15 AW (Rec: 08/03/20 12:51 AW [email or web address]) OP Mobility Evaluation Bed Mobility Supine to and from Sit min assist with RUE assist for supine to sit OP Gait Assessment Gait Gait Assistance Required: Independent Distance (Feet) 100 Assistive Devices Assistive Device None Orthotic/Prosthetic Devices or Brace: No Gait Deviations General Gait Pattern Antalgic,Decreased Stride Length,Decreased Feet Clearance,Flexed Trunk,Wide Based Gait Factors Limiting Gait Function Factors Limiting Gait Function Limited Range of Motion,Pain, Poor Balance Comments Gait Comments Forward and flexed posture in gait, slow nirmal. PT-OP-H Neuro Start: 08/02/20 12:41 Freq: Status: Active Protocol: Document 08/02/20 15:15 AW (Rec: 08/03/20 12:51 AW [email or web address]) Vital Signs Blood Pressure Sitting Blood Pressure (90/60-120/80 mmHg) 160/88 H Blood Pressure Source Manual Cuff,Right Upper Extremity PT-OP-J Posture/Palpation/Skin Start: 08/02/20 12:41 Freq: Status: Active Protocol: Document 08/02/20 15:15 AW (Rec: 08/03/20 13:00 AW [email or web address]) Posture Evaluation Comments Posture Comments Pt standing with socks/no shoes: head is forward and shoulders are rounded bilaterally. Increased thoracic kyphosis/dowager's hump. Pt stands with increased anterior pelvic tilt, flexed trunk - mostly at hips - due to reported back pain with increased extension. PT-OP-K Range of Motion Start: 08/02/20 12:41 Freq: Status: Active Protocol: Document 08/02/20 15:15 AW (Rec: 08/03/20 13:00 AW [email or web address]) Cervical Spine Range of Motion Cervical Spine Active Comments Limited globally secondary to habitual posture and spinal changes. Hip Goniometric Range of Motion Hip ROM Limitations Comments Passive SLR (90/90) lacking ~ 20-30 degrees knee extension bilaterally. Positive scour test bilaterally. Rotation limited in B LE with internal more significantly restricted. PT-OP-M Strength Start: 08/02/20 12:41 Freq: Status: Active Protocol: Document 08/02/20 15:15 AW (Rec: 08/03/20 13:00 AW [email or web address]) Hip Strength Hip Manual Muscle Testing Left Flexion (L2) 4 Good Abduction 4 Good Adduction 4 Good Comments Pt supine Right Flexion (L2) 4+ Good+ Extension (S1) 4 Good Abduction 4 Good Comments Pt supine Knee Strength Knee Manual Muscle Testing Left Flexion (S2) 4 Good Extension (L3) 4+ Good+ Right Flexion (S2) 4 Good Extension (L3) 4+ Good+ Ankle/Foot Strength Ankle and Foot Manual Muscle Testing bilateral Dorsiflexion (L4) 4+ Good+ Plantarflexion (S1) 4 Good Inversion 4+ Good+ Eversion (S1) 4+ Good+ PT-OP-T Assessment and Plan Start: 08/02/20 12:41 Freq: Status: Active Protocol: Document 08/31/20 08:41 AW (Rec: 10/12/20 08:41 AW [email or web address]) Physical Therapy Plan Discharge Physical Therapy Discharge Reasons No Longer Attending PT Discharge Comments Left multiple messages for pt to call and schedule more appointments. Pt has not responded. Discharging current plan of care at this time.
== END 2020-10-13 15:35 | disposition home or self-care (01) ==
LOC: PHYS 13:00
PROVIDERS: Family Provider Internal Medicine; PCP Internal Medicine; Referring Provider Internal Medicine; Visit Provider Internal Medicine
DX: R26.9 Unspecified abnormalities of gait and mobility (principal); R26.2 Difficulty in walking, not elsewhere classified
CPT/HCPCS: 97110; 97112; 97162

== ENCOUNTER → 2020-08-10 14:02 | Outpatient (CLI) | payer MEDICARE, OTHER, SELFPAY ==
[2018-07-31 15:48] VITALS: BMI 27.1
[2020-08-10 15:44] LABS: Thyroid Stimulating Hormone 2.54 uIU/mL (0.47-4.68)
[2020-08-11 08:47] LABS: Immunoglobulin A 300 mg/dL (61-437)
[2020-08-11 19:30] LABS: Tissue Transglutaminase IgA <2 U/mL (0-3); Tissue Transglutaminase IgG <2 U/mL (0-5)
== END ==
PROVIDERS: Family Provider Internal Medicine; PCP Internal Medicine; Referring Provider Student in an Organized Health Care Education/Training Program; Visit Provider Student in an Organized Health Care Education/Training Program
DX: R19.7 Diarrhea, unspecified (principal); R53.83 Other fatigue
CPT/HCPCS: 36415; 82784; 83516; 84443

== ENCOUNTER → 2020-08-15 10:10 | Outpatient (CLI) | payer MEDICARE, OTHER, SELFPAY ==
[2018-07-31 15:48] VITALS: BMI 27.1
[2020-08-15 11:50] LABS: COVID19 -Nasal RAPID Negative (Negative)
== END ==
PROVIDERS: Family Provider Internal Medicine; PCP Internal Medicine; Visit Provider Physician Assistant
DX: Z01.812 Encounter for preprocedural laboratory examination (principal); Z20.822 Contact with and (suspected) exposure to COVID-19
CPT/HCPCS: 87635; C9803

== ENCOUNTER → 2020-08-17 14:28 | Day surgery (SDC) | payer MEDICARE, OTHER, SELFPAY ==
[2018-07-31 15:48] VITALS: BMI 27.1
--- NOTE | 2020-08-17 | PATH_ITS ---
[facility] Accession Number: [id number] . 01 Material submitted: . PART A: small bowel - SMALL BOWEL PART B: stomach - GASTRIC PART C: colon - ASCENDING COLON POLYPS X3 PART D: colon - TRANSVERSE POLYP X3 PART E: colon - DESCENDING COLON POLYPS X2 PART F: colon - RANDOM COLON X2 . 01 Clinical history: . A) R/O CELIAC SPRUE B) R/O H.PYLORI F) HX OF DIARRHEA . 02 Diagnosis: A. Small Bowel, Biopsy: Small bowel mucosa with no diagnostic abnormality. Negative for intraepithelial lymphocytosis or villous blunting. Negative for granulomatous dysplasia and malignancy. . B. Stomach, Biopsy: Antral and body type mucosa with mild chronic gastritis. Negative for Helicobacter by immunohistochemistry. Negative for intestinal metaplasia. Negative for dysplasia and malignancy. . C. Ascending Colon, Polyps x3, Biopsies: Tubular adenoma in three of four fragments. . D. Transverse Colon, Polyp x3, Biopsy: Tubular adenomas, two fragments. . E. Descending Colon, Polyps x2, Biopsies: Tubular adenomas. . F. Random Colon, Biopsies: Colonic mucosa with no diagnostic abnormality. Negative for active, chronic, and microscopic colitis. Negative for dysplasia and malignancy. . [facility] 08/22/2020 1543 Local . 02 Electronically signed: . Payal Gunter MD, Pathologist NPI- [id number] . 01 Gross description: . Part A: SMALL BOWEL: Received in formalin are 4 fragment(s) of woods, soft tissue measuring 0.4 x 0.2 x 0.2 cm to 0.2 x 0.2 x 0.2 cm submitted entirely in 1 cassette(s) Part B: GASTRIC: Received in formalin are 2 fragment(s) of woods, soft tissue measuring 0.5 x 0.3 x 0.2 cm to 0.3 x 0.3 x 0.3 cm submitted entirely in 1 cassette(s) Part C: ASCENDING COLON POLYPS X3: Received in formalin are multiple fragment(s) of woods, soft tissue measuring 1.3 x 0.5 x 0.3 cm in aggregate submitted entirely in 1 cassette(s) Part D: TRANSVERSE POLYP X3: Received in formalin are 2 fragment(s) of woods, soft tissue measuring 0.9 x 0.6 x 0.5 cm to 0.5 x 0.4 x 0.3 cm submitted entirely in 1 cassette(s) Part E: DESCENDING COLON POLYPS X2: Received in formalin are multiple fragment(s) of woods, soft tissue measuring 1.2 x 1.0 x 0.4 cm in aggregate submitted entirely in 1 cassette(s) Part F: RANDOM COLON X2: Received in formalin are multiple fragment(s) of woods, soft tissue measuring 0.7 x 0.5 x 0.1 cm in aggregate submitted entirely in 1 cassette(s) /JUAN RAMON 08/18/2020 0624 Local . 02 Microscopic: . B. An immunohistochemical stain was performed to evaluate for Helicobacter organisms and is negative. The control stain showed appropriate reactivity. . * This test was developed and its performance characteristics determined by [facility]. It has not been cleared or approved by the U.S. Food and Drug Administration. The FDA has determined that such clearance or approval is not necessary. This test is used for clinical purposes. It should not be regarded as investigational or for research. . 02 Pathologist provided ICD-10: R19.7, R13.10, D12.3, D12.2, D12.4 . 02 CPT . 951166, 218235, 203617, 958893, [id number], [id number], [id number] Performed at: 01 [facility] [address], [place], [place] [id number] MD Chico Martinez MD Phone: [phone] Performed at: 02 [facility] [address] [place], [place] [id number] MD Payal Gunter MD Phone: [phone]
[2020-08-17 15:07] VITALS: BP 160/62; PULSE 70; RESP 18; TEMP 36.3; O2SAT 97; BMI 31.6
--- NOTE | 2020-08-17 15:25 | PM.HP.1 ---
History of Present Illness History of Present Illness Date Patient Seen: 08/17/20 Time Patient Seen: 15:25 Chief complaint: SDC Narrative: Patient is a very pleasant 80-year-old male who presented for EGD and colonoscopy. Patient was seen in the office on July 14, 2020. He had been having episodes of difficulty swallowing and ?gagging?. He also has been having diarrhea. He does have a personal history of colon polyps. His last colonoscopy was 5-6 years ago. Since his office visit he did have laboratory testing negative for celiac disease and thyroid disease. He does take long-term anticoagulation with Brilinta. Last dose was 5 days ago. Patient History Medical History (Updated 08/17/20 @ 14:50 by Itzel Bustos RN) Benign prostatic hyperplasia with urinary obstruction (03/25/15) BPH w urinary obs/LUTS Chicken pox Chronic back pain (1989) Coronary artery disease involving [place] coronary artery of [place] heart without angina pectoris (1995) Depression Diabetes Essential hypertension Family history of prostate cancer Femur fracture (1965) Fracture (1951) Gilbert's syndrome Hayfever (1999) Hepatitis A (1963) History of nephrolithiasis HLD (hyperlipidemia) Incomplete bladder emptying Kidney stones Measles Melanoma (1987) Mild claudication Mixed hyperlipidemia Mumps Peripheral vascular disease (2009) Polymyalgia rheumatica (08/30/15) Primary osteoarthritis of both hips (08/30/15) Recurrent falls Shoulder pain (2011) Spinal stenosis Tinnitus Type 2 diabetes mellitus without complication (06/20/15) Urge urinary incontinence Surgical History (Updated 08/17/20 @ 14:51 by Itzel Bustos RN) History of appendectomy History of coronary artery stent placement History of orthopedic surgery (1965) Status post appendectomy (1956) Status post coronary artery bypass graft (1995) Family & Social History Family History Father Colon cancer Prostate enlargement Bladder cancer History of hip surgery Pneumonia History of prostate surgery Mother Diabetes mellitus Heart disease Hypertension High cholesterol Osteoporosis History of cataract surgery H/O heart bypass surgery Arthritis Grandfather Arthritis Prostate cancer Colon cancer Deaf Legally blind Grandmother Diabetes mellitus Hypertension Angina pectoris Heart disease Osteoporosis Social History: household members spouse lives independently Yes caregiver/support person No Tobacco & Substance use: Smoking Status Former smoker alcohol intake current alcohol intake frequency a few times a week Substance Use Type does not use Meds Home Medications and Allergies Home Medications Medication Instructions Recorded Confirmed Type aspirin 81 mg tablet,delayed 81 mg PO DAILY 09/09/18 08/17/20 History release carvedilol 25 mg tablet 25 mg PO BID #60 tab 09/09/18 08/17/20 History ticagrelor 90 mg tablet 90 mg PO BID 09/17/19 08/17/20 History vitamin B complex 1 tab PO DAILY 09/24/19 08/17/20 History sertraline 100 mg tablet 50 mg PO DAILY #90 tab 11/10/19 08/17/20 Rx valacyclovir 1 gram tablet 1,000 mg PO TID PRN tab 12/18/19 08/17/20 History finasteride 5 mg tablet 5 mg PO DAILY #90 tab 02/04/20 08/17/20 Rx famotidine 20 mg tablet 20 mg PO BID #180 tab 02/08/20 08/17/20 Rx semaglutide 0.5 mg SUBCUT QWEEK 02/16/20 08/17/20 History tamsulosin 0.4 mg capsule 0.4 mg PO BID #180 tab 03/07/20 08/17/20 Rx hydrochlorothiazide 12.5 mg tablet 12.5 mg PO BID #180 tab 03/09/20 08/17/20 Rx metformin 1,000 mg tablet 1,000 mg PO BID #180 tab 03/17/20 08/17/20 Rx glipizide 10 mg tablet 10 mg PO DAILY #90 tab 07/06/20 08/17/20 Rx potassium chloride 20 mEq 20 meq PO DAILY #60 tab 07/25/20 08/17/20 Rx tablet,extended release acetaminophen [Tylenol] 650 mg PO DAILY PRN 08/17/20 08/17/20 History cilostazol 100 mg PO BID 08/17/20 08/17/20 History folic acid 1 mg PO DAILY 08/17/20 08/17/20 History glucosamine sulfate [Glucosamine] 750 mg PO DAILY 08/17/20 08/17/20 History ibuprofen 400 mg PO TID PRN 08/17/20 08/17/20 History isosorbide dinitrate 20 mg PO BID 08/17/20 08/17/20 History rosuvastatin 20 mg PO DAILY 06/16/21 06/16/21 History Allergies Allergy/AdvReac Type Severity Reaction Status Date / Time clavulanic acid Allergy Severe Rash/Hives Verified 06/17/20 13:28 [From Augmentin] - internal reaction clopidogrel [From Plavix] Allergy Severe Hives. Verified 06/17/20 13:28 Penicillins Allergy Intermediate HIVES Verified 06/17/20 13:28 amoxicillin AdvReac Intermediate Hives Verified 06/17/20 13:28 [id number] Reductase AdvReac Intermediate fatigue, Verified 06/17/20 13:28 Inhibitor extreme Review of Systems Review of Systems ROS: Yes All systems reviewed with the patient and are negative except as otherwise documented Exam Vital Signs (past 8 hours): - 08/17/20 15:07 Temperature 97.4 F L Pulse Rate 70 Respiratory Rate 18 Blood Pressure 160/62 H Pulse Oximetry 97 Oxygen Delivery Method Room Air Oxygen Flow Rate 0 Const General: cooperative, healthy appearing, comfortable and well developed Nutritional Appearance: well nourished and obese Orientation: alert, awake and oriented x3 HENMT Head: normocephalic and atraumatic Resp Effort & Inspection: normal respiratory effort and able to speak in complete sentences Auscultation: clear to auscultation bilaterally Cardio Rate: regular rate Rhythm: regular rhythm Heart Sounds: S1 normal and S2 normal GI Inspection: obesity Auscultation: normal bowel sounds Psych Appearance: grossly normal and well kempt Affect: normal affect Judgment: judgment good Assessment & Plan Assessment & Plan narrative: 1. Dysphagia 2. History of polyps 3. Diarrhea 4. 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
[2020-08-17] MEDS: SODIUM CHLORIDE 0.9% 1,000 ML 70 ML IV (15:28)
--- NOTE | 2020-08-17 16:24 | P.OP.ENDO_ITS ---
Operative Date/Time/Diagnoses Date of procedure: 08/17/20 Time of procedure: 15:53 Procedure Notes Procedure in detail: Surgeon: Katelyn Last DO Procedure: Esophagogastroduodenoscopy with biopsy and colonoscopy with polypectomy and random colon biopsies Preoperative diagnosis: 1. Dysphagia 2. Diarrhea 3. History of colon polyps Postoperative diagnosis: -erosive gastritis, biopsied to rule out H pylori -normal-appearing duodenum -3 5-7 mm polyps removed from the ascending colon -2 5-8 mm polyps removed from the transverse colon -2 4-6 mm polyps removed from the descending coon -sigmoid diverticulosis -normal appearing colonic mucosa, biopsied to rule out microscopic colitis -grade 1-2 internal hemorrhoids Medications: Monitored anesthesia care Preanesthesia Assessment An H and P was performed/updated and the Px?s ASA class is 4. The procedure was discussed in detail with the patient. The potential risks and complications including infection, bleeding, missed lesions, perforation, need for surgery in case of perforation, prolonged hospital stay, and were explained. A brief question and answer period was allotted and once all questions were answered, informed consent was obtained. The patient was brought back to the procedure room and placed on standard monitoring. The patient?s vital signs were monitored continuously throughout the entire procedure. Prior to starting, a timeout was performed to confirm the patient?s identity, allergies, medications, and procedure. Procedure in detail The patient was placed in left lateral decubitus position and a bite block was inserted. The tip of the upper endoscope was placed into the mouth and advanced without difficulty under direct visualization into the esophagus. Esophagus: Normal appearing esophagus, no stricture identified Stomach: Erosive gastritis, biopsied to rule out H pylori Normal-appearing stomach on retroflexion Duodenum: Normal-appearing duodenum, biopsied rule out celiac sprue After the upper endoscopy, preparations were made for the colonoscopy. Once adequate sedation was obtained a RENETTA was performed. The digital rectal examination did not reveal any palpable lesions. The tip of the colonoscope was placed in the anal canal and advanced with some difficulty due to a redundant colon. Manual pressure was applied which aided in advancement all the way to the cecum which was identified by the appendiceal orifice and the ileocecal valv e. -3 5-7 mm polyps removed from the ascending colon removed with cold snare -2 5-8 mm polyps removed from the transverse colon removed with cold snare -2 4-6 mm polyps removed from the descending coon removed with cold snare -normal appearing colonic mucosa, random biopsies were completed to rule out microscopic colitis -sigmoid diverticulosis -grade 1-2 internal hemorrhoids were noted on retroflexion The patient tolerated the procedure well and will be brought back to the recovery area to be discharged once criteria are met. The prep was judged to be good/excellent and adequate to identify polyps less than 6 mm. The withdrawal time was 14min. The total physician intraservice time was 30min. Complications There were no complications and estimated blood loss was minimal. Recommendations Resume previous diet Continue outpatient medications Follow-up pathology results Repeat colonoscopy will be determined after pathology results are reviewed Resume anticoagulation tomorrow Follow-up at our office as needed An emergency contact number was given to the patient for any complications related to the procedure
[2020-08-17 16:28] VITALS: BP 142/77; PULSE 63; RESP 16; TEMP 36.3; O2SAT 96
[2020-08-17 16:32] VITALS: BP 137/72; PULSE 62; RESP 16; O2SAT 96
[2020-08-17 16:37] VITALS: BP 137/77; BP 145/75; PULSE 62; PULSE 66; RESP 14; RESP 16; O2SAT 95; O2SAT 96
[2020-08-17 16:55] VITALS: BP 157/88; PULSE 63; RESP 14; TEMP 36.6; O2SAT 98
== END | disposition home or self-care (01) ==
PROVIDERS: Family Provider Internal Medicine; PCP Internal Medicine; Referring Provider Student in an Organized Health Care Education/Training Program; Visit Provider Student in an Organized Health Care Education/Training Program
PROC: 0DJ08ZZ Inspection of Upper Intestinal Tract, Via Natural or Artificial Opening Endoscopic (ICD-10-PCS; CPT 43235; principal; 2020-08-17 16:00)
PROC: 0DJD8ZZ Inspection of Lower Intestinal Tract, Via Natural or Artificial Opening Endoscopic (ICD-10-PCS; CPT 45378; 2020-08-17 16:00)
DX: R19.7 Diarrhea, unspecified (principal); R13.10 Dysphagia, unspecified; I25.10 Atherosclerotic heart disease of native coronary artery without angina pectoris; Z79.01 Long term (current) use of anticoagulants; Z95.1 Presence of aortocoronary bypass graft; Z79.84 Long term (current) use of oral hypoglycemic drugs; E11.9 Type 2 diabetes mellitus without complications; E78.5 Hyperlipidemia, unspecified; I10 Essential (primary) hypertension; K57.30 Diverticulosis of large intestine without perforation or abscess without bleeding; K64.0 First degree hemorrhoids; K29.50 Unspecified chronic gastritis without bleeding; D12.2 Benign neoplasm of ascending colon; D12.3 Benign neoplasm of transverse colon
CPT/HCPCS: 45385; 43239; J2704; J3010

== ENCOUNTER → 2020-12-09 10:32 | Outpatient (CLI) | payer MEDICARE, OTHER, SELFPAY ==
[2018-07-31 15:48] VITALS: BMI 27.1
[2020-12-10 09:31] LABS: Creatinine Urine Random 269.2 mg/dL
[2020-12-10 09:43] LABS: Microalbumi Creatinin Ratio Ur 70.5 ug/mg CR (<30); Microalbumin Urine Random > 19.0 mg/dL (0-1.6)
[2020-12-10 10:47] LABS: Alanine Aminotransferase 33 IU/L (<50); Albumin 4.4 g/dL (3.5-5.0); Albumin Globulin Ratio 1.7 (1.0-2.8); Alkaline Phosphatase 108 U/L (38-126); Aspartate Aminotransferase 45 IU/L (17-59); BUN Creatinine Ratio 11.9 (6-22); Blood Urea Nitrogen 13 mg/dL (9-20); Calcium 9.3 mg/dL (8.4-10.2); Carbon Dioxide 28 mmol/L (22-32); Chloride 102 mmol/L (98-107); Cholesterol 310 mg/dL (140-199); Estimated Glomerular Filt Rate > 60.0 mL/min (>60); Globulin 2.6 g/dL (1.7-4.1); Glucose 143 mg/dL (80-110); HDL Cholesterol 46 mg/dL (40-60); HEMOLYSIS < 15 (0-50); LDL Cholesterol Calculated 203 mg/dL (<100); Potassium 3.9 mmol/L (3.4-5.1); Sodium 139 mmol/L (137-145); Triglycerides 306 mg/dL (35-150)
== END ==
PROVIDERS: Family Provider Internal Medicine; PCP Internal Medicine; Referring Provider Nurse Practitioner; Visit Provider Nurse Practitioner
DX: E11.59 Type 2 diabetes mellitus with other circulatory complications (principal)
CPT/HCPCS: 36415; 80053; 80061; 82043; 82570; 83036

== ENCOUNTER → 2020-12-09 11:49 | Outpatient (CLI) | payer MEDICARE, OTHER, SELFPAY ==
[2018-07-31 15:48] VITALS: BMI 27.1
--- NOTE | 2020-12-09 11:51 | DI.RAD.S_ITS ---
PROCEDURE: XR RIBS RT MIN 3V W CXR 1V INDICATIONS: R sided lower rib pain TECHNIQUE: 2 views of the right ribs were acquired, along with a single view chest. COMPARISON: None. FINDINGS: Surgical changes and devices: None. Bones and chest wall: No fractures or dislocations. No suspicious bony lesions. Overlying soft tissues appear unremarkable. Lungs and pleura: No pleural effusions or pneumothorax. Mild cardiomegaly. Mediastinum: Mediastinal contours appear normal. Heart size is normal. IMPRESSION: Mild cardiomegaly. No displaced right rib fracture noted. No evidence acute pulmonary process. Dictated by: Angel Lira M.D. on 12/09/2020 at 12:52 Approved by: Angel Lira M.D. on 12/09/2020 at 12:55
== END ==
PROVIDERS: Family Provider Internal Medicine; PCP Internal Medicine; Referring Provider Nurse Practitioner; Visit Provider Nurse Practitioner
DX: R07.81 Pleurodynia (principal); I51.7 Cardiomegaly
CPT/HCPCS: 71101

== ENCOUNTER → 2021-02-02 11:39 | Outpatient (CLI) | payer MEDICARE, OTHER, SELFPAY ==
[2018-07-31 15:48] VITALS: BMI 27.1
--- NOTE | 2021-02-02 11:41 | DI.MRI.S_ITS ---
PROCEDURE: MR CERVICAL SPINE WO CON INDICATIONS: Cervicalgia TECHNIQUE: Noncontrast sagittal T1 spin echo and T2 fast spin echo, sagittal STIR, foraminal oblique sagittal T2 fast spin echo, and axial gradient echo or T2 fast spin echo through the cervical spine. COMPARISON: None. FINDINGS: Image quality: Excellent. Alignment and Curvature: Straightening of the normal lordotic curvature. Trace anterolisthesis of C3 on C4. Bone Marrow: No evidence of acute fracture. Multilevel degenerative endplate sclerosis and spurring. Diffuse facet arthropathy. Spinal Cord: Visualized spinal cord has normal size and signal. No cerebellar tonsillar herniation. Paraspinous Soft Tissues: No paravertebral masses. Prevertebral soft tissues are normal in thickness. C2-C3: No canal stenosis. Moderate bilateral foraminal stenosis with nerve root compression on both sides. C3-C4: Mild canal narrowing with anterior thecal sac effacement. Severe bilateral foraminal stenosis with nerve root compression seen on both sides.. C4-C5: Mild canal narrowing with effacement of the anterior thecal sac. Mild right foraminal stenosis. Severe left foraminal stenosis with nerve root compression. C5-C6: Mild canal narrowing with effacement of the anterior thecal sac and partial effacement of the posterior thecal sac. Severe right foraminal stenosis with nerve root compression. Moderate left foraminal stenosis although suggestion of borderline nerve root compression. C6-C7: Moderate canal narrowing. Moderate right foraminal stenosis. Severe left foraminal stenosis with nerve root compression. C7-T1: Normal appearance. IMPRESSION: Straightening of the normal cervical lordosis and trace anterolisthesis of C3 on C4. Moderate C6-C7 canal stenosis. Numerous bilateral foraminal stenoses as detailed above by spinal level. Approved by: Ant Marshall M.D. on 02/02/2021 at 13:12
== END ==
PROVIDERS: Family Provider Internal Medicine; PCP Internal Medicine; Referring Provider Physical Medicine & Rehabilitation Pain Medicine; Visit Provider Physical Medicine & Rehabilitation Pain Medicine
DX: M48.02 Spinal stenosis, cervical region (principal); M54.2 Cervicalgia
CPT/HCPCS: 72141

== ENCOUNTER → 2021-04-14 12:07 | Outpatient (CLI) | payer MEDICARE, OTHER, SELFPAY ==
[2018-07-31 15:48] VITALS: BMI 27.1
--- NOTE | 2021-04-14 12:09 | DI.RAD.S_ITS ---
PROCEDURE: XR FOOT RT MIN 3V INDICATIONS: right foot pain TECHNIQUE: 3 views of the foot were acquired. COMPARISON: None. FINDINGS: Bones: No fractures or dislocations. No suspicious bony lesions. Large plantar calcaneal bone spur. Mild midfoot osteoarthritis. No periosteal reaction or osseous erosive changes. Soft tissues: No tibiotalar joint effusion. Achilles tendon appears normal. No soft tissue gas. IMPRESSION: No harish evidence of osteomyelitis. Plain film radiographs can be insensitive to osteomyelitis during the initial 15 days of the disease process. If there is clinical concern for osteomyelitis, then three-phase nuclear medicine bone scan or MRI should be considered for further evaluation. Dictated by: Babs Renae MD, PhD on 04/14/2021 at 12:31 Approved by: Babs Renae MD, PhD on 04/14/2021 at 12:32
== END ==
PROVIDERS: Family Provider Internal Medicine; PCP Internal Medicine; Referring Provider Nurse Practitioner Family; Visit Provider Nurse Practitioner Family
DX: M19.071 Primary osteoarthritis, right ankle and foot (principal); M77.31 Calcaneal spur, right foot; M79.671 Pain in right foot
CPT/HCPCS: 73630

== ENCOUNTER → 2021-06-01 10:47 | Outpatient (CLI) | payer MEDICARE, OTHER, SELFPAY ==
[2018-07-31 15:48] VITALS: BMI 27.1
[2021-06-01 12:50] LABS: Cholesterol 150 mg/dL (140-199); HDL Cholesterol 53 mg/dL (40-60); LDL Cholesterol Calculated 59 mg/dL (<100); Triglycerides 189 mg/dL (35-150)
== END ==
PROVIDERS: Family Provider Internal Medicine; PCP Internal Medicine; Referring Provider Internal Medicine Cardiovascular Disease; Visit Provider Internal Medicine Cardiovascular Disease
DX: E78.5 Hyperlipidemia, unspecified (principal)
CPT/HCPCS: 36415; 80061

== ENCOUNTER → 2021-06-16 11:39 | Outpatient (CLI) | payer MEDICARE, OTHER, SELFPAY ==
[2018-07-31 15:48] VITALS: BMI 27.1
[2021-06-16 12:42] LABS: Hemoglobin A1C% w Est Avg Glu 7.9 % (4.0-6.0)
[2021-06-16 13:16] LABS: Alanine Aminotransferase 22 IU/L (<50); Albumin 4.6 g/dL (3.5-5.0); Albumin Globulin Ratio 1.8 (1.0-2.8); Alkaline Phosphatase 101 U/L (38-126); Aspartate Aminotransferase 46 IU/L (17-59); BUN Creatinine Ratio 19.1 (6-22); Blood Urea Nitrogen 26 mg/dL (9-20); Calcium 9.3 mg/dL (8.4-10.2); Carbon Dioxide 28 mmol/L (22-32); Chloride 103 mmol/L (98-107); Estimated Glomerular Filt Rate 53 mL/min (>60); Globulin 2.6 g/dL (1.7-4.1); Glucose 213 mg/dL (80-110); HEMOLYSIS < 15 (0-50); Potassium 4.1 mmol/L (3.4-5.1); Sodium 141 mmol/L (137-145); Total Protein 7.2 g/dL (6.3-8.2)
== END ==
PROVIDERS: Family Provider Internal Medicine; PCP Internal Medicine; Referring Provider Internal Medicine; Visit Provider Internal Medicine
DX: E11.9 Type 2 diabetes mellitus without complications (principal); E78.2 Mixed hyperlipidemia; I10 Essential (primary) hypertension
CPT/HCPCS: 36415; 80053; 83036

== ENCOUNTER 2021-07-10 16:40 | Inpatient (IN) | payer MEDICARE, OTHER, SELFPAY ==
[2018-07-31 15:48] VITALS: BMI 27.1
[2021-07-10] VITALS (10 sets, daily range): BP systolic 160–202; BP diastolic 73–91; PULSE 69–86; RESP 16; TEMP 36.9; O2SAT 95–98; BMI 32.5
--- NOTE | 2021-07-10 16:59 | ED_ITS ---
HPI - Allergic Reaction <Edwardo Coello DO - Last Filed: 07/15/21 01:43> General Chief complaint: Allergic Reaction Stated complaint: Allergic Reaction Time Seen by Provider: 07/10/21 16:47 History of Present Illness HPI narrative: 81-year-old male former smoker with history of diabetes, hypertension, hyperlipidemia, coronary artery disease, polymyalgia rheumatica presents by EMS for evaluation of a sore throat, difficulty swallowing and blisters on his anter ior chest which have developed over the past few days. He has no fever or chills. He has got no runny nose, cough, chest pain or shortness of breath. He has had no nausea, vomiting or diarrhea. 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 He has been on methotrexate in the past but this is at a different dosing regimen. He has no change in bowel habits or urinary complaints. Related Data Home Medications Medication Instructions Recorded Confirmed aspirin 81 mg tablet,delayed 81 mg PO DAILY 09/09/18 07/11/21 release (Adult Low Dose Aspirin) carvedilol 25 mg tablet 25 mg PO BID #60 tab 09/09/18 07/11/21 ticagrelor 90 mg tablet (Brilinta) 90 mg PO BID 09/17/19 07/11/21 vitamin B complex (B 1 tab PO DAILY 09/24/19 07/11/21 Complex-Vitamin B12) acetaminophen 325 mg tablet 650 mg PO BID PRN 08/17/20 07/11/21 (Tylenol) cilostazol 100 mg tablet 100 mg PO BID 08/17/20 07/11/21 isosorbide dinitrate 20 mg tablet 20 mg PO BID 08/17/20 07/11/21 rosuvastatin 20 mg tablet 20 mg PO DAILY 08/17/20 07/11/21 Brilinta 90 mg PO BID 12/09/20 07/12/21 blood-glucose sensor (Dexcom G6 #3 ea 06/26/21 07/11/21 Sensor) blood-glucose transmitter (Dexcom #1 ea 06/26/21 07/11/21 G6 Transmitter) pioglitazone 30 mg tablet 30 mg PO DAILY 07/11/21 07/11/21 semaglutide (Ozempic) See Rx Instructions .ROUTE .COMPLEX 07/12/21 07/12/21 Previous Rx's Medication Instructions Recorded metformin 1,000 mg tablet 1,000 mg PO BID #180 tab 03/17/20 sertraline 100 mg tablet 100 mg PO DAILY #90 tab 11/25/20 famotidine 20 mg tablet 20 mg PO BID #180 tab 11/28/20 tamsulosin 0.4 mg capsule (Flomax) 0.4 mg PO BID #180 tab 01/23/21 glipizide 10 mg tablet 10 mg PO DAILY #90 tab 02/21/21 hydrochlorothiazide 12.5 mg tablet 12.5 mg PO BID #180 tab 02/28/21 finasteride 5 mg tablet 5 mg PO DAILY #90 tab 04/14/21 potassium chloride 20 mEq 20 meq PO DAILY #90 tab 04/27/21 tablet,extended release Allergies Allergy/AdvReac Type Severity Reaction Status Date / Time clavulanic acid Allergy Severe Rash/Hives Verified 07/10/21 09:02 [From Augmentin] - internal reaction clopidogrel [From Plavix] Allergy Severe Hives. Verified 07/10/21 09:02 methotrexate Allergy Severe Blister Verified 07/14/21 18:26 Penicillins Allergy Intermediate HIVES Verified 07/10/21 09:02 amoxicillin AdvReac Intermediate Hives Verified 07/10/21 09:02 [id number]-[id number] Reductase AdvReac Intermediate fatigue, Verified 07/10/21 09:02 Inhibitor extreme [Tizwhzx-Otl-Qfp Reductase Inhibitor] Review of Systems <Edwardo Coello DO - Last Filed: 07/15/21 01:43> Review of Systems Narrative: GENERAL: See HPI HEENT: See HPI RESPIRATORY: See HPI. CARDIOVASCULAR: Denies chest pain, palpitations, orthopnea, edema, GASTROINTESTINAL: See HPI : Denies dysuria, frequency, incontinence, hematuria, urinary retention. MUSCULOSKELETAL: denies weakness, joint pain, or bony pain SKIN: Denies rash, skin lesions, or other NEUROLOGIC: Denies weakness, headache, numbness, change in speech, confusion, seizures, incoordination. PSYCHIATRIC: No concerning psychosocial issues. 12 point review of systems is negative except for those stated above Patient History <Edwardo Coello DO - Last Filed: 07/15/21 01:43> Medical History Benign prostatic hyperplasia with urinary obstruction (03/25/15) BPH w urinary obs/LUTS Chronic back pain (1989) Coronary artery disease involving [place] coronary artery of [place] heart without angina pectoris (1995) Depression Diabetes Essential hypertension Family history of prostate cancer Femur fracture (1965) Fracture (1951) Gilbert's syndrome Hayfever (1999) Hepatitis A (1963) HLD (hyperlipidemia) Incomplete bladder emptying Melanoma (1987) Mild claudication Mixed hyperlipidemia Peripheral vascular disease (2009) Polymyalgia rheumatica (08/30/15) Primary osteoarthritis of both hips (08/30/15) Recurrent falls Shoulder pain (2011) Spinal stenosis Tinnitus Type 2 diabetes mellitus without complication (06/20/15) Urge urinary incontinence Surgical History History of appendectomy History of coronary artery stent placement History of orthopedic surgery (1965) Status post appendectomy (1956) Status post coronary artery bypass graft (1995) Family History Father Colon cancer Prostate enlargement Bladder cancer History of hip surgery Pneumonia History of prostate surgery Mother Diabetes mellitus Heart disease Hypertension High cholesterol Osteoporosis History of cataract surgery H/O heart bypass surgery Arthritis Grandfather Arthritis Prostate cancer Colon cancer Deaf Legally blind Grandmother Diabetes mellitus Hypertension Angina pectoris Heart disease Osteoporosis Social History marital status: number of children: 0 household members: spouse lives independently: Yes caregiver/support person: No housing: house pets and animals: Yes education level: other occupational status: other 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/hoahaoism: None travel history: other leisure activities: other Smoking Status: Former smoker Tobacco: How many years used: 20 Smokeless tobacco user: other quit status: quit date established second hand exposure: No alcohol intake: current substance use type: does not use and marijuana Smoking Status: Former smoker alcohol intake frequency: 3 or more drinks per day Substance Use Type: does not use Exam <Edwardo Coello DO - Last Filed: 07/15/21 01:43> Narrative Exam Narrative: GENERAL: [81] year old patient appears stated age. Well-developed patient, in mild distress. HEAD: Atraumatic. Normocephalic. EYES: Pupils equal round and reactive. Extraocular motions intact. No scleral icterus. No injection or drainage. ENT: Nose without bleeding, purulent drainage. Posterior pharynx erythematous with multiple small fluid-filled blisters, no edema, airway patent, managing s ecretions NECK: Trachea midline. Non tender CARDIOVASCULAR: Regular rate and rhythm without murmurs, gallops, or rubs. RESPIRATORY: Clear to auscultation. Breath sounds equal bilaterally. No wheezes, rales, or rhonchi. GASTROINTESTINAL: Abdomen soft, non-tender, nondistended. EXTREMITIES: No edema or joint tenderness. BACK: Nontender without deformity or crepitance. No flank tenderness. NEURO: AOx3. SKIN: Few small clear fluid-filled blisters lateral to neck on upper shoulders Initial Vital Signs Initial Vital Signs: Vital Signs Temperature 98.4 F 07/10/21 16:44 Pulse Rate 77 07/10/21 16:44 Respiratory Rate 16 07/10/21 16:44 Blood Pressure 171/73 H 07/10/21 16:44 Pulse Oximetry 97 07/10/21 16:44 <Nurys Bethea MD - Last Filed: 07/16/21 18:06> Initial Vital Signs Initial Vital Signs: Vital Signs Temperature 98.4 F 07/10/21 16:44 Pulse Rate 77 07/10/21 16:44 Respiratory Rate 16 07/10/21 16:44 Blood Pressure 171/73 H 07/10/21 16:44 Pulse Oximetry 97 07/10/21 16:44 <Lise Cruz DO - Last Filed: 07/11/21 17:55> Initial Vital Signs Initial Vital Signs: Vital Signs Temperature 98.4 F 07/10/21 16:44 Pulse Rate 77 07/10/21 16:44 Respiratory Rate 16 07/10/21 16:44 Blood Pressure 171/73 H 07/10/21 16:44 Pulse Oximetry 97 07/10/21 16:44 Course <Edwardo Coello DO - Last Filed: 07/15/21 01:43> Orders Ordered: Bisacodyl (Bisacodyl 10 Mg Supp) 10 mg WV DAILY PRN PRN Reason: Constipation Carvedilol (Carvedilol 12.5 Mg Tablet) 25 mg PO BID [facility] Last Admin: 07/16/21 10:46 Dose: Not Given Documented by: Admin: 07/15/21 20:55 Dose: Not Given Documented by: [email or web address] Admin: 07/15/21 09:00 Dose: Not Given Documented by: MARY ELLEN Admin: 07/14/21 21:30 Dose: Not Given Documented by: Admin: 07/14/21 09:09 Dose: Not Given Documented by: Admin: 07/13/21 21:17 Dose: Not Given Documented by: Admin: 07/13/21 08:24 Dose: Not Given Documented by: Admin: 07/12/21 20:31 Dose: Not Given Documented by: Admin: 07/12/21 10:49 Dose: Not Given Documented by: Admin: 07/12/21 07:32 Dose: Not Given Documented by: Admin: 07/11/21 14:00 Dose: Not Given Documented by: RAFA Lidocaine HCl 30 ml/ Al Hydrox /Mg Hydrox/Simethicone 30 ml/Nystatin 3,000,000 unit 0 ml MM Q2HR MARY Last Admin: 07/16/21 17:32 Dose: 10 ml Documented by: Admin: 07/16/21 15:45 Dose: 10 ml Documented by: Admin: 07/16/21 14:00 Dose: Not Given Documented by: Admin: 07/16/21 11:59 Dose: Not Given Documented by: Admin: 07/16/21 10:34 Dose: 10 ml Documented by: Admin: 07/16/21 06:36 Dose: 10 ml Documented by: [email or web address] Admin: 07/16/21 05:03 Dose: 10 ml Documented by: [email or web address] Admin: 07/16/21 04:06 Dose: Not Given Documented by: [email or web address] Admin: 07/16/21 01:50 Dose: 10 ml Documented by: [email or web address] Admin: 07/15/21 23:06 Dose: 10 ml Documented by: [email or web address] Admin: 07/15/21 20:40 Dose: 10 ml Documented by: [email or web address] Admin: 07/15/21 20:39 Dose: Not Given Documented by: [email or web address] Admin: 07/15/21 17:29 Dose: Not Given Documented by: Admin: 07/15/21 15:00 Dose: Not Given Documented by: MARY ELLEN Admin: 07/15/21 13:08 Dose: Not Given Documented by: MARY ELLEN Admin: 07/15/21 11:11 Dose: 10 ml Documented by: MARY ELLEN Admin: 07/15/21 09:00 Dose: Not Given Documented by: MARY ELLEN Admin: 07/15/21 06:34 Dose: 10 ml Documented by: Admin: 07/15/21 04:21 Dose: 10 ml Documented by: Admin: 07/15/21 03:03 Dose: 10 ml Documented by: Admin: 07/15/21 01:09 Dose: 10 ml Documented by: Admin: 07/15/21 00:10 Dose: Not Given Documented by: Admin: 07/14/21 21:31 Dose: Not Given Documented by: Admin: 07/14/21 21:23 Dose: Not Given Documented by: Admin: 07/14/21 17:16 Dose: 10 ml Documented by: Admin: 07/14/21 15:00 Dose: Not Given Documented by: Admin: 07/14/21 13:00 Dose: Not Given Documented by: Admin: 07/14/21 12:52 Dose: Not Given Documented by: Admin: 07/14/21 09:09 Dose: 10 ml Documented by: Admin: 07/14/21 05:49 Dose: 10 ml Documented by: Admin: 07/14/21 04:59 Dose: Not Given Documented by: Admin: 07/14/21 02:33 Dose: 10 ml Documented by: Admin: 07/14/21 01:42 Dose: Not Given Documented by: Admin: 07/13/21 22:51 Dose: 10 ml Documented by: Admin: 07/13/21 21:04 Dose: Not Given Documented by: Admin: 07/13/21 19:30 Dose: 10 ml Documented by: Admin: 07/13/21 16:51 Dose: 10 ml Documented by: Admin: 07/13/21 15:13 Dose: 10 ml Documented by: Admin: 07/13/21 12:14 Dose: 1 ml Documented by: Admin: 07/13/21 11:57 Dose: Not Given Documented by: Admin: 07/13/21 10:00 Dose: 10 ml Documented by: Admin: 07/13/21 08:21 Dose: 10 ml Documented by: Admin: 07/13/21 04:49 Dose: 10 ml Documented by: Admin: 07/13/21 02:29 Dose: 10 ml Documented by: Admin: 07/12/21 23:26 Dose: 10 ml Documented by: Admin: 07/12/21 22:47 Dose: Not Given Documented by: Admin: 07/12/21 20:32 Dose: Not Given Documented by: Admin: 07/12/21 19:25 Dose: Not Given Documented by: Admin: 07/12/21 17:31 Dose: Not Given Documented by: Admin: 07/12/21 15:47 Dose: Not Given Documented by: Admin: 07/12/21 12:55 Dose: Not Given Documented by: Admin: 07/12/21 12:38 Dose: 10 ml Documented by: Admin: 07/12/21 09:18 Dose: 10 ml Documented by: Admin: 07/12/21 06:22 Dose: Not Given Documented by: Admin: 07/12/21 04:07 Dose: 30 ml Documented by: Admin: 07/12/21 03:25 Dose: 30 ml Documented by: Admin: 07/12/21 00:38 Dose: 30 ml Documented by: Admin: 07/11/21 23:01 Dose: 30 ml Documented by: Admin: 07/11/21 20:48 Dose: 15 ml Documented by: Admin: 07/11/21 20:48 Dose: 30 ml Documented by: Admin: 07/11/21 18:54 Dose: 30 ml Documented by: Admin: 07/11/21 15:59 Dose: 10 ml Documented by: Admin: 07/11/21 13:51 Dose: 10 ml Documented by: Admin: 07/11/21 10:30 Dose: 10 ml Documented by: Admin: 07/11/21 09:09 Dose: Not Given Documented by: Admin: 07/11/21 09:08 Dose: 10 ml Documented by: Admin: 07/11/21 05:02 Dose: Not Given Documented by: Admin: 07/11/21 04:38 Dose: Not Given Documented by: GAURAV Dexamethasone (Dexamethasone 4 Mg/Ml Vial) 4 mg IV DAILY MARY Last Admin: 07/16/21 10:33 Dose: 4 mg Documented by: Admin: 07/15/21 10:30 Dose: Not Given Documented by: MARY ELLEN Hydromorphone HCl (Hydromorphone 0.5 Mg Inj) 0.5 mg IV Q2H PRN PRN Reason: Pain, Moderate (4-6) Last Admin: 07/16/21 10:58 Dose: 0.5 mg Documented by: Admin: 07/15/21 20:43 Dose: 0.5 mg Documented by: JUAN DAVID Admin: 07/15/21 06:41 Dose: 0.5 mg Documented by: Admin: 07/15/21 04:21 Dose: 0.5 mg Documented by: Admin: 07/15/21 01:26 Dose: 0.5 mg Documented by: Admin: 07/14/21 12:49 Dose: 0.5 mg Documented by: Admin: 07/14/21 09:12 Dose: 0.5 mg Documented by: Admin: 07/14/21 05:59 Dose: 0.5 mg Documented by: Admin: 07/13/21 22:54 Dose: 0.5 mg Documented by: Admin: 07/13/21 16:50 Dose: 0.5 mg Documented by: Admin: 07/13/21 10:51 Dose: 0.5 mg Documented by: Admin: 07/13/21 04:52 Dose: 0.5 mg Documented by: Admin: 07/12/21 23:32 Dose: 0.5 mg Documented by: Admin: 07/12/21 17:33 Dose: 0.5 mg Documented by: Admin: 07/12/21 15:41 Dose: 0.5 mg Documented by: Admin: 07/12/21 12:37 Dose: 0.5 mg Documented by: Admin: 07/12/21 10:08 Dose: 0.5 mg Documented by: DOMINIC Dextrose (D10w) 250 mls @ 999 mls/hr IV PRN PRN PRN Reason: Hypoglycemia Lactated Ringer's (Lactated Ringers) 1,000 mls @ 100 mls/hr IV CONT MARY Last Admin: 07/16/21 13:30 Dose: 100 mls/hr Documented by: Infusion: 07/16/21 13:16 Dose: 100 mls/hr Documented by: Admin: 07/16/21 03:16 Dose: 100 mls/hr Documented by: Infusion: 07/15/21 23:38 Dose: 100 mls/hr Documented by: Admin: 07/15/21 13:38 Dose: 100 mls/hr Documented by: MARY ELLEN Infusion: 07/15/21 11:17 Dose: 100 mls/hr Documented by: MARY ELLEN Admin: 07/15/21 01:17 Dose: 100 mls/hr Documented by: Infusion: 07/15/21 01:17 Dose: 100 mls/hr Documented by: Admin: 07/14/21 17:28 Dose: 100 mls/hr Documented by: Infusion: 07/14/21 15:50 Dose: 100 mls/hr Documented by: Infusion: 07/14/21 05:50 Dose: 100 mls/hr Documented by: Admin: 07/14/21 05:50 Dose: 100 mls/hr Documented by: Infusion: 07/14/21 04:58 Dose: 100 mls/hr Documented by: Admin: 07/13/21 18:58 Dose: 100 mls/hr Documented by: Infusion: 07/13/21 18:56 Dose: 100 mls/hr Documented by: Admin: 07/13/21 08:28 Dose: 100 mls/hr Documented by: Infusion: 07/13/21 08:18 Dose: 100 mls/hr Documented by: Infusion: 07/12/21 22:18 Dose: 100 mls/hr Documented by: Admin: 07/12/21 22:18 Dose: 100 mls/hr Documented by: Infusion: 07/12/21 21:07 Dose: 100 mls/hr Documented by: Admin: 07/12/21 11:07 Dose: 100 mls/hr Documented by: DOMINIC Insulin Human Lispro (Insulin Lispro 100 Unit/Ml 3ml Vial) 0 unit [facility] MARY; Protocol Last Admin: 07/16/21 17:30 Dose: 3 unit Documented by: ADARSH Fariaigned by: JAKE Admin: 07/16/21 11:59 Dose: Not Given Documented by: Admin: 07/16/21 10:45 Dose: Not Given Documented by: Admin: 07/15/21 21:04 Dose: Not Given Documented by: JUAN DAVID Admin: 07/15/21 17:19 Dose: 1 unit Documented by: MARY ELLEN Ayoub by: JAKE Admin: 07/15/21 13:11 Dose: 1 unit Documented by: MARY ELLEN Fariaigned by: JAKE Admin: 07/15/21 11:07 Dose: 1 unit Documented by: MARY ELLEN Ayoub by: JAKE Admin: 07/14/21 21:14 Dose: Not Given Documented by: Admin: 07/14/21 17:08 Dose: 3 unit Documented by: CARMELITA Fariaigned by: DOMINIC Admin: 07/14/21 12:50 Dose: 3 unit Documented by: CARMELITA Fariaigned by: DOMINIC Admin: 07/14/21 09:10 Dose: 1 unit Documented by: DOMINIC Fariaigned by: ACRMELITA Admin: 07/13/21 21:17 Dose: Not Given Documented by: Admin: 07/13/21 16:50 Dose: Not Given Documented by: Admin: 07/13/21 12:13 Dose: 3 unit Documented by: CEZAR Fariaigned by: DOMINIC Admin: 07/13/21 08:24 Dose: Not Given Documented by: Admin: 07/12/21 21:19 Dose: Not Given Documented by: Admin: 07/12/21 17:32 Dose: 1 unit Documented by: DOMINIC Faraiigned by: CARMELITA Admin: 07/12/21 12:37 Dose: 3 unit Documented by: DOMINIC Ayoub by: CARMELITA Admin: 07/12/21 09:17 Dose: 5 unit Documented by: DOMINIC Cosigned by: CARMELITA Admin: 07/11/21 20:57 Dose: 3 unit Documented by: LEANNA Cosigned by: BRIANA Admin: 07/11/21 16:48 Dose: 5 unit Documented by: RAFA Cosigned by: EBLOMQ Admin: 07/11/21 14:48 Dose: 7 unit Documented by: RAFA Cosigned by: ZACK Isosorbide Dinitrate (Isosorbide Dinitrate 10 Mg Tablet) 20 mg PO TID [facility] Last Admin: 07/16/21 15:47 Dose: Not Given Documented by: Admin: 07/16/21 10:46 Dose: Not Given Documented by: Admin: 07/15/21 22:58 Dose: Not Given Documented by: JUAN DAVID Admin: 07/15/21 15:20 Dose: Not Given Documented by: MARY ELLEN Admin: 07/15/21 09:00 Dose: Not Given Documented by: MARY ELLEN Admin: 07/14/21 21:30 Dose: Not Given Documented by: Admin: 07/14/21 15:00 Dose: Not Given Documented by: Admin: 07/14/21 09:09 Dose: Not Given Documented by: Admin: 07/13/21 21:17 Dose: Not Given Documented by: Admin: 07/13/21 15:35 Dose: Not Given Documented by: Admin: 07/13/21 10:45 Dose: Not Given Documented by: Admin: 07/12/21 20:32 Dose: Not Given Documented by: Admin: 07/12/21 16:00 Dose: Not Given Documented by: Admin: 07/12/21 10:49 Dose: Not Given Documented by: Admin: 07/11/21 20:57 Dose: 20 mg Documented by: Admin: 07/11/21 14:00 Dose: Not Given Documented by: RAFA Metoprolol Tartrate (Metoprolol Tartrate 5 Mg/5 Ml Inj) 5 mg IV Q6H [facility] Last Admin: 07/16/21 17:30 Dose: 5 mg Documented by: Admin: 07/16/21 10:33 Dose: 5 mg Documented by: Admin: 07/16/21 03:16 Dose: 5 mg Documented by: JUAN DAVID Admin: 07/15/21 20:55 Dose: 5 mg Documented by: JUAN DAVID Admin: 07/15/21 16:45 Dose: 5 mg Documented by: MARY ELLEN Admin: 07/15/21 11:06 Dose: 5 mg Documented by: MARY ELLEN Admin: 07/15/21 03:03 Dose: 5 mg Documented by: Admin: 07/14/21 21:23 Dose: 5 mg Documented by: Admin: 07/14/21 17:06 Dose: 5 mg Documented by: Admin: 07/14/21 09:15 Dose: 5 mg Documented by: Admin: 07/14/21 02:39 Dose: 5 mg Documented by: Admin: 07/13/21 21:01 Dose: 5 mg Documented by: Admin: 07/13/21 15:32 Dose: 5 mg Documented by: Admin: 07/13/21 08:34 Dose: 5 mg Documented by: Admin: 07/13/21 02:30 Dose: 5 mg Documented by: Admin: 07/12/21 20:31 Dose: 5 mg Documented by: Admin: 07/12/21 15:59 Dose: 5 mg Documented by: Admin: 07/12/21 11:07 Dose: 5 mg Documented by: Admin: 07/12/21 03:25 Dose: 5 mg Documented by: Admin: 07/11/21 20:56 Dose: 5 mg Documented by: Admin: 07/11/21 15:17 Dose: 5 mg Documented by: RAFA Naloxone HCl (Naloxone 0.4 Mg/Ml Vial) 0.2 mg IV Q2MIN PRN PRN Reason: Opiate Reversal Nitroglycerin (Nitroglycerin Oint 1 Inch/Gm Oint...G.) 0.5 inch TOP 0900,1500 MARY Last Admin: 07/16/21 15:45 Dose: 0.5 inch Documented by: Admin: 07/16/21 10:33 Dose: 0.5 inch Documented by: Admin: 07/15/21 17:20 Dose: 0.5 inch Documented by: MARY ELLEN Admin: 07/15/21 11:46 Dose: 0.5 inch Documented by: MARY ELLEN Admin: 07/14/21 17:06 Dose: 0.5 inch Documented by: Admin: 07/14/21 09:16 Dose: 0.5 inch Documented by: Admin: 07/13/21 15:34 Dose: Not Given Documented by: Admin: 07/13/21 10:44 Dose: Not Given Documented by: Admin: 07/12/21 15:00 Dose: 0.5 inch Documented by: Admin: 07/12/21 09:19 Dose: 0.5 inch Documented by: DOMINIC Nystatin (Nystatin Susp 500,000 Unit/5 Ml Udc) 500,000 unit PO QID [facility] Last Admin: 07/16/21 17:31 Dose: 500,000 unit Documented by: Admin: 07/16/21 14:00 Dose: Not Given Documented by: Admin: 07/16/21 10:34 Dose: 500,000 unit Documented by: Admin: 07/15/21 21:11 Dose: Not Given Documented by: JUAN DAVID Admin: 07/15/21 17:29 Dose: Not Given Documented by: MARY ELLEN Admin: 07/15/21 11:06 Dose: 500,000 unit Documented by: MARY ELLEN Admin: 07/15/21 09:00 Dose: Not Given Documented by: MARY ELLEN Admin: 07/14/21 21:30 Dose: Not Given Documented by: Admin: 07/14/21 17:19 Dose: 500,000 unit Documented by: Admin: 07/14/21 13:00 Dose: Not Given Documented by: Admin: 07/14/21 09:09 Dose: Not Given Documented by: Admin: 07/13/21 21:18 Dose: 500,000 unit Documented by: Admin: 07/13/21 16:57 Dose: Not Given Documented by: Admin: 07/13/21 14:04 Dose: Not Given Documented by: Admin: 07/13/21 10:44 Dose: Not Given Documented by: CEZAR Tamsulosin HCl (Tamsulosin 0.4 Mg Capsule) 0.4 mg PO BID [facility] Last Admin: 07/16/21 10:46 Dose: Not Given Documented by: Admin: 07/15/21 22:59 Dose: Not Given Documented by: JUAN DAVID Admin: 07/15/21 09:00 Dose: Not Given Documented by: MARY ELLEN Admin: 07/14/21 21:33 Dose: Not Given Documented by: Admin: 07/14/21 09:09 Dose: Not Given Documented by: Admin: 07/13/21 21:18 Dose: Not Given Documented by: Admin: 07/13/21 10:42 Dose: Not Given Documented by: Admin: 07/12/21 20:32 Dose: Not Given Documented by: Admin: 07/12/21 11:06 Dose: Not Given Documented by: Admin: 07/12/21 07:34 Dose: Not Given Documented by: Admin: 07/11/21 13:47 Dose: Not Given Documented by: RAFA Discontinued Medications Al Hydrox/Mg Hydrox/Simethicone 20 ml/ Lidocaine HCl 15 ml 0 ml PO NOW ONE Stop: 07/10/21 20:07 Last Admin: 07/10/21 20:17 Dose: 20 ml Documented by: BRIGIDO Al Hydrox/Mg Hydrox/Simethicone 20 ml/ Lidocaine HCl 15 ml 0 ml PO NOW ONE Stop: 07/11/21 04:54 Last Admin: 07/11/21 05:02 Dose: 35 ml Documented by: GAURAV Dexamethasone (Dexamethasone 10 Mg/Ml Vial) 10 mg IV NOW ONE Stop: 07/11/21 01:21 Last Admin: 07/11/21 01:37 Dose: 10 mg Documented by: GAURAV Dexamethasone (Dexamethasone 10 Mg/Ml Vial) 10 mg IV NOW ONE Stop: 07/11/21 10:23 Last Admin: 07/11/21 10:29 Dose: 10 mg Documented by: LIZ Dexamethasone (Dexamethasone 10 Mg/Ml Vial) 10 mg IV DAILY [facility] Last Admin: 07/12/21 09:00 Dose: Not Given Documented by: Admin: 07/11/21 14:51 Dose: 10 mg Documented by: RAFA Dexamethasone (Dexamethasone 10 Mg/Ml Vial) 4 mg IV DAILY [facility] Last Admin: 07/14/21 09:15 Dose: 4 mg Documented by: Admin: 07/13/21 08:23 Dose: 4 mg Documented by: CEZAR Diphenhydramine HCl (Diphenhydramine 50 Mg/Ml Vial) 25 mg IV NOW ONE Stop: 07/11/21 01:27 Last Admin: 07/11/21 01:37 Dose: 25 mg Documented by: GAURAV Hydromorphone HCl (Hydromorphone 0.5 Mg Inj) 0.5 mg IV NOW ONE Stop: 07/11/21 01:27 Last Admin: 07/11/21 01:36 Dose: 0.5 mg Documented by: GAURAV Hydromorphone HCl (Hydromorphone 0.5 Mg Inj) 0.5 mg IV NOW ONE Stop: 07/11/21 08:08 Last Admin: 07/11/21 08:28 Dose: 0.5 mg Documented by: SAUL Sodium Chloride (Normal Saline 0.9%) 500 mls @ 1,000 mls/hr IV BOLUS ONE Stop: 07/10/21 17:31 Last Infusion: 07/10/21 18:03 Dose: 0 mls/hr Documented by: Admin: 07/10/21 17:23 Dose: 1,000 mls/hr Documented by: BRIGIDO Potassium Chloride/Dextrose/Sod Cl (Dextrose 5%-0.45%Ns W/Kcl 20meq) 1,000 mls @ 125 mls/hr IV CONT MARY Last Admin: 07/12/21 03:29 Dose: 125 mls/hr Documented by: Infusion: 07/12/21 03:29 Dose: 0 mls/hr Documented by: Infusion: 07/11/21 15:17 Dose: 0 mls/hr Documented by: Admin: 07/11/21 10:30 Dose: 125 mls/hr Documented by: Infusion: 07/11/21 09:36 Dose: 125 mls/hr Documented by: Admin: 07/11/21 01:36 Dose: 125 mls/hr Documented by: GAURAV POTASSIUM CHLORIDE IN WATER (Potassium Cl 10 Meq/100 Ml Kayley) 10 meq in 100 mls @ 100 mls/hr IV Q1H MARY Stop: 07/11/21 19:46 Last Admin: 07/11/21 23:45 Dose: Not Given Documented by: Admin: 07/11/21 23:45 Dose: Not Given Documented by: Admin: 07/11/21 23:45 Dose: Not Given Documented by: Admin: 07/11/21 23:44 Dose: Not Given Documented by: Admin: 07/11/21 17:25 Dose: 100 mls/hr Documented by: Infusion: 07/11/21 17:25 Dose: 100 mls/hr Documented by: Admin: 07/11/21 15:30 Dose: 100 mls/hr Documented by: RAFA POTASSIUM CHLORIDE IN WATER (Potassium Cl 10 Meq/100 Ml Kayley) 10 meq in 100 mls @ 100 mls/hr IV Q1H MARY Stop: 07/11/21 23:59 Last Admin: 07/12/21 00:38 Dose: 100 mls/hr Documented by: Infusion: 07/12/21 00:38 Dose: 100 mls/hr Documented by: Admin: 07/12/21 00:35 Dose: 100 mls/hr Documented by: Infusion: 07/11/21 22:40 Dose: 100 mls/hr Documented by: Admin: 07/11/21 21:40 Dose: 100 mls/hr Documented by: Infusion: 07/11/21 20:49 Dose: 100 mls/hr Documented by: Admin: 07/11/21 19:49 Dose: 100 mls/hr Documented by: LEANNA POTASSIUM CHLORIDE IN WATER (Potassium Cl 10 Meq/100 Ml Kayley) 10 meq in 100 mls @ 100 mls/hr IV Q1H MARY Stop: 07/15/21 13:14 Last Admin: 07/15/21 13:38 Dose: 100 mls/hr Documented by: MARY ELLEN Infusion: 07/15/21 13:34 Dose: 100 mls/hr Documented by: MARY ELLEN Admin: 07/15/21 12:34 Dose: 100 mls/hr Documented by: MARY ELLEN Potassium Chloride (Potassium Chloride 20 Meq Tab) 40 meq PO NOW ONE Stop: 07/12/21 09:01 Last Admin: 07/12/21 10:49 Dose: Not Given Documented by: CARMELITA Potassium Chloride (Potassium Chloride 20 Meq Tab) 40 meq PO NOW ONE Stop: 07/16/21 08:01 Last Admin: 07/16/21 10:45 Dose: Not Given Documented by: ADARSH Sucralfate (Sucralfate 1 Gm/10 Ml Oral Susp) 1 gm PO NOW ONE Stop: 07/10/21 17:04 Last Admin: 07/10/21 17:22 Dose: 1 gm Documented by: BRIGIDO Consultations Consultation #1: discussed with PCP regarding admission here, unable to keep given complexity of history and requests transfer to facility with GI and cardiology. Time: 18:03 Vital Signs Vital signs: Vital Signs - 8 hr 07/11/21 10:00 07/11/21 10:30 Pulse Rate 72 73 Pulse Oximetry 93 94 <Nurys Bethea MD - Last Filed: 07/16/21 18:06> Orders Ordered: Bisacodyl (Bisacodyl 10 Mg Supp) 10 mg W[place] DAILY PRN PRN Reason: Constipation Carvedilol (Carvedilol 12.5 Mg Tablet) 25 mg PO BID [facility] Last Admin: 07/16/21 10:46 Dose: Not Given Documented by: Admin: 07/15/21 20:55 Dose: Not Given Documented by: JUAN DAVID Admin: 07/15/21 09:00 Dose: Not Given Documented by: MARY ELLEN Admin: 07/14/21 21:30 Dose: Not Given Documented by: Admin: 07/14/21 09:09 Dose: Not Given Documented by: Admin: 07/13/21 21:17 Dose: Not Given Documented by: Admin: 07/13/21 08:24 Dose: Not Given Documented by: Admin: 07/12/21 20:31 Dose: Not Given Documented by: Admin: 07/12/21 10:49 Dose: Not Given Documented by: Admin: 07/12/21 07:32 Dose: Not Given Documented by: Admin: 07/11/21 14:00 Dose: Not Given Documented by: RAFA Lidocaine HCl 30 ml/ Al Hydrox /Mg Hydrox/Simethicone 30 ml/Nystatin 3,000,000 unit 0 ml MM Q2HR [facility] Last Admin: 07/16/21 17:32 Dose: 10 ml Documented by: Admin: 07/16/21 15:45 Dose: 10 ml Documented by: Admin: 07/16/21 14:00 Dose: Not Given Documented by: Admin: 07/16/21 11:59 Dose: Not Given Documented by: Admin: 07/16/21 10:34 Dose: 10 ml Documented by: Admin: 07/16/21 06:36 Dose: 10 ml Documented by: [email or web address] Admin: 07/16/21 05:03 Dose: 10 ml Documented by: [email or web address] Admin: 07/16/21 04:06 Dose: Not Given Documented by: [email or web address] Admin: 07/16/21 01:50 Dose: 10 ml Documented by: [email or web address] Admin: 07/15/21 23:06 Dose: 10 ml Documented by: [email or web address] Admin: 07/15/21 20:40 Dose: 10 ml Documented by: [email or web address] Admin: 07/15/21 20:39 Dose: Not Given Documented by: [email or web address] Admin: 07/15/21 17:29 Dose: Not Given Documented by: MARY ELLNE Admin: 07/15/21 15:00 Dose: Not Given Documented by: Admin: 07/15/21 13:08 Dose: Not Given Documented by: MARY ELLEN Admin: 07/15/21 11:11 Dose: 10 ml Documented by: Admin: 07/15/21 09:00 Dose: Not Given Documented by: Admin: 07/15/21 06:34 Dose: 10 ml Documented by: Admin: 07/15/21 04:21 Dose: 10 ml Documented by: Admin: 07/15/21 03:03 Dose: 10 ml Documented by: Admin: 07/15/21 01:09 Dose: 10 ml Documented by: Admin: 07/15/21 00:10 Dose: Not Given Documented by: Admin: 07/14/21 21:31 Dose: Not Given Documented by: Admin: 07/14/21 21:23 Dose: Not Given Documented by: Admin: 07/14/21 17:16 Dose: 10 ml Documented by: Admin: 07/14/21 15:00 Dose: Not Given Documented by: Admin: 07/14/21 13:00 Dose: Not Given Documented by: Admin: 07/14/21 12:52 Dose: Not Given Documented by: Admin: 07/14/21 09:09 Dose: 10 ml Documented by: Admin: 07/14/21 05:49 Dose: 10 ml Documented by: Admin: 07/14/21 04:59 Dose: Not Given Documented by: Admin: 07/14/21 02:33 Dose: 10 ml Documented by: Admin: 07/14/21 01:42 Dose: Not Given Documented by: Admin: 07/13/21 22:51 Dose: 10 ml Documented by: Admin: 07/13/21 21:04 Dose: Not Given Documented by: Admin: 07/13/21 19:30 Dose: 10 ml Documented by: Admin: 07/13/21 16:51 Dose: 10 ml Documented by: Admin: 07/13/21 15:13 Dose: 10 ml Documented by: Admin: 07/13/21 12:14 Dose: 1 ml Documented by: Admin: 07/13/21 11:57 Dose: Not Given Documented by: Admin: 07/13/21 10:00 Dose: 10 ml Documented by: Admin: 07/13/21 08:21 Dose: 10 ml Documented by: Admin: 07/13/21 04:49 Dose: 10 ml Documented by: Admin: 07/13/21 02:29 Dose: 10 ml Documented by: Admin: 07/12/21 23:26 Dose: 10 ml Documented by: Admin: 07/12/21 22:47 Dose: Not Given Documented by: Admin: 07/12/21 20:32 Dose: Not Given Documented by: Admin: 07/12/21 19:25 Dose: Not Given Documented by: Admin: 07/12/21 17:31 Dose: Not Given Documented by: Admin: 07/12/21 15:47 Dose: Not Given Documented by: Admin: 07/12/21 12:55 Dose: Not Given Documented by: Admin: 07/12/21 12:38 Dose: 10 ml Documented by: Admin: 07/12/21 09:18 Dose: 10 ml Documented by: Admin: 07/12/21 06:22 Dose: Not Given Documented by: Admin: 07/12/21 04:07 Dose: 30 ml Documented by: Admin: 07/12/21 03:25 Dose: 30 ml Documented by: Admin: 07/12/21 00:38 Dose: 30 ml Documented by: Admin: 07/11/21 23:01 Dose: 30 ml Documented by: Admin: 07/11/21 20:48 Dose: 15 ml Documented by: Admin: 07/11/21 20:48 Dose: 30 ml Documented by: Admin: 07/11/21 18:54 Dose: 30 ml Documented by: Admin: 07/11/21 15:59 Dose: 10 ml Documented by: Admin: 07/11/21 13:51 Dose: 10 ml Documented by: Admin: 07/11/21 10:30 Dose: 10 ml Documented by: Admin: 07/11/21 09:09 Dose: Not Given Documented by: Admin: 07/11/21 09:08 Dose: 10 ml Documented by: Admin: 07/11/21 05:02 Dose: Not Given Documented by: Admin: 07/11/21 04:38 Dose: Not Given Documented by: GAURAV Dexamethasone (Dexamethasone 4 Mg/Ml Vial) 4 mg IV DAILY MARY Last Admin: 07/16/21 10:33 Dose: 4 mg Documented by: Admin: 07/15/21 10:30 Dose: Not Given Documented by: MARY ELLEN Hydromorphone HCl (Hydromorphone 0.5 Mg Inj) 0.5 mg IV Q2H PRN PRN Reason: Pain, Moderate (4-6) Last Admin: 07/16/21 10:58 Dose: 0.5 mg Documented by: Admin: 07/15/21 20:43 Dose: 0.5 mg Documented by: JUAN DAVID Admin: 07/15/21 06:41 Dose: 0.5 mg Documented by: Admin: 07/15/21 04:21 Dose: 0.5 mg Documented by: Admin: 07/15/21 01:26 Dose: 0.5 mg Documented by: Admin: 07/14/21 12:49 Dose: 0.5 mg Documented by: Admin: 07/14/21 09:12 Dose: 0.5 mg Documented by: Admin: 07/14/21 05:59 Dose: 0.5 mg Documented by: Admin: 07/13/21 22:54 Dose: 0.5 mg Documented by: Admin: 07/13/21 16:50 Dose: 0.5 mg Documented by: Admin: 07/13/21 10:51 Dose: 0.5 mg Documented by: Admin: 07/13/21 04:52 Dose: 0.5 mg Documented by: Admin: 07/12/21 23:32 Dose: 0.5 mg Documented by: Admin: 07/12/21 17:33 Dose: 0.5 mg Documented by: Admin: 07/12/21 15:41 Dose: 0.5 mg Documented by: Admin: 07/12/21 12:37 Dose: 0.5 mg Documented by: Admin: 07/12/21 10:08 Dose: 0.5 mg Documented by: DOMINIC Dextrose (D10w) 250 mls @ 999 mls/hr IV PRN PRN PRN Reason: Hypoglycemia Lactated Ringer's (Lactated Ringers) 1,000 mls @ 100 mls/hr IV CONT MARY Last Admin: 07/16/21 13:30 Dose: 100 mls/hr Documented by: Infusion: 07/16/21 13:16 Dose: 100 mls/hr Documented by: Admin: 07/16/21 03:16 Dose: 100 mls/hr Documented by: [email or web address] Infusion: 07/15/21 23:38 Dose: 100 mls/hr Documented by: [email or web address] Admin: 07/15/21 13:38 Dose: 100 mls/hr Documented by: Infusion: 07/15/21 11:17 Dose: 100 mls/hr Documented by: MARY ELLEN Admin: 07/15/21 01:17 Dose: 100 mls/hr Documented by: Infusion: 07/15/21 01:17 Dose: 100 mls/hr Documented by: Admin: 07/14/21 17:28 Dose: 100 mls/hr Documented by: Infusion: 07/14/21 15:50 Dose: 100 mls/hr Documented by: Infusion: 07/14/21 05:50 Dose: 100 mls/hr Documented by: Admin: 07/14/21 05:50 Dose: 100 mls/hr Documented by: Infusion: 07/14/21 04:58 Dose: 100 mls/hr Documented by: Admin: 07/13/21 18:58 Dose: 100 mls/hr Documented by: Infusion: 07/13/21 18:56 Dose: 100 mls/hr Documented by: Admin: 07/13/21 08:28 Dose: 100 mls/hr Documented by: Infusion: 07/13/21 08:18 Dose: 100 mls/hr Documented by: Infusion: 07/12/21 22:18 Dose: 100 mls/hr Documented by: Admin: 07/12/21 22:18 Dose: 100 mls/hr Documented by: Infusion: 07/12/21 21:07 Dose: 100 mls/hr Documented by: Admin: 07/12/21 11:07 Dose: 100 mls/hr Documented by: DOMINIC Insulin Human Lispro (Insulin Lispro 100 Unit/Ml 3ml Vial) 0 unit SUBCUT [facility]; Protocol Last Admin: 07/16/21 17:30 Dose: 3 unit Documented by: ADARSH Cosigned by: JAKE Admin: 07/16/21 11:59 Dose: Not Given Documented by: Admin: 07/16/21 10:45 Dose: Not Given Documented by: Admin: 07/15/21 21:04 Dose: Not Given Documented by: JUAN DAVID Admin: 07/15/21 17:19 Dose: 1 unit Documented by: MARY ELLEN Cosigned by: JAKE Admin: 07/15/21 13:11 Dose: 1 unit Documented by: MARY ELLEN Cosigned by: JAKE Admin: 07/15/21 11:07 Dose: 1 unit Documented by: MARY ELLEN Cosigned by: JAKE Admin: 07/14/21 21:14 Dose: Not Given Documented by: Admin: 07/14/21 17:08 Dose: 3 unit Documented by: CARMELITA Fariaigned by: DOMINIC Admin: 07/14/21 12:50 Dose: 3 unit Documented by: CARMELITA Fariaigned by: DOMINIC Admin: 07/14/21 09:10 Dose: 1 unit Documented by: DOMINIC Fariaigned by: CARMELITA Admin: 07/13/21 21:17 Dose: Not Given Documented by: Admin: 07/13/21 16:50 Dose: Not Given Documented by: Admin: 07/13/21 12:13 Dose: 3 unit Documented by: CEZAR Cosigned by: DOMINIC Admin: 07/13/21 08:24 Dose: Not Given Documented by: Admin: 07/12/21 21:19 Dose: Not Given Documented by: Admin: 07/12/21 17:32 Dose: 1 unit Documented by: DOMINIC Cosigned by: CARMELITA Admin: 07/12/21 12:37 Dose: 3 unit Documented by: DOMINIC Cosigned by: CARMELITA Admin: 07/12/21 09:17 Dose: 5 unit Documented by: DOMINIC Cosigned by: CARMELITA Admin: 07/11/21 20:57 Dose: 3 unit Documented by: LEANNA Cosigned by: BRIANA Admin: 07/11/21 16:48 Dose: 5 unit Documented by: RAFA Cosigned by: EBLOMQ Admin: 07/11/21 14:48 Dose: 7 unit Documented by: RAFA Cosigned by: ZACK Isosorbide Dinitrate (Isosorbide Dinitrate 10 Mg Tablet) 20 mg PO TID MARY Last Admin: 07/16/21 15:47 Dose: Not Given Documented by: Admin: 07/16/21 10:46 Dose: Not Given Documented by: Admin: 07/15/21 22:58 Dose: Not Given Documented by: Admin: 07/15/21 15:20 Dose: Not Given Documented by: MARY ELLEN Admin: 07/15/21 09:00 Dose: Not Given Documented by: MARY ELLEN Admin: 07/14/21 21:30 Dose: Not Given Documented by: Admin: 07/14/21 15:00 Dose: Not Given Documented by: Admin: 07/14/21 09:09 Dose: Not Given Documented by: Admin: 07/13/21 21:17 Dose: Not Given Documented by: Admin: 07/13/21 15:35 Dose: Not Given Documented by: Admin: 07/13/21 10:45 Dose: Not Given Documented by: Admin: 07/12/21 20:32 Dose: Not Given Documented by: Admin: 07/12/21 16:00 Dose: Not Given Documented by: Admin: 07/12/21 10:49 Dose: Not Given Documented by: Admin: 07/11/21 20:57 Dose: 20 mg Documented by: Admin: 07/11/21 14:00 Dose: Not Given Documented by: RAFA Metoprolol Tartrate (Metoprolol Tartrate 5 Mg/5 Ml Inj) 5 mg IV Q6H MARY Pepe Admin: 07/16/21 17:30 Dose: 5 mg Documented by: Admin: 07/16/21 10:33 Dose: 5 mg Documented by: Admin: 07/16/21 03:16 Dose: 5 mg Documented by: Admin: 07/15/21 20:55 Dose: 5 mg Documented by: Admin: 07/15/21 16:45 Dose: 5 mg Documented by: MARY ELLEN Admin: 07/15/21 11:06 Dose: 5 mg Documented by: MARY ELLEN Admin: 07/15/21 03:03 Dose: 5 mg Documented by: Admin: 07/14/21 21:23 Dose: 5 mg Documented by: Admin: 07/14/21 17:06 Dose: 5 mg Documented by: Admin: 07/14/21 09:15 Dose: 5 mg Documented by: Admin: 07/14/21 02:39 Dose: 5 mg Documented by: Admin: 07/13/21 21:01 Dose: 5 mg Documented by: Admin: 07/13/21 15:32 Dose: 5 mg Documented by: Admin: 07/13/21 08:34 Dose: 5 mg Documented by: Admin: 07/13/21 02:30 Dose: 5 mg Documented by: Admin: 07/12/21 20:31 Dose: 5 mg Documented by: Admin: 07/12/21 15:59 Dose: 5 mg Documented by: Admin: 07/12/21 11:07 Dose: 5 mg Documented by: Admin: 07/12/21 03:25 Dose: 5 mg Documented by: Admin: 07/11/21 20:56 Dose: 5 mg Documented by: Admin: 07/11/21 15:17 Dose: 5 mg Documented by: RAFA Naloxone HCl (Naloxone 0.4 Mg/Ml Vial) 0.2 mg IV Q2MIN PRN PRN Reason: Opiate Reversal Nitroglycerin (Nitroglycerin Oint 1 Inch/Gm Oint...G.) 0.5 inch TOP 0900,1500 [facility] Admin: 07/16/21 15:45 Dose: 0.5 inch Documented by: Admin: 07/16/21 10:33 Dose: 0.5 inch Documented by: Admin: 07/15/21 17:20 Dose: 0.5 inch Documented by: MARY ELLEN Admin: 07/15/21 11:46 Dose: 0.5 inch Documented by: MARY ELLEN Admin: 07/14/21 17:06 Dose: 0.5 inch Documented by: Admin: 07/14/21 09:16 Dose: 0.5 inch Documented by: Admin: 07/13/21 15:34 Dose: Not Given Documented by: Admin: 07/13/21 10:44 Dose: Not Given Documented by: Admin: 07/12/21 15:00 Dose: 0.5 inch Documented by: Admin: 07/12/21 09:19 Dose: 0.5 inch Documented by: DOMINIC Nystatin (Nystatin Susp 500,000 Unit/5 Ml Udc) 500,000 unit PO QID [facility] Last Admin: 07/16/21 17:31 Dose: 500,000 unit Documented by: Admin: 07/16/21 14:00 Dose: Not Given Documented by: Admin: 07/16/21 10:34 Dose: 500,000 unit Documented by: Admin: 07/15/21 21:11 Dose: Not Given Documented by: JUAN DAVID Admin: 07/15/21 17:29 Dose: Not Given Documented by: MARY ELLEN Admin: 07/15/21 11:06 Dose: 500,000 unit Documented by: MARY ELLEN Admin: 07/15/21 09:00 Dose: Not Given Documented by: MARY ELLEN Admin: 07/14/21 21:30 Dose: Not Given Documented by: Admin: 07/14/21 17:19 Dose: 500,000 unit Documented by: Admin: 07/14/21 13:00 Dose: Not Given Documented by: Admin: 07/14/21 09:09 Dose: Not Given Documented by: Admin: 07/13/21 21:18 Dose: 500,000 unit Documented by: Admin: 07/13/21 16:57 Dose: Not Given Documented by: Admin: 07/13/21 14:04 Dose: Not Given Documented by: Admin: 07/13/21 10:44 Dose: Not Given Documented by: CEZAR Tamsulosin HCl (Tamsulosin 0.4 Mg Capsule) 0.4 mg PO BID MARY Last Admin: 07/16/21 10:46 Dose: Not Given Documented by: Admin: 07/15/21 22:59 Dose: Not Given Documented by: Admin: 07/15/21 09:00 Dose: Not Given Documented by: MARY ELLEN Admin: 07/14/21 21:33 Dose: Not Given Documented by: Admin: 07/14/21 09:09 Dose: Not Given Documented by: Admin: 07/13/21 21:18 Dose: Not Given Documented by: Admin: 07/13/21 10:42 Dose: Not Given Documented by: Admin: 07/12/21 20:32 Dose: Not Given Documented by: Admin: 07/12/21 11:06 Dose: Not Given Documented by: Admin: 07/12/21 07:34 Dose: Not Given Documented by: Admin: 07/11/21 13:47 Dose: Not Given Documented by: RAFA Discontinued Medications Al Hydrox/Mg Hydrox/Simethicone 20 ml/ Lidocaine HCl 15 ml 0 ml PO NOW ONE Stop: 07/10/21 20:07 Last Admin: 07/10/21 20:17 Dose: 20 ml Documented by: BRIGIDO Urias Hydrox/Mg Hydrox/Simethicone 20 ml/ Lidocaine HCl 15 ml 0 ml PO NOW ONE Stop: 07/11/21 04:54 Last Admin: 07/11/21 05:02 Dose: 35 ml Documented by: GAURAV Dexamethasone (Dexamethasone 10 Mg/Ml Vial) 10 mg IV NOW ONE Stop: 07/11/21 01:21 Last Admin: 07/11/21 01:37 Dose: 10 mg Documented by: GAURAV Dexamethasone (Dexamethasone 10 Mg/Ml Vial) 10 mg IV NOW ONE Stop: 07/11/21 10:23 Last Admin: 07/11/21 10:29 Dose: 10 mg Documented by: LIZ Dexamethasone (Dexamethasone 10 Mg/Ml Vial) 10 mg IV DAILY [facility] Last Admin: 07/12/21 09:00 Dose: Not Given Documented by: Admin: 07/11/21 14:51 Dose: 10 mg Documented by: RAFA Dexamethasone (Dexamethasone 10 Mg/Ml Vial) 4 mg IV DAILY [facility] Last Admin: 07/14/21 09:15 Dose: 4 mg Documented by: Admin: 07/13/21 08:23 Dose: 4 mg Documented by: CEZAR Diphenhydramine HCl (Diphenhydramine 50 Mg/Ml Vial) 25 mg IV NOW ONE Stop: 07/11/21 01:27 Last Admin: 07/11/21 01:37 Dose: 25 mg Documented by: GAURAV Hydromorphone HCl (Hydromorphone 0.5 Mg Inj) 0.5 mg IV NOW ONE Stop: 07/11/21 01:27 Last Admin: 07/11/21 01:36 Dose: 0.5 mg Documented by: GAURAV Hydromorphone HCl (Hydromorphone 0.5 Mg Inj) 0.5 mg IV NOW ONE Stop: 07/11/21 08:08 Last Admin: 07/11/21 08:28 Dose: 0.5 mg Documented by: SAUL Sodium Chloride (Normal Saline 0.9%) 500 mls @ 1,000 mls/hr IV BOLUS ONE Stop: 07/10/21 17:31 Last Infusion: 07/10/21 18:03 Dose: 0 mls/hr Documented by: Admin: 07/10/21 17:23 Dose: 1,000 mls/hr Documented by: BRIGIDO Potassium Chloride/Dextrose/Sod Cl (Dextrose 5%-0.45%Ns W/Kcl 20meq) 1,000 mls @ 125 mls/hr IV CONT MARY Last Admin: 07/12/21 03:29 Dose: 125 mls/hr Documented by: Infusion: 07/12/21 03:29 Dose: 0 mls/hr Documented by: Infusion: 07/11/21 15:17 Dose: 0 mls/hr Documented by: Admin: 07/11/21 10:30 Dose: 125 mls/hr Documented by: Infusion: 07/11/21 09:36 Dose: 125 mls/hr Documented by: Admin: 07/11/21 01:36 Dose: 125 mls/hr Documented by: GAURAV POTASSIUM CHLORIDE IN WATER (Potassium Cl 10 Meq/100 Ml Kayley) 10 meq in 100 mls @ 100 mls/hr IV Q1H MARY Stop: 07/11/21 19:46 Last Admin: 07/11/21 23:45 Dose: Not Given Documented by: Admin: 07/11/21 23:45 Dose: Not Given Documented by: Admin: 07/11/21 23:45 Dose: Not Given Documented by: Admin: 07/11/21 23:44 Dose: Not Given Documented by: Admin: 07/11/21 17:25 Dose: 100 mls/hr Documented by: Infusion: 07/11/21 17:25 Dose: 100 mls/hr Documented by: Admin: 07/11/21 15:30 Dose: 100 mls/hr Documented by: RAFA POTASSIUM CHLORIDE IN WATER (Potassium Cl 10 Meq/100 Ml Kayley) 10 meq in 100 mls @ 100 mls/hr IV Q1H MARY Stop: 07/11/21 23:59 Last Admin: 07/12/21 00:38 Dose: 100 mls/hr Documented by: Infusion: 07/12/21 00:38 Dose: 100 mls/hr Documented by: Admin: 07/12/21 00:35 Dose: 100 mls/hr Documented by: Infusion: 07/11/21 22:40 Dose: 100 mls/hr Documented by: Admin: 07/11/21 21:40 Dose: 100 mls/hr Documented by: Infusion: 07/11/21 20:49 Dose: 100 mls/hr Documented by: Admin: 07/11/21 19:49 Dose: 100 mls/hr Documented by: LEANNA POTASSIUM CHLORIDE IN WATER (Potassium Cl 10 Meq/100 Ml Kayley) 10 meq in 100 mls @ 100 mls/hr IV Q1H MARY Stop: 07/15/21 13:14 Last Admin: 07/15/21 13:38 Dose: 100 mls/hr Documented by: MARY ELLEN Infusion: 07/15/21 13:34 Dose: 100 mls/hr Documented by: MARY ELLEN Admin: 07/15/21 12:34 Dose: 100 mls/hr Documented by: MARY ELLEN Potassium Chloride (Potassium Chloride 20 Meq Tab) 40 meq PO NOW ONE Stop: 07/12/21 09:01 Last Admin: 07/12/21 10:49 Dose: Not Given Documented by: CARMELITA Potassium Chloride (Potassium Chloride 20 Meq Tab) 40 meq PO NOW ONE Stop: 07/16/21 08:01 Last Admin: 07/16/21 10:45 Dose: Not Given Documented by: ADARSH Sucralfate (Sucralfate 1 Gm/10 Ml Oral Susp) 1 gm PO NOW ONE Stop: 07/10/21 17:04 Last Admin: 07/10/21 17:22 Dose: 1 gm Documented by: BRIGIDO Vital Signs Vital signs: Vital Signs - 8 hr 07/11/21 10:00 07/11/21 10:30 Pulse Rate 72 73 Pulse Oximetry 93 94 <Lise Cruz, DO - Last Filed: 07/11/21 17:55> Orders Ordered: Bisacodyl (Bisacodyl 10 Mg Supp) 10 mg [place] DAILY PRN PRN Reason: Constipation Carvedilol (Carvedilol 12.5 Mg Tablet) 25 mg PO BID [facility] Last Admin: 07/16/21 10:46 Dose: Not Given Documented by: Admin: 07/15/21 20:55 Dose: Not Given Documented by: JUAN DAVID Admin: 07/15/21 09:00 Dose: Not Given Documented by: Admin: 07/14/21 21:30 Dose: Not Given Documented by: Admin: 07/14/21 09:09 Dose: Not Given Documented by: Admin: 07/13/21 21:17 Dose: Not Given Documented by: Admin: 07/13/21 08:24 Dose: Not Given Documented by: Admin: 07/12/21 20:31 Dose: Not Given Documented by: Admin: 07/12/21 10:49 Dose: Not Given Documented by: Admin: 07/12/21 07:32 Dose: Not Given Documented by: Admin: 07/11/21 14:00 Dose: Not Given Documented by: RAFA Lidocaine HCl 30 ml/ Al Hydrox /Mg Hydrox/Simethicone 30 ml/Nystatin 3,000,000 unit 0 ml MM Q2HR MARY Last Admin: 07/16/21 17:32 Dose: 10 ml Documented by: Admin: 07/16/21 15:45 Dose: 10 ml Documented by: Admin: 07/16/21 14:00 Dose: Not Given Documented by: Admin: 07/16/21 11:59 Dose: Not Given Documented by: Admin: 07/16/21 10:34 Dose: 10 ml Documented by: Admin: 07/16/21 06:36 Dose: 10 ml Documented by: [email or web address] Admin: 07/16/21 05:03 Dose: 10 ml Documented by: [email or web address] Admin: 07/16/21 04:06 Dose: Not Given Documented by: [email or web address] Admin: 07/16/21 01:50 Dose: 10 ml Documented by: [email or web address] Admin: 07/15/21 23:06 Dose: 10 ml Documented by: [email or web address] Admin: 07/15/21 20:40 Dose: 10 ml Documented by: [email or web address] Admin: 07/15/21 20:39 Dose: Not Given Documented by: [email or web address] Admin: 07/15/21 17:29 Dose: Not Given Documented by: Admin: 07/15/21 15:00 Dose: Not Given Documented by: Admin: 07/15/21 13:08 Dose: Not Given Documented by: Admin: 07/15/21 11:11 Dose: 10 ml Documented by: MARY ELLEN Admin: 07/15/21 09:00 Dose: Not Given Documented by: MARY ELLEN Admin: 07/15/21 06:34 Dose: 10 ml Documented by: Admin: 07/15/21 04:21 Dose: 10 ml Documented by: Admin: 07/15/21 03:03 Dose: 10 ml Documented by: Admin: 07/15/21 01:09 Dose: 10 ml Documented by: Admin: 07/15/21 00:10 Dose: Not Given Documented by: Admin: 07/14/21 21:31 Dose: Not Given Documented by: Admin: 07/14/21 21:23 Dose: Not Given Documented by: Admin: 07/14/21 17:16 Dose: 10 ml Documented by: Admin: 07/14/21 15:00 Dose: Not Given Documented by: Admin: 07/14/21 13:00 Dose: Not Given Documented by: Admin: 07/14/21 12:52 Dose: Not Given Documented by: Admin: 07/14/21 09:09 Dose: 10 ml Documented by: Admin: 07/14/21 05:49 Dose: 10 ml Documented by: Admin: 07/14/21 04:59 Dose: Not Given Documented by: Admin: 07/14/21 02:33 Dose: 10 ml Documented by: Admin: 07/14/21 01:42 Dose: Not Given Documented by: RADHAFEBRONSON Admin: 07/13/21 22:51 Dose: 10 ml Documented by: Admin: 07/13/21 21:04 Dose: Not Given Documented by: RADHAFEBRONSON Admin: 07/13/21 19:30 Dose: 10 ml Documented by: Admin: 07/13/21 16:51 Dose: 10 ml Documented by: Admin: 07/13/21 15:13 Dose: 10 ml Documented by: Admin: 07/13/21 12:14 Dose: 1 ml Documented by: Admin: 07/13/21 11:57 Dose: Not Given Documented by: Admin: 07/13/21 10:00 Dose: 10 ml Documented by: Admin: 07/13/21 08:21 Dose: 10 ml Documented by: Admin: 07/13/21 04:49 Dose: 10 ml Documented by: Admin: 07/13/21 02:29 Dose: 10 ml Documented by: Admin: 07/12/21 23:26 Dose: 10 ml Documented by: Admin: 07/12/21 22:47 Dose: Not Given Documented by: Admin: 07/12/21 20:32 Dose: Not Given Documented by: Admin: 07/12/21 19:25 Dose: Not Given Documented by: Admin: 07/12/21 17:31 Dose: Not Given Documented by: Admin: 07/12/21 15:47 Dose: Not Given Documented by: Admin: 07/12/21 12:55 Dose: Not Given Documented by: Admin: 07/12/21 12:38 Dose: 10 ml Documented by: Admin: 07/12/21 09:18 Dose: 10 ml Documented by: Admin: 07/12/21 06:22 Dose: Not Given Documented by: Admin: 07/12/21 04:07 Dose: 30 ml Documented by: Admin: 07/12/21 03:25 Dose: 30 ml Documented by: Admin: 07/12/21 00:38 Dose: 30 ml Documented by: Admin: 07/11/21 23:01 Dose: 30 ml Documented by: Admin: 07/11/21 20:48 Dose: 15 ml Documented by: Admin: 07/11/21 20:48 Dose: 30 ml Documented by: Admin: 07/11/21 18:54 Dose: 30 ml Documented by: Admin: 07/11/21 15:59 Dose: 10 ml Documented by: Admin: 07/11/21 13:51 Dose: 10 ml Documented by: Admin: 07/11/21 10:30 Dose: 10 ml Documented by: Admin: 07/11/21 09:09 Dose: Not Given Documented by: Admin: 07/11/21 09:08 Dose: 10 ml Documented by: Admin: 07/11/21 05:02 Dose: Not Given Documented by: Admin: 07/11/21 04:38 Dose: Not Given Documented by: GAURAV Dexamethasone (Dexamethasone 4 Mg/Ml Vial) 4 mg IV DAILY MARY Last Admin: 07/16/21 10:33 Dose: 4 mg Documented by: Admin: 07/15/21 10:30 Dose: Not Given Documented by: MARY ELLEN Hydromorphone HCl (Hydromorphone 0.5 Mg Inj) 0.5 mg IV Q2H PRN PRN Reason: Pain, Moderate (4-6) Last Admin: 07/16/21 10:58 Dose: 0.5 mg Documented by: Admin: 07/15/21 20:43 Dose: 0.5 mg Documented by: JUAN DAVID Admin: 07/15/21 06:41 Dose: 0.5 mg Documented by: Admin: 07/15/21 04:21 Dose: 0.5 mg Documented by: Admin: 07/15/21 01:26 Dose: 0.5 mg Documented by: Admin: 07/14/21 12:49 Dose: 0.5 mg Documented by: Admin: 07/14/21 09:12 Dose: 0.5 mg Documented by: Admin: 07/14/21 05:59 Dose: 0.5 mg Documented by: Admin: 07/13/21 22:54 Dose: 0.5 mg Documented by: Admin: 07/13/21 16:50 Dose: 0.5 mg Documented by: Admin: 07/13/21 10:51 Dose: 0.5 mg Documented by: Admin: 07/13/21 04:52 Dose: 0.5 mg Documented by: Admin: 07/12/21 23:32 Dose: 0.5 mg Documented by: Admin: 07/12/21 17:33 Dose: 0.5 mg Documented by: Admin: 07/12/21 15:41 Dose: 0.5 mg Documented by: Admin: 07/12/21 12:37 Dose: 0.5 mg Documented by: Admin: 07/12/21 10:08 Dose: 0.5 mg Documented by: DOMINIC Dextrose (D10w) 250 mls @ 999 mls/hr IV PRN PRN PRN Reason: Hypoglycemia Lactated Ringer's (Lactated Ringers) 1,000 mls @ 100 mls/hr IV CONT MARY Last Admin: 07/16/21 13:30 Dose: 100 mls/hr Documented by: Infusion: 07/16/21 13:16 Dose: 100 mls/hr Documented by: Admin: 07/16/21 03:16 Dose: 100 mls/hr Documented by: Infusion: 07/15/21 23:38 Dose: 100 mls/hr Documented by: CTR.[email or web address] Admin: 07/15/21 13:38 Dose: 100 mls/hr Documented by: MARY ELLEN Infusion: 07/15/21 11:17 Dose: 100 mls/hr Documented by: MARY ELLEN Admin: 07/15/21 01:17 Dose: 100 mls/hr Documented by: Infusion: 07/15/21 01:17 Dose: 100 mls/hr Documented by: Admin: 07/14/21 17:28 Dose: 100 mls/hr Documented by: Infusion: 07/14/21 15:50 Dose: 100 mls/hr Documented by: Infusion: 07/14/21 05:50 Dose: 100 mls/hr Documented by: Admin: 07/14/21 05:50 Dose: 100 mls/hr Documented by: Infusion: 07/14/21 04:58 Dose: 100 mls/hr Documented by: Admin: 07/13/21 18:58 Dose: 100 mls/hr Documented by: Infusion: 07/13/21 18:56 Dose: 100 mls/hr Documented by: Admin: 07/13/21 08:28 Dose: 100 mls/hr Documented by: Infusion: 07/13/21 08:18 Dose: 100 mls/hr Documented by: Infusion: 07/12/21 22:18 Dose: 100 mls/hr Documented by: Admin: 07/12/21 22:18 Dose: 100 mls/hr Documented by: Infusion: 07/12/21 21:07 Dose: 100 mls/hr Documented by: Admin: 07/12/21 11:07 Dose: 100 mls/hr Documented by: DOMINIC Insulin Human Lispro (Insulin Lispro 100 Unit/Ml 3ml Vial) 0 unit SUBCUT ACHS S CH; Protocol Last Admin: 07/16/21 17:30 Dose: 3 unit Documented by: ADARSH Fariaigned by: JAKE Admin: 07/16/21 11:59 Dose: Not Given Documented by: Admin: 07/16/21 10:45 Dose: Not Given Documented by: Admin: 07/15/21 21:04 Dose: Not Given Documented by: JUAN DAVID Admin: 07/15/21 17:19 Dose: 1 unit Documented by: MARY ELLEN Fariaigned by: JAKE Admin: 07/15/21 13:11 Dose: 1 unit Documented by: MARY ELLEN Ayoub by: JAKE Admin: 07/15/21 11:07 Dose: 1 unit Documented by: MARY ELLEN Ayoub by: JAKE Admin: 07/14/21 21:14 Dose: Not Given Documented by: Admin: 07/14/21 17:08 Dose: 3 unit Documented by: CARMELITA Fariaigned by: DOMINIC Admin: 07/14/21 12:50 Dose: 3 unit Documented by: CARMELITA Fariaigned by: DOMINIC Admin: 07/14/21 09:10 Dose: 1 unit Documented by: DOMINIC Ayoub by: CARMELITA Admin: 07/13/21 21:17 Dose: Not Given Documented by: Admin: 07/13/21 16:50 Dose: Not Given Documented by: Admin: 07/13/21 12:13 Dose: 3 unit Documented by: CEZAR Fariaigned by: DOMINIC Admin: 07/13/21 08:24 Dose: Not Given Documented by: Admin: 07/12/21 21:19 Dose: Not Given Documented by: Admin: 07/12/21 17:32 Dose: 1 unit Documented by: DOMINIC Fariaigned by: CARMELITA Admin: 07/12/21 12:37 Dose: 3 unit Documented by: DOMINIC Fariaigned by: CARMELITA Admin: 07/12/21 09:17 Dose: 5 unit Documented by: DOMINIC Ayoub by: CARMELITA Admin: 07/11/21 20:57 Dose: 3 unit Documented by: LEANNA Cosigned by: BRIANA Admin: 07/11/21 16:48 Dose: 5 unit Documented by: RAFA Cosigned by: EBESTRELLAMQ Admin: 07/11/21 14:48 Dose: 7 unit Documented by: RAFA Cosigned by: ZACK Isosorbide Dinitrate (Isosorbide Dinitrate 10 Mg Tablet) 20 mg PO TID [facility] Last Admin: 07/16/21 15:47 Dose: Not Given Documented by: Admin: 07/16/21 10:46 Dose: Not Given Documented by: Admin: 07/15/21 22:58 Dose: Not Given Documented by: Admin: 07/15/21 15:20 Dose: Not Given Documented by: MARY ELLEN Admin: 07/15/21 09:00 Dose: Not Given Documented by: MARY ELLEN Admin: 07/14/21 21:30 Dose: Not Given Documented by: Admin: 07/14/21 15:00 Dose: Not Given Documented by: Admin: 07/14/21 09:09 Dose: Not Given Documented by: Admin: 07/13/21 21:17 Dose: Not Given Documented by: Admin: 07/13/21 15:35 Dose: Not Given Documented by: Admin: 07/13/21 10:45 Dose: Not Given Documented by: Admin: 07/12/21 20:32 Dose: Not Given Documented by: Admin: 07/12/21 16:00 Dose: Not Given Documented by: Admin: 07/12/21 10:49 Dose: Not Given Documented by: Admin: 07/11/21 20:57 Dose: 20 mg Documented by: Admin: 07/11/21 14:00 Dose: Not Given Documented by: RAFA Metoprolol Tartrate (Metoprolol Tartrate 5 Mg/5 Ml Inj) 5 mg IV Q6H [facility] Last Admin: 07/16/21 17:30 Dose: 5 mg Documented by: Admin: 07/16/21 10:33 Dose: 5 mg Documented by: Admin: 07/16/21 03:16 Dose: 5 mg Documented by: Admin: 07/15/21 20:55 Dose: 5 mg Documented by: JUAN DAVID Admin: 07/15/21 16:45 Dose: 5 mg Documented by: MARY ELLEN Admin: 07/15/21 11:06 Dose: 5 mg Documented by: MARY ELLEN Admin: 07/15/21 03:03 Dose: 5 mg Documented by: Admin: 07/14/21 21:23 Dose: 5 mg Documented by: Admin: 07/14/21 17:06 Dose: 5 mg Documented by: Admin: 07/14/21 09:15 Dose: 5 mg Documented by: Admin: 07/14/21 02:39 Dose: 5 mg Documented by: Admin: 07/13/21 21:01 Dose: 5 mg Documented by: Admin: 07/13/21 15:32 Dose: 5 mg Documented by: Admin: 07/13/21 08:34 Dose: 5 mg Documented by: Admin: 07/13/21 02:30 Dose: 5 mg Documented by: Admin: 07/12/21 20:31 Dose: 5 mg Documented by: Admin: 07/12/21 15:59 Dose: 5 mg Documented by: Admin: 07/12/21 11:07 Dose: 5 mg Documented by: Admin: 07/12/21 03:25 Dose: 5 mg Documented by: Admin: 07/11/21 20:56 Dose: 5 mg Documented by: Admin: 07/11/21 15:17 Dose: 5 mg Documented by: RAFA Naloxone HCl (Naloxone 0.4 Mg/Ml Vial) 0.2 mg IV Q2MIN PRN PRN Reason: Opiate Reversal Nitroglycerin (Nitroglycerin Oint 1 Inch/Gm Oint...G.) 0.5 inch TOP 0900,1500 MARY Last Admin: 07/16/21 15:45 Dose: 0.5 inch Documented by: Admin: 07/16/21 10:33 Dose: 0.5 inch Documented by: Admin: 07/15/21 17:20 Dose: 0.5 inch Documented by: MARY ELLEN Admin: 07/15/21 11:46 Dose: 0.5 inch Documented by: MARY ELLEN Admin: 07/14/21 17:06 Dose: 0.5 inch Documented by: Admin: 07/14/21 09:16 Dose: 0.5 inch Documented by: Admin: 07/13/21 15:34 Dose: Not Given Documented by: Admin: 07/13/21 10:44 Dose: Not Given Documented by: Admin: 07/12/21 15:00 Dose: 0.5 inch Documented by: Admin: 07/12/21 09:19 Dose: 0.5 inch Documented by: DOMINIC Nystatin (Nystatin Susp 500,000 Unit/5 Ml Udc) 500,000 unit PO QID [facility] Last Admin: 07/16/21 17:31 Dose: 500,000 unit Documented by: Admin: 07/16/21 14:00 Dose: Not Given Documented by: Admin: 07/16/21 10:34 Dose: 500,000 unit Documented by: Admin: 07/15/21 21:11 Dose: Not Given Documented by: [email or web address] Admin: 07/15/21 17:29 Dose: Not Given Documented by: MARY ELLEN Admin: 07/15/21 11:06 Dose: 500,000 unit Documented by: MARY ELLEN Admin: 07/15/21 09:00 Dose: Not Given Documented by: MARY ELLEN Admin: 07/14/21 21:30 Dose: Not Given Documented by: Admin: 07/14/21 17:19 Dose: 500,000 unit Documented by: Admin: 07/14/21 13:00 Dose: Not Given Documented by: Admin: 07/14/21 09:09 Dose: Not Given Documented by: Admin: 07/13/21 21:18 Dose: 500,000 unit Documented by: Admin: 07/13/21 16:57 Dose: Not Given Documented by: Admin: 07/13/21 14:04 Dose: Not Given Documented by: Admin: 07/13/21 10:44 Dose: Not Given Documented by: CEZAR Tamsulosin HCl (Tamsulosin 0.4 Mg Capsule) 0.4 mg PO BID [facility] Admin: 07/16/21 10:46 Dose: Not Given Documented by: Admin: 07/15/21 22:59 Dose: Not Given Documented by: [email or web address] Admin: 07/15/21 09:00 Dose: Not Given Documented by: MARY ELLEN Admin: 07/14/21 21:33 Dose: Not Given Documented by: Admin: 07/14/21 09:09 Dose: Not Given Documented by: Admin: 07/13/21 21:18 Dose: Not Given Documented by: Admin: 07/13/21 10:42 Dose: Not Given Documented by: Admin: 07/12/21 20:32 Dose: Not Given Documented by: Admin: 07/12/21 11:06 Dose: Not Given Documented by: Admin: 07/12/21 07:34 Dose: Not Given Documented by: Admin: 07/11/21 13:47 Dose: Not Given Documented by: RAFA Discontinued Medications Al Hydrox/Mg Hydrox/Simethicone 20 ml/ Lidocaine HCl 15 ml 0 ml PO NOW ONE Stop: 07/10/21 20:07 Last Admin: 07/10/21 20:17 Dose: 20 ml Documented by: BRIGIDO Al Hydrox/Mg Hydrox/Simethicone 20 ml/ Lidocaine HCl 15 ml 0 ml PO NOW ONE Stop: 07/11/21 04:54 Last Admin: 07/11/21 05:02 Dose: 35 ml Documented by: GAURAV Dexamethasone (Dexamethasone 10 Mg/Ml Vial) 10 mg IV NOW ONE Stop: 07/11/21 01:21 Last Admin: 07/11/21 01:37 Dose: 10 mg Documented by: GAURAV Dexamethasone (Dexamethasone 10 Mg/Ml Vial) 10 mg IV NOW ONE Stop: 07/11/21 10:23 Last Admin: 07/11/21 10:29 Dose: 10 mg Documented by: LIZ Dexamethasone (Dexamethasone 10 Mg/Ml Vial) 10 mg IV DAILY [facility] Last Admin: 07/12/21 09:00 Dose: Not Given Documented by: Admin: 07/11/21 14:51 Dose: 10 mg Documented by: RAFA Dexamethasone (Dexamethasone 10 Mg/Ml Vial) 4 mg IV DAILY [facility] Last Admin: 07/14/21 09:15 Dose: 4 mg Documented by: Admin: 07/13/21 08:23 Dose: 4 mg Documented by: CEZAR Diphenhydramine HCl (Diphenhydramine 50 Mg/Ml Vial) 25 mg IV NOW ONE Stop: 07/11/21 01:27 Last Admin: 07/11/21 01:37 Dose: 25 mg Documented by: GAURAV Hydromorphone HCl (Hydromorphone 0.5 Mg Inj) 0.5 mg IV NOW ONE Stop: 07/11/21 01:27 Last Admin: 07/11/21 01:36 Dose: 0.5 mg Documented by: GAURAV Hydromorphone HCl (Hydromorphone 0.5 Mg Inj) 0.5 mg IV NOW ONE Stop: 07/11/21 08:08 Last Admin: 07/11/21 08:28 Dose: 0.5 mg Documented by: SAUL Sodium Chloride (Normal Saline 0.9%) 500 mls @ 1,000 mls/hr IV BOLUS ONE Stop: 07/10/21 17:31 Last Infusion: 07/10/21 18:03 Dose: 0 mls/hr Documented by: Admin: 07/10/21 17:23 Dose: 1,000 mls/hr Documented by: BRIGIDO Potassium Chloride/Dextrose/Sod Cl (Dextrose 5%-0.45%Ns W/Kcl 20meq) 1,000 mls @ 125 mls/hr IV CONT MARY Last Admin: 07/12/21 03:29 Dose: 125 mls/hr Documented by: Infusion: 07/12/21 03:29 Dose: 0 mls/hr Documented by: Infusion: 07/11/21 15:17 Dose: 0 mls/hr Documented by: Admin: 07/11/21 10:30 Dose: 125 mls/hr Documented by: Infusion: 07/11/21 09:36 Dose: 125 mls/hr Documented by: Admin: 07/11/21 01:36 Dose: 125 mls/hr Documented by: GAURAV POTASSIUM CHLORIDE IN WATER (Potassium Cl 10 Meq/100 Ml Kayley) 10 meq in 100 mls @ 100 mls/hr IV Q1H MARY Stop: 07/11/21 19:46 Last Admin: 07/11/21 23:45 Dose: Not Given Documented by: Admin: 07/11/21 23:45 Dose: Not Given Documented by: Admin: 07/11/21 23:45 Dose: Not Given Documented by: Admin: 07/11/21 23:44 Dose: Not Given Documented by: Admin: 07/11/21 17:25 Dose: 100 mls/hr Documented by: Infusion: 07/11/21 17:25 Dose: 100 mls/hr Documented by: Admin: 07/11/21 15:30 Dose: 100 mls/hr Documented by: RAFA POTASSIUM CHLORIDE IN WATER (Potassium Cl 10 Meq/100 Ml Kayley) 10 meq in 100 mls @ 100 mls/hr IV Q1H MARY Stop: 07/11/21 23:59 Last Admin: 07/12/21 00:38 Dose: 100 mls/hr Documented by: Infusion: 07/12/21 00:38 Dose: 100 mls/hr Documented by: Admin: 07/12/21 00:35 Dose: 100 mls/hr Documented by: Infusion: 07/11/21 22:40 Dose: 100 mls/hr Documented by: Admin: 07/11/21 21:40 Dose: 100 mls/hr Documented by: Infusion: 07/11/21 20:49 Dose: 100 mls/hr Documented by: Admin: 07/11/21 19:49 Dose: 100 mls/hr Documented by: LEANNA POTASSIUM CHLORIDE IN WATER (Potassium Cl 10 Meq/100 Ml Kayley) 10 meq in 100 mls @ 100 mls/hr IV Q1H MARY Stop: 07/15/21 13:14 Last Admin: 07/15/21 13:38 Dose: 100 mls/hr Documented by: MARY ELLEN Infusion: 07/15/21 13:34 Dose: 100 mls/hr Documented by: MARY ELLEN Admin: 07/15/21 12:34 Dose: 100 mls/hr Documented by: MARY ELLEN Potassium Chloride (Potassium Chloride 20 Meq Tab) 40 meq PO NOW ONE Stop: 07/12/21 09:01 Last Admin: 07/12/21 10:49 Dose: Not Given Documented by: CARMELITA Potassium Chloride (Potassium Chloride 20 Meq Tab) 40 meq PO NOW ONE Stop: 07/16/21 08:01 Last Admin: 07/16/21 10:45 Dose: Not Given Documented by: LVAZQUE Sucralfate (Sucralfate 1 Gm/10 Ml Oral Susp) 1 gm PO NOW ONE Stop: 07/10/21 17:04 Last Admin: 07/10/21 17:22 Dose: 1 gm Documented by: BRIGIDO Vital Signs Vital signs: Vital Signs - 8 hr 07/11/21 10:00 07/11/21 10:30 Pulse Rate 72 73 Pulse Oximetry 93 94 MDM - Allergic Reaction <Edawrdo Coello DO - Last Filed: 07/15/21 01:43> Lab Data Result diagrams: 07/11/21 05:45 07/16/21 05:33 Labs: Lab Results 07/10/21 07/10/21 07/10/21 Range/Units 16:42 16:42 16:42 WBC 3.7 L (4.5-11.0) X10^3/uL RBC 4.08 L (4.5-5.9) X10^6/uL Hgb 11.4 L (13.5-17.5) g/dL Hct 33.7 L (41-53) % MCV 82.6 (80-100) fL MCH 27.9 (26-34) PG MCHC 33.8 (30-36) % RDW 15.9 H (11.6-14.8) % Plt Count 231 (150-400) X10^3/uL Neut % (Auto) 77.3 H (50-75) % Lymph % (Auto) 18.7 L (25-40) % [place] % (Auto) 1.5 L (3-14) % Eos % (Auto) 2.3 (2-4) % Baso % (Auto) 0.2 (0-2) % Neut # (Auto) 2900 (1507-5274) /uL Lymph # (Auto) 700 L (9346-6436) /uL [place] # (Auto) 100 (0-900) /uL Eos # (Auto) 100 (0-450) /uL Baso # (Auto) 0 (0-100) /uL Sodium 137 (137-145) mmol/L Potassium 3.2 L (3.4-5.1) mmol/L Chloride 96 L (98-107) mmol/L Carbon Dioxide 31 (22-32) mmol/L BUN 28 H (9-20) mg/dL Creatinine 1.40 H (0.66-1.25) mg/dL Estimated GFR 51 L (>60) mL/min BUN/Creatinine Ratio 20.0 (6-22) Glucose 149 H (80-110) mg/dL Calcium 9.6 (8.4-10.2) mg/dL Magnesium (1.6-2.3) mg/dL Total Bilirubin 1.6 H (0.2-1.3) mg/dL Conjugated Bilirubin (0.0-0.3) md/dL Unconjugated Bilirubin (0.0-1.1) mg/dL AST 92 H (17-59) IU/L ALT 69 H (<50) IU/L Alkaline Phosphatase 108 (38-126) U/L Total Protein 8.5 H (6.3-8.2) g/dL Albumin 4.7 (3.5-5.0) g/dL Globulin 3.8 (1.7-4.1) g/dL Albumin/Globulin Ratio 1.2 (1.0-2.8) Urine Color Urine Appearance Urine pH (4.5-8.0) Ur Specific Vaugh[place] (1.000-1.035) Urine Protein (Negative) Urine Glucose (UA) (Negative) g/dL Urine Ketones (NEGATIVE) Urine Occult Blood (Negative) Urine Nitrate (Negative) Urine Bilirubin (NEGATIVE) Urine Urobilinogen (0.2) E.U./dL Ur Leukocyte Esterase (NEGATIVE) Urine RBC (0-5/HPF) Urine WBC (0-5/HPF) Amorphous Sediment Urine Bacteria (None) Ur Culture Indicated? SARS-CoV-2 (PCR) (Negative) HSV I&II IgM (IFA) <0.91 (0.00-0.90) Ratio 07/10/21 07/10/21 07/11/21 Range/Units 17:30 19:27 05:45 WBC 2.8 L (4.5-11.0) X10^3/uL RBC 3.92 L (4.5-5.9) X10^6/uL Hgb 10.9 L (13.5-17.5) g/dL Hct 32.6 L (41-53) % MCV 83.2 (80-100) fL MCH 27.7 (26-34) PG MCHC 33.3 (30-36) % RDW 15.7 H (11.6-14.8) % Plt Count 196 (150-400) X10^3/uL Neut % (Auto) 89.2 H (50-75) % Lymph % (Auto) 9.8 L (25-40) % [place] % (Auto) 0.7 L (3-14) % Eos % (Auto) 0.2 L (2-4) % Baso % (Auto) 0.1 (0-2) % Neut # (Auto) 2500 (2878-4936) /uL Lymph # (Auto) 300 L (1257-0392) /uL [place] # (Auto) 0 (0-900) /uL Eos # (Auto) 0 (0-450) /uL Baso # (Auto) 0 (0-100) /uL Sodium (137-145) mmol/L Potassium (3.4-5.1) mmol/L Chloride (98-107) mmol/L Carbon Dioxide (22-32) mmol/L BUN (9-20) mg/dL Creatinine (0.66-1.25) mg/dL Estimated GFR (>60) mL/min BUN/Creatinine Ratio (6-22) Glucose (80-110) mg/dL Calcium (8.4-10.2) mg/dL Magnesium (1.6-2.3) mg/dL Total Bilirubin (0.2-1.3) mg/dL Conjugated Bilirubin (0.0-0.3) md/dL Unconjugated Bilirubin (0.0-1.1) mg/dL AST (17-59) IU/L ALT (<50) IU/L Alkaline Phosphatase (38-126) U/L Total Protein (6.3-8.2) g/dL Albumin (3.5-5.0) g/dL Globulin (1.7-4.1) g/dL Albumin/Globulin Ratio (1.0-2.8) Urine Color Yellow Urine Appearance Clear Urine pH 5.5 (4.5-8.0) Ur Specific [place] 1.025 (1.000-1.035) Urine Protein 2+ H (Negative) Urine Glucose (UA) Negative (Negative) g/dL Urine Ketones Negative (NEGATIVE) Urine Occult Blood 1+ H (Negative) Urine Nitrate Negative (Negative) Urine Bilirubin Negative (NEGATIVE) Urine Urobilinogen 0.2 (0.2) E.U./dL Ur Leukocyte Esterase Negative (NEGATIVE) Urine RBC 1-5/hpf (0-5/HPF) Urine WBC None seen (0-5/HPF) Amorphous Sediment 1+ Urine Bacteria None seen (None) Ur Culture Indicated? Cult not indicated SARS-CoV-2 (PCR) Negative (Negative) HSV I&II IgM (IFA) (0.00-0.90) Ratio 07/11/21 07/12/21 07/13/21 Range/Units 05:45 04:38 06:26 WBC (4.5-11.0) X10^3/uL RBC (4.5-5.9) X10^6/uL Hgb (13.5-17.5) g/dL Hct (41-53) % MCV (80-100) fL MCH (26-34) PG MCHC (30-36) % RDW (11.6-14.8) % Plt Count (150-400) X10^3/uL Neut % (Auto) (50-75) % Lymph % (Auto) (25-40) % [place] % (Auto) (3-14) % Eos % (Auto) (2-4) % Baso % (Auto) (0-2) % Neut # (Auto) (7754-8520) /uL Lymph # (Auto) (0158-1299) /uL [place] # (Auto) (0-900) /uL Eos # (Auto) (0-450) /uL Baso # (Auto) (0-100) /uL Sodium 132 L 133 L (137-145) mmol/L Potassium 3.2 L 3.5 (3.4-5.1) mmol/L Chloride 97 L 100 (98-107) mmol/L Carbon Dioxide 26 23 (22-32) mmol/L BUN 23 H 29 H (9-20) mg/dL Creatinine 1.28 H 1.28 H (0.66-1.25) mg/dL Estimated GFR 57 L 57 L (>60) mL/min BUN/Creatinine Ratio 18.0 22.7 H (6-22) Glucose 281 H D 290 H (80-110) mg/dL Calcium 8.9 8.6 (8.4-10.2) mg/dL Magnesium (1.6-2.3) mg/dL Total Bilirubin 1.5 H 1.0 1.0 (0.2-1.3) mg/dL Conjugated Bilirubin 0.0 0.0 (0.0-0.3) md/dL Unconjugated Bilirubin 0.7 0.7 (0.0-1.1) mg/dL AST 94 H 69 H 70 H (17-59) IU/L ALT 79 H 68 H 64 H (<50) IU/L Alkaline Phosphatase 105 95 83 (38-126) U/L Total Protein 7.9 7.3 6.7 (6.3-8.2) g/dL Albumin 4.4 4.1 3.8 (3.5-5.0) g/dL Globulin 3.5 3.2 2.9 (1.7-4.1) g/dL Albumin/Globulin Ratio 1.3 1.3 1.3 (1.0-2.8) Urine Color Urine Appearance Urine pH (4.5-8.0) Ur Specific Vaughn (1.000-1.035) Urine Protein (Negative) Urine Glucose (UA) (Negative) g/dL Urine Ketones (NEGATIVE) Urine Occult Blood (Negative) Urine Nitrate (Negative) Urine Bilirubin (NEGATIVE) Urine Urobilinogen (0.2) E.U./dL Ur Leukocyte Esterase (NEGATIVE) Urine RBC (0-5/HPF) Urine WBC (0-5/HPF) Amorphous Sediment Urine Bacteria (None) Ur Culture Indicated? SARS-CoV-2 (PCR) (Negative) HSV I&II IgM (IFA) (0.00-0.90) Ratio 07/13/21 07/13/21 Range/Units 06:26 06:26 WBC (4.5-11.0) X10^3/uL RBC (4.5-5.9) X10^6/uL Hgb (13.5-17.5) g/dL Hct (41-53) % MCV (80-100) fL MCH (26-34) PG MCHC (30-36) % RDW (11.6-14.8) % Plt Count (150-400) X10^3/uL Neut % (Auto) (50-75) % Lymph % (Auto) (25-40) % [place] % (Auto) (3-14) % Eos % (Auto) (2-4) % Baso % (Auto) (0-2) % Neut # (Auto) (0738-3663) /uL Lymph # (Auto) (5577-8127) /uL [place] # (Auto) (0-900) /uL Eos # (Auto) (0-450) /uL Baso # (Auto) (0-100) /uL Sodium 137 (137-145) mmol/L Potassium 3.5 (3.4-5.1) mmol/L Chloride 103 (98-107) mmol/L Carbon Dioxide 27 (22-32) mmol/L BUN 34 H (9-20) mg/dL Creatinine 1.45 H (0.66-1.25) mg/dL Estimated GFR 49 L (>60) mL/min BUN/Creatinine Ratio 23.4 H (6-22) Glucose 188 H D (80-110) mg/dL Calcium 8.6 (8.4-10.2) mg/dL Magnesium 2.0 (1.6-2.3) mg/dL Total Bilirubin (0.2-1.3) mg/dL Conjugated Bilirubin (0.0-0.3) md/dL Unconjugated Bilirubin (0.0-1.1) mg/dL AST (17-59) IU/L ALT (<50) IU/L Alkaline Phosphatase (38-126) U/L Total Protein (6.3-8.2) g/dL Albumin (3.5-5.0) g/dL Globulin (1.7-4.1) g/dL Albumin/Globulin Ratio (1.0-2.8) Urine Color Urine Appearance Urine pH (4.5-8.0) Ur Specific [place] (1.000-1.035) Urine Protein (Negative) Urine Glucose (UA) (Negative) g/dL Urine Ketones (NEGATIVE) Urine Occult Blood (Negative) Urine Nitrate (Negative) Urine Bilirubin (NEGATIVE) Urine Urobilinogen (0.2) E.U./dL Ur Leukocyte Esterase (NEGATIVE) Urine RBC (0-5/HPF) Urine WBC (0-5/HPF) Amorphous Sediment Urine Bacteria (None) Ur Culture Indicated? SARS-CoV-2 (PCR) (Negative) HSV I&II IgM (IFA) (0.00-0.90) Ratio Point of Care Testing Rapid Strep A Negative Glucose POC 272 <Nurys Bethea MD - Last Filed: 07/16/21 18:06> Lab Data Labs: Lab Results 07/10/21 07/10/21 07/10/21 Range/Units 16:42 16:42 16:42 WBC 3.7 L (4.5-11.0) X10^3/uL RBC 4.08 L (4.5-5.9) X10^6/uL Hgb 11.4 L (13.5-17.5) g/dL Hct 33.7 L (41-53) % MCV 82.6 (80-100) fL MCH 27.9 (26-34) PG MCHC 33.8 (30-36) % RDW 15.9 H (11.6-14.8) % Plt Count 231 (150-400) X10^3/uL Neut % (Auto) 77.3 H (50-75) % Lymph % (Auto) 18.7 L (25-40) % [place] % (Auto) 1.5 L (3-14) % Eos % (Auto) 2.3 (2-4) % Baso % (Auto) 0.2 (0-2) % Neut # (Auto) 2900 (0963-7987) /uL Lymph # (Auto) 700 L (7914-9191) /uL [place] # (Auto) 100 (0-900) /uL Eos # (Auto) 100 (0-450) /uL Baso # (Auto) 0 (0-100) /uL Sodium 137 (137-145) mmol/L Potassium 3.2 L (3.4-5.1) mmol/L Chloride 96 L (98-107) mmol/L Carbon Dioxide 31 (22-32) mmol/L BUN 28 H (9-20) mg/dL Creatinine 1.40 H (0.66-1.25) mg/dL Estimated GFR 51 L (>60) mL/min BUN/Creatinine Ratio 20.0 (6-22) Glucose 149 H (80-110) mg/dL Calcium 9.6 (8.4-10.2) mg/dL Magnesium (1.6-2.3) mg/dL Total Bilirubin 1.6 H (0.2-1.3) mg/dL Conjugated Bilirubin (0.0-0.3) md/dL Unconjugated Bilirubin (0.0-1.1) mg/dL AST 92 H (17-59) IU/L ALT 69 H (<50) IU/L Alkaline Phosphatase 108 (38-126) U/L Total Protein 8.5 H (6.3-8.2) g/dL Albumin 4.7 (3.5-5.0) g/dL Globulin 3.8 (1.7-4.1) g/dL Albumin/Globulin Ratio 1.2 (1.0-2.8) Urine Color Urine Appearance Urine pH (4.5-8.0) Ur Specific [place] (1.000-1.035) Urine Protein (Negative) Urine Glucose (UA) (Negative) g/dL Urine Ketones (NEGATIVE) Urine Occult Blood (Negative) Urine Nitrate (Negative) Urine Bilirubin (NEGATIVE) Urine Urobilinogen (0.2) E.U./dL Ur Leukocyte Esterase (NEGATIVE) Urine RBC (0-5/HPF) Urine WBC (0-5/HPF) Amorphous Sediment Urine Bacteria (None) Ur Culture Indicated? SARS-CoV-2 (PCR) (Negative) HSV I&II IgM (IFA) <0.91 (0.00-0.90) Ratio 07/10/21 07/10/21 07/11/21 Range/Units 17:30 19:27 05:45 WBC 2.8 L (4.5-11.0) X10^3/uL RBC 3.92 L (4.5-5.9) X10^6/uL Hgb 10.9 L (13.5-17.5) g/dL Hct 32.6 L (41-53) % MCV 83.2 (80-100) fL MCH 27.7 (26-34) PG MCHC 33.3 (30-36) % RDW 15.7 H (11.6-14.8) % Plt Count 196 (150-400) X10^3/uL Neut % (Auto) 89.2 H (50-75) % Lymph % (Auto) 9.8 L (25-40) % [place] % (Auto) 0.7 L (3-14) % Eos % (Auto) 0.2 L (2-4) % Baso % (Auto) 0.1 (0-2) % Neut # (Auto) 2500 (1190-7482) /uL Lymph # (Auto) 300 L (1472-9505) /uL [place] # (Auto) 0 (0-900) /uL Eos # (Auto) 0 (0-450) /uL Baso # (Auto) 0 (0-100) /uL Sodium (137-145) mmol/L Potassium (3.4-5.1) mmol/L Chloride (98-107) mmol/L Carbon Dioxide (22-32) mmol/L BUN (9-20) mg/dL Creatinine (0.66-1.25) mg/dL Estimated GFR (>60) mL/min BUN/Creatinine Ratio (6-22) Glucose (80-110) mg/dL Calcium (8.4-10.2) mg/dL Magnesium (1.6-2.3) mg/dL Total Bilirubin (0.2-1.3) mg/dL Conjugated Bilirubin (0.0-0.3) md/dL Unconjugated Bilirubin (0.0-1.1) mg/dL AST (17-59) IU/L ALT (<50) IU/L Alkaline Phosphatase (38-126) U/L Total Protein (6.3-8.2) g/dL Albumin (3.5-5.0) g/dL Globulin (1.7-4.1) g/dL Albumin/Globulin Ratio (1.0-2.8) Urine Color Yellow Urine Appearance Clear Urine pH 5.5 (4.5-8.0) Ur Specific [place] 1.025 (1.000-1.035) Urine Protein 2+ H (Negative) Urine Glucose (UA) Negative (Negative) g/dL Urine Ketones Negative (NEGATIVE) Urine Occult Blood 1+ H (Negative) Urine Nitrate Negative (Negative) Urine Bilirubin Negative (NEGATIVE) Urine Urobilinogen 0.2 (0.2) E.U./dL Ur Leukocyte Esterase Negative (NEGATIVE) Urine RBC 1-5/hpf (0-5/HPF) Urine WBC None seen (0-5/HPF) Amorphous Sediment 1+ Urine Bacteria None seen (None) Ur Culture Indicated? Cult not indicated SARS-CoV-2 (PCR) Negative (Negative) HSV I&II IgM (IFA) (0.00-0.90) Ratio 05/10/22 05/11/22 05/12/22 Range/Units 05:45 04:38 06:26 WBC (4.5-11.0) X10^3/uL RBC (4.5-5.9) X10^6/uL Hgb (13.5-17.5) g/dL Hct (41-53) % MCV (80-100) fL MCH (26-34) PG MCHC (30-36) % RDW (11.6-14.8) % Plt Count (150-400) X10^3/uL Neut % (Auto) (50-75) % Lymph % (Auto) (25-40) % [place] % (Auto) (3-14) % Eos % (Auto) (2-4) % Baso % (Auto) (0-2) % Neut # (Auto) (0582-3009) /uL Lymph # (Auto) (0844-1308) /uL [place] # (Auto) (0-900) /uL Eos # (Auto) (0-450) /uL Baso # (Auto) (0-100) /uL Sodium 132 L 133 L (137-145) mmol/L Potassium 3.2 L 3.5 (3.4-5.1) mmol/L Chloride 97 L 100 (98-107) mmol/L Carbon Dioxide 26 23 (22-32) mmol/L BUN 23 H 29 H (9-20) mg/dL Creatinine 1.28 H 1.28 H (0.66-1.25) mg/dL Estimated GFR 57 L 57 L (>60) mL/min BUN/Creatinine Ratio 18.0 22.7 H (6-22) Glucose 281 H D 290 H (80-110) mg/dL Calcium 8.9 8.6 (8.4-10.2) mg/dL Magnesium (1.6-2.3) mg/dL Total Bilirubin 1.5 H 1.0 1.0 (0.2-1.3) mg/dL Conjugated Bilirubin 0.0 0.0 (0.0-0.3) md/dL Unconjugated Bilirubin 0.7 0.7 (0.0-1.1) mg/dL AST 94 H 69 H 70 H (17-59) IU/L ALT 79 H 68 H 64 H (<50) IU/L Alkaline Phosphatase 105 95 83 (38-126) U/L Total Protein 7.9 7.3 6.7 (6.3-8.2) g/dL Albumin 4.4 4.1 3.8 (3.5-5.0) g/dL Globulin 3.5 3.2 2.9 (1.7-4.1) g/dL Albumin/Globulin Ratio 1.3 1.3 1.3 (1.0-2.8) Urine Color Urine Appearance Urine pH (4.5-8.0) Ur Specific [place] (1.000-1.035) Urine Protein (Negative) Urine Glucose (UA) (Negative) g/dL Urine Ketones (NEGATIVE) Urine Occult Blood (Negative) Urine Nitrate (Negative) Urine Bilirubin (NEGATIVE) Urine Urobilinogen (0.2) E.U./dL Ur Leukocyte Esterase (NEGATIVE) Urine RBC (0-5/HPF) Urine WBC (0-5/HPF) Amorphous Sediment Urine Bacteria (None) Ur Culture Indicated? SARS-CoV-2 (PCR) (Negative) HSV I&II IgM (IFA) (0.00-0.90) Ratio 07/13/21 07/13/21 Range/Units 06:26 06:26 WBC (4.5-11.0) X10^3/uL RBC (4.5-5.9) X10^6/uL Hgb (13.5-17.5) g/dL Hct (41-53) % MCV (80-100) fL MCH (26-34) PG MCHC (30-36) % RDW (11.6-14.8) % Plt Count (150-400) X10^3/uL Neut % (Auto) (50-75) % Lymph % (Auto) (25-40) % [place] % (Auto) (3-14) % Eos % (Auto) (2-4) % Baso % (Auto) (0-2) % Neut # (Auto) (9316-7189) /uL Lymph # (Auto) (4076-6102) /uL [place] # (Auto) (0-900) /uL Eos # (Auto) (0-450) /uL Baso # (Auto) (0-100) /uL Sodium 137 (137-145) mmol/L Potassium 3.5 (3.4-5.1) mmol/L Chloride 103 (98-107) mmol/L Carbon Dioxide 27 (22-32) mmol/L BUN 34 H (9-20) mg/dL Creatinine 1.45 H (0.66-1.25) mg/dL Estimated GFR 49 L (>60) mL/min BUN/Creatinine Ratio 23.4 H (6-22) Glucose 188 H D (80-110) mg/dL Calcium 8.6 (8.4-10.2) mg/dL Magnesium 2.0 (1.6-2.3) mg/dL Total Bilirubin (0.2-1.3) mg/dL Conjugated Bilirubin (0.0-0.3) md/dL Unconjugated Bilirubin (0.0-1.1) mg/dL AST (17-59) IU/L ALT (<50) IU/L Alkaline Phosphatase (38-126) U/L Total Protein (6.3-8.2) g/dL Albumin (3.5-5.0) g/dL Globulin (1.7-4.1) g/dL Albumin/Globulin Ratio (1.0-2.8) Urine Color Urine Appearance Urine pH (4.5-8.0) Ur Specific Vaughn (1.000-1.035) Urine Protein (Negative) Urine Glucose (UA) (Negative) g/dL Urine Ketones (NEGATIVE) Urine Occult Blood (Negative) Urine Nitrate (Negative) Urine Bilirubin (NEGATIVE) Urine Urobilinogen (0.2) E.U./dL Ur Leukocyte Esterase (NEGATIVE) Urine RBC (0-5/HPF) Urine WBC (0-5/HPF) Amorphous Sediment Urine Bacteria (None) Ur Culture Indicated? SARS-CoV-2 (PCR) (Negative) HSV I&II IgM (IFA) (0.00-0.90) Ratio Point of Care Testing Rapid Strep A Negative Glucose POC 272 MDM Narrative Medical decision making narrative: Care is assumed from Dr. Coello. 81-year-old gentleman who is currently on methotrexate and prednisone and presents with a sore throat and inability to eat and drink. 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 He is having trouble eating and drinking and becoming dehydrated secondary to the severe stomatitis pain. He states that he currently is on methotrexate 4 tablets day 1 and day 2 and n othing for 5 days. He is not sure of the dose nor is he entirely sure why he is taking the methotrexate in the 1st place. 130am patient is re-evaluated. His stomatitis seems to be getting progressively worse. There is erythema over the soft palate into the uvula tonsillar pillars and now abscess type ulceration extending over buccal mucosa and to the inner side of his lower lips. The vesicular/pustular type rash appreciated over his neck/supraclavicular fossa bilaterally seems to be worsening and he is now having the same rash beginning to appear on his face with increasing erythema over his face. He is not having any wheezing or respiratory distress. He does complain that his pain is again returning. He is started on D5 half-normal saline with potassium at maintenance dose, he is given half a mg of Dilaudid and 25 mg of Benadryl to help with sleep for the remainder of the evening. If we are considering the possibility/probability of methotrexate causing his symptoms, one of the suggestions for treatment of stomatitis is dexamethasone. 10 mg dexamethasone is given and Magic mouthwash is ordered to help with the stomatitis pain. Regarding his increased LFTs in presumed had a toxicity from methotrexate recommendation is conservative management with typical resolution happening within 1-2 weeks. His creatinine has increased from December of 2020 but is stable from mid June. Unclear if this represents renal toxicity from his methotrexate or dehydration. Methotrexate dermatologic toxicity suggests approximately 14-15% of patients develop nonspecific morbilliform drug rash which is usually erythematous, macular, paretic and often confined to the neck and trunk (up-to-date). Morning labs were ordered. Still waiting for bed availability at [facility]. Due to worsening stomatitis his primary care physician felt that admission to a hospital with GI and Cardiology immediately available would be prudent. Similarly, his bench technician is at [facility]. <Lise Cruz, - Last Filed: 07/11/21 17:55> Lab Data Labs: Lab Results 07/10/21 07/10/21 07/10/21 Range/Units 16:42 16:42 16:42 WBC 3.7 L (4.5-11.0) X10^3/uL RBC 4.08 L (4.5-5.9) X10^6/uL Hgb 11.4 L (13.5-17.5) g/dL Hct 33.7 L (41-53) % MCV 82.6 (80-100) fL MCH 27.9 (26-34) PG MCHC 33.8 (30-36) % RDW 15.9 H (11.6-14.8) % Plt Count 231 (150-400) X10^3/uL Neut % (Auto) 77.3 H (50-75) % Lymph % (Auto) 18.7 L (25-40) % [place] % (Auto) 1.5 L (3-14) % Eos % (Auto) 2.3 (2-4) % Baso % (Auto) 0.2 (0-2) % Neut # (Auto) 2900 (5861-9425) /uL Lymph # (Auto) 700 L (8978-4798) /uL [place] # (Auto) 100 (0-900) /uL Eos # (Auto) 100 (0-450) /uL Baso # (Auto) 0 (0-100) /uL Sodium 137 (137-145) mmol/L Potassium 3.2 L (3.4-5.1) mmol/L Chloride 96 L (98-107) mmol/L Carbon Dioxide 31 (22-32) mmol/L BUN 28 H (9-20) mg/dL Creatinine 1.40 H (0.66-1.25) mg/dL Estimated GFR 51 L (>60) mL/min BUN/Creatinine Ratio 20.0 (6-22) Glucose 149 H (80-110) mg/dL Calcium 9.6 (8.4-10.2) mg/dL Magnesium (1.6-2.3) mg/dL Total Bilirubin 1.6 H (0.2-1.3) mg/dL Conjugated Bilirubin (0.0-0.3) md/dL Unconjugated Bilirubin (0.0-1.1) mg/dL AST 92 H (17-59) IU/L ALT 69 H (<50) IU/L Alkaline Phosphatase 108 (38-126) U/L Total Protein 8.5 H (6.3-8.2) g/dL Albumin 4.7 (3.5-5.0) g/dL Globulin 3.8 (1.7-4.1) g/dL Albumin/Globulin Ratio 1.2 (1.0-2.8) Urine Color Urine Appearance Urine pH (4.5-8.0) Ur Specific Vaughn (1.000-1.035) Urine Protein (Negative) Urine Glucose (UA) (Negative) g/dL Urine Ketones (NEGATIVE) Urine Occult Blood (Negative) Urine Nitrate (Negative) Urine Bilirubin (NEGATIVE) Urine Urobilinogen (0.2) E.U./dL Ur Leukocyte Esterase (NEGATIVE) Urine RBC (0-5/HPF) Urine WBC (0-5/HPF) Amorphous Sediment Urine Bacteria (None) Ur Culture Indicated? SARS-CoV-2 (PCR) (Negative) HSV I&II IgM (IFA) <0.91 (0.00-0.90) Ratio 07/10/21 07/10/21 07/11/21 Range/Units 17:30 19:27 05:45 WBC 2.8 L (4.5-11.0) X10^3/uL RBC 3.92 L (4.5-5.9) X10^6/uL Hgb 10.9 L (13.5-17.5) g/dL Hct 32.6 L (41-53) % MCV 83.2 (80-100) fL MCH 27.7 (26-34) PG MCHC 33.3 (30-36) % RDW 15.7 H (11.6-14.8) % Plt Count 196 (150-400) X10^3/uL Neut % (Auto) 89.2 H (50-75) % Lymph % (Auto) 9.8 L (25-40) % [place] % (Auto) 0.7 L (3-14) % Eos % (Auto) 0.2 L (2-4) % Baso % (Auto) 0.1 (0-2) % Neut # (Auto) 2500 (0129-9861) /uL Lymph # (Auto) 300 L (7352-2451) /uL [place] # (Auto) 0 (0-900) /uL Eos # (Auto) 0 (0-450) /uL Baso # (Auto) 0 (0-100) /uL Sodium (137-145) mmol/L Potassium (3.4-5.1) mmol/L Chloride (98-107) mmol/L Carbon Dioxide (22-32) mmol/L BUN (9-20) mg/dL Creatinine (0.66-1.25) mg/dL Estimated GFR (>60) mL/min BUN/Creatinine Ratio (6-22) Glucose (80-110) mg/dL Calcium (8.4-10.2) mg/dL Magnesium (1.6-2.3) mg/dL Total Bilirubin (0.2-1.3) mg/dL Conjugated Bilirubin (0.0-0.3) md/dL Unconjugated Bilirubin (0.0-1.1) mg/dL AST (17-59) IU/L ALT (<50) IU/L Alkaline Phosphatase (38-126) U/L Total Protein (6.3-8.2) g/dL Albumin (3.5-5.0) g/dL Globulin (1.7-4.1) g/dL Albumin/Globulin Ratio (1.0-2.8) Urine Color Yellow Urine Appearance Clear Urine pH 5.5 (4.5-8.0) Ur Specific Vaughn 1.025 (1.000-1.035) Urine Protein 2+ H (Negative) Urine Glucose (UA) Negative (Negative) g/dL Urine Ketones Negative (NEGATIVE) Urine Occult Blood 1+ H (Negative) Urine Nitrate Negative (Negative) Urine Bilirubin Negative (NEGATIVE) Urine Urobilinogen 0.2 (0.2) E.U./dL Ur Leukocyte Esterase Negative (NEGATIVE) Urine RBC 1-5/hpf (0-5/HPF) Urine WBC None seen (0-5/HPF) Amorphous Sediment 1+ Urine Bacteria None seen (None) Ur Culture Indicated? Cult not indicated SARS-CoV-2 (PCR) Negative (Negative) HSV I&II IgM (IFA) (0.00-0.90) Ratio 07/11/21 07/12/21 07/13/21 Range/Units 05:45 04:38 06:26 WBC (4.5-11.0) X10^3/uL RBC (4.5-5.9) X10^6/uL Hgb (13.5-17.5) g/dL Hct (41-53) % MCV (80-100) fL MCH (26-34) PG MCHC (30-36) % RDW (11.6-14.8) % Plt Count (150-400) X10^3/uL Neut % (Auto) (50-75) % Lymph % (Auto) (25-40) % [place] % (Auto) (3-14) % Eos % (Auto) (2-4) % Baso % (Auto) (0-2) % Neut # (Auto) (3165-6414) /uL Lymph # (Auto) (6922-0893) /uL [place] # (Auto) (0-900) /uL Eos # (Auto) (0-450) /uL Baso # (Auto) (0-100) /uL Sodium 132 L 133 L (137-145) mmol/L Potassium 3.2 L 3.5 (3.4-5.1) mmol/L Chloride 97 L 100 (98-107) mmol/L Carbon Dioxide 26 23 (22-32) mmol/L BUN 23 H 29 H (9-20) mg/dL Creatinine 1.28 H 1.28 H (0.66-1.25) mg/dL Estimated GFR 57 L 57 L (>60) mL/min BUN/Creatinine Ratio 18.0 22.7 H (6-22) Glucose 281 H D 290 H (80-110) mg/dL Calcium 8.9 8.6 (8.4-10.2) mg/dL Magnesium (1.6-2.3) mg/dL Total Bilirubin 1.5 H 1.0 1.0 (0.2-1.3) mg/dL Conjugated Bilirubin 0.0 0.0 (0.0-0.3) md/dL Unconjugated Bilirubin 0.7 0.7 (0.0-1.1) mg/dL AST 94 H 69 H 70 H (17-59) IU/L ALT 79 H 68 H 64 H (<50) IU/L Alkaline Phosphatase 105 95 83 (38-126) U/L Total Protein 7.9 7.3 6.7 (6.3-8.2) g/dL Albumin 4.4 4.1 3.8 (3.5-5.0) g/dL Globulin 3.5 3.2 2.9 (1.7-4.1) g/dL Albumin/Globulin Ratio 1.3 1.3 1.3 (1.0-2.8) Urine Color Urine Appearance Urine pH (4.5-8.0) Ur Specific Vaughn (1.000-1.035) Urine Protein (Negative) Urine Glucose (UA) (Negative) g/dL Urine Ketones (NEGATIVE) Urine Occult Blood (Negative) Urine Nitrate (Negative) Urine Bilirubin (NEGATIVE) Urine Urobilinogen (0.2) E.U./dL Ur Leukocyte Esterase (NEGATIVE) Urine RBC (0-5/HPF) Urine WBC (0-5/HPF) Amorphous Sediment Urine Bacteria (None) Ur Culture Indicated? SARS-CoV-2 (PCR) (Negative) HSV I&II IgM (IFA) (0.00-0.90) Ratio 07/13/21 07/13/21 Range/Units 06:26 06:26 WBC (4.5-11.0) X10^3/uL RBC (4.5-5.9) X10^6/uL Hgb (13.5-17.5) g/dL Hct (41-53) % MCV (80-100) fL MCH (26-34) PG MCHC (30-36) % RDW (11.6-14.8) % Plt Count (150-400) X10^3/uL Neut % (Auto) (50-75) % Lymph % (Auto) (25-40) % [place] % (Auto) (3-14) % Eos % (Auto) (2-4) % Baso % (Auto) (0-2) % Neut # (Auto) (0862-4734) /uL Lymph # (Auto) (4029-5680) /uL [place] # (Auto) (0-900) /uL Eos # (Auto) (0-450) /uL Baso # (Auto) (0-100) /uL Sodium 137 (137-145) mmol/L Potassium 3.5 (3.4-5.1) mmol/L Chloride 103 (98-107) mmol/L Carbon Dioxide 27 (22-32) mmol/L BUN 34 H (9-20) mg/dL Creatinine 1.45 H (0.66-1.25) mg/dL Estimated GFR 49 L (>60) mL/min BUN/Creatinine Ratio 23.4 H (6-22) Glucose 188 H D (80-110) mg/dL Calcium 8.6 (8.4-10.2) mg/dL Magnesium 2.0 (1.6-2.3) mg/dL Total Bilirubin (0.2-1.3) mg/dL Conjugated Bilirubin (0.0-0.3) md/dL Unconjugated Bilirubin (0.0-1.1) mg/dL AST (17-59) IU/L ALT (<50) IU/L Alkaline Phosphatase (38-126) U/L Total Protein (6.3-8.2) g/dL Albumin (3.5-5.0) g/dL Globulin (1.7-4.1) g/dL Albumin/Globulin Ratio (1.0-2.8) Urine Color Urine Appearance Urine pH (4.5-8.0) Ur Specific Vaughn (1.000-1.035) Urine Protein (Negative) Urine Glucose (UA) (Negative) g/dL Urine Ketones (NEGATIVE) Urine Occult Blood (Negative) Urine Nitrate (Negative) Urine Bilirubin (NEGATIVE) Urine Urobilinogen (0.2) E.U./dL Ur Leukocyte Esterase (NEGATIVE) Urine RBC (0-5/HPF) Urine WBC (0-5/HPF) Amorphous Sediment Urine Bacteria (None) Ur Culture Indicated? SARS-CoV-2 (PCR) (Negative) HSV I&II IgM (IFA) (0.00-0.90) Ratio Point of Care Testing Rapid Strep A Negative Glucose POC 272 MDM Narrative Medical decision making narrative: Care is assumed from Dr. Coello. 81-year-old gentleman who is currently on methotrexate and prednisone and presents with a sore throat and inability to eat and drink. 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 He is having trouble eating and drinking and becoming dehydrated secondary to the severe stomatitis pain. He states that he currently is on methotrexate 4 tablets day 1 and day 2 and nothing for 5 days. He is not sure of the dose nor is he entirely sure why he is taking the methotrexate in the 1st place. 130am patient is re-evaluated. His stomatitis seems to be getting progressively worse. There is erythema over the soft palate into the uvula tonsillar pillars and now abscess type ulceration extending over buccal mucosa and to the inner side of his lower lips. The vesicular/pustular type rash appreciated over his neck/supraclavicular fossa bilaterally seems to be worsening and he is now having the same rash beginning to appear on his face with increasing erythema over his face. He is not having any wheezing or respiratory distress. He does complain that his pain is again returning. He is started on D5 half-normal saline with potassium at maintenance dose, he is given half a mg of Dilaudid and 25 mg of Benadryl to help with sleep for the remainder of the evening. If we are considering the possibility/probability of methotrexate causing his symptoms, one of the suggestions for treatment of stomatitis is dexamethasone. 10 mg dexamethasone is given and Magic mouthwash is ordered to help with the stomatitis pain. Regarding his increased LFTs in presumed had a toxicity from methotrexate recommendation is conservative management with typical resolution happening within 1-2 weeks. His creatinine has increased from December of 2020 but is stable from mid June. Unclear if this represents renal toxicity from his methotrexate or dehydration. Methotrexate dermatologic toxicity suggests approximately 14-15% of patients develop nonspecific morbilliform drug rash which is usually erythematous, macular, paretic and often confined to the neck and trunk (up-to-date). Morning labs were ordered. Still waiting for bed availability at [facility]. Due to worsening stomatitis his primary care physician felt that admission to a hospital with GI and Cardiology immediately available would be prudent. Similarly, his bench technician is at [facility]. 07/11/21 Anthony seen and evaluated this morning. Patient does have sores in his mouth. Awake and alert is able to tolerate some water. [facility] for GI. 9:20am Dr. White bench technician, states that patient is given 20 mg he says it is an extremely low dose he says it is highly unlikely that stomatitis is from this particular medications recommends looking for another source. He says supportive care, continue steroids 1020 GI doctor at [facility] called for advice states, no idication for GI at this time. Only if very severe Stomatitis, would ENT get involved but mostly managed by rheumatology and supportive care. Dr. Medina accepts patient at [facility] Discharge Plan Departure Patient Disposition: Admitted as Observation Clinical Impression: Elevated liver enzymes, Aphthous stomatitis, Acute dehydration, Morbilliform rash Adverse drug reaction Qualifiers: Encounter type: initial encounter Qualified Code(s): T50.905A - Adverse effect of unspecified drugs, medicaments and biological substances, initial encounter Admit Date/Time: 07/13/21 15:35 Admit Provider: Matt Medina
[2021-07-10] MEDS: SUCRALFATE 1 GM/10 ML ORAL SUSP PO (17:22)
[2021-07-10 17:23] LABS: Alanine Aminotransferase 69 IU/L (<50); Albumin 4.7 g/dL (3.5-5.0); Albumin Globulin Ratio 1.2 (1.0-2.8); Alkaline Phosphatase 108 U/L (38-126); Aspartate Aminotransferase 92 IU/L (17-59); Bilirubin Total 1.6 mg/dL (0.2-1.3); Blood Urea Nitrogen 28 mg/dL (9-20); Calcium 9.6 mg/dL (8.4-10.2); Carbon Dioxide 31 mmol/L (22-32); Chloride 96 mmol/L (98-107); Estimated Glomerular Filt Rate 51 mL/min (>60); Globulin 3.8 g/dL (1.7-4.1); Glucose 149 mg/dL (80-110); HEMOLYSIS < 15 (0-50); Potassium 3.2 mmol/L (3.4-5.1); Sodium 137 mmol/L (137-145); Total Protein 8.5 g/dL (6.3-8.2)
[2021-07-10] MEDS: SODIUM CHLORIDE 0.9% 500 ML 1000 ML IV (17:23)
[2021-07-10 17:32] LABS: Add Manual Diff / Slide Review NO; Basophils Absolute Auto 0 /uL (0-100); Basophils Percent Auto 0.2 % (0-2); Eosinophils Absolute Auto 100 /uL (0-450); Eosinophils Percent Auto 2.3 % (2-4); Hematocrit 33.7 % (41-53); Hemoglobin 11.4 g/dL (13.5-17.5); Lymphocytes Absolute Auto 700 /uL (1100-4500); Lymphocytes Percent Auto 18.7 % (25-40); Mean Corpuscular HGB Conc 33.8 % (30-36); Mean Corpuscular Hemoglobin 27.9 PG (26-34); Mean Corpuscular Volume 82.6 fL (80-100); Monocytes Absolute Auto 100 /uL (0-900); Monocytes Percent Auto 1.5 % (3-14); Neutrophils Absolute Auto 2900 /uL (1500-7000); Neutrophils Percent Auto 77.3 % (50-75); Platelet Count 231 X10^3/uL (150-400); Red Blood Cell Count 4.08 X10^6/uL (4.5-5.9); Red Cell Distribution Width 15.9 % (11.6-14.8); White Blood Cell Count 3.7 X10^3/uL (4.5-11.0)
[2021-07-10 18:16] LABS: COVID19 -Nasal RAPID Negative (Negative)
[2021-07-10 19:46] LABS: Appearance Urine UA CLEAR; Bilirubin Urine UA NEGATIVE (NEGATIVE); Color Urine UA YELLOW; Glucose Urine UA NEGATIVE (Negative); Ketones Urine UA NEGATIVE (NEGATIVE); Leukocyte Esterase Urine UA NEGATIVE (NEGATIVE); Nitrite Urine UA NEGATIVE (Negative); Occult Blood Urine UA 1+ (Negative); Protein Urine UA 2+ (Negative); Specific Gravity Urine UA 1.025 (1.000-1.035); Urobilinogen Urine UA 0.2 E.U./dL (0.2); pH Urine UA 5.5 (4.5-8.0)
[2021-07-10 19:47] LABS: RBC Urine 1-5/HPF (0-5/HPF); WBC Urine None Seen (0-5/HPF)
[2021-07-10 19:48] LABS: Amorphous Sediment Urine 1+; Bacteria Urine None Seen; Culture Indicated Urine Cult Not Indicated
[2021-07-10] MEDS: MAG HYDROX/ALUMINUM/SIMETH SUS 20 ML, LIDOCAINE VISCOUS 2% 15 ML PO (20:17)
[2021-07-11] VITALS (31 sets, daily range): BP systolic 148–207; BP diastolic 78–92; PULSE 69–95; RESP 14–22; TEMP 36.5–36.8; O2SAT 91–98; BMI 32.5
[2021-07-11] MEDS: DEXTROSE 5%-0.45NS W/KCL 20MEQ 1,000 ML 125 MEQ IV ×2 (01:36→10:30)
[2021-07-11] MEDS: HYDROMORPHONE 0.5 MG INJ IV ×2 (01:36→08:28)
[2021-07-11] MEDS: diphenhydrAMINE 50 MG/ML VIAL 25 MG IV (01:37)
[2021-07-11] MEDS: DEXAMETHASONE 10 MG/ML VIAL IV ×3 (01:37→14:51)
--- NOTE | 2021-07-11 01:48 | PC.NURSE ---
Pt awake, reporting worsening pain to mouth/throat. Ulcerations noted to lower lip and inside mouth. Dr Bethea to bedside for reeval, medications ordered for pain management and rest. Pt was assisted to ambulate to bathroom with cane, medicated per order, now resting in bed.
[2021-07-11] MEDS: MAG HYDROX/ALUMINUM/SIMETH SUS 20 ML, LIDOCAINE VISCOUS 2% 15 ML PO (05:02)
[2021-07-11 06:02] LABS: Add Manual Diff / Slide Review NO; Basophils Absolute Auto 0 /uL (0-100); Basophils Percent Auto 0.1 % (0-2); Eosinophils Absolute Auto 0 /uL (0-450); Eosinophils Percent Auto 0.2 % (2-4); Hematocrit 32.6 % (41-53); Hemoglobin 10.9 g/dL (13.5-17.5); Lymphocytes Absolute Auto 300 /uL (1100-4500); Lymphocytes Percent Auto 9.8 % (25-40); Mean Corpuscular HGB Conc 33.3 % (30-36); Mean Corpuscular Hemoglobin 27.7 PG (26-34); Mean Corpuscular Volume 83.2 fL (80-100); Monocytes Absolute Auto 0 /uL (0-900); Monocytes Percent Auto 0.7 % (3-14); Neutrophils Absolute Auto 2500 /uL (1500-7000); Neutrophils Percent Auto 89.2 % (50-75); Platelet Count 196 X10^3/uL (150-400); Red Blood Cell Count 3.92 X10^6/uL (4.5-5.9); Red Cell Distribution Width 15.7 % (11.6-14.8); White Blood Cell Count 2.8 X10^3/uL (4.5-11.0)
[2021-07-11 06:04] LABS: Alanine Aminotransferase 79 IU/L (<50); Albumin 4.4 g/dL (3.5-5.0); Albumin Globulin Ratio 1.3 (1.0-2.8); Alkaline Phosphatase 105 U/L (38-126); Aspartate Aminotransferase 94 IU/L (17-59); Bilirubin Total 1.5 mg/dL (0.2-1.3); Blood Urea Nitrogen 23 mg/dL (9-20); Calcium 8.9 mg/dL (8.4-10.2); Carbon Dioxide 26 mmol/L (22-32); Chloride 97 mmol/L (98-107); Estimated Glomerular Filt Rate 57 mL/min (>60); Globulin 3.5 g/dL (1.7-4.1); Glucose 281 mg/dL (80-110); HEMOLYSIS < 15 (0-50); Potassium 3.2 mmol/L (3.4-5.1); Sodium 132 mmol/L (137-145); Total Protein 7.9 g/dL (6.3-8.2)
[2021-07-11] MEDS: LIDOCAINE VISCOUS 2% 30 ML, MAG HYDROX/ALUMINUM/SIMETH SUS 30 ML, NYSTATIN SUSP 3,000,0... MM ×8 (09:08→23:01)
--- NOTE | 2021-07-11 11:10 | PM.HP.1 ---
History of Present Illness History of Present Illness Date Patient Seen: 07/11/21 Time Patient Seen: 11:10 Chief complaint: Allergic Reaction Narrative: 81-year-old male with complicated medical history who was started on methotrexate last week by Rheumatology for possible conversion of his PMR in to some sort of other systemic arthropathy. Over the last several days had increasing mouth discomfort to the point where he has been unable to take his meds and really eat or drink anything because of pain and discomfort. Came to the emergency department for evaluation found to be unable to support himself hydration and nutrition. Unclear as to the exact etiology although the timing strongly suggest the methotrexate since nothing else is new or different. Patient has had strong skin reaction to clopidogrel previously which is why he is on Brilinta instead for anti-platelet therapy given his cardiac history. In any event, I was consulted last evening and suggested that admission to hospital where there is Gastroenterology who can perform an upper endoscopy to fully evaluate for presence of esophagitis etcetera since his initial issues seem to be more swallowing than anything else would be entirely appropriate. However there are no available beds in any [facility] to allow for this. In that period of time he has improved slightly a is to the point where he is able to keep or least ingest some small amounts of fluids. Has been given a Magic mouthwash as well as IV dexamethasone with some minor improvement ER physician's of also discussed case with the rheumatology who does not feel like the methotrexate is the likely culprit for some reason. Gastroenterology was also not formally consulted but at least his case was discussed over the phone and they suggested there is really nothing more than supportive therapy that would be appropriate at this point and perhaps sometimes an ENT evaluation might be appropriate should he worsen or fail to improve Given lack of ability to find placement in any other facility he will be admitted to [facility] for continued conservative management and supportive therapy as above Patient History Medical History Benign prostatic hyperplasia with urinary obstruction (03/25/15) BPH w urinary obs/LUTS Chronic back pain (1989) Coronary artery disease involving [place] coronary artery of [place] heart without angina pectoris (1995) Depression Diabetes Essential hypertension Family history of prostate cancer Femur fracture (1965) Fracture (1951) Gilbert's syndrome Hayfever (1999) Hepatitis A (1963) HLD (hyperlipidemia) Incomplete bladder emptying Melanoma (1987) Mild claudication Mixed hyperlipidemia Peripheral vascular disease (2009) Polymyalgia rheumatica (08/30/15) Primary osteoarthritis of both hips (08/30/15) Recurrent falls Shoulder pain (2011) Spinal stenosis Tinnitus Type 2 diabetes mellitus without complication (06/20/15) Urge urinary incontinence Surgical History History of appendectomy History of coronary artery stent placement History of orthopedic surgery (1965) Status post appendectomy (1956) Status post coronary artery bypass graft (1995) Family & Social History Family History Father Colon cancer Prostate enlargement Bladder cancer History of hip surgery Pneumonia History of prostate surgery Mother Diabetes mellitus Heart disease Hypertension High cholesterol Osteoporosis History of cataract surgery H/O heart bypass surgery Arthritis Grandfather Arthritis Prostate cancer Colon cancer Deaf Legally blind Grandmother Diabetes mellitus Hypertension Angina pectoris Heart disease Osteoporosis Social History: household members spouse lives independently Yes caregiver/support person No Safety & Behavioral: Feels Safe in Current Yes Environment Been Physically Hurt or No Threatened By a Person Tobacco & Substance use: Smoking Status Former smoker alcohol intake current alcohol intake frequency 3 or more drinks per day Substance Use Type does not use Meds Home Medications and Allergies Home Medications Medication Instructions Recorded Confirmed Type aspirin 81 mg tablet,delayed 81 mg PO DAILY 09/09/18 07/11/21 History release (Adult Low Dose Aspirin) carvedilol 25 mg tablet 25 mg PO BID #60 tab 09/09/18 07/11/21 History ticagrelor 90 mg tablet (Brilinta) 90 mg PO BID 09/17/19 07/11/21 History vitamin B complex (B 1 tab PO DAILY 09/24/19 07/11/21 History Complex-Vitamin B12) metformin 1,000 mg tablet 1,000 mg PO BID #180 tab 03/17/20 07/11/21 Rx acetaminophen 325 mg tablet 650 mg PO BID PRN 08/17/20 07/11/21 History (Tylenol) cilostazol 100 mg tablet 100 mg PO BID 08/17/20 07/11/21 History isosorbide dinitrate 20 mg tablet 20 mg PO BID 08/17/20 07/11/21 History rosuvastatin 20 mg tablet 20 mg PO DAILY 08/17/20 07/11/21 History sertraline 100 mg tablet 100 mg PO DAILY #90 tab 11/25/20 07/11/21 Rx famotidine 20 mg tablet 20 mg PO BID #180 tab 11/28/20 07/11/21 Rx Brilinta 90 PO BID 12/09/20 07/10/21 History tamsulosin 0.4 mg capsule (Flomax) 0.4 mg PO BID #180 tab 01/23/21 07/11/21 Rx glipizide 10 mg tablet 10 mg PO DAILY #90 tab 02/21/21 07/11/21 Rx hydrochlorothiazide 12.5 mg tablet 12.5 mg PO BID #180 tab 02/28/21 07/11/21 Rx finasteride 5 mg tablet 5 mg PO DAILY #90 tab 04/14/21 07/11/21 Rx potassium chloride 20 mEq 20 meq PO DAILY #90 tab 04/27/21 07/11/21 Rx tablet,extended release blood-glucose sensor (Dexcom G6 #3 ea 06/26/21 07/11/21 History Sensor) blood-glucose transmitter (Dexcom #1 ea 06/26/21 07/11/21 History G6 Transmitter) pioglitazone 30 mg tablet 30 mg PO DAILY 07/11/21 07/11/21 History Allergies Allergy/AdvReac Type Severity Reaction Status Date / Time clavulanic acid Allergy Severe Rash/Hives Verified 07/10/21 09:02 [From Augmentin] - internal reaction clopidogrel [From Plavix] Allergy Severe Hives. Verified 07/10/21 09:02 Penicillins Allergy Intermediate HIVES Verified 07/10/21 09:02 amoxicillin AdvReac Intermediate Hives Verified 07/10/21 09:02 Xacppyg-CBE-VaR Reductase AdvReac Intermediate fatigue, Verified 07/10/21 09:02 Inhibitor extreme [Wbxexhm-Acz-Pxk Reductase Inhibitor] Review of Systems Review of Systems ROS: Yes All systems reviewed with the patient and are negative except as otherwise documented Exam Vital Signs (past 8 hours): - 07/11/21 03:30 07/11/21 04:00 07/11/21 04:30 Pulse Rate 80 80 79 Pulse Oximetry 92 92 93 Oxygen Delivery Method Room Air Narrative Exam Narrative: Chronic ill elderly male lying in the ER on a gurney HEENT-erythematous changes to the entire oral mucosa except for the hard palate without specific lesions. Red raise lesions throughout his particularly left face neck and chest Neck-no lymphadenopathy Lungs-clear with good breath sounds Heart-regular rate and rhythm Abdomen-benign, obese, positive bowel tones no organomegaly Objective Labs Result Diagrams: 07/11/21 05:45 07/12/21 04:38 Labs: Laboratory Results - last 24 hr 07/10/21 07/10/21 07/10/21 16:42 16:42 17:30 WBC 3.7 L RBC 4.08 L Hgb 11.4 L Hct 33.7 L MCV 82.6 MCH 27.9 MCHC 33.8 RDW 15.9 H Plt Count 231 Neut % (Auto) 77.3 H Lymph % (Auto) 18.7 L [place] % (Auto) 1.5 L Eos % (Auto) 2.3 Baso % (Auto) 0.2 Neut # (Auto) 2900 Lymph # (Auto) 700 L [place] # (Auto) 100 Eos # (Auto) 100 Baso # (Auto) 0 Sodium 137 Potassium 3.2 L Chloride 96 L Carbon Dioxide 31 BUN 28 H Creatinine 1.40 H Estimated GFR 51 L BUN/Creatinine Ratio 20.0 Glucose 149 H Calcium 9.6 Total Bilirubin 1.6 H AST 92 H ALT 69 H Alkaline Phosphatase 108 Total Protein 8.5 H Albumin 4.7 Globulin 3.8 Albumin/Globulin Ratio 1.2 Urine Color Urine Appearance Urine pH Ur Specific [place] Urine Protein Urine Glucose (UA) Urine Ketones Urine Occult Blood Urine Nitrate Urine Bilirubin Urine Urobilinogen Ur Leukocyte Esterase Urine RBC Urine WBC Amorphous Sediment Urine Bacteria Ur Culture Indicated? SARS-CoV-2 (PCR) Negative 07/10/21 07/11/21 07/11/21 19:27 05:45 05:45 WBC 2.8 L RBC 3.92 L Hgb 10.9 L Hct 32.6 L MCV 83.2 MCH 27.7 MCHC 33.3 RDW 15.7 H Plt Count 196 Neut % (Auto) 89.2 H Lymph % (Auto) 9.8 L [place] % (Auto) 0.7 L Eos % (Auto) 0.2 L Baso % (Auto) 0.1 Neut # (Auto) 2500 Lymph # (Auto) 300 L [place] # (Auto) 0 Eos # (Auto) 0 Baso # (Auto) 0 Sodium 132 L Potassium 3.2 L Chloride 97 L Carbon Dioxide 26 BUN 23 H Creatinine 1.28 H Estimated GFR 57 L BUN/Creatinine Ratio 18.0 Glucose 281 H D Calcium 8.9 Total Bilirubin 1.5 H AST 94 H ALT 79 H Alkaline Phosphatase 105 Total Protein 7.9 Albumin 4.4 Globulin 3.5 Albumin/Globulin Ratio 1.3 Urine Color Yellow Urine Appearance Clear Urine pH 5.5 Ur Specific [place] 1.025 Urine Protein 2+ H Urine Glucose (UA) Negative Urine Ketones Negative Urine Occult Blood 1+ H Urine Nitrate Negative Urine Bilirubin Negative Urine Urobilinogen 0.2 Ur Leukocyte Esterase Negative Urine RBC 1-5/hpf Urine WBC None seen Amorphous Sediment 1+ Urine Bacteria None seen Ur Culture Indicated? Cult not indicated SARS-CoV-2 (PCR) Assessment & Plan Assessment & Plan narrative: 1. Stomatitis-hopefully with aggressive therapy with corticosteroids and topical therapies Magic mouthwash etcetera he will improve. He is already able to apparently swallow small amounts of liquids. Hopefully can get some of his very essential oral medications into his system and will continue to improve. I will continue with above therapies and monitor carefully. If need be will engage surgery for upper endoscopy although at this point hopefully that will not be necessary. 2. Polyarthritis-patient with an unclear rheumatological disorder at this point. He should be much improved with the aggressive corticosteroid therapy for his stomatitis as above. He will not be restarted on methotrexate and per rheumatology will not be started on folic acid either. 3. Type 2 diabetes-patient's blood sugars were clearly go up with the parental steroids as above. He normally is controlled with 1 of the newer injectable medications plus oral medications. I am going to hold off on these and control his blood sugar with insulin alone at this time. If he is able to swallow better when he is able to swallow better will return him to his oral meds. He should be on a carbohydrate consistent diet when he is able to take more of an oral diet. Currently he is on more of a liquid only diet at this point 4. Coronary disease-patient with significant coronary disease and multiple medications therefore. I think he would best continue on his beta-philippe plus oral long-acting nitrate therapy if we can get that into him at this point. 5. VTE prophylaxis-given the friability of his oral mucosa I am hesitant to give him anticoagulant at this point. I will use SCDs however. 6. Code status-patient appropriate for full code in the event of a sudden cardiac or respiratory arrest. He basically did not going to be kept alive in artificial setting is particularly afraid of having a stroke but if during this hospitalization some sudden event such as cardiac or respiratory arrest occurred he definitely would want to be given the chance to recover and so is appropriate for full code. 7. Patient's other medical problems including his chronic back pain with spinal stenosis his peripheral vascular disease and other more classic osteoarthritis are stable. Continue usual medications when patient is able to take them orally 8. Hepatitis/transaminitis-patient with elevated transaminase levels as well as bilirubin. Almost certainly secondary to the methotrexate. Patient is not a candidate to continue methotrexate will continue follow this along but expect this to improve. 9. Hypokalemia-patient will have his potassium replaced parenterally and recheck Time Spent With Patient Critical Care time: I spent a total of [] minutes of critical care time on this patient's care today; this time is exclusive of procedural time.
[2021-07-11] MEDS: INSULIN LISPRO 100 UNIT/ML 3ML VIAL SUBCUT ×3 (14:48→20:57)
[2021-07-11] MEDS: METOPROLOL TARTRATE 5 MG/5 ML INJ IV ×2 (15:17→20:56)
[2021-07-11] MEDS: POTASSIUM CHLORIDE IN WATER 10 MEQ/100 ML PIGGYBACK 100 MEQ IV ×4 (15:30→21:40)
--- NOTE | 2021-07-11 17:03 | PC.NURSE ---
First bag of Potassium 100mEq started at 1530 is still infusing due to the peripheral IV becoming frequently occluded. This Rn placed a new IV in order to infuse IV medication at a consistent rate.
[2021-07-11] MEDS: ISOSORBIDE DINITRATE 10 MG TABLET 20 MG PO (20:57)
[2021-07-12] VITALS: BP 164/84; PULSE 91; RESP 22; TEMP 36.4; O2SAT 97
[2021-07-12] MEDS: POTASSIUM CHLORIDE IN WATER 10 MEQ/100 ML PIGGYBACK 100 MEQ IV ×2 (00:35→00:38)
[2021-07-12] MEDS: LIDOCAINE VISCOUS 2% 30 ML, MAG HYDROX/ALUMINUM/SIMETH SUS 30 ML, NYSTATIN SUSP 3,000,0... MM ×6 (00:38→23:26)
[2021-07-12] MEDS: METOPROLOL TARTRATE 5 MG/5 ML INJ IV ×4 (03:25→20:31)
[2021-07-12] MEDS: DEXTROSE 5%-0.45NS W/KCL 20MEQ 1,000 ML 125 MEQ IV (03:29)
[2021-07-12 05:12] LABS: Alanine Aminotransferase 68 IU/L (<50); Albumin 4.1 g/dL (3.5-5.0); Albumin Globulin Ratio 1.3 (1.0-2.8); Alkaline Phosphatase 95 U/L (38-126); Aspartate Aminotransferase 69 IU/L (17-59); BUN Creatinine Ratio 22.7 (6-22); Bilirubin Unconjugated 0.7 mg/dL (0.0-1.1); Blood Urea Nitrogen 29 mg/dL (9-20); Calcium 8.6 mg/dL (8.4-10.2); Carbon Dioxide 23 mmol/L (22-32); Chloride 100 mmol/L (98-107); Estimated Glomerular Filt Rate 57 mL/min (>60); Globulin 3.2 g/dL (1.7-4.1); Glucose 290 mg/dL (80-110); HEMOLYSIS < 15 (0-50); Potassium 3.5 mmol/L (3.4-5.1); Sodium 133 mmol/L (137-145); Total Protein 7.3 g/dL (6.3-8.2)
[2021-07-12 07:30] VITALS: BP 160/77; PULSE 75; RESP 18; TEMP 35.8; O2SAT 98
--- NOTE | 2021-07-12 07:50 | P.PN_ITS ---
Subjective Subjective Date Patient Seen: 07/12/21 Time Patient Seen: 07:50 Interval history: Patient finally is in room in the main hospital out of the ER Still having a fair amount of pain and discomfort. Still not able to take more than very small amounts of some liquids. Really nothing new or different otherwise Blood sugars have been elevated quite significantly 350+ at times Blood pressure also elevated with increasing heart rate Exam Vital Signs (past 8 hours): - 07/12/21 00:00 Temperature 97.5 F L Pulse Rate 91 H Respiratory Rate 22 Blood Pressure 164/84 H Pulse Oximetry 97 Oxygen Delivery Method Room Air Oxygen Flow Rate 0 Objective Labs Result Diagrams: 07/11/21 05:45 07/12/21 04:38 Labs: Laboratory Results - last 24 hr 07/12/21 04:38 Sodium 133 L Potassium 3.5 Chloride 100 Carbon Dioxide 23 BUN 29 H Creatinine 1.28 H Estimated GFR 57 L BUN/Creatinine Ratio 22.7 H Glucose 290 H Calcium 8.6 Total Bilirubin 1.0 Conjugated Bilirubin 0.0 Unconjugated Bilirubin 0.7 AST 69 H ALT 68 H Alkaline Phosphatase 95 Total Protein 7.3 Albumin 4.1 Globulin 3.2 Albumin/Globulin Ratio 1.3 PFSH Medical History Benign prostatic hyperplasia with urinary obstruction (03/25/15) BPH w urinary obs/LUTS Chronic back pain (1989) Coronary artery disease involving [place] coronary artery of [place] heart without angina pectoris (1995) Depression Diabetes Essential hypertension Family history of prostate cancer Femur fracture (1965) Fracture (1951) Gilbert's syndrome Hayfever (1999) Hepatitis A (1963) HLD (hyperlipidemia) Incomplete bladder emptying Melanoma (1987) Mild claudication Mixed hyperlipidemia Peripheral vascular disease (2009) Polymyalgia rheumatica (08/30/15) Primary osteoarthritis of both hips (08/30/15) Recurrent falls Shoulder pain (2011) Spinal stenosis Tinnitus Type 2 diabetes mellitus without complication (06/20/15) Urge urinary incontinence Surgical History History of appendectomy History of coronary artery stent placement History of orthopedic surgery (1965) Status post appendectomy (1956) Status post coronary artery bypass graft (1995) Family History Father Colon cancer Prostate enlargement Bladder cancer History of hip surgery Pneumonia History of prostate surgery Mother Diabetes mellitus Heart disease Hypertension High cholesterol Osteoporosis History of cataract surgery H/O heart bypass surgery Arthritis Grandfather Arthritis Prostate cancer Colon cancer Deaf Legally blind Grandmother Diabetes mellitus Hypertension Angina pectoris Heart disease Osteoporosis Social History marital status: number of children: 0 household members: spouse lives independently: Yes caregiver/support person: No housing: house pets and animals: Yes education level: other occupational status: other 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 Stomatitis-hopefully will continue to improve slowly be able to take more or al both nutrition and hydration as well as medication. No other specific intervention at this time. Given the significant hyperglycemia I am going to cut back on his IV dexamethasone dosing 2. Polyarthritis-patient will continue on high-dose IV steroids which should help with this. The steroids are primarily for the stomatitis however 3. Type 2 diabetes-patient's blood sugars are quite elevated. Patient has been receiving dextrose in his IV at a relatively rapid rate. I am going to disco ntinue the dextrose in the IV for now and reduce his parental steroids and will follow his numbers. I am going to hold off on any long-acting insulin for now. 4. Hypertension-patient quite hypertensive without his usual medications. Receiving IV metoprolol. Will add topical nitrates which is something he normally takes a long-acting form orally anyway. 5. Coronary artery disease-patient off most of his usual medications. Receiving relatively low-dose parental beta-blockers and will add topical nitrates as above. Patient does take long-acting nitrates orally on a long-term basis anyway 6. Transaminitis-patient's numbers are essentially unchanged. Continue to trend over time 7. Hypokalemia-patient barely back to normal. Will continue to monitor. Still not really able to take anything orally. Plan to recheck with magnesium tomorrow as well Note: Greater than 30 minutes total time was spent on day of service, evaluating the patient on the floor, including examining the patient, discussing clinical course with clinical and nursing staff, reviewing clinical course in the computer, preparing documentation and writing orders for continued management of care, discussing status with family as appropriate, reviewing plans for the next 24 hours with both patient/family and nursing staff as appropriate. COVID-19 COVID-19 status: Negative
[2021-07-12] MEDS: INSULIN LISPRO 100 UNIT/ML 3ML VIAL SUBCUT ×3 (09:17→17:32)
--- NOTE | 2021-07-12 09:18 | DIET.CONS ---
Dietary Consultation Note Admission Date: 07/11/2021 10:57 Assessment: 81y M admitted for allergic reaction causing edema to mouth and throat screened by RD for difficulty eating and elevated BGs. Pt seen by CDE for DM education in 2019, current A1c 7.9 however BGs this hospitalization >200. Pt on soft, low residue diet, this RD will change to Dysphagia Advanced as fiber reduced diet not helpful for BG control, will also assign CCD4 for carb restricted diet. Pt often drinks Premier Protein shakes at home, sending ONS Ensure Max c lunch to support protein intake for mouth sore healing. Recc adjustment to insulin therapy for BGs in 140-180 range to support wound healing. Ht: 182.88 cm Wt: 104.355 kg BMI: 32.5 UBW: Last BM: 07/09/21 (07/11/21 18:00) MNA: 13 Freddy Score: 23 Diet: 07/11/21 Breakfast Soft,Low Fiber (Low residue) Diet Diet Modifications: ensure max c lunches Nutrition Percent Meal Consumed refused dinner 07/11/21 18:00 Labs: RBC 3.92 X10^6/uL (4.5-5.9) L 07/11/21 05:45 Hgb 10.9 g/dL (13.5-17.5) L 07/11/21 05:45 Hct 32.6 % (41-53) L 07/11/21 05:45 Creatinine 1.28 mg/dL (0.66-1.25) H 07/12/21 04:38 Electronically Signed by: Claudia Middleton 07/12/21 09:18 Clinical Dietitian [address] [id number]
[2021-07-12 09:19] VITALS: BP 160/77; PULSE 75
[2021-07-12] MEDS: NITROGLYCERIN OINT 1 INCH/GM OINT...G. 0.5 INCH TOP ×2 (09:19→15:00)
[2021-07-12] MEDS: HYDROMORPHONE 0.5 MG INJ IV ×5 (10:08→23:32)
[2021-07-12] MEDS: LACTATED RINGERS 1,000 ML 100 ML IV ×2 (11:07→22:18)
[2021-07-12 15:00] VITALS: BP 159/94; PULSE 89
--- NOTE | 2021-07-12 16:00 | CM.DANOTE ---
Initial DCP Assessment Note Pt is a 81 yo male, resident of [place], presents after several days of increasing mouth discomfort and inability to support hydration and nutrition. Admitted for medical management of Stomatitis PCP: Matt Medina Payer: MAHENDRA/Claus Reviewed chart, pt discussed in multidisciplinary rounds this morning. Reviewed Dr Medina' prog note DC likely w/in 24-48 hrs pending improvement in presenting issues. Patient will likely return home w/spouse w/no needs from CM team. No needs expected from DC planning team although will remain available in case this changes before DC. NASIM Watters Discharge Planning/Care Management CM Discharge Assessment Start: 07/11/21 16:50 Freq: Status: Active Protocol: Document 07/11/21 16:51 HS (Rec: 07/11/21 16:52 HS [id number]) Discharge Planning Assessment Advance Directives? Yes History Provided By Patient,Medical Record Has Patient been admitted in last 30 No days? Independent with ADL's Yes Is patient alert and oriented? Yes Discharge Plan Home Transportation Arrangement Spouse Referrals Initiated None needed Document 07/12/21 14:59 JW (Rec: 07/12/21 16:00 JW [id number]) Discharge Planning Assessment Assigned Grain [employer]or NASIM aLfleur DPOA/Assigned Designee Name Vicky Barbour, spouse Contact Information [phone] Advance Directives? Yes Advance Directives on File Yes History Provided By Patient,Significant Other, Medical Record Has Patient been admitted in last 30 No days? Prior Living Arrangements House Household Members spouse Type of transporation used prior to Drives own vehicle admit Independent with ADL's Yes Is patient alert and oriented? Yes Barriers to Discharge No Comment None identified at this time, following closely. 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
--- NOTE | 2021-07-12 18:55 | PC.NURSE ---
Pt is A&Ox3, VSS, afebrile on RA. LS CTA. BS +X4 abdomen distended and firm. He reports his last bowel movement last time I had a full meal, maybe a week ago. Patient asked Patient c/o it being too painful to swallow any medications or food today before MD Medina evaluating patient this a.m. Received orders for PRN 0.5mg IV dilaudid and patient is able to take some sips of ensure and broth and water today. He ambulates to the bathroom, SBA with cane. at bedside this afternoon, supportive she left home in the evening. Left a voicemail to call back this RN for medication reconciling as when patient asked he does is not able to recall all of his meds on current med list left and dosing/schedule. Continuous monitoring.
[2021-07-12 20:28] VITALS: BP 144/72; PULSE 71; RESP 16; TEMP 36.4; O2SAT 94
[2021-07-12 20:31] VITALS: BP 144/72; PULSE 71
[2021-07-12 20:36] LABS: HSV I/II IgM <0.91 Ratio (0.00-0.90)
[2021-07-13] MEDS: LIDOCAINE VISCOUS 2% 30 ML, MAG HYDROX/ALUMINUM/SIMETH SUS 30 ML, NYSTATIN SUSP 3,000,0... MM ×9 (02:29→22:51)
[2021-07-13] MEDS: METOPROLOL TARTRATE 5 MG/5 ML INJ IV ×4 (02:30→21:01)
[2021-07-13 02:31] VITALS: BP 139/70; PULSE 89
[2021-07-13] MEDS: HYDROMORPHONE 0.5 MG INJ IV ×4 (04:52→22:54)
[2021-07-13 06:58] LABS: Alanine Aminotransferase 64 IU/L (<50); Albumin 3.8 g/dL (3.5-5.0); Albumin Globulin Ratio 1.3 (1.0-2.8); Alkaline Phosphatase 83 U/L (38-126); Aspartate Aminotransferase 70 IU/L (17-59); BUN Creatinine Ratio 23.4 (6-22); Bilirubin Unconjugated 0.7 mg/dL (0.0-1.1); Blood Urea Nitrogen 34 mg/dL (9-20); Calcium 8.6 mg/dL (8.4-10.2); Carbon Dioxide 27 mmol/L (22-32); Chloride 103 mmol/L (98-107); Estimated Glomerular Filt Rate 49 mL/min (>60); Globulin 2.9 g/dL (1.7-4.1); Glucose 188 mg/dL (80-110); HEMOLYSIS < 15 (0-50); Potassium 3.5 mmol/L (3.4-5.1); Sodium 137 mmol/L (137-145); Total Protein 6.7 g/dL (6.3-8.2)
--- NOTE | 2021-07-13 07:44 | P.PN_ITS ---
Subjective Subjective Date Patient Seen: 07/13/21 Time Patient Seen: 07:45 Interval history: Pretty uneventful day Blood sugars are better without the infusing dextrose Blood tests are essentially unchanged. Renal function remains stable LFTs still minimally abnormal sodium somewhat better Patient reports his mouth actually feels worse. Exam Vital Signs (past 8 hours): - 07/13/21 02:31 Pulse Rate 89 Blood Pressure 139/70 Oxygen Delivery Method Room Air Oxygen Flow Rate 0 Narrative Exam Narrative: Oral mucosa that was quite erythematous with punctate lesions appears less erythematous and lesions are gone. However there is a whitish coating to his tongue and overall paleness to other parts of the oral mucosa Objective Labs Result Diagrams: 07/11/21 05:45 07/13/21 06:26 Labs: Laboratory Results - last 24 hr 07/10/21 07/13/21 07/13/21 16:42 06:26 06:26 Sodium 137 Potassium 3.5 Chloride 103 Carbon Dioxide 27 BUN 34 H Creatinine 1.45 H Estimated GFR 49 L BUN/Creatinine Ratio 23.4 H Glucose 188 H D Calcium 8.6 Magnesium Total Bilirubin 1.0 Conjugated Bilirubin 0.0 Unconjugated Bilirubin 0.7 AST 70 H ALT 64 H Alkaline Phosphatase 83 Total Protein 6.7 Albumin 3.8 Globulin 2.9 Albumin/Globulin Ratio 1.3 HSV I&II IgM (IFA) <0.91 07/13/21 06:26 Sodium Potassium Chloride Carbon Dioxide BUN Creatinine Estimated GFR BUN/Creatinine Ratio Glucose Calcium Magnesium 2.0 Total Bilirubin Conjugated Bilirubin Unconjugated Bilirubin AST ALT Alkaline Phosphatase Total Protein Albumin Globulin Albumin/Globulin Ratio HSV I&II IgM (IFA) [facility] Medical History Benign prostatic hyperplasia with urinary obstruction (03/25/15) BPH w urinary obs/LUTS Chronic back pain (1989) Coronary artery disease involving [place] coronary artery of [place] heart without angina pectoris (1995) Depression Diabetes Essential hypertension Family history of prostate cancer Femur fracture (1965) Fracture (2) Gilbert's syndrome Hayfever (1999) Hepatitis A (1963) HLD (hyperlipidemia) Incomplete bladder emptying Melanoma (1987) Mild claudication Mixed hyperlipidemia Peripheral vascular disease (2009) Polymyalgia rheumatica (08/30/15) Primary osteoarthritis of both hips (08/30/15) Recurrent falls Shoulder pain (2011) Spinal stenosis Tinnitus Type 2 diabetes mellitus without complication (06/20/15) Urge urinary incontinence Surgical History History of appendectomy History of coronary artery stent placement History of orthopedic surgery (1965) Status post appendectomy (1956) Status post coronary artery bypass graft (1995) Family History Father Colon cancer Prostate enlargement Bladder cancer History of hip surgery Pneumonia History of prostate surgery Mother Diabetes mellitus Heart disease Hypertension High cholesterol Osteoporosis History of cataract surgery H/O heart bypass surgery Arthritis Grandfather Arthritis Prostate cancer Colon cancer Deaf Legally blind Grandmother Diabetes mellitus Hypertension Angina pectoris Heart disease Osteoporosis Social History marital status: number of children: 0 household members: spouse lives independently: Yes caregiver/support person: No housing: house pets and animals: Yes education level: other occupational status: other 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 Stomatitis-patient not improved as yet. There are some minimal findings on exam today that make me think of a fungal infection and therefore I am going to add an oral topical antifungal for swish and spit. I would add parental fungal treatment as well accepted his LFTs are still minimally elevated. I am therefore not going to do that at this time anyway. May ask ENT to see him if not improving in the next 24-48 hours 2. Polyarthritis/PMR/? ? - on steroids at this time. Will not be restarting methotrexate 3. Type 2 diabetes-numbers are improved now were not infusing dextrose. Will need to address nutritional issues in the relatively short term future if his stomatitis does not improve significantly long him to have better oral nutrition 4. Hypertension-patient's numbers are improved over the last 12-18 hours. Con tinue current regimen 5. Coronary disease-continue with topical nitrates which have helped with both blood pressure and presumably replacing his oral long-acting nitrates 6. Transaminitis-patient's numbers centrally unchanged. Continue to monitor and trend over time. Probably recheck in 48-72 hours unless clinical issue arises to suggested should be done sooner 7. Hypokalemia-stable. Magnesium also normal. Note: Greater than 30 minutes total time was spent on day of service, evaluating the patient on the floor, including examining the patient, discussing clinical course with clinical and nursing staff, reviewing clinical course in the computer, preparing documentation and writing orders for continued management of care, discussing status with family as appropriate, reviewing plans for the next 24 hours with both patient/family and nursing staff as appropriate.
[2021-07-13 08:10] VITALS: BP 128/56; PULSE 86; RESP 16; TEMP 36.6; O2SAT 95
[2021-07-13] MEDS: DEXAMETHASONE 10 MG/ML VIAL 4 MG IV (08:23)
[2021-07-13] MEDS: LACTATED RINGERS 1,000 ML 100 ML IV ×2 (08:28→18:58)
[2021-07-13] MEDS: INSULIN LISPRO 100 UNIT/ML 3ML VIAL SUBCUT (12:13)
[2021-07-13 15:34] VITALS: BP 128/56
--- NOTE | 2021-07-13 15:34 | CM.DPNOTE ---
DCP Note Met w/patient and spouse Vicky today to review DCP. Patient eager to return home, spouse Vicky states she plans to assist once patient home, requests a medical update from Dr Medina tomorrow (Dr Medina notified) Patient/spouse deny need for HH services at this time Plan: DC home w/spouse is expected once medically cleared CM team will plan to follow closely in case any DC needs or concerns arise before DC JW
--- NOTE | 2021-07-13 15:43 | PC.NURSE ---
Pt resting @ intervals. Med w/ viscous lido as needed SpO2 96% RA IVF infusing via pump into LFA as per orders. Call light w/in reach, bed alarm on for pt safety. Continue w/plan of care.
[2021-07-13 21:00] VITALS: BP 143/71; PULSE 78; RESP 20; TEMP 36.6; O2SAT 95
[2021-07-13] MEDS: NYSTATIN SUSP 500,000 UNIT/5 ML UDC 500000 UNIT PO (21:18)
[2021-07-14] MEDS: LIDOCAINE VISCOUS 2% 30 ML, MAG HYDROX/ALUMINUM/SIMETH SUS 30 ML, NYSTATIN SUSP 3,000,0... MM ×4 (02:33→17:16)
[2021-07-14 02:39] VITALS: BP 146/65; PULSE 85; RESP 18; TEMP 36.8; O2SAT 94
[2021-07-14] MEDS: METOPROLOL TARTRATE 5 MG/5 ML INJ IV ×4 (02:39→21:23)
[2021-07-14] MEDS: LACTATED RINGERS 1,000 ML 100 ML IV ×2 (05:50→17:28)
[2021-07-14] MEDS: HYDROMORPHONE 0.5 MG INJ IV ×3 (05:59→12:49)
[2021-07-14 07:30] VITALS: BP 140/64; PULSE 67; RESP 16; TEMP 36.8; O2SAT 96
--- NOTE | 2021-07-14 07:39 | P.PN_ITS ---
Subjective Subjective Date Patient Seen: 07/14/21 Time Patient Seen: 07:40 Interval history: Pretty uneventful day yesterday Was started on oral antifungal over my concerns about a possible fungal infection in his mouth Patient reports slight improvement in his overall pain and ability to ingested material. Still very limited but feels like today is the first day he can say he is better pretty confidently Exam Vital Signs (past 8 hours): - 07/14/21 02:39 Temperature 98.2 F Pulse Rate 85 Respiratory Rate 18 Blood Pressure 146/65 H Pulse Oximetry 94 Oxygen Delivery Method Room Air Oxygen Flow Rate 0 Objective Labs Result Diagrams: 07/11/21 05:45 07/13/21 06:26 [facility] Medical History Benign prostatic hyperplasia with urinary obstruction (03/25/15) BPH w urinary obs/LUTS Chronic back pain (1989) Coronary artery disease involving [place] coronary artery of [place] heart without angina pectoris (1995) Depression Diabetes Essential hypertension Family history of prostate cancer Femur fracture (1965) Fracture (1951) Gilbert's syndrome Hayfever (1999) Hepatitis A (1963) HLD (hyperlipidemia) Incomplete bladder emptying Melanoma (1987) Mild claudication Mixed hyperlipidemia Peripheral vascular disease (2009) Polymyalgia rheumatica (08/30/15) Primary osteoarthritis of both hips (08/30/15) Recurrent falls Shoulder pain (2011) Spinal stenosis Tinnitus Type 2 diabetes mellitus without complication (06/20/15) Urge urinary incontinence Surgical History History of appendectomy History of coronary artery stent placement History of orthopedic surgery (1965) Status post appendectomy (1956) Status post coronary artery bypass graft (1995) Family History Father Colon cancer Prostate enlargement Bladder cancer History of hip surgery Pneumonia History of prostate surgery Mother Diabetes mellitus Heart disease Hypertension High cholesterol Osteoporosis History of cataract surgery H/O heart bypass surgery Arthritis Grandfather Arthritis Prostate cancer Colon cancer Deaf Legally blind Grandmother Diabetes mellitus Hypertension Angina pectoris Heart disease Osteoporosis Social History marital status: number of children: 0 household members: spouse lives independently: Yes caregiver/support person: No housing: house pets and animals: Yes education level: other occupational status: other 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/gnosticism: None travel history: other leisure activities: other Smoking Status: Former smoker Tobacco: How many years used: 20 Smokeless tobacco user: other quit status: quit date established second hand exposure: No alcohol intake: current substance use type: does not use and marijuana Assessment & Plan Assessment & Plan narrative: 1. Stomatitis-minimally improved at this point but I think this is real improvement. Continue with current therapies including the IV steroids and the topical antifungal swish and spit therapy. On exam the mucosa is beginning to look more normal. Tongue is still coated with some sort of film. If not continuing to improve would suggest either in person or telephone consultation with the ENT about next steps 2. Polyarthritis/PMR/?? -continue IV steroids 3. Type 2 diabetes-numbers continue to be stable. Not really ingesting any calories at this point. Following with insulin as necessary. 4. Hypertension-adequate control with current IV metoprolol plus topical nitrates. No change in therapy for now. Hopefully we can get him back on his usual medications sooner rather than later 5. Transaminitis-will be rechecked tomorrow 6. Hypokalemia-plan to recheck numbers tomorrow Discussed with patient and spouse is current status. I am hopeful that in the next 24-48 hours he will be able to say he is notably improved and ingesting more and be very close to being able to be discharged home. If indeed methotrexate is the etiology for this stomatitis it is likely going to be an extended time before this improves as I pointed out to patient and spouse methotrexate is often dosed only once a week because of his long duration of action which in this case is the frustrating part of the slow improvement I believe. Note: Greater than 20 minutes total time was spent on day of service, evaluating the patient on the floor, including examining the patient, discussing clinical course with clinical and nursing staff, reviewing clinical course in the computer, preparing documentation and writing orders for continued management of care, discussing status with family as appropriate, reviewing plans for the next 24 hours with both patient/family and nursing staff as appropriate.
[2021-07-14] MEDS: INSULIN LISPRO 100 UNIT/ML 3ML VIAL SUBCUT ×3 (09:10→17:08)
[2021-07-14] MEDS: DEXAMETHASONE 10 MG/ML VIAL 4 MG IV (09:15)
[2021-07-14 09:16] VITALS: BP 140/67; PULSE 67
[2021-07-14] MEDS: NITROGLYCERIN OINT 1 INCH/GM OINT...G. 0.5 INCH TOP ×2 (09:16→17:06)
--- NOTE | 2021-07-14 15:24 | CM.DPC ---
DCP Cont: Per MD, pt seems to have made some slight improvement with IV-Abx and topical anti-fungal swish although pt has had limited intake of nutrition still. MD is hopeful that pt will continue to make improvements over the next 1-2 days and hopefully increase his nutritional intake towards d/c to home with spouse. If no significant improvements, will continue to consider ENT Consult. Plan: SW to follow closely for continued improvement for plan of home with spouse and any further identified discharge planning needs. NASIM Gutierrez
--- NOTE | 2021-07-14 16:32 | DIET.PN1 ---
Dietary Progress Note Assessment: Pt continues with poor PO. Also having some elevated BG 180-199mg/dL. Per staff, pt is sipping on ONS. Does not appear that he is finishing them daily. Kris was not able to answer many questions regarding his PO. Seemed somewhat confused/distracted. If PO poor for >5 days, may benefit from a form of nutrition support. Ht: 182.88 cm Wt: 105.5 kg BMI: 32.5 Last BM: 07/09/21 (07/11/21 18:00) MNA: 13 Freddy Score: 18 Diet: 07/12/21 Lunch Dysphagia Diet Diet Modifications: ONS Ensure Max c lunch Safety Tray needed?: No Liquid consistency: Normal/Thin Food texture: Dysphagia Advanced Nutrition Percent Meal Consumed 50% 07/12/21 18:00 Labs: RBC 3.92 X10^6/uL (4.5-5.9) L 07/11/21 05:45 Hgb 10.9 g/dL (13.5-17.5) L 07/11/21 05:45 Hct 32.6 % (41-53) L 07/11/21 05:45 Creatinine 1.45 mg/dL (0.66-1.25) H 07/13/21 06:26 Nutrition Diagnosis: Inadequate energy intake r/t mouth sores aeb staff reports of poor po Interventions: Daily weights please. Currently receiving ONS daily with lunch. Can increase ONS if pt able to consume. Cont encouraging intake. Monitoring/Evaluations: RD follow-up 3 days Electronically Signed by: Nikki Flores 07/14/21 16:32 Clinical Dietitian [address] [address]
[2021-07-14 17:01] VITALS: BP 145/78; PULSE 76; RESP 23; O2SAT 96
[2021-07-14 17:06] VITALS: BP 145/78; PULSE 76
[2021-07-14] MEDS: NYSTATIN SUSP 500,000 UNIT/5 ML UDC 500000 UNIT PO (17:19)
[2021-07-14 20:20] VITALS: BP 130/63; PULSE 65; RESP 16; TEMP 36.3; O2SAT 96
[2021-07-15] MEDS: LIDOCAINE VISCOUS 2% 30 ML, MAG HYDROX/ALUMINUM/SIMETH SUS 30 ML, NYSTATIN SUSP 3,000,0... MM ×7 (01:09→23:06)
[2021-07-15] MEDS: LACTATED RINGERS 1,000 ML 100 ML IV ×2 (01:17→13:38)
[2021-07-15] MEDS: HYDROMORPHONE 0.5 MG INJ IV ×4 (01:26→20:43)
[2021-07-15] MEDS: METOPROLOL TARTRATE 5 MG/5 ML INJ IV ×4 (03:03→20:55)
[2021-07-15 06:29] LABS: Alanine Aminotransferase 34 IU/L (<50); Albumin 3.4 g/dL (3.5-5.0); Albumin Globulin Ratio 1.1 (1.0-2.8); Alkaline Phosphatase 77 U/L (38-126); Aspartate Aminotransferase 27 IU/L (17-59); BUN Creatinine Ratio 21.4 (6-22); Bilirubin Total 1.1 mg/dL (0.2-1.3); Blood Urea Nitrogen 25 mg/dL (9-20); Calcium 8.4 mg/dL (8.4-10.2); Carbon Dioxide 28 mmol/L (22-32); Chloride 103 mmol/L (98-107); Estimated Glomerular Filt Rate > 60 mL/min (>60); Glucose 157 mg/dL (80-110); HEMOLYSIS < 15 (0-50); Magnesium 1.8 mg/dL (1.6-2.3); Potassium 3.3 mmol/L (3.4-5.1); Sodium 138 mmol/L (137-145); Total Protein 6.4 g/dL (6.3-8.2)
[2021-07-15 07:41] VITALS: BP 134/63; PULSE 66; RESP 14; TEMP 37; O2SAT 94
--- NOTE | 2021-07-15 11:03 | P.PN_ITS ---
Subjective Subjective Date Patient Seen: 07/15/21 Time Patient Seen: 09:50 Interval history: This morning the pt reports feeling minimally improved. He has been able to drink some water. He mainly complains of throat pain. He cannot tell if his mouth feels much better or not. He denies any chest pain, SOB, abdominal pain. He states he does not have any appetite. Exam Vital Signs (past 8 hours): - 07/15/21 07:41 Temperature 98.6 F Pulse Rate 66 Respiratory Rate 14 Blood Pressure 134/63 Pulse Oximetry 94 Oxygen Delivery Method Room Air Oxygen Flow Rate 0 Narrative Exam Narrative: Gen: NAD, sitting comfortably at edge of bed, speaking easily in complete sentences HEENT: mouth with slightly peeling mucosa on lips and cheeks, lips appear swollen, white film on tongue mild, able to open mouth relatively well CV: RRR, grade 2/6 systolic murmur Resp: clear to auscultation bilaterally Ext: no edema Objective Labs Result Diagrams: 07/11/21 05:45 07/15/21 06:08 Labs: Laboratory Results - last 24 hr 07/15/21 06:08 Sodium 138 Potassium 3.3 L Chloride 103 Carbon Dioxide 28 BUN 25 H Creatinine 1.17 Estimated GFR > 60 BUN/Creatinine Ratio 21.4 Glucose 157 H Calcium 8.4 Magnesium 1.8 Total Bilirubin 1.1 Conjugated Bilirubin 0.0 Unconjugated Bilirubin 1.0 AST 27 ALT 34 Alkaline Phosphatase 77 Total Protein 6.4 Albumin 3.4 L Globulin 3.0 Albumin/Globulin Ratio 1.1 PFS Medical History Benign prostatic hyperplasia with urinary obstruction (03/25/15) BPH w urinary obs/LUTS Chronic back pain (1989) Coronary artery disease involving [place] coronary artery of [place] heart without angina pectoris (1995) Depression Diabetes Essential hypertension Family history of prostate cancer Femur fracture (1965) Fracture (2) Gilbert's syndrome Hayfever (1999) Hepatitis A (1963) HLD (hyperlipidemia) Incomplete bladder emptying Melanoma (1987) Mild claudication Mixed hyperlipidemia Peripheral vascular disease (2009) Polymyalgia rheumatica (08/30/15) Primary osteoarthritis of both hips (08/30/15) Recurrent falls Shoulder pain (2011) Spinal stenosis Tinnitus Type 2 diabetes mellitus without complication (06/20/15) Urge urinary incontinence Surgical History History of appendectomy History of coronary artery stent placement History of orthopedic surgery (1965) Status post appendectomy (1956) Status post coronary artery bypass graft (1995) Family History Father Colon cancer Prostate enlargement Bladder cancer History of hip surgery Pneumonia History of prostate surgery Mother Diabetes mellitus Heart disease Hypertension High cholesterol Osteoporosis History of cataract surgery H/O heart bypass surgery Arthritis Grandfather Arthritis Prostate cancer Colon cancer Deaf Legally blind Grandmother Diabetes mellitus Hypertension Angina pectoris Heart disease Osteoporosis Social History marital status: number of children: 0 household members: spouse lives independently: Yes caregiver/support person: No housing: house pets and animals: Yes education level: other occupational status: other 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/religious: None travel history: other leisure activities: other Smoking Status: Former smoker Tobacco: How many years used: 20 Smokeless tobacco user: other quit status: quit date established second hand exposure: No alcohol intake: current substance use type: does not use and marijuana Assessment & Plan Assessment & Plan narrative: Pt is a 81yo man with DM type 2, HTN, autoimmune polyarthritis, CAD who presented with significant mouth pain after being started on Methotrexate. 1.? Stomatitis: Does seem to be improving, however pt feels still minimal. Based on appearance alone, believe should be able to advance diet some today. - Continue IV Decadron - Continue Nystatin swish and spit for potential fungal element on tongue - Encourage PO intake today, potentially gradually advancing diet - Hopeful may be able to start PO medications tomorrow - Continue mIVF 2. Polyarthritis/PMR/Unclear diagnosis: - Continue IV steroids 3. Type 2 diabetes: Blood sugars slightly elevated, but not severely so. Continues without any caloric intake. - Continue short-acting sliding scale with sugar checks 4.? Hypertension: Control adequate. - Continue IV Metoprolol, Topical nitrates - Hopeful can restart PO medications tomorrow 5.? Transaminitis: Normalized, stable. 6.? Hypokalemia: 3.2 this morning - Potassium rider today - Plan to recheck tomorrow FEN: Dysphagia diet as tolerated Code: Full DVT ppx: SCDs, pt mobile Dispo: Pending improvement in PO intake. Potential d/c tomorrow but more likely in 2 days. Should be stable to d/c home. Time Spent With Patient Critical Care time: I spent a total of [] minutes of critical care time on this patient's care today; this time is exclusive of procedural time.
[2021-07-15] MEDS: NYSTATIN SUSP 500,000 UNIT/5 ML UDC 500000 UNIT PO (11:06)
[2021-07-15] MEDS: INSULIN LISPRO 100 UNIT/ML 3ML VIAL SUBCUT ×3 (11:07→17:19)
[2021-07-15] MEDS: NITROGLYCERIN OINT 1 INCH/GM OINT...G. 0.5 INCH TOP ×2 (11:46→17:20)
[2021-07-15] MEDS: POTASSIUM CHLORIDE IN WATER 10 MEQ/100 ML PIGGYBACK 100 MEQ IV ×2 (12:34→13:38)
[2021-07-15 19:30] VITALS: BP 164/81; PULSE 77; RESP 18; TEMP 36.3; O2SAT 94
[2021-07-16] MEDS: LIDOCAINE VISCOUS 2% 30 ML, MAG HYDROX/ALUMINUM/SIMETH SUS 30 ML, NYSTATIN SUSP 3,000,0... MM ×8 (01:50→23:46)
[2021-07-16] MEDS: LACTATED RINGERS 1,000 ML 100 ML IV ×3 (03:16→23:44)
[2021-07-16] MEDS: METOPROLOL TARTRATE 5 MG/5 ML INJ IV ×4 (03:16→23:41)
[2021-07-16 05:58] LABS: BUN Creatinine Ratio 18.5 (6-22); Blood Urea Nitrogen 20 mg/dL (9-20); Calcium 8.4 mg/dL (8.4-10.2); Carbon Dioxide 29 mmol/L (22-32); Chloride 100 mmol/L (98-107); Estimated Glomerular Filt Rate > 60 mL/min (>60); Glucose 158 mg/dL (80-110); HEMOLYSIS < 15 (0-50); Potassium 3.4 mmol/L (3.4-5.1); Sodium 136 mmol/L (137-145)
[2021-07-16 07:00] VITALS: BP 159/66; PULSE 71; RESP 16; TEMP 36.4; O2SAT 96
--- NOTE | 2021-07-16 10:20 | PM.PN.1 ---
Subjective Subjective Date Patient Seen: 07/16/21 Time Patient Seen: 08:30 Interval history: The pt this morning reports minimal improvement. He was able to eat ice cream twice yesterday, however, and has been drinking small amounts of Ensure. He has continued to take sips of water as well. He denies any chest pain, SOB, abdominal pain. He continues to report throat and mouth pain. Exam Vital Signs (past 8 hours): - 07/16/21 07:00 Temperature 97.6 F Pulse Rate 71 Respiratory Rate 16 Blood Pressure 159/66 H Pulse Oximetry 96 Oxygen Delivery Method Room Air Oxygen Flow Rate 0 Narrative Exam Narrative: Gen:? NAD, lying comfortably in bed, speaking easily in complete sentences HEENT:? mouth with slightly peeling mucosa on lips and cheeks, erythematous palate, swelling of lips significantly improved from yesterday, white film on tongue mild, able to open mouth wide - improved from yesterday CV:? RRR, grade 2/6 systolic murmur Resp:? clear to auscultation bilaterally Ext:? no edema Objective Labs Result Diagrams: 07/11/21 05:45 07/16/21 05:33 Labs: Laboratory Results - last 24 hr 07/16/21 05:33 Sodium 136 L Potassium 3.4 Chloride 100 Carbon Dioxide 29 BUN 20 Creatinine 1.08 Estimated GFR > 60 BUN/Creatinine Ratio 18.5 Glucose 158 H Calcium 8.4 PFSH Medical History Benign prostatic hyperplasia with urinary obstruction (03/25/15) BPH w urinary obs/LUTS Chronic back pain (1989) Coronary artery disease involving [place] coronary artery of [place] heart without angina pectoris (1995) Depression Diabetes Essential hypertension Family history of prostate cancer Femur fracture (1965) Fracture (1951) Gilbert's syndrome Hayfever (1999) Hepatitis A (1963) HLD (hyperlipidemia) Incomplete bladder emptying Melanoma (1987) Mild claudication Mixed hyperlipidemia Peripheral vascular disease (2009) Polymyalgia rheumatica (08/30/15) Primary osteoarthritis of both hips (08/30/15) Recurrent falls Shoulder pain (2011) Spinal stenosis Tinnitus Type 2 diabetes mellitus without complication (06/20/15) Urge urinary incontinence Surgical History History of appendectomy History of coronary artery stent placement History of orthopedic surgery (1965) Status post appendectomy (1956) Status post coronary artery bypass graft (1995) Family History Father Colon cancer Prostate enlargement Bladder cancer History of hip surgery Pneumonia History of prostate surgery Mother Diabetes mellitus Heart disease Hypertension High cholesterol Osteoporosis History of cataract surgery H/O heart bypass surgery Arthritis Grandfather Arthritis Prostate cancer Colon cancer Deaf Legally blind Grandmother Diabetes mellitus Hypertension Angina pectoris Heart disease Osteoporosis Social History marital status: number of children: 0 household members: spouse lives independently: Yes caregiver/support person: No housing: house pets and animals: Yes education level: other occupational status: other 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/buddhist: None travel history: other leisure activities: other Smoking Status: Former smoker Tobacco: How many years used: 20 Smokeless tobacco user: other quit status: quit date established second hand exposure: No alcohol intake: current substance use type: does not use and marijuana Assessment & Plan Assessment & Plan narrative: Pt is a 81yo man with DM type 2, HTN, autoimmune polyarthritis, CAD who presented with significant mouth pain after being started on Methotrexate.? 1.? Stomatitis:? Does seem to be improving, however pt feels still minimal.? Does appear significantly improved from yesterday, and pt was able to tolerate minimal PO yesterday. The pt is seeming rather down about his ongoing hospitalization, suspect this is contributing to his slow improvement as well. - Continue IV Decadron - Continue Nystatin swish and spit for potential fungal element on tongue - Continue to encourage more PO intake today - Continue mIVF - Encouraged the pt to walk the halls today, get out of bed, shower, change clothes, etc - Discussed home medications with pharmacy. All except Potassium can be crushed, and this could be changed to liquid form. It tolerating enough PO today, can trial crushing medications to allow for normal home meds to be re-instituted. 2. Polyarthritis/PMR/Unclear diagnosis:? - Continue IV steroids 3.? Type 2 diabetes:? Blood sugars slightly elevated, but not severely so. - Continue short-acting sliding scale with sugar checks 4.? Hypertension:? Control adequate, not in goal range but short-term is acceptable due to need for IV medications currently. - Continue IV Metoprolol, Topical nitrates - Hopeful can restart PO medications tomorrow 5.? Transaminitis:? Normalized, stable. 6.? Hypokalemia:? Normalized this morning - Daily BMP FEN:? Dysphagia diet as tolerated Code:? Full DVT ppx:? SCDs, pt mobile Dispo:? Pending improvement in PO intake, ability to take medications at home. As above, majority could be crushed as well. Hopeful for d/c in the next 1-2 days. Time Spent With Patient Critical Care time: I spent a total of [] minutes of critical care time on this patient's care today; this time is exclusive of procedural time.
[2021-07-16 10:33] VITALS: BP 159/66
[2021-07-16] MEDS: DEXAMETHASONE 4 MG/ML VIAL IV (10:33)
[2021-07-16] MEDS: NITROGLYCERIN OINT 1 INCH/GM OINT...G. 0.5 INCH TOP ×2 (10:33→15:45)
[2021-07-16] MEDS: NYSTATIN SUSP 500,000 UNIT/5 ML UDC 500000 UNIT PO ×3 (10:34→21:23)
[2021-07-16] MEDS: HYDROMORPHONE 0.5 MG INJ IV ×2 (10:58→23:45)
[2021-07-16 12:58] VITALS: BP 147/68; PULSE 64; RESP 16; TEMP 36.3; O2SAT 93
[2021-07-16 15:45] VITALS: BP 147/68
[2021-07-16] MEDS: INSULIN LISPRO 100 UNIT/ML 3ML VIAL SUBCUT (17:30)
[2021-07-16 19:00] VITALS: BP 133/71; PULSE 70; RESP 16; TEMP 36.4; O2SAT 96
[2021-07-17] VITALS (7 sets, daily range): BP systolic 116–149; BP diastolic 53–62; PULSE 62–95; RESP 16–18; TEMP 36.1–37.1; O2SAT 94–95
[2021-07-17] MEDS: METOPROLOL TARTRATE 5 MG/5 ML INJ IV ×3 (04:13→16:29)
[2021-07-17] MEDS: LIDOCAINE VISCOUS 2% 30 ML, MAG HYDROX/ALUMINUM/SIMETH SUS 30 ML, NYSTATIN SUSP 3,000,0... MM ×6 (04:13→20:18)
[2021-07-17] MEDS: HYDROMORPHONE 0.5 MG INJ IV (04:18)
[2021-07-17 06:15] LABS: BUN Creatinine Ratio 17.8 (6-22); Blood Urea Nitrogen 19 mg/dL (9-20); Calcium 8.1 mg/dL (8.4-10.2); Carbon Dioxide 28 mmol/L (22-32); Chloride 103 mmol/L (98-107); Estimated Glomerular Filt Rate > 60 mL/min (>60); Glucose 140 mg/dL (80-110); HEMOLYSIS < 15 (0-50); Potassium 3.8 mmol/L (3.4-5.1); Sodium 134 mmol/L (137-145)
--- NOTE | 2021-07-17 08:38 | PM.PN.1 ---
Subjective Subjective Date Patient Seen: 07/17/21 Time Patient Seen: 08:39 Interval history: Patient is continuing to have increased oral intake. Tolerating smoothies and some other liquidy substances and taking small volumes at anyone time Still is not been really up out of bed has not had a shower has had a couple bowel movements but not been very ambulatory at all Patient to this point has declined options to take his oral medications crest in some sort of vehicle such as applesauce or yogurt or something Exam Vital Signs (past 8 hours): - 07/17/21 05:14 07/17/21 07:00 Temperature 96.9 F L 98.7 F Pulse Rate 64 62 Respiratory Rate 16 17 Blood Pressure 149/62 H 140/56 L Pulse Oximetry 94 95 Oxygen Delivery Method Room Air Oxygen Flow Rate 0 Narrative Exam Narrative: Oral mucosa is in healing process it appears with decreased erythema and white coating on tongue is absent Objective Labs Result Diagrams: 07/11/21 05:45 07/17/21 05:34 Labs: Laboratory Results - last 24 hr 07/17/21 05:34 Sodium 134 L Potassium 3.8 Chloride 103 Carbon Dioxide 28 BUN 19 Creatinine 1.07 Estimated GFR > 60 BUN/Creatinine Ratio 17.8 Glucose 140 H Calcium 8.1 L PFSH Medical History Benign prostatic hyperplasia with urinary obstruction (03/25/15) BPH w urinary obs/LUTS Chronic back pain (1989) 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) Depression Diabetes Essential hypertension Family history of prostate cancer Femur fracture (1965) Fracture (1951) Gilbert's syndrome Hayfever (1999) Hepatitis A (1963) HLD (hyperlipidemia) Incomplete bladder emptying Melanoma (1987) Mild claudication Mixed hyperlipidemia Peripheral vascular disease (2009) Polymyalgia rheumatica (08/30/15) Primary osteoarthritis of both hips (08/30/15) Recurrent falls Shoulder pain (2011) Spinal stenosis Tinnitus Type 2 diabetes mellitus without complication (06/20/15) Urge urinary incontinence Surgical History History of appendectomy History of coronary artery stent placement History of orthopedic surgery (1965) Status post appendectomy (1956) Status post coronary artery bypass graft (1995) Family History Father Colon cancer Prostate enlargement Bladder cancer History of hip surgery Pneumonia History of prostate surgery Mother Diabetes mellitus Heart disease Hypertension High cholesterol Osteoporosis History of cataract surgery H/O heart bypass surgery Arthritis Grandfather Arthritis Prostate cancer Colon cancer Deaf Legally blind Grandmother Diabetes mellitus Hypertension Angina pectoris Heart disease Osteoporosis Social History marital status: number of children: 0 household members: spouse lives independently: Yes caregiver/support person: No housing: house pets and animals: Yes education level: other occupational status: other 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/confucianism: None travel history: other leisure activities: other Smoking Status: Former smoker Tobacco: How many years used: 20 Smokeless tobacco user: other quit status: quit date established second hand exposure: No alcohol intake: current substance use type: does not use and marijuana Assessment & Plan Assessment & Plan narrative: 1. Stomatitis-I do believe this is improving both in appearance it looks to be in a healing phase although certainly still looks quite open raw and painful. He is able to swallow a bit more and he is encouraged to do this more and more more. Continue with IV Decadron and nystatin swish and spit Continue with maintenance IV fluids for now anyway 2. Probably arthritis-Decadron is certainly helping with this and should allow him to be more ambulatory with less pain we discussed that a little bit and he would like to try that and see 3. Type 2 diabetes-numbers are not stellar but hopefully we can begin to back off on the Decadron etcetera continue with insulin coverage 4. Hypertension-adequate control for now. Not within goal for long-term but short term I think is acceptable. Hopefully patient can get back on his usual oral meds and we can discontinue the IV metoprolol which in my opinion is not as affective 5. Transaminitis-numbers seem to have normalized on last test from the . 6. Hypokalemia-numbers are improved and stable. Overall patient is improved and improving. He needs to increase his activity I discussed with him he needs to be up out of bed sitting in a chair if he is not walking. I encouraged him to walk normally around his room but around the hospital unit as well. I think that will help with his overall mental status and I think that will help improve his recovery. I think showering would also be quite beneficial. Hopefully he is within 24-48 hours to being able to be discharged home. I want to be sure he can take his meds and that he can support himself with hydration and nutrition in the home setting before he can be discharged Note: Greater than 30 minutes total time was spent on day of service, evaluating the patient on the floor, including examining the patient, discussing clinical course with clinical and nursing staff, reviewing clinical course in the computer, preparing documentation and writing orders for continued management of care, discussing status with family as appropriate, reviewing plans for the next 24 hours with both patient/family and nursing staff as appropriate.
[2021-07-17] MEDS: LACTATED RINGERS 1,000 ML 100 ML IV (09:07)
[2021-07-17] MEDS: carvediloL 12.5 MG TABLET 25 MG PO ×2 (09:08→20:41)
[2021-07-17] MEDS: NYSTATIN SUSP 500,000 UNIT/5 ML UDC 500000 UNIT PO ×2 (09:09→16:28)
[2021-07-17] MEDS: NITROGLYCERIN OINT 1 INCH/GM OINT...G. 0.5 INCH TOP ×2 (09:09→16:28)
[2021-07-17] MEDS: ISOSORBIDE DINITRATE 10 MG TABLET 20 MG PO ×3 (09:09→20:42)
[2021-07-17] MEDS: DEXAMETHASONE 4 MG/ML VIAL IV (09:25)
[2021-07-17] MEDS: INSULIN LISPRO 100 UNIT/ML 3ML VIAL SUBCUT ×3 (12:20→20:46)
[2021-07-17] MEDS: TAMSULOSIN 0.4 MG CAPSULE PO (20:42)
[2021-07-18] MEDS: TRAMADOL 50 MG TABLET PO (00:41)
[2021-07-18] MEDS: LIDOCAINE VISCOUS 2% 30 ML, MAG HYDROX/ALUMINUM/SIMETH SUS 30 ML, NYSTATIN SUSP 3,000,0... MM ×2 (00:41→07:20)
[2021-07-18 03:34] VITALS: BP 121/59; PULSE 57; RESP 16; TEMP 36; O2SAT 96
[2021-07-18 07:00] VITALS: BP 143/65; PULSE 61; RESP 18; TEMP 36; O2SAT 95
--- NOTE | 2021-07-18 08:42 | P.DS_ITS ---
History of Present Illness History of Present Illness Date Patient Seen: 07/18/21 Time Patient Seen: 08:42 Chief complaint: Allergic Reaction Narrative: 81-year-old male with complicated medical history who was started on methotrexate last week by Rheumatology for possible conversion of his PMR in to some sort of other systemic arthropathy. Over the last several days had increasing mouth discomfort to the point where he has been unable to take his meds and really eat or drink anything because of pain and discomfort. Came to the emergency department for evaluation found to be unable to support himself hydration and nutrition. Unclear as to the exact etiology although the timing strongly suggest the methotrexate since nothing else is new or different. Patient has had strong skin reaction to clopidogrel previously which is why he is on Brilinta instead for anti-platelet therapy given his cardiac history. In any event, I was consulted last evening and suggested that admission to hospital where there is Gastroenterology who can perform an upper endoscopy to fully evaluate for presence of esophagitis etcetera since his initial issues seem to be more swallowing than anything else would be entirely appropriate. However there are no available beds in any [facility] to allow for this. In that period of time he has improved slightly a is to the point where he is able to keep or least ingest some small amounts of fluids. Has been given a Magic mouthwash as well as IV dexamethasone with some minor improvement ER physician's of also discussed case with the rheumatology who does not feel like the methotrexate is the likely culprit for some reason. Gastroenterology was also not formally consulted but at least his case was discussed over the phone and they suggested there is really nothing more than supportive therapy that would be appropriate at this point and perhaps sometimes an ENT evaluation might be appropriate should he worsen or fail to improve Given lack of ability to find placement in any other facility he will be admitted to [facility] for continued conservative management and supportive therapy as above Discharge Providers Provider Date of admission: 07/13/21 15:35 Discharge Date: 07/18/21 Primary care physician: Matt Medina MD Consults: 07/11/21 18:22 Consult to Logging Superintendent Routine Comment: Discharge provider: Matt Medina MD Summary Hospital Course Discharge Diagnosis: 1. Adverse reaction to medication (adverse drug reaction) 2. Stomatitis with inability to eat 3. Transaminitis secondary to medication reaction 4. Acute dehydration, resolved 5. Diabetes type 2 with hyperglycemia 6. Essential hypertension 7. Coronary artery disease, stable 8. BPH with LUTS 9. Polymyalgia rheumatica 10. Peripheral vascular disease Hospital Course: Patient was admitted to the hospital as above. He was really unable to eat or drink anything because of severe inflammation in his mouth. He was rehydrated with IV fluids. He was continued on IV corticosteroids for his stomatitis. He was continued on a oral preparation with simethicone Maalox and nystatin as well as lidocaine. This was minimally helpful for his mouth. He had increased symptoms changes in his mouth consistent with possible yeast and additional nys tatin orally was added Patient's blood sugars were elevated initially his IV fluids were adjusted and he had improvement in his overall blood sugar Over the course of several days patient's stomatitis improved significantly to the point was able to take much more in the way of nutrition orally. Is eventually able to take his medications orally as well after crushing them with some sort of vehicle such as applesauce or yogurt. Patient as he was able to eat more and his mouth improved significantly became much more ambulatory up and around and eager to leave the hospital Patient with support himself nutritionally at time of discharge able to take his medications crushed at time of discharge and was felt to be stable to return home. His LFTs were monitored and did normalize during his hospitalization felt to be secondary to the methotrexate which is the culprit in causing all of the above issues in my opinion Patient will continue with oral prednisone upon discharge both to help calm his mouth as well as treatment for his PMR which is what the methotrexate was designed to treat as well Patient will need outpatient monitoring and hopefully dose reduction in his prednisone while managing his diabetes at the same time Patient eventually will need return to rheumatology for re-evaluation of treatment options for his autoimmune disease Exam Vital Signs (past 8 hours): - 07/18/21 03:34 07/18/21 07:00 Temperature 96.8 F L 96.8 F L Pulse Rate 57 L 61 Respiratory Rate 16 18 Blood Pressure 121/59 L 143/65 H Pulse Oximetry 96 95 Oxygen Delivery Method Room Air Oxygen Flow Rate 0 Objective Labs Result Diagrams: 07/11/21 05:45 07/17/21 05:34 [facility] Medical History Benign prostatic hyperplasia with urinary obstruction (03/25/15) BPH w urinary obs/LUTS Chronic back pain (1989) Coronary artery disease involving [place] coronary artery of [place] heart without angina pectoris (1995) Depression Diabetes Essential hypertension Family history of prostate cancer Femur fracture (1965) Fracture (1951) Gilbert's syndrome Hayfever (1999) Hepatitis A (1963) HLD (hyperlipidemia) Incomplete bladder emptying Melanoma (1987) Mild claudication Mixed hyperlipidemia Peripheral vascular disease (2009) Polymyalgia rheumatica (08/30/15) Primary osteoarthritis of both hips (08/30/15) Recurrent falls Shoulder pain (2011) Spinal stenosis Tinnitus Type 2 diabetes mellitus without complication (06/20/15) Urge urinary incontinence Surgical History History of appendectomy History of coronary artery stent placement History of orthopedic surgery (1965) Status post appendectomy (1956) Status post coronary artery bypass graft (1995) Family History Father Colon cancer Prostate enlargement Bladder cancer History of hip surgery Pneumonia History of prostate surgery Mother Diabetes mellitus Heart disease Hypertension High cholesterol Osteoporosis History of cataract surgery H/O heart bypass surgery Arthritis Grandfather Arthritis Prostate cancer Colon cancer Deaf Legally blind Grandmother Diabetes mellitus Hypertension Angina pectoris Heart disease Osteoporosis Social History marital status: number of children: 0 household members: spouse lives independently: Yes caregiver/support person: No housing: house pets and animals: Yes education level: other occupational status: other 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: None travel history: other leisure activities: other Smoking Status: Former smoker Tobacco: How many years used: 20 Smokeless tobacco user: other quit status: quit date established second hand exposure: No alcohol intake: current substance use type: does not use and marijuana Discharge Assessment & Plan Assessment and Plan Plan of Treatment: Patient to be discharged home to continue with the limited diet until his mouth is 100% improved Patient will take all of his usual medications crushing them as able Patient will continue on prednisone 20 mg a day until he can be seen in the clinic which point it could be adjusted downwards depending on his clinical course Discharge Plan Discharge Plan Patient Disposition: Home Discharge orders & Medications Prescriptions: New prednisone 20 mg tablet 20 mg PO DAILY Qty: 60 1RF nystatin 100,000 unit/mL Suspension 3,000,000 unit mucous membrane QID Qty: 500 1RF Rx Instructions: Mix with Lidocaine and Maalox Plus lidocaine HCl [Lidocaine Viscous] 2 % Solution 30 ml mucous membrane QID Qty: 100 0RF Rx Instructions: mix with nystatin and Maalox Plus alum-mag hydroxide-simeth [Mag-Al Plus] 200-200-20 mg/5 mL Suspension 30 ml mucous membrane QID Qty: 750 2RF Rx Instructions: mix with lidocaine and Nystatin Continued Brilinta 90 mg 90 mg PO BID 0RF metformin 1,000 mg tablet 1,000 mg PO BID Qty: 180 1RF Hold Instructions: diarrhea Rx Instructions: TAKE 1 TABLET BY MOUTH TWICE DAILY IN THE MORNING AND IN THE EVENING WITH MEALS sertraline 100 mg tablet 100 mg PO DAILY Qty: 90 3RF famotidine 20 mg tablet 20 mg PO BID Qty: 180 3RF tamsulosin [Flomax] 0.4 mg capsule 0.4 mg PO BID Qty: 180 1RF glipizide 10 mg tablet 10 mg PO DAILY Qty: 90 1RF hydrochlorothiazide 12.5 mg tablet 12.5 mg PO BID Qty: 180 1RF finasteride 5 mg tablet 5 mg PO DAILY Qty: 90 3RF potassium chloride 20 mEq tablet extended release 20 meq PO DAILY Qty: 90 4RF aspirin [Adult Low Dose Aspirin] 81 mg tablet,delayed release (DR/EC) 81 mg PO DAILY 0RF carvedilol 25 mg tablet 25 mg PO BID Qty: 60 0RF (DME) Dexcom G6 Transmitter Device See Rx Instructions ea .ROUTE .MEDSUPPLY Qty: 1 0RF Label Comments: FOR USE TO CONTINUOUSLY CHECK BLOOD SUGAR. CHANGE TRANSMITTER EVERY 3 MONTHS. Rx Instructions: As directed (DME) Dexcom G6 Sensor Device See Rx Instructions ea .ROUTE .MEDSUPPLY Qty: 3 0RF Label Comments: USE 1 DEVICE EVERY 10 DAYS Rx Instructions: As directed cilostazol 100 mg Tablet 100 mg PO BID 0RF isosorbide dinitrate 20 mg Tablet 20 mg PO BID 0RF Label Comments: PATIENT STATES HE IS NOT SURE IF HE STILL TAKES THIS MED. rosuvastatin 20 mg Tablet 20 mg PO DAILY 0RF acetaminophen [Tylenol] 325 mg Tablet 650 mg PO BID PRN (Reason: Pain, Mild) 0RF pioglitazone 30 mg Tablet 30 mg PO DAILY 0RF Ozempic 0.25 mg or 0.5 mg(2 mg/1.5 mL) pen injector See Rx Instructions .ROUTE .COMPLEX 0RF Label Comments: INJECT 0.5MG UNDER THE SKIN ONCE A WEEK Rx Instructions: 0.5 mg subcutaneously vitamin B complex [B Complex-Vitamin B12] Tablet 1 tab PO DAILY 0RF Discontinued Brilinta 90 mg tablet 90 mg PO BID 0RF Follow up/Referrals: Matt Medina MD [Primary Care Provider] - 1 Week (f/u with Dr. Erazo or [place] in 1 week, another with Dr. Medina in 3-4 weeks) Diet/Activity/Treatments Diet: Diet as Tolerated and Carb-consistent/Diabetic Discharge Data Primary Care Provider: Matt Medina
[2021-07-18 08:51] VITALS: BP 143/65; PULSE 61
[2021-07-18] MEDS: carvediloL 12.5 MG TABLET 25 MG PO (08:51)
[2021-07-18] MEDS: NYSTATIN SUSP 500,000 UNIT/5 ML UDC 500000 UNIT PO (08:51)
[2021-07-18] MEDS: ISOSORBIDE DINITRATE 10 MG TABLET 20 MG PO (09:02)
[2021-07-18] MEDS: TAMSULOSIN 0.4 MG CAPSULE PO (09:45)
--- NOTE | 2021-07-18 10:08 | PC.NURSE ---
Addendum entered by Kyleigh Brand R.N. 07/18/21 12:10: d/c instructions reviewed w/ patient and Vicky. Magic mouthwash and nystatin orders reveiwed. patient and state they understand the d/c instructions and MD f/u appts. sig page signed by patient, copy of this given to patient. left floor via w/c, wheeled down to private car, driven by his . Original Note: d/c instructions received from Dr. lainez. patient doing well this morning, at bedside. PIV was d/c'd on NOC shift. patient in good spirits, accepted meds crushed w/ smoothie. continues w/ sore mouth, this was covered w/ magic mouthwash and nystatin. remainder of magic mouthwash given to patient. d/c instructions reviewed w/ patient. he states he understands, has no pain/discomfort at this time. and is eager to go home.
== END 2021-07-18 11:32 | disposition home or self-care (01) | DRG 158 ==
LOC: ED 07-11 10:57 → AC 07-11 10:58
PROVIDERS: Emergency Medicine; Admitting Provider Internal Medicine; Emergency Provider Emergency Medicine; Family Provider Internal Medicine; PCP Internal Medicine; Referring Provider Emergency Medicine; Visit Provider Internal Medicine
DX: K12.1 Other forms of stomatitis (principal); B37.0 Candidal stomatitis; R74.01 Elevation of levels of liver transaminase levels; E87.6 Hypokalemia; T45.1X5A Adverse effect of antineoplastic and immunosuppressive drugs, initial encounter; D89.89 Other specified disorders involving the immune mechanism, not elsewhere classified; M35.3 Polymyalgia rheumatica; I25.10 Atherosclerotic heart disease of native coronary artery without angina pectoris; E11.65 Type 2 diabetes mellitus with hyperglycemia; I10 Essential (primary) hypertension; E86.0 Dehydration; N40.1 Benign prostatic hyperplasia with lower urinary tract symptoms; I73.9 Peripheral vascular disease, unspecified; F32.A Depression, unspecified; E78.5 Hyperlipidemia, unspecified; Z95.1 Presence of aortocoronary bypass graft; Z95.5 Presence of coronary angioplasty implant and graft; Z20.822 Contact with and (suspected) exposure to COVID-19; Z79.84 Long term (current) use of oral hypoglycemic drugs; Z87.891 Personal history of nicotine dependence
CPT/HCPCS: 36415; 80048; 80053; 80076; 81001; 82962; 83735; 85025; 86694; 87070; 87252; 87635; 87880; 96361; 96365; 96366; 96375; 96376; 99219; 99225; 99232; 99238; 99284; C9803; G0378; J1100; J1170; J1200; J1815

== ENCOUNTER → 2021-10-02 15:37 | Outpatient (CLI) | payer MEDICARE, OTHER, SELFPAY ==
[2021-07-11 18:00] VITALS: BMI 32.5
[2021-10-02 17:20] LABS: BUN Creatinine Ratio 14.9 (6-22); Blood Urea Nitrogen 18 mg/dL (9-20); Calcium 9.1 mg/dL (8.4-10.2); Carbon Dioxide 25 mmol/L (22-32); Chloride 101 mmol/L (98-107); Estimated Glomerular Filt Rate > 60 mL/min (>60); Glucose 283 mg/dL (80-110); HEMOLYSIS < 15 (0-50); Hemoglobin A1C% w Est Avg Glu 9.1 % (4.0-6.0); Sodium 137 mmol/L (137-145)
== END ==
PROVIDERS: Family Provider Internal Medicine; PCP Internal Medicine; Referring Provider Internal Medicine; Visit Provider Internal Medicine
DX: E11.65 Type 2 diabetes mellitus with hyperglycemia (principal); E78.2 Mixed hyperlipidemia; I10 Essential (primary) hypertension
CPT/HCPCS: 36415; 80048; 83036

== ENCOUNTER 2021-10-29 13:02 | Observation (INO) | payer MEDICARE, OTHER, SELFPAY ==
[2021-07-11 18:00] VITALS: BMI 32.5
[2021-10-29] VITALS (19 sets, daily range): BP systolic 136–172; BP diastolic 67–85; PULSE 62–81; RESP 11–39; TEMP 36.2; O2SAT 95–98; BMI 30.5
--- NOTE | 2021-10-29 13:49 | DI.RAD.S_ITS ---
PROCEDURE: XR CHEST 1V INDICATIONS: chest pain TECHNIQUE: One view of the chest was acquired. COMPARISON: [facility], CR, XR CHEST 1V, 05/06/2018, 18:23. FINDINGS: Surgical changes and devices: Median sternotomy. Lungs and pleura: Lungs are clear. No pleural effusions or pneumothorax. Mediastinum: Mediastinal contours appear normal. Heart size is normal. Bones and chest wall: No suspicious bony lesions. Overlying soft tissues appear unremarkable. IMPRESSION: No acute process. Dictated by: Estrella Vidal M.D. on 10/29/2021 at 14:44 Approved by: Estrella Vidal M.D. on 10/29/2021 at 14:44
[2021-10-29 14:27] LABS: Add Manual Diff / Slide Review NO; Basophils Absolute Auto 100 /uL (0-100); Basophils Percent Auto 1.2 % (0-2); Eosinophils Absolute Auto 100 /uL (0-450); Eosinophils Percent Auto 1.1 % (2-4); Hematocrit 33.4 % (41-53); Hemoglobin 11.4 g/dL (13.5-17.5); Lymphocytes Absolute Auto 1000 /uL (1100-4500); Lymphocytes Percent Auto 14.7 % (25-40); Mean Corpuscular HGB Conc 34.1 % (30-36); Mean Corpuscular Hemoglobin 27.1 PG (26-34); Mean Corpuscular Volume 79.5 fL (80-100); Monocytes Absolute Auto 500 /uL (0-900); Monocytes Percent Auto 7.6 % (3-14); Neutrophils Absolute Auto 5400 /uL (1500-7000); Neutrophils Percent Auto 75.4 % (50-75); Platelet Count 263 X10^3/uL (150-400); White Blood Cell Count 7.1 X10^3/uL (4.5-11.0)
[2021-10-29 14:35] LABS: Alanine Aminotransferase 26 IU/L (<50); Albumin 4.5 g/dL (3.5-5.0); Albumin Globulin Ratio 1.4 (1.0-2.8); Alkaline Phosphatase 130 U/L (38-126); Aspartate Aminotransferase 45 IU/L (17-59); BUN Creatinine Ratio 16.8 (6-22); Bilirubin Total 1.4 mg/dL (0.2-1.3); Blood Urea Nitrogen 23 mg/dL (9-20); Calcium 9.1 mg/dL (8.4-10.2); Carbon Dioxide 29 mmol/L (22-32); Chloride 91 mmol/L (98-107); Creatine Kinase 90 U/L (55-170); Estimated Glomerular Filt Rate 52 mL/min (>60); Globulin 3.3 g/dL (1.7-4.1); Glucose 378 mg/dL (80-110); HEMOLYSIS < 15 (0-50); Lipase 563 U/L (23-300); Magnesium 1.8 mg/dL (1.6-2.3); Sodium 131 mmol/L (137-145); Total Protein 7.8 g/dL (6.3-8.2)
[2021-10-29 14:46] LABS: Troponin I 0.046 ng/mL (0.01-0.034)
[2021-10-29 14:59] LABS: Ketones (Beta-Hydroxybutyrate) 0.46 mmol/L (<0.27)
[2021-10-29 15:26] LABS: COVID19 -Nasal RAPID Negative (Negative)
[2021-10-29 16:14] LABS: HCO3 VBG 30 mmol/L (23-28); Oxygen Saturation VBG 52 % (70-75); PO2 VBG 27 mmHg (35-45); Total CO2 VBG 31 mmol/L (24-29); pH VBG 7.44 (7.33-7.43)
[2021-10-29 17:18] LABS: Bacteria Urine None Seen; Culture Indicated Urine Cult Not Indicated; RBC Urine 0-1/HPF (0-5/HPF); Squamous Epithelial Cell Urine 0-1 /HPF (0-5/HPF); WBC Urine 0-1/HPF (0-5/HPF)
--- NOTE | 2021-10-29 17:35 | ED.GENADULT ---
HPI - General Adult <Guerline Holden DO - Last Filed: 10/31/21 20:52> General Chief complaint: Diabetic Problem Stated complaint: diabetes blood sugar out of wack Time Seen by Provider: 10/29/21 14:36 Source: patient Mode of arrival: Wheelchair Limitations: no limitations History of Present Illness HPI narrative: This is an 81-year-old male with history of diabetes, hypertension dyslipidemia, coronary artery disease with prior CABG in the and cardiac stents 2 years prior, polymyalgia rheumatica presents for persistently elevated glucose over last 24 hours. Patient denies fevers or chills, no headache, no vision changes, patient denies any chest pain or shortness of breath denies any nausea or vomiting. He states he is had a little bit of epigastric discomfort but no pain, no back or lower abdominal pain, had normal bowel movements, no black or bloody stools, no dysuria urgency or frequency although he states he is a little bit urinary retention. Denies any rashes or skin changes. Denies any infections. Patient states that he has not had any recent changes to his medications. A known diabetic he does not typically check his glucose regularly but has been checking every other day most recently. He is not currently on insulin. He is not currently on prednisone. Related Data Home Medications Medication Instructions Recorded Confirmed aspirin 81 mg tablet,delayed 81 mg PO DAILY 09/09/18 10/30/21 release (Adult Low Dose Aspirin) vitamin B complex (B 1 tab PO DAILY 09/24/19 10/30/21 Complex-Vitamin B12 tablet) acetaminophen 325 mg tablet 650 mg PO BID PRN Pain, Mild 08/17/20 10/30/21 (Tylenol) rosuvastatin 20 mg tablet 20 mg PO DAILY 08/17/20 10/30/21 Brilinta 90 mg PO BID 12/09/20 10/30/21 blood-glucose sensor (Dexcom G6 #3 ea 06/26/21 10/30/21 Sensor device) blood-glucose transmitter (Dexcom #1 ea 06/26/21 10/30/21 G6 Transmitter device) pioglitazone 30 mg tablet 30 mg PO DAILY 07/11/21 10/30/21 semaglutide 0.25 mg or 0.5 mg (2 See Rx Instructions .Route .COMPLEX 07/12/21 10/30/21 mg/1.5 mL) subcutaneous pen injector (Ozempic) carvedilol 25 mg tablet 50 mg PO BID blood pressure #60 10/09/21 10/30/21 tabs isosorbide dinitrate 20 mg tablet 20 mg PO TID 10/09/21 10/30/21 Previous Rx's Medication Instructions Recorded sertraline 100 mg tablet 100 mg PO DAILY #90 tabs 11/25/20 famotidine 20 mg tablet 20 mg PO BID #180 tabs 11/28/20 finasteride 5 mg tablet 5 mg PO DAILY #90 tabs 04/14/21 blood-glucose meter #1 ea 08/04/21 hydrochlorothiazide 12.5 mg tablet 12.5 mg PO BID #180 tabs 08/25/21 tamsulosin 0.4 mg capsule (Flomax) 0.4 mg PO BID #180 tabs 10/18/21 glipizide 10 mg tablet, extended 10 mg PO BID #180 tabs 10/30/21 release 24 hr potassium chloride 20 mEq 20 meq PO TID #90 tabs 10/30/21 tablet,extended release blood sugar diagnostic (Blood #100 ea 10/31/21 Glucose Test strips) lancets 33 gauge (BD Ultra Fine #100 ea 10/31/21 Lancets) Allergies Allergy/AdvReac Type Severity Reaction Status Date / Time clavulanic acid Allergy Severe Rash/Hives Verified 10/23/21 11:53 [From Augmentin] - internal reaction clopidogrel [From Plavix] Allergy Severe Hives. Verified 10/23/21 11:53 Penicillins Allergy Intermediate HIVES Verified 10/23/21 11:53 methotrexate AdvReac Severe Blister Verified 10/23/21 11:53 amoxicillin AdvReac Intermediate Hives Verified 10/23/21 11:53 metformin AdvReac Intermediate diarrhea Verified 10/30/21 07:42 [id number] Reductase AdvReac Intermediate fatigue, Verified 10/23/21 11:53 Inhibitor extreme [Svvznwy-Joq-Zjn Reductase Inhibitor] Review of Systems <Guerline Holden DO - Last Filed: 10/31/21 20:52> Review of Systems ROS Unobtainable: All systems reviewed & are unremarkable except as noted in HPI and below Patient History <Guerline Holden DO - Last Filed: 10/31/21 20:52> Medical History Benign prostatic hyperplasia with urinary obstruction (03/25/15) BPH w urinary obs/LUTS Chronic back pain (1989) Coronary artery disease involving [place] coronary artery of [place] heart without angina pectoris (1995) Depression Diabetes Essential hypertension Family history of prostate cancer Femur fracture (1965) Fracture (1951) Gilbert's syndrome Hayfever (1999) Hepatitis A (1963) HLD (hyperlipidemia) Incomplete bladder emptying Melanoma (1987) Mild claudication Mixed hyperlipidemia Peripheral vascular disease (2009) Polymyalgia rheumatica (08/30/15) Primary osteoarthritis of both hips (08/30/15) Recurrent falls Shoulder pain (2011) Spinal stenosis Tinnitus Type 2 diabetes mellitus without complication (06/20/15) Urge urinary incontinence Surgical History History of appendectomy History of coronary artery stent placement History of orthopedic surgery (1965) Status post appendectomy (1956) Status post coronary artery bypass graft (1995) Family History Father Colon cancer Prostate enlargement Bladder cancer History of hip surgery Pneumonia History of prostate surgery Mother Diabetes mellitus Heart disease Hypertension High cholesterol Osteoporosis History of cataract surgery H/O heart bypass surgery Arthritis Grandfather Arthritis Prostate cancer Colon cancer Deaf Legally blind Grandmother Diabetes mellitus Hypertension Angina pectoris Heart disease Osteoporosis Social History marital status: number of children: 0 household members: spouse lives independently: Yes caregiver/support person: No housing: house pets and animals: Yes education level: other occupational status: other 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 HEENT: Head normocephalic, atraumatic, EOMI, pupils reactive, face symmetric, moist mucous membranes NECK: Supple, full range of motion CARDIOVASCULAR: Regular rate and rhythm without murmurs, rubs or gallops. RESPIRATORY: Breath sounds equal bilaterally, no wheezes rales or rhonchi. ABDOMEN: Soft, nontender. Normoactive bowel sounds all 4 quadrants. No guarding or rebound, rigidity, no mass. Nondistended. : No CVA tenderness EXTREMITIES: Normal range of motion, no clubbing or edema. Neurovascularly intact NEUROLOGICAL: Cranial nerves II through XII grossly intact. Moving all extremities SKIN: Warm, dry, no petechiae, no rashes or lesions. Initial Vital Signs Initial Vital Signs: Vital Signs Temperature 97.2 F L 10/29/21 13:42 Pulse Rate 81 10/29/21 13:42 Respiratory Rate 18 10/29/21 13:42 Blood Pressure 136/77 10/29/21 13:42 Pulse Oximetry 97 10/29/21 13:42 Oxygen Delivery Method 10/29/21 13:42 <Edwardo Coello, DO - Last Filed: 10/31/21 14:58> Initial Vital Signs Initial Vital Signs: Vital Signs Temperature 97.2 F L 10/29/21 13:42 Pulse Rate 81 10/29/21 13:42 Respiratory Rate 18 10/29/21 13:42 Blood Pressure 136/77 10/29/21 13:42 Pulse Oximetry 97 10/29/21 13:42 Oxygen Delivery Method 10/29/21 13:42 Course <Guerline Holden, DO - Last Filed: 10/31/21 20:52> Orders Ordered: Discontinued Medications Acetaminophen (Acetaminophen 325 Mg Tablet) 650 mg PO BID PRN PRN Reason: Pain, Mild Aspirin (Aspirin Ec 81 Mg Tablet) 81 mg PO DAILY [facility] Last Admin: 10/30/21 08:33 Dose: 81 mg Documented By: MS Atorvastatin Calcium (Atorvastatin 20 Mg Tablet) 40 mg PO BEDTIME [facility] Carvedilol (Carvedilol 12.5 Mg Tablet) 50 mg PO BID [facility] Last Admin: 10/30/21 08:34 Dose: 50 mg Documented By: Dextrose (Dextrose 50 % In Water 25 Gm/50 Ml Syringe) 25 gm IV PRN PRN PRN Reason: Hypoglycemia Enoxaparin Sodium (Enoxaparin 40 Mg/0.4 Ml Syringe) 40 mg SUBCUT DAILY [facility] Last Admin: 10/30/21 08:32 Dose: 40 mg Documented By: MS Famotidine (Famotidine 20 Mg Tablet) 20 mg PO BID [facility] Last Admin: 10/30/21 08:33 Dose: 20 mg Documented By: MS Finasteride (Finasteride 5 Mg Tablet) 5 mg PO DAILY [facility] Last Admin: 10/30/21 08:33 Dose: 5 mg Documented By: MS Glipizide (Glipizide Xl 2.5 Mg Tab) 10 mg PO DAILY@0800 [facility] Last Admin: 10/30/21 08:46 Dose: 10 mg Documented By: MS Hydrochlorothiazide (Hydrochlorothiazide 25 Mg Tablet) 12.5 mg PO BID [facility] Last Admin: 10/30/21 08:33 Dose: 12.5 mg Documented By: MS Sodium Chloride (Normal Saline 0.9%) 1,000 mls @ 1,000 mls/hr IV BOLUS ONE Stop: 10/29/21 18:47 Last Infusion: 10/29/21 20:29 Dose: 0 mls/hr Documented By: Admin: 10/29/21 17:53 Dose: 1,000 mls/hr Documented By: RL Sodium Chloride (Normal Saline 0.9%) 1,000 mls @ 1,000 mls/hr IV BOLUS ONE Stop: 10/29/21 20:04 Last Infusion: 10/29/21 21:43 Dose: 0 mls/hr Documented By: Admin: 10/29/21 20:29 Dose: 1,000 mls/hr Documented By: RL POTASSIUM CHLORIDE IN WATER (Potassium Cl 10 Meq/100 Ml Kayley) 10 meq in 100 mls @ 100 mls/hr IV Q1H MARY Stop: 10/30/21 02:29 Last Admin: 10/30/21 01:47 Dose: 100 mls/hr Documented By: Infusion: 10/30/21 01:43 Dose: 100 mls/hr Documented By: Admin: 10/30/21 00:43 Dose: 100 mls/hr Documented By: Infusion: 10/30/21 00:40 Dose: 100 mls/hr Documented By: Admin: 10/29/21 23:40 Dose: 100 mls/hr Documented By: Infusion: 10/29/21 23:37 Dose: 100 mls/hr Documented By: Admin: 10/29/21 22:37 Dose: 100 mls/hr Documented By: EB Insulin Human Lispro (Insulin Lispro 100 Unit/Ml 3ml Vial) 0 unit SUBCUT ACHS [facility]; Protocol Last Admin: 10/30/21 12:23 Dose: 3 unit Documented By: Co-signed By: ROXANA Admin: 10/30/21 08:38 Dose: 3 unit Documented By: MS Co-signed By: ROXANA Isosorbide Dinitrate (Isosorbide Dinitrate 10 Mg Tablet) 20 mg PO TID [facility] Last Admin: 10/30/21 08:36 Dose: 20 mg Documented By: Non-Formulary Medication (Brilinta) 90 mg PO BID [facility] Last Admin: 10/30/21 08:40 Dose: Not Given Documented By: Non-Formulary Medication (Hydrochlorothiazide) 12.5 mg PO BID [facility] Non-Formulary Medication (Carvedilol) 50 mg PO BID [facility] Non-Formulary Medication (Isosorbide Dinitrate) 20 mg PO TID [facility] Pioglitazone HCl (Pioglitazone 15 Mg Tablet) 30 mg PO DAILY [facility] Last Admin: 10/30/21 08:48 Dose: 30 mg Documented By: Potassium Chloride (Potassium Chloride 20 Meq/15 Ml Udc) 40 meq PO NOW ONE Stop: 10/29/21 22:28 Last Admin: 10/29/21 22:34 Dose: 40 meq Documented By: ANGIE Potassium Chloride (Potassium Chloride 20 Meq Tab) 40 meq PO Q6H [facility] Stop: 10/30/21 18:01 Last Admin: 10/30/21 12:23 Dose: 40 meq Documented By: Sertraline HCl (Sertraline 50 Mg Tablet) 100 mg PO DAILY [facility] Last Admin: 10/30/21 08:34 Dose: 100 mg Documented By: MS Tamsulosin HCl (Tamsulosin 0.4 Mg Capsule) 0.4 mg PO BID [facility] Last Admin: 10/30/21 08:36 Dose: 0.4 mg Documented By: MS Vital Signs Vital signs: Vital Signs - 8 hr 10/29/21 22:43 10/29/21 22:43 10/29/21 23:00 Pulse Rate 74 67 Respiratory Rate 21 Blood Pressure 156/67 H Pulse Oximetry 95 96 10/29/21 23:30 Pulse Rate 69 Respiratory Rate Blood Pressure Pulse Oximetry 97 <Edwardo [place], DO - Last Filed: 10/31/21 14:58> Orders Ordered: Discontinued Medications Acetaminophen (Acetaminophen 325 Mg Tablet) 650 mg PO BID PRN PRN Reason: Pain, Mild Aspirin (Aspirin Ec 81 Mg Tablet) 81 mg PO DAILY [facility] Last Admin: 10/30/21 08:33 Dose: 81 mg Documented By: MS Atorvastatin Calcium (Atorvastatin 20 Mg Tablet) 40 mg PO BEDTIME [facility] Carvedilol (Carvedilol 12.5 Mg Tablet) 50 mg PO BID [facility] Last Admin: 10/30/21 08:34 Dose: 50 mg Documented By: MS Dextrose (Dextrose 50 % In Water 25 Gm/50 Ml Syringe) 25 gm IV PRN PRN PRN Reason: Hypoglycemia Enoxaparin Sodium (Enoxaparin 40 Mg/0.4 Ml Syringe) 40 mg SUBCUT DAILY [facility] Last Admin: 10/30/21 08:32 Dose: 40 mg Documented By: MS Famotidine (Famotidine 20 Mg Tablet) 20 mg PO BID [facility] Last Admin: 10/30/21 08:33 Dose: 20 mg Documented By: MS Finasteride (Finasteride 5 Mg Tablet) 5 mg PO DAILY [facility] Last Admin: 10/30/21 08:33 Dose: 5 mg Documented By: MS Glipizide (Glipizide Xl 2.5 Mg Tab) 10 mg PO DAILY@0800 [facility] Last Admin: 10/30/21 08:46 Dose: 10 mg Documented By: MS Hydrochlorothiazide (Hydrochlorothiazide 25 Mg Tablet) 12.5 mg PO BID [facility] Last Admin: 10/30/21 08:33 Dose: 12.5 mg Documented By: MS Sodium Chloride (Normal Saline 0.9%) 1,000 mls @ 1,000 mls/hr IV BOLUS ONE Stop: 10/29/21 18:47 Last Infusion: 10/29/21 20:29 Dose: 0 mls/hr Documented By: Admin: 10/29/21 17:53 Dose: 1,000 mls/hr Documented By: DARSHANA Sodium Chloride (Normal Saline 0.9%) 1,000 mls @ 1,000 mls/hr IV BOLUS ONE Stop: 10/29/21 20:04 Last Infusion: 10/29/21 21:43 Dose: 0 mls/hr Documented By: Admin: 10/29/21 20:29 Dose: 1,000 mls/hr Documented By: DARSHANA POTASSIUM CHLORIDE IN WATER (Potassium Cl 10 Meq/100 Ml Kayley) 10 meq in 100 mls @ 100 mls/hr IV Q1H MARY Stop: 10/30/21 02:29 Last Admin: 10/30/21 01:47 Dose: 100 mls/hr Documented By: Infusion: 10/30/21 01:43 Dose: 100 mls/hr Documented By: Admin: 10/30/21 00:43 Dose: 100 mls/hr Documented By: Infusion: 10/30/21 00:40 Dose: 100 mls/hr Documented By: Admin: 10/29/21 23:40 Dose: 100 mls/hr Documented By: Infusion: 10/29/21 23:37 Dose: 100 mls/hr Documented By: Admin: 10/29/21 22:37 Dose: 100 mls/hr Documented By: ANGIE Insulin Human Lispro (Insulin Lispro 100 Unit/Ml 3ml Vial) 0 unit SUBCUT ACHS [facility]; Protocol Last Admin: 10/30/21 12:23 Dose: 3 unit Documented By: Co-signed By: ROXANA Admin: 10/30/21 08:38 Dose: 3 unit Documented By: Co-signed By: ROXANA Isosorbide Dinitrate (Isosorbide Dinitrate 10 Mg Tablet) 20 mg PO TID [facility] Last Admin: 10/30/21 08:36 Dose: 20 mg Documented By: Non-Formulary Medication (Brilinta) 90 mg PO BID [facility] Last Admin: 10/30/21 08:40 Dose: Not Given Documented By: Non-Formulary Medication (Hydrochlorothiazide) 12.5 mg PO BID [facility] Non-Formulary Medication (Carvedilol) 50 mg PO BID [facility] Non-Formulary Medication (Isosorbide Dinitrate) 20 mg PO TID [facility] Pioglitazone HCl (Pioglitazone 15 Mg Tablet) 30 mg PO DAILY [facility] Last Admin: 10/30/21 08:48 Dose: 30 mg Documented By: Potassium Chloride (Potassium Chloride 20 Meq/15 Ml Udc) 40 meq PO NOW ONE Stop: 10/29/21 22:28 Last Admin: 10/29/21 22:34 Dose: 40 meq Documented By: ANGIE Potassium Chloride (Potassium Chloride 20 Meq Tab) 40 meq PO Q6H [facility] Stop: 10/30/21 18:01 Last Admin: 10/30/21 12:23 Dose: 40 meq Documented By: MS Sertraline HCl (Sertraline 50 Mg Tablet) 100 mg PO DAILY [facility] Last Admin: 10/30/21 08:34 Dose: 100 mg Documented By: MS Tamsulosin HCl (Tamsulosin 0.4 Mg Capsule) 0.4 mg PO BID [facility] Last Admin: 10/30/21 08:36 Dose: 0.4 mg Documented By: Vital Signs Vital signs: Vital Signs - 8 hr 10/29/21 22:43 10/29/21 22:43 10/29/21 23:00 Pulse Rate 74 67 Respiratory Rate 21 Blood Pressure 156/67 H Pulse Oximetry 95 96 10/29/21 23:30 Pulse Rate 69 Respiratory Rate Blood Pressure Pulse Oximetry 97 Medical Decision Making <Guerline Holden DO - Last Filed: 10/31/21 20:52> Lab Data Result diagrams: 10/29/21 14:00 10/30/21 10:43 Labs: Lab Results 10/29/21 10/29/21 10/29/21 Range/Units 13:50 14:00 14:00 WBC 7.1 (4.5-11.0) X10^3/uL RBC 4.20 L (4.5-5.9) X10^6/uL Hgb 11.4 L (13.5-17.5) g/dL Hct 33.4 L (41-53) % MCV 79.5 L (80-100) fL MCH 27.1 (26-34) PG MCHC 34.1 (30-36) % RDW 18.0 H (11.6-14.8) % Plt Count 263 (150-400) X10^3/uL Neut % (Auto) 75.4 H (50-75) % Lymph % (Auto) 14.7 L (25-40) % [place] % (Auto) 7.6 (3-14) % Eos % (Auto) 1.1 L (2-4) % Baso % (Auto) 1.2 (0-2) % Neut # (Auto) 5400 (7559-1136) /uL Lymph # (Auto) 1000 L (6626-8367) /uL [place] # (Auto) 500 (0-900) /uL Eos # (Auto) 100 (0-450) /uL Baso # (Auto) 100 (0-100) /uL VBG pH (7.33-7.43) VBG pCO2 (45-50) mmHg VBG pO2 (35-45) mmHg VBG HCO3 (23-28) mmol/L VBG Total CO2 (24-29) mmol/L VBG O2 Saturation (70-75) % VBG Base Excess (0-4) mmol/L Sodium 131 L (137-145) mmol/L Potassium 3.0 L (3.4-5.1) mmol/L Chloride 91 L (98-107) mmol/L Carbon Dioxide 29 (22-32) mmol/L BUN 23 H (9-20) mg/dL Creatinine 1.37 H (0.66-1.25) mg/dL Estimated GFR 52 L (>60) mL/min BUN/Creatinine Ratio 16.8 (6-22) Glucose 378 H (80-110) mg/dL Calcium 9.1 (8.4-10.2) mg/dL Magnesium 1.8 (1.6-2.3) mg/dL Total Bilirubin 1.4 H (0.2-1.3) mg/dL AST 45 (17-59) IU/L ALT 26 (<50) IU/L Alkaline Phosphatase 130 H (38-126) U/L Total Creatine Kinase 90 (55-170) U/L CK-MB (CK-2) TNP CK-MB (CK-2) Rel Index TNP Troponin I 0.046 H (0.01-0.034) ng/mL Total Protein 7.8 (6.3-8.2) g/dL Albumin 4.5 (3.5-5.0) g/dL Globulin 3.3 (1.7-4.1) g/dL Albumin/Globulin Ratio 1.4 (1.0-2.8) Lipase 563 H (23-300) U/L Urine RBC (0-5/HPF) Urine WBC (0-5/HPF) Ur Squamous Epith Cells (0-5/HPF) Urine Bacteria (None) Ur Culture Indicated? Ketones (<0.27) mmol/L SARS-CoV-2 (PCR) Negative (Negative) 10/29/21 10/29/21 10/29/21 Range/Units 14:15 16:04 16:55 WBC (4.5-11.0) X10^3/uL RBC (4.5-5.9) X10^6/uL Hgb (13.5-17.5) g/dL Hct (41-53) % MCV (80-100) fL MCH (26-34) PG MCHC (30-36) % RDW (11.6-14.8) % Plt Count (150-400) X10^3/uL Neut % (Auto) (50-75) % Lymph % (Auto) (25-40) % [place] % (Auto) (3-14) % Eos % (Auto) (2-4) % Baso % (Auto) (0-2) % Neut # (Auto) (8517-9579) /uL Lymph # (Auto) (8609-4947) /uL [place] # (Auto) (0-900) /uL Eos # (Auto) (0-450) /uL Baso # (Auto) (0-100) /uL VBG pH 7.44 H (7.33-7.43) VBG pCO2 43.0 L (45-50) mmHg VBG pO2 27 L (35-45) mmHg VBG HCO3 30 H (23-28) mmol/L VBG Total CO2 31 H (24-29) mmol/L VBG O2 Saturation 52 L (70-75) % VBG Base Excess 6.0 H (0-4) mmol/L Sodium (137-145) mmol/L Potassium (3.4-5.1) mmol/L Chloride (98-107) mmol/L Carbon Dioxide (22-32) mmol/L BUN (9-20) mg/dL Creatinine (0.66-1.25) mg/dL Estimated GFR (>60) mL/min BUN/Creatinine Ratio (6-22) Glucose (80-110) mg/dL Calcium (8.4-10.2) mg/dL Magnesium (1.6-2.3) mg/dL Total Bilirubin (0.2-1.3) mg/dL AST (17-59) IU/L ALT (<50) IU/L Alkaline Phosphatase (38-126) U/L Total Creatine Kinase (55-170) U/L CK-MB (CK-2) CK-MB (CK-2) Rel Index Troponin I (0.01-0.034) ng/mL Total Protein (6.3-8.2) g/dL Albumin (3.5-5.0) g/dL Globulin (1.7-4.1) g/dL Albumin/Globulin Ratio (1.0-2.8) Lipase (23-300) U/L Urine RBC 0-1/hpf (0-5/HPF) Urine WBC 0-1/hpf (0-5/HPF) Ur Squamous Epith Cells 0-1 /hpf (0-5/HPF) Urine Bacteria None seen (None) Ur Culture Indicated? Cult not indicated Ketones 0.46 H (<0.27) mmol/L SARS-CoV-2 (PCR) (Negative) 10/29/21 10/29/21 Range/Units 18:16 22:00 WBC (4.5-11.0) X10^3/uL RBC (4.5-5.9) X10^6/uL Hgb (13.5-17.5) g/dL Hct (41-53) % MCV (80-100) fL MCH (26-34) PG MCHC (30-36) % RDW (11.6-14.8) % Plt Count (150-400) X10^3/uL Neut % (Auto) (50-75) % Lymph % (Auto) (25-40) % [place] % (Auto) (3-14) % Eos % (Auto) (2-4) % Baso % (Auto) (0-2) % Neut # (Auto) (2743-0644) /uL Lymph # (Auto) (5983-6782) /uL [place] # (Auto) (0-900) /uL Eos # (Auto) (0-450) /uL Baso # (Auto) (0-100) /uL VBG pH (7.33-7.43) VBG pCO2 (45-50) mmHg VBG pO2 (35-45) mmHg VBG HCO3 (23-28) mmol/L VBG Total CO2 (24-29) mmol/L VBG O2 Saturation (70-75) % VBG Base Excess (0-4) mmol/L Sodium 135 L (137-145) mmol/L Potassium 2.7 L* (3.4-5.1) mmol/L Chloride 98 (98-107) mmol/L Carbon Dioxide 29 (22-32) mmol/L BUN 20 (9-20) mg/dL Creatinine 1.28 H (0.66-1.25) mg/dL Estimated GFR 57 L (>60) mL/min BUN/Creatinine Ratio 15.6 (6-22) Glucose 235 H D (80-110) mg/dL Calcium 8.1 L (8.4-10.2) mg/dL Magnesium (1.6-2.3) mg/dL Total Bilirubin (0.2-1.3) mg/dL AST (17-59) IU/L ALT (<50) IU/L Alkaline Phosphatase (38-126) U/L Total Creatine Kinase (55-170) U/L CK-MB (CK-2) CK-MB (CK-2) Rel Index Troponin I 0.054 H 0.068 H (0.01-0.034) ng/mL Total Protein (6.3-8.2) g/dL Albumin (3.5-5.0) g/dL Globulin (1.7-4.1) g/dL Albumin/Globulin Ratio (1.0-2.8) Lipase (23-300) U/L Urine RBC (0-5/HPF) Urine WBC (0-5/HPF) Ur Squamous Epith Cells (0-5/HPF) Urine Bacteria (None) Ur Culture Indicated? Ketones (<0.27) mmol/L SARS-CoV-2 (PCR) (Negative) Point of Care Testing Glucose POC 315 Urine Dip Bedside Urine Glucose 1000 mg/dl Bedside Urine Bilirubin - Negative Bedside Urine Ketone - Negative Urine Specific [place] 1.015 Bedside Urine Occult Blood +/- Bedside Urine pH 6.0 Bedside Urine Protein + 30 Bedside Urine Urobilinogen - Negative Bedside Urine Nitrite - Negative Bedside Urine Leukocytes - Negative Esterase Point of care testing: Point of Care Testing Glucose POC 315 Urine Dip Bedside Urine Glucose 1000 mg/dl Bedside Urine Bilirubin - Negative Bedside Urine Ketone - Negative Urine Specific [place] 1.015 Bedside Urine Occult Blood +/- Bedside Urine pH 6.0 Bedside Urine Protein + 30 Bedside Urine Urobilinogen - Negative Bedside Urine Nitrite - Negative Bedside Urine Leukocytes - Negative Esterase Imaging Data Chest x-ray: Radiologist's Impression: [address] [id number] XRay Report Signed Patient: Kris Barbour MR#: [id number] : 1940 Acct:[id number] Age/Sex: 81 / M Date of Service: 10/29/21 Loc: ED Accession Number: [id number] ?? Procedure: XR chest 1V Ordering Provider: Guerline Holden D.O. PROCEDURE:? XR CHEST 1V ? INDICATIONS:? chest pain ? TECHNIQUE:? One view of the chest was acquired.? ? COMPARISON:? [facility], CR, XR CHEST 1V, 05/06/2018, 18:23. ? FINDINGS:? ? Surgical changes and devices:? Median sternotomy. ? Lungs and pleura:? Lungs are clear.? No pleural effusions or pneumothorax.? ? Mediastinum:? Mediastinal contours appear normal.? Heart size is normal.? ? Bones and chest wall:? No suspicious bony lesions.? Overlying soft tissues appear unremarkable.? ? IMPRESSION:? No acute process. ? ? Dictated by: Estrella Vidal M.D. on 10/29/2021 at 14:44 ? ? Approved by: Estrella Vidal M.D. on 10/29/2021 at 14:44 ECG Data Attestation: I personally reviewed and interpreted this ECG as follows: Prior ECG tracings: available for review Interpretation: EKG 1. Sinus rhythm, patient has RSR with deeply inverted T-waves in lateral leads. No acute elevation. Patient also has T-wave changes in leads 1 and 2. Patient has prior from 07/21/2018 which appears similar EKG 2 shows sinus rhythm occasional PVC. Patient has tingling inverted T-waves in lateral leads RSR, as well as changes in 1 to with no change from prior earlier today and change from 07/22/2019 MDM Narrative Medical decision making narrative: This is a 81-year-old male presents with hyperglycemia, patient is not in DKA today he is an anion gap of 11, bicarb is 29, patient does have an elevated glucose in the 370s, sodium is 131 with potassium of 3 0, patient's creatinine is bumped at 1.37 but has been 1.2-1.08 recently. Patient is likely a little bit dehydrated with his BUN. Bilirubin is 1.4 but patient denies any other pain, lipase is 563, LFTs are otherwise normal with a slight elevation in alk-phos. Patient's troponin was indeterminate, he does not any chest pain shortness of breath but does have a cardiac history was repeated is 0.046 and then to 0.054 patient has not been in the indeterminate range in the past he does not have any active symptoms. Patient has T-wave changes but these appear similar to prior EKGs 2019. White count, anemia that appears baseline. Patient was given fluids recheck glucose was in the 300 range. Continues to be asymptomatic. After discussion will repeat a 2 L of fluids, repeat labs troponin is stable and not trending upwards likely discharge home if other changes or found will change direction. Patient was signed out to Dr. Coello who will follow-up labs and for final disposition. <Edwardo Coello, DO - Last Filed: 10/31/21 14:58> Lab Data Labs: Lab Results 10/29/21 10/29/21 10/29/21 Range/Units 13:50 14:00 14:00 WBC 7.1 (4.5-11.0) X10^3/uL RBC 4.20 L (4.5-5.9) X10^6/uL Hgb 11.4 L (13.5-17.5) g/dL Hct 33.4 L (41-53) % MCV 79.5 L (80-100) fL MCH 27.1 (26-34) PG MCHC 34.1 (30-36) % RDW 18.0 H (11.6-14.8) % Plt Count 263 (150-400) X10^3/uL Neut % (Auto) 75.4 H (50-75) % Lymph % (Auto) 14.7 L (25-40) % [place] % (Auto) 7.6 (3-14) % Eos % (Auto) 1.1 L (2-4) % Baso % (Auto) 1.2 (0-2) % Neut # (Auto) 5400 (4557-2481) /uL Lymph # (Auto) 1000 L (2488-3078) /uL [place] # (Auto) 500 (0-900) /uL Eos # (Auto) 100 (0-450) /uL Baso # (Auto) 100 (0-100) /uL VBG pH (7.33-7.43) VBG pCO2 (45-50) mmHg VBG pO2 (35-45) mmHg VBG HCO3 (23-28) mmol/L VBG Total CO2 (24-29) mmol/L VBG O2 Saturation (70-75) % VBG Base Excess (0-4) mmol/L Sodium 131 L (137-145) mmol/L Potassium 3.0 L (3.4-5.1) mmol/L Chloride 91 L (98-107) mmol/L Carbon Dioxide 29 (22-32) mmol/L BUN 23 H (9-20) mg/dL Creatinine 1.37 H (0.66-1.25) mg/dL Estimated GFR 52 L (>60) mL/min BUN/Creatinine Ratio 16.8 (6-22) Glucose 378 H (80-110) mg/dL Calcium 9.1 (8.4-10.2) mg/dL Magnesium 1.8 (1.6-2.3) mg/dL Total Bilirubin 1.4 H (0.2-1.3) mg/dL AST 45 (17-59) IU/L ALT 26 (<50) IU/L Alkaline Phosphatase 130 H (38-126) U/L Total Creatine Kinase 90 (55-170) U/L CK-MB (CK-2) TNP CK-MB (CK-2) Rel Index TNP Troponin I 0.046 H (0.01-0.034) ng/mL Total Protein 7.8 (6.3-8.2) g/dL Albumin 4.5 (3.5-5.0) g/dL Globulin 3.3 (1.7-4.1) g/dL Albumin/Globulin Ratio 1.4 (1.0-2.8) Lipase 563 H (23-300) U/L Urine RBC (0-5/HPF) Urine WBC (0-5/HPF) Ur Squamous Epith Cells (0-5/HPF) Urine Bacteria (None) Ur Culture Indicated? Ketones (<0.27) mmol/L SARS-CoV-2 (PCR) Negative (Negative) 10/29/21 10/29/21 10/29/21 Range/Units 14:15 16:04 16:55 WBC (4.5-11.0) X10^3/uL RBC (4.5-5.9) X10^6/uL Hgb (13.5-17.5) g/dL Hct (41-53) % MCV (80-100) fL MCH (26-34) PG MCHC (30-36) % RDW (11.6-14.8) % Plt Count (150-400) X10^3/uL Neut % (Auto) (50-75) % Lymph % (Auto) (25-40) % [place] % (Auto) (3-14) % Eos % (Auto) (2-4) % Baso % (Auto) (0-2) % Neut # (Auto) (9130-2424) /uL Lymph # (Auto) (7345-7404) /uL [place] # (Auto) (0-900) /uL Eos # (Auto) (0-450) /uL Baso # (Auto) (0-100) /uL VBG pH 7.44 H (7.33-7.43) VBG pCO2 43.0 L (45-50) mmHg VBG pO2 27 L (35-45) mmHg VBG HCO3 30 H (23-28) mmol/L VBG Total CO2 31 H (24-29) mmol/L VBG O2 Saturation 52 L (70-75) % VBG Base Excess 6.0 H (0-4) mmol/L Sodium (137-145) mmol/L Potassium (3.4-5.1) mmol/L Chloride (98-107) mmol/L Carbon Dioxide (22-32) mmol/L BUN (9-20) mg/dL Creatinine (0.66-1.25) mg/dL Estimated GFR (>60) mL/min BUN/Creatinine Ratio (6-22) Glucose (80-110) mg/dL Calcium (8.4-10.2) mg/dL Magnesium (1.6-2.3) mg/dL Total Bilirubin (0.2-1.3) mg/dL AST (17-59) IU/L ALT (<50) IU/L Alkaline Phosphatase (38-126) U/L Total Creatine Kinase (55-170) U/L CK-MB (CK-2) CK-MB (CK-2) Rel Index Troponin I (0.01-0.034) ng/mL Total Protein (6.3-8.2) g/dL Albumin (3.5-5.0) g/dL Globulin (1.7-4.1) g/dL Albumin/Globulin Ratio (1.0-2.8) Lipase (23-300) U/L Urine RBC 0-1/hpf (0-5/HPF) Urine WBC 0-1/hpf (0-5/HPF) Ur Squamous Epith Cells 0-1 /hpf (0-5/HPF) Urine Bacteria None seen (None) Ur Culture Indicated? Cult not indicated Ketones 0.46 H (<0.27) mmol/L SARS-CoV-2 (PCR) (Negative) 10/29/21 10/29/21 Range/Units 18:16 22:00 WBC (4.5-11.0) X10^3/uL RBC (4.5-5.9) X10^6/uL Hgb (13.5-17.5) g/dL Hct (41-53) % MCV (80-100) fL MCH (26-34) PG MCHC (30-36) % RDW (11.6-14.8) % Plt Count (150-400) X10^3/uL Neut % (Auto) (50-75) % Lymph % (Auto) (25-40) % [place] % (Auto) (3-14) % Eos % (Auto) (2-4) % Baso % (Auto) (0-2) % Neut # (Auto) (8365-1583) /uL Lymph # (Auto) (2528-1013) /uL [place] # (Auto) (0-900) /uL Eos # (Auto) (0-450) /uL Baso # (Auto) (0-100) /uL VBG pH (7.33-7.43) VBG pCO2 (45-50) mmHg VBG pO2 (35-45) mmHg VBG HCO3 (23-28) mmol/L VBG Total CO2 (24-29) mmol/L VBG O2 Saturation (70-75) % VBG Base Excess (0-4) mmol/L Sodium 135 L (137-145) mmol/L Potassium 2.7 L* (3.4-5.1) mmol/L Chloride 98 (98-107) mmol/L Carbon Dioxide 29 (22-32) mmol/L BUN 20 (9-20) mg/dL Creatinine 1.28 H (0.66-1.25) mg/dL Estimated GFR 57 L (>60) mL/min BUN/Creatinine Ratio 15.6 (6-22) Glucose 235 H D (80-110) mg/dL Calcium 8.1 L (8.4-10.2) mg/dL Magnesium (1.6-2.3) mg/dL Total Bilirubin (0.2-1.3) mg/dL AST (17-59) IU/L ALT (<50) IU/L Alkaline Phosphatase (38-126) U/L Total Creatine Kinase (55-170) U/L CK-MB (CK-2) CK-MB (CK-2) Rel Index Troponin I 0.054 H 0.068 H (0.01-0.034) ng/mL Total Protein (6.3-8.2) g/dL Albumin (3.5-5.0) g/dL Globulin (1.7-4.1) g/dL Albumin/Globulin Ratio (1.0-2.8) Lipase (23-300) U/L Urine RBC (0-5/HPF) Urine WBC (0-5/HPF) Ur Squamous Epith Cells (0-5/HPF) Urine Bacteria (None) Ur Culture Indicated? Ketones (<0.27) mmol/L SARS-CoV-2 (PCR) (Negative) Point of Care Testing Glucose POC 315 Urine Dip Bedside Urine Glucose 1000 mg/dl Bedside Urine Bilirubin - Negative Bedside Urine Ketone - Negative Urine Specific [place]eds 1.015 Bedside Urine Occult Blood +/- Bedside Urine pH 6.0 Bedside Urine Protein + 30 Bedside Urine Urobilinogen - Negative Bedside Urine Nitrite - Negative Bedside Urine Leukocytes - Negative Esterase Point of care testing: Point of Care Testing Glucose POC 315 Urine Dip Bedside Urine Glucose 1000 mg/dl Bedside Urine Bilirubin - Negative Bedside Urine Ketone - Negative Urine Specific [place] 1.015 Bedside Urine Occult Blood +/- Bedside Urine pH 6.0 Bedside Urine Protein + 30 Bedside Urine Urobilinogen - Negative Bedside Urine Nitrite - Negative Bedside Urine Leukocytes - Negative Esterase MDM Narrative Medical decision making narrative: This is a 81-year-old male presents with hyperglycemia, patient is not in DKA today he is an anion gap of 11, bicarb is 29, patient does have an elevated glucose in the 370s, sodium is 131 with potassium of 3 0, patient's creatinine is bumped at 1.37 but has been 1.2-1.08 recently. Patient is likely a little bit dehydrated with his BUN. Bilirubin is 1.4 but patient denies any other pain, lipase is 563, LFTs are otherwise normal with a slight elevation in alk-phos. Patient's troponin was indeterminate, he does not any chest pain shortness of breath but does have a cardiac history was repeated is 0.046 and then to 0.054 patient has not been in the indeterminate range in the past he does not have any active symptoms. Patient has T-wave changes but these appear similar to prior EKGs 2019. White count, anemia that appears baseline. Patient was given fluids recheck glucose was in the 300 range. Continues to be asymptomatic. After discussion will repeat a 2 L of fluids, repeat labs troponin is stable and not trending upwards likely discharge home if other changes or found will change direction. Patient was signed out to Dr. Coello who will follow-up labs and for final disposition. Discharge Plan Departure Patient Disposition: Admitted as Observation Clinical Impression: Hyperglycemia Admit Date/Time: 10/29/21 23:39 Admit Provider: Matt Medina
[2021-10-29] MEDS: SODIUM CHLORIDE 0.9% 1,000 ML 1000 ML IV ×2 (17:53→20:29)
[2021-10-29 18:55] LABS: Troponin I 0.054 ng/mL (0.01-0.034)
[2021-10-29 22:17] LABS: BUN Creatinine Ratio 15.6 (6-22); Blood Urea Nitrogen 20 mg/dL (9-20); Calcium 8.1 mg/dL (8.4-10.2); Carbon Dioxide 29 mmol/L (22-32); Chloride 98 mmol/L (98-107); Estimated Glomerular Filt Rate 57 mL/min (>60); Glucose 235 mg/dL (80-110); HEMOLYSIS < 15 (0-50); Sodium 135 mmol/L (137-145)
[2021-10-29 22:27] LABS: Potassium 2.7 mmol/L (3.4-5.1)
[2021-10-29 22:29] LABS: Troponin I 0.068 ng/mL (0.01-0.034)
[2021-10-29] MEDS: POTASSIUM CHLORIDE 20 MEQ/15 ML UDC 40 MEQ PO (22:34)
[2021-10-29] MEDS: POTASSIUM CHLORIDE IN WATER 10 MEQ/100 ML PIGGYBACK 100 MEQ IV ×2 (22:37→23:40)
--- NOTE | 2021-10-29 23:42 | DI.ECHO.S_ITS ---
[facility] +---------+ : : [address] : : : : [id number] : : : : Phone: [phone]+ Echocardiogram Report + + :Name: SEAMUS BARRIENTOS Study Date: 10/30/2021 Height: 72 in : :[facility] ReadingLocation: Weight: 225 lb : : Gender: Male BSA: 2.2 m2 : :: 1940 Age: 81 yrs BP: 156/88 mmHg: :Reason For Study: ELEVATED TROPONIN : :Ordering Physician: DORIAN, : :GALE Performed By: Jennifer Rodrigues : :Referring: GALE ALARCON : + + Interpretation Summary 1) Mildly increased left ventricular thickness with normal size with mildly reduced systolic function (EF 45-50%0. 2) Basal to mid septum and basal to mid inferior wall are hypokinetic. 3) Mildly enlarged right ventricle with mildly reduced function. 4) There is mild to moderate aortic stenosis (mean gradient 10mmHg, valve area 1.5cm2, mean gradient 0.38). 5) No prior Echo available for comparison. Procedure: A two-dimensional transthoracic echocardiogram with color flow and Doppler was performed. The study quality was technically difficult. A contrast injection of Definity was performed to improve assessment of LV function. There is no prior echocardiogram noted for this patient. The patient was in sinus bradycardia with heart rates between 55-62 bpm during the exam. Left Ventricle: The left ventricle is normal in size. There is mild concentric left ventricular hypertrophy. The ejection fraction is estimated to be 45-50%. Basal to mid septum and basal to mid inferior wall are hypokinetic. Diastolic function could not be accurately assessed due to contradictory data. Right Ventricle: The right ventricle is mildly dilated. Right ventricular systolic function is mildly reduced. Atria: The left atrial size is normal. Right atrial size is normal. There is no Doppler evidence for an interatrial shunt. Mitral Valve: The mitral valve leaflets appear mildly thickened, but open well. There is trace mitral regurgitation. Aortic Valve: The aortic valve is moderately calcified. There is mild aortic valve sclerosis. There is mild to moderate aortic stenosis. There is trace aortic regurgitation. Tricuspid Valve: The tricuspid valve is not well visualized, but is grossly normal. There is trace tricuspid regurgitation. Pulmonic Valve: The pulmonic valve is not well visualized. There is mild pulmonic regurgitation. Great Vessels: The aortic root is normal size. The dimensions of the ascending aorta are normal. The IVC is of normal diameter and collapses greater than 50% with a sniff. This suggests a low right atrial pressure of 3 mm Hg. Pericardium/ Pleura There is no pericardial effusion. There is no pleural effusion. MMode/2D Measurements & Calculations LVIDd: 5.9 cm LVOT diam: 2.3 cm LVIDs: 4.5 cm Ao root diam: 3.6 cm FS: 23.4 % asc Aorta Diam: 3.4 cm EPSS: 0.87 cm IVSd: 1.0 cm LVPWd: 1.2 cm LV palma. diameter/BSA (cm/m^2): 2.6 LV sys. diameter/BSA (cm/m^2): 2.0 LA A2 area: 20.5 cm2 RA long axis: 5.2 cm LA A4 area: 23.9 cm2 RA area: 18.9 cm2 LA length (vol): 5.6 cm RA vol: 58.0 ml LA vol: 74.5 ml RA : 25.9 ml/m2 LA vol index: 33.3 ml/m2 IVC diam: 1.8 cm RVD1 (basal): 4.5 cm RVD2 (mid): 3.6 cm Doppler Measurements & Calculations Ao V2 max: 202.8 cm/sec LVOT Max Rashawn: 84.5 cm/sec Ao V2 mean: 146.9 cm/sec LV V1 max P.9 mmHg Ao max P.5 mmHg LV V1 VTI: 18.7 cm Ao mean P.5 mmHg JUAN RAMON(I,D): 1.5 cm2 Ao V2 VTI: 49.0 cm JUAN RAMON(V,D): 1.7 cm2 sev ratio: 0.38 JUAN RAMON indexed to BSA (cm^2/m^2): 0.68 MV E max rashawn: 127.4 cm/sec PA V2 max: 111.2 cm/sec MV A max rashawn: 132.7 cm/sec PA V2 mean: 72.2 cm/sec MV E/A: 0.96 PA mean P.5 mmHg Med Peak E' Rashawn: 5.9 cm/sec PA pr(Accel): 27.6 mmHg E/E' med: 21.7 Lat Peak E' Rashawn: 7.3 cm/sec E/E' lat: 17.6 E/e' average: 19.6 MV dec time: 0.23 sec SV(LVOT): 74.8 ml Reading Physician:09:48 AM
[2021-10-30 00:10] VITALS: BP 156/88; PULSE 71; RESP 18; TEMP 36.6; O2SAT 95
[2021-10-30] MEDS: POTASSIUM CHLORIDE IN WATER 10 MEQ/100 ML PIGGYBACK 100 MEQ IV ×2 (00:43→01:47)
[2021-10-30 06:00] VITALS: BP 147/77; PULSE 63; RESP 14; O2SAT 98
--- NOTE | 2021-10-30 07:43 | P.HP_ITS ---
History of Present Illness History of Present Illness Date Patient Seen: 10/30/21 Time Patient Seen: 07:43 Chief complaint: diabetes blood sugar out of wack Narrative: 81-year-old male well known to me admitted via emergency department because of elevated blood sugar and indeterminate troponin Patient presented to the emergency department because of persistently elevated blood sugars. He has been working with endocrinology regarding his blood sugars and over the last month or so has had his glipizide discontinued in favor of Ozempic plus the pioglitizone. He is at his Ozempic dose increased. He also was on prednisone for a reaction due to methotrexate causing severe stomatitis. His methotrexate and prednisone both been discontinued at this point but he is persisted with blood sugars in excess of 300. No other associated symptoms other than perhaps some mild fatigue and urinary frequency ER evaluation was remarkable for potassium of 3.0, glucose of 378, sodium of 131 and carbon dioxide of 29. Renal function was more abnormal than usual for patient at GFR of 52 (although he is ranged from a low of 49 to a high of over 60, in the last 4 months). In addition his troponin was indeterminate and continued to very slowly increase remaining in the indeterminate range however. 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) Depression Diabetes Essential hypertension Family history of prostate cancer Femur fracture (1965) Fracture (1951) Gilbert's syndrome Hayfever (1999) Hepatitis A (1963) HLD (hyperlipidemia) Incomplete bladder emptying Melanoma (1987) Mild claudication Mixed hyperlipidemia Peripheral vascular disease (2009) Polymyalgia rheumatica (08/30/15) Primary osteoarthritis of both hips (08/30/15) Recurrent falls Shoulder pain (2011) Spinal stenosis Tinnitus Type 2 diabetes mellitus without complication (06/20/15) Urge urinary incontinence Surgical History History of appendectomy History of coronary artery stent placement History of orthopedic surgery (1965) Status post appendectomy (1956) Status post coronary artery bypass graft (1995) Family & Social History Family History Father Colon cancer Prostate enlargement Bladder cancer History of hip surgery Pneumonia History of prostate surgery Mother Diabetes mellitus Heart disease Hypertension High cholesterol Osteoporosis History of cataract surgery H/O heart bypass surgery Arthritis Grandfather Arthritis Prostate cancer Colon cancer Deaf Legally blind Grandmother Diabetes mellitus Hypertension Angina pectoris Heart disease Osteoporosis Social History: household members spouse Prior Living Arrangements House lives independently Yes caregiver/support person No Safety & Behavioral: Feels Safe in Current Yes Environment Been Physically Hurt or No Threatened By a Person Tobacco & Substance use: Smoking Status Former smoker alcohol intake current alcohol intake frequency 3 or more drinks per day Substance Use Type does not use Meds Home Medications and Allergies Home Medications Medication Instructions Recorded Confirmed Type aspirin 81 mg tablet,delayed 81 mg PO DAILY 09/09/18 10/30/21 History release (Adult Low Dose Aspirin) vitamin B complex (B 1 tab PO DAILY 09/24/19 10/30/21 History Complex-Vitamin B12 tablet) acetaminophen 325 mg tablet 650 mg PO BID PRN Pain, Mild 08/17/20 10/30/21 History (Tylenol) rosuvastatin 20 mg tablet 20 mg PO DAILY 08/17/20 10/30/21 History sertraline 100 mg tablet 100 mg PO DAILY #90 tabs 11/25/20 10/30/21 Rx famotidine 20 mg tablet 20 mg PO BID #180 tabs 11/28/20 10/30/21 Rx Brilinta 90 mg PO BID 12/09/20 10/30/21 History finasteride 5 mg tablet 5 mg PO DAILY #90 tabs 04/14/21 10/30/21 Rx blood-glucose sensor (Dexcom G6 #3 ea 06/26/21 10/30/21 History Sensor device) blood-glucose transmitter (Dexcom #1 ea 06/26/21 10/30/21 History G6 Transmitter device) pioglitazone 30 mg tablet 30 mg PO DAILY 07/11/21 10/30/21 History semaglutide 0.25 mg or 0.5 mg (2 See Rx Instructions .Route .COMPLEX 07/12/21 History mg/1.5 mL) subcutaneous pen injector ([employer] blood-glucose meter #1 ea 08/04/21 10/30/21 Rx hydrochlorothiazide 12.5 mg tablet 12.5 mg PO BID #180 tabs 08/25/21 10/30/21 Rx carvedilol 25 mg tablet 50 mg PO BID blood pressure #60 10/09/21 10/30/21 History tabs isosorbide dinitrate 20 mg tablet 20 mg PO TID 10/09/21 10/30/21 History tamsulosin 0.4 mg capsule (Flomax) 0.4 mg PO BID #180 tabs 10/18/21 10/30/21 Rx glipizide 10 mg tablet, extended 10 mg PO BID #180 tabs 10/30/21 Rx release 24 hr potassium chloride 20 mEq 20 meq PO TID #90 tabs 10/30/21 10/30/21 Rx tablet,extended release blood sugar diagnostic (Blood #100 ea 10/31/21 Rx Glucose Test strips) lancets 33 gauge (BD Ultra Fine #100 ea 10/31/21 Rx Lancets) Allergies Allergy/AdvReac Type Severity Reaction Status Date / Time clavulanic acid Allergy Severe Rash/Hives Verified 10/23/21 11:53 [From Augmentin] - internal reaction clopidogrel [From Plavix] Allergy Severe Hives. Verified 10/23/21 11:53 Penicillins Allergy Intermediate HIVES Verified 10/23/21 11:53 methotrexate AdvReac Severe Blister Verified 10/23/21 11:53 amoxicillin AdvReac Intermediate Hives Verified 10/23/21 11:53 metformin AdvReac Intermediate diarrhea Verified 10/30/21 07:42 [id number] Reductase AdvReac Intermediate fatigue, Verified 10/23/21 11:53 Inhibitor extreme [[id number] Reductase Inhibitor] Review of Systems Review of Systems ROS: Yes All systems reviewed with the patient and are negative except as otherwise documented Exam Vital Signs (past 8 hours): - 10/30/21 00:10 10/30/21 06:00 Temperature 97.9 F Pulse Rate 71 63 Respiratory Rate 18 14 Blood Pressure 156/88 H 147/77 H Pulse Oximetry 95 98 Oxygen Flow Rate 0 0 Oxygen Delivery Method Room Air Oxygen Flow Rate 0 Narrative Exam Narrative: Elderly male lying in his hospital bed without any obvious distress, echocardiogram was just completed HEENT unremarkable Lungs-clear with good breath sounds Heart-regular rate and rhythm Abdomen-obese, positive bowel tones, nontender nondistended, no detectable organomegaly although obesity does limit exam Extremities-no clubbing or cyanosis. Trace edema pretibial Neuro-alert orient x3 moves all 4 extremities no focal findings Objective ECG Impression: 2 separate tracings unchanged from previous, significant abnormalities exist in QRS conduction and T-waves but again are stable compared to baseline Labs Result Diagrams: 10/29/21 14:00 10/30/21 10:43 Labs: Laboratory Results - last 24 hr 10/29/21 10/29/21 10/29/21 13:50 14:00 14:00 WBC 7.1 RBC 4.20 L Hgb 11.4 L Hct 33.4 L MCV 79.5 L MCH 27.1 MCHC 34.1 RDW 18.0 H Plt Count 263 Neut % (Auto) 75.4 H Lymph % (Auto) 14.7 L [place] % (Auto) 7.6 Eos % (Auto) 1.1 L Baso % (Auto) 1.2 Neut # (Auto) 5400 Lymph # (Auto) 1000 L [place] # (Auto) 500 Eos # (Auto) 100 Baso # (Auto) 100 VBG pH VBG pCO2 VBG pO2 VBG HCO3 VBG Total CO2 VBG O2 Saturation VBG Base Excess Sodium 131 L Potassium 3.0 L Chloride 91 L Carbon Dioxide 29 BUN 23 H Creatinine 1.37 H Estimated GFR 52 L BUN/Creatinine Ratio 16.8 Glucose 378 H Calcium 9.1 Magnesium 1.8 Total Bilirubin 1.4 H AST 45 ALT 26 Alkaline Phosphatase 130 H Total Creatine Kinase 90 CK-MB (CK-2) TNP CK-MB (CK-2) Rel Index TNP Troponin I 0.046 H Total Protein 7.8 Albumin 4.5 Globulin 3.3 Albumin/Globulin Ratio 1.4 Lipase 563 H Urine RBC Urine WBC Ur Squamous Epith Cells Urine Bacteria Ur Culture Indicated? Ketones SARS-CoV-2 (PCR) Negative 10/29/21 10/29/21 10/29/21 14:15 16:04 16:55 WBC RBC Hgb Hct MCV MCH MCHC RDW Plt Count Neut % (Auto) Lymph % (Auto) [place] % (Auto) Eos % (Auto) Baso % (Auto) Neut # (Auto) Lymph # (Auto) [place] # (Auto) Eos # (Auto) Baso # (Auto) VBG pH 7.44 H VBG pCO2 43.0 L VBG pO2 27 L VBG HCO3 30 H VBG Total CO2 31 H VBG O2 Saturation 52 L VBG Base Excess 6.0 H Sodium Potassium Chloride Carbon Dioxide BUN Creatinine Estimated GFR BUN/Creatinine Ratio Glucose Calcium Magnesium Total Bilirubin AST ALT Alkaline Phosphatase Total Creatine Kinase CK-MB (CK-2) CK-MB (CK-2) Rel Index Troponin I Total Protein Albumin Globulin Albumin/Globulin Ratio Lipase Urine RBC 0-1/hpf Urine WBC 0-1/hpf Ur Squamous Epith Cells 0-1 /hpf Urine Bacteria None seen Ur Culture Indicated? Cult not indicated Ketones 0.46 H SARS-CoV-2 (PCR) 10/29/21 10/29/21 18:16 22:00 WBC RBC Hgb Hct MCV MCH MCHC RDW Plt Count Neut % (Auto) Lymph % (Auto) [place] % (Auto) Eos % (Auto) Baso % (Auto) Neut # (Auto) Lymph # (Auto) [place] # (Auto) Eos # (Auto) Baso # (Auto) VBG pH VBG pCO2 VBG pO2 VBG HCO3 VBG Total CO2 VBG O2 Saturation VBG Base Excess Sodium 135 L Potassium 2.7 L* Chloride 98 Carbon Dioxide 29 BUN 20 Creatinine 1.28 H Estimated GFR 57 L BUN/Creatinine Ratio 15.6 Glucose 235 H D Calcium 8.1 L Magnesium Total Bilirubin AST ALT Alkaline Phosphatase Total Creatine Kinase CK-MB (CK-2) CK-MB (CK-2) Rel Index Troponin I 0.054 H 0.068 H Total Protein Albumin Globulin Albumin/Globulin Ratio Lipase Urine RBC Urine WBC Ur Squamous Epith Cells Urine Bacteria Ur Culture Indicated? Ketones SARS-CoV-2 (PCR) Assessment & Plan Assessment & Plan narrative: 1. Hyperglycemia-patient without evidence of DKA or other complications related purely to the hyperglycemia. He is mildly dehydrated probably from urinary frequency. Patient has received some IV fluids in the emergency department. No clear etiology for the hyperglycemia exists at this time except for changes in his medication as done via endocrinology with discontinuation of glipizide etce rosalinda. He also had a significant GI reaction to metformin so that has been discontinued in the last couple months as well. Unclear whether not there is any dietary indiscretion that could be a contributing factor. At this point blood sugars do not show evidence of immediate complication (such as DKA) and patient will be restarted on his glipizide and probably sent home sooner rather than later 2. Indeterminate troponin-patient's numbers increasing slightly. Mild renal dysfunction compared to previous uncertain whether not this is playing a role. Patient without symptoms in ECG changes. Given that he never did peak troponin I am not convinced there is any cardiac issue ongoing in this case at all. Plan to repeat troponin this morning and if not in truly abnormal category discontin ue evaluation of cardiac status. As noted above patient also had echocardiogram performed this morning and will look for results of that study as well. 3. Hypokalemia-patient has received oral replacement will plan to recheck that with above labs this morning as well. Also check magnesium. 4. Chronic anemia-patient chronically anemic now somewhat microcytic. Plan to check iron levels. Anemia will certainly at least in part due to chronic disease. No obvious source of blood loss. Consider outpatient evaluation 5. Patient's other medical issues including his hyperlipidemia hypertension kidney stones, PMR, BPH with lower urinary tract symptoms and possible peripheral vascular disease seems stable. Continue patient's usual medications Assuming patient's repeat troponin at electrolytes are improved as above patient can likely be discharged later today. COVID-19 COVID-19 status: Negative Result date/Date tested (Pos, Neg/Pending): 10/29/21
[2021-10-30] MEDS: ENOXAPARIN 40 MG/0.4 ML SYRINGE SUBCUT (08:32)
[2021-10-30] MEDS: ASPIRIN EC 81 MG TABLET PO (08:33)
[2021-10-30] MEDS: hydroCHLOROthiazide 25 MG TABLET 12.5 MG PO (08:33)
[2021-10-30] MEDS: FINASTERIDE 5 MG TABLET PO (08:33)
[2021-10-30] MEDS: FAMOTIDINE 20 MG TABLET PO (08:33)
[2021-10-30 08:34] VITALS: BP 135/69; PULSE 66
[2021-10-30] MEDS: SERTRALINE 50 MG TABLET 100 MG PO (08:34)
[2021-10-30] MEDS: carvediloL 12.5 MG TABLET 50 MG PO (08:34)
[2021-10-30] MEDS: TAMSULOSIN 0.4 MG CAPSULE PO (08:36)
[2021-10-30] MEDS: ISOSORBIDE DINITRATE 10 MG TABLET 20 MG PO (08:36)
[2021-10-30] MEDS: INSULIN LISPRO 100 UNIT/ML 3ML VIAL SUBCUT ×2 (08:38→12:23)
[2021-10-30] MEDS: PIOGLITAZONE 15 MG TABLET 30 MG PO (08:48)
[2021-10-30 09:19] VITALS: BP 130/71; PULSE 68; RESP 18; TEMP 35.9; O2SAT 93
[2021-10-30 11:22] LABS: BUN Creatinine Ratio 15.4 (6-22); Blood Urea Nitrogen 18 mg/dL (9-20); Calcium 8.6 mg/dL (8.4-10.2); Carbon Dioxide 29 mmol/L (22-32); Chloride 99 mmol/L (98-107); Estimated Glomerular Filt Rate > 60 mL/min (>60); Glucose 234 mg/dL (80-110); HEMOLYSIS < 15 (0-50); Magnesium 1.8 mg/dL (1.6-2.3); Sodium 132 mmol/L (137-145)
[2021-10-30 11:33] LABS: Troponin I 0.061 ng/mL (0.01-0.034)
[2021-10-30 11:55] LABS: HEMOLYSIS < 15 (0-50); Iron 35 ug/dL (49-181)
[2021-10-30 12:05] LABS: Percent Iron Saturation 9 % (20-50); Total Iron Binding Capacity 383 ug/dL (261-462); Transferrin 283 mg/dL (206-381)
[2021-10-30] MEDS: POTASSIUM CHLORIDE 20 MEQ TAB 40 MEQ PO (12:23)
--- NOTE | 2021-10-30 12:33 | CM.DANOTE ---
Patient is an 81 yo male who was admitted on 10/29/21 for Diabetes/blood sugar issues. Pt has [facility] and [facility] for insurance and his PCP is Dr. Matt Medina. EMR was reviewed. 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 SW met bedside with pt and explained role and he confirms he lives in [place] with his and is mostly independent with ADL's at baseline and drives some and uses a cane in the home and for walks due to his chronic blood sugar issues. Pt states he has increased weakness at times due to his blood sugars and denies any hx of HH or SNF but states he is scheduled with [facility] in about a week for steroid injection for his chronic back pain and then outpt PT. Pt states they have no other local family but good close friends and spouse/DPOA is able to assist if needed and plans to provide transport at d/c. Pt is hopeful to d/c home later today if stable and does not anticipate any d/c needs at this time. Plan: SW to follow closely for possible d/c home tonight vs tomorrow pending progress and labs and any further identified discharge planning needs. NASIM Gutierrez Discharge Planning/Care Management CM Discharge Assessment Start: 10/30/21 12:30 Freq: Status: Active Protocol: Document 10/30/21 12:30 BF (Rec: 10/30/21 12:33 BF [id number]) Discharge Planning Assessment Assigned Talent Acquisition Operations Manager NASIM Pulido DPOA/Assigned Designee Name spouse Vicky Contact Information [phone] Advance Directives? Yes Advance Directives on File Yes History Provided By Patient,Significant Other, Medical Record Has Patient been admitted in last 30 No days? Comment last admit in July 2021, d/c to home no needs Prior Living Arrangements House Household Members spouse Type of transporation used prior to Drives own vehicle admit Independent with ADL's Yes Is patient alert and oriented? Yes Needs Assistance With Home Chores / Shopping Caregiver for Another No DME Already Rented / Owned Cane Patient/Family Preference OP PT Therapy Barriers to Discharge No Comment None identified at this time, following closely. Likely home w/spouse and no needs from this ENGINE SPECIALIST Discharge Plan Home Community Services Physical Therapy Transportation Arrangement Spouse Referrals Initiated None needed Additional Comment Pending progress Whiteboard Updated in Patient Room with Yes name and ext. # of Talent Acquisition Operations Manager Review Status In Process Please Provide Date Initial DC 10/30/21 Assessment Was Performed Next Review Type Continued Stay Review
--- NOTE | 2021-10-30 14:15 | PC.NURSE ---
Pt is dressed and ready for discharge home with Spouse. IV has been removed. Went over d/c instructions with Pt and Spouse-discussed d/c meds, time of last dose, reviewed stroke education, encouraged Pt to drink plenty of fluids to prevent constipation or dehydration, and to follow up with Dr. Medina as recommended. Pt has started a new diabetic medication-encouraged Pt to check blood sugars ACHS and document findings to take to his follow up appointment. Pt agreed to do so. Pt out via w/c by RN to POV with Spouse and all belongings.
== END 2021-10-30 14:20 | disposition home or self-care (01) ==
LOC: ED 20:31 → AC 23:58
PROVIDERS: Emergency Medicine; Admitting Provider Internal Medicine; Emergency Provider Emergency Medicine; Family Provider Internal Medicine; PCP Internal Medicine; Visit Provider Internal Medicine
DX: E11.65 Type 2 diabetes mellitus with hyperglycemia (principal); E87.6 Hypokalemia; E78.5 Hyperlipidemia, unspecified; I10 Essential (primary) hypertension; N40.1 Benign prostatic hyperplasia with lower urinary tract symptoms; I73.9 Peripheral vascular disease, unspecified; R35.0 Frequency of micturition; E86.0 Dehydration; Z79.84 Long term (current) use of oral hypoglycemic drugs; Z20.822 Contact with and (suspected) exposure to COVID-19; Z87.891 Personal history of nicotine dependence
CPT/HCPCS: 36415; 71045; 80048; 80053; 81003; 81015; 82009; 82550; 82805; 82962; 83540; 83550; 83690; 83735; 84484; 85025; 87086; 87635; 93005; 93306; 96361; 96365; 96366; 96372; 99235; 99284; C9803; G0378; A9270; J1650; J1815; Q9957

== ENCOUNTER → 2021-11-01 11:21 | Outpatient (CLI) | payer MEDICARE, OTHER, SELFPAY ==
[2021-10-29 23:46] VITALS: BMI 30.5
--- NOTE | 2021-11-01 | DI.MRI.S_ITS ---
PROCEDURE: MR LUMBAR SPINE WO CON INDICATIONS: Spinal stenosis, lumbar region without neurogenic claudicati TECHNIQUE: Noncontrast sagittal T1 spin echo and T2 fast echo, sagittal STIR, and T2 fast spin echo through the lumbar spine. In cases with scoliosis, additional coronal T2 fast spin echo may be performed. COMPARISON: [facility], MR, MR LUMBAR SPINE WO CON, 06/09/2019, 11:36. FINDINGS: Image quality: Excellent. Alignment and Curvature: There is normal bony alignment. Bone Marrow: Marrow is of normal overall signal. No acute vertebral body compression fractures. Spinal Cord: Conus medullaris terminates at the L1 level. Visualized cord demonstrates normal signal and size. Paraspinous Soft Tissues: No paravertebral masses. T12-L1: Bridging anterior osteophytes. No significant disc bulge. The foramina and central canal are patent. L1-L2: No significant disc bulge. The foramina and central canal are patent. L2-L3: No significant disc bulge. The foramina and central canal are patent. L3-L4: Diffuse disc bulge and facet arthrosis causes mild bilateral foraminal stenosis. The central canal is patent. L4-L5: Facet arthrosis, grade 1 anterolisthesis, and facet hypertrophy with a diffuse disc bulge causes mild bilateral foraminal stenosis. Epidural lipomatosis causes severe central canal stenosis. L5-S1: Facet arthrosis and diffuse disc bulge cause mild to moderate left foraminal stenosis. Epidural lipomatosis causing severe central canal stenosis. IMPRESSION: 1. Epidural lipomatosis causes severe central canal stenosis at L4-5 and L5-S1. 2. Multilevel lumbar spondylosis causing foraminal and central canal stenosis as detailed above. Dictated by: Ramses Aburto M.D. on 11/01/2021 at 15:20 Approved by: Ramses Aburto M.D. on 11/01/2021 at 15:28
== END ==
PROVIDERS: Family Provider Internal Medicine; PCP Internal Medicine; Referring Provider Physical Medicine & Rehabilitation Pain Medicine; Visit Provider Physical Medicine & Rehabilitation Pain Medicine
DX: M48.061 Spinal stenosis, lumbar region without neurogenic claudication (principal); E88.2 Lipomatosis, not elsewhere classified
CPT/HCPCS: 72148

== ENCOUNTER → 2022-06-25 14:22 | Outpatient (CLI) | payer MEDICARE, OTHER, SELFPAY ==
[2021-10-29 23:46] VITALS: BMI 30.5
[2022-06-25 15:19] LABS: Alanine Aminotransferase 21 IU/L (<50); Albumin 4.2 g/dL (3.5-5.0); Albumin Globulin Ratio 1.6 (1.0-2.8); Alkaline Phosphatase 100 U/L (38-126); Aspartate Aminotransferase 28 IU/L (17-59); BUN Creatinine Ratio 15.5 (6-22); Blood Urea Nitrogen 16 mg/dL (9-20); Calcium 8.9 mg/dL (8.4-10.2); Carbon Dioxide 30 mmol/L (22-32); Chloride 97 mmol/L (98-107); Estimated Glomerular Filt Rate > 60 mL/min (>60); Globulin 2.7 g/dL (1.7-4.1); Glucose 168 mg/dL (80-110); HEMOLYSIS < 15 (0-50); Potassium 3.7 mmol/L (3.4-5.1); Sodium 135 mmol/L (137-145); Total Protein 6.9 g/dL (6.3-8.2)
[2022-06-25 17:14] LABS: Microalbumi Creatinin Ratio Ur 238.2 ug/mg CR (<30); Microalbumin Urine Random 40.5 mg/dL (0-1.6)
[2022-06-26 08:37] LABS: Labcorp Hemoglobin (Hb) A1c 7.4 % (4.8-5.6)
== END ==
PROVIDERS: Family Provider Internal Medicine; PCP Internal Medicine; Referring Provider Internal Medicine; Visit Provider Internal Medicine
DX: E78.2 Mixed hyperlipidemia (principal); I10 Essential (primary) hypertension; E11.9 Type 2 diabetes mellitus without complications
CPT/HCPCS: 36415; 80053; 82043; 82570; 83036

== ENCOUNTER 2022-07-29 15:48 | Emergency (ER) | payer MEDICARE, OTHER, SELFPAY ==
[2021-10-29 23:46] VITALS: BMI 30.5
[2022-07-29 15:52] VITALS: BP 151/89; PULSE 90; RESP 16; TEMP 36.6; O2SAT 96; BMI 31.4
--- NOTE | 2022-07-29 15:55 | ED_ITS ---
HPI - General Adult General Chief complaint: Fall Stated complaint: Fall and hit head, head lac, no thinners Time Seen by Provider: 07/29/22 15:50 History of Present Illness HPI narrative: 82M former smoker with history of hypertension, hyperlipidemia and diabetes presents with his for evaluation of injury suffered due to an accidental ground level fall just prior to arrival. He was carrying some heavy objects in the street and stumbled, falling 1st slightly onto his side and rolling back and striking his head. He denies any loss of consciousness, nausea or vomiting. He has full recall of the event and denies prodromal symptoms contributing such as dizziness, lightheadedness, chest pain or shortness of breath. He states he was a little dizzy in the aftermath but is feeling better now. He has some mild neck pain if any and denies any numbness, tingling or weakness of his upper extremities. He has a superficial abrasion on his right arm and is otherwise well and free of complaint. Related Data Home Medications Medication Instructions Recorded Confirmed aspirin 81 mg tablet,delayed 81 mg PO DAILY 09/09/18 06/27/22 release (Adult Low Dose Aspirin) vitamin B complex (B 1 tab PO DAILY 09/24/19 06/27/22 Complex-Vitamin B12 tablet) rosuvastatin 20 mg tablet 20 mg PO DAILY 08/17/20 06/27/22 blood-glucose sensor (Dexcom G6 #3 ea 06/26/21 06/27/22 Sensor device) blood-glucose transmitter (Dexcom #1 ea 06/26/21 06/27/22 G6 Transmitter device) pioglitazone 30 mg tablet 30 mg PO DAILY 07/11/21 06/27/22 semaglutide 0.25 mg or 0.5 mg (2 See Rx Instructions .Route .COMPLEX 07/12/21 06/27/22 mg/1.5 mL) subcutaneous pen injector (Ozempic) acetaminophen 500 mg capsule 500 mg PO BID PRN 12/08/21 06/27/22 carvedilol 25 mg tablet 25 mg PO BID blood pressure #60 12/08/21 06/27/22 tabs folic acid 1 mg tablet 1 mg PO DAILY 12/08/21 06/27/22 isosorbide dinitrate 20 mg tablet 20 mg PO BID 12/08/21 06/27/22 metformin 1,000 mg tablet,extended 1,000 mg PO BID 12/08/21 06/27/22 release 24hr sertraline 100 mg tablet 150 mg PO DAILY 06/27/22 06/27/22 Previous Rx's Medication Instructions Recorded blood-glucose meter #1 ea 08/04/21 tamsulosin 0.4 mg capsule (Flomax) 0.4 mg PO BID #180 tabs 10/18/21 glipizide 10 mg tablet, extended 10 mg PO BID #180 tabs 10/30/21 release 24 hr potassium chloride 20 mEq 20 meq PO TID #90 tabs 10/30/21 tablet,extended release blood sugar diagnostic (Blood #100 ea 10/31/21 Glucose Test strips) lancets 33 gauge (BD Ultra Fine #100 ea 10/31/21 Lancets) famotidine 20 mg tablet 20 mg PO BID #180 tabs 02/21/22 hydrochlorothiazide 12.5 mg tablet 12.5 mg PO BID #180 tabs 02/21/22 Disabled Parking #1 ea 03/27/22 vibegron 75 mg tablet (Gemtesa) 75 mg PO DAILY #90 tabs 06/27/22 finasteride 5 mg tablet 5 mg PO DAILY #30 tabs 07/26/22 Allergies Allergy/AdvReac Type Severity Reaction Status Date / Time clavulanic acid Allergy Severe Rash/Hives Verified 06/27/22 11:29 [From Augmentin] - internal reaction clopidogrel [From Plavix] Allergy Severe Hives. Verified 06/27/22 11:29 Penicillins Allergy Intermediate HIVES Verified 06/27/22 11:29 methotrexate AdvReac Severe Blister Verified 06/27/22 11:29 amoxicillin AdvReac Intermediate Hives Verified 06/27/22 11:29 metformin AdvReac Intermediate diarrhea Verified 06/27/22 11:29 [id number] Reductase AdvReac Intermediate fatigue, Verified 06/27/22 11:29 Inhibitor extreme [Ppefzzw-Qve-Xlj Reductase Inhibitor] Review of Systems Review of Systems Narrative: GENERAL: See HPI HEENT: Denies sinus pain, ear pain, sore throat, difficulty swallowing, dizziness. RESPIRATORY: Denies dyspnea, cough, wheezing, hemoptysis, sputum. CARDIOVASCULAR: Denies chest pain, palpitations, orthopnea, edema, GASTROINTESTINAL: Denies nausea, vomiting, abdominal pain, diarrhea, constipation, melena. : Denies dysuria, frequency, incontinence, hematuria, urinary retention. MUSCULOSKELETAL: see HPI SKIN: Denies rash, skin lesions, or other NEUROLOGIC: Denies weakness, headache, numbness, change in speech, confusion, seizures, incoordination. PSYCHIATRIC: No concerning psychosocial issues. 12 point review of systems is negative except for those stated above Patient History Medical History Benign prostatic hyperplasia with urinary obstruction (03/25/15) BPH w urinary obs/LUTS Chronic back pain (1989) Coronary artery disease involving [place] coronary artery of [place] heart without angina pectoris (1995) Depression Diabetes Essential hypertension Family history of prostate cancer Femur fracture (1965) Fracture (1951) Gilbert's syndrome Hayfever (1999) Hepatitis A (1963) HLD (hyperlipidemia) Incomplete bladder emptying Melanoma (1987) Mild claudication Mixed hyperlipidemia Peripheral vascular disease (2009) Polymyalgia rheumatica (08/30/15) Primary osteoarthritis of both hips (08/30/15) Recurrent falls Shoulder pain (2011) Spinal stenosis Tinnitus Type 2 diabetes mellitus without complication (06/05/15) Urge urinary incontinence Surgical History History of appendectomy History of coronary artery stent placement History of orthopedic surgery (1965) Status post appendectomy (1956) Status post coronary artery bypass graft (1995) Family History Father Colon cancer Prostate enlargement Bladder cancer History of hip surgery Pneumonia History of prostate surgery Mother Diabetes mellitus Heart disease Hypertension High cholesterol Osteoporosis History of cataract surgery H/O heart bypass surgery Arthritis Grandfather Arthritis Prostate cancer Colon cancer Deaf Legally blind Grandmother Diabetes mellitus Hypertension Angina pectoris Heart disease Osteoporosis Social History marital status: number of children: 0 household members: spouse lives independently: Yes caregiver/support person: No housing: house pets and animals: Yes education level: other occupational status: other 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 Well-developed patient, in mild distress. GCS 15 HEAD: small abrasion and hematoma on the occiput, no laceration requiring intervention, no evidence of depressed skull fracture EYES: Pupils equal round and reactive. no hyphema Extraocular motions intact. No scleral icterus. No injection or drainage. ENT: Nose without bleeding, purulent drainage. No Nasal septal Throat without erythema, tonsillar hypertrophy or exudate. Airway patent. NECK: Trachea midline. Non tender CARDIOVASCULAR: Regular rate and rhythm without murmurs, gallops, or rubs. RESPIRATORY: Clear to auscultation. Breath sounds equal bilaterally. No wheezes, rales, or rhonchi. GASTROINTESTINAL: Abdomen soft, non-tender, nondistended. EXTREMITIES: No edema or joint tenderness. BACK: Nontender without deformity or crepitance. No flank tenderness. NEURO: AOx3. SKIN: No rash or erythema of visible areas Initial Vital Signs Initial Vital Signs: Vital Signs Temperature 97.9 F 07/29/22 15:52 Pulse Rate 90 07/29/22 15:52 Respiratory Rate 16 07/29/22 15:52 Blood Pressure 151/89 H 07/29/22 15:52 Pulse Oximetry 96 07/29/22 15:52 Oxygen Delivery Method Room Air 07/29/22 15:52 Course Orders Ordered: ED Orders 07/29/22 15:59 CT cervical spine wo con Stat CT head/brain wo con Stat Vital Signs Vital signs: Vital Signs - 8 hr 07/29/22 15:52 Temperature 97.9 F Pulse Rate 90 Respiratory Rate 16 Blood Pressure 151/89 H Pulse Oximetry 96 Oxygen Delivery Method Room Air Medical Decision Making Lab Data Labs: Lab Results 07/29/22 Range/Units 17:35 Urine RBC None seen (0-5/HPF) Urine WBC 0-1/hpf (0-5/HPF) Ur Squamous Epith Cells 0-1 /hpf (0-5/HPF) Urine Bacteria Occasional (0-1) (None) Hyaline Casts 0-1/lpf (None) Urine Dip Bedside Urine Glucose 1000 mg/dl Bedside Urine Bilirubin - Negative Bedside Urine Ketone - Negative Urine Specific Nitro 1.020 Bedside Urine Occult Blood +/- Bedside Urine pH 6.0 Bedside Urine Protein + 30 Bedside Urine Urobilinogen - Negative Bedside Urine Nitrite - Negative Bedside Urine Leukocytes - Negative Esterase Point of care testing: Urine Dip Bedside Urine Glucose 1000 mg/dl Bedside Urine Bilirubin - Negative Bedside Urine Ketone - Negative Urine Specific Nitro 1.020 Bedside Urine Occult Blood +/- Bedside Urine pH 6.0 Bedside Urine Protein + 30 Bedside Urine Urobilinogen - Negative Bedside Urine Nitrite - Negative Bedside Urine Leukocytes - Negative Esterase MDM Narrative Medical decision making narrative: [82] year old patient presents with minor injuries as consequence of ground level fall Multiple etiologies for patient's symptoms considered including, but not limited to: [ contusion versus intracranial hemorrhage versus concussion versus cervical fracture versus other] Prior Charts reviewed in our EMR Primary Historian: patient Imaging reviewed: head CT notes no significant acute finding, cervical CT notes no significant acute findings Patient's symptoms improved over duration of stay with above-stated therapies. Findings and discharge diagnosis discussed with patient/family followed by verbalization of understanding Return precautions discussed with patient/family whom verbalize understanding of diagnosis and plan Discharge Plan Departure Patient Disposition: Home Clinical Impression: Contusion of scalp, Abrasion of forearm, right Instructions: How to Prevent Falls Activity Restrictions/Additional Instructions: *You have been diagnosed with [ fall with minor injuries including scalp contusion. As we discussed your history and physical exam are reassuring and the CT scans of your head and neck are unremarkable and do not require any specific interventions] *What to do: *Please continue to take your regular medications as directed. *Please follow up with your primary care provider in 2-3 days, call for an appointment. Let them know you were seen in the Emergency Department and that we ask that you be seen in follow up. We will electronically transmit a record of today's note if your PCP is in our system *Return to Emergency Department if you should have any new, worsening or concerning symptoms, such as [fever greater than 101 F, shaking chills, worsening pain, persistent vomiting or other bothersome symptoms] Prescriptions: No Action (DME) blood-glucose meter Misc See Rx Instructions .ROUTE .MEDSUPPLY Qty: 1 0RF Rx Instructions: Use to test blood glucose DAILY tamsulosin [Flomax] 0.4 mg capsule 0.4 mg PO BID Qty: 180 3RF (DME) Blood Glucose Test Strip See Rx Instructions .ROUTE .MEDSUPPLY Qty: 100 1RF Rx Instructions: Use to test blood glucose ONCE daily. (DME) lancets [BD Ultra Fine Lancets] 33 gauge misc See Rx Instructions .ROUTE .MEDSUPPLY Qty: 100 1RF Rx Instructions: Use to test blood glucose ONCE daily hydrochlorothiazide 12.5 mg tablet 12.5 mg PO BID Qty: 180 1RF famotidine 20 mg tablet 20 mg PO BID Qty: 180 3RF finasteride 5 mg tablet 5 mg PO DAILY Qty: 30 6RF Rx Instructions: Further refills will be given after next appointment aspirin [Adult Low Dose Aspirin] 81 mg tablet,delayed release (DR/EC) 81 mg PO DAILY carvedilol 25 mg tablet 25 mg PO BID Qty: 60 isosorbide dinitrate 20 mg tablet 20 mg PO BID (DME) Disabled Parking See Rx Instructions .ROUTE .MEDSUPPLY Qty: 1 0RF Rx Instructions: Patient qualifies for disabled parking as per the attached form. (DME) Dexcom G6 Transmitter Device See Rx Instructions .ROUTE .MEDSUPPLY Qty: 1 Patient Comments: FOR USE TO CONTINUOUSLY CHECK BLOOD SUGAR. CHANGE TRANSMITTER EVERY 3 MONTHS. Rx Instructions: As directed (DME) Dexcom G6 Sensor Device See Rx Instructions .ROUTE .MEDSUPPLY Qty: 3 Patient Comments: USE 1 DEVICE EVERY 10 DAYS Rx Instructions: As directed acetaminophen 500 mg capsule 500 mg PO BID PRN folic acid 1 mg tablet 1 mg PO DAILY metformin 1,000 mg tablet extended release 24hr 1,000 mg PO BID rosuvastatin 20 mg Tablet 20 mg PO DAILY potassium chloride 20 mEq tablet extended release 20 meq PO TID Qty: 90 4RF glipizide 10 mg tablet extended release 24hr 10 mg PO BID Qty: 180 3RF pioglitazone 30 mg Tablet 30 mg PO DAILY Ozempic 0.25 mg or 0.5 mg(2 mg/1.5 mL) pen injector See Rx Instructions .ROUTE .COMPLEX Patient Comments: INJECT 0.5MG UNDER THE SKIN ONCE A WEEK Rx Instructions: 0.5 mg subcutaneously vitamin B complex [B Complex-Vitamin B12] Tablet 1 tab PO DAILY sertraline 100 mg tablet 150 mg PO DAILY Gemtesa 75 mg tablet 75 mg PO DAILY Qty: 90 3RF Referrals: Matt Medina MD [Primary Care Provider] - Stand Alone Forms: Patient Portal/API
--- NOTE | 2022-07-29 15:59 | DI.CT.S_ITS ---
PROCEDURE: CT HEAD/BRAIN WO CON INDICATIONS: fall with head injury TECHNIQUE: Noncontrast 4.5 mm thick angled axial sections acquired from the foramen magnum to the vertex, with coronal and sagittal reformats. For radiation dose reduction, the following was used: automated exposure control, adjustment of mA and/or kV according to patient size. COMPARISON: [facility], CT, CT HEAD/BRAIN WO CON, 05/06/2018, 18:23. FINDINGS: Image quality: Excellent. CSF spaces: Basal cisterns are patent. No extra-axial fluid collections. The ventricles are symmetric in size and shape. Brain: No intracranial bleeds or masses. There is cerebral volume loss for age, with resultant ventricular and sulcal prominence. There are periventricular and deep white matter chronic small vessel ischemic changes. There is cerebellar volume loss as well. There is intracranial internal carotid artery atherosclerosis. Heavy vertebral artery atherosclerosis. Skull and face: There is a small soft tissue contusion along the right posterior parietal region. No underlying debris. Calvarium in this area is intact. Sinuses: Visualized sinuses and mastoids are clear. IMPRESSION: 1. No CT evidence of acute intracranial trauma. 2. Small right parietal soft tissue injury without underlying fracture or foreign body. 3. Age-appropriate cerebral cortical volume loss and chronic microvascular ischemic changes. Dictated by: Eunice De La Cruz M.D. on 07/29/2022 at 16:55 Approved by: Eunice De La Cruz M.D. on 07/29/2022 at 16:57
--- NOTE | 2022-07-29 15:59 | DI.CT.S_ITS ---
PROCEDURE: CT CERVICAL SPINE WO CON INDICATIONS: fall with headinjury TECHNIQUE: Noncontrast 3 mm thick sections acquired from the skull base to the T4 level. Sagittal and coronal reformats were then constructed. For radiation dose reduction, the following was used: automated exposure control, adjustment of mA and/or kV according to patient size. COMPARISON: None. FINDINGS: Image quality: Excellent. Bones: No fractures or dislocations. Straightening of the normal cervical lordosis. Degenerative disc height loss and vacuum phenomenon at C5-6 and C6-7. There is trace anterolisthesis and moderate disc osteophyte posteriorly at C3-4. There is mild central canal narrowing. Degenerative changes at C1-2 level. Lateral masses are normally aligned on C2. Multilevel degenerative facet arthropathy. Visualized superior ribs are intact. Soft tissues: Prevertebral soft tissues are normal in thickness. No paravertebral hematomas. No apical pneumothoraces. IMPRESSION: 1. No CT evidence of acute cervical spine injury. 2. Moderate degenerative disc changes as described. 3. Bulging disc osteophyte at C3-4 causes mild central canal narrowing. Dictated by: Eunice De La Cruz M.D. on 07/29/2022 at 16:57 Approved by: Eunice De La Cruz M.D. on 07/29/2022 at 17:01
[2022-07-29 17:59] VITALS: BP 138/70; PULSE 74; O2SAT 96
[2022-07-29 18:00] VITALS: BP 137/74; PULSE 72; O2SAT 96
[2022-07-29 18:32] LABS: RBC Urine None Seen (0-5/HPF); Squamous Epithelial Cell Urine 0-1 /HPF (0-5/HPF); WBC Urine 0-1/HPF (0-5/HPF)
[2022-07-29 18:33] LABS: Bacteria Urine Occasional (0-1); Hyaline Casts Urine 0-1/LPF
== END 2022-07-29 18:14 | disposition home or self-care (01) ==
PROVIDERS: Emergency Provider Emergency Medicine; Family Provider Internal Medicine; PCP Internal Medicine
DX: S00.03XA Contusion of scalp, initial encounter (principal); S50.811A Abrasion of right forearm, initial encounter; W18.30XA Fall on same level, unspecified, initial encounter
CPT/HCPCS: 70450; 72125; 81003; 81015; 87086; 99283

== ENCOUNTER → 2022-09-10 16:19 | Outpatient (CLI) | payer MEDICARE, OTHER, SELFPAY ==
[2022-08-20 11:22] VITALS: BMI 30.5
--- NOTE | 2022-09-10 16:23 | DI.RAD.S_ITS ---
PROCEDURE: XR ACUTE ABDOMEN SERIES INDICATIONS: abd pain/nausea TECHNIQUE: One view chest and two views of the abdomen were acquired. COMPARISON: [facility], , XR ACUTE ABDOMEN SERIES, 07/03/2019, 11:01. FINDINGS: Surgical changes and devices: Sternotomy wires. Prior CABG changes. Chest: Lungs are clear. No pleural effusions. Heart size is at the upper limit of normal Abdomen: Nonspecific overall bowel gas pattern. There is above average fecal loading. A few air-fluid levels are seen in the right lower quadrant, probably representing prominent small bowel loops. Bones: Degenerative changes of the hips and spine. IMPRESSION: Chest: No acute radiographic abnormality. Postsurgical changes. Abdomen: Above average fecal loading. Air-fluid levels with prominent loops of small bowel in the right lower quadrant, probably ileus. Obstruction is a possible but less likely consideration. Dictated by: Inder Walton M.D. on 09/11/2022 at 12:31 Approved by: Inder Walton M.D. on 09/11/2022 at 12:33
[2022-09-10 17:57] LABS: Add Manual Diff / Slide Review NO; Basophils Absolute Auto 100 /uL (0-100); Basophils Percent Auto 1.5 % (0-2); Eosinophils Absolute Auto 300 /uL (0-450); Eosinophils Percent Auto 5.1 % (2-4); Hematocrit 34.5 % (41-53); Hemoglobin 11.8 g/dL (13.5-17.5); Lymphocytes Absolute Auto 1800 /uL (1100-4500); Lymphocytes Percent Auto 25.7 % (25-40); Mean Corpuscular HGB Conc 34.2 % (30-36); Mean Corpuscular Hemoglobin 30.6 PG (26-34); Mean Corpuscular Volume 89.6 fL (80-100); Monocytes Absolute Auto 600 /uL (0-900); Monocytes Percent Auto 9.3 % (3-14); Neutrophils Absolute Auto 4000 /uL (1500-7000); Neutrophils Percent Auto 58.4 % (50-75); Platelet Count 226 X10^3/uL (150-400); Red Blood Cell Count 3.85 X10^6/uL (4.5-5.9); Red Cell Distribution Width 18.4 % (11.6-14.8); White Blood Cell Count 6.9 X10^3/uL (4.5-11.0)
[2022-09-10 18:29] LABS: Alanine Aminotransferase 26 IU/L (<50); Albumin Globulin Ratio 1.2 (1.0-2.8); Alkaline Phosphatase 95 U/L (38-126); Amylase 78 U/L (30-110); Aspartate Aminotransferase 34 IU/L (17-59); Bilirubin Total 0.9 mg/dL (0.2-1.3); Blood Urea Nitrogen 19 mg/dL (9-20); Calcium 8.5 mg/dL (8.4-10.2); Carbon Dioxide 23 mmol/L (22-32); Chloride 101 mmol/L (98-107); Estimated Glomerular Filt Rate > 60 mL/min (>60); Globulin 3.4 g/dL (1.7-4.1); Glucose 185 mg/dL (80-110); HEMOLYSIS 56 (0-50); Lipase 376 U/L (23-300); Potassium 3.5 mmol/L (3.4-5.1); Sodium 135 mmol/L (137-145); Total Protein 7.4 g/dL (6.3-8.2)
[2022-09-10 18:53] LABS: TSH w/ Reflex to FT4 3.15 uIU/mL (0.47-4.68)
== END ==
PROVIDERS: Family Provider Internal Medicine; PCP Internal Medicine; Referring Provider Internal Medicine; Visit Provider Internal Medicine
DX: R11.0 Nausea (principal); R63.4 Abnormal weight loss; R10.9 Unspecified abdominal pain
CPT/HCPCS: 36415; 74022; 80053; 82150; 83690; 84443; 85025

== ENCOUNTER → 2022-11-06 12:54 | Outpatient (CLI) | payer MEDICARE, OTHER, SELFPAY ==
[2022-08-20 11:22] VITALS: BMI 30.5
[2022-11-06 14:43] LABS: Hemoglobin A1C% w Est Avg Glu 9.2 % (4.0-6.0)
[2022-11-06 14:59] LABS: BUN Creatinine Ratio 15.5 (6-22); Blood Urea Nitrogen 17 mg/dL (9-20); Calcium 8.8 mg/dL (8.4-10.2); Carbon Dioxide 25 mmol/L (22-32); Chloride 98 mmol/L (98-107); Estimated Glomerular Filt Rate > 60 mL/min (>60); Glucose 327 mg/dL (80-110); HEMOLYSIS < 15 (0-50); Potassium 3.4 mmol/L (3.4-5.1); Sodium 133 mmol/L (137-145)
== END ==
PROVIDERS: Family Provider Internal Medicine; PCP Internal Medicine; Referring Provider Internal Medicine; Visit Provider Internal Medicine
DX: E11.65 Type 2 diabetes mellitus with hyperglycemia (principal); E78.2 Mixed hyperlipidemia; I10 Essential (primary) hypertension
CPT/HCPCS: 36415; 80048; 83036

== ENCOUNTER → 2022-11-14 11:48 | Outpatient (CLI) | payer MEDICARE, OTHER, SELFPAY ==
[2022-08-20 11:22] VITALS: BMI 30.5
--- NOTE | 2022-11-14 11:49 | DI.MRI.S_ITS ---
PROCEDURE: MR CERVICAL SPINE WO CON INDICATIONS: cervical radiculopathy TECHNIQUE: Noncontrast sagittal T1 spin echo and T2 fast spin echo, sagittal STIR, foraminal oblique sagittal T2 fast spin echo, and axial gradient echo or T2 fast spin echo through the cervical spine. COMPARISON: [facility], MR, MR CERVICAL SPINE WO CON, 02/02/2021, 12:25. FINDINGS: Image quality: Excellent. Alignment and Curvature: There is normal bony alignment. Bone Marrow: Marrow demonstrates normal overall signal. Spinal Cord: Visualized spinal cord has normal size and signal. No cerebellar tonsillar herniation. Paraspinous Soft Tissues: No paravertebral masses. Prevertebral soft tissues are normal in thickness. C2-C3: No significant disc bulge. The foramina and central canal are patent. C3-C4: Diffuse disc bulge and uncovertebral hypertrophy cause moderate bilateral foraminal stenosis. The central canal has mild stenosis. C4-C5: Diffuse disc bulge causes mild bilateral foraminal stenosis. The central canal is patent. C5-C6: Diffuse disc bulge and disc osteophytes worse on the right cause severe right foraminal stenosis and moderate left foraminal stenosis. The central canal has moderate stenosis. C6-C7: Diffuse disc bulge and disc osteophytes cause severe bilateral foraminal stenosis. The central canal has severe stenosis. C7-T1: No significant disc bulge. The foramina and central canal are patent. IMPRESSION: 1. Multilevel degenerative disc disease causing multilevel foraminal and central canal stenosis. 2. Moderate central canal stenosis at C5-6 and severe central canal stenosis at C6-7. Dictated by: Ramses Aburto M.D. on 11/14/2022 at 15:18 Approved by: Ramses Aburto M.D. on 11/14/2022 at 15:33
== END ==
PROVIDERS: Family Provider Internal Medicine; PCP Internal Medicine; Referring Provider Internal Medicine; Visit Provider Internal Medicine
DX: M50.11 Cervical disc disorder with radiculopathy, high cervical region (principal); M48.02 Spinal stenosis, cervical region
CPT/HCPCS: 72141

== ENCOUNTER 2023-01-04 14:26 | Emergency (ER) | payer MEDICARE, OTHER, SELFPAY ==
[2022-08-20 11:22] VITALS: BMI 30.5
[2023-01-04 14:53] VITALS: BP 161/97; PULSE 96; RESP 18; TEMP 36.7; O2SAT 98; BMI 29.8
--- NOTE | 2023-01-04 15:01 | DI.RAD.S_ITS ---
PROCEDURE: XR CHEST 1V INDICATIONS: chest pain TECHNIQUE: One view of the chest was acquired. COMPARISON: [facility], CR, XR CHEST 1V, 10/29/2021, 14:03. FINDINGS: Surgical changes and devices: Patient is status post median sternotomy and CABG. Lungs and pleura: Lungs are clear. No pleural effusions or pneumothorax. Mediastinum: Mediastinal contours appear normal. The cardiac silhouette is markedly enlarged. Bones and chest wall: No suspicious bony lesions. Overlying soft tissues appear unremarkable. IMPRESSION: Marked cardiac silhouette enlargement. Differential considerations include cardiomegaly and pericardial effusion. No pulmonary radiopacities or pleural effusion. Dictated by: Arti Alvarenga M.D. on 01/04/2023 at 16:28 Approved by: Arti Alvarenga M.D. on 01/04/2023 at 16:29
[2023-01-04 15:34] LABS: Add Manual Diff / Slide Review NO; Basophils Absolute Auto 100 /uL (0-100); Basophils Percent Auto 0.6 % (0-2); Eosinophils Absolute Auto 100 /uL (0-450); Hematocrit 39.1 % (41-53); Hemoglobin 12.5 g/dL (13.5-17.5); Lymphocytes Absolute Auto 1700 /uL (1100-4500); Lymphocytes Percent Auto 15.8 % (25-40); Mean Corpuscular Hemoglobin 24.7 PG (26-34); Mean Corpuscular Volume 77.2 fL (80-100); Monocytes Absolute Auto 700 /uL (0-900); Monocytes Percent Auto 6.8 % (3-14); Neutrophils Absolute Auto 8200 /uL (1500-7000); Neutrophils Percent Auto 75.8 % (50-75); Platelet Count 300 X10^3/uL (150-400); Red Blood Cell Count 5.07 X10^6/uL (4.5-5.9); Red Cell Distribution Width 18.4 % (11.6-14.8); White Blood Cell Count 10.8 X10^3/uL (4.5-11.0)
[2023-01-04 15:41] LABS: Alanine Aminotransferase 22 IU/L (<50); Albumin 4.5 g/dL (3.5-5.0); Albumin Globulin Ratio 1.4 (1.0-2.8); Alkaline Phosphatase 121 U/L (38-126); Aspartate Aminotransferase 28 IU/L (17-59); BUN Creatinine Ratio 26.5 (6-22); Blood Urea Nitrogen 26 mg/dL (9-20); Calcium 9.4 mg/dL (8.4-10.2); Carbon Dioxide 24 mmol/L (22-32); Chloride 99 mmol/L (98-107); Creatine Kinase 46 U/L (55-170); Estimated Glomerular Filt Rate > 60 mL/min (>60); Globulin 3.2 g/dL (1.7-4.1); Glucose 210 mg/dL (80-110); HEMOLYSIS < 15 (0-50); Lipase 238 U/L (23-300); Magnesium 1.9 mg/dL (1.6-2.3); Potassium 3.5 mmol/L (3.4-5.1); Sodium 135 mmol/L (137-145); Total Protein 7.7 g/dL (6.3-8.2)
[2023-01-04 15:52] LABS: Troponin I 0.064 ng/mL (0.01-0.034)
--- NOTE | 2023-01-04 16:00 | DI.CT.S_ITS ---
PROCEDURE: CT HEAD/BRAIN WO CON INDICATIONS: FALL TECHNIQUE: Noncontrast 4.5 mm thick angled axial sections acquired from the foramen magnum to the vertex, with coronal and sagittal reformats. For radiation dose reduction, the following was used: automated exposure control, adjustment of mA and/or kV according to patient size. COMPARISON: [facility], CT, CT HEAD/BRAIN WO CON, 07/29/2022, 16:21. FINDINGS: Image quality: Excellent. CSF spaces: Basal cisterns are patent. No extra-axial fluid collections. The ventricles are symmetric in size and shape. Brain: No intracranial bleeds or masses. There is cerebral volume loss for age, with resultant ventricular and sulcal prominence. There are periventricular and deep white matter chronic small vessel ischemic changes. There is intracranial internal carotid artery atherosclerosis. Skull and face: Calvarium and visualized facial bones appear intact, without suspicious lesions. Sinuses: Visualized sinuses and mastoids are clear. IMPRESSION: No acute intracranial process Dictated by: Angel Lira M.D. on 01/04/2023 at 17:11 Approved by: Angel Lira M.D. on 01/04/2023 at 17:12
--- NOTE | 2023-01-04 16:00 | DI.CT.S_ITS ---
PROCEDURE: CT CERVICAL SPINE WO CON INDICATIONS: FALL TECHNIQUE: Noncontrast 3 mm thick sections acquired from the skull base to the T4 level. Sagittal and coronal reformats were then constructed. For radiation dose reduction, the following was used: automated exposure control, adjustment of mA and/or kV according to patient size. COMPARISON: [facility], CT, CT CERVICAL SPINE WO CON, 07/29/2022, 16:21. FINDINGS: Image quality: Excellent. Bones: No cervical fractures or dislocations. A T2 compression fracture which is subtle and mild may potentially be acute or subacute. There is flowing anterior osteophytosis in the upper thoracic spine. Visualized superior ribs are intact. Cervical spondylitic change with multilevel facet arthropathy. Soft tissues: Prevertebral soft tissues are normal in thickness. No paravertebral hematomas. No apical pneumothoraces. IMPRESSION: 1. No acute cervical fracture or dislocation. 2. Age- indeterminate superior endplate compression of T2. Comment: Findings were discussed with Dr. Cruz on 01/04/2023 at 1706 hours Dictated by: Angel Lira M.D. on 01/04/2023 at 17:00 Approved by: Angel Lira M.D. on 01/04/2023 at 17:10
--- NOTE | 2023-01-04 16:20 | PC.NURSE ---
P2 nights ago pt states he think he became dizzy/weak and fell. Found 5 hours later by . C/o shoulder discomfort from being stuck on the floor but denies any other symptoms. Pt ambulating slowly but well with his cane. Pt states that he wasn't going to come in to evaluated but his PCP insisted. Pt
[2023-01-04 16:52] LABS: INR 1.1 (0.9-1.3); Prothrombin Time 12.7 SECONDS (10.1-12.7)
[2023-01-04 16:54] LABS: PTT Partial Thromboplastin Tim 29 SECONDS (26-36)
[2023-01-04 17:15] VITALS: BP 139/78; PULSE 75; RESP 16; O2SAT 94
--- NOTE | 2023-01-04 17:26 | DI.RAD.S_ITS ---
PROCEDURE: XR SHOULDER RT MIN 2V INDICATIONS: fall/pain TECHNIQUE: 3 views of the shoulder were acquired. COMPARISON: [facility], MR, SHOULDER WITHOUT CONTRAST, 08/22/2015, 10:04. [facility], CT, CT HEAD/BRAIN WO CON, 01/04/2023, 16:20. [facility], CT, CT CERVICAL SPINE WO CON, 01/04/2023, 16:20. [facility], CR, XR CHEST 1V, 01/04/2023, 15:54. FINDINGS: Bones: No fractures or dislocations. No suspicious bony lesions. Visualized ribs appear intact. Degenerative changes are seen, which are including involving the acromioclavicular joint. There is lateral downsloping of the acromion. Mild glenohumeral joint space narrowing can be seen. Sternotomy wires are seen. Soft tissues: No suspicious soft tissue calcifications. The visualized lung demonstrates an unremarkable appearance. IMPRESSION: Negative for acute abnormality by plain film. Underlying degenerative changes are seen. If it would be helpful for clinical management decision making, please consider a dedicated, scheduled shoulder MRI for further evaluation (assuming that there is no contraindication). Dictated by: Sameer Urrutia M.D. on 01/04/2023 at 16:50 Approved by: Sameer Urrutia M.D. on 01/04/2023 at 16:51
--- NOTE | 2023-01-04 18:44 | ED.FALL ---
HPI - Fall General Chief Complaint: Weakness Stated Complaint: SENT BY [facility]/FELL T-2/RT SHOULDER INJ Time Seen by Provider: 01/04/23 17:57 Source: patient Mode of arrival: Ambulatory History of Present Illness HPI Narrative: Patient left prior to any sort of provider evaluation. He was called after his departure about IV which he reports he pulled out himself. CT cervical spine does show an age-indeterminate T2 compression fracture. Other imaging does not mention it does not look like it goes down as far as T2. Patient reports he has no pain he will follow-up with his primary provider. Patient was never seen. Related Data Home Medications Medication Instructions Recorded Confirmed aspirin 81 mg tablet,delayed 81 mg PO DAILY 09/09/18 12/27/22 release (Adult Low Dose Aspirin) rosuvastatin 20 mg tablet 20 mg PO DAILY 08/17/20 12/27/22 acetaminophen 500 mg capsule 500 mg PO BID PRN 12/08/21 12/27/22 folic acid 1 mg tablet 2 mg PO DAILY 11/09/22 12/27/22 isosorbide dinitrate 20 mg tablet 20 mg PO BID 11/09/22 12/27/22 sertraline 100 mg tablet 100 mg PO DAILY 11/09/22 12/27/22 sertraline 50 mg tablet 50 mg PO DAILY 11/09/22 12/27/22 tamsulosin 0.4 mg capsule (Flomax) 0.4 mg PO BID 11/09/22 12/27/22 hydrochlorothiazide 12.5 mg capsule 12.5 mg PO BID 12/27/22 12/27/22 Previous Rx's Medication Instructions Recorded blood-glucose meter #1 ea 08/04/21 blood sugar diagnostic (Blood #100 ea 10/31/21 Glucose Test strips) lancets 33 gauge (BD Ultra Fine #100 ea 10/31/21 Lancets) famotidine 20 mg tablet 20 mg PO BID #180 tabs 02/21/22 Disabled Parking #1 ea 03/27/22 vibegron 75 mg tablet (Gemtesa) 75 mg PO DAILY #90 tabs 06/27/22 pantoprazole 40 mg tablet,delayed 40 mg PO BID #180 tabs 08/23/22 release carvedilol 3.125 mg tablet 3.125 mg PO BID #60 tabs 09/10/22 glipizide 10 mg tablet, extended 10 mg PO BID #180 tabs 10/15/22 release 24 hr Allergies Allergy/AdvReac Type Severity Reaction Status Date / Time clavulanic acid Allergy Severe Rash/Hives Verified 01/04/23 14:53 [From Augmentin] - internal reaction clopidogrel [From Plavix] Allergy Severe Hives. Verified 01/04/23 14:53 Penicillins Allergy Intermediate HIVES Verified 01/04/23 14:53 empagliflozin AdvReac Severe stomach Verified 01/04/23 14:53 [From Jardiance] pain methotrexate AdvReac Severe Blister Verified 01/04/23 14:53 amoxicillin AdvReac Intermediate Hives Verified 01/04/23 14:53 metformin AdvReac Intermediate diarrhea Verified 01/04/23 14:53 semaglutide [From Ozempic] AdvReac Intermediate pancreatiti Verified 01/04/23 14:53 s Stsrxwr-[id number] Reductase AdvReac Intermediate fatigue, Verified 01/04/23 14:53 Inhibitor extreme [Agreczm-Duu-Sjb Reductase Inhibitor] Patient History Medical History (Updated 12/27/22 @ 10:26 by Matt Medina MD) Mild claudication Recurrent falls Spinal stenosis Tinnitus Family history of prostate cancer Diabetes HLD (hyperlipidemia) Depression Urge urinary incontinence Incomplete bladder emptying Hayfever (1999) Shoulder pain (2011) Fracture (1951) Chronic back pain (1989) Hepatitis A (1963) Melanoma (1987) Gilbert's syndrome Femur fracture (1965) Primary osteoarthritis of both hips (08/30/15) Polymyalgia rheumatica (08/30/15) Type 2 diabetes mellitus without complication (06/05/15) Benign prostatic hyperplasia with urinary obstruction (03/25/15) Peripheral vascular disease (2009) 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) Essential hypertension Mixed hyperlipidemia Surgical History History of coronary artery stent placement History of appendectomy History of orthopedic surgery (1965) Status post appendectomy (1956) Status post coronary artery bypass graft (1995) Family History Father Colon cancer Prostate enlargement Bladder cancer History of hip surgery Pneumonia History of prostate surgery Mother Diabetes mellitus Heart disease Hypertension High cholesterol Osteoporosis History of cataract surgery H/O heart bypass surgery Arthritis Grandfather Arthritis Prostate cancer Colon cancer Deaf Legally blind Grandmother Diabetes mellitus Hypertension Angina pectoris Heart disease Osteoporosis Social History marital status: number of children: 0 household members: spouse lives independently: Yes caregiver/support person: No housing: house pets and animals: Yes education level: other occupational status: other 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: None travel history: other leisure activities: other Smoking Status: Former smoker Tobacco: How many years used: 20 Smokeless tobacco user: other quit status: quit date established second hand exposure: No alcohol intake: current substance use type: does not use and marijuana Smoking Status: Former smoker alcohol intake frequency: 3 or more drinks per day Substance Use Type: does not use Exam Initial Vital Signs Initial Vital Signs: Vital Signs Temperature 98.0 F 01/04/23 14:53 Pulse Rate 96 H 01/04/23 14:53 Respiratory Rate 18 01/04/23 14:53 Blood Pressure 161/97 H 01/04/23 14:53 Pulse Oximetry 98 01/04/23 14:53 Oxygen Delivery Method Room Air 01/04/23 14:53 Course Orders Ordered: ED Orders 01/04/23 15:01 XR chest 1V Stat 01/04/23 15:10 Complete Blood Count AUTO DIFF Stat Comprehensive Metabolic Panel Stat Lipase Stat Magnesium Stat Troponin & CK Cardiac Panel Stat 01/04/23 15:11 EKG-12 Lead Stat 01/04/23 16:00 CT cervical spine wo con Stat CT head/brain wo con Stat 01/04/23 16:42 PTT Partial Thromboplastin Matteo Stat Prothrombin Time INR Stat 01/04/23 17:26 XR shoulder RT min 2V Stat Discontinued Medications Aspirin (Aspirin 81 Mg Chew Tab) 324 mg PO NOW ONE Stop: 01/04/23 15:01 Last Admin: 01/04/23 15:49 Dose: Not Given Documented By: AMV Vital Signs Vital signs: Vital Signs - 8 hr 01/04/23 14:53 Temperature 98.0 F Pulse Rate 96 H Respiratory Rate 18 Blood Pressure 161/97 H Pulse Oximetry 98 Oxygen Delivery Method Room Air MDM - Fall Lab Data 01/04/23 15:10 01/04/23 15:10 Labs: Lab Results 11/03/23 11/03/23 Range/Units 15:10 16:42 WBC 10.8 (4.5-11.0) X10^3/uL RBC 5.07 (4.5-5.9) X10^6/uL Hgb 12.5 L (13.5-17.5) g/dL Hct 39.1 L (41-53) % MCV 77.2 L (80-100) fL MCH 24.7 L (26-34) PG MCHC 32.0 (30-36) % RDW 18.4 H (11.6-14.8) % Plt Count 300 (150-400) X10^3/uL Neut % (Auto) 75.8 H (50-75) % Lymph % (Auto) 15.8 L (25-40) % [place] % (Auto) 6.8 (3-14) % Eos % (Auto) 1.0 L (2-4) % Baso % (Auto) 0.6 (0-2) % Neut # (Auto) 8200 H (6155-6877) /uL Lymph # (Auto) 1700 (7205-2629) /uL [place] # (Auto) 700 (0-900) /uL Eos # (Auto) 100 (0-450) /uL Baso # (Auto) 100 (0-100) /uL PT 12.7 (10.1-12.7) SECONDS INR 1.1 (0.9-1.3) APTT 29 (26-36) SECONDS Sodium 135 L (137-145) mmol/L Potassium 3.5 (3.4-5.1) mmol/L Chloride 99 (98-107) mmol/L Carbon Dioxide 24 (22-32) mmol/L BUN 26 H (9-20) mg/dL Creatinine 0.98 (0.66-1.25) mg/dL Estimated GFR > 60 (>60) mL/min BUN/Creatinine Ratio 26.5 H (6-22) Glucose 210 H (80-110) mg/dL Calcium 9.4 (8.4-10.2) mg/dL Magnesium 1.9 (1.6-2.3) mg/dL Total Bilirubin 1.0 (0.2-1.3) mg/dL AST 28 (17-59) IU/L ALT 22 (<50) IU/L Alkaline Phosphatase 121 (38-126) U/L Total Creatine Kinase 46 L (55-170) U/L Troponin I 0.064 H (0.01-0.034) ng/mL Total Protein 7.7 (6.3-8.2) g/dL Albumin 4.5 (3.5-5.0) g/dL Globulin 3.2 (1.7-4.1) g/dL Albumin/Globulin Ratio 1.4 (1.0-2.8) Lipase 238 (23-300) U/L Discharge Plan Departure Prescriptions: No Action (DME) blood-glucose meter Misc See Rx Instructions .ROUTE .MEDSUPPLY Qty: 1 0RF Rx Instructions: Use to test blood glucose DAILY (DME) Blood Glucose Test Strip See Rx Instructions .ROUTE .MEDSUPPLY Qty: 100 1RF Rx Instructions: Use to test blood glucose ONCE daily. (DME) lancets [BD Ultra Fine Lancets] 33 gauge misc See Rx Instructions .ROUTE .MEDSUPPLY Qty: 100 1RF Rx Instructions: Use to test blood glucose ONCE daily famotidine 20 mg tablet 20 mg PO BID Qty: 180 3RF pantoprazole 40 mg tablet,delayed release (DR/EC) 40 mg PO BID Qty: 180 3RF glipizide 10 mg tablet extended release 24hr 10 mg PO BID Qty: 180 3RF aspirin [Adult Low Dose Aspirin] 81 mg tablet,delayed release (DR/EC) 81 mg PO DAILY (DME) Disabled Parking See Rx Instructions .ROUTE .MEDSUPPLY Qty: 1 0RF Rx Instructions: Patient qualifies for disabled parking as per the attached form. isosorbide dinitrate 20 mg tablet 20 mg PO BID tamsulosin [Flomax] 0.4 mg capsule 0.4 mg PO BID sertraline 50 mg tablet 50 mg PO DAILY acetaminophen 500 mg capsule 500 mg PO BID PRN folic acid 1 mg tablet 2 mg PO DAILY carvedilol 3.125 mg tablet 3.125 mg PO BID Qty: 60 3RF Rx Instructions: must administer with a meal/food hydrochlorothiazide 12.5 mg capsule 12.5 mg PO BID rosuvastatin 20 mg Tablet 20 mg PO DAILY Gemtesa 75 mg tablet 75 mg PO DAILY Qty: 90 3RF sertraline 100 mg tablet 100 mg PO DAILY Referrals: Matt Medina MD [Primary Care Provider] -
--- NOTE | 2023-01-04 18:46 | PC.NURSE ---
1730 patient walking around unit. informed of wait. verbalized understanding. wanted his IV out . I explained to patient that we need to wait for the imaging to be read. pt went to xray to look at his shoulder. [id number]. went into room and patient was gone. called patient at home. pt was at home. reported that he took his IV out. Dr. Cruz aware and spoke with patient on the phone. pt has a t2 fracture. pt reported to me that he would come back tomorrow. Dr. Cruz spoke to patient in length. pt will not return to ER for Dr. Cruz to evaluate him tonight.
== END 2023-01-04 19:03 | disposition left against medical advice (07) ==
PROVIDERS: Emergency Provider Emergency Medicine; Family Provider Internal Medicine; PCP Internal Medicine
DX: M25.511 Pain in right shoulder (principal); R07.9 Chest pain, unspecified; W19.XXXA Unspecified fall, initial encounter; M48.54XA Collapsed vertebra, not elsewhere classified, thoracic region, initial encounter for fracture
CPT/HCPCS: 36415; 70450; 71045; 72125; 73030; 80053; 82550; 83690; 83735; 84484; 85025; 85610; 85730; 93005; 99283

== ENCOUNTER → 2023-01-16 10:37 | Outpatient (CLI) | payer MEDICARE, OTHER, SELFPAY ==
[2022-08-20 11:22] VITALS: BMI 30.5
== END ==
PROVIDERS: Family Provider Internal Medicine; PCP Internal Medicine; Visit Provider Specialist
DX: N40.1 Benign prostatic hyperplasia with lower urinary tract symptoms (principal); N13.8 Other obstructive and reflux uropathy; N39.41 Urge incontinence; R82.998 Other abnormal findings in urine; Z87.442 Personal history of urinary calculi
CPT/HCPCS: 51798; 81002; 87077; 87086; 87186; 99215

== ENCOUNTER → 2023-02-14 12:51 | Outpatient (CLI) | payer MEDICARE, OTHER, SELFPAY ==
[2022-08-20 11:22] VITALS: BMI 30.5
[2023-02-14 15:50] LABS: BUN Creatinine Ratio 23.1 (6-22); Blood Urea Nitrogen 31 mg/dL (9-20); Calcium 9.6 mg/dL (8.4-10.2); Carbon Dioxide 24 mmol/L (22-32); Chloride 98 mmol/L (98-107); Estimated Glomerular Filt Rate 53 mL/min (>60); Glucose 199 mg/dL (80-110); HEMOLYSIS < 15 (0-50); Magnesium 1.8 mg/dL (1.6-2.3); Potassium 3.6 mmol/L (3.4-5.1); Sodium 135 mmol/L (137-145)
[2023-02-14 16:09] LABS: NT-proBNP (BNP-Adult 18+) 3640 pg/mL (<450)
[2023-02-15 19:10] LABS: Hemoglobin A1C% w Est Avg Glu 8.4 % (4.0-6.0)
== END ==
PROVIDERS: Family Provider Internal Medicine; PCP Internal Medicine; Referring Provider Physician Assistant; Visit Provider Physician Assistant
DX: R06.00 Dyspnea, unspecified (principal); E11.65 Type 2 diabetes mellitus with hyperglycemia; R06.09 Other forms of dyspnea; I10 Essential (primary) hypertension; I50.9 Heart failure, unspecified
CPT/HCPCS: 36415; 80048; 83036; 83735; 83880

== ENCOUNTER → 2023-02-18 15:41 | Outpatient (CLI) | payer MEDICARE, OTHER, SELFPAY ==
[2022-08-20 11:22] VITALS: BMI 30.5
[2023-02-18 17:37] LABS: BUN Creatinine Ratio 26.4 (6-22); Blood Urea Nitrogen 37 mg/dL (9-20); Calcium 9.1 mg/dL (8.4-10.2); Carbon Dioxide 26 mmol/L (22-32); Chloride 98 mmol/L (98-107); Estimated Glomerular Filt Rate 50 mL/min (>60); Glucose 147 mg/dL (80-110); HEMOLYSIS < 15 (0-50); Potassium 3.2 mmol/L (3.4-5.1); Sodium 138 mmol/L (137-145)
[2023-02-18 17:50] LABS: NT-proBNP (BNP-Adult 18+) 2870 pg/mL (<450)
== END ==
PROVIDERS: Family Provider Internal Medicine; PCP Internal Medicine; Referring Provider Physician Assistant; Visit Provider Physician Assistant
DX: R06.09 Other forms of dyspnea (principal)
CPT/HCPCS: 36415; 80048; 83880

== ENCOUNTER → 2023-02-21 12:12 | Outpatient (CLI) | payer MEDICARE, OTHER, SELFPAY ==
[2022-08-20 11:22] VITALS: BMI 30.5
[2023-02-21 14:49] LABS: Add Manual Diff / Slide Review NO; Basophils Absolute Auto 100 /uL (0-100); Eosinophils Absolute Auto 200 /uL (0-450); Eosinophils Percent Auto 1.7 % (2-4); Hematocrit 35.7 % (41-53); Hemoglobin 11.3 g/dL (13.5-17.5); Lymphocytes Absolute Auto 1700 /uL (1100-4500); Lymphocytes Percent Auto 18.8 % (25-40); Mean Corpuscular HGB Conc 31.7 % (30-36); Mean Corpuscular Hemoglobin 23.4 PG (26-34); Mean Corpuscular Volume 73.9 fL (80-100); Monocytes Absolute Auto 700 /uL (0-900); Monocytes Percent Auto 8.2 % (3-14); Neutrophils Absolute Auto 6200 /uL (1500-7000); Neutrophils Percent Auto 70.3 % (50-75); Platelet Count 270 X10^3/uL (150-400); Red Blood Cell Count 4.83 X10^6/uL (4.5-5.9); Red Cell Distribution Width 19.8 % (11.6-14.8); White Blood Cell Count 8.8 X10^3/uL (4.5-11.0)
== END ==
PROVIDERS: Family Provider Internal Medicine; PCP Internal Medicine; Referring Provider Physician Assistant; Visit Provider Physician Assistant
DX: E78.5 Hyperlipidemia, unspecified (principal); R06.09 Other forms of dyspnea; R06.00 Dyspnea, unspecified; I47.20 Ventricular tachycardia, unspecified; I25.10 Atherosclerotic heart disease of native coronary artery without angina pectoris; I10 Essential (primary) hypertension; E11.9 Type 2 diabetes mellitus without complications
CPT/HCPCS: 36415; 85025

== ENCOUNTER 2023-03-07 08:18 | Inpatient (IN) | payer MEDICARE, OTHER, SELFPAY ==
[2022-08-20 11:22] VITALS: BMI 30.5
[2023-03-07] VITALS (17 sets, daily range): BP systolic 123–155; BP diastolic 67–97; PULSE 90–123; RESP 18–35; TEMP 35.8–36.2; O2SAT 93–98; BMI 287.9
--- NOTE | 2023-03-07 08:29 | DI.RAD.S_ITS ---
PROCEDURE: XR CHEST 1V INDICATIONS: Shortness of breath TECHNIQUE: One view of the chest was acquired. COMPARISON: [facility], CR, XR CHEST 1 VIEW, 08/13/2022, 12:09. [facility], CR, XR CHEST 1V, 01/04/2023, 15:54. FINDINGS: Surgical changes and devices: Sternotomy and CABG. Lungs and pleura: Lungs are clear. No pleural effusions or pneumothorax. Mediastinum: Mediastinal contours appear normal. Heart size is moderately enlarged. Bones and chest wall: No suspicious bony lesions. Overlying soft tissues appear unremarkable. IMPRESSION: 1. Moderate cardiomegaly. No confluent pulmonary edema. Dictated by: Lolita Tony M.D. on 03/07/2023 at 8:43 Approved by: Lolita Tony M.D. on 03/07/2023 at 8:43
[2023-03-07 08:52] LABS: Add Manual Diff / Slide Review NO; Basophils Absolute Auto 0 /uL (0-100); Basophils Percent Auto 0.2 % (0-2); Eosinophils Absolute Auto 0 /uL (0-450); Eosinophils Percent Auto 0.2 % (2-4); Hematocrit 38.8 % (41-53); Hemoglobin 12.1 g/dL (13.5-17.5); Lymphocytes Absolute Auto 700 /uL (1100-4500); Lymphocytes Percent Auto 6.8 % (25-40); Mean Corpuscular HGB Conc 31.2 % (30-36); Mean Corpuscular Hemoglobin 23.1 PG (26-34); Monocytes Absolute Auto 600 /uL (0-900); Monocytes Percent Auto 5.7 % (3-14); Neutrophils Absolute Auto 9400 /uL (1500-7000); Neutrophils Percent Auto 87.1 % (50-75); Platelet Count 266 X10^3/uL (150-400); Red Blood Cell Count 5.24 X10^6/uL (4.5-5.9); Red Cell Distribution Width 20.6 % (11.6-14.8); White Blood Cell Count 10.8 X10^3/uL (4.5-11.0)
--- NOTE | 2023-03-07 08:52 | ED_ITS ---
HPI - General Adult General Chief complaint: Shortness of Breath/Dyspnea Stated complaint: difficulty breathing, upper resp Time Seen by Provider: 03/07/23 08:41 Source: patient Mode of arrival: Wheelchair History of Present Illness HPI narrative: Patient is an 82-year-old male. No formal diagnosis of heart failure. Is scheduled to see Cardiology tomorrow. Recently returned home from a vacation. Just prior to vacation he was started on torsemide after calling the cardiology office. He has been taking that daily. He states that soon after starting the medicine his breathing problems actually improved but then started to worsen again. He is here because last evening he had a difficult time lying flat. He states he has a ?wet? sounding lungs and a cough. No fevers. No chest pain. He did have swelling in his legs yesterday but he was traveling yesterday and he thinks that it is actually improved. He has no leg pain. No underlying lung pathology. He does have history of coronary artery disease. Had coronary artery bypass graft many years ago and then stents placed a couple years ago. He states that the symptoms that he presents with today have actually been going on for several weeks if not longer but have been worsening over the past couple weeks and much worse over the past 24 hours. Related Data Home Medications Medication Instructions Recorded Confirmed aspirin 81 mg tablet,delayed 81 mg PO DAILY 09/09/18 02/04/23 release (Adult Low Dose Aspirin) rosuvastatin 20 mg tablet 20 mg PO DAILY 08/17/20 02/04/23 acetaminophen 500 mg capsule 500 mg PO BID PRN 12/08/21 02/04/23 folic acid 1 mg tablet 2 mg PO DAILY 11/09/22 02/04/23 isosorbide dinitrate 20 mg tablet 20 mg PO BID 11/09/22 02/04/23 sertraline 50 mg tablet 50 mg PO DAILY 11/09/22 02/04/23 tamsulosin 0.4 mg capsule (Flomax) 0.4 mg PO BID 11/09/22 02/04/23 torsemide 20 mg tablet 20 mg PO DAILY 02/04/23 02/04/23 Previous Rx's Medication Instructions Recorded blood-glucose meter #1 ea 08/04/21 blood sugar diagnostic (Blood #100 ea 10/31/21 Glucose Test strips) lancets 33 gauge (BD Ultra Fine #100 ea 10/31/21 Lancets) Disabled Parking #1 ea 03/27/22 pantoprazole 40 mg tablet,delayed 40 mg PO BID #180 tabs 08/23/22 release glipizide 10 mg tablet, extended 10 mg PO BID #180 tabs 10/15/22 release 24 hr mirabegron 50 mg tablet,extended 50 mg PO DAILY #90 tabs 01/12/23 release 24 hr nystatin 100,000 unit/gram topical 1 applic topical BID #30 grams 01/16/23 powder carvedilol 3.125 mg tablet 6.25 mg (2 x 3.125 mg) PO BID #180 01/22/23 tabs famotidine 20 mg tablet 20 mg PO BID #180 tabs 02/18/23 hydrochlorothiazide 12.5 mg capsule 12.5 mg PO BID #180 caps 02/18/23 sertraline 100 mg tablet 100 mg PO DAILY #90 tabs 02/18/23 Allergies Allergy/AdvReac Type Severity Reaction Status Date / Time clavulanic acid Allergy Severe Rash/Hives Verified 03/07/23 08:29 [From Augmentin] - internal reaction clopidogrel [From Plavix] Allergy Severe Hives. Verified 03/07/23 08:29 Penicillins Allergy Intermediate HIVES Verified 03/07/23 08:29 empagliflozin AdvReac Severe stomach Verified 03/07/23 08:29 [From Jardiance] pain methotrexate AdvReac Severe Blister Verified 03/07/23 08:29 amoxicillin AdvReac Intermediate Hives Verified 03/07/23 08:29 metformin AdvReac Intermediate diarrhea Verified 03/07/23 08:29 semaglutide [From Ozempic] AdvReac Intermediate pancreatiti Verified 03/07/23 08:29 s [id number] Reductase AdvReac Intermediate fatigue, Verified 03/07/23 08:29 Inhibitor extreme [Sbbialh-Fzo-Yea Reductase Inhibitor] Review of Systems Review of Systems ROS Unobtainable: All systems reviewed & are unremarkable except as noted in HPI and below Constitutional Constitutional: Reports system reviewed and no additional complaints, except as documented Cardiovascular Cardiovascular: Reports system reviewed and no additional complaints, except as documented Respiratory Respiratory: Reports system reviewed and no additional complaints, except as documented Patient History Medical History Mild claudication Recurrent falls Spinal stenosis Tinnitus Diabetes HLD (hyperlipidemia) Depression Incomplete bladder emptying Hayfever (1999) Shoulder pain (2011) Fracture (1952) Chronic back pain (1989) Hepatitis A (1963) Melanoma (1987) Gilbert's syndrome Femur fracture (1965) Primary osteoarthritis of both hips (08/30/15) Polymyalgia rheumatica (08/30/15) Type 2 diabetes mellitus without complication (06/05/15) Benign prostatic hyperplasia with urinary obstruction (03/25/15) Peripheral vascular disease (2009) Coronary artery disease involving [place] coronary artery of [place] heart without angina pectoris (1995) Essential hypertension Mixed hyperlipidemia Surgical History History of coronary artery stent placement History of appendectomy History of orthopedic surgery (1965) Status post appendectomy (1956) Status post coronary artery bypass graft (1995) Family History Father Colon cancer Prostate enlargement Bladder cancer History of hip surgery Pneumonia History of prostate surgery Mother Diabetes mellitus Heart disease Hypertension High cholesterol Osteoporosis History of cataract surgery H/O heart bypass surgery Arthritis Grandfather Arthritis Prostate cancer Colon cancer Deaf Legally blind Grandmother Diabetes mellitus Hypertension Angina pectoris Heart disease Osteoporosis Social History marital status: number of children: 0 household members: spouse lives independently: Yes caregiver/support person: No housing: house pets and animals: Yes education level: other occupational status: other 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: None travel history: other leisure activities: other Smoking Status: Former smoker Tobacco: How many years used: 20 Smokeless tobacco user: other quit status: quit date established second hand exposure: No alcohol intake: current substance use type: does not use and marijuana Smoking Status: Former smoker alcohol intake frequency: 3 or more drinks per day Substance Use Type: does not use Exam Initial Vital Signs Initial Vital Signs: Vital Signs Temperature 97.1 F L 03/07/23 08:21 Pulse Rate 123 H 03/07/23 08:21 Respiratory Rate 24 03/07/23 08:21 Blood Pressure 133/76 03/07/23 08:21 Pulse Oximetry 98 03/07/23 08:21 Oxygen Delivery Method Room Air 01/04/24 08:21 Const General: cooperative, comfortable and No ill appearing [facility] Head: normal to inspection and normocephalic Resp Effort & Inspection: normal respiratory effort Auscultation: rales and rhonchi Cardio Rate: tachycardic Rhythm: regular rhythm GI Inspection: normal to inspection Skin General: no rashes or lesions noted Neuro General: patient alert, patient awake, patient oriented x3 and moves all extremities Extrem General: edema Course Orders Ordered: ED Orders 03/07/23 09:41 EKG-12 Lead Stat 03/07/23 10:16 EC echo complete with contrast Stat 03/07/23 11:46 EKG-12 Lead Stat 03/07/23 12:00 Troponin & CK Cardiac Panel Stat 03/07/23 20:00 Troponin I Q8H 03/08/23 05:00 Basic Metabolic Panel Routine Magnesium Routine NT-proBNP (BNP-Adult 18+) Routine Acetaminophen (Acetaminophen 325 Mg Tablet) 650 mg PO Q6H PRN PRN Reason: Fever/Mild Pain (1-3) Aspirin (Aspirin Ec 81 Mg Tablet) 81 mg PO DAILY [facility] Atorvastatin Calcium (Atorvastatin 20 Mg Tablet) 40 mg PO DAILY [facility] Carvedilol (Carvedilol 3.125 Mg Tablet) 6.25 mg PO BID [facility] Enoxaparin Sodium (Enoxaparin 40 Mg/0.4 Ml Syringe) 40 mg SUBCUT DAILY [facility] Folic Acid (Folic Acid 1 Mg Tablet) 2 mg PO DAILY [facility] Hydrochlorothiazide (Hydrochlorothiazide 25 Mg Tablet) 12.5 mg PO BID [facility] Dextrose (D10w) 100 mls @ 1,200 mls/hr IV PRN PRN PRN Reason: Hypoglycemia Furosemide 80 mg/ Sodium (Chloride) 58 mls @ 116 mls/hr IV Q12H [facility] Insulin Human Lispro (Insulin Lispro 100 Unit/Ml 3ml Vial) 0 unit SUBCUT ACHS [facility]; Protocol Last Admin: 03/07/23 17:28 Dose: 5 unit Documented By: MM Co-signed By: CLL Isosorbide Mononitrate (Isosorbide Mononitrate Er 30 Mg Tablet) 30 mg PO DAILY [facility] Morphine Sulfate (Morphine 2 Mg/Ml Inj) 2 mg IV Q5MIN PRN PRN Reason: Chest Pain Naloxone HCl (Naloxone 0.4 Mg/Ml Vial) 0.2 mg IV Q2MIN PRN PRN Reason: Opiate Reversal Nitroglycerin (Nitroglycerin 0.4 Mg Sl Tab) 0.4 mg SL [id number] PRN PRN Reason: Chest Pain Non-Formulary Medication (Glipizide) 10 mg PO BID [facility] Oxybutynin Chloride (Oxybutynin 5 Mg Er Tab) 10 mg PO DAILY [facility] Oxycodone HCl (Oxycodone Ir 5 Mg Tablet) 5 mg PO Q3H PRN PRN Reason: Pain, Moderate (4-6) Pantoprazole Sodium (Pantoprazole Dr 40 Mg Tablet) 40 mg PO BID [facility] Sertraline HCl (Sertraline 50 Mg Tablet) 150 mg PO DAILY [facility] Tamsulosin HCl (Tamsulosin 0.4 Mg Capsule) 0.4 mg PO BID [facility] Discontinued Medications Aspirin (Aspirin 81 Mg Chew Tab) 324 mg PO NOW ONE Stop: 03/07/23 11:06 Last Admin: 03/07/23 11:25 Dose: 324 mg Documented By: DAVID Furosemide (Furosemide 40 Mg/4 Ml Vial) 40 mg IV NOW ONE Stop: 03/07/23 09:25 Last Admin: 03/07/23 09:36 Dose: 40 mg Documented By: SONYA Furosemide (Furosemide 40 Mg/4 Ml Vial) 40 mg IV NOW ONE Stop: 03/07/23 11:07 Last Admin: 03/07/23 11:25 Dose: 40 mg Documented By: DAVID Vital Signs Vital signs: Vital Signs - 8 hr 03/07/23 10:00 03/07/23 10:00 03/07/23 10:30 Pulse Rate 118 H Respiratory Rate 22 Blood Pressure 146/93 H 153/97 H Pulse Oximetry 95 Oxygen Delivery Method 03/07/23 10:30 03/07/23 11:00 03/07/23 11:00 Pulse Rate 109 H 112 H Respiratory Rate 35 H Blood Pressure 127/75 Pulse Oximetry 93 95 Oxygen Delivery Method 03/07/23 11:30 03/07/23 11:30 03/07/23 12:00 Pulse Rate 115 H 118 H Respiratory Rate 24 30 H Blood Pressure 137/67 Pulse Oximetry 93 94 Oxygen Delivery Method 03/07/23 12:30 03/07/23 12:30 03/07/23 13:00 Pulse Rate 108 H Respiratory Rate Blood Pressure 142/84 H 154/84 H Pulse Oximetry 94 Oxygen Delivery Method Room Air 03/07/23 13:00 03/07/23 13:30 03/07/23 13:30 Pulse Rate 107 H 105 H Respiratory Rate 28 H 24 Blood Pressure 127/82 Pulse Oximetry 95 94 Oxygen Delivery Method 03/07/23 14:03 03/07/23 14:03 Pulse Rate 110 H Respiratory Rate 25 H Blood Pressure 123/90 Pulse Oximetry Oxygen Delivery Method Medical Decision Making Medical Records Medical records reviewed: Yes I reviewed the patient's medical records. Lab Data Lab results reviewed: Yes I reviewed the patient's lab results. 03/07/23 08:44 03/07/23 08:44 Labs: Lab Results 03/07/23 03/07/23 03/07/23 Range/Units 08:44 10:42 12:00 WBC 10.8 (4.5-11.0) X10^3/uL RBC 5.24 (4.5-5.9) X10^6/uL Hgb 12.1 L (13.5-17.5) g/dL Hct 38.8 L (41-53) % MCV 74.0 L (80-100) fL MCH 23.1 L (26-34) PG MCHC 31.2 (30-36) % RDW 20.6 H (11.6-14.8) % Plt Count 266 (150-400) X10^3/uL Neut % (Auto) 87.1 H (50-75) % Lymph % (Auto) 6.8 L (25-40) % [place] % (Auto) 5.7 (3-14) % Eos % (Auto) 0.2 L (2-4) % Baso % (Auto) 0.2 (0-2) % Neut # (Auto) 9400 H (4996-8961) /uL Lymph # (Auto) 700 L (7670-7048) /uL [place] # (Auto) 600 (0-900) /uL Eos # (Auto) 0 (0-450) /uL Baso # (Auto) 0 (0-100) /uL RBC Morphology See below Anisocytosis 1+ H PT 15.5 H (9.4-12.5) SECONDS INR 1.3 (0.9-1.3) Sodium 136 L (137-145) mmol/L Potassium 3.4 (3.4-5.1) mmol/L Chloride 94 L (98-107) mmol/L Carbon Dioxide 24 (22-32) mmol/L BUN 42 H (9-20) mg/dL Creatinine 1.38 H (0.66-1.25) mg/dL Estimated GFR 51 L (>60) mL/min BUN/Creatinine Ratio 30.4 H (6-22) Glucose 305 H (80-110) mg/dL Lactate 3.8 H 2.3 H (0.7-2.1) mmol/L Calcium 9.4 (8.4-10.2) mg/dL Total Bilirubin 1.5 H (0.2-1.3) mg/dL AST TNP ALT 24 (<50) IU/L Alkaline Phosphatase 126 (38-126) U/L Total Creatine Kinase 153 (55-170) U/L Troponin I 0.134 H* 0.159 H* (0.01-0.034) ng/mL NT-Pro-B Natriuret Pep 6300 H (<450) pg/mL Total Protein 8.3 H (6.3-8.2) g/dL Albumin 4.8 (3.5-5.0) g/dL Globulin 3.5 (1.7-4.1) g/dL Albumin/Globulin Ratio 1.4 (1.0-2.8) Chlamy pneumoniae PCR Not detected (Not Detect) Adenovirus (PCR) Not detected (Not Detect) B.parapertussis DNA PCR Not detected (Not Detecte) Coronavirus OC43 (PCR) Not detected (Not Detect) Coronavirus HKU1 (PCR) Not detected (Not Detect) Coronavirus 229E (PCR) Not detected (Not Detect) SARS-CoV-2 (PCR) Not detected (Not Detecte) Coronavirus NL63 (PCR) Not detected (Not Detect) Human Metapneumovir PCR Not detected (Not Detect) Influenza Type A (PCR) Not detected (Not Detect) Influenza Type B (PCR) Not detected (Not Detect) M. pneumoniae (PCR) Not detected (Not Detect) Parainfluenza 1 (PCR) Not detected (Not Detect) Parainfluenza 2 (PCR) Not detected (Not Detect) Parainfluenza 3 (PCR) Not detected (Not Detect) Parainfluenza 4 (PCR) Not detected (Not Detect) RSV (PCR) Detected H (Not Detect) Entero/Rhino (PCR) Not detected (Not Detect) Imaging Data Chest x-ray: Radiologist's Impression: PROCEDURE: XR CHEST 1V INDICATIONS: Shortness of breath TECHNIQUE: One view of the chest was acquired. COMPARISON: [facility], CR, XR CHEST 1 VIEW, 08/13/2022, 12:09. [facility], CR, XR CHEST 1V, 01/04/2023, 15:54. FINDINGS: Surgical changes and devices: Sternotomy and CABG. Lungs and pleura: Lungs are clear. No pleural effusions or pneumothorax. Mediastinum: Mediastinal contours appear normal. Heart size is moderately enlarged. Bones and chest wall: No suspicious bony lesions. Overlying soft tissues appear unremarkable. IMPRESSION: 1. Moderate cardiomegaly. No confluent pulmonary edema. ECHO: Radiologist's Impression: [place] +---------+ [facility] +---------+ : : [address] : [place] : : : : [id number] : : : : Phone: [phone]---------+ Echocardiogram Report + + :Name: SEAMUS BARRIENTOS Study Date: 03/07/2023 Height: 72 in : :[facility] ReadingLocation: Weight: 216 lb : : Gender: Male BSA: 2.2 m2 : :: 1940 Age: 82 yrs BP: 153/97 mmHg: :Reason For Study: CONGESTIVE HEART FAILURE : :Ordering Physician: NEVA, : :JUSTIN Performed By: Jennifer Rodrigues : :Referring: JUSTIN HOOKS : + + Interpretation Summary Left ventricular systolic function is severely reduced. The ejection fraction is estimated to be 20-25%. There is severe hypokinesis of the lateral, inferolateral and anterolateral gerard from base to distal. Left ventricular function has moderately worsened compared to the previous exam. The right ventricle is mildly dilated. Right ventricular systolic function is moderate to severely reduced. The right ventricular systolic pressure is estimated to be at least 50 mmHg based on an estimated right atrial pressure of 15 mm Hg. The left atrium is mildly dilated. There is moderate to severe mitral regurgitation. Compared to the prior echo study, there has been an increase in the severity of mitral regurgitation. Prior echo study on 08/14/2022, showed mild aortic stenosis. There is no other significant valvular heart disease. Procedure: A two-dimensional transthoracic echocardiogram with color flow and Doppler was performed. The study quality was technically difficult. Comparison is made with the echocardiogram of 08/14/2022. A contrast injection of Definity was performed to improve assessment of LV function. The patient had occasional PVCs during the exam. The patient was in sinus tachycardia with heart rates between 99-118 bpm during the exam. Left Ventricle: The estimated left ventricular end diastolic volume is 210 ml. The left ventricle is moderately dilated. Left ventricular systolic function is severely reduced. The ejection fraction is estimated to be 20-25%. Left ventricular function has moderately worsened compared to the previous exam. There is severe hypokinesis of the lateral, inferolateral and anterolateral gerard from base to distal. Diastolic function could not be accurately assessed due to tachycardia. Right Ventricle: The right ventricle is mildly dilated. Right ventricular systolic function is moderate to severely reduced. Atria: The left atrium is mildly dilated. Borderline right atrial enlargement. There is no Doppler evidence for an interatrial shunt. Mitral Valve: The mitral valve leaflets appear mildly thickened, but open well. The mitral valve mean gradient is 4.8 mmHg. There is moderate to severe mitral regurgitation. Compared to the prior echo study, there has been an increase in the severity of mitral regurgitation. Aortic Valve: The aortic valve is mildly calcified. Mild aortic stenosis on previous exam 08/14/2022. No aortic regurgitation is present. Tricuspid Valve: The tricuspid valve is not well visualized, but is grossly normal. There is mild tricuspid regurgitation. The right ventricular systolic pressure is estimated to be at least 50 mmHg based on an estimated right atrial pressure of 15 mm Hg. Pulmonic Valve: The pulmonic valve leaflets are thin and pliable; valve motion is normal. There is mild pulmonic regurgitation. There is no other significant valvular heart disease. Great Vessels: The aortic root is normal size. The dimensions of the ascending aorta are normal. The aortic arch is mildly enlarged. The IVC is dilated (diameter is greater than 2.1 cm) and it collapses less than 50% with a sniff. This suggests a high right atrial pressure of 15 mm Hg. Pericardium/ Pleura There is no pericardial effusion. There is no pleural effusion. MMode/2D Measurements & Calculations LVIDd: 6.0 cm LVOT diam: 2.1 cm LVIDs: 5.4 cm Ao root diam: 3.5 cm FS: 8.9 % asc Aorta Diam: 3.5 cm EPSS: 1.9 cm Ao Arch Diam (Prox Trans): 3.4 cm IVSd: 0.95 cm LVPWd: 0.86 cm LV palma. diameter/BSA (cm/m^2): 2.7 LV sys. diameter/BSA (cm/m^2): 2.5 LA A2 area: 18.8 cm2 RA long axis: 5.2 cm LA A4 area: 20.7 cm2 RA area: 20.3 cm2 LA length (vol): 5.2 cm RA vol: 67.4 ml LA vol: 62.9 ml RA : 30.6 ml/m2 LA vol index: 28.6 ml/m2 IVC diam: 2.4 cm RVD1 (basal): 4.6 cm TAPSE: 0.86 cm Doppler Measurements & Calculations Ao V2 max: 155.7 cm/sec LVOT Max Rashawn: 67.2 cm/sec Ao V2 mean: 108.6 cm/sec LV V1 max P.8 mmHg Ao max P.7 mmHg LV V1 VTI: 8.9 cm Ao mean P.3 mmHg JUAN RAMON(I,D): 1.4 cm2 Ao V2 VTI: 22.4 cm JUAN RAMON(V,D): 1.5 cm2 sev ratio: 0.40 JUAN RAMON indexed to BSA (cm^2/m^2): 0.64 MV E max rashawn: 140.5 cm/sec TR max rashawn: 299.2 cm/sec MV A max rashawn: 1.6 cm/sec TR max P.8 mmHg MV E/A: 86.6 PA V2 max: 55.5 cm/sec Med Peak E' Rashawn: 9.6 cm/sec PA V2 mean: 39.5 cm/sec E/E' med: 14.7 PA mean P.67 mmHg Lat Peak E' Rashawn: 9.7 cm/sec PA pr(Accel): 57.6 mmHg E/E' lat: 14.4 E/e' average: 14.6 MV dec time: 0.10 sec MVA(VTI): 1.2 cm2 MV V2 mean: 97.9 cm/sec SV(LVOT): 31.8 ml MV mean P.8 mmHg MV V2 VTI: 27.4 cm Reading Physician:12:32 PM ECG Data Attestation: I personally reviewed and interpreted this ECG as follows: Interpretation: Sinus rhythm Ventricular rate of 120 Occasional PVC Inverted T-waves V1 V2 V3 and V4 Other nonspecific ST T wave changes Repeat EKG Sinus tachycardia Ventricular rate 112 Normal QRS T-waves unchanged from prior MDM Narrative Medical decision making narrative: Progressively worsening shortness of breath over the past several weeks what specific with the past 24 hours. No chest pain. Patient clinically is fluid overloaded. After 2 doses of Lasix he did start to diurese and states he is feeling better. He also now was positive for RSV which I suspect is contributing to his presenting symptoms today. Troponin elevated. I did discuss the case with his nitrogen operator who recommended diuresis. His echocardiogram that I was able to obtain here out of the emergency department is worse than in August of last year. His ejection fraction is much less than in August and his mitral regurgitation is worse. Cardiology did not think that there was any emergent procedures that would be needed. I discuss the case with Dr. Medina who is the patient's primary provider. We will admit for continued evaluation and treatment. Discussed the need for admission with the patient. He expressed understanding and agreement as well. Discharge Plan Departure Patient Disposition: Admitted As Inpatient Clinical Impression: CHF (congestive heart failure), Respiratory syncytial virus (RSV) infection, Orthopnea, XIE (dyspnea on exertion) Admit Date/Time: 03/07/23 14:15 Admit Provider: Matt Medina
[2023-03-07 08:59] LABS: INR 1.3 (0.9-1.3); Prothrombin Time 15.5 SECONDS (9.4-12.5)
[2023-03-07 09:06] LABS: BUN Creatinine Ratio 30.4 (6-22); Blood Urea Nitrogen 42 mg/dL (9-20); Calcium 9.4 mg/dL (8.4-10.2); Carbon Dioxide 24 mmol/L (22-32); Chloride 94 mmol/L (98-107); Estimated Glomerular Filt Rate 51 mL/min (>60); Glucose 305 mg/dL (80-110); HEMOLYSIS < 15 (0-50); Lactate (Lactic Acid) 3.8 mmol/L (0.7-2.1); Potassium 3.4 mmol/L (3.4-5.1); Sodium 136 mmol/L (137-145)
[2023-03-07 09:18] LABS: NT-proBNP (BNP-Adult 18+) 6300 pg/mL (<450)
[2023-03-07 09:20] LABS: Alanine Aminotransferase 24 IU/L (<50); Albumin 4.8 g/dL (3.5-5.0); Albumin Globulin Ratio 1.4 (1.0-2.8); Alkaline Phosphatase 126 U/L (38-126); Bilirubin Total 1.5 mg/dL (0.2-1.3); Globulin 3.5 g/dL (1.7-4.1); Total Protein 8.3 g/dL (6.3-8.2)
[2023-03-07] MEDS: FUROSEMIDE 40 MG/4 ML VIAL IV ×2 (09:36→11:25)
[2023-03-07 10:01] LABS: Anisocytosis 1+
[2023-03-07 10:04] LABS: Troponin I 0.134 ng/mL (0.01-0.034)
[2023-03-07 10:07] LABS: Adenovirus Not Detected (Not Detect); B. parapertussis Not Detected (Not Detecte); Bordetella pertussis Not Detected (Not Detect); Chlamydophila pneumoniae Not Detected (Not Detect); Coronavirus 229E Not Detected (Not Detect); Coronavirus HKU1 Not Detected (Not Detect); Coronavirus NL 63 Not Detected (Not Detect); Coronavirus OC43 Not Detected (Not Detect); Human Metapneumovirus Not Detected (Not Detect); Human Rhinovirus/Enterovirus Not Detected (Not Detect); Influenza A Not Detected (Not Detect); Influenza B Not Detected (Not Detect); Mycoplasma pneumoniae Not Detected (Not Detect); Parainfluenza Virus 1 Not Detected (Not Detect); Parainfluenza Virus 2 Not Detected (Not Detect); Parainfluenza Virus 3 Not Detected (Not Detect); Parainfluenza Virus 4 Not Detected (Not Detect); Respiratory Syncytial Virus Detected (Not Detect); SARS- CoV-2 Not Detected (Not Detecte)
--- NOTE | 2023-03-07 10:16 | DI.ECHO.S_ITS ---
[facility]---------+ [facility] +---------+ : : [address] : : : : [id number] : : : : Phone: [phone]+ Echocardiogram Report + + :Name: SEAMUS BARRIENTOS Study Date: 03/07/2023 Height: 72 in : :[facility] ReadingLocation: Weight: 216 lb : : Gender: Male BSA: 2.2 m2 : :: 1940 Age: 82 yrs BP: 153/97 mmHg: :Reason For Study: CONGESTIVE HEART FAILURE : :Ordering Physician: NEVA, : :JUSTIN Performed By: Jennifer Rodrigues : :Referring: JUSTIN HOOKS : + + Interpretation Summary Left ventricular systolic function is severely reduced. The ejection fraction is estimated to be 20-25%. There is severe hypokinesis of the lateral, inferolateral and anterolateral gerard from base to distal. Left ventricular function has moderately worsened compared to the previous exam. The right ventricle is mildly dilated. Right ventricular systolic function is moderate to severely reduced. The right ventricular systolic pressure is estimated to be at least 50 mmHg based on an estimated right atrial pressure of 15 mm Hg. The left atrium is mildly dilated. There is moderate to severe mitral regurgitation. Compared to the prior echo study, there has been an increase in the severity of mitral regurgitation. Prior echo study on 08/14/2022, showed mild aortic stenosis. There is no other significant valvular heart disease. Procedure: A two-dimensional transthoracic echocardiogram with color flow and Doppler was performed. The study quality was technically difficult. Comparison is made with the echocardiogram of 08/14/2022. A contrast injection of Definity was performed to improve assessment of LV function. The patient had occasional PVCs during the exam. The patient was in sinus tachycardia with heart rates between 99-118 bpm during the exam. Left Ventricle: The estimated left ventricular end diastolic volume is 210 ml. The left ventricle is moderately dilated. Left ventricular systolic function is severely reduced. The ejection fraction is estimated to be 20-25%. Left ventricular function has moderately worsened compared to the previous exam. There is severe hypokinesis of the lateral, inferolateral and anterolateral gerard from base to distal. Diastolic function could not be accurately assessed due to tachycardia. Right Ventricle: The right ventricle is mildly dilated. Right ventricular systolic function is moderate to severely reduced. Atria: The left atrium is mildly dilated. Borderline right atrial enlargement. There is no Doppler evidence for an interatrial shunt. Mitral Valve: The mitral valve leaflets appear mildly thickened, but open well. The mitral valve mean gradient is 4.8 mmHg. There is moderate to severe mitral regurgitation. Compared to the prior echo study, there has been an increase in the severity of mitral regurgitation. Aortic Valve: The aortic valve is mildly calcified. Mild aortic stenosis on previous exam 08/14/2022. No aortic regurgitation is present. Tricuspid Valve: The tricuspid valve is not well visualized, but is grossly normal. There is mild tricuspid regurgitation. The right ventricular systolic pressure is estimated to be at least 50 mmHg based on an estimated right atrial pressure of 15 mm Hg. Pulmonic Valve: The pulmonic valve leaflets are thin and pliable; valve motion is normal. There is mild pulmonic regurgitation. There is no other significant valvular heart disease. Great Vessels: The aortic root is normal size. The dimensions of the ascending aorta are normal. The aortic arch is mildly enlarged. The IVC is dilated (diameter is greater than 2.1 cm) and it collapses less than 50% with a sniff. This suggests a high right atrial pressure of 15 mm Hg. Pericardium/ Pleura There is no pericardial effusion. There is no pleural effusion. MMode/2D Measurements & Calculations LVIDd: 6.0 cm LVOT diam: 2.1 cm LVIDs: 5.4 cm Ao root diam: 3.5 cm FS: 8.9 % asc Aorta Diam: 3.5 cm EPSS: 1.9 cm Ao Arch Diam (Prox Trans): 3.4 cm IVSd: 0.95 cm LVPWd: 0.86 cm LV palma. diameter/BSA (cm/m^2): 2.7 LV sys. diameter/BSA (cm/m^2): 2.5 LA A2 area: 18.8 cm2 RA long axis: 5.2 cm LA A4 area: 20.7 cm2 RA area: 20.3 cm2 LA length (vol): 5.2 cm RA vol: 67.4 ml LA vol: 62.9 ml RA : 30.6 ml/m2 LA vol index: 28.6 ml/m2 IVC diam: 2.4 cm RVD1 (basal): 4.6 cm TAPSE: 0.86 cm Doppler Measurements & Calculations Ao V2 max: 155.7 cm/sec LVOT Max Rashawn: 67.2 cm/sec Ao V2 mean: 108.6 cm/sec LV V1 max P.8 mmHg Ao max P.7 mmHg LV V1 VTI: 8.9 cm Ao mean P.3 mmHg JUAN RAMON(I,D): 1.4 cm2 Ao V2 VTI: 22.4 cm JUAN RAMON(V,D): 1.5 cm2 sev ratio: 0.40 JUAN RAMON indexed to BSA (cm^2/m^2): 0.64 MV E max rashawn: 140.5 cm/sec TR max rashawn: 299.2 cm/sec MV A max rashawn: 1.6 cm/sec TR max P.8 mmHg MV E/A: 86.6 PA V2 max: 55.5 cm/sec Med Peak E' Rashawn: 9.6 cm/sec PA V2 mean: 39.5 cm/sec E/E' med: 14.7 PA mean P.67 mmHg Lat Peak E' Rashawn: 9.7 cm/sec PA pr(Accel): 57.6 mmHg E/E' lat: 14.4 E/e' average: 14.6 MV dec time: 0.10 sec MVA(VTI): 1.2 cm2 MV V2 mean: 97.9 cm/sec SV(LVOT): 31.8 ml MV mean P.8 mmHg MV V2 VTI: 27.4 cm Reading Physician:12:32 PM
[2023-03-07 10:30] LABS: Reflexed Lactate in 2 Hours Y
[2023-03-07 11:18] LABS: Lactate 2HR (Lactic Acid Rflx) 2.3 mmol/L (0.7-2.1)
[2023-03-07] MEDS: ASPIRIN 81 MG CHEW TAB 324 MG PO (11:25)
[2023-03-07 12:32] LABS: Creatine Kinase 153 U/L (55-170)
[2023-03-07 13:06] LABS: Troponin I 0.159 ng/mL (0.01-0.034)
--- NOTE | 2023-03-07 14:41 | PM.HP.1 ---
History of Present Illness History of Present Illness Date Patient Seen: 03/07/23 Time Patient Seen: 14:41 Chief complaint: difficulty breathing, upper resp Narrative: Patient is an 82-year-old male with a complicated medical history well known to me. He presented to the ER with several days if not longer of difficulty breathing including orthopnea as well as PND. He reports his symptoms actually began during a trip to [facility] around [place]. He had difficulty doing much of anything became increasingly short of breath over time. This morning he woke up and really could not breathe at all which is why he came to the emergency department. In the ER he was found to have probable acute congestive heart failure as well as positive test for RSV. He was not overly hypoxic on room air with a room air oxygen saturation 94%. Echocardiography was obtained in the emergency department as part of his evaluation which demonstrated a new (compared to August 2022) worsening left ventricular function with an left ventricular ejection fraction now in the 20-25% range as well as worsening mitral regurgitation. Also had a minimally positive troponin. Patient had prior cardiac workup including cardiac stress testing in December 2021 that did not show any reversible ischemia. He even had a MRI of the myocardium which did demonstrate some viable myocardium and on that is study his left ventricular ejection fraction was more like 30%, this was in 2021 as well. Patient also with known history of nonsustained ventricular tachycardia on cardiac monitoring. The ER Physician discussed his case with his animal husbandry teacher, who is not local, who recommended admission for diuresis and would continue as an outpatient to workup his new found worsening cardiomyopathy mitral valve disease and elevated troponin etcetera Patient received 20 mg of Lasix on 2 occasions with some urine output although not dramatically so. Patient is admitted for continued diuresis and managed of above issues, as well as his chronic issues including his diabetes, PMR, and chronic arthralgias [facility] Medical History (Updated 03/08/23 @ 07:15 by Matt Medina MD) Nonsustained paroxysmal ventricular tachycardia Mild claudication Recurrent falls Spinal stenosis Tinnitus Diabetes HLD (hyperlipidemia) Depression Incomplete bladder emptying Hayfever (1999) Shoulder pain (2011) Fracture (1951) Chronic back pain (1989) Hepatitis A (1963) Melanoma (1987) Gilbert's syndrome Femur fracture (1965) Primary osteoarthritis of both hips (08/30/15) Polymyalgia rheumatica (08/30/15) Type 2 diabetes mellitus without complication (06/05/15) Benign prostatic hyperplasia with urinary obstruction (03/25/15) Peripheral vascular disease (2009) Coronary artery disease involving [place] coronary artery of [place] heart without angina pectoris (1995) Essential hypertension Mixed hyperlipidemia Surgical History History of coronary artery stent placement History of appendectomy History of orthopedic surgery (1965) Status post appendectomy (1956) Status post coronary artery bypass graft (1995) Family History Father Colon cancer Prostate enlargement Bladder cancer History of hip surgery Pneumonia History of prostate surgery Mother Diabetes mellitus Heart disease Hypertension High cholesterol Osteoporosis History of cataract surgery H/O heart bypass surgery Arthritis Grandfather Arthritis Prostate cancer Colon cancer Deaf Legally blind Grandmother Diabetes mellitus Hypertension Angina pectoris Heart disease Osteoporosis Social History marital status: number of children: 0 household members: spouse lives independently: Yes caregiver/support person: No housing: house pets and animals: Yes education level: other occupational status: other 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: None travel history: other leisure activities: other Smoking Status: Former smoker Tobacco: How many years used: 20 Smokeless tobacco user: other quit status: quit date established second hand exposure: No alcohol intake: current substance use type: does not use and marijuana Meds Home Medications and Allergies Home Medications Medication Instructions Recorded Confirmed Type aspirin 81 mg tablet,delayed 81 mg PO DAILY 09/09/18 03/08/23 History release (Adult Low Dose Aspirin) rosuvastatin 20 mg tablet 20 mg PO DAILY 08/17/20 02/04/23 History blood-glucose meter #1 ea 08/04/21 02/04/23 Rx blood sugar diagnostic (Blood #100 ea 10/31/21 02/04/23 Rx Glucose Test strips) lancets 33 gauge (BD Ultra Fine #100 ea 10/31/21 02/04/23 Rx Lancets) acetaminophen 500 mg capsule 500 mg PO BID PRN Pain, Mild 12/08/21 03/08/23 History Disabled Parking #1 ea 03/27/22 02/04/23 Rx pantoprazole 40 mg tablet,delayed 40 mg PO BID #180 tabs 08/23/22 02/04/23 Rx release glipizide 10 mg tablet, extended 10 mg PO BID #180 tabs 10/15/22 03/08/23 Rx release 24 hr folic acid 1 mg tablet 2 mg PO DAILY 11/09/22 03/08/23 History isosorbide dinitrate 20 mg tablet 20 mg PO BID 11/09/22 03/08/23 History sertraline 50 mg tablet 50 mg PO DAILY 11/09/22 02/04/23 History tamsulosin 0.4 mg capsule (Flomax) 0.4 mg PO BID 11/09/22 03/08/23 History mirabegron 50 mg tablet,extended 50 mg PO DAILY #90 tabs 01/12/23 02/04/23 Rx release 24 hr nystatin 100,000 unit/gram topical 1 applic topical BID #30 grams 01/16/23 02/04/23 Rx powder carvedilol 3.125 mg tablet 6.25 mg (2 x 3.125 mg) PO BID #180 01/22/23 03/08/23 Rx tabs torsemide 20 mg tablet 20 mg PO DAILY 02/04/23 02/04/23 History famotidine 20 mg tablet 20 mg PO BID #180 tabs 02/18/23 03/08/23 Rx hydrochlorothiazide 12.5 mg capsule 12.5 mg PO BID #180 caps 02/18/23 03/08/23 Rx sertraline 100 mg tablet 100 mg PO DAILY #90 tabs 02/18/23 Rx Allergies Allergy/AdvReac Type Severity Reaction Status Date / Time clavulanic acid Allergy Severe Rash/Hives Verified 03/07/23 08:29 [From Augmentin] - internal reaction clopidogrel [From Plavix] Allergy Severe Hives. Verified 03/07/23 08:29 Penicillins Allergy Intermediate HIVES Verified 03/07/23 08:29 empagliflozin AdvReac Severe stomach Verified 03/07/23 08:29 [From Jardiance] pain methotrexate AdvReac Severe Blister Verified 03/07/23 08:29 amoxicillin AdvReac Intermediate Hives Verified 03/07/23 08:29 metformin AdvReac Intermediate diarrhea Verified 03/07/23 08:29 semaglutide [From Ozempic] AdvReac Intermediate pancreatiti Verified 03/07/23 08:29 s [id number] Reductase AdvReac Intermediate fatigue, Verified 03/07/23 08:29 Inhibitor extreme [Sktcqxu-[id number] Reductase Inhibitor] Review of Systems Review of Systems ROS: Yes All systems reviewed with the patient and are negative except as otherwise documented Exam Vital Signs (past 8 hours): - 03/07/23 08:21 03/07/23 08:40 03/07/23 09:00 Temperature 97.1 F L Pulse Rate 123 H 118 H Respiratory Rate 24 27 H Blood Pressure 133/76 152/96 H Pulse Oximetry 98 94 Oxygen Delivery Method Room Air Room Air 03/07/23 09:00 03/07/23 09:30 03/07/23 09:30 Temperature Pulse Rate 117 H 110 H Respiratory Rate 24 23 Blood Pressure 155/87 H Pulse Oximetry 94 93 Oxygen Delivery Method 03/07/23 10:00 03/07/23 10:00 03/07/23 10:30 Temperature Pulse Rate 118 H Respiratory Rate 22 Blood Pressure 146/93 H 153/97 H Pulse Oximetry 95 Oxygen Delivery Method 03/07/23 10:30 03/07/23 11:00 03/07/23 11:00 Temperature Pulse Rate 109 H 112 H Respiratory Rate 35 H Blood Pressure 127/75 Pulse Oximetry 93 95 Oxygen Delivery Method 03/07/23 11:30 03/07/23 11:30 03/07/23 12:00 Temperature Pulse Rate 115 H 118 H Respiratory Rate 24 30 H Blood Pressure 137/67 Pulse Oximetry 93 94 Oxygen Delivery Method 03/07/23 12:30 03/07/23 12:30 03/07/23 13:00 Temperature Pulse Rate 108 H Respiratory Rate Blood Pressure 142/84 H 154/84 H Pulse Oximetry 94 Oxygen Delivery Method Room Air 03/07/23 13:00 03/07/23 13:30 03/07/23 13:30 Temperature Pulse Rate 107 H 105 H Respiratory Rate 28 H 24 Blood Pressure 127/82 Pulse Oximetry 95 94 Oxygen Delivery Method Oxygen Delivery Method Room Air Narrative Exam Narrative: Elderly but not acutely ill-appearing male who actually looks better than he has at other times in the outpatient clinic setting up in his hospital bed HEENT-unremarkable Neck-no bruits Lungs-crackles at the bases although clear to some degree with deep breathing, scattered wheezes throughout Heart-regular rate and rhythm Abdomen-benign, obese, positive bowel tones soft nontender nondistended Extremities-2+ pitting edema at the ankles bilaterally Objective Labs 03/07/23 08:44 03/08/23 03:13 Labs: Laboratory Results - last 24 hr 03/07/23 03/07/23 03/07/23 08:44 10:42 12:00 WBC 10.8 RBC 5.24 Hgb 12.1 L Hct 38.8 L MCV 74.0 L MCH 23.1 L MCHC 31.2 RDW 20.6 H Plt Count 266 Neut % (Auto) 87.1 H Lymph % (Auto) 6.8 L Hayes % (Auto) 5.7 Eos % (Auto) 0.2 L Baso % (Auto) 0.2 Neut # (Auto) 9400 H Lymph # (Auto) 700 L Hayes # (Auto) 600 Eos # (Auto) 0 Baso # (Auto) 0 RBC Morphology See below Anisocytosis 1+ H PT 15.5 H INR 1.3 Sodium 136 L Potassium 3.4 Chloride 94 L Carbon Dioxide 24 BUN 42 H Creatinine 1.38 H Estimated GFR 51 L BUN/Creatinine Ratio 30.4 H Glucose 305 H Lactate 3.8 H 2.3 H Calcium 9.4 Total Bilirubin 1.5 H AST TNP ALT 24 Alkaline Phosphatase 126 Total Creatine Kinase 153 Troponin I 0.134 H* 0.159 H* NT-Pro-B Natriuret Pep 6300 H Total Protein 8.3 H Albumin 4.8 Globulin 3.5 Albumin/Globulin Ratio 1.4 Chlamy pneumoniae PCR Not detected Adenovirus (PCR) Not detected B.parapertussis DNA PCR Not detected Coronavirus OC43 (PCR) Not detected Coronavirus HKU1 (PCR) Not detected Coronavirus 229E (PCR) Not detected SARS-CoV-2 (PCR) Not detected Coronavirus NL63 (PCR) Not detected Human Metapneumovir PCR Not detected Influenza Type A (PCR) Not detected Influenza Type B (PCR) Not detected M. pneumoniae (PCR) Not detected Parainfluenza 1 (PCR) Not detected Parainfluenza 2 (PCR) Not detected Parainfluenza 3 (PCR) Not detected Parainfluenza 4 (PCR) Not detected RSV (PCR) Detected H Entero/Rhino (PCR) Not detected Assessment & Plan Assessment & Plan narrative: 1. Acute congestive heart failure due to systolic dysfunction or reduced left ventricular ejection fraction-continue with aggressive diuresis while monitoring renal function. Hopefully this is sort of location of multiple things and will resolve with appropriate treatment. Oxygen as necessary specially given his elevated troponin, although does not appear to need oxygen supplement at this time 2. RSV-patient's since perhaps in part due to his RSV infection. He does have some infectious symptoms and while it has not clear that there is evidence of a viral type cardiomyopathy suppose that could be playing a role here as well. Continue with conservative/supportive care in this regard 3. Elevated troponin-patient with known coronary artery disease has had some recent cardiac evaluation that is refilled demonstrate any significant ischemia. Will clearly need to have repeat evaluation cardiology when discharged from the hospital as noted above. Will trend troponin for now and if rises more dramatically then we need to re-evaluate that strategy, may well need cardiac catheterization etcetera. However I do not anticipate that at this time. 4. Chronic renal failure-need to monitor patient's renal function while aggressive diuresing him for his congestive heart failure. 5. Diabetes-continue patient's usual oral medications so as a diabetic diet. Will use insulin for coverage as necessary for hyperglycemia 6. PMR/chronic arthralgias-continue patient's usual medications and add some low-dose opiate narcotics as well as necessary 7. Depression-continue patient's usual medications 8. VTE prophylaxis-Lovenox has been ordered and is appropriate in addition to SCDs 9. Code status-patient requests full code in the event of a sudden cardiac or respiratory arrest although he would not want to be kept alive if there was no chance of recovery and or in a vegetative state
[2023-03-07] MEDS: INSULIN LISPRO 100 UNIT/ML 3ML VIAL SUBCUT ×2 (17:28→21:09)
[2023-03-07] MEDS: FUROSEMIDE 80 MG in SODIUM CHLORIDE 0.9% 50 ML 116 MG IV (18:56)
[2023-03-07 20:44] LABS: Troponin I 0.494 ng/mL (0.01-0.034)
[2023-03-07] MEDS: BENZONATATE 100 MG CAPSULE 200 MG PO (21:08)
[2023-03-07] MEDS: PANTOPRAZOLE DR 40 MG TABLET PO (21:08)
[2023-03-07] MEDS: carvediloL 3.125 MG TABLET 6.25 MG PO (21:08)
[2023-03-07] MEDS: hydroCHLOROthiazide 25 MG TABLET 12.5 MG PO (21:08)
[2023-03-07] MEDS: TAMSULOSIN 0.4 MG CAPSULE PO (21:09)
[2023-03-08] VITALS (13 sets, daily range): BP systolic 102–122; BP diastolic 64–83; PULSE 88–109; RESP 16–20; TEMP 35.8–36.1; O2SAT 95–98
[2023-03-08 03:35] LABS: BUN Creatinine Ratio 36.9 (6-22); Blood Urea Nitrogen 45 mg/dL (9-20); Calcium 9.3 mg/dL (8.4-10.2); Carbon Dioxide 28 mmol/L (22-32); Chloride 93 mmol/L (98-107); Estimated Glomerular Filt Rate 60 mL/min (>60); Glucose 183 mg/dL (80-110); HEMOLYSIS < 15 (0-50); Magnesium 1.6 mg/dL (1.6-2.3); Sodium 137 mmol/L (137-145)
[2023-03-08 03:50] LABS: Potassium 2.7 mmol/L (3.4-5.1)
[2023-03-08 03:52] LABS: NT-proBNP (BNP-Adult 18+) 9830 pg/mL (<450)
[2023-03-08] MEDS: POTASSIUM CHLORIDE IN WATER 10 MEQ/100 ML PIGGYBACK 100 MEQ IV ×8 (04:15→14:53)
[2023-03-08 05:52] LABS: Troponin I 0.743 ng/mL (0.01-0.034)
--- NOTE | 2023-03-08 06:49 | PC.NURSE ---
Tele ICU notified this RN of 2 brief episodes of vtach ~ 0130 and 0245 as noted in tele documentation. Patient assessed and was asymptomatic. Provider made aware at 0145, and AM labs drawn at 0300 as resulted in chart, with critical low values for K (2.7). Provider again made aware, and 80 meq K-riders ordered as documented in MAR.
--- NOTE | 2023-03-08 07:15 | PM.PN.1 ---
Subjective Subjective Date Patient Seen: 03/08/23 Time Patient Seen: 07:16 Interval history: Overnight patient had runs of nonsustained ventricular tachycardia in the 20 be range or so, that were asymptomatic. Found to be hypokalemic on testing which is undergoing replacement Also troponin continues to slowly climb, most recent number at 0.743, compared to 0.134 upon admission to the ER Patient other than coughing presumably from his RSV remains relatively asymptomatic. Patient does report his cough is better this morning. Actually bored, wants to go home which is probably a sign that he is feeling better Exam Vital Signs (past 8 hours): - 03/08/23 00:00 03/08/23 00:00 03/08/23 04:00 Temperature 96.5 F L Pulse Rate 94 H Respiratory Rate 17 Blood Pressure 109/76 Pulse Oximetry 96 98 98 Oxygen Delivery Method Room Air Room Air Oxygen Flow Rate 0 0 0 03/08/23 04:00 Temperature 96.7 F L Pulse Rate 88 Respiratory Rate 16 Blood Pressure 113/71 Pulse Oximetry 95 Oxygen Delivery Method Oxygen Flow Rate 0 Oxygen Delivery Method Room Air Oxygen Flow Rate 0 Objective Labs 03/07/23 08:44 03/08/23 03:13 Labs: Laboratory Results - last 24 hr 03/07/23 03/07/23 03/07/23 08:44 10:42 12:00 WBC 10.8 RBC 5.24 Hgb 12.1 L Hct 38.8 L MCV 74.0 L MCH 23.1 L MCHC 31.2 RDW 20.6 H Plt Count 266 Neut % (Auto) 87.1 H Lymph % (Auto) 6.8 L Bollinger % (Auto) 5.7 Eos % (Auto) 0.2 L Baso % (Auto) 0.2 Neut # (Auto) 9400 H Lymph # (Auto) 700 L Bollinger # (Auto) 600 Eos # (Auto) 0 Baso # (Auto) 0 RBC Morphology See below Anisocytosis 1+ H PT 15.5 H INR 1.3 Sodium 136 L Potassium 3.4 Chloride 94 L Carbon Dioxide 24 BUN 42 H Creatinine 1.38 H Estimated GFR 51 L BUN/Creatinine Ratio 30.4 H Glucose 305 H Lactate 3.8 H 2.3 H Calcium 9.4 Magnesium Total Bilirubin 1.5 H AST TNP ALT 24 Alkaline Phosphatase 126 Total Creatine Kinase 153 Troponin I 0.134 H* 0.159 H* NT-Pro-B Natriuret Pep 6300 H Total Protein 8.3 H Albumin 4.8 Globulin 3.5 Albumin/Globulin Ratio 1.4 Chlamy pneumoniae PCR Not detected Adenovirus (PCR) Not detected B.parapertussis DNA PCR Not detected Coronavirus OC43 (PCR) Not detected Coronavirus HKU1 (PCR) Not detected Coronavirus 229E (PCR) Not detected SARS-CoV-2 (PCR) Not detected Coronavirus NL63 (PCR) Not detected Human Metapneumovir PCR Not detected Influenza Type A (PCR) Not detected Influenza Type B (PCR) Not detected M. pneumoniae (PCR) Not detected Parainfluenza 1 (PCR) Not detected Parainfluenza 2 (PCR) Not detected Parainfluenza 3 (PCR) Not detected Parainfluenza 4 (PCR) Not detected RSV (PCR) Detected H Entero/Rhino (PCR) Not detected 03/07/23 03/08/23 20:00 03:13 WBC RBC Hgb Hct MCV MCH MCHC RDW Plt Count Neut % (Auto) Lymph % (Auto) Bollinger % (Auto) Eos % (Auto) Baso % (Auto) Neut # (Auto) Lymph # (Auto) Bollinger # (Auto) Eos # (Auto) Baso # (Auto) RBC Morphology Anisocytosis PT INR Sodium 137 Potassium 2.7 L* Chloride 93 L Carbon Dioxide 28 BUN 45 H Creatinine 1.22 Estimated GFR 60 BUN/Creatinine Ratio 36.9 H Glucose 183 H D Lactate Calcium 9.3 Magnesium 1.6 Total Bilirubin AST ALT Alkaline Phosphatase Total Creatine Kinase Troponin I 0.494 H* 0.743 H* NT-Pro-B Natriuret Pep 9830 H Total Protein Albumin Globulin Albumin/Globulin Ratio Chlamy pneumoniae PCR Adenovirus (PCR) B.parapertussis DNA PCR Coronavirus OC43 (PCR) Coronavirus HKU1 (PCR) Coronavirus 229E (PCR) SARS-CoV-2 (PCR) Coronavirus NL63 (PCR) Human Metapneumovir PCR Influenza Type A (PCR) Influenza Type B (PCR) M. pneumoniae (PCR) Parainfluenza 1 (PCR) Parainfluenza 2 (PCR) Parainfluenza 3 (PCR) Parainfluenza 4 (PCR) RSV (PCR) Entero/Rhino (PCR) [facility] Medical History (Updated 03/08/23 @ 07:15 by Matt Medina MD) Nonsustained paroxysmal ventricular tachycardia Mild claudication Recurrent falls Spinal stenosis Tinnitus Diabetes HLD (hyperlipidemia) Depression Incomplete bladder emptying Hayfever (1999) Shoulder pain (2011) Fracture (195) Chronic back pain (1989) Hepatitis A (1963) Melanoma (1987) Gilbert's syndrome Femur fracture (1965) Primary osteoarthritis of both hips (08/30/15) Polymyalgia rheumatica (08/30/15) Type 2 diabetes mellitus without complication (06/05/15) Benign prostatic hyperplasia with urinary obstruction (03/25/15) Peripheral vascular disease (2009) 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) Essential hypertension Mixed hyperlipidemia Surgical History History of coronary artery stent placement History of appendectomy History of orthopedic surgery (1965) Status post appendectomy (1956) Status post coronary artery bypass graft (1995) Family History Father Colon cancer Prostate enlargement Bladder cancer History of hip surgery Pneumonia History of prostate surgery Mother Diabetes mellitus Heart disease Hypertension High cholesterol Osteoporosis History of cataract surgery H/O heart bypass surgery Arthritis Grandfather Arthritis Prostate cancer Colon cancer Deaf Legally blind Grandmother Diabetes mellitus Hypertension Angina pectoris Heart disease Osteoporosis Social History marital status: number of children: 0 household members: spouse lives independently: Yes caregiver/support person: No housing: house pets and animals: Yes education level: other occupational status: other 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/jewish: None travel history: other leisure activities: other Smoking Status: Former smoker Tobacco: How many years used: 20 Smokeless tobacco user: other quit status: quit date established second hand exposure: No alcohol intake: current substance use type: does not use and marijuana Assessment & Plan Assessment & Plan narrative: 1. Acute congestive heart failure due to systolic dysfunction-continue with diuresis and accompanying electrolyte replacement. Patient seems to be improving. Can probably switch back to oral diuretics tomorrow 2. Hypokalemia-will replace parenterally and orally given his rhythm disturbance. Continue to monitor carefully. Plan to recheck later this afternoon and then depending on that result certainly in the morning and perhaps 1 more time in between 3. Non ST-elevation [place]-patient with ongoing troponin increase. Will discuss with his park guide if possible but continue to monitor for now until begins to trend down. Anticipate outpatient evaluation perhaps to include catheterization, although catheterization in 2019 demonstrated complex probably non interventional candidate lesions after his bypass surgery in 1995. Only lesion at that time amenable to treatment was in his LAD which was accomplished at the [facility] 4. RSV-continue symptomatic and conservative treatment 5. Diabetes-continue patient's usual meds monitor his blood sugar numbers etcetera. Continues on diabetic diet 6. Chronic renal failure-continue monitor electrolytes as above. Thus far renal function seems stable with diuretic therapy. Anticipate another 24-48 hours of hospitalization given the issues with his cardiac status and his congestive heart failure as well as the need for stability with his electrolytes etcetera Quality VTE Deep Vein Thrombosis/Pulmonary Embolism Present on Admission: No
[2023-03-08] MEDS: INSULIN LISPRO 100 UNIT/ML 3ML VIAL SUBCUT ×4 (08:14→20:10)
[2023-03-08] MEDS: POTASSIUM CHLORIDE 20 MEQ TAB 40 MEQ PO ×2 (08:15→17:38)
[2023-03-08] MEDS: FUROSEMIDE 80 MG in SODIUM CHLORIDE 0.9% 50 ML 116 MG IV (08:27)
[2023-03-08] MEDS: carvediloL 3.125 MG TABLET 6.25 MG PO ×2 (09:52→20:11)
[2023-03-08] MEDS: FOLIC ACID 1 MG TABLET 2 MG PO (09:52)
[2023-03-08] MEDS: ATORVASTATIN 20 MG TABLET 40 MG PO (09:52)
[2023-03-08] MEDS: OXYBUTYNIN 5 MG ER TAB 10 MG PO (09:53)
[2023-03-08] MEDS: ENOXAPARIN 40 MG/0.4 ML SYRINGE SUBCUT (09:53)
[2023-03-08] MEDS: MAGNESIUM OXIDE 400 MG TABLET PO ×2 (09:53→20:11)
[2023-03-08] MEDS: ISOSORBIDE MONONITRATE ER 30 MG TABLET PO (09:53)
[2023-03-08] MEDS: hydroCHLOROthiazide 25 MG TABLET 12.5 MG PO ×2 (09:53→20:11)
[2023-03-08] MEDS: FLUTICASONE 120 SPRAY/16 GM SPRAY.SUSP NASAL ×2 (09:53→20:10)
[2023-03-08] MEDS: TAMSULOSIN 0.4 MG CAPSULE PO ×2 (09:53→20:11)
[2023-03-08] MEDS: SERTRALINE 50 MG TABLET 150 MG PO (09:53)
[2023-03-08] MEDS: ASPIRIN EC 81 MG TABLET PO (09:53)
[2023-03-08] MEDS: PANTOPRAZOLE DR 40 MG TABLET PO ×2 (09:53→20:11)
--- NOTE | 2023-03-08 11:04 | CM.DANOTE ---
Initial DCP Assessment Note Pt is an 82 yo male, resident [facility], arrives with acute CHF r/t systolic dysfunction, RSV+, difficulty breathing. PCP: Matt Medina Payer: MAHENDRA/Claus Met w/patient and spouse at bedside to introduce self and role. Patient is indp in all aspects, drives. Spouse cooks most meals. Patient attends outpatient PT x2 weekly, no hx HH or SNF. Patient eager to return home today. No barriers identified at this time to patient's safe discharge home w/family to assist; close outpatient f/u recommended. CM team will plan to follow closely in case any DC needs or concerns arise. NASIM Watters Discharge Planning/Care Management CM Discharge Assessment Start: 03/08/23 10:18 Freq: Status: Active Protocol: Document 03/08/23 10:18 JAKOB (Rec: 03/08/23 11:04 JAKOB [id number]) Discharge Planning Assessment Assigned Meat Hostess NASIM Lafleur DPOA/Assigned Designee Name Vicky Barbour, spouse Contact Information [phone] Advance Directives? Yes Advance Directives on File Yes History Provided By Patient,Significant Other, Medical Record Prior Living Arrangements House Household Members spouse Type of transporation used prior to Drives own vehicle admit Independent with ADL's Yes Is patient alert and oriented? Yes Patient/Family Preference OP PT Therapy Comment None identified at this time, following closely. Likely home w/spouse and no needs from this [employer] Discharge Plan Home Transportation Arrangement Spouse Referrals Initiated None needed
[2023-03-08 13:17] LABS: BUN Creatinine Ratio 36.6 (6-22); Blood Urea Nitrogen 45 mg/dL (9-20); Calcium 9.5 mg/dL (8.4-10.2); Carbon Dioxide 28 mmol/L (22-32); Chloride 93 mmol/L (98-107); Estimated Glomerular Filt Rate 59 mL/min (>60); Glucose 235 mg/dL (80-110); HEMOLYSIS < 15 (0-50); Potassium 3.6 mmol/L (3.4-5.1); Sodium 135 mmol/L (137-145)
[2023-03-08 13:33] LABS: Troponin I 0.365 ng/mL (0.01-0.034)
[2023-03-08 14:57] LABS: Aspartate Aminotransferase 48 IU/L (17-59)
[2023-03-08] MEDS: FUROSEMIDE 40 MG/4 ML VIAL IV (20:10)
[2023-03-09] VITALS: BP 110/68; PULSE 82; RESP 17; TEMP 35.7; O2SAT 93
[2023-03-09 00:23] VITALS: O2SAT 95
[2023-03-09 04:00] VITALS: BP 107/68; PULSE 70; RESP 16; TEMP 35.6; O2SAT 94
[2023-03-09 05:03] LABS: BUN Creatinine Ratio 36.1 (6-22); Blood Urea Nitrogen 48 mg/dL (9-20); Calcium 9.4 mg/dL (8.4-10.2); Carbon Dioxide 31 mmol/L (22-32); Chloride 94 mmol/L (98-107); Estimated Glomerular Filt Rate 54 mL/min (>60); Glucose 223 mg/dL (80-110); HEMOLYSIS < 15 (0-50); Magnesium 1.7 mg/dL (1.6-2.3); Potassium 3.4 mmol/L (3.4-5.1); Sodium 134 mmol/L (137-145)
[2023-03-09 05:13] LABS: NT-proBNP (BNP-Adult 18+) 4660 pg/mL (<450)
[2023-03-09 05:23] LABS: Troponin I 0.239 ng/mL (0.01-0.034)
--- NOTE | 2023-03-09 06:04 | PC.NURSE ---
Patient resting most of the shift. Was up to chair, then bed, then chair again for comfort. Now in bed. Has been SBA to bathroom. Also has been A&O, calm and cooperative. Patient did have a 6 beat run of vtach while asleep, when woken he had no complaints and went back to sleep. Denied any pain or discomfort.
[2023-03-09 06:10] VITALS: O2SAT 97
[2023-03-09] MEDS: FLUTICASONE 120 SPRAY/16 GM SPRAY.SUSP NASAL (08:00)
[2023-03-09] MEDS: ENOXAPARIN 40 MG/0.4 ML SYRINGE SUBCUT (08:00)
[2023-03-09] MEDS: INSULIN LISPRO 100 UNIT/ML 3ML VIAL SUBCUT (08:01)
[2023-03-09] MEDS: MAGNESIUM OXIDE 400 MG TABLET PO (08:01)
[2023-03-09] MEDS: FOLIC ACID 1 MG TABLET 2 MG PO (08:01)
[2023-03-09] MEDS: carvediloL 3.125 MG TABLET 6.25 MG PO (08:01)
[2023-03-09] MEDS: hydroCHLOROthiazide 25 MG TABLET 12.5 MG PO (08:01)
[2023-03-09] MEDS: ASPIRIN EC 81 MG TABLET PO (08:01)
[2023-03-09] MEDS: ISOSORBIDE MONONITRATE ER 30 MG TABLET PO (08:01)
[2023-03-09] MEDS: POTASSIUM CHLORIDE 20 MEQ TAB 40 MEQ PO (08:01)
[2023-03-09] MEDS: SERTRALINE 50 MG TABLET 150 MG PO (08:11)
[2023-03-09] MEDS: OXYBUTYNIN 5 MG ER TAB 10 MG PO (08:11)
[2023-03-09] MEDS: PANTOPRAZOLE DR 40 MG TABLET PO (08:12)
[2023-03-09] MEDS: TAMSULOSIN 0.4 MG CAPSULE PO (08:12)
[2023-03-09] MEDS: FUROSEMIDE 40 MG/4 ML VIAL IV (08:12)
[2023-03-09 09:22] VITALS: BP 117/75; PULSE 83; RESP 18; TEMP 36.1; O2SAT 94
[2023-03-09 10:00] VITALS: O2SAT 97
--- NOTE | 2023-03-09 10:41 | PM.DS.1 ---
History of Present Illness History of Present Illness Date Patient Seen: 03/09/23 Time Patient Seen: 10:00 Chief complaint: difficulty breathing, upper resp Narrative: Patient anxious to get home. Feels well today. Breathing back to baseline, no leg swelling. Discharge Providers Provider Date of admission: 03/07/23 14:15 Discharge Date: 03/09/23 Primary care physician: Mtat Medina MD Discharge provider: Roxie Aranda MD Summary Hospital Course Discharge Diagnosis: Acute Congestive Heart Failure exacerbation Hypokalemia Hospital Course: Patient hospitalized for acute congestive heart failure exacerbation. Heart failure due to systolic dysfunction. Improved with IV diuresis and accompanying electrolyte replacement. Patient did have severe hypokalemia resulting in rhythm abnormalities. This improved with parenteral replacement. On day of discharge potassium was stable at 3.4. Recommend repeat labwork in 2 days as well as follow up appt with PCP early next week. There was concern for non ST-elevation [place] with troponin increases. This was discussed with cardiology - recommended to follow for downtrending which did occur on day of discharge. Anticipate outpatient evaluation perhaps to include catheterization, although catheterization in 2019 demonstrated complex probably non interventional candidate lesions after his bypass surgery in 1995. Only lesion at that time amenable to treatment was in his LAD which was accomplished at the [facility]. Patient was found to have RSV. Discussed ongoing conservative and symptom management at home. Status at Discharge Cognitive/behavioral status at discharge: at baseline, oriented Functional status at discharge: independent ambulation Overall status at discharge: patient is back to baseline Time Spent with Patient Time spent: Greater than 30 minutes Exam Vital Signs (past 8 hours): - 03/09/23 04:00 03/09/23 06:10 03/09/23 07:00 Temperature 96.1 F L Pulse Rate 70 Respiratory Rate 16 Blood Pressure 107/68 Pulse Oximetry 94 97 Oxygen Delivery Method Room Air Room Air Oxygen Flow Rate 0 03/09/23 09:22 03/09/23 10:00 Temperature 96.9 F L Pulse Rate 83 Respiratory Rate 18 Blood Pressure 117/75 Pulse Oximetry 94 97 Oxygen Delivery Method Room Air Oxygen Flow Rate Oxygen Delivery Method Room Air Oxygen Flow Rate 0 Const General: cooperative, healthy appearing, comfortable and well developed [facility] Head: normal to inspection Eyes General: appearance normal, both eyes and all related structures Neck Neck: normal visual inspection Chest Chest: normal inspection of the chest Resp Effort & Inspection: normal respiratory effort and able to speak in complete sentences Auscultation: clear to auscultation bilaterally Cardio Palpation: normal PMI Rate: regular rate Rhythm: regular rhythm Heart Sounds: S1 normal and S2 normal Neuro General: patient alert and patient oriented x3 Extrem General: normal to inspection Psych Appearance: grossly normal Mental Status: mental status grossly normal Speech and Movement: speech and movement normal Mood: congruent mood Affect: normal affect Attitude: cooperative Thought Process: normal Thought Content: normal Judgment: judgment good Objective Labs 03/07/23 08:44 03/09/23 04:40 Labs: Laboratory Results - last 24 hr 03/07/23 03/08/23 03/09/23 08:44 12:43 04:40 Sodium 136 L 135 L 134 L Potassium 3.4 3.6 3.4 Chloride 94 L 93 L 94 L Carbon Dioxide 24 28 31 BUN 42 H 45 H 48 H Creatinine 1.38 H 1.23 1.33 H Estimated GFR 51 L 59 L 54 L BUN/Creatinine Ratio 30.4 H 36.6 H 36.1 H Glucose 305 H 235 H 223 H Calcium 9.4 9.5 9.4 Magnesium 1.7 Total Bilirubin 1.5 H AST 48 ALT 24 Alkaline Phosphatase 126 Troponin I 0.134 H* 0.365 H* 0.239 H* NT-Pro-B Natriuret Pep 6300 H 4660 H Total Protein 8.3 H Albumin 4.8 Globulin 3.5 Albumin/Globulin Ratio 1.4 PFSH Medical History (Updated 03/08/23 @ 07:15 by Matt Medina MD) Nonsustained paroxysmal ventricular tachycardia Mild claudication Recurrent falls Spinal stenosis Tinnitus Diabetes HLD (hyperlipidemia) Depression Incomplete bladder emptying Hayfever (1999) Shoulder pain (2011) Fracture (195) Chronic back pain (1989) Hepatitis A (1963) Melanoma (1987) Gilbert's syndrome Femur fracture (1965) Primary osteoarthritis of both hips (08/30/15) Polymyalgia rheumatica (08/30/15) Type 2 diabetes mellitus without complication (06/05/15) Benign prostatic hyperplasia with urinary obstruction (03/25/15) Peripheral vascular disease (2009) 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) Essential hypertension Mixed hyperlipidemia Surgical History History of coronary artery stent placement History of appendectomy History of orthopedic surgery (1965) Status post appendectomy (1956) Status post coronary artery bypass graft (1995) Family History Father Colon cancer Prostate enlargement Bladder cancer History of hip surgery Pneumonia History of prostate surgery Mother Diabetes mellitus Heart disease Hypertension High cholesterol Osteoporosis History of cataract surgery H/O heart bypass surgery Arthritis Grandfather Arthritis Prostate cancer Colon cancer Deaf Legally blind Grandmother Diabetes mellitus Hypertension Angina pectoris Heart disease Osteoporosis Social History marital status: number of children: 0 household members: spouse lives independently: Yes caregiver/support person: No housing: house pets and animals: Yes education level: other occupational status: other 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/yazidism: None travel history: other leisure activities: other Smoking Status: Former smoker Tobacco: How many years used: 20 Smokeless tobacco user: other quit status: quit date established second hand exposure: No alcohol intake: current substance use type: does not use and marijuana Discharge Assessment & Plan Assessment and Plan Assessment: Heart failure exacerbation with electrolyte abnormalities. Plan of Treatment: 1. Acute congestive heart failure. Improved with diuresis. 2. Hypokalemia. Resolved. Discharge with oral potassium. 3. Non ST-elevation [place]. Downtrending troponin. Anticipate outpatient evaluation perhaps to include catheterization, although catheterization in 2019 demonstrated complex probably non interventional candidate lesions after his bypass surgery in 1995. Only lesion at that time amenable to treatment was in his LAD which was accomplished at the [facility] 4. RSV-continue symptomatic and conservative treatment 5. Diabetes - No changes. 6. Chronic renal failure-continue monitor electrolytes as above. Small bump in creatinine on day of discharge. Will order CMP for 03/11. Discharge Plan Discharge Plan Patient Disposition: Home Discharge orders & Medications Prescriptions: New magnesium oxide 400 mg (241.3 mg magnesium) Tablet 400 mg PO BID Qty: 180 0RF potassium chloride [Klor-Con M20] 20 mEq Tablet,Er Particles/Crystals 20 meq PO BIDWM Qty: 180 0RF Continued (DME) blood-glucose meter Misc See Rx Instructions .ROUTE .MEDSUPPLY Qty: 1 0RF Rx Instructions: Use to test blood glucose DAILY (DME) Blood Glucose Test Strip See Rx Instructions .ROUTE .MEDSUPPLY Qty: 100 1RF Rx Instructions: Use to test blood glucose ONCE daily. (DME) lancets [BD Ultra Fine Lancets] 33 gauge misc See Rx Instructions .ROUTE .MEDSUPPLY Qty: 100 1RF Rx Instructions: Use to test blood glucose ONCE daily pantoprazole 40 mg tablet,delayed release (DR/EC) 40 mg PO BID Qty: 180 3RF glipizide 10 mg tablet extended release 24hr 10 mg PO BID Qty: 180 3RF mirabegron 50 mg tablet extended release 24 hr 50 mg PO DAILY Qty: 90 3RF famotidine 20 mg tablet 20 mg PO BID Qty: 180 3RF hydrochlorothiazide 12.5 mg capsule 12.5 mg PO BID Qty: 180 3RF aspirin [Adult Low Dose Aspirin] 81 mg tablet,delayed release (DR/EC) 81 mg PO DAILY (DME) Disabled Parking See Rx Instructions .ROUTE .MEDSUPPLY Qty: 1 0RF Rx Instructions: Patient qualifies for disabled parking as per the attached form. isosorbide dinitrate 20 mg tablet 20 mg PO BID tamsulosin [Flomax] 0.4 mg capsule 0.4 mg PO BID torsemide 20 mg tablet 20 mg PO DAILY acetaminophen 500 mg capsule 500 mg PO BID PRN (Reason: Pain, Mild) folic acid 1 mg tablet 2 mg PO DAILY carvedilol 3.125 mg tablet 6.25 mg PO BID Qty: 180 3RF Rx Instructions: must administer with a meal/food rosuvastatin 20 mg Tablet 20 mg PO QPM nystatin 100,000 unit/gram powder 1 applic topical BID Qty: 30 0RF Changed sertraline 100 mg tablet 150 mg PO DAILY Qty: 90 3RF Follow up/Referrals: Matt Medina MD [Primary Care Provider] - 2 Weeks (keep 03/26/23 appt) Discharge Health Status Multidrug resistant organism: No MDRO Diet/Activity/Treatments Diet: Carb-consistent/Diabetic Visit Report/Discharge Packet Stand Alone Forms: Congestive Heart Failure, Patient Portal/API, Stroke Signs & Symptoms Discharge Data Primary Care Provider: Matt Medina Discharges patient from system. Discharge Date/Time: 03/09/23 10:43 Quality VTE Deep Vein Thrombosis/Pulmonary Embolism Present on Admission: No
--- NOTE | 2023-03-09 12:27 | CM.DPNOTE ---
DC Note Discharge home w/spouse, back to functional baseline. No CM team needs identified. Close outpatient follow up recommended. JAKOB
== END 2023-03-09 10:43 | disposition home or self-care (01) | DRG 280 ==
LOC: ED 14:16 → AC 14:16
PROVIDERS: Admitting Provider Internal Medicine; Emergency Provider Emergency Medicine; Family Provider Internal Medicine; PCP Internal Medicine; Referring Provider Emergency Medicine; Visit Provider Internal Medicine
DX: I13.0 Hypertensive heart and chronic kidney disease with heart failure and stage 1 through stage 4 chronic kidney disease, or unspecified chronic kidney disease (principal); I50.21 Acute systolic (congestive) heart failure; I21.4 Non-ST elevation (NSTEMI) myocardial infarction; B97.4 Respiratory syncytial virus as the cause of diseases classified elsewhere; I25.10 Atherosclerotic heart disease of native coronary artery without angina pectoris; F32.A Depression, unspecified; E87.6 Hypokalemia; E11.22 Type 2 diabetes mellitus with diabetic chronic kidney disease; N18.9 Chronic kidney disease, unspecified; N40.0 Benign prostatic hyperplasia without lower urinary tract symptoms; E78.5 Hyperlipidemia, unspecified; Z87.891 Personal history of nicotine dependence; Z79.84 Long term (current) use of oral hypoglycemic drugs
CPT/HCPCS: 36415; 71045; 80048; 80053; 82550; 82962; 83605; 83735; 83880; 84484; 85025; 85610; 87633; 93005; 96374; 96375; 99223; 99233; 99238; 99284; 99285; C8929; J1650; J1815; J1940; Q9957

== ENCOUNTER → 2023-03-26 12:15 | Outpatient (CLI) | payer MEDICARE, OTHER, SELFPAY ==
[2023-03-07 15:13] VITALS: BMI 287.9
[2023-03-26 14:40] LABS: BUN Creatinine Ratio 32.3 (6-22); Blood Urea Nitrogen 40 mg/dL (9-20); Carbon Dioxide 24 mmol/L (22-32); Chloride 99 mmol/L (98-107); Estimated Glomerular Filt Rate 58 mL/min (>60); Glucose 182 mg/dL (80-110); HEMOLYSIS 25 (0-50); Magnesium 1.9 mg/dL (1.6-2.3); Sodium 135 mmol/L (137-145)
[2023-03-26 14:48] LABS: NT-proBNP (BNP-Adult 18+) 1690 pg/mL (<450)
== END ==
PROVIDERS: Family Provider Internal Medicine; PCP Internal Medicine; Referring Provider Internal Medicine; Visit Provider Internal Medicine
DX: I50.22 Chronic systolic (congestive) heart failure (principal); I10 Essential (primary) hypertension
CPT/HCPCS: 36415; 80048; 83735; 83880

== ENCOUNTER → 2023-04-11 15:49 | Outpatient (CLI) | payer MEDICARE, OTHER, SELFPAY ==
[2023-03-07 15:13] VITALS: BMI 287.9
[2023-04-11 18:29] LABS: BUN Creatinine Ratio 20.7 (6-22); Blood Urea Nitrogen 42 mg/dL (9-20); Calcium 9.1 mg/dL (8.4-10.2); Carbon Dioxide 24 mmol/L (22-32); Chloride 102 mmol/L (98-107); Estimated Glomerular Filt Rate 32 mL/min (>60); Glucose 115 mg/dL (80-110); HEMOLYSIS < 15 (0-50); Potassium 4.9 mmol/L (3.4-5.1); Sodium 138 mmol/L (137-145)
[2023-04-11 18:31] LABS: NT-proBNP (BNP-Adult 18+) 1710 pg/mL (<450)
== END ==
LOC: LAB 15:51
PROVIDERS: Family Provider Internal Medicine; PCP Internal Medicine; Referring Provider Internal Medicine Cardiovascular Disease; Visit Provider Internal Medicine Cardiovascular Disease
DX: I42.9 Cardiomyopathy, unspecified (principal); R42 Dizziness and giddiness; E78.5 Hyperlipidemia, unspecified; I25.10 Atherosclerotic heart disease of native coronary artery without angina pectoris; I73.9 Peripheral vascular disease, unspecified; I10 Essential (primary) hypertension; E11.9 Type 2 diabetes mellitus without complications
CPT/HCPCS: 36415; 80048; 83880

== ENCOUNTER → 2023-04-26 11:53 | Outpatient (CLI) | payer MEDICARE, OTHER, SELFPAY ==
[2023-04-23 11:56] VITALS: BMI 287.9
[2023-04-26 12:54] LABS: BUN Creatinine Ratio 16.2 (6-22); Blood Urea Nitrogen 24 mg/dL (9-20); Carbon Dioxide 22 mmol/L (22-32); Chloride 105 mmol/L (98-107); Estimated Glomerular Filt Rate 47 mL/min (>60); Glucose 130 mg/dL (80-110); Potassium 5.3 mmol/L (3.4-5.1); Sodium 138 mmol/L (137-145)
[2023-04-26 13:04] LABS: HEMOLYSIS < 15 (0-50); NT-proBNP (BNP-Adult 18+) 2360 pg/mL (<450)
== END ==
PROVIDERS: Family Provider Internal Medicine; PCP Internal Medicine; Referring Provider Internal Medicine Cardiovascular Disease; Visit Provider Internal Medicine Cardiovascular Disease
DX: I42.9 Cardiomyopathy, unspecified (principal); R06.09 Other forms of dyspnea; I47.20 Ventricular tachycardia, unspecified; R06.00 Dyspnea, unspecified; I20.9 Angina pectoris, unspecified; E11.9 Type 2 diabetes mellitus without complications; I73.9 Peripheral vascular disease, unspecified; I10 Essential (primary) hypertension
CPT/HCPCS: 36415; 80048; 83880

== ENCOUNTER → 2023-04-30 13:42 | Outpatient (CLI) | payer MEDICARE, OTHER, SELFPAY ==
[2023-04-23 11:56] VITALS: BMI 287.9
[2023-04-30 15:20] LABS: HEMOLYSIS < 15 (0-50)
[2023-04-30 15:22] LABS: Potassium 5.4 mmol/L (3.4-5.1)
== END ==
LOC: LAB 13:44
PROVIDERS: Family Provider Internal Medicine; PCP Internal Medicine; Referring Provider Physician Assistant; Visit Provider Physician Assistant
DX: E87.5 Hyperkalemia (principal)
CPT/HCPCS: 36415; 84132

== ENCOUNTER → 2023-05-24 12:10 | Outpatient (CLI) | payer MEDICARE, OTHER, SELFPAY ==
[2023-04-23 11:56] VITALS: BMI 287.9
--- NOTE | 2023-05-24 12:13 | DI.US.S_ITS ---
PROCEDURE: US PERIPH VENOUS LOW EXTREM LT INDICATIONS: ANKLE EDEMA TECHNIQUE: Real-time imaging, as well as color and pulse Doppler interrogation, were performed of the lower extremity deep veins from the inguinal ligament to the popliteal fossa, with documentation of the visualized calf veins. COMPARISON: None. FINDINGS: The common femoral, femoral, popliteal, and the visualized calf veins are normally compressible, and free of intraluminal thrombus. Color and pulse Doppler demonstrate normal phasic intraluminal flow. There is normal augmentation response to distal compression maneuver. IMPRESSION: No findings of lower extremity deep venous thrombosis. Dictated by: Lolita Tony M.D. on 05/24/2023 at 13:32 Approved by: Lolita Tony M.D. on 05/24/2023 at 14:35
[2023-05-24 13:03] LABS: Add Manual Diff / Slide Review NO; Basophils Absolute Auto 100 /uL (0-100); Basophils Percent Auto 0.9 % (0-2); Eosinophils Absolute Auto 200 /uL (0-450); Eosinophils Percent Auto 2.6 % (2-4); Hematocrit 32.1 % (41-53); Hemoglobin 10.4 g/dL (13.5-17.5); Lymphocytes Absolute Auto 1400 /uL (1100-4500); Lymphocytes Percent Auto 16.6 % (25-40); Mean Corpuscular HGB Conc 32.5 % (30-36); Mean Corpuscular Hemoglobin 26.4 PG (26-34); Mean Corpuscular Volume 81.2 fL (80-100); Monocytes Absolute Auto 800 /uL (0-900); Monocytes Percent Auto 10.4 % (3-14); Neutrophils Absolute Auto 5700 /uL (1500-7000); Neutrophils Percent Auto 69.5 % (50-75); Platelet Count 215 X10^3/uL (150-400); Red Blood Cell Count 3.95 X10^6/uL (4.5-5.9); Red Cell Distribution Width 22.3 % (11.6-14.8); White Blood Cell Count 8.1 X10^3/uL (4.5-11.0)
[2023-05-24 13:14] LABS: Hemoglobin A1C% w Est Avg Glu 6.5 % (4.0-6.0)
[2023-05-24 13:30] LABS: Anisocytosis 1+; Microcytosis 1+
[2023-05-24 13:33] LABS: HEMOLYSIS < 15 (0-50); Iron 46 ug/dL (49-181)
[2023-05-24 13:38] LABS: Alanine Aminotransferase 11 IU/L (<50); Albumin 4.4 g/dL (3.5-5.0); Albumin Globulin Ratio 1.4 (1.0-2.8); Alkaline Phosphatase 91 U/L (38-126); Aspartate Aminotransferase 23 IU/L (17-59); BUN Creatinine Ratio 17.2 (6-22); Bilirubin Total 1.2 mg/dL (0.2-1.3); Blood Urea Nitrogen 29 mg/dL (9-20); Calcium 9.2 mg/dL (8.4-10.2); Carbon Dioxide 29 mmol/L (22-32); Chloride 105 mmol/L (98-107); Estimated Glomerular Filt Rate 40 mL/min (>60); Globulin 3.1 g/dL (1.7-4.1); Glucose 109 mg/dL (80-110); HEMOLYSIS < 15 (0-50); Magnesium 2.1 mg/dL (1.6-2.3); Potassium 4.5 mmol/L (3.4-5.1); Sodium 141 mmol/L (137-145); Total Protein 7.5 g/dL (6.3-8.2)
[2023-05-24 13:47] LABS: Percent Iron Saturation 11 % (20-50); Total Iron Binding Capacity 406 ug/dL (261-462); Transferrin 340 mg/dL (206-381)
== END ==
PROVIDERS: Family Provider Internal Medicine; PCP Internal Medicine; Referring Provider Internal Medicine; Visit Provider Internal Medicine
DX: I82.409 Acute embolism and thrombosis of unspecified deep veins of unspecified lower extremity (principal); E11.65 Type 2 diabetes mellitus with hyperglycemia; I10 Essential (primary) hypertension; I34.0 Nonrheumatic mitral (valve) insufficiency; I42.9 Cardiomyopathy, unspecified; E78.2 Mixed hyperlipidemia
CPT/HCPCS: 36415; 80053; 83036; 83540; 83550; 83735; 85025; 93971

== ENCOUNTER → 2023-06-20 14:50 | Outpatient (CLI) | payer MEDICARE, OTHER, SELFPAY ==
[2023-04-23 11:56] VITALS: BMI 287.9
[2023-06-20 16:21] LABS: BUN Creatinine Ratio 24.5 (6-22); Blood Urea Nitrogen 37 mg/dL (9-20); Calcium 9.4 mg/dL (8.4-10.2); Carbon Dioxide 25 mmol/L (22-32); Chloride 104 mmol/L (98-107); Estimated Glomerular Filt Rate 46 mL/min (>60); Glucose 167 mg/dL (80-110); HEMOLYSIS < 15 (0-50); Potassium 4.3 mmol/L (3.4-5.1); Sodium 138 mmol/L (137-145)
[2023-06-20 16:28] LABS: NT-proBNP (BNP-Adult 18+) 1420 pg/mL (<450)
== END ==
PROVIDERS: Family Provider Internal Medicine; PCP Internal Medicine; Referring Provider Internal Medicine Cardiovascular Disease; Visit Provider Internal Medicine Cardiovascular Disease
DX: I50.22 Chronic systolic (congestive) heart failure (principal)
CPT/HCPCS: 36415; 80048; 83880

== ENCOUNTER → 2023-10-03 11:33 | Outpatient (CLI) | payer MEDICARE, OTHER, SELFPAY ==
[2023-04-23 11:56] VITALS: BMI 287.9
[2023-10-03 13:01] LABS: BUN Creatinine Ratio 22.9 (6-22); Blood Urea Nitrogen 30 mg/dL (9-20); Calcium 9.4 mg/dL (8.4-10.2); Carbon Dioxide 24 mmol/L (22-32); Chloride 103 mmol/L (98-107); Estimated Glomerular Filt Rate 54 mL/min (>60); Glucose 78 mg/dL (80-110); HEMOLYSIS 20 (0-50); Magnesium 2.4 mg/dL (1.6-2.3); Potassium 4.1 mmol/L (3.4-5.1); Sodium 138 mmol/L (137-145)
== END ==
PROVIDERS: Family Provider Internal Medicine; PCP Internal Medicine; Referring Provider Internal Medicine; Visit Provider Internal Medicine
DX: I10 Essential (primary) hypertension (principal); I42.9 Cardiomyopathy, unspecified; E78.2 Mixed hyperlipidemia
CPT/HCPCS: 36415; 80048; 83735

== ENCOUNTER → 2023-11-07 13:20 | Outpatient (CLI) | payer MEDICARE, OTHER, SELFPAY ==
[2023-04-23 11:56] VITALS: BMI 287.9
== END ==
PROVIDERS: Family Provider Internal Medicine; PCP Internal Medicine; Visit Provider Urology
DX: N40.1 Benign prostatic hyperplasia with lower urinary tract symptoms (principal); N32.81 Overactive bladder; R39.9 Unspecified symptoms and signs involving the genitourinary system
CPT/HCPCS: 81002; 87077; 87086; 87186; 99214

== ENCOUNTER → 2023-12-20 13:33 | Outpatient (CLI) | payer MEDICARE, OTHER, SELFPAY ==
[2023-04-23 11:56] VITALS: BMI 287.9
[2023-12-20 14:36] LABS: Add Manual Diff / Slide Review NO; Basophils Absolute Auto 100 /uL (0-100); Basophils Percent Auto 1.2 % (0-2); Eosinophils Absolute Auto 200 /uL (0-450); Eosinophils Percent Auto 2.9 % (2-4); Hematocrit 35.8 % (41-53); Hemoglobin 11.3 g/dL (13.5-17.5); Lymphocytes Absolute Auto 1000 /uL (1100-4500); Lymphocytes Percent Auto 14.2 % (25-40); Mean Corpuscular HGB Conc 31.4 % (30-36); Mean Corpuscular Volume 79.6 fL (80-100); Monocytes Absolute Auto 600 /uL (0-900); Monocytes Percent Auto 8.6 % (3-14); Neutrophils Absolute Auto 5300 /uL (1500-7000); Neutrophils Percent Auto 73.1 % (50-75); Platelet Count 235 X10^3/uL (150-400); Red Cell Distribution Width 17.9 % (11.6-14.8); White Blood Cell Count 7.3 X10^3/uL (4.5-11.0)
[2023-12-20 14:46] LABS: Hemoglobin A1C% w Est Avg Glu 7.3 % (4.0-6.0)
[2023-12-20 15:09] LABS: Alanine Aminotransferase 12 IU/L (<50); Albumin 4.7 g/dL (3.5-5.0); Albumin Globulin Ratio 1.7 (1.0-2.8); Alkaline Phosphatase 152 U/L (38-126); Aspartate Aminotransferase 23 IU/L (17-59); Blood Urea Nitrogen 28 mg/dL (9-20); Calcium 9.6 mg/dL (8.4-10.2); Carbon Dioxide 24 mmol/L (22-32); Chloride 103 mmol/L (98-107); Estimated Glomerular Filt Rate 47 mL/min (>60); Globulin 2.7 g/dL (1.7-4.1); Glucose 127 mg/dL (80-110); HEMOLYSIS < 15 (0-50); Magnesium 2.4 mg/dL (1.6-2.3); Potassium 4.5 mmol/L (3.4-5.1); Sodium 140 mmol/L (137-145); Total Protein 7.4 g/dL (6.3-8.2)
[2023-12-20 15:17] LABS: NT-proBNP (BNP-Adult 18+) 1730 pg/mL (<450)
[2023-12-20 15:34] LABS: TSH w/ Reflex to FT4 3.51 uIU/mL (0.47-4.68)
== END ==
LOC: LAB 13:35
PROVIDERS: Family Provider Internal Medicine; PCP Internal Medicine; Referring Provider Internal Medicine; Visit Provider Physician Assistant
DX: I50.22 Chronic systolic (congestive) heart failure (principal); E11.9 Type 2 diabetes mellitus without complications; E78.2 Mixed hyperlipidemia; I11.0 Hypertensive heart disease with heart failure
CPT/HCPCS: 36415; 80053; 83036; 83735; 83880; 84443; 85025

== ENCOUNTER → 2024-02-05 14:16 | Outpatient (CLI) | payer MEDICARE, OTHER, SELFPAY ==
[2023-04-23 11:56] VITALS: BMI 287.9
[2024-02-05 15:30] LABS: BUN Creatinine Ratio 21.6 (6-22); Blood Urea Nitrogen 32 mg/dL (9-20); Calcium 8.9 mg/dL (8.4-10.2); Carbon Dioxide 24 mmol/L (22-32); Chloride 104 mmol/L (98-107); Estimated Glomerular Filt Rate 47 mL/min (>60); Glucose 157 mg/dL (80-110); HEMOLYSIS < 15 (0-50); Potassium 4.4 mmol/L (3.4-5.1); Sodium 135 mmol/L (137-145)
[2024-02-05 15:37] LABS: NT-proBNP (BNP-Adult 18+) 1940 pg/mL (<450)
== END ==
PROVIDERS: Family Provider Internal Medicine; PCP Internal Medicine; Referring Provider Internal Medicine Cardiovascular Disease; Visit Provider Internal Medicine Cardiovascular Disease
DX: I50.23 Acute on chronic systolic (congestive) heart failure (principal)
CPT/HCPCS: 36415; 80048; 83880

== ENCOUNTER → 2024-02-21 13:42 | Outpatient (CLI) | payer MEDICARE, OTHER, SELFPAY ==
[2023-04-23 11:56] VITALS: BMI 287.9
[2024-02-21 17:42] LABS: BUN Creatinine Ratio 24.1 (6-22); Blood Urea Nitrogen 38 mg/dL (9-20); Calcium 9.2 mg/dL (8.4-10.2); Carbon Dioxide 20 mmol/L (22-32); Chloride 108 mmol/L (98-107); Estimated Glomerular Filt Rate 43 mL/min (>60); Glucose 147 mg/dL (80-110); HEMOLYSIS < 15 (0-50); Sodium 136 mmol/L (137-145)
[2024-02-21 17:45] LABS: NT-proBNP (BNP-Adult 18+) 1820 pg/mL (<450)
[2024-02-21 17:52] LABS: Potassium 5.5 mmol/L (3.4-5.1)
== END ==
PROVIDERS: Family Provider Internal Medicine; PCP Internal Medicine; Referring Provider Internal Medicine Cardiovascular Disease; Visit Provider Internal Medicine Cardiovascular Disease
DX: I50.23 Acute on chronic systolic (congestive) heart failure (principal); Z51.89 Encounter for other specified aftercare
CPT/HCPCS: 36415; 80048; 83880

== ENCOUNTER 2024-04-14 13:00 | Outpatient (RCR) | payer MEDICARE, OTHER, SELFPAY ==
[2023-04-23 11:56] VITALS: BMI 287.9
--- NOTE | 2024-04-09 16:24 | PT.OIE ---
Current Diagnoses Other specified joint disorders, right hip (04/08/24) Overactive bladder (04/08/24) Pelvic muscle wasting (04/08/24) Nocturia (04/08/24) Past Medical History (Last Reviewed 03/11/24 @ 13:47 by Anjum Noel DO) Benign prostatic hyperplasia with urinary obstruction (03/25/15) Cardiomyopathy Chronic back pain (1989) Chronic HFrEF (heart failure with reduced ejection fraction) Chronic renal failure, stage 3a Coronary artery disease involving [place] coronary artery of [place] heart without angina pectoris (1995) Depression Diabetes Essential hypertension Femur fracture (1965) Fracture (1951) Gilbert's syndrome Hayfever (1999) Hepatitis A (1963) HLD (hyperlipidemia) Incomplete bladder emptying Melanoma (1987) Mild claudication Mitral valve insufficiency Mixed hyperlipidemia Nonsustained paroxysmal ventricular tachycardia Overactive bladder Peripheral vascular disease (2009) Polymyalgia rheumatica (08/30/15) Post laminectomy syndrome Primary osteoarthritis of both hips (08/30/15) Recurrent falls Shoulder pain (2011) Spinal stenosis Tinnitus Type 2 diabetes mellitus without complication (06/05/15) Urinary incontinence Past Surgical History (Last Reviewed 03/11/24 @ 13:47 by Anjum Noel DO) History of appendectomy History of coronary artery stent placement History of orthopedic surgery (1965) Status post appendectomy (1956) Status post coronary artery bypass graft (1995) Visit Care Team Role Provider Type Matt Medina MD Family Provider Physician Primary Care Provider Specialty: Internal Medicine Address: [address] [place] [address] Email: [email or web address] Anjum Noel DO Attending Provider Physician Referring Provider Specialty: Urology Address: [address] [place] [address], [facility] Fax: Email: Physical Therapy Initial Evaluation PT-OP-A Visit Information Start: 04/08/24 11:30 Freq: Status: Active Protocol: Document 04/08/24 11:30 [facility] (Rec: 04/08/24 12:27 [facility] [id number]) Out-Patient Physical Therapy Visit Information Visit Information Visit Type Initial Evaluation Visit Start Time 11:30 Visit Stop Time 12:15 Visit Number 1 Evaluation Information Evaluation Date 04/08/24 PT-OP-B Current Condition Start: 04/08/24 11:30 Freq: Status: Active Protocol: Document 04/08/24 11:30 [facility] (Rec: 04/08/24 12:13 [facility] [id number]) Current Condition History of Current Condition Onset Date worsening in the last year Current Complaints urinary urgency, frequency, urge incontinence, nocturia History of Current Condition over a year his symptoms have been progressing, in the past 6 months he has had to switch to wearing depends and his frequency has increased. Certain times of the days it can be every half hour he is going to the bathroom. If he is doing something like driving his car to [place] he can avoid the urge but at times he will feel the urge. He does carry a bottle in the car incase he needs to use it . Usually at home he voids every hour. He notes that sometimes he will leak on the way to the bathroom. Some times he has to chage his depends 2 times per day. He does use a walker in the house . He has a history of type II diabetes with peripheral neruopathy and he uses topical ointments on his feet and shins as the pain prevents him from sleeping. , he works on trying to avoid sugar, he has had bouts of dizziness and falling and has been hospitalized a few times for falls. He lives with his at home. He has undergone three spinal surgeries in the past year. Laminectomy of L5-SI and he notes there was a cyst growing by the spinal cord. A second surgery was performed to remove the cyst. A third time he went back in to remove a second cyst and this time a fusion at L4-5. He still has back pain on his left side but the worse pain of all is his right hip joint is bone on bone. He wears pain patches on the right side every day. Fluids: He starts with a 10 oz glass of water with his tynenol and then a hour later he has a second glass. In that time he has 1-2 cups of coffee. he eats breakfast which is mostly two eggs and hashbrown potatoes, during the day he drinks non sugar beverages including a non sugar fruit juice and coke zero he uses the 6 oz cans and will drink approx 3 of those. A trigger for him is walking into the kitchen to wash dishes and the running water causes a urge. Treatment Goals Patient/Caregiver Goals Kris's goals include reducing urgency and frequency , nocturia and decreasing urinary leakage PT-OP-C Subjective Start: 04/08/24 11:30 Freq: Status: Active Protocol: Document 04/08/24 11:30 [facility] (Rec: 04/09/24 16:00 [facility] [id number]) Patient Questionnaires Pelvic Pain and Urgency/Frequency Patient Symptom Scale Pelvic Pain Score 7 OP-PT Pain Assessment Pain Assessment Grid Paper Pain Assessment Grid Completed Yes Location low back Pain Location Details low back Intensity 4 Scale Used Numeric (0 - 10) Right Hip Pain Location Details right lateral hip Intensity 6 Scale Used Numeric (0 - 10) PT-OP-F Manual Assessment Start: 04/08/24 11:30 Freq: Status: Active Protocol: Document 04/08/24 11:30 [facility] (Rec: 04/09/24 16:00 [facility] [id number]) Manual Assessments Soft Tissue Assessment Soft Tissue Mobility Assessment muscle guarding of the lumbar paraspinals and gluteals, tightness of the ITB and right quad PT-OP-I Pelvic Floor Start: 04/08/24 11:30 Freq: Status: Active Protocol: Document 04/08/24 11:30 [facility] (Rec: 04/09/24 16:00 [facility] [id number]) Pelvic Floor Assessment Urine Urinary Symptoms Urge Sensation,Incomplete Emptying Other Urinary Symptoms urinary leakage 3 times per day Leakage Size Medium Leakage Cause Urge Other Leakage Causes walking to the toilet or water running Leaks Per Day 3 Voiding Frequency every hour during the day Nocturia 2 Urine Pad Type Depends Contraction Ability Voluntary Contraction Weak Voluntary Relaxation Weak PT-OP-M Strength Start: 04/08/24 11:30 Freq: Status: Active Protocol: Document 04/08/24 11:30 [facility] (Rec: 04/09/24 16:00 [facility] [id number]) Trunk Strength Trunk Manual Muscle Testing Testing Position Sitting Flexion 2+ Poor+ Core Stabilization decreased core stabilization Hip Strength Hip Manual Muscle Testing Right Flexion (L2) 3 Fair Extension (S1) 3 Fair PT-OP-Q Treatments Start: 04/08/24 11:30 Freq: Status: Active Protocol: Document 04/08/24 11:30 [facility] (Rec: 04/08/24 12:27 [facility] [id number]) Self-Care/Home Management Treatment Education Patient Education Home Exercise Program Other Education time was spent reviewing bladder irritants, pt was educated on the urge deference technique with pelvic floor quick contractions. He was given a bladder diary and educated on filling it out for home. PT-OP-T Assessment and Plan Start: 04/08/24 11:30 Freq: Status: Active Protocol: Document 04/08/24 11:30 [facility] (Rec: 04/09/24 16:08 [facility] [id number]) Physical Therapy Assessment Rehab Potential Rehabilitation Potential Good Evaluation Complexity Number of Personal Factors/Comorbidities 3 or More Number of Body Systems Impaired 4 or More Clinical Presentation at Evaluation Evolving Impairments Impairments Activity Tolerance,Edema,Soft Tissue Mobility,Strength Other Impairments urinary urgency, frequency, and nocturia Goals 3 Impairment Decreased endurance of the pelvic floor Short Term Goal (STG) Kris is able to sustain a pelvic floor contraction in supine x 10 seconds STG Duration 5 weeks 2 Impairment LE and core weakness making transers in and out of bed and from sitting to standing difficult Short Term Goal (STG) Kris is educated on a home program for core strengthening and LE strengthening STG Duration 5 weeks Site Engineer Goal (LTG) Kris is able to perform sit -stand with improved mobility with core engagement LTG Duration 8 weeks + 1 Impairment urinary urgency, frequency, urge incontinence and nocturia Short Term Goal (STG) Kris is educated on bladder irritants, given a bladder diary, and instructed on the urge deference technique STG Duration 4 weeks Fpc Goal (LTG) Kris reports a overall reduction in urinary urgency, frequency, incontinence and nocturia LTG Duration 8 + weeks Assessment Summary Assessment Kris is a 83 year old male referred to PT with chief complaints of urinary urgency and frequency, urge incontinence and nocturia. Kris reports his symptoms have progressed in this past year. He notes he has undergone 3 spinal surgeries in the past year and it has taken a lot to recover from these. He notes worsening symptoms following spinal surgery. He is dealing with chronic right hip pain and peripheral neuropathy in B due to type II diabetes. Kris reports it is difficult getting up out of a chair with a urge and he does at times leak on the way to the bathroom. He uses a walker at home for assistive device. Kris presents with general weakness and difficulty with functional mobility. He presets with right sided hip weakness and core weakness. Bladder irritants were reviewed with Kris today and he was given a bladder diary for home. He was educated in the urge deference technique and bladder retraining. He is a good candidate for pelvic floor PT and pelvic floor endurance training. General strength training will also be addressed to make it easier to transfer sitting to standing when he needs to use the bathroom Physical Therapy Plan Frequency and Duration Frequency of Treatment 1x/Week Duration of treatment (weeks) 8 Plan of Care Start Date 04/08/24 Plan of Care End Date 06/03/24 Therapeutic Interventions Therapeutic Interventions Home Exercise Program, Neuromuscular Re-education, Patient/Caregiver Education, Self-Care/Home Management, Therapeutic Exercises Next Visit Focus/Plan Next Note Type Treatment Note Next Visit Plan review bladder diary with Kris and go over urge deference technique. If he has been able to decrease intensity of urges and is doing better making it to the bathroom then we will work on bladder retraining increaseing time between voids, begin pelvic floor endurance training.
--- NOTE | 2024-04-14 14:36 | PT.OTN ---
Current Diagnoses Other specified joint disorders, right hip (04/14/24) Overactive bladder (04/14/24) Pelvic muscle wasting (04/14/24) Nocturia (04/14/24) Physical Therapy Treatment Note PT-OP-A Visit Information Start: 04/08/24 11:30 Freq: Status: Active Protocol: Document 04/14/24 13:01 [facility] (Rec: 04/14/24 13:45 [facility] [id number]) Out-Patient Physical Therapy Visit Information Visit Information Visit Type Treatment Note Visit Start Time 13:00 Visit Stop Time 13:45 Visit Number 2 PT-OP-B Current Condition Start: 04/08/24 11:30 Freq: Status: Active Protocol: Document 04/08/24 11:30 [facility] (Rec: 04/08/24 12:13 [facility] [id number]) Current Condition History of Current Condition Onset Date worsening in the last year Current Complaints urinary urgency, frequency, urge incontinence, nocturia History of Current Condition over a year his symptoms have been progressing, in the past 6 monts he has had to switch to wearing depends and his frequency has increased. Certain times of the days it can be every half hour he is going to the bathroom. If he is doing something like driving his car to [place] he can avoid the urge but at times he will feel the urge. He does carry a bottle in the car incase he needs to use it . Usually at home he voids every hour. He notes that sometimes he will leak on the way to the bathroom. Some times he has to chage his depends 2 times per day. He does use a walker in the house . He has a history of type II diabetes with peripheral neruopathy and he uses topical ointments on his feet and shins as the pain prevents him from sleeping. , he works on trying to avoid sugar, he has had bouts of dizzyness and falling and has been hospitalized a few times for falls. He lives with his at home. He has undergone three spinal surgeries in the past year. Laminectomy of L5-SI and he notes there was a cyst growing by the spinal cord. A second surgery was performed to remove the cyst. A third time he went back in to remove a second cyst and this time a fusion at L4-5. He still has back pain on his left side but the worse pain of all is his right hip joint is bone on bone. He wears pain patches on the right side every day. Fluids: He starts with a 10 oz glass of water with his tynenol and then a hour later he has a second glass. In that time he has 1-2 cups of coffee. he eats breakfast which is mostly two eggs and hashbrown potatoes, during the day he drinks non sugar beverages including a non surgar fruit juice and coke zero he uses the 6 oz cans and will drink approx 3 of those. A trigger for him is walking into the kitchen to wash dishes and the running water causes a urge. Treatment Goals Patient/Caregiver Goals Kris's goals include reducing urgency and frequency , nocturia and decreasing urinary leakage PT-OP-C Subjective Start: 04/08/24 11:30 Freq: Status: Active Protocol: Document 04/14/24 13:01 [facility] (Rec: 04/14/24 13:45 [facility] [id number]) OP-PT Subjective Patient Comments Patient Comments pt brings in his bladder diary and and his urgency appears worse at night. HE consumes more water after dinner sitting and watching TV. He does drink a black tea after dinner each night around 9:00 The dripping is more seldom and seems to be getting PT-OP-F Manual Assessment Start: 04/08/24 11:30 Freq: Status: Active Protocol: Document 04/08/24 11:30 [facility] (Rec: 04/09/24 16:00 [facility] [id number]) Manual Assessments Soft Tissue Assessment Soft Tissue Mobility Assessment muscle guarding of the lumbar paraspinals and gluteals, tightness of the ITB and right quad PT-OP-I Pelvic Floor Start: 04/08/24 11:30 Freq: Status: Active Protocol: Document 04/08/24 11:30 [facility] (Rec: 04/09/24 16:00 [facility] [id number]) Pelvic Floor Assessment Urine Urinary Symptoms Urge Sensation,Incomplete Emptying Other Urinary Symptoms urinary leakage 3 times per day Leakage Size Medium Leakage Cause Urge Other Leakage Causes walking to the toilet or water running Leaks Per Day 3 Voiding Frequency every hour during the day Nocturia 2 Urine Pad Type Depends Contraction Ability Voluntary Contraction Weak Voluntary Relaxation Weak PT-OP-M Strength Start: 04/08/24 11:30 Freq: Status: Active Protocol: Document 04/08/24 11:30 [facility] (Rec: 04/09/24 16:00 [facility] [id number]) Trunk Strength Trunk Manual Muscle Testing Testing Position Sitting Flexion 2+ Poor+ Core Stabilization decreased core stabilization Hip Strength Hip Manual Muscle Testing Right Flexion (L2) 3 Fair Extension (S1) 3 Fair PT-OP-Q Treatments Start: 04/08/24 11:30 Freq: Status: Active Protocol: Document 04/14/24 13:01 [facility] (Rec: 04/14/24 13:45 [facility] [id number]) Therapeutic Exercises Supine Exercises supine ball squeeze Reps/Minutes hold 5 seconds and rest 10 seconds pelvic floor exercise Reps/Minutes 5 sec hold and 10 sec rest Sitting Exercises seated quick contractions Reps/Minutes 3 x 5 reps Comments cues to not hold his breath sit-stand with pelvic floor engagement Reps/Minutes each time he stands from a chair Self-Care/Home Management Treatment Education Patient Education Home Exercise Program Other Education review of bladder diary and pt appears to be voiding more often between 8-10 at night. He does drink black tea at night and he was advised on how that is a bladder irritant , urge deference technique was reviewed and he was educated on starting to work on delaying his voids if he is successful with urge deference technique PT-OP-T Assessment and Plan Start: 04/08/24 11:30 Freq: Status: Active Protocol: Document 04/14/24 14:31 [facility] (Rec: 04/14/24 14:33 [facility] [id number]) Physical Therapy Assessment Goals 3 Impairment Decreased endurance of the pelvic floor Short Term Goal (STG) Kris is able to sustain a pelvic floor contraction in supine x 10 seconds STG Duration 5 weeks 2 Impairment LE and core weakness making transers in and out of bed and from sitting to standing difficult Short Term Goal (STG) Kris is educated on a home program for core strengthening and LE strengthening STG Duration 5 weeks Painting Machine Operator Goal (LTG) Kris is able to perform sit -stand with improved mobility with core engagement LTG Duration 8 weeks + 1 Impairment urinary urgency, frequency, urge incontinence and nocturia Short Term Goal (STG) Kris is educated on bladder irritants, given a bladder diary, and instructed on the urge deference technique STG Duration 4 weeks Nursing Home Goal (LTG) Kris reports a overall reduction in urinary urgency, frequency, incontinence and nocturia LTG Duration 8 + weeks Assessment Summary Assessment Kris is tolerating treatment well, no increase in LBP or right sided hip pain. Added in sit-stand with pelvic floor engagement and pelvic floor long holds today, ball squeeze with pelvic floor activation Physical Therapy Plan Frequency and Duration Frequency of Treatment 1x/Week Duration of treatment (weeks) 8 Plan of Care Start Date 04/08/24 Plan of Care End Date 06/03/24 Therapeutic Interventions Therapeutic Interventions Home Exercise Program, Neuromuscular Re-education, Patient/Caregiver Education, Self-Care/Home Management, Therapeutic Exercises Next Visit Focus/Plan Next Note Type Treatment Note Next Visit Plan continue reviewing bladder diary, try to begin bladder retraining and continue with pelvic floor endurance training
--- NOTE | 2024-06-15 08:35 | PT.OPDS ---
Current Diagnoses Other specified joint disorders, right hip (04/14/24) Overactive bladder (04/14/24) Pelvic muscle wasting (04/14/24) Nocturia (04/14/24) Visit Care Team Role Provider Type Matt Medina MD Family Provider Physician Primary Care Provider Specialty: Internal Medicine Address: [address] [place] [address], [address], [address] Email: [email or web address] Anjum Noel DO Attending Provider Physician Referring Provider Specialty: Urology Address: [address] [place] [address], [id number] Fax: Email: Visit Number Visit Number 2 Discharge Summary PT-OP-B Current Condition Start: 04/08/24 11:30 Freq: Status: Active Protocol: Document 04/08/24 11:30 [facility] (Rec: 04/08/24 12:13 [facility] [id number]) Current Condition History of Current Condition Onset Date worsening in the last year Current Complaints urinary urgency, frequency, urge incontinence, nocturia History of Current Condition over a year his symptoms have been progressing, in the past 6 monts he has had to switch to wearing depends and his frequency has increased. Certain times of the days it can be every half hour he is going to the bathroom. If he is doing something like driving his car to [place] he can avoid the urge but at times he will feel the urge. He does carry a bottle in the car incase he needs to use it . Usually at home he voids every hour. He notes that sometimes he will leak on the way to the bathroom. Some times he has to chage his depends 2 times per day. He does use a walker in the house . He has a history of type II diabetes with peripheral neruopathy and he uses topical ointments on his feet and shins as the pain prevents him from sleeping. , he works on trying to avoid sugar, he has had bouts of dizzyness and falling and has been hospitalized a few times for falls. He lives with his at home. He has undergone three spinal surgeries in the past year. Laminectomy of L5-SI and he notes there was a cyst growing by the spinal cord. A second surgery was performed to remove the cyst. A third time he went back in to remove a second cyst and this time a fusion at L4-5. He still has back pain on his left side but the worse pain of all is his right hip joint is bone on bone. He wears pain patches on the right side every day. Fluids: He starts with a 10 oz glass of water with his tynenol and then a hour later he has a second glass. In that time he has 1-2 cups of coffee. he eats breakfast which is mostly two eggs and hashbrown potatoes, during the day he drinks non sugar beverages including a non surgar fruit juice and coke zero he uses the 6 oz cans and will drink approx 3 of those. A trigger for him is walking into the kitchen to wash dishes and the running water causes a urge. Treatment Goals Patient/Caregiver Goals Kris's goals include reducing urgency and frequency , nocturia and decreasing urinary leakage PT-OP-C Subjective Start: 04/08/24 11:30 Freq: Status: Active Protocol: Document 04/14/24 13:01 [facility] (Rec: 04/14/24 13:45 [facility] [id number]) OP-PT Subjective Patient Comments Patient Comments pt brings in his bladder diary and and his urgency appears worse at night. HE consumes more water after dinner sitting and watching TV. He does drink a black tea after dinner each night around 9:00 The dripping is more seldom and seems to be getting PT-OP-F Manual Assessment Start: 04/08/24 11:30 Freq: Status: Active Protocol: Document 04/08/24 11:30 [facility] (Rec: 04/09/24 16:00 [facility] [id number]) Manual Assessments Soft Tissue Assessment Soft Tissue Mobility Assessment muscle guarding of the lumbar paraspinals and gluteals, tightness of the ITB and right quad PT-OP-I Pelvic Floor Start: 04/08/24 11:30 Freq: Status: Active Protocol: Document 04/08/24 11:30 [facility] (Rec: 04/09/24 16:00 [facility] [id number]) Pelvic Floor Assessment Urine Urinary Symptoms Urge Sensation,Incomplete Emptying Other Urinary Symptoms urinary leakage 3 times per day Leakage Size Medium Leakage Cause Urge Other Leakage Causes walking to the toilet or water running Leaks Per Day 3 Voiding Frequency every hour during the day Nocturia 2 Urine Pad Type Depends Contraction Ability Voluntary Contraction Weak Voluntary Relaxation Weak PT-OP-M Strength Start: 04/08/24 11:30 Freq: Status: Active Protocol: Document 04/08/24 11:30 [facility] (Rec: 04/09/24 16:00 [facility] [id number]) Trunk Strength Trunk Manual Muscle Testing Testing Position Sitting Flexion 2+ Poor+ Core Stabilization decreased core stabilization Hip Strength Hip Manual Muscle Testing Right Flexion (L2) 3 Fair Extension (S1) 3 Fair PT-OP-T Assessment and Plan Start: 04/08/24 11:30 Freq: Status: Active Protocol: Document 06/15/24 08:33 [facility] (Rec: 06/15/24 08:35 [facility] [id number]) Physical Therapy Assessment Assessment Summary Assessment Kris had to hold off on PT for a few months and his plan of care ended for insurance. He is not set up with a new appointment so this chart will be discontinued at this time Physical Therapy Plan Discharge Physical Therapy Discharge Reasons Patient Request
== END 2024-06-17 13:06 | disposition home or self-care (01) ==
LOC: PHYS 13:00
PROVIDERS: Family Provider Internal Medicine; PCP Internal Medicine; Referring Provider Urology; Visit Provider Urology
DX: N32.81 Overactive bladder (principal); N81.84 Pelvic muscle wasting; M25.851 Other specified joint disorders, right hip; R35.1 Nocturia
CPT/HCPCS: 97110; 97163; 97535

== ENCOUNTER → 2024-04-20 11:41 | Outpatient (CLI) | payer MEDICARE, OTHER, SELFPAY ==
[2023-04-23 11:56] VITALS: BMI 287.9
[2024-04-20 13:11] LABS: Hemoglobin A1C% w Est Avg Glu 6.7 % (4.0-6.0)
[2024-04-20 13:37] LABS: Alanine Aminotransferase 20 IU/L (<50); Albumin 4.7 g/dL (3.5-5.0); Albumin Globulin Ratio 1.7 (1.0-2.8); Alkaline Phosphatase 133 U/L (38-126); Aspartate Aminotransferase 31 IU/L (17-59); BUN Creatinine Ratio 16.9 (6-22); Bilirubin Total 0.9 mg/dL (0.2-1.3); Blood Urea Nitrogen 26 mg/dL (9-20); Calcium 9.4 mg/dL (8.4-10.2); Carbon Dioxide 22 mmol/L (22-32); Chloride 103 mmol/L (98-107); Estimated Glomerular Filt Rate 45 mL/min (>60); Globulin 2.7 g/dL (1.7-4.1); Glucose 159 mg/dL (80-110); HEMOLYSIS < 15 (0-50); Potassium 5.3 mmol/L (3.4-5.1); Sodium 138 mmol/L (137-145); Total Protein 7.4 g/dL (6.3-8.2)
== END ==
PROVIDERS: Family Provider Internal Medicine; PCP Internal Medicine; Referring Provider Internal Medicine; Visit Provider Internal Medicine
DX: E11.9 Type 2 diabetes mellitus without complications (principal); I10 Essential (primary) hypertension
CPT/HCPCS: 36415; 80053; 83036

== ENCOUNTER → 2024-07-25 10:08 | Outpatient (CLI) | payer MEDICARE, OTHER, SELFPAY ==
[2023-04-23 11:56] VITALS: BMI 287.9
[2024-07-25 12:22] LABS: Alanine Aminotransferase 19 IU/L (<50); Albumin 4.6 g/dL (3.5-5.0); Albumin Globulin Ratio 1.8 (1.0-2.8); Alkaline Phosphatase 130 U/L (38-126); Aspartate Aminotransferase 27 IU/L (17-59); BUN Creatinine Ratio 24.1 (6-22); Bilirubin Total 0.7 mg/dL (0.2-1.3); Blood Urea Nitrogen 35 mg/dL (9-20); Calcium 9.2 mg/dL (8.4-10.2); Carbon Dioxide 21 mmol/L (22-32); Chloride 107 mmol/L (98-107); Cholesterol 149 mg/dL (140-199); Estimated Glomerular Filt Rate 48 mL/min (>60); Globulin 2.5 g/dL (1.7-4.1); Glucose 166 mg/dL (70-99); HDL Cholesterol 39 mg/dL (40-60); HEMOLYSIS < 15 (0-50); LDL Cholesterol Calculated 65 mg/dL (<100); Potassium 4.8 mmol/L (3.4-5.1); Sodium 140 mmol/L (137-145); Total Protein 7.1 g/dL (6.3-8.2); Triglycerides 224 mg/dL (35-150)
[2024-07-25 12:55] LABS: TSH w/ Reflex to FT4 3.37 uIU/mL (0.47-4.68)
[2024-07-25 12:59] LABS: Hemoglobin A1C% w Est Avg Glu 6.2 % (4.0-6.0)
== END ==
PROVIDERS: Family Provider Internal Medicine; PCP Internal Medicine; Referring Provider Internal Medicine; Visit Provider Internal Medicine
DX: I12.9 Hypertensive chronic kidney disease with stage 1 through stage 4 chronic kidney disease, or unspecified chronic kidney disease (principal); E11.9 Type 2 diabetes mellitus without complications; E78.2 Mixed hyperlipidemia; N18.31 Chronic kidney disease, stage 3a; E03.9 Hypothyroidism, unspecified
CPT/HCPCS: 36415; 80053; 80061; 83036; 84443

== ENCOUNTER 2024-09-23 11:54 | Inpatient (IN) | payer MEDICARE, OTHER, SELFPAY ==
[2023-04-23 11:56] VITALS: BMI 287.9
[2024-09-07 09:54] VITALS: BMI 29.5
[2024-09-22] VITALS (14 sets, daily range): BP systolic 102–125; BP diastolic 50–76; PULSE 60–90; RESP 12–19; TEMP 35.6–36.4; O2SAT 91–97; BMI 30.5
--- NOTE | 2024-09-22 | DI.RAD.S_ITS ---
PROCEDURE: XR PELVIS 1-2V INDICATIONS: intra op total rt hip TECHNIQUE: A single fluoroscopic image was obtained during an operative procedure and submitted for interpretation following the completion of the procedure. COMPARISON: [facility], CR, XR PELVIS WITH LATERAL HIP RIGHT, 05/29/2024, 16:13. [facility], CR, PELVIS 1 OR 2 VIEWS, 07/11/2015, 16:15. FINDINGS/IMPRESSION: Imaging was performed for intraoperative localization. Please correlate with intraoperative findings. Dictated by: Sameer Urrutia M.D. on 09/22/2024 at 9:49 Approved by: Sameer Urrutia M.D. on 09/22/2024 at 9:50
--- NOTE | 2024-09-22 06:37 | DI.RAD.S_ITS ---
PROCEDURE: XR HIP W PEL IF DONE RT 2V INDICATIONS: KITTY TECHNIQUE: AP pelvis and lateral view of the hip acquired. COMPARISON: [facility], CR, XR PELVIS WITH LATERAL HIP RIGHT, 05/29/2024, 16:13. [facility], CR, XR PELVIS 1-2V, 09/22/2024, 9:21. FINDINGS: Bones: Patient is status post right hip arthroplasty, with hardware components in expected positions. The hip joint appears congruent. The visualized bony structures appear intact. Moderate contralateral left hip degenerative change is seen. Soft tissues: Overlying postoperative changes are noted. No suspicious soft tissue densities. Atherosclerotic calcification is noted. IMPRESSION: Expected post-operative appearance of a hip arthroplasty. Dictated by: Sameer Urrutia M.D. on 09/22/2024 at 11:00 Approved by: Sameer Urrutia M.D. on 09/22/2024 at 11:00
[2024-09-22] MEDS: ACETAMINOPHEN 325 MG TABLET 975 MG PO (07:00)
[2024-09-22] MEDS: CELECOXIB 200 MG CAPSULE PO (07:00)
[2024-09-22] MEDS: VANCOMYCIN 1,000 MG in SODIUM CHLORIDE 0.9% 250 ML 250 MG IV (07:00)
[2024-09-22] MEDS: LACTATED RINGERS 1,000 ML 84 ML IV ×2 (07:01→10:53)
--- NOTE | 2024-09-22 07:33 | PM.PREOP ---
Pre-operative Note Interval Note History & Physical reviewed/Exam performed by Physician: Yes Changes to H&P: No
--- NOTE | 2024-09-22 07:34 | PM.OP.1 ---
Operative Date/Time/Diagnoses Date of procedure: 09/22/24 Time of procedure: 08:00 Pre-op diagnosis: Right hip osteoarthritis history of prior right hip fracture Post-op diagnosis: same Procedure & Clinicians Procedure: Right total hip arthroplasty posterior approach Same procedure(s) as scheduled: Yes Indications: The patient has had progressively worsening right hip pain with radiographic changes consistent with arthritis. Non-operative management has failed and the patient has requested total hip replacement. The risks, benefits and alternatives to surgery were discussed with the patient prior to proceeding. Risks discussed included, but were not limited to, failure to relieve pain, leg length discrepancy, dislocation, stiffness, infection, nerve damage, deep venous thrombosis, pulmonary embolism, stroke, coma, heart attack, permanent paralysis and , as well as the potential need for eventual revision of the prosthetic. Surgeon: Sarah Osei Stogy Maker: Chadd Vasquez Anesthesia Type: General and Spinal Operative Notes Findings: Severe right hip OA, adequate stability, adequate bone Closure Type: primary Specimen(s): other (Culture and sensitivity, PCR) Prosthetic devices, grafts, tissues, transplants, or devices: Osei and Nephew R3 60, neutral poly liner, two 6.5 mm screws, Synergy stem high offset size 13, +4 by 40, Applied: none Estimated Blood Loss (mL): 250 Blood products transfused: none Procedure in detail: The patient was seen in the pre-operative area, where the patient identified the right hip as the operative site and this was marked with my initials. The patient received pre-operative antibiotics and was taken to the operating room and placed on the operative table in the left lateral decubitus position after satisfactory anesthesia. A mergers and acquisitions associate out was performed. The right leg was prepared from the ankle to the iliac crest with ChloroPrep in the usual fashion and draped through sterile drapes. A PA was used during the procedure and was essential for intraoperative retraction and safe implantation of the components. The hip was approached through an approximately 20 cm incision centered over the greater trochanter and curving gently posteriorly as it went proximally. He had an extensive scar from his previous surgery. This was carried sharply to the fascia arnel, which was divided and retracted with a self retaining retractor. A more extensive incision was used because of substantial scar and the patient's prior surgery. The trochanteric bursa was excised with care being taken to avoid the sciatic nerve, which was identified and protected throughout the case. The short external rotators were incised and the capsulomuscular flap was raised and tagged for later repair. The hip was dislocated, and a femoral neck osteotomy performed approximately 15 mm above the lesser trochanter. Retractors were placed around the femur. The canal was opened with a box cutting osteotome, followed by a T handled reamer and a lateralizing reamer. There was a bony bar across the intramedullary canal which we had seen previously on the preoperative x-ray. It did make the canal prep somewhat more technically demanding. The starter Reamer was advanced down into the canal. Used a combination of hand and power reamers in order to ream the canal. Multiple reamers were used to open the canal. The starter broach was then used, followed by sequential broaching until there was good stability of the broach in the femur. Retractors were placed to expose the acetabulum. The labrum and central soft tissues were removed. Reaming was performed initially going up in 2 mm increments, then 1 mm increments until good bite was obtained with an odd sized reamer. The cup 1 mm larger than the last reamer was then inserted using the appropriate anteversion guides. It was further stabilized with two screws. A trial neutral liner was placed. The broach was placed in the canal. A trial head and neck were then placed and the hip relocated and checked for leg length and stability. An intraoperative film confirmed the component position and no evidence of fracture. The patient was stable in the position of sleep, of squatting, and could be put through a range of motion with 45 degrees internal rotation without dislocation. At 90 degrees flexion, internal rotation to 70? Was possible before dislocation. I checked the lateral aspect of the femur and broach insertion site. There was a bony bar and some tex cortex about 4 cm down the canal. I was able to broach up an additional broach size. Even on power the canal reamers were not very effective in this tex cortex. I decided that the stem was best used with cement technology. The canal was meticulously prepped after inserting the polyethylene acetabular liner. This was felt to be satisfactory and the appropriate components were opened, and the trials were removed. The acetabular liner was impacted into position. We carefully prepped the femoral canal for cementing. The final stem was then cemented into the prepared femoral canal. A brief Betadine soak was performed while trialing with head options. The hip was meticulously irrigated with normal saline. Finally the femoral head was impacted onto the stem. The acetabulum was cleared of all material and the hip relocated one final time. The capsulomuscular flap was then repaired to the greater trochanter though an awl hole using the tag sutures. The short external rotators were repaired with a nonabsorbable suture. The fascia arnel was closed with Vicryl. The subcutaneous layer was closed with barbed sutures and surgical glue. A agustin dressing was applied and the patient was taken to recovery having tolerated the procedure well. Complications: none Post-operative Condition: stable Disposition: Acute Care Plan for aftercare: The patient will be maintained on a standard total hip replacement protocol with weight bearing as tolerated and posterior hip precautions. The patient will receive Aspirin and sequential compression devices for DVT prophylaxis. The patient will be discharged home when safe for the home environment.
[2024-09-22] MEDS: CLINDAMYCIN 900 MG/50 ML PIGGYBACK 50 MG IV (07:55)
[2024-09-22] MEDS: TRANEXAMIC ACID 1,000 MG VIAL 1000 MG INJ ×2 (08:20→10:33)
--- NOTE | 2024-09-22 08:34 | SUR.OPER ---
Lateral on padded OR bed. Gel axillary roll. Arms secured on padded armboard with pillow supporting top arm. Padded hip positioner braces x4 - anterior and posterior chest and pelvis. Additional gel pad used anterior pelvis. Gel pad under bottom leg from knee to foot and secured with tape over sheet.
[2024-09-22] MEDS: BUPIVACAINE LIPOSOME 266 MG/20 ML VIAL INJ (08:50)
[2024-09-22] MEDS: BUPIVACAINE 0.25% W/ EPI 30 ML VIAL 60 ML INJ (08:51)
[2024-09-22] MEDS: EPINEPHrine 1 MG/ML IRR (08:54)
--- NOTE | 2024-09-22 10:44 | PM.CN.IH.1 ---
History of Present Illness Consult details Date Patient Seen: 09/22/24 Time Patient Seen: 13:29 Chief complaint: right KITTY Reason for consult: Medical Management Requesting provider: Sarah Osei Narrative: 84-year-old male with extensive cardiac history is status post right total hip arthroplasty today by Dr. Sarah Osei Patient has a history of coronary disease and ischemic cardiomyopathy with most recent evaluation that is suggesting left ventricular ejection fraction of 38%. Also somewhat recently had implantation of a intracardiac defibrillator with a history of ventricular tachycardia and his cardiomyopathy etcetera Has been medically optimized for surgery by Cardiology and myself. Patient also has type 2 diabetes on oral meds and diet control, with remarkably good control most recent A1c at 6.2 Patient also with lower urinary tract symptoms due to BPH on alpha-philippe therapy Patient also with chronic back pain felt to have a post laminectomy syndrome, but not on chronic opiate therapy Patient seen in his room after recovering in the PACU. Somewhat somnolent sleepy and just now beginning to be able to move his toes, as he recovers from his spinal anesthesia. He is sitting up working on eating lunch Denies any chest pain any shortness of breath. No sense of palpitations no headache. Pain is really not present at this time. Meds Home Medications and Allergies Home Medications ?Medication ?Instructions ?Recorded ?Confirmed ?Type aspirin 81 mg tablet,delayed 81 mg PO DAILY 09/09/18 09/22/24 History release (Adult Low Dose Aspirin) rosuvastatin 20 mg tablet 20 mg PO QPM 08/17/20 09/22/24 History blood-glucose meter #1 ea 08/04/21 07/28/24 Rx blood sugar diagnostic (Blood #100 ea 10/31/21 07/28/24 Rx Glucose Test strips) lancets 33 gauge (BD Ultra Fine #100 ea 10/31/21 07/28/24 Rx Lancets) Disabled Parking #1 ea 03/27/22 07/28/24 Rx isosorbide dinitrate 20 mg tablet 20 mg PO BID #1 tab 04/23/23 09/22/24 Rx leflunomide 20 mg tablet 20 mg PO DAILY 09/02/23 09/22/24 History glipizide 10 mg tablet, extended 10 mg PO BID #180 tabs 11/22/23 09/22/24 Rx release 24 hr vitamin B complex 1 tab PO DAILY 12/11/23 09/22/24 History torsemide 20 mg tablet 20 - 40 mg (1 - 2 x 20 mg) PO 12/13/23 09/22/24 Rx DAILY #180 tabs albuterol sulfate 90 mcg/actuation 2 puff inhalation Q4-6H PRN 01/28/24 09/07/24 Rx aerosol inhaler shortness of breath or wheezing #8.5 grams famotidine 20 mg tablet 20 mg PO BID #180 tabs 02/11/24 09/22/24 Rx empagliflozin 10 mg tablet 10 mg PO DAILY 03/11/24 09/22/24 History (Jardiance) spironolactone 25 mg tablet 25 mg PO DAILY 03/11/24 09/22/24 History carvedilol 6.25 mg tablet 6.25 mg PO BID 04/28/24 09/22/24 History gabapentin 100 mg capsule 200 mg (2 x 100 mg) PO BEDTIME 04/28/24 09/22/24 Rx #180 caps sacubitril 49 mg-valsartan 51 mg 0.5 tab PO BID 04/28/24 09/22/24 History tablet (Entresto) folic acid 1 mg tablet 1 mg PO DAILY #90 tabs 05/11/24 09/22/24 Rx tamsulosin 0.4 mg capsule (Flomax) 0.4 mg PO BID #180 tabs 05/20/24 09/22/24 Rx pantoprazole 40 mg tablet,delayed 40 mg PO BID #180 tabs 08/05/24 09/22/24 Rx release magnesium oxide 400 mg PO BID #60 tabs 08/06/24 09/22/24 Rx tolterodine 4 mg capsule,extended 4 mg PO DAILY #90 caps 09/15/24 09/22/24 Rx release 24 hr sertraline 100 mg tablet 150 mg (1.5 x 100 mg) PO DAILY 09/18/24 09/22/24 Rx #135 tabs Allergies Allergy/AdvReac Type Severity Reaction Status Date / Time clavulanic acid (From Allergy Severe Rash/Hives Verified 09/22/24 06:47 Augmentin) - internal reaction clopidogrel (From Plavix) Allergy Severe Hives. Verified 09/22/24 06:47 Penicillins Allergy Intermediate HIVES Verified 09/22/24 06:47 methotrexate AdvReac Severe Blister Verified 09/22/24 06:47 amoxicillin AdvReac Intermediate Hives Verified 09/22/24 06:47 metformin AdvReac Intermediate diarrhea Verified 09/22/24 06:47 semaglutide (From Ozempic) AdvReac Intermediate pancreatiti Verified 09/22/24 06:47 s [id number] Reductase AdvReac Intermediate fatigue, Verified 09/22/24 06:47 Inhibitor ([place]-Ajj-Ktf extreme Reductase Inhibitor) Review of Systems Review of Systems ROS: Yes All systems reviewed with the patient and are negative except as otherwise documented Exam Vital Signs (past 8 hours): - 09/22/24 07:03 Temperature 97.3 F L Pulse Rate 70 Respiratory Rate 18 Blood Pressure 106/58 L Pulse Oximetry 97 Oxygen Delivery Method Room Air Oxygen Delivery Method Room Air Narrative Exam Narrative: Elderly male in no obvious distress sitting up in his hospital bed slowly working on eating lunch HEENT unremarkable Lungs-somewhat diminished breath sounds but improved with increased effort, no wheezes or crackles Heart-regular rate and rhythm Abdomen-benign Objective Labs Labs: Laboratory Results - last 24 hr 09/22/24 06:59 POC Whole Bld Glucose 113 H [facility] Medical History Poor short term memory ICD (implantable cardioverter-defibrillator) in place (05/08/24) History of nephrolithiasis Chronic renal failure, stage 3a Overactive bladder Urinary incontinence Post laminectomy syndrome Mitral valve insufficiency Cardiomyopathy Chronic HFrEF (heart failure with reduced ejection fraction) Nonsustained paroxysmal ventricular tachycardia Mild claudication Recurrent falls Spinal stenosis Tinnitus Diabetes HLD (hyperlipidemia) Depression Incomplete bladder emptying Hayfever (1999) Shoulder pain (2011) Fracture (1951) Chronic back pain (1989) Hepatitis A (1963) Melanoma (1987) Gilbert's syndrome Femur fracture (1965) Primary osteoarthritis of both hips (08/30/15) Polymyalgia rheumatica (08/30/15) Type 2 diabetes mellitus without complication (06/05/15) Benign prostatic hyperplasia with urinary obstruction (03/25/15) Peripheral vascular disease (2009) Coronary artery disease involving hamilton coronary artery of hamilton heart without angina pectoris (1995) Essential hypertension Mixed hyperlipidemia Surgical History History of lumbar spinal fusion (~02/2024) Hx of laminectomy (~12/2023) History of bilateral cataract extraction History of coronary artery stent placement (07/29/18) History of orthopedic surgery (1965) Status post appendectomy (1956) Status post coronary artery bypass graft (1995) Family History Father Colon cancer Prostate enlargement Bladder cancer History of hip surgery Pneumonia History of prostate surgery Mother Diabetes mellitus Heart disease Hypertension High cholesterol Osteoporosis History of cataract surgery H/O heart bypass surgery Arthritis Grandfather Arthritis Prostate cancer Colon cancer Deaf Legally blind Grandmother Diabetes mellitus Hypertension Angina pectoris Heart disease Osteoporosis Social History marital status: number of children: 0 household members: spouse lives independently: Yes caregiver/support person: No housing: house pets and animals: Yes education level: other occupational status: other 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/holiness: None travel history: other leisure activities: other Tobacco & Substance Use Smoking Status: Former smoker Tobacco: How many years used: 20 Smokeless tobacco user: other quit status: quit date established second hand exposure: No alcohol intake: former substance use type: does not use and marijuana Assessment & Plan Assessment & Plan narrative: 1. Status post right total hip arthroplasty-continued postoperative management as per Orthopedic surgery. Patient will most likely need to go to custodial for rehab as his spouse is unable to provide any significant help at home, but if he does improve enough to be more self-sufficient and independent home maybe a candidate for discharge home 2. Cardiomyopathy-continue patient's preop hospitalization cardiac meds including his diuretics, his Entresto, etcetera. Monitor carefully for evidence of volume overload and treat aggressively with diuretic therapy. I am going to DC his IV fluids as he is now awake alert and eating and drinking presumably normally. Does not appear based on op note that he had any worrisome blood loss that would require volume replacement. 3. Diabetes-will cover with insulin while in the hospital and place him on a carb consistent diet. Likely can return to his usual diet and usual oral medications upon discharge 4. BPH with LUTS-continue patient's usual medications 5. Hypertension-continue usual medications monitor here in the hospital 6. Hyperlipidemia-continue patient's usual medications 7. VTE prophylaxis-I would recommend use of either Lovenox or a direct oral anticoagulant for VTE prevention, beginning 6-8 hours after surgery. It is my opinion that there is not enough data or large trials to support the use of aspirin alone in this setting. I would encourage 10-14 days of postoperative VTE chemo prophylaxis. Time-Based Coding :: [TOTAL MINUTES] spent with patient and on the chart (including review of chart, obtaining history, exam, reviewing outside data, placing orders, documenting exam and treatment plan, and counseling patient) on [DATE]. PROFEE Charge Codes Inpatient or Observation consultation: [id number]
--- NOTE | 2024-09-22 12:19 | PC.NURSE ---
Patient arrives from PACU at noon, he is A&OX4, VSS, afebrile on RA. He denies pain to R hip. He also is unable to wiggle toes and reports below the waist dull sensation and below the knees without sensation upon arrival. He states his last void was about 0730 a.m. arrives at bedside. SCD's placed, IVF running per MAY, posterior hip precautions, POSTOP VS, call light /urinal in reach, bed alarm on, continuous monitoring.
--- NOTE | 2024-09-22 13:03 | OT.IPNOTE ---
Pt just getting lunch and per nursing still has numbness in his RLE. To check on pt tomorrow for OT neo.
[2024-09-22] MEDS: LACTATED RINGERS 1,000 ML 100 ML IV (13:07)
[2024-09-22] MEDS: ACETAMINOPHEN 325 MG TABLET 650 MG PO ×2 (13:08→18:15)
--- NOTE | 2024-09-22 15:20 | PT.IIE ---
Current Diagnoses Unilateral post-traumatic osteoarthritis, right hip (09/22/24) Surgery Performed Operation Date: 09/22/24 07:45 Actual Procedures p Total Hip Arthroplasty, Cemented, Posterior(Right) - Sarah Osei MD Surgical History (Last Reviewed 09/22/24 @ 10:48 by Matt Medina MD) History of bilateral cataract extraction History of coronary artery stent placement (07/29/18) History of lumbar spinal fusion (~02/2024) History of orthopedic surgery (1965) Hx of laminectomy (~12/2023) Status post appendectomy (1956) Status post coronary artery bypass graft (1995) Medical History (Last Reviewed 09/22/24 @ 10:48 by Matt Medina MD) Benign prostatic hyperplasia with urinary obstruction (03/25/15) Cardiomyopathy Chronic back pain (1989) Chronic HFrEF (heart failure with reduced ejection fraction) Chronic renal failure, stage 3a Coronary artery disease involving [place] coronary artery of [place] heart without angina pectoris (1995) Depression Diabetes Essential hypertension Femur fracture (1965) Fracture (1951) Gilbert's syndrome Hayfever (1999) Hepatitis A (1963) History of nephrolithiasis HLD (hyperlipidemia) ICD (implantable cardioverter-defibrillator) in place (05/08/24) Incomplete bladder emptying Melanoma (1987) Mild claudication Mitral valve insufficiency Mixed hyperlipidemia Nonsustained paroxysmal ventricular tachycardia Overactive bladder Peripheral vascular disease (2009) Polymyalgia rheumatica (08/30/15) Poor short term memory Post laminectomy syndrome Primary osteoarthritis of both hips (08/30/15) Recurrent falls Shoulder pain (2011) Spinal stenosis Tinnitus Type 2 diabetes mellitus without complication (06/05/15) Urinary incontinence Physical Therapy Inpatient Evaluation/Re-Eval M1 PT/OT-IP Prior Functional Status Start: 09/22/24 16:36 Freq: NEEDED Status: Active Protocol: Document 09/22/24 15:20 AB (Rec: 09/22/24 16:52 AB [id number]) Medical Review Prior Functional Status Medical History Yes Reviewed Communication able to make needs known Mobility and Gait pt stated that he was modified independent with all mobilities and ambulation using a 4WW/SPC indoors and SPC outdoors; pt has h/o falls Social History Household Members spouse Living Arrangements House Number of Floors ( One Floor Floors) Number of Stairs To 2 steps L rail ascending to enter the house Enter/Railing? Home Environment Standard Height Toilet,Walk in Shower,Built-In Shower Seat Home Equipment Front Wheel Walker,Four Wheel Walker,Straight Cane, Raised Toilet Seat w/Armrests,Shower Seat with Backrest ,Hand Held Shower,Grab Bars In Shower Additional Social spouse limited with assistance she can provide to pt History Comment M2 PT-IP Current Condition Start: 09/22/24 16:36 Freq: NEEDED Status: Active Protocol: Document 09/22/24 15:20 AB (Rec: 09/22/24 16:52 AB [id number]) Physical Therapy Current Condition Current Condition Evaluation Date 09/22/24 Treatment Diagnosis s/p R KITTY posterior; difficulty in walking Onset Date 09/22/24 M3 PT-IP Subjective Start: 09/22/24 16:36 Freq: NEEDED Status: Active Protocol: Document 09/22/24 15:20 AB (Rec: 09/22/24 16:52 AB [id number]) Subjective Physical Therapy Visit Type Type Initial Evaluation Visit Start Time 15:20 Visit Stop Time 16:30 Number of FRONT OFFICE CLERK Visits 0 Physical Therapy Visit Comments Patient Comments agreeable to do PT Therapy Pain Assessment Pain When Pain Assessed At Rest Pain Present Pain Present Pain Reported Location Right Hip Intensity 3 Scale Used Numeric (0 - 10) Pain Behaviors Guarding,Holding Area Pain Management Apply Cold,Distraction,Modification of Treatment,Re- Techniques positioning,Timing of Activity with Medications M4 PT-IP Mobility and Gait Start: 09/22/24 16:36 Freq: NEEDED Status: Active Protocol: Document 09/22/24 15:20 AB (Rec: 09/22/24 16:52 AB [id number]) PT-Bed Mobility Assessment Supine to Sit Supine to Sit Maximum Assistance,1 Person Assistance,Head of Bed Elevated,Bedrails PT-Transfer Assessment Sit to and From Stand Sit to and from Maximum Assistance,1 Person Assistance,2 Person Stand Assistance,Use of Upper Extremities Equipment Transfer Assistive Small Based Quad Cane,Front Wheeled Walker Device Orthotic/Prosthetic No Devices or Brace: Transfers Transfer Destination Toilet Transfer Technique ambulated Transfer Ability Level of Assist Moderate Assistance,Maximum Assistance,1 Person Assistance,Use of Upper Extremities Comments Mobility Comments pt in bed and agreeable to do PT. obtained PLOF and home set up. post-op folder provided and reviewed contents. educated pt on R hip posterior precautions. BP: 121/76. completed supine to sit max A and max cues . HOB elevated ~ 15 deg. pt able to sit on EOB CGA. BP: 131/82. no c/o dizziness. pt requested to use the toilet. sit to stand from EOB max A 1-2 and max cues and ambulated to the toilet using FWW max A and max cues. pt was able to maintain standing using FWW/grab bar for support min A while using the toilet. pt ambulated out from the toilet and agreed to sit on the chair mod to max A for ambulation to the chair using fWW. assisted pt with brief management. able to complete sit to stand from chair max A x 1 and max cues. able to maintain standing min A while assisted with brief. pt sat back on chair and positioned. ice pack provided . call light and table placed within reach. Gait Assessment Gait Gait Assistance Moderate Assistance,Maximum Assistance Required: Distance (Feet) 12 Able to Maintain Yes Weight Bearing Status During Gait Assistive Devices Assistive Device Gait Belt,Front Wheeled Walker Orthotic/Prosthetic No Devices or Brace: Gait Deviations General Gait Pattern Decreased Stride Length,Decreased Feet Clearance Factors Limiting Gait Function Factors Limiting Decreased Activity Tolerance,Decreased Strength, Gait Function Difficulty Following Directions,Limited Range of Motion ,Pain,Poor Balance,Poor Safety Awareness PT-Balance Assessment Sitting Balance and Reactions Static Sitting Good Balance Ability Dynamic Sitting Fair Balance Ability Standing Balance and Reactions Static Standing Fair Balance Ability Dynamic Standing Poor Balance Ability Device Used FWW M5 PT-IP Objective Assessments Start: 09/22/24 16:36 Freq: NEEDED Status: Active Protocol: Document 09/22/24 15:20 AB (Rec: 09/22/24 16:52 AB [id number]) Orientation Orientation/Cognition Level of Alertness Alert Orientation Name,Place,Situation Safety Awareness Decreased Safety Awareness Memory Description No Deficits Noted Gross Range of Motion Lower Extremity ROM Assessment Within Functional Limits Strength Lower Extremity Strength Assessment Right Impaired Hip 3-/5 Knee 3+/5 Coordination Assessment Gross Coordination Gross Coordination WNL Sensation Assessment Sensation Gross Sensation WNL Muscle Tone Muscle Tone WNL Yes M6 PT-IP Treatment Start: 09/22/24 16:36 Freq: NEEDED Status: Active Protocol: Document 09/22/24 15:20 AB (Rec: 09/22/24 16:52 AB [id number]) Physical Therapy Treatment Exercises Exercises Heel Slides Education Education Provided Precautions,Weight Bearing Status,Post-Op Packet,Safety M7 PT-IP Assessment and Plan Start: 09/22/24 16:36 Freq: NEEDED Status: Active Protocol: Document 09/22/24 15:20 AB (Rec: 09/22/24 16:52 AB [id number]) PT Summary Assessment and Plan Potential Rehabilitation Fair Potential Status of Condition Evolving at Evaluation Summary Impairments Pain,ROM,Strength,Balance,Coordination,Bed Mobility, Transfers,Gait,Activity Tolerance Assessment Summary pt is an 84 y/o M s/p R KITTY posterior approach POD 0. pt has R hip posterior precautions and is WBAT. pt requiring max A x 1-2 with mobility and will benefit from SNF rehab at this time. pt lives with spouse but spouse is limited with her ability to assist pt. will continue to assess progress. pt has h/o falls and continue to be a fall risk. Goals Bed Mobility Goal Standby Assistance Transfer Goal Standby Assistance,Front Wheeled Walker Gait Goal Standby Assistance,Front Wheel Walker Gait Distance 100 Other Goals improve bed mobility, transfers, ambulation using FWW 150 ft mod I up/down 2 steps L rail ascending SBA Days to Meet Goals 10 Frequency of Treatment Frequency Of Twice a Day Treatment Treatment Plan Physical Therapy Bed Mobility Training,Transfer Training,Gait Training, Treatment Plan Therapeutic Exercise,Balance Retraining,Post Op Education,Discharge Planning,Hot or Cold Pack, Neuromuscular Re-ed,Coordination Retraining,Manual Therapy Precautions Posterior Hip No Hip Flexion > 90 degrees,No Hip Internal Rotation,No Precautions Hip Adduction Weight Bearing Status Weight Bearing Weight Bear as Tolerated Status Allowed Weight RLE WBAT Bearing Amount ( enter % or #) (%) Recommendations To Nursing Amount of Assist 2 Person Assist Needed Discharge Recommendations PT Discharge SNF Rehab Recommendations Transportation Needs Wheelchair/Cabulance at Discharge - PT assist 1-2
[2024-09-22] MEDS: INSULIN LISPRO 100 UNIT/ML 3ML VIAL SUBCUT (17:13)
[2024-09-22] MEDS: VANCOMYCIN 1,500 MG/300 ML PIGGYBACK 200 MG IV (18:09)
[2024-09-22] MEDS: MAGNESIUM OXIDE 400 MG TABLET PO (20:49)
[2024-09-22] MEDS: ATORVASTATIN 20 MG TABLET 40 MG PO (20:50)
[2024-09-22] MEDS: GABAPENTIN 100 MG CAPSULE 200 MG PO (20:50)
[2024-09-22] MEDS: ASPIRIN EC 81 MG TABLET PO (20:50)
[2024-09-22] MEDS: PANTOPRAZOLE DR 40 MG TABLET PO (20:51)
[2024-09-22] MEDS: FAMOTIDINE 20 MG TABLET PO (20:51)
[2024-09-22] MEDS: TAMSULOSIN 0.4 MG CAPSULE PO (20:51)
[2024-09-22] MEDS: DOCUSATE 100 MG CAPSULE PO (20:51)
[2024-09-22] MEDS: Sacubitril-Valsartan [Entresto] 49-51 mg tab 0.5 EACH PO (20:51)
[2024-09-22] MEDS: OXYCODONE IR 5 MG TABLET PO (22:03)
[2024-09-22] MEDS: OXYCODONE IR 10 MG TABLET PO (23:18)
--- NOTE | 2024-09-23 06:40 | P.PN_ITS ---
Subjective Subjective Date Patient Seen: 09/23/24 Time Patient Seen: 06:40 Interval history: Uneventful evening Vital signs have been stable with blood pressure in the 115-120 range systolic. Blood sugar acceptable although over 200 x 1 O2 saturation 94% on room air Having increased pain now at all the anesthetics have worn off. Very clear that he is not going to be able to go home if he continues to feel like he does today No respiratory symptoms. No chest pain no palpitations. Exam Vital Signs (past 8 hours): Oxygen Delivery Method Room Air Oxygen Flow Rate 0 Objective Labs Labs: Laboratory Results - last 24 hr 09/22/24 09/22/24 09/22/24 06:59 11:43 12:58 POC Whole Bld Glucose 113 H 161 H 179 H 09/22/24 09/22/24 17:00 20:09 POC Whole Bld Glucose 212 H 131 H PFSH Medical History Poor short term memory ICD (implantable cardioverter-defibrillator) in place (05/08/24) History of nephrolithiasis Chronic renal failure, stage 3a Overactive bladder Urinary incontinence Post laminectomy syndrome Mitral valve insufficiency Cardiomyopathy Chronic HFrEF (heart failure with reduced ejection fraction) Nonsustained paroxysmal ventricular tachycardia Mild claudication Recurrent falls Spinal stenosis Tinnitus Diabetes HLD (hyperlipidemia) Depression Incomplete bladder emptying Hayfever (1999) Shoulder pain (2011) Fracture (1951) Chronic back pain (1989) Hepatitis A (1963) Melanoma (1987) Gilbert's syndrome Femur fracture (1965) Primary osteoarthritis of both hips (08/30/15) Polymyalgia rheumatica (08/30/15) Type 2 diabetes mellitus without complication (06/05/15) Benign prostatic hyperplasia with urinary obstruction (03/25/15) Peripheral vascular disease (2009) Coronary artery disease involving [place] coronary artery of [place] heart without angina pectoris (1995) Essential hypertension Mixed hyperlipidemia Surgical History History of lumbar spinal fusion (~02/2024) Hx of laminectomy (~12/2023) History of bilateral cataract extraction History of coronary artery stent placement (07/29/18) History of orthopedic surgery (1965) Status post appendectomy (1956) Status post coronary artery bypass graft (1995) Family History Father Colon cancer Prostate enlargement Bladder cancer History of hip surgery Pneumonia History of prostate surgery Mother Diabetes mellitus Heart disease Hypertension High cholesterol Osteoporosis History of cataract surgery H/O heart bypass surgery Arthritis Grandfather Arthritis Prostate cancer Colon cancer Deaf Legally blind Grandmother Diabetes mellitus Hypertension Angina pectoris Heart disease Osteoporosis Social History marital status: number of children: 0 household members: spouse lives independently: Yes caregiver/support person: No housing: house pets and animals: Yes education level: other occupational status: other 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 Postop day 1. Status post right total hip arthroplasty-continued postoperative management as per Orthopedic surgery. Presume physical therapy etcetera today. Labs still pending regarding hemoglobin hematocrit etcetera 2. Ischemic cardiomyopathy with history of congestive heart failure-patient appears to be probably euvolemic at this point. Still awaiting labs. No change in meds for now 3. Diabetes-adequate control for now. Continue with carb consistent diet as well as insulin coverage as necessary 4. Hypertension-adequate control with excellent blood pressure numbers on current medications. No change for today 5. Disposition-disposition will depend on patient's functional ability as he works with skilled therapies over the next 24-48 hours Time-Based Coding :: [TOTAL MINUTES] spent with patient and on the chart (including review of chart, obtaining history, exam, reviewing outside data, placing orders, documenting exam and treatment plan, and counseling patient) on [DATE]. [facility] [facility] [employer] Document charge(s): Yes Charge Codes Subsequent inpatient/observation care: [id number]
[2024-09-23 08:00] VITALS: BP 121/74; PULSE 86; RESP 18; TEMP 36.4; O2SAT 93
[2024-09-23] MEDS: OXYCODONE IR 5 MG TABLET PO ×5 (08:10→21:04)
[2024-09-23] MEDS: PANTOPRAZOLE DR 40 MG TABLET PO ×2 (08:10→21:04)
[2024-09-23] MEDS: FAMOTIDINE 20 MG TABLET PO ×2 (08:10→21:04)
[2024-09-23] MEDS: TAMSULOSIN 0.4 MG CAPSULE PO ×2 (08:10→21:03)
[2024-09-23] MEDS: DOCUSATE 100 MG CAPSULE PO ×2 (08:10→21:04)
[2024-09-23] MEDS: ASPIRIN EC 81 MG TABLET PO ×2 (08:10→21:04)
[2024-09-23] MEDS: ACETAMINOPHEN 325 MG TABLET 650 MG PO ×2 (08:11→17:25)
[2024-09-23] MEDS: SERTRALINE 50 MG TABLET 150 MG PO (08:16)
[2024-09-23] MEDS: TORSEMIDE 10 MG TABLET 20 MG PO (08:16)
[2024-09-23] MEDS: FOLIC ACID 1 MG TABLET PO (08:16)
[2024-09-23] MEDS: OXYBUTYNIN 5 MG ER TAB 10 MG PO (08:17)
[2024-09-23] MEDS: MAGNESIUM OXIDE 400 MG TABLET PO ×2 (08:17→21:04)
[2024-09-23] MEDS: INSULIN LISPRO 100 UNIT/ML 3ML VIAL SUBCUT ×3 (08:25→17:22)
[2024-09-23 09:33] LABS: Hematocrit 34.4 % (41-53); Hemoglobin 11.2 g/dL (13.5-17.5)
[2024-09-23 09:59] LABS: Blood Urea Nitrogen 21 mg/dL (9-20); Calcium 8.7 mg/dL (8.4-10.2); Carbon Dioxide 18 mmol/L (22-32); Chloride 106 mmol/L (98-107); Estimated Glomerular Filt Rate > 60 mL/min (>60); Glucose 180 mg/dL (70-99); HEMOLYSIS < 15 (0-50); Magnesium 2.0 mg/dL (1.6-2.3); NT-proBNP (BNP-Adult 18+) 1160 pg/mL (<450); Potassium 4.9 mmol/L (3.4-5.1); Sodium 135 mmol/L (137-145)
--- NOTE | 2024-09-23 11:30 | PT.IPTN ---
Current Diagnoses Unilateral post-traumatic osteoarthritis, right hip (09/22/24) Surgery Performed Operation Date: 09/22/24 07:45 Actual Procedures p Total Hip Arthroplasty, Cemented, Posterior(Right) - Sarah Osei MD Physical Therapy Treatment Note M2 PT-IP Current Condition Start: 09/22/24 16:36 Freq: NEEDED Status: Active Protocol: Document 09/22/24 15:20 AB (Rec: 09/22/24 16:52 AB [id number]) Physical Therapy Current Condition Current Condition Evaluation Date 09/22/24 Treatment Diagnosis s/p R KITTY posterior; difficulty in walking Onset Date 09/22/24 M3 PT-IP Subjective Start: 09/22/24 16:36 Freq: NEEDED Status: Active Protocol: Document 09/23/24 11:30 AB (Rec: 09/23/24 12:32 AB [id number]) Subjective Physical Therapy Visit Type Type Treatment Note Visit Start Time 11:30 Visit Stop Time 12:05 Number of WELFARE INVESTIGATOR Visits 0 Physical Therapy Visit Comments Patient Comments agreeable to do PT Therapy Pain Assessment Pain When Pain Assessed At Rest Pain Present Pain Present Pain Reported Location Right Hip Intensity 5 Scale Used Numeric (0 - 10) Pain Behaviors Guarding,Holding Area Pain Management Apply Cold,Distraction,Modification of Treatment,Re- Techniques positioning,Timing of Activity with Medications M4 PT-IP Mobility and Gait Start: 09/22/24 16:36 Freq: NEEDED Status: Active Protocol: Document 09/23/24 11:30 AB (Rec: 09/23/24 12:32 AB [id number]) PT-Bed Mobility Assessment Supine to Sit Supine to Sit Maximum Assistance,1 Person Assistance,Head of Bed Elevated,Bedrails PT-Transfer Assessment Sit to and From Stand Sit to and from Maximum Assistance,1 Person Assistance,2 Person Stand Assistance,Use of Upper Extremities Equipment Transfer Assistive Gait Belt,Front Wheeled Walker Device Orthotic/Prosthetic No Devices or Brace: Transfers Transfer Destination Chair Transfer Technique ambulated Transfer Ability Level of Assist Moderate Assistance,1 Person Assistance,Use of Upper Extremities Comments Mobility Comments pt in bed and spouse in room. spouse stated that she cannot assist pt at home. pt and spouse wants pt to go to SNF. reviewed hip precautions with pt and pt only recalled 1 /3. completed supine to sit max A and max cues with HOB elevated. sit to stand from EOB x 4 attempts needing max A x 1-2 to be able to stand up. pt ambulated in room ~ 20 ft mod A and max cues. pt needed encouragement to ambulate more. pt agreed to stay up on chair. positioned pt on chair. call light and table placed within reach. pt required max cues for precautions and safety with all tasks. pt and spouse has concerns about SNF placement. pt stated that he has a good insurance and SNF should be covered. informed rn case management to address pt and spouse 's concerns. Gait Assessment Gait Gait Assistance Moderate Assistance Required: Distance (Feet) 20 Able to Maintain Yes Weight Bearing Status During Gait Assistive Devices Assistive Device Gait Belt,Front Wheeled Walker Orthotic/Prosthetic No Devices or Brace: Gait Deviations General Gait Pattern Decreased Stride Length,Decreased Feet Clearance,Step- to Gait Factors Limiting Gait Function Factors Limiting Decreased Activity Tolerance,Decreased Strength, Gait Function Difficulty Following Directions,Limited Range of Motion ,Pain,Poor Balance,Poor Safety Awareness M5 PT-IP Objective Assessments Start: 09/22/24 16:36 Freq: NEEDED Status: Active Protocol: Document 09/22/24 15:20 AB (Rec: 09/22/24 16:52 AB [id number]) Orientation Orientation/Cognition Level of Alertness Alert Orientation Name,Place,Situation Safety Awareness Decreased Safety Awareness Memory Description No Deficits Noted Gross Range of Motion Lower Extremity ROM Assessment Within Functional Limits Strength Lower Extremity Strength Assessment Right Impaired Hip 3-/5 Knee 3+/5 Coordination Assessment Gross Coordination Gross Coordination WNL Sensation Assessment Sensation Gross Sensation WNL Muscle Tone Muscle Tone WNL Yes M6 PT-IP Treatment Start: 09/22/24 16:36 Freq: NEEDED Status: Active Protocol: Document 09/23/24 11:30 AB (Rec: 09/23/24 12:32 AB [id number]) Physical Therapy Treatment Exercises Exercises Heel Slides Education Education Provided Precautions,Safety M7 PT-IP Assessment and Plan Start: 09/22/24 16:36 Freq: NEEDED Status: Active Protocol: Document 09/23/24 11:30 AB (Rec: 09/23/24 12:32 AB [id number]) PT Summary Assessment and Plan Potential Rehabilitation Fair Potential Summary Impairments Pain,ROM,Strength,Balance,Coordination,Sensation,Tone, Cognition,Bed Mobility,Transfers,Gait,Activity Tolerance Progress Towards Slow Progress due to Pain,Slow Progress due to Activity Goals Tolerance,Slow Progress - Other Assessment Summary pt requiring max A with bed mobility, max A x 1-2 for sit to stand and mod A for ambulation using FWW. pt only tolerated ~ 20 ft of ambulation using fWW with c/o hip pain and fatigue. pt will require 24/7 assist and will need SNF rehab to improve overall strength and mobility. Goals Bed Mobility Goal Standby Assistance Transfer Goal Standby Assistance,Front Wheeled Walker Gait Goal Standby Assistance,Front Wheel Walker Gait Distance 100 Other Goals improve bed mobility, transfers, ambulation using FWW 150 ft mod I up/down 2 steps L rail ascending SBA Days to Meet Goals 10 Frequency of Treatment Frequency Of Twice a Day Treatment Treatment Plan Physical Therapy Bed Mobility Training,Transfer Training,Gait Training, Treatment Plan Therapeutic Exercise,Balance Retraining,Post Op Education,Discharge Planning,Hot or Cold Pack, Neuromuscular Re-ed,Coordination Retraining,Manual Therapy Precautions Posterior Hip No Hip Flexion > 90 degrees,No Hip Internal Rotation,No Precautions Hip Adduction Weight Bearing Status Weight Bearing Weight Bear as Tolerated Status Allowed Weight RLE WBAT Bearing Amount ( enter % or #) (%) Recommendations To Nursing Amount of Assist 2 Person Assist Needed Discharge Recommendations PT Discharge SNF Rehab Recommendations Transportation Needs Wheelchair/Cabulance at Discharge - PT assist 1-2
--- NOTE | 2024-09-23 12:12 | CM.DANOTE ---
Initial DCP Assessment Visit Note Reviewed EMR and team rounds for pt's medical status and updates. Met with pt/spouse at bedside to introduce self and role, pt was found to be alert/oriented, and anxious about not being able to mobilize without 2-person max assist. He is requesting SNF rehab. Pt resides modified independently in his own home w/spouse here in [place]. SNF rehab will tranport him at d/c, anticipated for 09/26/24. Payor: Medicare Attending: Dr. Osei Pt is a 84 year-old M post-op day 1 from a R-KITTY. Pt's pain was well managed, however he is not ambulating well, and will need a longer recovery time in rehab as opposed to the original plan to d/c home same day. Pt has a hx of worsening R-hip pain, and has had several back surgeries over the last few years. He has been utilizing OP PT for all prior surgery recovery needs. Preference is [facility], will send referral and clinicals within the next day. Monitoring for any further evolving d/c needs. Discharge Planning/Care Management CM Discharge Assessment Start: 09/22/24 06:37 Freq: Status: Active Protocol: Document 09/23/24 12:01 DPL (Rec: 09/23/24 12:04 DPL [id number]) Discharge Planning Assessment Assigned Discharge NASIM Suero Ems Instructor Advance Directives? Yes Advance Directives Yes on File History Provided By Patient,Significant Other,Medical Record Has Patient been No admitted in last 30 days? Prior Living House Arrangements Household Members spouse Type of Drives own vehicle transporation used prior to admit Independent with ADL No: Modified independent with a walker/cane. 's Is patient alert and Yes oriented? Needs Assistance Home Chores / Shopping With Caregiver for No Another DME Already Rented / Elevated Toilet Seat,FWW / Walker,Cane Owned Patient/Family [facility] Facility,OP PT Therapy Preference Barriers to Yes Discharge Comment This was an ambulatory surgery. Pt was unable to mobilize independently and was a 2-person max assist with therapies, will now need SNF rehab. Eligible . Discharge Plan [facility] Facility Transportation Facility Arrangement Referrals Initiated [facility] If patient plan is No SNF: Has PASSR been completed? Medicare Choice List Yes Provided Medicare choice list patient reviewed on electronic tablet with Whiteboard Updated Yes in Patient Room with name and ext. # of Cloud Architect Review Status In Process Please Provide Date 09/23/24 Initial DC Assessment Was Performed Pre-Anesthesia Assessment Start: 09/07/24 09:54 Freq: Status: Active Protocol: Document 09/07/24 09:54 CAB (Rec: 09/07/24 10:54 CAB [id number]) Pre-Anesthesia Assessment PAC Comment Phone assess 09/07/24 Preferred Name Billy Patient Information Phone Assessment Reviewed Via Assessment Completed Patient With Diagnostic Results BMP/CMP,CBC,EKG Comment Labs/EKG @ [facility] 07/25/24 Primary Care Matt Medina Provider Seen Specialist in Yes Last 12 Months Specialist Seen Wire Annealer,Orthopedist,Urologist Primary Language Angolan Preferred Language Angolan Aircraft Fueler Required No Height 182.88 cm Weight 98.883 kg Body Mass Index (BMI 29.5 ) Hearing Ability Normal Visual Assist Magnifying Glass Dentition Type Teeth, Natural Present,Teeth, Missing,Dental Implants Barriers to Learning Memory Comment Short term memory problems Hx Anesthesia No Reactions Hx Family Anesthesia No Reaction Hx Malignant No Hyperthermia Hx Blood No Transfusions Hx Blood Transfusion No Reaction Anesthesia Review Yes: Surgeon requested re: Cardiac history Requested Grass Farmer No alcohol intake former Smoking Status Former smoker how long ago did Quit in his early 30's patient quit smoking Substance Use Type [ does not use #R] Pain Present Pain Reported Musculoskeletal Abnormal Gait,Back Pain,Difficulty Walking,Joint Pain Symptoms History of Falling ( Yes Recent or History of ) Patient is No completely paralyzed or completely immobile Prosthesis or Cane,Front Wheel Walker Orthotic Device Mental Status Oriented to own ability Is patient on oxygen No ? Does patient have No XIE/SOB Hx Sleep Apnea No CPAP/BIPAP use not prescribed Currently Taking a Yes: Carvedilol Beta Jana Can You Climb a Yes Flight of Stairs Without SOB Hx Chest Pain No Hx SOB No Hx Syncope or No Dizziness Anti-Coagulant Yes: ASA 81mg-advised to hold [address] Medina Therapy Has a Wire Annealer Yes: Visit 06/09/[address] Valderrama @ [facility] Hx Pacemaker/ICD Yes: ICD Pacemaker Rep No: pacer form scanned and in surgery folder Required? Cardiac Clearance No Received Comment Cardiac records scanned and in surgery folder Diet Type At Home Low Carb Dysphagia No Gastrointestinal Constipation,Reflux Symptoms Chronic UTI No Bladder Pattern Frequency,Urgency Urinary Catheter No Present Hx Urinary Self No Catheterization Diabetes Yes HgbA1C 6.2 Date 07/25/24 Presence of External Yes: bilat eye lens, CARDIAC STENT X3, ICD or Internal Medical Devices Month and year 2022 received flu vaccine Received a COVID Yes vaccine? Marital Status Lives With spouse Current Living House Arrangements Number of Floors ( One Floor Floors) Support System Spouse Does the Patient Yes Have Assistance After Surgery Patient Discharge Return Home Plan Description Comment Pt not advised on length of stay by surgeon Feels Safe in Yes Current Environment Been Physically Hurt No or Threatened By a Person in Current Environment Do you have thoughts None of harming yourself or others? Are you currently No considering suicide? Do you have a plan No Plan to hurt yourself or others? Do You Have Any No Spiritual Beliefs That May Affect Your HC Choices? Do You Have Any No Cultural Practices That May Affect Your HC Choices? Who Can We Speak to Family, friends About Patient's Care Identifying Code for Declines to issue Release of Patient Information Health Care Proxy/ Vicky Barbour () Next of Kin Health Care Proxy [phone] Phone Number Emergency Contact Vicky Barbour Name Emergency Contact [phone] Phone Number Advance Directives? Yes Advance Directives Yes on File Power of Logistics Manager Yes Power of Logistics Manager Vicky Km Name Power of Logistics Manager [phone] Phone Number PAC Instructions Assistance for 24 hours post-op,Durable medical equipment,Medications to take/avoid,Nasal antibiotic,No ETOH/petroleum product on skin DOS,NPO,Post-op transportation,Pre-surgical wash,Sturdy shoes/ comfortable clothes,Do not bring valuables and remove jewelry Stop Bang Assessment Do you snore loudly No (louder than talking or loud enough to be heard through closed doors) Do you often feel Yes tired, fatigued or sleepy during the daytime Has anyone ever No observed you stop breathing while sleeping? Do you have, or are Yes you being treated for, high blood pressure Is your BMI more No than 35 kg/m2 Age over 50 Yes Estimated neck No circumference greater than 40cm or 16in Gender male Yes Result Negative
--- NOTE | 2024-09-23 14:00 | OT.IP.EVAL ---
Current Diagnoses Unilateral post-traumatic osteoarthritis, right hip (09/23/24) Surgery Performed Operation Date: 09/22/24 07:45 Actual Procedures p Total Hip Arthroplasty, Cemented, Posterior(Right) - Sarah Osei MD Past Medical History (Last Reviewed 09/22/24 @ 10:48 by Matt Medina MD) Benign prostatic hyperplasia with urinary obstruction (03/25/15) Cardiomyopathy Chronic back pain (1989) Chronic HFrEF (heart failure with reduced ejection fraction) Chronic renal failure, stage 3a Coronary artery disease involving [place] coronary artery of [place] heart without angina pectoris (1995) Depression Diabetes Essential hypertension Femur fracture (1965) Fracture (1951) Gilbert's syndrome Hayfever (1999) Hepatitis A (1963) History of nephrolithiasis HLD (hyperlipidemia) ICD (implantable cardioverter-defibrillator) in place (05/08/24) Incomplete bladder emptying Melanoma (1987) Mild claudication Mitral valve insufficiency Mixed hyperlipidemia Nonsustained paroxysmal ventricular tachycardia Overactive bladder Peripheral vascular disease (2009) Polymyalgia rheumatica (08/30/15) Poor short term memory Post laminectomy syndrome Primary osteoarthritis of both hips (08/30/15) Recurrent falls Shoulder pain (2011) Spinal stenosis Tinnitus Type 2 diabetes mellitus without complication (06/05/15) Urinary incontinence Surgical History (Last Reviewed 09/22/24 @ 10:48 by Matt Medina MD) History of bilateral cataract extraction History of coronary artery stent placement (07/29/18) History of lumbar spinal fusion (~02/2024) History of orthopedic surgery (1965) Hx of laminectomy (~12/2023) Status post appendectomy (1956) Status post coronary artery bypass graft (1995) Occupational Therapy Inpatient Evaluation/Re-Eval M1 PT/OT-IP Prior Functional Status Start: 09/22/24 16:36 Freq: NEEDED Status: Active Protocol: Document 09/23/24 14:00 [facility] (Rec: 09/23/24 14:19 [facility] Desktop) Medical Review Prior Functional Status Medical History Yes Reviewed Communication able to make needs known Mobility and Gait pt stated that he was modified independent with all mobilities and ambulation using a 4WW/SPC indoors and SPC outdoors; pt has h/o falls Activities of Daily Pt states able to do ADL needs but having more Living and IADL's difficulty. Social History Household Members spouse Living Arrangements House Number of Floors ( One Floor Floors) Number of Stairs To 2 steps L rail ascending to enter the house Enter/Railing? Home Environment Standard Height Toilet,Walk in Shower,Built-In Shower Seat Home Equipment Front Wheel Walker,Four Wheel Walker,Straight Cane, Raised Toilet Seat w/Armrests,Shower Seat with Backrest ,Hand Held Shower,Long Handled Shoe Horn,Work Checker,Sock Aid,Grab Bars In Shower M2 OT-IP Current Condition Start: 09/23/24 14:00 Freq: Status: Active Protocol: Document 09/23/24 14:00 [facility] (Rec: 09/23/24 14:19 [facility] Desktop) Occupational Therapy Current Condition Current Condition Evaluation Date 09/23/24 Treatment Diagnosis S/P R KITTY posterior Diagnosis Onset Date 09/22/24 Post Operative Precautions Posterior Hip No Hip Flexion > 90 degrees,No Hip Internal Rotation,No Precautions Hip Adduction M3 OT- IP Subjective and Pain Start: 09/23/24 14:00 Freq: Status: Active Protocol: Document 09/23/24 14:00 [facility] (Rec: 09/23/24 14:19 [facility] Desktop) OT- Subjective Occupational Therapy Visit Type Type Initial Evaluation Visit Start Time 13:20 Visit Stop Time 14:00 Occupational Therapy Visit Comments Patient Comments Pt agreed to get up. Patient/Caregiver TO get better and go to skilled rehab prior to going Goals home. OT Pain Assessment Pain When Pain Assessed At Rest Pain Present Pain Present Pain Reported Location Right Hip Intensity 3 Scale Used Numeric (0 - 10) M4 OT- IP ADL's Start: 09/23/24 14:00 Freq: Status: Active Protocol: Document 09/23/24 14:00 [facility] (Rec: 09/23/24 14:19 [facility] Desktop) OT [id number] Comments OT Self-Feeding Not at meal time. Comments OT ADL-Grooming Comments OT Grooming Comments Not performed. OT ADL-Oral Care Comments Oral Care Comments Not performed. OT ADL-Dressing General Eval Lower Body Dressing Maximum Assistance Ability Areas Needing Socks Assistance Comments OT Dressing Comments Initiated practice and education of excavator operator and sock aid. Pt needing MAX vc for how to use sock aid. OT ADL-Toileting Comments OT Toileting Pt not having to go at this time. Spoke of use of Comments urinal at night if needed. OT ADL-Bathing Comments OT Bathing Comments Not performed. M5 OT- IP IADL's Start: 09/23/24 14:00 Freq: Status: Active Protocol: Document 09/23/24 14:00 [facility] (Rec: 09/23/24 14:19 [facility] Desktop) OT-Instrumental Activities of Daily Living Home Safety Awareness Home Safety Comments Pt is a bit groggy and forgetful at this time. Meal Preparation Meal Preparation Caregiver Provides Assist Geophysical Prospector Geophysical Prospector Caregiver Provides Assist M6 OT- IP Functional Cognition Start: 09/23/24 14:00 Freq: Status: Active Protocol: Document 09/23/24 14:00 [facility] (Rec: 09/23/24 14:19 [facility] Desktop) Cognitive Factors Limiting Selfcare Function Cognitive Ability Level of Alertness Alert Patient Orientation Name,Place,Situation Attention Span Capable of Focused Attention,Capable of Sustained Ability Attention Ability to Follow Able to Follow One Step Commands with Increased Time, Commands Able to Follow One Step Commands with Repetition Memory Description Short Term Impaired Safety Awareness Decreased Recall of Precautions,Decreased Ability to Apply Precautions Cognitive Comments Cognitive Assessment Pt states has difficulty with his short term memory. Pt Comments not able to recall any on his hip precautions and having to repeat them multiple times and still only able to recall 1/3 hip precaution. Having to explain his precautions and reasonings why it would be best to get out from the right side of the bed. Pt wanting to get out on the left side as he usually does at home, however while pt getting out just about to crosss and turn his right leg in and having to stop pt. pt needing increased time to process commands at this time . Pt may benefit from SLUMS. OT- Vision and Hearing OT- Hearing Assessment OT- Hearing WFL Assessment OT- Vision Assessment Visual Acuity Glasses For Reading Visual Attentiveness WFL Occular Pursuits WFL M7 OT- IP Mobility and Balance Start: 09/23/24 14:00 Freq: Status: Active Protocol: Document 09/23/24 14:00 [facility] (Rec: 09/23/24 14:19 [facility] Desktop) OT- Bed Mobility Assessment Supine to Sit Supine to Sit Assist Maximum Assistance Sit to Supine Sit to Supine Assist Maximum Assistance OT-Transfer Assessment Sit to and From Stand Sit to and from Maximum Assistance,1 Person Assistance Stand Comments Mobility Comments Assist to help move his RLE in the bed and get his trunk upright. MAX AX 1 to stand to the FWW and MAX vc for safety for hand placement. Pt able to take a few side steps to the head of the bed with MODA X 1 with FWW for balance. BP supine 110/71 and sitting 111/70. OT- Balance Assessment Sitting Balance and Reactions Static Sitting Good Balance Ability Dynamic Sitting Fair Balance Ability Standing Balance and Reactions Static Standing Poor Balance Ability Dynamic Standing Poor Balance Ability M8 OT- IP Objective Assessments Start: 09/23/24 14:00 Freq: Status: Active Protocol: Document 09/23/24 14:00 [facility] (Rec: 09/23/24 14:19 [facility] Desktop) OT Gross Range of Motion Upper Extremity Range of Motion Assessment Within Functional Limits OT Strength Upper Extremity Strength Assessment Right Impaired M9 OT- IP Assessment and Plan Start: 09/23/24 14:00 Freq: Status: Active Protocol: Document 09/23/24 14:00 [facility] (Rec: 09/23/24 14:19 [facility] Desktop) OT Summary Assessment and Plan Potential Rehabilitation Good Potential Analytic Complexity Low at Evaluation Summary OT Impairments Pain,Strength,Balance,Functional Cognition,Functional Mobility,Self-Feeding,Grooming,Dressing,Toileting, Bathing,Toilet Transfers Progress Towards Slow Progress due to Pain,Slow Progress due to Activity Goals Tolerance,Slow Progress due to Cognition Assessment Summary Pt low complexity and main barriers are steps, pain, having having difficulty with his STM and be able to recall and incorporate his hip precautions for ADL and mobility needs. Pt will greatly benefit from skilled rehab to go over and incorporate his hip precautions for ADL and mobility needs. AT this time pt needing 1-2 person to stand with the FWW. Goals Self-Feeding Goal Independent Grooming Goal Independent Dressing Goal Independent,Long Handled Shoe Horn,Work Checker,Sock Aid Toileting Goal Independent Bathing Goal Minimal Assistance Toilet Transfer Goal Standby Assistance Shower Transfer Goal Contact Guard Assistance Days to Meet Goals 15 Frequency of Treatment Other frequency 5x/week Treatment Plan OT Treatment Plan ADL Training,Functional Cognition Training,Functional Mobility,Patient/Family Education,Discharge Planning Other Treatment Practice LB dressing equipment. Transfer with FWW to [facility] and BSC with MODA X2 with FWW. Next Treatment Focus Discharge Recommendations OT Discharge SNF Rehab Recommendations Transportation Needs Wheelchair/Cabulance at Discharge
--- NOTE | 2024-09-23 14:45 | PT.IPTN ---
Current Diagnoses Unilateral post-traumatic osteoarthritis, right hip (09/23/24) Surgery Performed Operation Date: 09/22/24 07:45 Actual Procedures p Total Hip Arthroplasty, Cemented, Posterior(Right) - Sarah Osei MD Physical Therapy Treatment Note M2 PT-IP Current Condition Start: 09/22/24 16:36 Freq: NEEDED Status: Active Protocol: Document 09/22/24 15:20 AB (Rec: 09/22/24 16:52 AB [id number]) Physical Therapy Current Condition Current Condition Evaluation Date 09/22/24 Treatment Diagnosis s/p R KITTY posterior; difficulty in walking Onset Date 09/22/24 M3 PT-IP Subjective Start: 09/22/24 16:36 Freq: NEEDED Status: Active Protocol: Document 09/23/24 14:45 AB (Rec: 09/23/24 16:26 AB [id number]) Subjective Physical Therapy Visit Type Type Treatment Note Visit Start Time 14:45 Visit Stop Time 15:20 Number of LOCKSTITCH LINING SETTER Visits 0 Physical Therapy Visit Comments Patient Comments agreeable to do PT Therapy Pain Assessment Location Right Hip Intensity 5 Scale Used increases with mobility Pain Behaviors Guarding,Holding Area,Wincing Pain Management Distraction,Modification of Treatment,Re-positioning, Techniques Timing of Activity with Medications M4 PT-IP Mobility and Gait Start: 09/22/24 16:36 Freq: NEEDED Status: Active Protocol: Document 09/23/24 14:45 AB (Rec: 09/23/24 16:26 AB [id number]) PT-Bed Mobility Assessment Supine to Sit Supine to Sit Maximum Assistance,1 Person Assistance Sit to Supine Sit to Supine Maximum Assistance,1 Person Assistance PT-Transfer Assessment Sit to and From Stand Sit to and from Maximum Assistance,1 Person Assistance,2 Person Stand Assistance,Use of Upper Extremities Equipment Transfer Assistive Gait Belt,Front Wheeled Walker Device Orthotic/Prosthetic No Devices or Brace: Transfers Transfer Destination Chair Transfer Technique ambulated Transfer Ability Level of Assist Moderate Assistance,1 Person Assistance,Use of Upper Extremities Comments Mobility Comments pt in bed and agreeable to do PT. reviewed posterior hip precautions and pt recalled 1/3. pt completed supine to sit max A and max cues. sit to stand from EOB x 3 attempts to be able to stand requiring max Ax 1-2 and max cues. pt ambulated ~ 10 ft using FWW mod A and c/o dizziness needing to sit on the chair. max A for controlled descent to chair with max cues. BP checked: 127/74. O2 sat: 97% and [place]: 86. pt requesting to go back to bed. sit to stand from chair max A and max cues and was able to walk to bed using FWW mod A. sit to supine max A and max cues. positioned pt on the bed. call light and table placed within reach. M5 PT-IP Objective Assessments Start: 09/22/24 16:36 Freq: NEEDED Status: Active Protocol: Document 09/22/24 15:20 AB (Rec: 09/22/24 16:52 AB [id number]) Orientation Orientation/Cognition Level of Alertness Alert Orientation Name,Place,Situation Safety Awareness Decreased Safety Awareness Memory Description No Deficits Noted Gross Range of Motion Lower Extremity ROM Assessment Within Functional Limits Strength Lower Extremity Strength Assessment Right Impaired Hip 3-/5 Knee 3+/5 Coordination Assessment Gross Coordination Gross Coordination WNL Sensation Assessment Sensation Gross Sensation WNL Muscle Tone Muscle Tone WNL Yes M6 PT-IP Treatment Start: 09/22/24 16:36 Freq: NEEDED Status: Active Protocol: Document 09/23/24 14:45 AB (Rec: 09/23/24 16:26 AB [id number]) Physical Therapy Treatment Education Education Provided Precautions,Safety M7 PT-IP Assessment and Plan Start: 09/22/24 16:36 Freq: NEEDED Status: Active Protocol: Document 09/23/24 14:45 AB (Rec: 09/23/24 16:26 AB [id number]) PT Summary Assessment and Plan Potential Rehabilitation Fair Potential Summary Impairments Pain,ROM,Strength,Balance,Coordination,Sensation,Tone, Cognition,Bed Mobility,Transfers,Gait,Activity Tolerance Progress Towards Slow Progress due to Pain,Slow Progress due to Activity Goals Tolerance,Slow Progress - Other Assessment Summary pt continues to require max A 1-2 for sit to stand and will need SNF rehab to improve improve mobility independence. Goals Bed Mobility Goal Standby Assistance Transfer Goal Standby Assistance,Front Wheeled Walker Gait Goal Standby Assistance,Front Wheel Walker Gait Distance 100 Other Goals improve bed mobility, transfers, ambulation using FWW 150 ft mod I up/down 2 steps L rail ascending SBA Days to Meet Goals 10 Frequency of Treatment Frequency Of Twice a Day Treatment Treatment Plan Physical Therapy Bed Mobility Training,Transfer Training,Gait Training, Treatment Plan Therapeutic Exercise,Balance Retraining,Post Op Education,Discharge Planning,Hot or Cold Pack, Neuromuscular Re-ed,Coordination Retraining,Manual Therapy Precautions Posterior Hip No Hip Flexion > 90 degrees,No Hip Internal Rotation,No Precautions Hip Adduction Other Precautions falls Weight Bearing Status Weight Bearing Weight Bear as Tolerated Status Allowed Weight RLE WBAT Bearing Amount ( enter % or #) (%) Recommendations To Nursing Amount of Assist 2 Person Assist Needed Discharge Recommendations PT Discharge SNF Rehab Recommendations Transportation Needs Wheelchair/Cabulance at Discharge - PT assist 1-2
[2024-09-23 20:00] VITALS: BP 119/77; PULSE 89; RESP 16; TEMP 36.4; O2SAT 92
--- NOTE | 2024-09-23 20:33 | PM.PNPO.1 ---
Subjective Subjective Interval history: He worked hard with physical therapy today but he notes that he had fatigue but did not have any specific chest pain or shortness of breath. 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 He notes his hip pain is adequately controlled. Exam Vital Signs (past 8 hours): Oxygen Delivery Method Room Air Oxygen Flow Rate 0 Narrative Exam Narrative: Resting comfortably in bed, abdomen benign, cor regular rate and rhythm, right lower extremity dressing intact, calf soft distally, able to fire his toe flexors and extensors, minimal pain with gentle range of motion right hip Objective Labs 09/23/24 09:11 09/23/24 09:11 Labs: Laboratory Results - last 24 hr 09/23/24 09/23/24 09/23/24 07:38 09:11 11:14 Hgb 11.2 L Hct 34.4 L Sodium 135 L Potassium 4.9 Chloride 106 Carbon Dioxide 18 L BUN 21 H Creatinine 1.20 Estimated GFR > 60 BUN/Creatinine Ratio 17.5 Glucose 180 H POC Whole Bld Glucose 132 H 208 H Calcium 8.7 Magnesium 2.0 NT-Pro-B Natriuret Pep 1160 H 09/23/24 09/23/24 16:47 19:34 Hgb Hct Sodium Potassium Chloride Carbon Dioxide BUN Creatinine Estimated GFR BUN/Creatinine Ratio Glucose POC Whole Bld Glucose 160 H 190 H Calcium Magnesium NT-Pro-B Natriuret Pep PFSH Medical History Poor short term memory ICD (implantable cardioverter-defibrillator) in place (05/08/24) History of nephrolithiasis Chronic renal failure, stage 3a Overactive bladder Urinary incontinence Post laminectomy syndrome Mitral valve insufficiency Cardiomyopathy Chronic HFrEF (heart failure with reduced ejection fraction) Nonsustained paroxysmal ventricular tachycardia Mild claudication Recurrent falls Spinal stenosis Tinnitus Diabetes HLD (hyperlipidemia) Depression Incomplete bladder emptying Hayfever (2000) Shoulder pain (2011) Fracture (1951) Chronic back pain (1989) Hepatitis A (1963) Melanoma (1987) Gilbert's syndrome Femur fracture (1965) Primary osteoarthritis of both hips (08/30/15) Polymyalgia rheumatica (08/30/15) Type 2 diabetes mellitus without complication (06/05/15) Benign prostatic hyperplasia with urinary obstruction (03/25/15) Peripheral vascular disease (2009) Coronary artery disease involving [place] coronary artery of [place] heart without angina pectoris (1995) Essential hypertension Mixed hyperlipidemia Surgical History History of lumbar spinal fusion (~02/2024) Hx of laminectomy (~12/2023) History of bilateral cataract extraction History of coronary artery stent placement (07/29/18) History of orthopedic surgery (1965) Status post appendectomy (1956) Status post coronary artery bypass graft (1995) Family History Father Colon cancer Prostate enlargement Bladder cancer History of hip surgery Pneumonia History of prostate surgery Mother Diabetes mellitus Heart disease Hypertension High cholesterol Osteoporosis History of cataract surgery H/O heart bypass surgery Arthritis Grandfather Arthritis Prostate cancer Colon cancer Deaf Legally blind Grandmother Diabetes mellitus Hypertension Angina pectoris Heart disease Osteoporosis Social History marital status: number of children: 0 household members: spouse lives independently: Yes caregiver/support person: No housing: house pets and animals: Yes education level: other occupational status: other 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: 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 travel history: other leisure activities: other Smoking Status: Former smoker Tobacco: How many years used: 20 Smokeless tobacco user: other quit status: quit date established second hand exposure: No alcohol intake: former substance use type: does not use and marijuana Assessment & Plan Post-op Postoperative Procedures: Procedures Operation Date: 09/22/24 07:45 Actual Procedure Side Surgeon p Total Hip Arthroplasty, Cemented, Posterior Right Sarah Osei MD Postoperative day: 1 Postoperative status: doing well Postoperative status narrative: He was doing reasonably well after right total hip arthroplasty. He does have significant cardiac disease at his baseline. He is progressing. He needs additional physical therapy. Postoperative plan: routine post-op care Postoperative plan narrative: Continue physical therapy. Work on mobilizing to the best of his ability. He needs continued inpatient care partially related to his previous cardiac preoperative problems. I appreciate the input from Dr. Medina. He may need short-term rehab. Time Spent With Patient Time with patient: 15-24 minutes
[2024-09-23 21:03] VITALS: BP 114/77; PULSE 89
[2024-09-23] MEDS: ATORVASTATIN 20 MG TABLET 40 MG PO (21:03)
[2024-09-23] MEDS: Sacubitril-Valsartan [Entresto] 49-51 mg tab 0.5 EACH PO (21:03)
[2024-09-23] MEDS: GABAPENTIN 100 MG CAPSULE 200 MG PO (21:03)
--- NOTE | 2024-09-24 07:36 | PM.PN.IH.1 ---
Subjective Subjective Date Patient Seen: 09/24/24 Time Patient Seen: 07:36 Interval history: Up with physical therapy yesterday. They are recommending prison placement, but that was day 1 postop Respiratory status seems stable. Continues to deny any cardiovascular symptoms including chest pain palpitations orthopnea PND Vital signs have been stable Exam Vital Signs (past 8 hours): Oxygen Delivery Method Room Air Oxygen Flow Rate 0 Objective Labs 09/23/24 09:11 09/23/24 09:11 Labs: Laboratory Results - last 24 hr 09/23/24 09/23/24 09/23/24 07:38 09:11 11:14 Hgb 11.2 L Hct 34.4 L Sodium 135 L Potassium 4.9 Chloride 106 Carbon Dioxide 18 L BUN 21 H Creatinine 1.20 Estimated GFR > 60 BUN/Creatinine Ratio 17.5 Glucose 180 H POC Whole Bld Glucose 132 H 208 H Calcium 8.7 Magnesium 2.0 NT-Pro-B Natriuret Pep 1160 H 09/23/24 09/23/24 09/24/24 16:47 19:34 07:01 Hgb Hct Sodium Potassium Chloride Carbon Dioxide BUN Creatinine Estimated GFR BUN/Creatinine Ratio Glucose POC Whole Bld Glucose 160 H 190 H 165 H Calcium Magnesium NT-Pro-B Natriuret Pep PFSH Medical History Poor short term memory ICD (implantable cardioverter-defibrillator) in place (05/08/24) History of nephrolithiasis Chronic renal failure, stage 3a Overactive bladder Urinary incontinence Post laminectomy syndrome Mitral valve insufficiency Cardiomyopathy Chronic HFrEF (heart failure with reduced ejection fraction) Nonsustained paroxysmal ventricular tachycardia Mild claudication Recurrent falls Spinal stenosis Tinnitus Diabetes HLD (hyperlipidemia) Depression Incomplete bladder emptying Hayfever (2000) Shoulder pain (2011) Fracture (195) Chronic back pain (1989) Hepatitis A (1963) Melanoma (1987) Gilbert's syndrome Femur fracture (1965) Primary osteoarthritis of both hips (08/30/15) Polymyalgia rheumatica (08/30/15) Type 2 diabetes mellitus without complication (06/05/15) Benign prostatic hyperplasia with urinary obstruction (03/25/15) Peripheral vascular disease (2009) Coronary artery disease involving [place] coronary artery of [place] heart without angina pectoris (1995) Essential hypertension Mixed hyperlipidemia Surgical History History of lumbar spinal fusion (~02/2024) Hx of laminectomy (~12/2023) History of bilateral cataract extraction History of coronary artery stent placement (07/29/18) History of orthopedic surgery (1965) Status post appendectomy (1956) Status post coronary artery bypass graft (1995) Family History Father Colon cancer Prostate enlargement Bladder cancer History of hip surgery Pneumonia History of prostate surgery Mother Diabetes mellitus Heart disease Hypertension High cholesterol Osteoporosis History of cataract surgery H/O heart bypass surgery Arthritis Grandfather Arthritis Prostate cancer Colon cancer Deaf Legally blind Grandmother Diabetes mellitus Hypertension Angina pectoris Heart disease Osteoporosis Social History marital status: number of children: 0 household members: spouse lives independently: Yes caregiver/support person: No housing: house pets and animals: Yes education level: other occupational status: other 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 Postop day 2. Status post right total hip arthroplasty-continued postoperative management as per Orthopedic surgery. Continue with skilled therapies. Does seem likely to me he is going to require prison placement in part because he does not really have any assistance at home 2. Ischemic cardiomyopathy with history of congestive heart failure-patient appears to be probably euvolemic at this point. Continue to monitor urine output vital signs etcetera. Continue usual medications 3. Diabetes-adequate control for now, no changes. 4. Hypertension-adequate control with excellent blood pressure numbers on current medications. No change for today 5. Disposition-disposition will depend on patient's functional ability as he works with skilled therapies over the next 24-48 hours Time-Based Coding :: [TOTAL MINUTES] spent with patient and on the chart (including review of chart, obtaining history, exam, reviewing outside data, placing orders, documenting exam and treatment plan, and counseling patient) on [DATE]. PROFEE Oral Therapist Document charge(s): Yes Charge Codes Subsequent inpatient/observation care: [id number]
[2024-09-24 08:15] VITALS: BP 109/70; PULSE 87; RESP 16; TEMP 36.2; O2SAT 91
[2024-09-24] MEDS: INSULIN LISPRO 100 UNIT/ML 3ML VIAL SUBCUT ×3 (09:06→17:03)
[2024-09-24] MEDS: FAMOTIDINE 20 MG TABLET PO ×2 (09:07→20:59)
[2024-09-24] MEDS: PANTOPRAZOLE DR 40 MG TABLET PO ×2 (09:07→20:59)
--- NOTE | 2024-09-24 09:08 | PT.IPTN ---
Current Diagnoses Unilateral post-traumatic osteoarthritis, right hip (09/23/24) Surgery Performed Operation Date: 09/22/24 07:45 Actual Procedures p Total Hip Arthroplasty, Cemented, Posterior(Right) - Sarah Osei MD Physical Therapy Treatment Note M2 PT-IP Current Condition Start: 09/22/24 16:36 Freq: NEEDED Status: Active Protocol: Document 09/22/24 15:20 AB (Rec: 09/22/24 16:52 AB [id number]) Physical Therapy Current Condition Current Condition Evaluation Date 09/22/24 Treatment Diagnosis s/p R KITTY posterior; difficulty in walking Onset Date 09/22/24 M3 PT-IP Subjective Start: 09/22/24 16:36 Freq: NEEDED Status: Active Protocol: Document 09/24/24 08:35 MB (Rec: 09/24/24 09:08 MB Desktop) Subjective Physical Therapy Visit Type Type Treatment Note Visit Start Time 08:35 Visit Stop Time 08:55 Number of SHEAR GRINDER OPERATOR HELPER Visits 0 Physical Therapy Visit Comments Patient Comments Pt is agreeable to PT. Therapy Pain Assessment Pain When Pain Assessed At Rest Pain Present Pain Present Pain Reported Location Right Hip Intensity 5 Scale Used 4-5 Pain Behaviors Wincing Pain Management Distraction,Modification of Treatment,Re-positioning Techniques M4 PT-IP Mobility and Gait Start: 09/22/24 16:36 Freq: NEEDED Status: Active Protocol: Document 09/24/24 08:35 MB (Rec: 09/24/24 09:08 MB Desktop) PT-Bed Mobility Assessment Supine to Sit Supine to Sit Contact Guard Assistance,1 Person Assistance,Head of Bed Elevated,Bedrails Scooting Scooting to Edge of Contact Guard Assistance Bed PT-Transfer Assessment Sit to and From Stand Sit to and from Moderate Assistance,1 Person Assistance,Use of Upper Stand Extremities Equipment Transfer Assistive Gait Belt,Front Wheeled Walker Device Orthotic/Prosthetic No Devices or Brace: Transfers Transfer Destination Chair Transfer Technique Stepping Transfer Ability Level of Assist Moderate Assistance,1 Person Assistance,Use of Upper Extremities Comments Mobility Comments Pt recalls hip precautions stating, not bending over more than 90 deg and no crossing my legs. PT ed pt in no ER/IR and pivoting on feet and Dr. Osei order of no flexion past 70 deg and he can clarify with her on that. Increased time and cues and pt is able to get to the EOB to the left with rest breaks and heavy use of HOB rail and lower bed rail. PT cues pt to bend knee a little and then he is able to scoot right leg to the left without breaking 70 deg flexion and he does this in small movements to get to EOB. PT blocks feet and cues to push up from lower bed rail for STS. BP and HR in LUE: hook lying 109/65, 119; sitting EOB 115/66, 108 ; standing 112/67, 106. Pt is unable to move quickly to feet and so checked in sitting. Pt does report he is dizzy getting up. Gait Assessment Gait Gait Assistance Moderate Assistance,1 Person Assist Required: Distance (Feet) 2 Assistive Devices Assistive Device Gait Belt,Front Wheeled Walker Orthotic/Prosthetic No Devices or Brace: Gait Deviations General Gait Pattern Decreased Stride Length,Decreased Feet Clearance,Step- to Gait Factors Limiting Gait Function Factors Limiting Decreased Activity Tolerance,Decreased Strength, Gait Function Difficulty Following Directions,Limited Range of Motion ,Pain,Poor Balance,Poor Safety Awareness PT-Balance Assessment Sitting Balance and Reactions Static Sitting Good Balance Ability Dynamic Sitting Fair Balance Ability Standing Balance and Reactions Static Standing Fair Balance Ability Dynamic Standing Poor Balance Ability Device Used FWW M5 PT-IP Objective Assessments Start: 09/22/24 16:36 Freq: NEEDED Status: Active Protocol: Document 09/22/24 15:20 AB (Rec: 09/22/24 16:52 AB [id number]) Orientation Orientation/Cognition Level of Alertness Alert Orientation Name,Place,Situation Safety Awareness Decreased Safety Awareness Memory Description No Deficits Noted Gross Range of Motion Lower Extremity ROM Assessment Within Functional Limits Strength Lower Extremity Strength Assessment Right Impaired Hip 3-/5 Knee 3+/5 Coordination Assessment Gross Coordination Gross Coordination WNL Sensation Assessment Sensation Gross Sensation WNL Muscle Tone Muscle Tone WNL Yes M6 PT-IP Treatment Start: 09/22/24 16:36 Freq: NEEDED Status: Active Protocol: Document 09/24/24 08:35 MB (Rec: 09/24/24 09:08 MB Desktop) Physical Therapy Treatment Exercises Exercises Ankle Pumps,Quad Sets,Heel Slides Education Education Provided Precautions,Safety Other Treatments Other Treatment LAQ sitting up in chair Performed M7 PT-IP Assessment and Plan Start: 09/22/24 16:36 Freq: NEEDED Status: Active Protocol: Document 09/24/24 08:35 MB (Rec: 07/24/25 09:08 MB Desktop) PT Summary Assessment and Plan Potential Rehabilitation Fair Potential Status of Condition Evolving at Evaluation Summary Impairments Pain,ROM,Strength,Balance,Coordination,Cognition,Bed Mobility,Transfers,Gait,Activity Tolerance Progress Towards Slow Progress due to Pain,Slow Progress due to Activity Goals Tolerance,Slow Progress - Other Assessment Summary Pt progresses slowly towards goals. He does not require tactile assistance from PT to get OOB today but rather requires increased time and cues. He is mod A for transfer and to take a few steps. He reports dizziness with getting up this a.m. in setting of CHF and CM and his BP does not drop with mobility, though he moves slowly and so it is not checked within 2-3 minutes of getting onto feet. Goals Bed Mobility Goal Standby Assistance Transfer Goal Standby Assistance,Front Wheeled Walker Gait Goal Standby Assistance,Front Wheel Walker Gait Distance 100 Other Goals improve bed mobility, transfers, ambulation using FWW 150 ft mod I up/down 2 steps L rail ascending SBA Days to Meet Goals 10 Frequency of Treatment Frequency Of Once a Day Treatment Other frequency 1-2x/day Treatment Plan Physical Therapy Bed Mobility Training,Transfer Training,Gait Training, Treatment Plan Therapeutic Exercise,Balance Retraining,Post Op Education,Discharge Planning,Hot or Cold Pack, Neuromuscular Re-ed,Coordination Retraining,Manual Therapy Precautions Posterior Hip No Hip Internal Rotation,No Hip Adduction Precautions Other Precautions falls Dr. Osei posterior hip order states not to bend operated leg past 70 deg, ed pt that he can speak with her further about that if there are further questions Weight Bearing Status Weight Bearing Weight Bear as Tolerated Status Allowed Weight RLE WBAT Bearing Amount ( enter % or #) (%) Recommendations To Nursing Amount of Assist 2 Person Assist Needed Discharge Recommendations PT Discharge SNF Rehab Recommendations Transportation Needs Wheelchair/Cabulance at Discharge - PT assist 1-2
[2024-09-24] MEDS: MAGNESIUM OXIDE 400 MG TABLET PO ×2 (09:11→20:59)
[2024-09-24] MEDS: ASPIRIN EC 81 MG TABLET PO ×2 (09:11→20:59)
[2024-09-24 09:12] VITALS: BP 109/70; PULSE 85
[2024-09-24] MEDS: DOCUSATE 100 MG CAPSULE PO ×2 (09:12→20:56)
[2024-09-24] MEDS: FOLIC ACID 1 MG TABLET PO (09:12)
[2024-09-24] MEDS: TAMSULOSIN 0.4 MG CAPSULE PO ×2 (09:12→20:59)
[2024-09-24] MEDS: TORSEMIDE 10 MG TABLET 20 MG PO (09:12)
[2024-09-24] MEDS: ISOSORBIDE MONONITRATE ER 30 MG TABLET PO (09:12)
[2024-09-24] MEDS: OXYBUTYNIN 5 MG ER TAB 10 MG PO (09:13)
[2024-09-24] MEDS: SPIRONOLACTONE 25 MG TABLET PO (09:14)
[2024-09-24] MEDS: SERTRALINE 50 MG TABLET 150 MG PO (09:14)
[2024-09-24] MEDS: Sacubitril-Valsartan [Entresto] 49-51 mg tab 0.5 EACH PO ×2 (09:16→20:56)
--- NOTE | 2024-09-24 10:09 | PC.NURSE ---
Pt BP 109/70 this morning, pt normally 120s/80s. Asked MD Medina re: prescribed torsemide 10mg, carvedilol 6.25mg, and isosorbide mononitrate 30mg. MD Medina stated ok to give. Pt tolerated well, no reported symptoms, VSWNL.
--- NOTE | 2024-09-24 10:31 | CM.DPC ---
Addendum entered by NASIM Miller 09/24/24 13:47: [facility] [place], [place]26, and will transport at 11:30am. Original Note: DCP Cont. Reviewed EMR and team rounds for pt's status updates. Sent rehab referral to [facility] [place], per pt's preference. Monitoring for any further evolving needs prior to d/c.
[2024-09-24 10:32] VITALS: BP 122/70; PULSE 95; RESP 18; O2SAT 93
[2024-09-24] MEDS: ACETAMINOPHEN 325 MG TABLET 650 MG PO (12:42)
[2024-09-24] MEDS: OXYCODONE IR 10 MG TABLET PO (12:42)
--- NOTE | 2024-09-24 13:33 | PT-IP ANOTE ---
PT checks in on patient for a second treatment and he is back in bed after finishing up with OT and too tired for a second treatment. Con't PT efforts next date.
--- NOTE | 2024-09-24 13:38 | OT.IP.TRT ---
Current Diagnoses Unilateral post-traumatic osteoarthritis, right hip (09/23/24) Surgery Performed Operation Date: 09/22/24 07:45 Actual Procedures p Total Hip Arthroplasty, Cemented, Posterior(Right) - Sarah Osei MD Occupational Therapy Treatment Note M2 OT-IP Current Condition Start: 09/23/24 14:00 Freq: Status: Active Protocol: Document 09/23/24 14:00 [facility] (Rec: 09/23/24 14:19 [facility] Desktop) Occupational Therapy Current Condition Current Condition Evaluation Date 09/23/24 Treatment Diagnosis S/P R KITTY posterior Diagnosis Onset Date 09/22/24 Post Operative Precautions Posterior Hip No Hip Flexion > 90 degrees,No Hip Internal Rotation,No Precautions Hip Adduction M3 OT- IP Subjective and Pain Start: 09/23/24 14:00 Freq: Status: Active Protocol: Document 09/24/24 12:42 [facility] (Rec: 09/24/24 13:51 [facility] Desktop) OT- Subjective Occupational Therapy Visit Type Type Treatment Note Visit Start Time 12:42 Visit Stop Time 13:38 Occupational Therapy Visit Comments Patient Comments Pt agreed to practice LB dressing and bed mobility from the right side. Patient/Caregiver To get better. Goals OT Pain Assessment Pain When Pain Assessed During Mobility Pain Present Pain Present Pain Reported Location Right Hip Intensity 2 Scale Used Numeric (0 - 10) M4 OT- IP ADL's Start: 09/23/24 14:00 Freq: Status: Active Protocol: Document 09/24/24 12:42 [facility] (Rec: 09/24/24 13:51 [facility] Desktop) OT [id number] Comments OT Self-Feeding Not at meal time. Comments OT ADL-Grooming Comments OT Grooming Comments Not observed. OT ADL-Oral Care Comments Oral Care Comments Not observed. OT ADL-Dressing General Eval Lower Body Dressing Maximum Assistance Ability Areas Needing Underpants/Brief Assistance Comments OT Dressing Comments Able to practice use of the portable pinch riveter for brief management needs and still needing to help thread his RLE and pull up the brief over his hips. OT ADL-Toileting General Evaluation Toileting Ability Maximum Assistance Areas Needing Manage Clothing Assistance Comments OT Toileting Pt able to use the urinal while seated with assist to Comments hold the urinal in place and assist for brief management needs. OT ADL-Bathing Comments OT Bathing Comments Not performed. M5 OT- IP IADL's Start: 09/23/24 14:00 Freq: Status: Active Protocol: Document 09/23/24 14:00 [facility] (Rec: 09/23/24 14:19 [facility] Desktop) OT-Instrumental Activities of Daily Living Home Safety Awareness Home Safety Comments Pt is a bit groggy and forgetful at this time. Meal Preparation Meal Preparation Caregiver Provides Assist Customer Support Coordinator Customer Support Coordinator Caregiver Provides Assist M6 OT- IP Functional Cognition Start: 09/23/24 14:00 Freq: Status: Active Protocol: Document 09/24/24 12:42 [facility] (Rec: 09/24/24 13:51 [facility] Desktop) Cognitive Factors Limiting Selfcare Function Cognitive Ability Memory Description Short Term Impaired Safety Awareness Decreased Recall of Precautions,Decreased Ability to Apply Precautions Cognitive Comments Cognitive Assessment Pt able to recall 2/3 hip precautions and able to re- Comments educate pt for hip precautions for ADL and mobility needs. Able to show and demonstrate various scenarios of ADL and mobility so pt able to explain whether each activity in compliant or not with his hip precautions. M7 OT- IP Mobility and Balance Start: 09/23/24 14:00 Freq: Status: Active Protocol: Document 09/24/24 12:42 [facility] (Rec: 09/24/24 13:51 [facility] Desktop) OT- Bed Mobility Assessment Supine to Sit Supine to Sit Assist Moderate Assistance Sit to Supine Sit to Supine Assist Moderate Assistance OT-Transfer Assessment Sit to and From Stand Sit to and from Maximum Assistance,1 Person Assistance Stand Transfers Transfer Ability Moderate Assistance,Maximum Assistance Technique Transfer Destination Bed,Chair Transfer Technique Stand Step Pivot Devices Transfer Assistive Gait Belt,Large Based Quad Cane Devices Comments Mobility Comments Pt able to come to stand a little better today especially from the recliner. VC and assist to keep his RLE from internally rotating. MOD/MAX AX 1 to stand and once on his feet MODA x1 with FWW. At this time best for nursing to use two person assist for safety. OT- Balance Assessment Sitting Balance and Reactions Static Sitting Normal Balance Ability Dynamic Sitting Good Balance Ability Standing Balance and Reactions Static Standing Fair Balance Ability Dynamic Standing Fair Balance Ability M8 OT- IP Objective Assessments Start: 09/23/24 14:00 Freq: Status: Active Protocol: Document 09/23/24 14:00 [facility] (Rec: 09/23/24 14:19 [facility] Desktop) OT Gross Range of Motion Upper Extremity Range of Motion Assessment Within Functional Limits OT Strength Upper Extremity Strength Assessment Right Impaired M9 OT- IP Assessment and Plan Start: 09/23/24 14:00 Freq: Status: Active Protocol: Document 09/24/24 12:42 [facility] (Rec: 09/24/24 13:51 [facility] Desktop) OT Summary Assessment and Plan Potential Rehabilitation Good Potential Analytic Complexity Low at Evaluation Summary OT Impairments Pain,Strength,Balance,Functional Cognition,Functional Mobility,Self-Feeding,Grooming,Dressing,Toileting, Bathing,Toilet Transfers Progress Towards Progressing Toward Goals Goals Assessment Summary Pt able to participate in toileting, LB dressing, bed mobility and transfer today. Pt still needing extensive assist to stand and keep his RLE for internally rotating inward when coming to stand. ABle to practice getting off the right side and able to keep his RLE in better alignment. Pt requested to have the green pad removed as having difficulty to mobilize on it, suggested to nursing to have a bed sheet folded instead in needed to assist him with bed mobility needs. Pt to go to skilled rehab when medically stable. Goals Self-Feeding Goal Independent Grooming Goal Independent Dressing Goal Independent,Long Handled Shoe [place],Rail Specialist,Sock Aid Toileting Goal Independent Bathing Goal Minimal Assistance Toilet Transfer Goal Independent Shower Transfer Goal Standby Assistance Days to Meet Goals 15 Frequency of Treatment Other frequency 5x/week Treatment Plan OT Treatment Plan ADL Training,Functional Cognition Training,Functional Mobility,Patient/Family Education,Discharge Planning Other Treatment Stand at sink with FWW for grooming/oral care needs Recommendations and with RAMBO. Next Treatment Focus Discharge Recommendations OT Discharge SNF Rehab Recommendations Transportation Needs Wheelchair/Cabulance at Discharge
[2024-09-24 20:00] VITALS: BP 118/77; PULSE 84; RESP 16; TEMP 36.6; O2SAT 96
[2024-09-24 20:56] VITALS: BP 118/77; PULSE 84
[2024-09-24] MEDS: ATORVASTATIN 20 MG TABLET 40 MG PO (20:56)
[2024-09-24] MEDS: GABAPENTIN 100 MG CAPSULE 200 MG PO (20:59)
--- NOTE | 2024-09-24 21:14 | P.PN_ITS ---
Subjective Subjective Interval history: He made some progress with PT but still needs assistance to mobilize out of bed. He notes no nausea is not having any problems voiding. He had some pain but it is adequately controlled with pain pills. Exam Vital Signs (past 8 hours): - 09/24/24 20:56 Pulse Rate 84 Blood Pressure 118/77 Oxygen Delivery Method Room Air Oxygen Flow Rate 0 Narrative Exam Narrative: Resting comfortably in bed. Minimal pain with range of motion of his hip, dressing intact, calf soft, no swelling in bilateral lower extremities Objective Labs 09/23/24 09:11 09/23/24 09:11 Labs: Laboratory Results - last 24 hr 09/24/24 09/24/24 09/24/24 07:01 11:59 16:29 POC Whole Bld Glucose 165 H 190 H 207 H 09/24/24 19:57 POC Whole Bld Glucose 185 H PFSH Medical History Poor short term memory ICD (implantable cardioverter-defibrillator) in place (05/08/24) History of nephrolithiasis Chronic renal failure, stage 3a Overactive bladder Urinary incontinence Post laminectomy syndrome Mitral valve insufficiency Cardiomyopathy Chronic HFrEF (heart failure with reduced ejection fraction) Nonsustained paroxysmal ventricular tachycardia Mild claudication Recurrent falls Spinal stenosis Tinnitus Diabetes HLD (hyperlipidemia) Depression Incomplete bladder emptying Hayfever (1999) Shoulder pain (2011) Fracture (1951) Chronic back pain (1989) Hepatitis A (1963) Melanoma (1987) Gilbert's syndrome Femur fracture (1965) Primary osteoarthritis of both hips (08/30/15) Polymyalgia rheumatica (08/30/15) Type 2 diabetes mellitus without complication (06/05/15) Benign prostatic hyperplasia with urinary obstruction (03/25/15) Peripheral vascular disease (2009) 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) Essential hypertension Mixed hyperlipidemia Surgical History History of lumbar spinal fusion (~02/2024) Hx of laminectomy (~12/2023) History of bilateral cataract extraction History of coronary artery stent placement (07/29/18) History of orthopedic surgery (1965) Status post appendectomy (1956) Status post coronary artery bypass graft (1995) Family History Father Colon cancer Prostate enlargement Bladder cancer History of hip surgery Pneumonia History of prostate surgery Mother Diabetes mellitus Heart disease Hypertension High cholesterol Osteoporosis History of cataract surgery H/O heart bypass surgery Arthritis Grandfather Arthritis Prostate cancer Colon cancer Deaf Legally blind Grandmother Diabetes mellitus Hypertension Angina pectoris Heart disease Osteoporosis Social History marital status: number of children: 0 household members: spouse lives independently: Yes caregiver/support person: No housing: house pets and animals: Yes education level: other occupational status: other 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 travel history: other leisure activities: other Smoking Status: Former smoker Tobacco: How many years used: 20 Smokeless tobacco user: other quit status: quit date established second hand exposure: No alcohol intake: former substance use type: does not use and marijuana Assessment & Plan Post-op Postoperative Procedures: Procedures Operation Date: 09/22/24 07:45 Actual Procedure Side Surgeon p Total Hip Arthroplasty, Cemented, Posterior Right Sarah Osei MD Postoperative day: 2 Postoperative status: doing well Postoperative status narrative: He is doing okay postoperatively but he has fairly poor cardiac tolerance. He does require assistance to get up. Postoperative plan: routine post-op care Postoperative plan narrative: He likely would benefit from rehab. He needs continued physical therapy and continued nursing support. Anticipate that he will be stable enough to be discharged to rehab on Saturday.
[2024-09-25] MEDS: OXYCODONE IR 5 MG TABLET PO ×3 (01:14→23:14)
[2024-09-25] MEDS: ACETAMINOPHEN 325 MG TABLET 650 MG PO ×3 (05:51→20:28)
--- NOTE | 2024-09-25 07:39 | PM.PN.IH.1 ---
Subjective Subjective Date Patient Seen: 09/25/24 Time Patient Seen: 07:39 Interval history: Patient up with physical and occupational therapy yesterday. Still recommending halfway placement Current plan is for discharge to halfway on SaturdaySeptember [facility] at [facility] Vital signs have been okay. Blood pressure right around 110-120 systolic. O2 saturation acceptable. Exam Vital Signs (past 8 hours): Oxygen Delivery Method Room Air Oxygen Flow Rate 0 Objective Labs 09/23/24 09:11 09/23/24 09:11 Labs: Laboratory Results - last 24 hr 09/24/24 09/24/24 09/24/24 11:59 16:29 19:57 POC Whole Bld Glucose 190 H 207 H 185 H 09/25/24 07:24 POC Whole Bld Glucose 165 H PFS Medical History Poor short term memory ICD (implantable cardioverter-defibrillator) in place (05/08/24) History of nephrolithiasis Chronic renal failure, stage 3a Overactive bladder Urinary incontinence Post laminectomy syndrome Mitral valve insufficiency Cardiomyopathy Chronic HFrEF (heart failure with reduced ejection fraction) Nonsustained paroxysmal ventricular tachycardia Mild claudication Recurrent falls Spinal stenosis Tinnitus Diabetes HLD (hyperlipidemia) Depression Incomplete bladder emptying Hayfever (1999) Shoulder pain (2011) Fracture (1951) Chronic back pain (1989) Hepatitis A (1963) Melanoma (1987) Gilbert's syndrome Femur fracture (1965) Primary osteoarthritis of both hips (08/30/15) Polymyalgia rheumatica (08/30/15) Type 2 diabetes mellitus without complication (06/05/15) Benign prostatic hyperplasia with urinary obstruction (03/25/15) Peripheral vascular disease (2009) 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) Essential hypertension Mixed hyperlipidemia Surgical History History of lumbar spinal fusion (~02/2024) Hx of laminectomy (~12/2023) History of bilateral cataract extraction History of coronary artery stent placement (07/29/18) History of orthopedic surgery (1965) Status post appendectomy (1956) Status post coronary artery bypass graft (1995) Family History Father Colon cancer Prostate enlargement Bladder cancer History of hip surgery Pneumonia History of prostate surgery Mother Diabetes mellitus Heart disease Hypertension High cholesterol Osteoporosis History of cataract surgery H/O heart bypass surgery Arthritis Grandfather Arthritis Prostate cancer Colon cancer Deaf Legally blind Grandmother Diabetes mellitus Hypertension Angina pectoris Heart disease Osteoporosis Social History marital status: number of children: 0 household members: spouse lives independently: Yes caregiver/support person: No housing: house pets and animals: Yes education level: other occupational status: other 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 Postop day 2. Status post right total hip arthroplasty-continued postoperative management as per Orthopedic surgery. Continue with skilled therapies. I agree halfway placement of seems like the most reasonable option for patient. 2. Ischemic cardiomyopathy with history of congestive heart failure-patient appears to be probably euvolemic at this point. Continue to monitor urine output vital signs etcetera. Continue usual medications 3. Diabetes-adequate control for now, no changes. 4. Hypertension-adequate control with excellent blood pressure numbers on current medications. No change for today 5. Disposition-plan for discharge to halfway on SaturdaySeptember 26 as per care management notes. I have addressed his routine home meds in the discharge routine in preparation for discharge. (basically continuing all of his usual medications, except for the aspirin which will be determined pending orthopedic surgery's orders for VTE prophylaxis) Time-Based Coding :: [TOTAL MINUTES] spent with patient and on the chart (including review of chart, obtaining history, exam, reviewing outside data, placing orders, documenting exam and treatment plan, and counseling patient) on [DATE]. PROFEE Intermediate Project Manager Document charge(s): Yes Charge Codes Subsequent inpatient/observation care: [id number]
[2024-09-25] MEDS: INSULIN LISPRO 100 UNIT/ML 3ML VIAL SUBCUT ×3 (08:05→16:59)
[2024-09-25 08:19] VITALS: BP 111/72; PULSE 83; RESP 16; TEMP 36.2; O2SAT 93
--- NOTE | 2024-09-25 08:44 | CM.DPNOTE ---
DCP Continued: Reviewed EMR and team rounds for pt?s medical status. Per Provider, pt still on track for discharge to [facility] on 09/26 at 11:30am. MEAT SERVICE TEAM MEMBER initiated PASRR, need MD signature for hospital exempt discharge. Dr. Medina aware of PASRR in red chart. MEAT SERVICE TEAM MEMBER updated status board, notified pt, pt RN of discharge and transport time/date. Plan: Anticipating discharge to [facility] on 09/26 at 11:30a via facility wheelchair van. CM Team will continue to follow for coordination of discharge plans. TJ Garcia
[2024-09-25] MEDS: Sacubitril-Valsartan [Entresto] 49-51 mg tab 0.5 EACH PO ×2 (09:35→20:31)
[2024-09-25] MEDS: DOCUSATE 100 MG CAPSULE PO ×2 (09:35→20:29)
[2024-09-25] MEDS: TORSEMIDE 10 MG TABLET 20 MG PO (09:36)
[2024-09-25] MEDS: FOLIC ACID 1 MG TABLET PO (09:36)
[2024-09-25] MEDS: SPIRONOLACTONE 25 MG TABLET PO (09:37)
[2024-09-25] MEDS: MAGNESIUM OXIDE 400 MG TABLET PO ×2 (09:37→20:30)
[2024-09-25 09:38] VITALS: BP 111/72; PULSE 83
[2024-09-25] MEDS: ISOSORBIDE MONONITRATE ER 30 MG TABLET PO (09:38)
[2024-09-25] MEDS: PANTOPRAZOLE DR 40 MG TABLET PO ×2 (09:38→20:27)
[2024-09-25] MEDS: ASPIRIN EC 81 MG TABLET PO ×2 (09:39→20:30)
[2024-09-25] MEDS: SERTRALINE 50 MG TABLET 150 MG PO (09:39)
[2024-09-25] MEDS: FAMOTIDINE 20 MG TABLET PO ×2 (09:39→20:28)
[2024-09-25] MEDS: TAMSULOSIN 0.4 MG CAPSULE PO ×2 (09:39→20:27)
[2024-09-25] MEDS: OXYBUTYNIN 5 MG ER TAB 10 MG PO (09:39)
--- NOTE | 2024-09-25 12:10 | OT.IP.TRT ---
Current Diagnoses Unilateral post-traumatic osteoarthritis, right hip (09/23/24) Surgery Performed Operation Date: 09/22/24 07:45 Actual Procedures p Total Hip Arthroplasty, Cemented, Posterior(Right) - Sarah Osei MD Occupational Therapy Treatment Note M2 OT-IP Current Condition Start: 09/23/24 14:00 Freq: Status: Active Protocol: Document 09/23/24 14:00 [facility] (Rec: 09/23/24 14:19 [facility] Desktop) Occupational Therapy Current Condition Current Condition Evaluation Date 09/23/24 Treatment Diagnosis S/P R KITTY posterior Diagnosis Onset Date 09/22/24 Post Operative Precautions Posterior Hip No Hip Flexion > 90 degrees,No Hip Internal Rotation,No Precautions Hip Adduction M3 OT- IP Subjective and Pain Start: 09/23/24 14:00 Freq: Status: Active Protocol: Document 09/25/24 12:13 CCC (Rec: 09/25/24 12:35 [facility] Desktop) OT- Subjective Occupational Therapy Visit Type Type Treatment Note Visit Start Time 11:33 Visit Stop Time 12:11 Occupational Therapy Visit Comments Patient Comments Pt needing to be changed as brief and bed wet when OT came in to see pt. Patient/Caregiver TO go home. Goals OT Pain Assessment Pain When Pain Assessed During Mobility Pain Present Pain Present Pain Reported Location Right Hip Intensity 2 Scale Used Numeric (0 - 10) M4 OT- IP ADL's Start: 09/23/24 14:00 Freq: Status: Active Protocol: Document 09/25/24 12:13 CCC (Rec: 09/25/24 12:35 [facility] Desktop) OT [id number] Comments OT Self-Feeding Not at meal time. Comments OT ADL-Grooming Comments OT Grooming Comments Pt able to wash his face after set-up. OT ADL-Oral Care Comments Oral Care Comments Not observed. OT ADL-Dressing General Eval Lower Body Dressing Moderate Assistance Ability Areas Needing Underpants/Brief,Socks Assistance Comments OT Dressing Comments Pt able to practice LB dressing needs with sock aid and sand screener operator. Pt needing assist to help pull up the brief over his hips. OT ADL-Toileting General Evaluation Toileting Ability Minimal Assistance Areas Needing Manage Clothing Assistance OT ADL-Bathing Bathing Type Bathing Type Sponge Bath General Evaluation Bathing Ability Maximal Assistance Areas Needing Wash/Dry Back,Wash/Dry Lower Extremities Assistance Comments OT Bathing Comments Pt able to assist while seated on the BSC. M5 OT- IP IADL's Start: 09/23/24 14:00 Freq: Status: Active Protocol: Document 09/23/24 14:00 [facility] (Rec: 09/23/24 14:19 [facility] Desktop) OT-Instrumental Activities of Daily Living Home Safety Awareness Home Safety Comments Pt is a bit groggy and forgetful at this time. Meal Preparation Meal Preparation Caregiver Provides Assist Embryology Teacher Embryology Teacher Caregiver Provides Assist M6 OT- IP Functional Cognition Start: 09/23/24 14:00 Freq: Status: Active Protocol: Document 09/25/24 12:13 [facility] (Rec: 09/25/24 12:35 [facility] Desktop) Cognitive Factors Limiting Selfcare Function Cognitive Ability Memory Description Short Term Impaired Safety Awareness Decreased Recall of Precautions,Decreased Ability to Apply Precautions Cognitive Comments Cognitive Assessment Pt still not able to recall his precautions and needing Comments cue to follow for ADL and mobility needs. Pt also needing MAX vc for safety as well. M7 OT- IP Mobility and Balance Start: 09/23/24 14:00 Freq: Status: Active Protocol: Document 09/25/24 12:13 [facility] (Rec: 09/25/24 12:35 [facility] Desktop) OT- Bed Mobility Assessment Supine to Sit Supine to Sit Assist Maximum Assistance OT-Transfer Assessment Sit to and From Stand Sit to and from Moderate Assistance,Maximum Assistance,2 Person Stand Assistance Transfers Transfer Ability Moderate Assistance,Maximum Assistance,2 Person Assistance Technique Transfer Destination Bed,Bedside Commode,Chair Devices Transfer Assistive Gait Belt,Front Wheeled Walker Devices Comments Mobility Comments Pt able to try use of leg wood router to assist to get to the edge of the bed. Pt still needing MAXA to help get his trunk upright. MODA/MAX XA 2 to stand and transfer today as pt more tired. OT- Balance Assessment Sitting Balance and Reactions Static Sitting Good Balance Ability Dynamic Sitting Good Balance Ability Standing Balance and Reactions Static Standing Fair Balance Ability Dynamic Standing Poor Balance Ability M8 OT- IP Objective Assessments Start: 09/23/24 14:00 Freq: Status: Active Protocol: Document 09/23/24 14:00 [facility] (Rec: 09/23/24 14:19 [facility] Desktop) OT Gross Range of Motion Upper Extremity Range of Motion Assessment Within Functional Limits OT Strength Upper Extremity Strength Assessment Right Impaired M9 OT- IP Assessment and Plan Start: 09/23/24 14:00 Freq: Status: Active Protocol: Document 09/25/24 12:13 [facility] (Rec: 09/25/24 12:35 [facility] Desktop) OT Summary Assessment and Plan Potential Rehabilitation Good Potential Analytic Complexity Low at Evaluation Summary OT Impairments Pain,Strength,Balance,Functional Cognition,Functional Mobility,Self-Feeding,Grooming,Dressing,Toileting, Bathing,Toilet Transfers Progress Towards Progressing Toward Goals Goals Assessment Summary Pt able to participate in transfer to BSC, sponge bath, and practice of LB dressing. Pt more tired today and needing mod/MAXAX 2 to stand and transfer with the FWW. Pt to go to skilled rehab tomorrow. Goals Self-Feeding Goal Independent Grooming Goal Independent Dressing Goal Independent,Long Handled Shoe Horn,Environmental Technology Professor,Sock Aid Toileting Goal Independent Bathing Goal Minimal Assistance Toilet Transfer Goal Independent Shower Transfer Goal Standby Assistance Days to Meet Goals 25 Frequency of Treatment Other frequency 5x/week Treatment Plan OT Treatment Plan ADL Training,Functional Cognition Training,Functional Mobility,Patient/Family Education,Discharge Planning Discharge Recommendations OT Discharge SNF Rehab Recommendations Transportation Needs Wheelchair/Cabulance at Discharge
--- NOTE | 2024-09-25 14:15 | PT.IPTN ---
Current Diagnoses Unilateral post-traumatic osteoarthritis, right hip (09/23/24) Surgery Performed Operation Date: 09/22/24 07:45 Actual Procedures p Total Hip Arthroplasty, Cemented, Posterior(Right) - Sarah Osei MD Physical Therapy Treatment Note M2 PT-IP Current Condition Start: 09/22/24 16:36 Freq: NEEDED Status: Active Protocol: Document 09/22/24 15:20 AB (Rec: 09/22/24 16:52 AB [id number]) Physical Therapy Current Condition Current Condition Evaluation Date 09/22/24 Treatment Diagnosis s/p R KITTY posterior; difficulty in walking Onset Date 09/22/24 M3 PT-IP Subjective Start: 09/22/24 16:36 Freq: NEEDED Status: Active Protocol: Document 09/25/24 14:15 AB (Rec: 09/25/24 16:02 AB [id number]) Subjective Physical Therapy Visit Type Type Treatment Note Visit Start Time 14:15 Visit Stop Time 14:50 Number of STAMP ANALYST Visits 0 Physical Therapy Visit Comments Patient Comments agreeable to do PT Therapy Pain Assessment Pain When Pain Assessed At Rest Pain Present Pain Present Pain Reported Location Right Hip Intensity 4 M4 PT-IP Mobility and Gait Start: 09/22/24 16:36 Freq: NEEDED Status: Active Protocol: Document 09/25/24 14:15 AB (Rec: 09/25/24 16:02 AB [id number]) PT-Bed Mobility Assessment Supine to Sit Supine to Sit Maximum Assistance,Total Assistance,Head of Bed Elevated Sit to Supine Sit to Supine Maximum Assistance,1 Person Assistance,Head of Bed Elevated Scooting Scooting to Edge of Maximum Assistance Bed PT-Transfer Assessment Sit to and From Stand Sit to and from Maximum Assistance,1 Person Assistance,2 Person Stand Assistance,Use of Upper Extremities Equipment Transfer Assistive Gait Belt,Front Wheeled Walker Device Orthotic/Prosthetic No Devices or Brace: Transfers Transfer Destination Chair Transfer Technique ambulated Transfer Ability Level of Assist Moderate Assistance,1 Person Assistance,Use of Upper Extremities Comments Mobility Comments pt in bed and agreeable to do PT. spouse in room. reviewed posterior hip precautions with pt and pt only recalled 1/3. BP: 100/61. completed supine to sit max A and max cues. BP sitting : 105/63. c/o slight dizziness. sit to stand max A x 1- 2 and max cues. pt ambulated in room ~ 10 ft using FWW mod A and needed to sit down. max A for controlled descent to chair. BP: 104/63 . pt wants to go back to bed. sit to stand from chair max A and able to take a few steps back to bed using fWW mod A. sit to supine max A and max cues. pt then stated that he needs to use the toilet. assisted back to sitting max A and max cues. pt wants to just use urinal. NAC in room to assist pt with toileting needs. Left pt with NAC. Gait Assessment Gait Gait Assistance Moderate Assistance Required: Distance (Feet) 10 Able to Maintain Yes Weight Bearing Status During Gait Assistive Devices Assistive Device Gait Belt,Front Wheeled Walker Orthotic/Prosthetic No Devices or Brace: Gait Deviations General Gait Pattern Antalgic,Decreased Stride Length,Decreased Feet Clearance Factors Limiting Gait Function Factors Limiting Decreased Activity Tolerance,Decreased Strength, Gait Function Difficulty Following Directions,Limited Range of Motion ,Pain,Poor Balance,Poor Safety Awareness M5 PT-IP Objective Assessments Start: 09/22/24 16:36 Freq: NEEDED Status: Active Protocol: Document 09/22/24 15:20 AB (Rec: 09/22/24 16:52 AB [id number]) Orientation Orientation/Cognition Level of Alertness Alert Orientation Name,Place,Situation Safety Awareness Decreased Safety Awareness Memory Description No Deficits Noted Gross Range of Motion Lower Extremity ROM Assessment Within Functional Limits Strength Lower Extremity Strength Assessment Right Impaired Hip 3-/5 Knee 3+/5 Coordination Assessment Gross Coordination Gross Coordination WNL Sensation Assessment Sensation Gross Sensation WNL Muscle Tone Muscle Tone WNL Yes M6 PT-IP Treatment Start: 09/22/24 16:36 Freq: NEEDED Status: Active Protocol: Document 09/25/24 14:15 AB (Rec: 09/25/24 16:02 AB [id number]) Physical Therapy Treatment Education Education Provided Precautions,Safety M7 PT-IP Assessment and Plan Start: 09/22/24 16:36 Freq: NEEDED Status: Active Protocol: Document 09/25/24 14:15 AB (Rec: 09/25/24 16:02 AB [id number]) PT Summary Assessment and Plan Potential Rehabilitation Fair Potential Summary Impairments Pain,ROM,Strength,Balance,Coordination,Sensation,Tone, Cognition,Bed Mobility,Transfers,Gait,Activity Tolerance Progress Towards Slow Progress due to Medical Issues,Slow Progress due Goals to Activity Tolerance,Slow Progress - Other Assessment Summary pt slowly progressing. pt requiring max A for bed mobility, max A x 1-2 for sit to stand and mod A for ambulation using FWW and was only able to ambulate ~ 10 ft. pt will benefit from SNF rehab to improve strength and function. Goals Bed Mobility Goal Standby Assistance Transfer Goal Standby Assistance,Front Wheeled Walker Gait Goal Standby Assistance,Front Wheel Walker Gait Distance 100 Other Goals improve bed mobility, transfers, ambulation using FWW 150 ft mod I up/down 2 steps L rail ascending SBA Days to Meet Goals 10 Frequency of Treatment Frequency Of Once a Day Treatment Other frequency 1-2x/day Treatment Plan Physical Therapy Bed Mobility Training,Transfer Training,Gait Training, Treatment Plan Therapeutic Exercise,Balance Retraining,Post Op Education,Discharge Planning,Hot or Cold Pack, Neuromuscular Re-ed,Coordination Retraining,Manual Therapy Precautions Posterior Hip No Hip Internal Rotation,No Hip Adduction Precautions Weight Bearing Status Weight Bearing Weight Bear as Tolerated Status Allowed Weight RLE WBAT Bearing Amount ( enter % or #) (%) Recommendations To Nursing Amount of Assist 2 Person Assist Needed Discharge Recommendations PT Discharge SNF Rehab Recommendations Transportation Needs Wheelchair/Cabulance at Discharge - PT assist 1-2
[2024-09-25 20:00] VITALS: BP 152/85; PULSE 101; RESP 15; TEMP 36.6; O2SAT 91
[2024-09-25] MEDS: ATORVASTATIN 20 MG TABLET 40 MG PO (20:29)
[2024-09-25] MEDS: GABAPENTIN 100 MG CAPSULE 200 MG PO (20:29)
--- NOTE | 2024-09-26 07:22 | P.DS_ITS ---
History of Present Illness History of Present Illness Chief complaint: right KITTY Narrative: The patient has had progressively worsening right hip pain with radiographic changes consistent with arthritis. Non-operative management has failed and the patient has requested total hip replacement. The risks, benefits and alternatives to surgery were discussed with the patient prior to proceeding. Risks discussed included, but were not limited to, failure to relieve pain, leg length discrepancy, dislocation, stiffness, infection, nerve damage, deep venous thrombosis, pulmonary embolism, stroke, coma, heart attack, permanent paralysis and , as well as the potential need for eventual revision of the prosthetic. Discharge Providers Provider Date of admission: 09/23/24 11:54 Discharge Date: 09/26/24 Primary care physician: Matt Medina MD Consults: 09/07/24 10:54 Consult to Anesthesiology Routine Comment: Consulting Provider: Anesthesiologist Reason for consultation: Surgeon requested re: Cardiac history 09/22/24 06:37 Consult to Anesthesiology Routine Comment: Consulting Provider: Anesthesiologist Reason for consultation: Regional block for post operative pain control Has provider been notified: No 09/22/24 12:15 Consult to Discharge Planning Routine Comment: Consult to Occupational Therapy Evaluate & Treat Comment: Physician Instructions: Evaluate and treat Consult to Physical Therapy Evaluate & Treat Comment: Physician Instructions: post op KITTY protocol Discharge provider: Chadd Vasquez PA-C Summary Hospital Course Discharge Diagnosis: Right hip osteoarthritis history of prior right hip fracture Hospital Course: Right total hip arthroplasty posterior approach Same procedure(s) as scheduled: Yes Surgeon: Sarah Osei Child Psychometrist: Chadd Vasquez Anesthesia Type: General and Spinal Operative Notes Findings: Severe right hip OA, adequate stability, adequate bone Closure Type: primary Specimen(s): other (Culture and sensitivity, PCR) Prosthetic devices, grafts, tissues, transplants, or devices: Osei [employer] Nephew R3 60, neutral poly liner, two 6.5 mm screws, Synergy stem high offset size 13, +4 by 40, Applied: none Estimated Blood Loss (mL): 250 Blood products transfused: none Status at Discharge Cognitive/behavioral status at discharge: oriented Functional status at discharge: uses cane/walker Overall status at discharge: patient is back to baseline Time Spent with Patient Time spent: Less than 30 minutes Exam Vital Signs (past 8 hours): Oxygen Delivery Method Room Air Oxygen Flow Rate 2 Narrative Exam Narrative: Patient's pain is controlled with oral medication. ?Pain is localized to surgical site. ?Patient declines any new numbness or tingling at the surgical extremity. ?Patient denies any shortness of breath, dizziness, light-headedness, nausea, vomiting, fever or chills. 5/5 strength in hip flexors, quadriceps, hamstrings, DF, PF, EHL bilaterally. Sensation to light touch intact throughout BLE. Calves soft, compressible, nontender. Dressing placed intraoperatively CDI. SCDs found off pt legs. Resp Effort & Inspection: normal respiratory effort and able to speak in complete sentences Objective Labs 09/23/24 09:11 09/23/24 09:11 Labs: Laboratory Results - last 24 hr 09/25/24 09/25/24 09/25/24 07:24 11:46 16:55 POC Whole Bld Glucose 165 H 181 H 174 H 09/25/24 20:02 POC Whole Bld Glucose 188 H PFS Medical History Poor short term memory ICD (implantable cardioverter-defibrillator) in place (05/08/24) History of nephrolithiasis Chronic renal failure, stage 3a Overactive bladder Urinary incontinence Post laminectomy syndrome Mitral valve insufficiency Cardiomyopathy Chronic HFrEF (heart failure with reduced ejection fraction) Nonsustained paroxysmal ventricular tachycardia Mild claudication Recurrent falls Spinal stenosis Tinnitus Diabetes HLD (hyperlipidemia) Depression Incomplete bladder emptying Hayfever (1999) Shoulder pain (2011) Fracture (1951) Chronic back pain (1989) Hepatitis A (1963) Melanoma (1987) Gilbert's syndrome Femur fracture (1965) Primary osteoarthritis of both hips (08/30/15) Polymyalgia rheumatica (08/30/15) Type 2 diabetes mellitus without complication (06/05/15) Benign prostatic hyperplasia with urinary obstruction (03/25/15) Peripheral vascular disease (2009) Coronary artery disease involving [place] coronary artery of [place] heart without angina pectoris (1995) Essential hypertension Mixed hyperlipidemia Surgical History History of lumbar spinal fusion (~02/2024) Hx of laminectomy (~12/2023) History of bilateral cataract extraction History of coronary artery stent placement (07/29/18) History of orthopedic surgery (1965) Status post appendectomy (1956) Status post coronary artery bypass graft (1995) Family History Father Colon cancer Prostate enlargement Bladder cancer History of hip surgery Pneumonia History of prostate surgery Mother Diabetes mellitus Heart disease Hypertension High cholesterol Osteoporosis History of cataract surgery H/O heart bypass surgery Arthritis Grandfather Arthritis Prostate cancer Colon cancer Deaf Legally blind Grandmother Diabetes mellitus Hypertension Angina pectoris Heart disease Osteoporosis Social History marital status: number of children: 0 household members: spouse lives independently: Yes caregiver/support person: No housing: house pets and animals: Yes education level: other occupational status: other 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/holiness: None travel history: other leisure activities: other Smoking Status: Former smoker Tobacco: How many years used: 20 Smokeless tobacco user: other quit status: quit date established second hand exposure: No alcohol intake: former substance use type: does not use and marijuana Discharge Assessment & Plan Assessment and Plan Assessment: Status post right hip total arthroplasty posterior approach. Plan of Treatment: Discharge to SNF. Patient medically stable per PCP for transfer. Posterior Hip Pre-cautions. Ambulate and weight bear as tolerated with assistive devices. ? Aspirin 81 mg twice a day for 6 weeks for DVT prevention. ?SCDs reapplied and should be on when resting while inpatient. Baseline pain relief with acetaminophen 500mg every 4 hours as needed and ibuprofen 400 mg every 4 hours as needed. ?Patient has been prescribed oxycodone 5 mg every 4 ?hours as needed for breakthrough pain. ? Initiate physical therapy in the next 5-10 days. ? Keep dressing clean and dry. Keep dressing on until first office visit. If dressing becomes dirty or disrupted, replace with appropriate sized dressing. Follow up in clinic in 2 weeks for wound check. Contact clinic if there are any questions or concerns. Discharge Plan Discharge Plan Patient Disposition: SNF Transfer to: [facility] Discharge orders & Medications Prescriptions: New ondansetron 4 mg Tablet,Disintegrating 4 mg PO Q4HR PRN (Reason: Nausea) Qty: 10 0RF oxycodone 5 mg Tablet 5 mg PO Q4H PRN (Reason: Pain, Moderate (4-6)) Qty: 40 0RF Continued (DME) blood-glucose meter Misc See Rx Instructions .ROUTE .MEDSUPPLY Qty: 1 0RF Rx Instructions: Use to test blood glucose DAILY (DME) Blood Glucose Test Strip See Rx Instructions .ROUTE .MEDSUPPLY Qty: 100 1RF Rx Instructions: Use to test blood glucose ONCE daily. (DME) lancets [BD Ultra Fine Lancets] 33 gauge misc See Rx Instructions .ROUTE .MEDSUPPLY Qty: 100 1RF Rx Instructions: Use to test blood glucose ONCE daily glipizide 10 mg tablet extended release 24hr 10 mg PO BID Qty: 180 3RF torsemide 20 mg tablet 20 - 40 mg PO DAILY Qty: 180 0RF albuterol sulfate 90 mcg/actuation HFA aerosol inhaler 2 puff inhalation Q4-6H PRN (Reason: shortness of breath or wheezing) Qty: 8.5 0RF famotidine 20 mg tablet 20 mg PO BID Qty: 180 3RF folic acid 1 mg tablet 1 mg PO DAILY Qty: 90 3RF tamsulosin [Flomax] 0.4 mg capsule 0.4 mg PO BID Qty: 180 3RF pantoprazole 40 mg tablet,delayed release (DR/EC) 40 mg PO BID Qty: 180 3RF magnesium oxide 400 mg magnesium tablet 400 mg PO BID Qty: 60 4RF tolterodine 4 mg capsule,extended release 24hr 4 mg PO DAILY Qty: 90 3RF sertraline 100 mg tablet 150 mg PO DAILY Qty: 135 3RF (DME) Disabled Parking See Rx Instructions .ROUTE .MEDSUPPLY Qty: 1 0RF Rx Instructions: Patient qualifies for disabled parking as per the attached form. isosorbide dinitrate 20 mg tablet 20 mg PO BID Qty: 1 0RF leflunomide 20 mg tablet 20 mg PO DAILY carvedilol 6.25 mg tablet 6.25 mg PO BID sacubitril-valsartan [Entresto] 49-51 mg tablet 0.5 tab PO BID Patient Comments: [NO ORIGINAL SIG] gabapentin 100 mg capsule 200 mg PO BEDTIME Qty: 180 3RF rosuvastatin 20 mg Tablet 20 mg PO QPM vitamin B complex Tablet 1 tab PO DAILY spironolactone 25 mg tablet 25 mg PO DAILY Jardiance 10 mg tablet 10 mg PO DAILY Changed aspirin [Adult Low Dose Aspirin] 81 mg tablet,delayed release (DR/EC) 81 mg PO BID Qty: 90 0RF Follow up/Referrals: Matt Medina MD [Primary Care Provider, Internal Medicine] Referral Note: Following discharge from SNF Diet/Activity/Treatments Diet: Diet as Tolerated Activity: Ambulate multiple times a day. Use a cane or walker as needed. Full weight on leg. Cold/Heat Therapy: : Use ice multiple times a day. Skin/Wound/Dressing Care Skin care: Leave dressing on. Okay to shower Report to your healthcare provider any signs of infection, such as:: chills, fever, night sweats, unusual drainage and unusual redness Dressing: May shower. Leave dressing in place until follow up in office. No bathing or otherwise soaking incision. Call the office if the dressing becomes saturated inside. Visit Report/Discharge Packet Instructions: DI for Hip Replacement, DI for Prescription Opioid Use Stand Alone Forms: Patient Portal/API, Surgery Discharge Discharge Data Primary Care Provider: Matt Medina
[2024-09-26 08:27] VITALS: BP 108/64; PULSE 83; RESP 16; TEMP 35.9; O2SAT 96
--- NOTE | 2024-09-26 08:44 | CM.DPC ---
DCP Discharge SNF Per Ortho PA, pt medically stable to d/c to SNF today for ongoing post op therapies and recovery and completed discharge and signed pt's PASRR for exempt hospital discharge. BALJINDER contacted admissions at [facility] and confirmed they can still accept pt today for 1130 transport and BALJINDER secure emailed PASRR, signed med list, script, orders and d/c summary to [facility] to review and pt to come with his own home med Leflunomide that is already at the hospital and alerted RN about it. BALJINDER updated plastic extrusion operator, RN TELEHEALTH, and RN and provided number to call report. Plan: Patient to d/c to [facility] today via facility van at 1130 before safe return home. NASIM Gutierrez
[2024-09-26] MEDS: INSULIN LISPRO 100 UNIT/ML 3ML VIAL SUBCUT (08:47)
[2024-09-26] MEDS: ACETAMINOPHEN 325 MG TABLET 650 MG PO (08:48)
[2024-09-26] MEDS: SERTRALINE 50 MG TABLET 150 MG PO (09:01)
[2024-09-26] MEDS: FOLIC ACID 1 MG TABLET PO (09:01)
[2024-09-26] MEDS: Sacubitril-Valsartan [Entresto] 49-51 mg tab 0.5 EACH PO (09:01)
[2024-09-26 09:02] VITALS: BP 108/64
[2024-09-26] MEDS: OXYBUTYNIN 5 MG ER TAB 10 MG PO (09:02)
[2024-09-26] MEDS: MAGNESIUM OXIDE 400 MG TABLET PO (09:02)
[2024-09-26] MEDS: SPIRONOLACTONE 25 MG TABLET PO (09:02)
[2024-09-26] MEDS: ASPIRIN EC 81 MG TABLET PO (09:02)
[2024-09-26] MEDS: ISOSORBIDE MONONITRATE ER 30 MG TABLET PO (09:03)
[2024-09-26] MEDS: TORSEMIDE 10 MG TABLET 20 MG PO (09:03)
[2024-09-26] MEDS: PANTOPRAZOLE DR 40 MG TABLET PO (09:03)
[2024-09-26] MEDS: TAMSULOSIN 0.4 MG CAPSULE PO (09:03)
[2024-09-26] MEDS: FAMOTIDINE 20 MG TABLET PO (09:03)
[2024-09-26] MEDS: DOCUSATE 100 MG CAPSULE PO (09:04)
--- NOTE | 2024-09-26 09:21 | P.PN_ITS ---
Subjective Subjective Date Patient Seen: 09/26/24 Time Patient Seen: 09:21 Interval history: Patient with uneventful day yesterday Up again with skilled therapies slowly improving Again no cardiovascular symptoms no respiratory symptoms Vital signs look good with oxygen saturation at 96%. Blood pressure has been in the 110-150 range Blood sugars have been 188 max, so well controlled Plan is for discharge to senior living later this morning Exam Vital Signs (past 8 hours): - 09/26/24 08:27 09/26/24 09:02 Temperature 96.6 F L Pulse Rate 83 Respiratory Rate 16 Blood Pressure 108/64 108/64 Pulse Oximetry 96 Oxygen Flow Rate 0 Oxygen Delivery Method Room Air Oxygen Flow Rate 0 Objective Labs 09/23/24 09:11 09/23/24 09:11 Labs: Laboratory Results - last 24 hr 09/25/24 09/25/24 09/25/24 11:46 16:55 20:02 POC Whole Bld Glucose 181 H 174 H 188 H 09/26/24 07:34 POC Whole Bld Glucose 164 H PFS Medical History Poor short term memory ICD (implantable cardioverter-defibrillator) in place (05/08/24) History of nephrolithiasis Chronic renal failure, stage 3a Overactive bladder Urinary incontinence Post laminectomy syndrome Mitral valve insufficiency Cardiomyopathy Chronic HFrEF (heart failure with reduced ejection fraction) Nonsustained paroxysmal ventricular tachycardia Mild claudication Recurrent falls Spinal stenosis Tinnitus Diabetes HLD (hyperlipidemia) Depression Incomplete bladder emptying Hayfever (1999) Shoulder pain (2011) Fracture (1951) Chronic back pain (1989) Hepatitis A (1963) Melanoma (1987) Gilbert's syndrome Femur fracture (1965) Primary osteoarthritis of both hips (08/30/15) Polymyalgia rheumatica (08/30/15) Type 2 diabetes mellitus without complication (06/05/15) Benign prostatic hyperplasia with urinary obstruction (03/25/15) Peripheral vascular disease (2009) Coronary artery disease involving [place] coronary artery of [place] heart without angina pectoris (1995) Essential hypertension Mixed hyperlipidemia Surgical History History of lumbar spinal fusion (~02/2024) Hx of laminectomy (~12/2023) History of bilateral cataract extraction History of coronary artery stent placement (07/29/18) History of orthopedic surgery (1965) Status post appendectomy (1956) Status post coronary artery bypass graft (1995) Family History Father Colon cancer Prostate enlargement Bladder cancer History of hip surgery Pneumonia History of prostate surgery Mother Diabetes mellitus Heart disease Hypertension High cholesterol Osteoporosis History of cataract surgery H/O heart bypass surgery Arthritis Grandfather Arthritis Prostate cancer Colon cancer Deaf Legally blind Grandmother Diabetes mellitus Hypertension Angina pectoris Heart disease Osteoporosis Social History marital status: number of children: 0 household members: spouse lives independently: Yes caregiver/support person: No housing: house pets and animals: Yes education level: other occupational status: other 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/hindu: None travel history: other leisure activities: other Smoking Status: Former smoker Tobacco: How many years used: 20 Smokeless tobacco user: other quit status: quit date established second hand exposure: No alcohol intake: former substance use type: does not use and marijuana Assessment & Plan Assessment & Plan narrative: 1. Postop day 3. Status post right total hip arthroplasty-continued postoperative management as per Orthopedic surgery. Continue with skilled therapies. I agree senior living placement of seems like the most reasonable option for patient. 2. Ischemic cardiomyopathy with history of congestive heart failure-patient appears to be probably euvolemic at this point. Continue usual medications 3. Diabetes-adequate control for now, no changes. Okay to go to senior living without coverage insulin 4. Hypertension-adequate control with excellent blood pressure numbers on current medications. No change upon discharge to senior living 5. Disposition-plan for discharge to senior living today as planned. Hopefully short stay and can return home within the next 14 days plus-minus Time-Based Coding :: [TOTAL MINUTES] spent with patient and on the chart (including review of chart, obtaining history, exam, reviewing outside data, placing orders, documenting exam and treatment plan, and counseling patient) on [DATE]. PROFEE Torts Law Professor Document charge(s): Yes Charge Codes Subsequent inpatient/observation care: [id number]
--- NOTE | 2024-09-26 11:52 | PC.NURSE ---
Removed patient PIV, pt tolerated well. All belongings with pt and pt's spouse. Provided discharge education on follow up appt. Pt and spouse stated all questions answered. Provided handoff to Ann at ([phone]). Pt escorted to facility via facility employee, DELPHINE Saunders took patient down to van via WC. Medication in fountain server sent to pharmacy, medications in pharmacy returned to pt spouse. No belongings in safe.
== END 2024-09-26 11:55 | DRG 470 ==
LOC: OR 12:47 → AC 12:47
PROVIDERS: Admitting Provider Orthopaedic Surgery; Family Provider Internal Medicine; PCP Internal Medicine; Referring Provider Orthopaedic Surgery; Visit Provider Orthopaedic Surgery
PROC: 0SR90JZ Replacement of Right Hip Joint with Synthetic Substitute, Open Approach (ICD-10-PCS; CPT 27130; principal; 2024-09-22 07:45)
DX: M16.51 Unilateral post-traumatic osteoarthritis, right hip (principal); I50.22 Chronic systolic (congestive) heart failure; I25.5 Ischemic cardiomyopathy; E11.9 Type 2 diabetes mellitus without complications; N40.1 Benign prostatic hyperplasia with lower urinary tract symptoms; M96.1 Postlaminectomy syndrome, not elsewhere classified; I11.0 Hypertensive heart disease with heart failure; E78.5 Hyperlipidemia, unspecified; F32.A Depression, unspecified; S72.91XS Unspecified fracture of right femur, sequela; X58.XXXS Exposure to other specified factors, sequela; Z95.810 Presence of automatic (implantable) cardiac defibrillator; Z95.5 Presence of coronary angioplasty implant and graft; Z79.84 Long term (current) use of oral hypoglycemic drugs; Z87.891 Personal history of nicotine dependence
CPT/HCPCS: 72170; 73502; 80048; 82962; 83735; 83880; 85014; 85018; 87070; 87075; 87176; 87205; 87801; 97162; 97165; 97530; 97535; C1776; A9270; C1713; J0165; J0666; J1815; J2250; J2704; J3010

== ENCOUNTER → 2024-11-23 11:51 | Outpatient (CLI) | payer MEDICARE, OTHER, SELFPAY ==
[2024-09-22 14:02] VITALS: BMI 30.5
[2024-11-23 13:05] LABS: Add Manual Diff / Slide Review NO; Hematocrit 32.8 % (41-53); Hemoglobin 10.5 g/dL (13.5-17.5); Lymphocytes Absolute Auto 1000 /uL (1100-4500); Mean Corpuscular HGB Conc 32.0 % (30-36); Mean Corpuscular Hemoglobin 25.7 PG (26-34); Mean Corpuscular Volume 80.4 fL (80-100); Platelet Count 220 X10^3/uL (150-400)
[2024-11-23 13:52] LABS: Alanine Aminotransferase 15 IU/L (<50); Albumin 4.3 g/dL (3.5-5.0); Albumin Globulin Ratio 1.7 (1.0-2.8); Alkaline Phosphatase 102 U/L (38-126); Blood Urea Nitrogen 20 mg/dL (9-20); Calcium 8.5 mg/dL (8.4-10.2); Carbon Dioxide 19 mmol/L (22-32); Chloride 107 mmol/L (98-107); Creatine Kinase 83 U/L (55-170); Estimated Glomerular Filt Rate 54 mL/min (>60); Globulin 2.6 g/dL (1.7-4.1); Glucose 193 mg/dL (70-99); HEMOLYSIS < 15 (0-50); Magnesium 2.0 mg/dL (1.6-2.3); Potassium 4.7 mmol/L (3.4-5.1); Sodium 137 mmol/L (137-145); Total Protein 6.9 g/dL (6.3-8.2)
[2024-11-23 14:01] LABS: NT-proBNP (BNP-Adult 18+) 1540 pg/mL (<450)
== END ==
PROVIDERS: PCP Internal Medicine; Referring Provider Internal Medicine; Visit Provider Internal Medicine
DX: I13.0 Hypertensive heart and chronic kidney disease with heart failure and stage 1 through stage 4 chronic kidney disease, or unspecified chronic kidney disease (principal); I50.22 Chronic systolic (congestive) heart failure; E78.2 Mixed hyperlipidemia; N18.31 Chronic kidney disease, stage 3a
CPT/HCPCS: 36415; 80053; 82550; 83735; 83880; 85025

== ENCOUNTER → 2024-12-22 15:39 | Outpatient (CLI) | payer MEDICARE, OTHER, SELFPAY ==
[2024-09-22 14:02] VITALS: BMI 30.5
[2024-12-22 17:18] LABS: Add Manual Diff / Slide Review NO; Hematocrit 31.2 % (41-53); Hemoglobin 10.0 g/dL (13.5-17.5); Lymphocytes Absolute Auto 900 /uL (1100-4500); Mean Corpuscular HGB Conc 32.2 % (30-36); Mean Corpuscular Hemoglobin 25.0 PG (26-34); Mean Corpuscular Volume 77.4 fL (80-100); Platelet Count 241 X10^3/uL (150-400)
[2024-12-22 17:40] LABS: HEMOLYSIS < 15 (0-50); Iron 35 ug/dL (49-181)
[2024-12-22 17:42] LABS: Alanine Aminotransferase 15 IU/L (<50); Albumin 4.7 g/dL (3.5-5.0); Albumin Globulin Ratio 1.7 (1.0-2.8); Alkaline Phosphatase 103 U/L (38-126); Blood Urea Nitrogen 27 mg/dL (9-20); Calcium 9.1 mg/dL (8.4-10.2); Carbon Dioxide 20 mmol/L (22-32); Chloride 105 mmol/L (98-107); Estimated Glomerular Filt Rate 49 mL/min (>60); Globulin 2.8 g/dL (1.7-4.1); Glucose 150 mg/dL (70-99); HEMOLYSIS < 15 (0-50); Magnesium 2.3 mg/dL (1.6-2.3); Potassium 4.8 mmol/L (3.4-5.1); Sodium 137 mmol/L (137-145); Total Protein 7.5 g/dL (6.3-8.2)
[2024-12-22 17:52] LABS: Percent Iron Saturation 9 % (20-50); Total Iron Binding Capacity 379 ug/dL (261-462); Transferrin 326 mg/dL (206-381)
[2024-12-22 18:57] LABS: Hemoglobin A1C% w Est Avg Glu 6.5 % (4.0-6.0)
== END ==
PROVIDERS: PCP Internal Medicine; Referring Provider Internal Medicine; Visit Provider Internal Medicine
DX: I10 Essential (primary) hypertension (principal); E11.9 Type 2 diabetes mellitus without complications; I42.9 Cardiomyopathy, unspecified; N18.31 Chronic kidney disease, stage 3a; D64.9 Anemia, unspecified
CPT/HCPCS: 36415; 80053; 83036; 83540; 83550; 83735; 85025

== ENCOUNTER 2024-12-30 23:03 | Inpatient (IN) | payer MEDICARE, OTHER, SELFPAY ==
[2024-09-22 14:02] VITALS: BMI 30.5
[2024-12-30 23:04] VITALS: BP 134/69; PULSE 77; RESP 16; TEMP 36.8; O2SAT 97; BMI 29.8
--- NOTE | 2024-12-30 23:09 | DI.RAD.S_ITS ---
PROCEDURE: XR HIP W PEL IF DONE RT 2V INDICATIONS: Fall onto right hip TECHNIQUE: Two views. COMPARISON: [facility], , XR HIP W PEL RT 2V, 11/05/2024, 19:15. FINDINGS: Right total hip arthroplasty. Hardware alignment is unchanged. Chronic avulsion fracture of the greater trochanter with proximal migration compared to prior. Moderate to severe left hip osteoarthritis. Partially imaged spinal fusion hardware. Atherosclerosis. Acute periprosthetic fracture of the anterior shaft of the right femur visible on cross-table lateral. IMPRESSION: Acute periprosthetic fracture of the femur. Dictated by: Gerson Jay M.D. on 12/31/2024 at 0:13 Approved by: Gerson Jay M.D. on 12/31/2024 at 0:15
[2024-12-30 23:23] VITALS: PULSE 72; O2SAT 95
[2024-12-30 23:30] VITALS: BP 130/66; PULSE 74; O2SAT 94
[2024-12-31] VITALS (19 sets, daily range): BP systolic 95–138; BP diastolic 49–73; PULSE 58–73; RESP 18; TEMP 35.7–35.9; O2SAT 92–97; BMI 31.4
[2024-12-31] MEDS: ACETAMINOPHEN 325 MG TABLET 975 MG PO (00:13)
--- NOTE | 2024-12-31 00:29 | ED.LOWEXIN ---
HPI - Extremity Injury (Lower) General Chief Complaint: Extremity Injury, Lower Stated Complaint: fall right hip Time Seen by Provider: 12/30/24 23:09 Source: patient and EMS Mode of arrival: EMS History of Present Illness HPI Narrative: 84-year-old male with a history of congestive heart failure, diabetes and recent right hip replacement back in September [address] Osei presents with a fall in his kitchen where he lost his footing twisted around and fell onto his right hip. His pain is just in his right hip at the moment. He denies any neurovascular compromise at this time. Related Data Home Medications ?Medication ?Instructions ?Recorded ?Confirmed rosuvastatin 20 mg tablet 20 mg PO QPM 08/17/20 12/22/24 leflunomide 20 mg tablet 20 mg PO DAILY 09/02/23 12/22/24 vitamin B complex 1 tab PO DAILY 12/11/23 12/22/24 empagliflozin 10 mg tablet 10 mg PO DAILY 03/11/24 12/22/24 (Jardiance) spironolactone 25 mg tablet 25 mg PO DAILY 03/11/24 12/22/24 carvedilol 6.25 mg tablet 6.25 mg PO BID 04/28/24 12/22/24 sacubitril 49 mg-valsartan 51 mg 0.5 tab PO BID 04/28/24 12/22/24 tablet (Entresto) carvedilol 12.5 mg tablet 12.5 mg PO BID 10/26/24 12/22/24 torsemide 10 mg tablet 10 mg PO DAILY 10/26/24 12/22/24 Previous Rx's ?Medication ?Instructions ?Recorded blood-glucose meter #1 ea 08/04/21 blood sugar diagnostic (Blood #100 ea 10/31/21 Glucose Test strips) lancets 33 gauge (BD Ultra Fine #100 ea 10/31/21 Lancets) Disabled Parking #1 ea 03/27/22 isosorbide dinitrate 20 mg tablet 20 mg PO BID #1 tab 04/23/23 torsemide 20 mg tablet 20 - 40 mg (1 - 2 x 20 mg) PO 12/13/23 DAILY #180 tabs albuterol sulfate 90 mcg/actuation 2 puff inhalation Q4-6H PRN 01/28/24 aerosol inhaler shortness of breath or wheezing #8.5 grams famotidine 20 mg tablet 20 mg PO BID #180 tabs 02/11/24 tamsulosin 0.4 mg capsule (Flomax) 0.4 mg PO BID #180 tabs 05/20/24 pantoprazole 40 mg tablet,delayed 40 mg PO BID #180 tabs 08/05/24 release magnesium oxide 400 mg PO BID #60 tabs 08/06/24 tolterodine 4 mg capsule,extended 4 mg PO DAILY #90 caps 09/15/24 release 24 hr sertraline 100 mg tablet 150 mg (1.5 x 100 mg) PO DAILY 09/18/24 #135 tabs aspirin 81 mg tablet,delayed 81 mg PO BID #90 tabs 09/26/24 release (Adult Low Dose Aspirin) folic acid 1 mg tablet 1 mg PO DAILY #90 tabs 10/02/24 glipizide 10 mg tablet, extended 10 mg PO BID #180 tabs 11/17/24 release 24 hr fluticasone propionate 50 2 spray intranasal BEDTIME #48 12/22/24 mcg/actuation nasal grams spray,suspension gabapentin 300 mg capsule 300 mg PO BID #180 caps 12/22/24 tirzepatide 2.5 mg/0.5 mL 2.5 mg (0.5 mL) SUBCUT QWEEK #2 mL 12/24/24 subcutaneous pen injector (Mounjaro) tirzepatide 5 mg/0.5 mL 5 mg (0.5 mL) SUBCUT QWEEK #2 mL 12/24/24 subcutaneous pen injector (Mounjaro) Allergies Allergy/AdvReac Type Severity Reaction Status Date / Time clavulanic acid (From Allergy Severe Rash/Hives Verified 12/30/24 23:04 Augmentin) - internal reaction clopidogrel (From Plavix) Allergy Severe Hives. Verified 12/30/24 23:04 Penicillins Allergy Intermediate HIVES Verified 12/30/24 23:04 methotrexate AdvReac Severe Blister Verified 12/30/24 23:04 amoxicillin AdvReac Intermediate Hives Verified 12/30/24 23:04 metformin AdvReac Intermediate diarrhea Verified 12/30/24 23:04 semaglutide (From Ozempic) AdvReac Intermediate pancreatiti Verified 12/30/24 23:04 s Sqelyup-NZV-FcQ Reductase AdvReac Intermediate fatigue, Verified 12/30/24 23:04 Inhibitor (Sxsxanf-Gom-Ogc extreme Reductase Inhibitor) Review of Systems Review of Systems ROS Unobtainable: All systems reviewed & are unremarkable except as noted in HPI and below Patient History Medical History Poor short term memory ICD (implantable cardioverter-defibrillator) in place (05/08/24) History of nephrolithiasis Chronic renal failure, stage 3a Overactive bladder Urinary incontinence Post laminectomy syndrome Mitral valve insufficiency Cardiomyopathy Chronic HFrEF (heart failure with reduced ejection fraction) Nonsustained paroxysmal ventricular tachycardia Mild claudication Recurrent falls Spinal stenosis Tinnitus Diabetes HLD (hyperlipidemia) Depression Incomplete bladder emptying Hayfever (1999) Shoulder pain (2011) Fracture (1951) Chronic back pain (1989) Hepatitis A (1963) Melanoma (1987) Gilbert's syndrome Femur fracture (1965) Primary osteoarthritis of both hips (08/30/15) Polymyalgia rheumatica (08/30/15) Type 2 diabetes mellitus without complication (06/05/15) Benign prostatic hyperplasia with urinary obstruction (03/25/15) Peripheral vascular disease (2009) Coronary artery disease involving [place] coronary artery of [place] heart without angina pectoris (1995) Essential hypertension Mixed hyperlipidemia Surgical History S/P total hip arthroplasty (09/22/24) History of lumbar spinal fusion (~02/2024) Hx of laminectomy (~12/2023) History of bilateral cataract extraction History of coronary artery stent placement (07/29/18) History of orthopedic surgery (1965) Status post appendectomy (1956) Status post coronary artery bypass graft (1995) Family History Father Colon cancer Prostate enlargement Bladder cancer History of hip surgery Pneumonia History of prostate surgery Mother Diabetes mellitus Heart disease Hypertension High cholesterol Osteoporosis History of cataract surgery H/O heart bypass surgery Arthritis Grandfather Arthritis Prostate cancer Colon cancer Deaf Legally blind Grandmother Diabetes mellitus Hypertension Angina pectoris Heart disease Osteoporosis Social History marital status: number of children: 0 household members: spouse lives independently: Yes caregiver/support person: No housing: house pets and animals: Yes education level: other occupational status: other 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: None travel history: other leisure activities: other Tobacco: How many years used: 20 Smokeless tobacco user: other quit status: quit date established second hand exposure: No alcohol intake: former substance use type: does not use and marijuana alcohol intake frequency: 0-2 drinks per day Exam Narrative Exam Narrative: General: Patient appears to be in no acute distress, acting appropriately Head: normocephalic, atraumatic, HEENT: Pupils equal round reactive, eyes tracking well, neck supple, no JVD Heart: regular rate and rhythm, no murmurs, rubs, or gallops heard Lungs: clear to auscultation, no adventitious sounds Abdomen: soft , nontender, nondistended, positive bowel sounds Neurological: no focal neurological signs, alert and oriented x3, Psych: good judgment ,good insight, mood is normal. Left knee has some edema around the lateral area. Can not flex or extend at this time without pain. Neurovascularly intact. Initial Vital Signs Initial Vital Signs: Vital Signs Temperature 98.2 F 12/30/24 23:04 Pulse Rate 77 12/30/24 23:04 Respiratory Rate 16 12/30/24 23:04 Blood Pressure 134/69 12/30/24 23:04 Pulse Oximetry 97 12/30/24 23:04 Oxygen Delivery Method Room Air 12/30/24 23:04 Course Orders Ordered: ED Orders 12/30/24 23:09 XR hip w pel RT 2V Stat 12/31/24 00:51 CT pelvis wo con Stat 12/31/24 01:06 BNP [NT-proBNP (BNP-Adult 18+)] Stat CBC Auto Diff [Complete Blood Count AUTO DIFF] Stat CMP [Comprehensive Metabolic Panel] Stat Discontinued Medications Acetaminophen (Acetaminophen 325 Mg Tablet) 975 mg PO NOW ONE Stop: 12/31/24 00:10 Last Admin: 12/31/24 00:13 Dose: 975 mg Documented By: CALISTA Consultations Consultation #1: consultation made with Dr. Lozoya who asked to have the medicine team admit the patient and be consulted. Consultation #2: Dr Barros consulted since patient is Dr. Medina patient. will be admitted as inpatient for now. Vital Signs Vital signs: Vital Signs - 8 hr 12/30/24 23:04 12/30/24 23:23 12/30/24 23:30 Temperature 98.2 F Pulse Rate 77 72 74 Respiratory Rate 16 Blood Pressure 134/69 Pulse Oximetry 97 95 94 Oxygen Delivery Method Room Air 12/30/24 23:30 12/31/24 00:08 12/31/24 00:08 Temperature Pulse Rate 73 Respiratory Rate Blood Pressure 130/66 136/65 Pulse Oximetry 97 Oxygen Delivery Method 12/31/24 00:30 12/31/24 00:30 Temperature Pulse Rate 71 Respiratory Rate Blood Pressure 138/73 Pulse Oximetry 97 Oxygen Delivery Method MDM - Extremity Injury (Lower) Lab Data 12/31/24 01:06 12/31/24 01:06 Labs: Lab Results 12/31/24 Range/Units 01:06 WBC 10.2 (4.5-11.0) X10^3/uL RBC 4.71 (4.5-5.9) X10^6/uL Hgb 11.6 L (13.5-17.5) g/dL Hct 36.7 L (41-53) % MCV 77.8 L (80-100) fL MCH 24.5 L (26-34) PG MCHC 31.5 (30-36) % RDW 19.4 H (11.6-14.8) % Plt Count 259 (150-400) X10^3/uL Neut % (Auto) 77.5 H (50-75) % Lymph % (Auto) 11.3 L (25-40) % Baldwin % (Auto) 9.4 (3-14) % Eos % (Auto) 1.2 L (2-4) % Baso % (Auto) 0.6 (0-2) % Neut # (Auto) 7900 H (9078-4891) /uL Lymph # (Auto) 1200 (4829-3784) /uL Baldwin # (Auto) 1000 H (0-900) /uL Eos # (Auto) 100 (0-450) /uL Baso # (Auto) 100 (0-100) /uL Sodium 137 (137-145) mmol/L Potassium 4.9 (3.4-5.1) mmol/L Chloride 106 (98-107) mmol/L Carbon Dioxide 21 L (22-32) mmol/L BUN 40 H (9-20) mg/dL Creatinine 1.45 H (0.66-1.25) mg/dL Estimated GFR 48 L (>60) mL/min BUN/Creatinine Ratio 27.6 H (6-22) Glucose 197 H (70-99) mg/dL Calcium 9.1 (8.4-10.2) mg/dL Total Bilirubin 0.6 (0.2-1.3) mg/dL AST 21 (17-59) IU/L ALT 17 (<50) IU/L Alkaline Phosphatase 106 (38-126) U/L NT-Pro-B Natriuret Pep 3400 H (<450) pg/mL Total Protein 7.8 (6.3-8.2) g/dL Albumin 4.7 (3.5-5.0) g/dL Globulin 3.1 (1.7-4.1) g/dL Albumin/Globulin Ratio 1.5 (1.0-2.8) Imaging Data Extremity x-ray #1: Radiologist's Impression: Acute periprosthetic fracture of the femur. pelvis ct : Radiologist's Impression: Acute periprosthetic right femur fracture MDM Narrative Medical decision making narrative: 84-year-old male with a recent right hip replacement who had a fall earlier this evening onto his right hip area that resulted in an acute periprosthetic right femur fracture. Orthopedic surgery was consulted who will see the patient in the a.m.. Patient will be admitted to the medicine team for now due to his chronic medical conditions including CHF and roe-tnfjbun-[id number] diabetes. Patient's pain is fairly well controlled while laying without movement. Discharge Plan Departure Patient Disposition: Admitted As Inpatient Clinical Impression: Periprosthetic fracture around internal prosthetic right hip joint Qualifiers: Encounter type: initial encounter Qualified Code(s): M97.01XA - Periprosthetic fracture around internal prosthetic right hip joint, initial encounter Admit Date/Time: 12/31/24 02:21
--- NOTE | 2024-12-31 00:51 | DI.CT.S_ITS ---
PROCEDURE: CT PEL WO CON INDICATIONS: right hip periprosthetic fracture TECHNIQUE: Noncontrast 3 mm axial sections acquired through the bony pelvis, with coronal and sagittal reformatting. COMPARISON: [facility], CT, CT PEL WO CON, 11/05/2024, 21:41. FINDINGS: Right total hip arthroplasty. Acute periprosthetic fracture of the intratrochanteric region of the right femur. Pre-existing trochanteric avulsion fracture has migrated proximally. Hardware alignment appears unchanged. Periprosthetic fluid collection and subcutaneous edema along the lateral right thigh. This fluid collection measures approximately 12.2 x 4.7 x 5.7 cm. Moderate left hip osteoarthritis. Osseous demineralization. Partially imaged fusion hardware in the lower lumbar spine. Atherosclerotic calcification. Prostomegaly. No free intraperitoneal fluid or hemorrhage. IMPRESSION: Acute periprosthetic right femur fracture. Dictated by: Gerson Jay M.D. on 12/31/2024 at 1:36 Approved by: Gerson aJy M.D. on 12/31/2024 at 1:41
[2024-12-31 01:24] LABS: Add Manual Diff / Slide Review NO; Hematocrit 36.7 % (41-53); Hemoglobin 11.6 g/dL (13.5-17.5); Lymphocytes Absolute Auto 1200 /uL (1100-4500); Mean Corpuscular HGB Conc 31.5 % (30-36); Mean Corpuscular Hemoglobin 24.5 PG (26-34); Mean Corpuscular Volume 77.8 fL (80-100); Platelet Count 259 X10^3/uL (150-400)
[2024-12-31 01:29] LABS: Alanine Aminotransferase 17 IU/L (<50); Albumin 4.7 g/dL (3.5-5.0); Albumin Globulin Ratio 1.5 (1.0-2.8); Alkaline Phosphatase 106 U/L (38-126); Blood Urea Nitrogen 40 mg/dL (9-20); Calcium 9.1 mg/dL (8.4-10.2); Carbon Dioxide 21 mmol/L (22-32); Chloride 106 mmol/L (98-107); Estimated Glomerular Filt Rate 48 mL/min (>60); Globulin 3.1 g/dL (1.7-4.1); Glucose 197 mg/dL (70-99); HEMOLYSIS < 15 (0-50); Potassium 4.9 mmol/L (3.4-5.1); Sodium 137 mmol/L (137-145); Total Protein 7.8 g/dL (6.3-8.2)
[2024-12-31 01:37] LABS: NT-proBNP (BNP-Adult 18+) 3400 pg/mL (<450)
[2024-12-31] MEDS: SODIUM CHLORIDE 0.9% 1,000 ML 100 ML IV (06:26)
--- NOTE | 2024-12-31 07:11 | PM.HP.IH.1 ---
History of Present Illness History of Present Illness Date Patient Seen: 12/31/24 Chief complaint: RIGHT Hip Pain Narrative: 84yo M with a past medical history of heart failure, ICD, CAD, stents, chronic kidney disease, DM2, hyperlipidemia and hypertension who was admitted overnight for right hip pain following a ground level fall. He underwent a right total hip with Dr. Osei on September 22, 2024. He has had previous postoperative hip pain that brought him to the emergency department on November 05. A CT scan was obtained which demonstrated a greater troch fracture and potential hardware loosening. Yesterday he had a ground level fall and had significant increase in his right hip pain. He was then brought into the emergency department where they obtained radiographs and a CT scan which demonstrated a new fracture about the inner troch region. [facility] Medical History Poor short term memory ICD (implantable cardioverter-defibrillator) in place (05/08/24) History of nephrolithiasis Chronic renal failure, stage 3a Overactive bladder Urinary incontinence Post laminectomy syndrome Mitral valve insufficiency Cardiomyopathy Chronic HFrEF (heart failure with reduced ejection fraction) Nonsustained paroxysmal ventricular tachycardia Mild claudication Recurrent falls Spinal stenosis Tinnitus Diabetes HLD (hyperlipidemia) Depression Incomplete bladder emptying Hayfever (1999) Shoulder pain (2011) Fracture (1951) Chronic back pain (1989) Hepatitis A (1963) Melanoma (1987) Gilbert's syndrome Femur fracture (1965) Primary osteoarthritis of both hips (08/30/15) Polymyalgia rheumatica (08/30/15) Type 2 diabetes mellitus without complication (06/05/15) Benign prostatic hyperplasia with urinary obstruction (03/25/15) Peripheral vascular disease (2009) Coronary artery disease involving [place] coronary artery of [place] heart without angina pectoris (1995) Essential hypertension Mixed hyperlipidemia Surgical History S/P total hip arthroplasty (09/22/24) History of lumbar spinal fusion (~02/2024) Hx of laminectomy (~12/2023) History of bilateral cataract extraction History of coronary artery stent placement (07/29/18) History of orthopedic surgery (1965) Status post appendectomy (1956) Status post coronary artery bypass graft (1995) Family History Father Colon cancer Prostate enlargement Bladder cancer History of hip surgery Pneumonia History of prostate surgery Mother Diabetes mellitus Heart disease Hypertension High cholesterol Osteoporosis History of cataract surgery H/O heart bypass surgery Arthritis Grandfather Arthritis Prostate cancer Colon cancer Deaf Legally blind Grandmother Diabetes mellitus Hypertension Angina pectoris Heart disease Osteoporosis Social History marital status: number of children: 0 household members: spouse lives independently: Yes caregiver/support person: No housing: house pets and animals: Yes education level: other occupational status: other 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/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: None travel history: other leisure activities: other Tobacco: How many years used: 20 Smokeless tobacco user: other quit status: quit date established second hand exposure: No alcohol intake: former substance use type: does not use and marijuana Meds Home Medications and Allergies Home Medications ?Medication ?Instructions ?Recorded ?Confirmed ?Type rosuvastatin 20 mg tablet 20 mg PO QPM 08/17/20 12/31/24 History blood-glucose meter #1 ea 08/04/21 12/22/24 Rx blood sugar diagnostic (Blood #100 ea 10/31/21 12/22/24 Rx Glucose Test strips) lancets 33 gauge (BD Ultra Fine #100 ea 10/31/21 12/22/24 Rx Lancets) Disabled Parking #1 ea 03/27/22 12/22/24 Rx isosorbide dinitrate 20 mg tablet 20 mg PO BID #1 tab 04/23/23 12/31/24 Rx leflunomide 20 mg tablet 20 mg PO DAILY 09/02/23 12/31/24 History vitamin B complex 1 tab PO DAILY 12/11/23 12/22/24 History torsemide 20 mg tablet 20 - 40 mg (1 - 2 x 20 mg) PO 12/13/23 12/22/24 Rx DAILY #180 tabs albuterol sulfate 90 mcg/actuation 2 puff inhalation Q4-6H PRN 01/28/24 12/31/24 Rx aerosol inhaler shortness of breath or wheezing #8.5 grams famotidine 20 mg tablet 20 mg PO BID #180 tabs 02/11/24 12/31/24 Rx empagliflozin 10 mg tablet 10 mg PO DAILY 03/11/24 12/31/24 History (Jardiance) spironolactone 25 mg tablet 25 mg PO DAILY 03/11/24 12/22/24 History sacubitril 49 mg-valsartan 51 mg 0.5 tab PO BID 04/28/24 12/31/24 History tablet (Entresto) tamsulosin 0.4 mg capsule (Flomax) 0.4 mg PO BID #180 tabs 05/20/24 12/22/24 Rx pantoprazole 40 mg tablet,delayed 40 mg PO BID #180 tabs 08/05/24 12/31/24 Rx release magnesium oxide 400 mg PO BID #60 tabs 08/06/24 12/31/24 Rx tolterodine 4 mg capsule,extended 4 mg PO DAILY #90 caps 09/15/24 12/22/24 Rx release 24 hr sertraline 100 mg tablet 150 mg (1.5 x 100 mg) PO DAILY 09/18/24 12/22/24 Rx #135 tabs aspirin 81 mg tablet,delayed 81 mg PO BID #90 tabs 09/26/24 12/31/24 Rx release (Adult Low Dose Aspirin) folic acid 1 mg tablet 1 mg PO DAILY #90 tabs 10/02/24 12/31/24 Rx carvedilol 12.5 mg tablet 12.5 mg PO BID 10/26/24 12/31/24 History torsemide 10 mg tablet 10 mg PO DAILY 10/26/24 12/22/24 History glipizide 10 mg tablet, extended 10 mg PO BID #180 tabs 11/17/24 12/31/24 Rx release 24 hr tirzepatide 2.5 mg/0.5 mL 2.5 mg (0.5 mL) SUBCUT QWEEK #2 mL 12/24/24 Rx subcutaneous pen injector (Mounjaro) tirzepatide 5 mg/0.5 mL 5 mg (0.5 mL) SUBCUT QWEEK #2 mL 12/24/24 Rx subcutaneous pen injector (Mounjaro) gabapentin 100 mg capsule 200 mg PO ONCE PM 12/31/24 12/31/24 History Allergies Allergy/AdvReac Type Severity Reaction Status Date / Time clavulanic acid (From Allergy Severe Rash/Hives Verified 12/30/24 23:04 Augmentin) - internal reaction clopidogrel (From Plavix) Allergy Severe Hives. Verified 12/30/24 23:04 Penicillins Allergy Intermediate HIVES Verified 12/30/24 23:04 methotrexate AdvReac Severe Blister Verified 12/30/24 23:04 amoxicillin AdvReac Intermediate Hives Verified 12/30/24 23:04 metformin AdvReac Intermediate diarrhea Verified 12/30/24 23:04 semaglutide (From Ozempic) AdvReac Intermediate pancreatiti Verified 12/30/24 23:04 s Lqfyscw-KQA-QoY Reductase AdvReac Intermediate fatigue, Verified 12/30/24 23:04 Inhibitor (Bzbiyjj-Qea-Chb extreme Reductase Inhibitor) Exam Vital Signs (past 8 hours): - 12/30/24 23:23 12/30/24 23:30 12/30/24 23:30 Pulse Rate 72 74 Blood Pressure 130/66 Pulse Oximetry 95 94 12/31/24 00:08 12/31/24 00:08 12/31/24 00:30 Pulse Rate 73 Blood Pressure 136/65 138/73 Pulse Oximetry 97 12/31/24 00:30 12/31/24 02:16 12/31/24 02:17 Pulse Rate 71 68 68 Blood Pressure Pulse Oximetry 97 96 95 12/31/24 02:17 12/31/24 02:30 12/31/24 02:30 Pulse Rate 67 Blood Pressure 112/60 113/62 Pulse Oximetry 94 12/31/24 03:00 12/31/24 03:00 12/31/24 03:30 Pulse Rate 60 Blood Pressure 111/58 L 112/58 L Pulse Oximetry 94 12/31/24 03:30 12/31/24 04:00 12/31/24 04:00 Pulse Rate 62 63 Blood Pressure 113/59 L Pulse Oximetry 92 93 12/31/24 04:30 12/31/24 04:30 Pulse Rate 60 Blood Pressure 112/59 L Pulse Oximetry 94 Oxygen Delivery Method Room Air Narrative Exam Narrative: RIGHT Hip: Inspection: Surgical site is well healed. Appears to have a hematoma however no sking changes. No erythema, swelling, bruising, atrophy. ROM deferred due to known fracture Neurovascular exam: Fires q/h/ta/gc/ehl; SILT s/s/sp/dp/t, 2+ dp Imaging: Radiographs of the right hip on December 30, 2024: Evidence of prior total hip arthroplasty. Appears to be a new fracture line off the anterior portion of the proximal femur. CT scan of the pelvis on December 30, 2024: There appears to be a new fracture line within the intertrochanteric region. Still can visualize the previously seen greater troch fracture. Implant appears to be unchanged. Objective Labs 12/31/24 01:06 12/31/24 01:06 Labs: Laboratory Results - last 24 hr 12/31/24 01:06 WBC 10.2 RBC 4.71 Hgb 11.6 L Hct 36.7 L MCV 77.8 L MCH 24.5 L MCHC 31.5 RDW 19.4 H Plt Count 259 Neut % (Auto) 77.5 H Lymph % (Auto) 11.3 L [place] % (Auto) 9.4 Eos % (Auto) 1.2 L Baso % (Auto) 0.6 Neut # (Auto) 7900 H Lymph # (Auto) 1200 [place] # (Auto) 1000 H Eos # (Auto) 100 Baso # (Auto) 100 Sodium 137 Potassium 4.9 Chloride 106 Carbon Dioxide 21 L BUN 40 H Creatinine 1.45 H Estimated GFR 48 L BUN/Creatinine Ratio 27.6 H Glucose 197 H Calcium 9.1 Total Bilirubin 0.6 AST 21 ALT 17 Alkaline Phosphatase 106 NT-Pro-B Natriuret Pep 3400 H Total Protein 7.8 Albumin 4.7 Globulin 3.1 Albumin/Globulin Ratio 1.5 Assessment & Plan Assessment & Plan narrative: 84yo M with history, physical exam and imaging findings consistent with a right hip periprosthetic fracture. In review of his imaging it appears that his femoral implant is still in place and not loose. We will continue to treat nonoperatively with weight-bearing as tolerated and range motion as tolerated. I explained to the patient that he will likely have pain as this fracture continues to heal. However if the implant is stable the fractured should heal. He will work with physical therapy and will likely require a senior care facility placement. He will follow up with Dr. Verma approximately 2 weeks for repeat x-rays and clinical exam. The patient had the treatment plan explained, questions answered and seemed satisfied with the plan. There were no apparent barriers to communication. The documentation in this note may have been entered with the assistance of computer voice recognition and dictation software. Therefore, it may contain unintended errors in text, spelling, punctuation, or grammar. Jackson Lozoya MD Orthopedic Surgeon Time-Based Coding :: 60 minutes spent with patient and on the chart (including review of chart, obtaining history, exam, reviewing outside data, placing orders, documenting exam and treatment plan, and counseling patient) on 12/31/24. [employer] Document charge(s): Yes
--- NOTE | 2024-12-31 08:45 | PM.HP.IH.1 ---
History of Present Illness History of Present Illness Date Patient Seen: 12/31/24 Chief complaint: RIGHT Hip Pain Narrative: 84-year-old male with CHF, ICD, CAD s/p PCI, diabetes, CKD, hypertension admitted on behalf of Dr. Medina. Patient underwent right total hip replacement with Dr. Osei on 09/22/2024. Yesterday he had a ground level fall in his kitchen when he lost his footing and twisted around, landed on right hip. Presented to ER for evaluation due to pain and inability to move leg. XR and CT hip demonstrated acute periprosthetic right femoral fracture. Evaluation otherwise notable for hemoglobin 11.6, MCV 77.8, creatinine 1.45, GFR 48, glucose 197, BNP 3400; remainder of CBC, CMP without significant derangements. Orthopedics consulted and will advise on plan once images reviewed. FOR[facility]LY [facility] Medical History Poor short term memory ICD (implantable cardioverter-defibrillator) in place (05/08/24) History of nephrolithiasis Chronic renal failure, stage 3a Overactive bladder Urinary incontinence Post laminectomy syndrome Mitral valve insufficiency Cardiomyopathy Chronic HFrEF (heart failure with reduced ejection fraction) Nonsustained paroxysmal ventricular tachycardia Mild claudication Recurrent falls Spinal stenosis Tinnitus Diabetes HLD (hyperlipidemia) Depression Incomplete bladder emptying Hayfever (1999) Shoulder pain (2011) Fracture (1951) Chronic back pain (1989) Hepatitis A (1963) Melanoma (1987) Gilbert's syndrome Femur fracture (1965) Primary osteoarthritis of both hips (08/30/15) Polymyalgia rheumatica (08/30/15) Type 2 diabetes mellitus without complication (06/05/15) Benign prostatic hyperplasia with urinary obstruction (03/25/15) Peripheral vascular disease (2009) Coronary artery disease involving [place] coronary artery of [place] heart without angina pectoris (1995) Essential hypertension Mixed hyperlipidemia Surgical History S/P total hip arthroplasty (09/22/24) History of lumbar spinal fusion (~02/2024) Hx of laminectomy (~12/2023) History of bilateral cataract extraction History of coronary artery stent placement (07/29/18) History of orthopedic surgery (1965) Status post appendectomy (1956) Status post coronary artery bypass graft (1995) Family History Father Colon cancer Prostate enlargement Bladder cancer History of hip surgery Pneumonia History of prostate surgery Mother Diabetes mellitus Heart disease Hypertension High cholesterol Osteoporosis History of cataract surgery H/O heart bypass surgery Arthritis Grandfather Arthritis Prostate cancer Colon cancer Deaf Legally blind Grandmother Diabetes mellitus Hypertension Angina pectoris Heart disease Osteoporosis Social History marital status: number of children: 0 household members: spouse lives independently: Yes caregiver/support person: No housing: house pets and animals: Yes education level: other occupational status: other 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/rastafari: None travel history: other leisure activities: other Tobacco: How many years used: 20 Smokeless tobacco user: other quit status: quit date established second hand exposure: No alcohol intake: former substance use type: does not use and marijuana Meds Home Medications and Allergies Home Medications ?Medication ?Instructions ?Recorded ?Confirmed ?Type rosuvastatin 20 mg tablet 20 mg PO QPM 08/17/20 12/31/24 History blood-glucose meter #1 ea 08/04/21 12/22/24 Rx blood sugar diagnostic (Blood #100 ea 10/31/21 12/22/24 Rx Glucose Test strips) lancets 33 gauge (BD Ultra Fine #100 ea 10/31/21 12/22/24 Rx Lancets) Disabled Parking #1 ea 03/27/22 12/22/24 Rx isosorbide dinitrate 20 mg tablet 20 mg PO BID #1 tab 04/23/23 12/31/24 Rx leflunomide 20 mg tablet 20 mg PO DAILY 09/02/23 12/31/24 History vitamin B complex 1 tab PO DAILY 12/11/23 12/22/24 History torsemide 20 mg tablet 20 - 40 mg (1 - 2 x 20 mg) PO 12/13/23 12/22/24 Rx DAILY #180 tabs albuterol sulfate 90 mcg/actuation 2 puff inhalation Q4-6H PRN 01/28/24 12/31/24 Rx aerosol inhaler shortness of breath or wheezing #8.5 grams famotidine 20 mg tablet 20 mg PO BID #180 tabs 02/11/24 12/31/24 Rx empagliflozin 10 mg tablet 10 mg PO DAILY 03/11/24 12/31/24 History (Jardiance) spironolactone 25 mg tablet 25 mg PO DAILY 03/11/24 12/22/24 History sacubitril 49 mg-valsartan 51 mg 0.5 tab PO BID 04/28/24 12/31/24 History tablet (Entresto) tamsulosin 0.4 mg capsule (Flomax) 0.4 mg PO BID #180 tabs 05/20/24 12/22/24 Rx pantoprazole 40 mg tablet,delayed 40 mg PO BID #180 tabs 08/05/24 12/31/24 Rx release magnesium oxide 400 mg PO BID #60 tabs 08/06/24 12/31/24 Rx tolterodine 4 mg capsule,extended 4 mg PO DAILY #90 caps 09/15/24 12/22/24 Rx release 24 hr sertraline 100 mg tablet 150 mg (1.5 x 100 mg) PO DAILY 09/18/24 12/22/24 Rx #135 tabs aspirin 81 mg tablet,delayed 81 mg PO BID #90 tabs 09/26/24 12/31/24 Rx release (Adult Low Dose Aspirin) folic acid 1 mg tablet 1 mg PO DAILY #90 tabs 10/02/24 12/31/24 Rx carvedilol 12.5 mg tablet 12.5 mg PO BID 10/26/24 12/31/24 History torsemide 10 mg tablet 10 mg PO DAILY 10/26/24 12/22/24 History glipizide 10 mg tablet, extended 10 mg PO BID #180 tabs 11/17/24 12/31/24 Rx release 24 hr tirzepatide 2.5 mg/0.5 mL 2.5 mg (0.5 mL) SUBCUT QWEEK #2 mL 12/24/24 Rx subcutaneous pen injector (Mounjaro) tirzepatide 5 mg/0.5 mL 5 mg (0.5 mL) SUBCUT QWEEK #2 mL 12/24/24 Rx subcutaneous pen injector (Mounjaro) gabapentin 100 mg capsule 200 mg PO ONCE PM 12/31/24 12/31/24 History Allergies Allergy/AdvReac Type Severity Reaction Status Date / Time clavulanic acid (From Allergy Severe Rash/Hives Verified 12/30/24 23:04 Augmentin) - internal reaction clopidogrel (From Plavix) Allergy Severe Hives. Verified 12/30/24 23:04 Penicillins Allergy Severe Zav[place]-Butch Verified 12/31/24 15:21 Syndrome amoxicillin AdvReac Severe Zavala-Butch Verified 12/31/24 15:21 Syndrome methotrexate AdvReac Severe Blister Verified 12/30/24 23:04 metformin AdvReac Intermediate diarrhea Verified 12/30/24 23:04 semaglutide (From Ozempic) AdvReac Intermediate pancreatiti Verified 12/30/24 23:04 s [id number]-FaL Reductase AdvReac Intermediate fatigue, Verified 12/30/24 23:04 Inhibitor (Aawexba-Vxl-Zkl extreme Reductase Inhibitor) Review of Systems Review of Systems ROS: Yes All systems reviewed with the patient and are negative except as otherwise documented Exam Vital Signs (past 8 hours): - 12/31/24 02:16 12/31/24 02:17 12/31/24 02:17 Pulse Rate 68 68 Blood Pressure 112/60 Pulse Oximetry 96 95 Oxygen Delivery Method 12/31/24 02:30 12/31/24 02:30 12/31/24 03:00 Pulse Rate 67 60 Blood Pressure 113/62 Pulse Oximetry 94 94 Oxygen Delivery Method 12/31/24 03:00 12/31/24 03:30 12/31/24 03:30 Pulse Rate 62 Blood Pressure 111/58 L 112/58 L Pulse Oximetry 92 Oxygen Delivery Method 12/31/24 04:00 12/31/24 04:00 12/31/24 04:30 Pulse Rate 63 Blood Pressure 113/59 L 112/59 L Pulse Oximetry 93 Oxygen Delivery Method 12/31/24 04:30 12/31/24 04:54 12/31/24 06:00 Pulse Rate 60 Blood Pressure 119/59 L Pulse Oximetry 94 96 Oxygen Delivery Method Room Air Oxygen Delivery Method Room Air Narrative Exam Narrative: General: Pleasant, NAD HEENT: NC/AT, EOMI, moist membranes CV: RRR, normal S1-S2, no m/g/r Resp: CTAB, comfortable WOB Abd: Soft, NTND, +BS Ext: RLE immobile due to known fracture, no edema Skin: No rash or lesions noted Neuro: A&O x3, no focal deficits Objective Imaging CT scan - pelvis: Radiologist's impression: CT PEL WO CON FINDINGS: Right total hip arthroplasty. Acute periprosthetic fracture of the intratrochanteric region of the right femur. Pre-existing trochanteric avulsion fracture has migrated proximally. Hardware alignment appears unchanged. Periprosthetic fluid collection and subcutaneous edema along the lateral right thigh. This fluid collection measures approximately 12.2 x 4.7 x 5.7 cm. Moderate left hip osteoarthritis. Osseous demineralization. Partially imaged fusion hardware in the lower lumbar spine. Atherosclerotic calcification. Prostomegaly. No free intraperitoneal fluid or hemorrhage. IMPRESSION: Acute periprosthetic right femur fracture. Dictated by: Gerson Jay M.D. on 12/31/2024 at 1:36 Approved by: Gerson Jay M.D. on 12/31/2024 at 1:41 Labs 12/31/24 01:06 12/31/24 01:06 Labs: Laboratory Results - last 24 hr 12/31/24 12/31/24 01:06 08:41 WBC 10.2 RBC 4.71 Hgb 11.6 L Hct 36.7 L MCV 77.8 L MCH 24.5 L MCHC 31.5 RDW 19.4 H Plt Count 259 Neut % (Auto) 77.5 H Lymph % (Auto) 11.3 L [place] % (Auto) 9.4 Eos % (Auto) 1.2 L Baso % (Auto) 0.6 Neut # (Auto) 7900 H Lymph # (Auto) 1200 [place] # (Auto) 1000 H Eos # (Auto) 100 Baso # (Auto) 100 Sodium 137 Potassium 4.9 Chloride 106 Carbon Dioxide 21 L BUN 40 H Creatinine 1.45 H Estimated GFR 48 L BUN/Creatinine Ratio 27.6 H Glucose 197 H POC Whole Bld Glucose 142 H Calcium 9.1 Total Bilirubin 0.6 AST 21 ALT 17 Alkaline Phosphatase 106 NT-Pro-B Natriuret Pep 3400 H Total Protein 7.8 Albumin 4.7 Globulin 3.1 Albumin/Globulin Ratio 1.5 Assessment & Plan Assessment and plan (1) Periprosthetic fracture around internal prosthetic right hip joint: Qualifiers: Encounter type: initial encounter Qualified Code(s): M97.01XA - Periprosthetic fracture around internal prosthetic right hip joint, initial encounter Status: Acute (2) Coronary artery disease involving [place] coronary artery of [place] heart without angina pectoris: Status: Chronic (3) Cardiomyopathy: Qualifiers: Cardiomyopathy type: unspecified Qualified Code(s): I42.9 - Cardiomyopathy, unspecified Status: Chronic (4) Mixed hyperlipidemia: Status: Chronic (5) Chronic HFrEF (heart failure with reduced ejection fraction): Status: Chronic (6) Essential hypertension: Status: Chronic (7) Chronic renal failure, stage 3a: Status: Chronic (8) Type 2 diabetes mellitus without complication: Status: Chronic (9) Benign prostatic hyperplasia with urinary obstruction: Status: Chronic (10) Overactive bladder: Status: Chronic Assessment & Plan narrative: 84-year-old male with CHF, ICD, CAD s/p PCI, diabetes, CKD, hypertension admitted for periprosthetic right hip fracture after GLF. #acute periprosthetic right femoral fracture S/p GLF last night. Dr. Lozoya (orthopedics) consulting, appreciate recommendations. Appears his femoral implant is still in place, plan to treat nonoperatively with weight-bearing and range of motion as tolerated. -acetaminophen/hydrocodone pain scale -bowel regimen -PT -SNF discharge likely #CAD #cardiomyopathy #hyperlipidemia -home ASA, atorvastatin, carvedilol, isosorbide mononitrate #CHF #hypertension -home sacubitril-valsartan, spironolactone, torsemide #CKD 3A -home ARB therapy #T2DM Normally takes glipizide, empagliflozin, tirzepatide at home -moderate ISS #BPH -home tamsulosin #OAB -home oxybutynin Dispo: Acute care Diet: Carb consistent GI ppx: PPI DVT ppx: Lovenox Code: FULL PCP: Carol MDM: Vicky Km (, ) Time-Based Coding :: 35 minutes spent with patient and on the chart (including review of chart, obtaining history, exam, reviewing outside data, placing orders, documenting exam and treatment plan, and counseling patient) on 12/31/2024. PROFEE Product Support Engineer Document charge(s): Yes Charge Codes Initial inpatient/observation care: 06200
[2024-12-31] MEDS: GABAPENTIN 300 MG CAPSULE PO ×2 (08:46→20:49)
[2024-12-31] MEDS: oxyBUTYnin ER 5 MG TABLET 10 MG PO (08:46)
[2024-12-31] MEDS: TAMSULOSIN 0.4 MG CAPSULE PO ×2 (08:46→20:49)
[2024-12-31] MEDS: SERTRALINE 50 MG TABLET 150 MG PO (08:47)
[2024-12-31] MEDS: MAGNESIUM OXIDE 400 MG TABLET PO ×2 (08:47→20:49)
[2024-12-31] MEDS: PANTOPRAZOLE DR 40 MG TABLET PO ×2 (08:47→20:49)
[2024-12-31] MEDS: ISOSORBIDE MONONITRATE ER 30 MG TABLET PO (08:48)
[2024-12-31] MEDS: SPIRONOLACTONE 25 MG TABLET PO (08:48)
[2024-12-31] MEDS: FOLIC ACID 1 MG TABLET PO (08:49)
--- NOTE | 2024-12-31 09:16 | PC.NURSE ---
Spoke with Vicky patient's , she will bring in patients Jaurdiance and Entresto from home as they are not on formulary at hospital.
[2024-12-31] MEDS: ACETAMINOPHEN 325 MG TABLET 650 MG PO (09:57)
--- NOTE | 2024-12-31 10:16 | PC.NURSE ---
Addendum entered by Ene Renner RN 12/31/24 10:19: *Jardiance Original Note: brought in patients home dose of Jaurdiance and Entresto. Patient taking.
[2024-12-31] MEDS: DOCUSATE 100 MG CAPSULE PO (20:49)
[2024-12-31] MEDS: ATORVASTATIN 20 MG TABLET 40 MG PO (20:49)
[2025-01-01] VITALS (7 sets, daily range): BP systolic 101–123; BP diastolic 54–70; PULSE 60–67; RESP 18–19; TEMP 35.7–36.4; O2SAT 93–97
--- NOTE | 2025-01-01 06:49 | P.PN_ITS ---
Subjective Subjective Date Patient Seen: 01/01/25 Time Patient Seen: 06:49 Interval history: 84-year-old male well known to me with significant cardiac disease as well as diabetes. Fell at home sustaining a periprosthetic fracture around his somewhat freshly replaced right hip. Seen in consultation by Orthopedic surgery did not feel like he needs additional surgical intervention as his hardware appears to be stable. Has yet to be seen by Physical therapy. Reports that he can move his right leg even while supine in bed with less discomfort than yesterday so perhaps that is a good sign Blood sugars have been adequately controlled, no evidence of congestive heart failure which has been an issue based on his cardiomyopathy etcetera. No chest pain shortness of breath, or other cardiovascular symptoms Exam Vital Signs (past 8 hours): - 01/01/25 05:45 Temperature 96.6 F L Pulse Rate 63 Respiratory Rate 18 Blood Pressure 102/54 L Pulse Oximetry 95 Oxygen Delivery Method Room Air Oxygen Flow Rate 0 Objective Labs 12/31/24 01:06 12/31/24 01:06 Labs: Laboratory Results - last 24 hr 12/31/24 12/31/24 12/31/24 08:41 16:29 20:05 POC Whole Bld Glucose 142 H 101 H 118 H PFSH Medical History Poor short term memory ICD (implantable cardioverter-defibrillator) in place (05/08/24) History of nephrolithiasis Chronic renal failure, stage 3a Overactive bladder Urinary incontinence Post laminectomy syndrome Mitral valve insufficiency Cardiomyopathy Chronic HFrEF (heart failure with reduced ejection fraction) Nonsustained paroxysmal ventricular tachycardia Mild claudication Recurrent falls Spinal stenosis Tinnitus Diabetes HLD (hyperlipidemia) Depression Incomplete bladder emptying Hayfever (1999) Shoulder pain (2011) Fracture (1951) Chronic back pain (1989) Hepatitis A (1963) Melanoma (1987) Gilbert's syndrome Femur fracture (1965) Primary osteoarthritis of both hips (08/30/15) Polymyalgia rheumatica (08/30/15) Type 2 diabetes mellitus without complication (06/05/15) Benign prostatic hyperplasia with urinary obstruction (03/25/15) Peripheral vascular disease (2009) Coronary artery disease involving [place] coronary artery of [place] heart without angina pectoris (1995) Essential hypertension Mixed hyperlipidemia Surgical History S/P total hip arthroplasty (09/22/24) History of lumbar spinal fusion (~02/2024) Hx of laminectomy (~12/2023) History of bilateral cataract extraction History of coronary artery stent placement (07/29/18) History of orthopedic surgery (1965) Status post appendectomy (1956) Status post coronary artery bypass graft (1995) Family History Father Colon cancer Prostate enlargement Bladder cancer History of hip surgery Pneumonia History of prostate surgery Mother Diabetes mellitus Heart disease Hypertension High cholesterol Osteoporosis History of cataract surgery H/O heart bypass surgery Arthritis Grandfather Arthritis Prostate cancer Colon cancer Deaf Legally blind Grandmother Diabetes mellitus Hypertension Angina pectoris Heart disease Osteoporosis Social History marital status: number of children: 0 household members: spouse lives independently: Yes caregiver/support person: No housing: house pets and animals: Yes education level: other occupational status: other 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/yazdanism: None travel history: other leisure activities: other Smoking Status: Former smoker Tobacco: How many years used: 20 Smokeless tobacco user: other quit status: quit date established second hand exposure: No alcohol intake: former substance use type: does not use and marijuana Assessment & Plan Assessment & Plan narrative: 1. Right periprosthetic femur fracture-continue conservative management as per Orthopedic surgery. Okay for physical therapy and likely will need placement in shelter 2. Diabetes type 2-continue current medications blood sugar control seems adequate 3. Chronic heart failure with reduced ejection fraction-patient appears to be euvolemic currently. Continue current medications as ordered upon admission 4. Hypertension-modestly low as is his standard as an outpatient. Likely due to his multiple cardiac medications. No change necessary at this time in my opinion in any of his cardiovascular medications 5. Coronary artery disease-no evidence of active coronary disease. Continue secondary preventive medications as above 6. Disposition-seems likely patient will require shelter placement when ready for discharge, but that has yet to be determined as patient has not yet even been up with physical therapy etcetera Time-Based Coding :: [TOTAL MINUTES] spent with patient and on the chart (including review of chart, obtaining history, exam, reviewing outside data, placing orders, documenting exam and treatment plan, and counseling patient) on [DATE]. PROFEE Returned Goods Receiving Clerk Document charge(s): Yes Charge Codes Subsequent inpatient/observation care: [id number]
[2025-01-01] MEDS: SPIRONOLACTONE 25 MG TABLET PO (08:23)
[2025-01-01] MEDS: oxyBUTYnin ER 5 MG TABLET 10 MG PO (08:24)
[2025-01-01] MEDS: MAGNESIUM OXIDE 400 MG TABLET PO ×2 (08:24→19:45)
[2025-01-01] MEDS: GABAPENTIN 300 MG CAPSULE PO ×2 (08:25→19:45)
[2025-01-01] MEDS: DOCUSATE 100 MG CAPSULE PO ×2 (08:25→19:45)
[2025-01-01] MEDS: SERTRALINE 50 MG TABLET 150 MG PO (08:25)
[2025-01-01] MEDS: ISOSORBIDE MONONITRATE ER 30 MG TABLET PO (08:25)
[2025-01-01] MEDS: ENOXAPARIN 40 MG/0.4 ML SYRINGE SUBCUT (08:25)
[2025-01-01] MEDS: FOLIC ACID 1 MG TABLET PO (08:25)
[2025-01-01] MEDS: TAMSULOSIN 0.4 MG CAPSULE PO ×2 (08:25→19:45)
[2025-01-01] MEDS: PANTOPRAZOLE DR 40 MG TABLET PO ×2 (08:25→19:48)
--- NOTE | 2025-01-01 11:10 | PT.IIE ---
Current Diagnoses Type 2 diabetes mellitus without complications (12/31/24) Mixed hyperlipidemia (12/31/24) Essential (primary) hypertension (12/31/24) Atherosclerotic heart disease of [place] coronary artery without angina pectoris (12/31/24) Cardiomyopathy, unspecified (12/31/24) Chronic systolic (congestive) heart failure (12/31/24) Periprosthetic fracture around internal prosthetic right hip joint, initial encounter (12/31/24) Other obstructive and reflux uropathy (12/31/24) Chronic kidney disease, stage 3a (12/31/24) Overactive bladder (12/31/24) Benign prostatic hyperplasia with lower urinary tract symptoms (12/31/24) Unspecified trochanteric fracture of right femur, initial encounter for closed fracture (12/31/24) Surgical History (Last Reviewed 11/05/24 @ 22:26 by Guerline Holden DO) History of bilateral cataract extraction History of coronary artery stent placement (07/29/18) History of lumbar spinal fusion (~02/2024) History of orthopedic surgery (1965) Hx of laminectomy (~12/2023) S/P total hip arthroplasty (09/22/24) Status post appendectomy (1956) Status post coronary artery bypass graft (1995) Medical History (Last Reviewed 11/05/24 @ 22:26 by Guerline Holden DO) Benign prostatic hyperplasia with urinary obstruction (03/25/15) Cardiomyopathy Chronic back pain (1989) Chronic HFrEF (heart failure with reduced ejection fraction) Chronic renal failure, stage 3a Coronary artery disease involving [place] coronary artery of [place] heart without angina pectoris (1995) Depression Diabetes Essential hypertension Femur fracture (1965) Fracture (1951) Gilbert's syndrome Hayfever (1999) Hepatitis A (1963) History of nephrolithiasis HLD (hyperlipidemia) ICD (implantable cardioverter-defibrillator) in place (05/08/24) Incomplete bladder emptying Melanoma (1987) Mild claudication Mitral valve insufficiency Mixed hyperlipidemia Nonsustained paroxysmal ventricular tachycardia Overactive bladder Peripheral vascular disease (2009) Polymyalgia rheumatica (08/30/15) Poor short term memory Post laminectomy syndrome Primary osteoarthritis of both hips (08/30/15) Recurrent falls Shoulder pain (2011) Spinal stenosis Tinnitus Type 2 diabetes mellitus without complication (06/05/15) Urinary incontinence Physical Therapy Inpatient Evaluation/Re-Eval M1 PT/OT-IP Prior Functional Status Start: 01/01/25 12:55 Freq: NEEDED Status: Active Protocol: Document 01/01/25 11:10 AB (Rec: 01/01/25 13:16 AB [id number]) Medical Review Prior Functional Status Medical History Yes Reviewed Communication able to make needs known Mobility and Gait pt stated that he was modified independent with all mobilities and ambulation using a 4WW long distance indoors, SPC short distances indoors/outdoors and FWW for long distance outdoor mobility Social History Household Members spouse Living Arrangements House Number of Floors ( One Floor Floors) Number of Stairs To 2 steps L rail ascending Enter/Railing? Home Environment Standard Height Toilet,Walk in Shower Home Equipment Front Wheel Walker,Four Wheel Walker,Straight Cane, Raised Toilet Seat w/Armrests,Shower Seat with Backrest ,Hand Held Shower,Grab Bars In Shower Additional Social spouse will not be able to assist much per pt History Comment M2 PT-IP Current Condition Start: 01/01/25 12:55 Freq: NEEDED Status: Active Protocol: Document 01/01/25 11:10 AB (Rec: 01/01/25 13:16 AB [id number]) Physical Therapy Current Condition Current Condition Evaluation Date 01/01/25 Treatment Diagnosis R hip periprosthetic fx; difficulty in walking Onset Date 12/31/24 M3 PT-IP Subjective Start: 01/01/25 12:55 Freq: NEEDED Status: Active Protocol: Document 01/01/25 11:10 AB (Rec: 01/01/25 13:16 AB [id number]) Subjective Physical Therapy Visit Type Type Initial Evaluation Visit Start Time 11:10 Visit Stop Time 11:55 Notes PT eval order received. EMR reviewed. Called orthopedic doctor's office to clarify weight bearing status and if pt will need to observe R posterior hip precautions. Informed doctor's safety instruction police officer regarding orders for both. No orders found on pt's chart after 1 hour and called doctor's office again for clarification. medical office receptionist stated that pt is WBAT. asked if pt needs to observe posterior hip precautions and stated yes. Asked the medical office receptionist to let Dr. Lozoya know that we needs those info put in as an order for pt's plan of care. Dr. Lozoya spoke with PT and told PT that we should know what are the posterior hip precautions and there has been discussions about this. informed Dr. Lozoya that PTs know what are the posterior hip precautions but needs this to be put in as an order that pt needs to observe posterior hip precautions and also as an doctor 's order for pt's weight bearing status. Number of STUDENT SERVICES COUNSELOR Visits 0 Physical Therapy Visit Comments Patient Comments agreeable to do PT Therapy Pain Assessment Pain When Pain Assessed During Mobility Pain Present Pain Present Pain Reported Location Right Hip Intensity 7 Scale Used Numeric (0 - 10) Description Sharp Pain Behaviors Guarding,Holding Area,Wincing Pain Management Distraction,Modification of Treatment,Re-positioning, Techniques Timing of Activity with Medications M4 PT-IP Mobility and Gait Start: 01/01/25 12:55 Freq: NEEDED Status: Active Protocol: Document 01/01/25 11:10 AB (Rec: 01/01/25 13:16 AB [id number]) PT-Bed Mobility Assessment Supine to Sit Supine to Sit Maximum Assistance,2 Person Assistance,Head of Bed Elevated,Bedrails PT-Transfer Assessment Sit to and From Stand Sit to and from Maximum Assistance,2 Person Assistance,Use of Upper Stand Extremities Equipment Transfer Assistive Gait Belt,Front Wheeled Walker Device Orthotic/Prosthetic No Devices or Brace: Transfers Transfer Destination Chair Transfer Technique Stand Step Pivot Transfer Ability Level of Assist Maximum Assistance,1 Person Assistance,2 Person Assistance,Use of Upper Extremities Comments Mobility Comments pt in bed and agreeable to do PT. obtained PLOF and home set up. reviewed R hip posterior precautions with pt and pt able to recall 2/3. also informed pt regarding WBAT on RLE. BP in supine: 101/56. pt completed supine to sit max A x 1-2 and max cues. HOB elevated and pt used bed rail to assist. pt able to sit on EOB min A with initial sitting and has increase posterior trunk lean. cued to correct. BP in sittin/48. c/o initial lightheadedness. pt sat on EOB for ~ 2 more minutes. BP rechecked: 101/57. max A for scooting to EOB. sit <>stand x 3 attempts max A x 2 and max cues. unable to stand due to c/o increase R hip pain. elevated bed up to assist and pt able to stand max A x 2 and max cues on an elevated bed . max A x 2 for step transfer to chair using FWW max a x 2 and max cues. positioned pt in bed. call light and table placed within reach. BP: 108/57 informed [facility] that pt is a mechanical lift transfers with nursing staff. Gait Assessment Comments Gait Comments only able to take steps for transfers using FWW max A x 2 and max cues PT-Balance Assessment Sitting Balance and Reactions Static Sitting Good Balance Ability Dynamic Sitting Fair Balance Ability Standing Balance and Reactions Static Standing Poor Balance Ability Dynamic Standing Poor Balance Ability Device Used FWW M5 PT-IP Objective Assessments Start: 01/01/25 12:55 Freq: NEEDED Status: Active Protocol: Document 01/01/25 11:10 AB (Rec: 01/01/25 13:16 AB [id number]) Orientation Orientation/Cognition Level of Alertness Alert Orientation Name,Place,Situation Language Function No Deficits Noted Ability Safety Awareness Decreased Safety Awareness Memory Description Short Term Impaired Gross Range of Motion Lower Extremity ROM Assessment Within Functional Limits Strength Lower Extremity Strength Assessment Right Impaired Hip 3-/5 Knee 4-/5 Muscle Tone Muscle Tone WNL Yes M6 PT-IP Treatment Start: 01/01/25 12:55 Freq: NEEDED Status: Active Protocol: Document 01/01/25 11:10 AB (Rec: 01/01/25 13:16 AB [id number]) Physical Therapy Treatment Education Education Provided Precautions,Weight Bearing Status,Safety M7 PT-IP Assessment and Plan Start: 01/01/25 12:55 Freq: NEEDED Status: Active Protocol: Document 01/01/25 11:10 AB (Rec: 01/01/25 13:16 AB [id number]) PT Summary Assessment and Plan Potential Rehabilitation Fair Potential Status of Condition Evolving at Evaluation Summary Impairments Pain,ROM,Strength,Balance,Coordination,Sensation,Tone, Cognition,Bed Mobility,Transfers,Gait,Activity Tolerance Assessment Summary pt is an 84 y/o M who had a GLF and sustain a R hip periprosthetic fx. pt has R hip posterior precautions and is WBAT. pt requiring max Ax 2 for transfers and only able to take a few steps to transfer using fWW max Ax 2 and max cues. pt will need SNF rehab at this time. will continue to assess progress. Goals Bed Mobility Goal Minimal Assistance Transfer Goal Minimal Assistance,Front Wheeled Walker Gait Goal Minimal Assistance,Front Wheel Walker Gait Distance 50 Other Goals improve bed mobility, transfers, ambulation using fWW ~ 100 ft SBA up/down 2 steps L rail ascending SBA Days to Meet Goals 10 Frequency of Treatment Frequency Of Once a Day Treatment Treatment Plan Physical Therapy Bed Mobility Training,Transfer Training,Gait Training, Treatment Plan Therapeutic Exercise,Balance Retraining,Discharge Planning,Hot or Cold Pack,Neuromuscular Re-ed, Coordination Retraining,Manual Therapy Precautions Posterior Hip No Hip Flexion > 90 degrees,No Hip Internal Rotation,No Precautions Hip Adduction Weight Bearing Status Weight Bearing Weight Bear as Tolerated Status Allowed Weight RLE WBAT Bearing Amount ( enter % or #) (%) Recommendations To Nursing Amount of Assist Mechanical Lift Needed Discharge Recommendations PT Discharge SNF Rehab Recommendations Transportation Needs Wheelchair/Cabulance,Stretcher/Ambulance at Discharge - PT assist 2
--- NOTE | 2025-01-01 13:55 | CM.DANOTE ---
Patient is an 84 yo male who was admitted INPT Status on 12/31/24 for GLF/hip fx. Pt has M[place] and [place] for insurance and his PCP is Dr. eMdina. EMR was reviewed. Per MD, pt with hx of RTHA in September 2024 and was home and got tripped up and fell on right side and new hip fx. Per Ortho Consult, no signs of loosened hardware and no need for surgical intervention at this time but pain control and work with PT/OT. Per PT, pt able to get to bedside chair but nursing staff needed pat back into bed. Recommending SNF at d/c. SW met bedside with pt and explained role and he confirms he still lives at home in [place] with his spouse and has FWW at home for longer distances and still drives. Pt states he went to [facility] in September 2024 this summer after planned hip surgery and was able to safely d/c home and had been doing well with ADLs until he got tripped up and fell yesterday. Pt confirms that he feels SNF needed at d/c and provided the SNF Choice list and pt preference is [facility] again due to location and easiest for spouse to come visit. Made referral to [facility] and they will review. MCR eligible for discharge to SNF Saturday or after. PASRR done. Plan: SW to follow for ongoing PT/OT and [facility] review to confirm they can accept when stable for discharge. NASIM Gutierrez Discharge Planning/Care Management CM Discharge Assessment Start: 12/31/24 09:08 Freq: Status: Active Protocol: Document 01/01/25 13:38 BF (Rec: 01/01/25 13:48 BF [id number]) Discharge Planning Assessment Assigned Discharge NASIM Pulido Human Resources Hr Representative Provider Dr. Matt Medina Insurance Medicare DPOA/Assigned spouse Vicky Designee Name Contact Information [phone] Advance Directives? Yes Advance Directives Yes on File History Provided By Patient,Significant Other,Medical Record Has Patient been No admitted in last 30 days? Comment Last admit in September 2024 for planned hip surgery and went to [facility] Prior Living House Arrangements Household Members spouse Type of Drives own vehicle transporation used prior to admit Independent with ADL Yes 's Is patient alert and Yes oriented? Caregiver for No Another DME Already Rented / FWW / Walker Owned Patient/Family Care Home Facility,OP PT Therapy Preference Barriers to No Discharge Discharge Plan Care Home Facility Community Services Physical Therapy,Occupational Therapy Transportation Facility Arrangement Referrals Initiated Care Home Medicare Choice List Yes Provided Medicare choice list patient reviewed on electronic tablet with SNF/HH Preference [facility] Has Agency SNF been Yes contacted Whiteboard Updated Yes in Patient Room with name and ext. # of Electrical Line Worker Review Status In Process Please Provide Date 01/01/25 Initial DC Assessment Was Performed Next Review Type Continued Stay Review
--- NOTE | 2025-01-01 15:30 | OT.IP.EVAL ---
Current Diagnoses Type 2 diabetes mellitus without complications (12/31/24) Mixed hyperlipidemia (12/31/24) Essential (primary) hypertension (12/31/24) Atherosclerotic heart disease of [place] coronary artery without angina pectoris (12/31/24) Cardiomyopathy, unspecified (12/31/24) Chronic systolic (congestive) heart failure (12/31/24) Periprosthetic fracture around internal prosthetic right hip joint, initial encounter (12/31/24) Other obstructive and reflux uropathy (12/31/24) Chronic kidney disease, stage 3a (12/31/24) Overactive bladder (12/31/24) Benign prostatic hyperplasia with lower urinary tract symptoms (12/31/24) Unspecified trochanteric fracture of right femur, initial encounter for closed fracture (12/31/24) Past Medical History (Last Reviewed 11/05/24 @ 22:26 by Guerline Holden DO) Benign prostatic hyperplasia with urinary obstruction (03/25/15) Cardiomyopathy Chronic back pain (1989) Chronic HFrEF (heart failure with reduced ejection fraction) Chronic renal failure, stage 3a Coronary artery disease involving [place] coronary artery of [place] heart without angina pectoris (1995) Depression Diabetes Essential hypertension Femur fracture (1965) Fracture (1951) Gilbert's syndrome Hayfever (1999) Hepatitis A (1963) History of nephrolithiasis HLD (hyperlipidemia) ICD (implantable cardioverter-defibrillator) in place (05/08/24) Incomplete bladder emptying Melanoma (1987) Mild claudication Mitral valve insufficiency Mixed hyperlipidemia Nonsustained paroxysmal ventricular tachycardia Overactive bladder Peripheral vascular disease (2009) Polymyalgia rheumatica (08/30/15) Poor short term memory Post laminectomy syndrome Primary osteoarthritis of both hips (08/30/15) Recurrent falls Shoulder pain (2011) Spinal stenosis Tinnitus Type 2 diabetes mellitus without complication (06/05/15) Urinary incontinence Surgical History (Last Reviewed 11/05/24 @ 22:26 by Guerline Holden DO) History of bilateral cataract extraction History of coronary artery stent placement (07/29/18) History of lumbar spinal fusion (~02/2024) History of orthopedic surgery (1965) Hx of laminectomy (~12/2023) S/P total hip arthroplasty (09/22/24) Status post appendectomy (1956) Status post coronary artery bypass graft (1995) Occupational Therapy Inpatient Evaluation/Re-Eval M1 PT/OT-IP Prior Functional Status Start: 01/01/25 12:55 Freq: NEEDED Status: Active Protocol: Document 01/01/25 14:00 [facility] (Rec: 01/01/25 15:00 [facility] Desktop) Medical Review Prior Functional Status Medical History Yes Reviewed Communication able to make needs known Mobility and Gait pt stated that he was modified independent with all mobilities and ambulation using a 4WW long distance indoors, SPC short distances indoors/outdoors and FWW for long distance outdoor mobility Activities of Daily Pt states was able to do ADL needs and his would Living and IADL's assist with set-up of medications. Social History Household Members spouse Living Arrangements House Number of Floors ( One Floor Floors) Number of Stairs To 2 steps L rail ascending Enter/Railing? Home Environment Standard Height Toilet,Walk in Shower Home Equipment Front Wheel Walker,Four Wheel Walker,Straight Cane, Raised Toilet Seat w/Armrests,Shower Seat with Backrest ,Hand Held Shower,Long Handled Shoe Horn,Services Clerk,Sock Aid,Grab Bars In Shower M2 OT-IP Current Condition Start: 01/01/25 14:50 Freq: Status: Active Protocol: Document 01/01/25 14:00 [facility] (Rec: 01/01/25 15:00 [facility] Desktop) Occupational Therapy Current Condition Current Condition Evaluation Date 01/01/25 Treatment Diagnosis Right periprosthetic fx Diagnosis Onset Date 12/31/24 Post Operative Precautions Posterior Hip No Hip Flexion > 90 degrees,No Hip Internal Rotation,No Precautions Hip Adduction Weight Bearing Status Weight Bearing Weight Bear as Tolerated Status M3 OT- IP Subjective and Pain Start: 01/01/25 14:50 Freq: Status: Active Protocol: Document 01/01/25 14:00 [facility] (Rec: 01/01/25 15:00 [facility] Desktop) OT- Subjective Occupational Therapy Visit Type Type Initial Evaluation Visit Start Time 13:45 Visit Stop Time 14:07 Occupational Therapy Visit Comments Patient Comments Pt agreed to talk to OT as just got back to bed with pat lift. Patient/Caregiver TO get better. Goals OT Pain Assessment Pain When Pain Assessed At Rest Pain Present Pain Present Denied Pain M4 OT- IP ADL's Start: 01/01/25 14:50 Freq: Status: Active Protocol: Document 01/01/25 14:00 [facility] (Rec: 01/01/25 15:00 [facility] Desktop) OT [id number] Comments OT Self-Feeding NO issues anticipated. Comments OT ADL-Grooming Comments OT Grooming Comments No performed. OT ADL-Oral Care Comments Oral Care Comments Not performed. OT ADL-Dressing General Eval Lower Body Dressing Maximum Assistance Ability OT ADL-Toileting General Evaluation Toileting Ability Total Assistance OT ADL-Bathing Comments OT Bathing Comments Sponge bath more appropriate at this time. M5 OT- IP IADL's Start: 01/01/25 14:50 Freq: Status: Active Protocol: Document 01/01/25 14:00 [facility] (Rec: 01/01/25 15:00 [facility] Desktop) OT-Instrumental Activities of Daily Living Home Safety Awareness Awareness of Need Good Awareness for Assistance at Home Ability to Problem Able to Problem Solve Solve Emergency Situations Medication Management Medication Caregiver Provides Supervision Management Money Management Money Management Pt states most of his bills are on automatic payment. Comments Meal Preparation Meal Preparation Caregiver Provides Assist Card Grinder Helper Card Grinder Helper Caregiver Provides Assist M6 OT- IP Functional Cognition Start: 01/01/25 14:50 Freq: Status: Active Protocol: Document 01/01/25 14:00 [facility] (Rec: 01/01/25 15:00 [facility] Desktop) Cognitive Factors Limiting Selfcare Function Cognitive Ability Level of Alertness Alert Patient Orientation Name,Age,Birthday,Month,Date,Year,Day of Week,Place, Situation Attention Span Capable of Focused Attention,Capable of Sustained Ability Attention Ability to Follow Able to Follow One Step Commands Commands Memory Description Short Term Impaired Cognitive Tests SLUMS 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 Pt able to recall 0/5 objects and not able to draw the hour hands correctly on the clock after time given. Cognitive Comments Cognitive Assessment Pt has poor STM and able to recall 1/3 to 2/3 hip Comments precautions even after repetitive education. OT- Vision and Hearing OT- Hearing Assessment OT- Hearing WFL Assessment OT- Vision Assessment Visual Acuity Glasses For Reading Visual Attentiveness WFL Occular Pursuits WFL M7 OT- IP Mobility and Balance Start: 01/01/25 14:50 Freq: Status: Active Protocol: Document 01/01/25 14:00 [facility] (Rec: 01/01/25 15:00 [facility] Desktop) OT-Transfer Assessment Comments Mobility Comments Please see PT neo for mobility. M8 OT- IP Objective Assessments Start: 01/01/25 14:50 Freq: Status: Active Protocol: Document 01/01/25 14:00 [facility] (Rec: 01/01/25 15:00 [facility] Desktop) OT Gross Range of Motion Upper Extremity Range of Motion Assessment Within Functional Limits OT Strength Upper Extremity Strength Assessment Right Impaired Comments Strength Comments LUE 5/5, RUE 4/5 to 4+/5 OT- Coordination Assessment Upper Extremity Finger to Nose Test Within Functional Limits M9 OT- IP Assessment and Plan Start: 01/01/25 14:50 Freq: Status: Active Protocol: Document 01/01/25 14:00 [facility] (Rec: 01/01/25 15:00 [facility] Desktop) OT Summary Assessment and Plan Potential Rehabilitation Good Potential Analytic Complexity Low at Evaluation Summary OT Impairments Pain,Strength,Balance,Functional Cognition,Functional Mobility,Dressing,Toileting,Bathing,Toilet Transfers, Shower Transfers,Activity Tolerance Progress Towards Slow Progress due to Pain,Slow Progress due to Medical Goals Issues,Slow Progress due to Activity Tolerance,Slow Progress due to Cognition Assessment Summary Pt low complexity and main barriers are pain, and now needing use of pat lift for transfers. Pt has decreased STM and has difficulty to recall his hip precautions. Pt to go to skilled rehab when medically stable. Goals Dressing Goal Independent,Long Handled Shoe Horn,Services Clerk,Sock Aid Toileting Goal Standby Assistance Bathing Goal Minimal Assistance Toilet Transfer Goal Contact Guard Assistance Shower Transfer Goal Minimal Assistance Days to Meet Goals 30 Frequency of Treatment Other frequency 5x/week Treatment Plan OT Treatment Plan ADL Training,Functional Cognition Training,Functional Mobility Other Treatment Pt to transfer to [facility] with MAXAX 2 with FWW. Recommendations and Next Treatment Focus Discharge Recommendations OT Discharge SNF Rehab Recommendations Transportation Needs Wheelchair/Cabulance at Discharge
--- NOTE | 2025-01-01 17:22 | PM.PNPO.1 ---
Exam Vital Signs (past 8 hours): - 01/01/25 12:00 01/01/25 12:00 01/01/25 16:00 Temperature 97.5 F L 97.5 F L Pulse Rate 67 60 Respiratory Rate 18 19 18 Blood Pressure 101/57 L 104/56 L Pulse Oximetry 94 97 Oxygen Flow Rate 0 0 Oxygen Delivery Method Room Air Oxygen Flow Rate 0 Objective Labs 12/31/24 01:06 12/31/24 01:06 Labs: Laboratory Results - last 24 hr 12/31/24 01/01/25 01/01/25 20:05 08:00 12:15 POC Whole Bld Glucose 118 H 111 H 153 H 01/01/25 16:54 POC Whole Bld Glucose 140 H PFSH Medical History Poor short term memory ICD (implantable cardioverter-defibrillator) in place (05/08/24) History of nephrolithiasis Chronic renal failure, stage 3a Overactive bladder Urinary incontinence Post laminectomy syndrome Mitral valve insufficiency Cardiomyopathy Chronic HFrEF (heart failure with reduced ejection fraction) Nonsustained paroxysmal ventricular tachycardia Mild claudication Recurrent falls Spinal stenosis Tinnitus Diabetes HLD (hyperlipidemia) Depression Incomplete bladder emptying Hayfever (1999) Shoulder pain (2011) Fracture (1951) Chronic back pain (1989) Hepatitis A (1963) Melanoma (1987) Gilbert's syndrome Femur fracture (1965) Primary osteoarthritis of both hips (08/30/15) Polymyalgia rheumatica (08/30/15) Type 2 diabetes mellitus without complication (06/05/15) Benign prostatic hyperplasia with urinary obstruction (03/25/15) Peripheral vascular disease (2009) Coronary artery disease involving [place] coronary artery of [place] heart without angina pectoris (1995) Essential hypertension Mixed hyperlipidemia Surgical History S/P total hip arthroplasty (09/22/24) History of lumbar spinal fusion (~02/2024) Hx of laminectomy (~12/2023) History of bilateral cataract extraction History of coronary artery stent placement (07/29/18) History of orthopedic surgery (1965) Status post appendectomy (1956) Status post coronary artery bypass graft (1995) Family History Father Colon cancer Prostate enlargement Bladder cancer History of hip surgery Pneumonia History of prostate surgery Mother Diabetes mellitus Heart disease Hypertension High cholesterol Osteoporosis History of cataract surgery H/O heart bypass surgery Arthritis Grandfather Arthritis Prostate cancer Colon cancer Deaf Legally blind Grandmother Diabetes mellitus Hypertension Angina pectoris Heart disease Osteoporosis Social History marital status: number of children: 0 household members: spouse lives independently: Yes caregiver/support person: No housing: house pets and animals: Yes education level: other occupational status: other 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 Osei on September 22, 2024. S: Reports that his right hip pain has improved. However he still has significant pain with weight-bearing and hip range of motion. Tolerating p.o.. Denies any fevers, chills or night sweats. O: Well-healed surgical incision. No erythema or drainage. Fires quads, HS, TA, EHL SILT in S/S/DP/SP/T A: 84yo M with history, physical exam and imaging findings consistent with a right hip periprosthetic fracture. The right hip arthroplasty appears to be still well seated and no signs of loosening. We recommend continued nonoperative treatments with weight-bearing as tolerated and range motion as tolerated. -admission to medicine (appreciate their assistance with this patient( -physical therapy consult -weightbearing as tolerated and range motion as tolerated -patient will likely require SNF placement -follow up with Orthopedics in 2 weeks (he will follow up with Dr. Verma) The patient had the treatment plan explained, questions answered and seemed satisfied with the plan. There were no apparent barriers to communication. The documentation in this note may have been entered with the assistance of computer voice recognition and dictation software. Therefore, it may contain unintended errors in text, spelling, punctuation, or grammar. Jackson Lozoya MD Orthopedic Surgeon Time Spent With Patient Time with patient: Greater than 35 minutes
--- NOTE | 2025-01-01 17:47 | PC.NURSE ---
Pt condition remains essentially unchanged. Med for discomfort w/ good relief. CBG 111/153/ 140 pt declined S/S call light w/in reach, pt calls appropriately for needs. Continue w/plan of care.
[2025-01-01] MEDS: ATORVASTATIN 20 MG TABLET 40 MG PO (19:44)
[2025-01-02] VITALS: BP 116/58; PULSE 71; RESP 16; TEMP 36.2; O2SAT 93
[2025-01-02] MEDS: ACETAMINOPHEN 325 MG TABLET 650 MG PO ×2 (00:40→21:49)
[2025-01-02] MEDS: MELATONIN 3 MG TABLET 9 MG PO ×2 (00:41→21:49)
[2025-01-02 04:00] VITALS: BP 114/63; PULSE 67; RESP 16; TEMP 36.1; O2SAT 96
[2025-01-02] MEDS: ENOXAPARIN 40 MG/0.4 ML SYRINGE SUBCUT (08:46)
[2025-01-02] MEDS: TAMSULOSIN 0.4 MG CAPSULE PO ×2 (08:47→20:37)
[2025-01-02] MEDS: MAGNESIUM OXIDE 400 MG TABLET PO ×2 (08:47→20:36)
[2025-01-02] MEDS: PANTOPRAZOLE DR 40 MG TABLET PO ×2 (08:47→20:36)
[2025-01-02] MEDS: FOLIC ACID 1 MG TABLET PO (08:47)
[2025-01-02] MEDS: SERTRALINE 50 MG TABLET 150 MG PO (08:47)
[2025-01-02] MEDS: SPIRONOLACTONE 25 MG TABLET PO (08:47)
[2025-01-02] MEDS: GABAPENTIN 300 MG CAPSULE PO ×2 (08:47→20:36)
[2025-01-02] MEDS: DOCUSATE 100 MG CAPSULE PO ×2 (08:47→20:36)
[2025-01-02] MEDS: ISOSORBIDE MONONITRATE ER 30 MG TABLET PO (08:48)
[2025-01-02] MEDS: oxyBUTYnin ER 5 MG TABLET 10 MG PO (08:52)
--- NOTE | 2025-01-02 09:03 | PM.PN.IH.1 ---
Subjective Subjective Date Patient Seen: 01/02/25 Time Patient Seen: 09:03 Interval history: Patient up with physical therapy yesterday. Barely able to transfer and take minimal steps with 2 person assist Vital signs have been stable Blood sugars have been adequately controlled Exam Vital Signs (past 8 hours): - 01/02/25 04:00 Temperature 96.9 F L Pulse Rate 67 Respiratory Rate 16 Blood Pressure 114/63 Pulse Oximetry 96 Oxygen Flow Rate 0 Oxygen Delivery Method Room Air Oxygen Flow Rate 0 Objective Labs 12/31/24 01:06 12/31/24 01:06 Labs: Laboratory Results - last 24 hr 01/01/25 01/01/25 01/01/25 12:15 16:54 19:33 POC Whole Bld Glucose 153 H 140 H 133 H 01/02/25 07:20 POC Whole Bld Glucose 112 H PFSH Medical History Poor short term memory ICD (implantable cardioverter-defibrillator) in place (05/08/24) History of nephrolithiasis Chronic renal failure, stage 3a Overactive bladder Urinary incontinence Post laminectomy syndrome Mitral valve insufficiency Cardiomyopathy Chronic HFrEF (heart failure with reduced ejection fraction) Nonsustained paroxysmal ventricular tachycardia Mild claudication Recurrent falls Spinal stenosis Tinnitus Diabetes HLD (hyperlipidemia) Depression Incomplete bladder emptying Hayfever (1999) Shoulder pain (2011) Fracture (1951) Chronic back pain (1989) Hepatitis A (1963) Melanoma (1987) Gilbert's syndrome Femur fracture (1965) Primary osteoarthritis of both hips (08/30/15) Polymyalgia rheumatica (08/30/15) Type 2 diabetes mellitus without complication (06/05/15) Benign prostatic hyperplasia with urinary obstruction (03/25/15) Peripheral vascular disease (2009) Coronary artery disease involving [place] coronary artery of [place] heart without angina pectoris (1995) Essential hypertension Mixed hyperlipidemia Surgical History S/P total hip arthroplasty (09/22/24) History of lumbar spinal fusion (~02/2024) Hx of laminectomy (~12/2023) History of bilateral cataract extraction History of coronary artery stent placement (07/29/18) History of orthopedic surgery (1965) Status post appendectomy (1956) Status post coronary artery bypass graft (1995) Family History Father Colon cancer Prostate enlargement Bladder cancer History of hip surgery Pneumonia History of prostate surgery Mother Diabetes mellitus Heart disease Hypertension High cholesterol Osteoporosis History of cataract surgery H/O heart bypass surgery Arthritis Grandfather Arthritis Prostate cancer Colon cancer Deaf Legally blind Grandmother Diabetes mellitus Hypertension Angina pectoris Heart disease Osteoporosis Social History marital status: number of children: 0 household members: spouse lives independently: Yes caregiver/support person: No housing: house pets and animals: Yes education level: other occupational status: other 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 Right periprosthetic femur fracture-continue conservative management as per Orthopedic surgery. Continue physical therapy and more likely than not will need skilled therapy placement depending on clinical course 2. Diabetes type 2-continue current medications blood sugar control seems adequate 3. Chronic heart failure with reduced ejection fraction-patient appears to be euvolemic currently. Continue current medications 4. Hypertension-modestly low as is his standard as an outpatient. Likely due to his multiple cardiac medications. Numbers somewhat improved over yesterday. 5. Coronary artery disease-no evidence of active coronary disease. Continue secondary preventive medications as above 6. Disposition-seems likely patient will require assisted placement when ready for discharge, but needs at least another 24-48 hours in the hospital to make final determination Time-Based Coding :: [TOTAL MINUTES] spent with patient and on the chart (including review of chart, obtaining history, exam, reviewing outside data, placing orders, documenting exam and treatment plan, and counseling patient) on [DATE]. [facility] Document charge(s): Yes Charge Codes Subsequent inpatient/observation care: [id number]
--- NOTE | 2025-01-02 09:28 | PM.PNPO.1 ---
Exam Vital Signs (past 8 hours): - 01/02/25 04:00 Temperature 96.9 F L Pulse Rate 67 Respiratory Rate 16 Blood Pressure 114/63 Pulse Oximetry 96 Oxygen Flow Rate 0 Oxygen Delivery Method Room Air Oxygen Flow Rate 0 Objective Labs 12/31/24 01:06 12/31/24 01:06 Labs: Laboratory Results - last 24 hr 01/01/25 01/01/25 01/01/25 12:15 16:54 19:33 POC Whole Bld Glucose 153 H 140 H 133 H 01/02/25 07:20 POC Whole Bld Glucose 112 H PFS Medical History Poor short term memory ICD (implantable cardioverter-defibrillator) in place (05/08/24) History of nephrolithiasis Chronic renal failure, stage 3a Overactive bladder Urinary incontinence Post laminectomy syndrome Mitral valve insufficiency Cardiomyopathy Chronic HFrEF (heart failure with reduced ejection fraction) Nonsustained paroxysmal ventricular tachycardia Mild claudication Recurrent falls Spinal stenosis Tinnitus Diabetes HLD (hyperlipidemia) Depression Incomplete bladder emptying Hayfever (1999) Shoulder pain (2011) Fracture (1951) Chronic back pain (1989) Hepatitis A (1963) Melanoma (1987) Gilbert's syndrome Femur fracture (1965) Primary osteoarthritis of both hips (08/30/15) Polymyalgia rheumatica (08/30/15) Type 2 diabetes mellitus without complication (06/05/15) Benign prostatic hyperplasia with urinary obstruction (03/25/15) Peripheral vascular disease (2009) Coronary artery disease involving [place] coronary artery of [place] heart without angina pectoris (1995) Essential hypertension Mixed hyperlipidemia Surgical History S/P total hip arthroplasty (09/22/24) History of lumbar spinal fusion (~02/2024) Hx of laminectomy (~12/2023) History of bilateral cataract extraction History of coronary artery stent placement (07/29/18) History of orthopedic surgery (1965) Status post appendectomy (1956) Status post coronary artery bypass graft (1995) Family History Father Colon cancer Prostate enlargement Bladder cancer History of hip surgery Pneumonia History of prostate surgery Mother Diabetes mellitus Heart disease Hypertension High cholesterol Osteoporosis History of cataract surgery H/O heart bypass surgery Arthritis Grandfather Arthritis Prostate cancer Colon cancer Deaf Legally blind Grandmother Diabetes mellitus Hypertension Angina pectoris Heart disease Osteoporosis Social History marital status: number of children: 0 household members: spouse lives independently: Yes caregiver/support person: No housing: house pets and animals: Yes education level: other occupational status: other 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 Osei on September 22, 2024. S: Reports that his right hip pain is the same as yesterday. He still has significant pain with weight-bearing and hip range of motion. He was able to stand and pivot with PT yesterday. Tolerating p.o.. Denies any fevers, chills or night sweats. O: Well-healed surgical incision. No erythema or drainage. Fires quads, HS, TA, EHL SILT in S/S/DP/SP/T A: 84yo M with history, physical exam and imaging findings consistent with a right hip periprosthetic fracture. The right hip arthroplasty appears to be still well seated and no signs of loosening. We recommend continued nonoperative treatments with weight-bearing as tolerated and range motion as tolerated. -admission to medicine (appreciate their assistance with this patient( -physical therapy -weightbearing as tolerated and range motion as tolerated -patient will likely require SNF placement -follow up with Orthopedics in 2 weeks (he will follow up with Dr. Verma) The patient had the treatment plan explained, questions answered and seemed satisfied with the plan. There were no apparent barriers to communication. The documentation in this note may have been entered with the assistance of computer voice recognition and dictation software. Therefore, it may contain unintended errors in text, spelling, punctuation, or grammar. Jackson Lozoya MD Orthopedic Surgeon Time Spent With Patient Time with patient: 15-24 minutes
[2025-01-02 11:29] VITALS: BP 107/54; PULSE 61; RESP 16; TEMP 36.6; O2SAT 95
--- NOTE | 2025-01-02 12:05 | PT.IPTN ---
Current Diagnoses Type 2 diabetes mellitus without complications (12/31/24) Mixed hyperlipidemia (12/31/24) Essential (primary) hypertension (12/31/24) Atherosclerotic heart disease of [place] coronary artery without angina pectoris (12/31/24) Cardiomyopathy, unspecified (12/31/24) Chronic systolic (congestive) heart failure (12/31/24) Periprosthetic fracture around internal prosthetic right hip joint, initial encounter (12/31/24) Other obstructive and reflux uropathy (12/31/24) Chronic kidney disease, stage 3a (12/31/24) Overactive bladder (12/31/24) Benign prostatic hyperplasia with lower urinary tract symptoms (12/31/24) Unspecified trochanteric fracture of right femur, initial encounter for closed fracture (12/31/24) Physical Therapy Treatment Note M2 PT-IP Current Condition Start: 01/01/25 12:55 Freq: NEEDED Status: Active Protocol: Document 01/01/25 11:10 AB (Rec: 01/01/25 13:16 AB [id number]) Physical Therapy Current Condition Current Condition Evaluation Date 01/01/25 Treatment Diagnosis R hip periprosthetic fx; difficulty in walking Onset Date 12/31/24 M3 PT-IP Subjective Start: 01/01/25 12:55 Freq: NEEDED Status: Active Protocol: Document 01/02/25 12:05 AB (Rec: 01/02/25 13:33 AB Desktop) Subjective Physical Therapy Visit Type Type Treatment Note Visit Start Time 12:05 Visit Stop Time 12:25 Number of WARD SECRETARY Visits 0 Physical Therapy Visit Comments Patient Comments agreeable to do PT Therapy Pain Assessment Pain When Pain Assessed During Mobility Pain Present Pain Present Pain Reported Location Right Hip Intensity 7 Scale Used Numeric (0 - 10) Pain Management Distraction,Modification of Treatment,Re-positioning Techniques M4 PT-IP Mobility and Gait Start: 01/01/25 12:55 Freq: NEEDED Status: Active Protocol: Document 01/02/25 12:05 AB (Rec: 01/02/25 13:33 AB Desktop) PT-Bed Mobility Assessment Supine to Sit Supine to Sit Moderate Assistance PT-Transfer Assessment Sit to and From Stand Sit to and from Maximum Assistance,1 Person Assistance,Use of Upper Stand Extremities Equipment Transfer Assistive Gait Belt,Front Wheeled Walker Device Orthotic/Prosthetic No Devices or Brace: Transfers Transfer Destination Chair Transfer Technique Stand Step Pivot Transfer Ability Level of Assist Moderate Assistance,Maximum Assistance,1 Person Assistance,Use of Upper Extremities Comments Mobility Comments pt in bed and agreeable to do PT. reviewed posterior hip precautions and pt recalled 2/3. completed supine to sit mod A and cues. HOB elevated. able to sit on EOb SBA. sit to stand from EOB: unable to fully get to upright position on first attempt. elevated height of bed and completed again and able to stand max A and max cues. initial posterior LOB required max A for steadiness and cues to use FWW for support. pt was able to step transfer to chair using fWW mod to max A and max cues. pt needed one step commands with all tasks. completed sit to stand from the chair max A and cues and ambulated in room ~ 12 ft using FWW mod to max A and cues; more of max A towards end to ambulation with increase unsteadiness and R knee flexion. pt sat back on chair. positioned on the chair. setup for lunch. call light and table placed next to pt. Gait Assessment Gait Gait Assistance Moderate Assistance,Maximum Assistance Required: Distance (Feet) 12 Able to Maintain Yes Weight Bearing Status During Gait Assistive Devices Assistive Device Gait Belt,Front Wheeled Walker Orthotic/Prosthetic No Devices or Brace: Gait Deviations General Gait Pattern Antalgic,Decreased Stride Length,Decreased Feet Clearance,Step-to Gait Factors Limiting Gait Function Factors Limiting Decreased Activity Tolerance,Decreased Sensation, Gait Function Decreased Strength,Difficulty Following Directions, Incoordination,Limited Range of Motion,Pain,Poor Balance,Poor Safety Awareness M5 PT-IP Objective Assessments Start: 01/01/25 12:55 Freq: NEEDED Status: Active Protocol: Document 01/01/25 11:10 AB (Rec: 01/01/25 13:16 AB [id number]) Orientation Orientation/Cognition Level of Alertness Alert Orientation Name,Place,Situation Language Function No Deficits Noted Ability Safety Awareness Decreased Safety Awareness Memory Description Short Term Impaired Gross Range of Motion Lower Extremity ROM Assessment Within Functional Limits Strength Lower Extremity Strength Assessment Right Impaired Hip 3-/5 Knee 4-/5 Muscle Tone Muscle Tone WNL Yes M6 PT-IP Treatment Start: 01/01/25 12:55 Freq: NEEDED Status: Active Protocol: Document 01/02/25 12:05 AB (Rec: 01/02/25 13:33 AB Desktop) Physical Therapy Treatment Education Education Provided Precautions,Weight Bearing Status,Safety M7 PT-IP Assessment and Plan Start: 01/01/25 12:55 Freq: NEEDED Status: Active Protocol: Document 01/02/25 12:05 AB (Rec: 01/02/25 13:33 AB Desktop) PT Summary Assessment and Plan Potential Rehabilitation Fair Potential Summary Impairments Pain,ROM,Strength,Balance,Coordination,Cognition,Bed Mobility,Transfers,Gait,Activity Tolerance Progress Towards Slow Progress - Other Goals Assessment Summary pt progressing with mobilities and able to ambulate today using FWW mod to max A and max cues. pt continues to require max cues with all tasks and for hip precautions due to decrease safety awareness. pt will benefit from SNF rehab to improve overall strength and mobility independence. Goals Bed Mobility Goal Minimal Assistance Transfer Goal Minimal Assistance,Front Wheeled Walker Gait Goal Minimal Assistance,Front Wheel Walker Gait Distance 50 Other Goals improve bed mobility, transfers, ambulation using fWW ~ 100 ft SBA up/down 2 steps L rail ascending SBA Days to Meet Goals 10 Frequency of Treatment Frequency Of Once a Day Treatment Treatment Plan Physical Therapy Bed Mobility Training,Transfer Training,Gait Training, Treatment Plan Therapeutic Exercise,Balance Retraining,Discharge Planning,Hot or Cold Pack,Neuromuscular Re-ed, Coordination Retraining,Manual Therapy Precautions Posterior Hip No Hip Flexion > 90 degrees,No Hip Internal Rotation,No Precautions Hip Adduction Weight Bearing Status Weight Bearing Weight Bear as Tolerated Status Allowed Weight RLE WBAT Bearing Amount ( enter % or #) (%) Recommendations To Nursing Amount of Assist 2 Person Assist Needed Discharge Recommendations PT Discharge SNF Rehab Recommendations Transportation Needs Wheelchair/Cabulance at Discharge - PT assist 1
--- NOTE | 2025-01-02 14:59 | CM.DPNOTE ---
Addendum entered by NASIM Khan 01/02/25 16:14: per August, can accept Saturday. transport pending. per August, We will not be able to do the tirzepitide (Mounjaro) injections while at [facility]. These would need to be on hold and documented. pt to DC to [facility] Saturday vs later if not medically stable, will need to hold injection at . CM team will continue to follow for DCP Coordination SL Original Note: DCP note [facility] reviewed EMR per note, potentially stable to dc to [facility] tomorrow. per August at , did not have referral information. [facility] updated August hopeful for dc tomorrow. sent referral information. [facility] previously completed P: if able to accept/medically stable, dc to tomorrow. time pending. will continue to follow closely for DCP Coordination NASIM Khan
[2025-01-02 16:00] VITALS: BP 88/46; PULSE 56; RESP 19; TEMP 36.4; O2SAT 94
--- NOTE | 2025-01-02 16:23 | PC.NURSE ---
Pt showed some improvement today, was able to be a 1-2PA to BR, most difficult is to arise to feet. CBG are WNL, Med x 1 w/Mica for discomfort with good relief. Call light w/in reach, pt calls appropriately for needs. Continue w/plan of care.
[2025-01-02 20:00] VITALS: BP 90/43; PULSE 61; RESP 17; TEMP 36.2; O2SAT 96
[2025-01-02] MEDS: ATORVASTATIN 20 MG TABLET 40 MG PO (20:36)
[2025-01-03] VITALS (8 sets, daily range): BP systolic 108–122; BP diastolic 47–67; PULSE 64–75; RESP 14–20; TEMP 35.9–36.6; O2SAT 94–97
--- NOTE | 2025-01-03 08:17 | PM.PN.IH.1 ---
Subjective Subjective Date Patient Seen: 01/03/25 Time Patient Seen: 08:18 Interval history: Patient will basically uneventful day yesterday. Up with physical therapy able to do a bit more but still very limited in activity requiring maximum assist by end of physical therapy session. It appears he is going to require [facility] placement. Patient appears to understand this and is more accepting of the need for return to [facility] despite the fact he was definitely better yesterday than the day prior, he still has significant pain and disability which he understands Blood sugar control very much adequate No evidence of volume overload or active congestive heart failure. Vital signs stable with soft blood pressure which appears to be pretty much baseline Exam Vital Signs (past 8 hours): - 01/03/25 03:05 Temperature 97.3 F L Pulse Rate 75 Respiratory Rate 16 Blood Pressure 113/63 Pulse Oximetry 95 Oxygen Flow Rate 0 Oxygen Delivery Method Room Air Oxygen Flow Rate 0 Objective Labs 12/31/24 01:06 12/31/24 01:06 Labs: Laboratory Results - last 24 hr 01/02/25 01/02/25 01/03/25 11:21 16:25 08:03 POC Whole Bld Glucose 128 H 134 H 123 H PFSH Medical History Poor short term memory ICD (implantable cardioverter-defibrillator) in place (05/08/24) History of nephrolithiasis Chronic renal failure, stage 3a Overactive bladder Urinary incontinence Post laminectomy syndrome Mitral valve insufficiency Cardiomyopathy Chronic HFrEF (heart failure with reduced ejection fraction) Nonsustained paroxysmal ventricular tachycardia Mild claudication Recurrent falls Spinal stenosis Tinnitus Diabetes HLD (hyperlipidemia) Depression Incomplete bladder emptying Hayfever (1999) Shoulder pain (2011) Fracture (1951) Chronic back pain (1989) Hepatitis A (1963) Melanoma (1987) Gilbert's syndrome Femur fracture (1965) Primary osteoarthritis of both hips (08/30/15) Polymyalgia rheumatica (08/30/15) Type 2 diabetes mellitus without complication (06/05/15) Benign prostatic hyperplasia with urinary obstruction (03/25/15) Peripheral vascular disease (2009) Coronary artery disease involving [place] coronary artery of [place] heart without angina pectoris (1995) Essential hypertension Mixed hyperlipidemia Surgical History S/P total hip arthroplasty (09/22/24) History of lumbar spinal fusion (~02/2024) Hx of laminectomy (~12/2023) History of bilateral cataract extraction History of coronary artery stent placement (07/29/18) History of orthopedic surgery (1965) Status post appendectomy (1956) Status post coronary artery bypass graft (1995) Family History Father Colon cancer Prostate enlargement Bladder cancer History of hip surgery Pneumonia History of prostate surgery Mother Diabetes mellitus Heart disease Hypertension High cholesterol Osteoporosis History of cataract surgery H/O heart bypass surgery Arthritis Grandfather Arthritis Prostate cancer Colon cancer Deaf Legally blind Grandmother Diabetes mellitus Hypertension Angina pectoris Heart disease Osteoporosis Social History marital status: number of children: 0 household members: spouse lives independently: Yes caregiver/support person: No housing: house pets and animals: Yes education level: other occupational status: other 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 Right periprosthetic femur fracture-continue conservative management as per Orthopedic surgery. Continue physical therapy and more likely than not will need skilled therapy placement 2. Diabetes type 2-continue current medications blood sugar control seems adequate 3. Chronic heart failure with reduced ejection fraction-patient appears to be euvolemic currently. Continue current medications without change 4. Hypertension-modestly low as is his standard as an outpatient. Likely due to his multiple cardiac medications. No changes for today 5. Coronary artery disease-no evidence of active coronary disease. Continue secondary preventive medications as above 6. Disposition-seems likely patient will require [facility] placement when ready for discharge, but I think he would benefit from at least another 24 hours in the hospitali, as it does seem to have improved in the last 24 hours relatively significantly Time-Based Coding :: [TOTAL MINUTES] spent with patient and on the chart (including review of chart, obtaining history, exam, reviewing outside data, placing orders, documenting exam and treatment plan, and counseling patient) on [DATE]. 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
[2025-01-03] MEDS: ENOXAPARIN 40 MG/0.4 ML SYRINGE SUBCUT (08:43)
--- NOTE | 2025-01-03 08:43 | PM.PNPO.1 ---
Exam Vital Signs (past 8 hours): - 01/03/25 03:05 01/03/25 07:00 Temperature 97.3 F L 96.8 F L Pulse Rate 75 67 Respiratory Rate 16 18 Blood Pressure 113/63 122/67 Pulse Oximetry 95 96 Oxygen Flow Rate 0 Oxygen Delivery Method Room Air Oxygen Flow Rate 0 Objective Labs 12/31/24 01:06 12/31/24 01:06 Labs: Laboratory Results - last 24 hr 01/02/25 01/02/25 01/03/25 11:21 16:25 08:03 POC Whole Bld Glucose 128 H 134 H 123 H PFSH Medical History Poor short term memory ICD (implantable cardioverter-defibrillator) in place (05/08/24) History of nephrolithiasis Chronic renal failure, stage 3a Overactive bladder Urinary incontinence Post laminectomy syndrome Mitral valve insufficiency Cardiomyopathy Chronic HFrEF (heart failure with reduced ejection fraction) Nonsustained paroxysmal ventricular tachycardia Mild claudication Recurrent falls Spinal stenosis Tinnitus Diabetes HLD (hyperlipidemia) Depression Incomplete bladder emptying Hayfever (1999) Shoulder pain (2011) Fracture (1951) Chronic back pain (1989) Hepatitis A (1963) Melanoma (1987) Gilbert's syndrome Femur fracture (1965) Primary osteoarthritis of both hips (08/30/15) Polymyalgia rheumatica (08/30/15) Type 2 diabetes mellitus without complication (06/05/15) Benign prostatic hyperplasia with urinary obstruction (03/25/15) Peripheral vascular disease (2009) Coronary artery disease involving [place] coronary artery of [place] heart without angina pectoris (1995) Essential hypertension Mixed hyperlipidemia Surgical History S/P total hip arthroplasty (09/22/24) History of lumbar spinal fusion (~02/2024) Hx of laminectomy (~12/2023) History of bilateral cataract extraction History of coronary artery stent placement (07/29/18) History of orthopedic surgery (1965) Status post appendectomy (1956) Status post coronary artery bypass graft (1995) Family History Father Colon cancer Prostate enlargement Bladder cancer History of hip surgery Pneumonia History of prostate surgery Mother Diabetes mellitus Heart disease Hypertension High cholesterol Osteoporosis History of cataract surgery H/O heart bypass surgery Arthritis Grandfather Arthritis Prostate cancer Colon cancer Deaf Legally blind Grandmother Diabetes mellitus Hypertension Angina pectoris Heart disease Osteoporosis Social History marital status: number of children: 0 household members: spouse lives independently: Yes caregiver/support person: No housing: house pets and animals: Yes education level: other occupational status: other 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 Osei on September 22, 2024. S: Reports that his right hip pain is the same as yesterday. He still has significant pain with weight-bearing and hip range of motion. He was able to stand and pivot with PT yesterday. Tolerating p.o. Denies any fevers, chills or night sweats. 01/04/25: Reports minimal pain at rest. He has not gotten out of bed yet today. O: Well-healed surgical incision. No erythema or drainage. Fires quads, HS, TA, EHL SILT in S/S/DP/SP/T A: 84yo M with history, physical exam and imaging findings consistent with a right hip periprosthetic fracture. The right hip arthroplasty appears to be still well seated and no signs of loosening. We recommend continued nonoperative treatments with weight-bearing as tolerated and range motion as tolerated. -admission to medicine (appreciate their assistance with this patient -physical therapy -weightbearing as tolerated and range motion as tolerated -patient will likely require SNF placement -follow up with Orthopedics in 2 weeks (he will follow up with Dr. Verma) The patient had the treatment plan explained, questions answered and seemed satisfied with the plan. There were no apparent barriers to communication. The documentation in this note may have been entered with the assistance of computer voice recognition and dictation software. Therefore, it may contain unintended errors in text, spelling, punctuation, or grammar. Jackson Lozoya MD Orthopedic Surgeon Time Spent With Patient Time with patient: 15-24 minutes
[2025-01-03] MEDS: GABAPENTIN 300 MG CAPSULE PO ×2 (08:44→19:59)
[2025-01-03] MEDS: MAGNESIUM OXIDE 400 MG TABLET PO ×2 (08:44→19:59)
[2025-01-03] MEDS: DOCUSATE 100 MG CAPSULE PO ×2 (08:45→19:59)
[2025-01-03] MEDS: ISOSORBIDE MONONITRATE ER 30 MG TABLET PO (08:46)
[2025-01-03] MEDS: SPIRONOLACTONE 25 MG TABLET PO (08:46)
[2025-01-03] MEDS: TAMSULOSIN 0.4 MG CAPSULE PO ×2 (08:46→19:59)
[2025-01-03] MEDS: FOLIC ACID 1 MG TABLET PO (08:46)
[2025-01-03] MEDS: SERTRALINE 50 MG TABLET 150 MG PO (08:46)
[2025-01-03] MEDS: oxyBUTYnin ER 5 MG TABLET 10 MG PO (08:47)
[2025-01-03] MEDS: PANTOPRAZOLE DR 40 MG TABLET PO ×2 (08:47→19:59)
--- NOTE | 2025-01-03 13:27 | CM.DPC ---
DCP Cont: Per MD, pt making progress and likely can d/c to SNF tomorrow 01/04 if he remains stable overnight. SW updated him on the need to hold tirzepitide while at SNF due to the high cost. SW updated [facility] and they confirm they can accept pt tomorrow Saturday. PASRR previously done. NASIM Gutierrez
--- NOTE | 2025-01-03 16:33 | PT.IPTN ---
Current Diagnoses Type 2 diabetes mellitus without complications (12/31/24) Mixed hyperlipidemia (12/31/24) Essential (primary) hypertension (12/31/24) Atherosclerotic heart disease of [place] coronary artery without angina pectoris (12/31/24) Cardiomyopathy, unspecified (12/31/24) Chronic systolic (congestive) heart failure (12/31/24) Periprosthetic fracture around internal prosthetic right hip joint, initial encounter (12/31/24) Other obstructive and reflux uropathy (12/31/24) Chronic kidney disease, stage 3a (12/31/24) Overactive bladder (12/31/24) Benign prostatic hyperplasia with lower urinary tract symptoms (12/31/24) Unspecified trochanteric fracture of right femur, initial encounter for closed fracture (12/31/24) Physical Therapy Treatment Note M2 PT-IP Current Condition Start: 01/01/25 12:55 Freq: NEEDED Status: Active Protocol: Document 01/01/25 11:10 AB (Rec: 01/01/25 13:16 AB [id number]) Physical Therapy Current Condition Current Condition Evaluation Date 01/01/25 Treatment Diagnosis R hip periprosthetic fx; difficulty in walking Onset Date 12/31/24 M3 PT-IP Subjective Start: 01/01/25 12:55 Freq: NEEDED Status: Active Protocol: Document 01/03/25 15:49 [facility] (Rec: 01/03/25 16:33 [facility] [id number]) Subjective Physical Therapy Visit Type Type Treatment Note Visit Start Time 15:49 Visit Stop Time 14:20 Number of HUMAN RESOURCES COORDINATOR Visits 0 Physical Therapy Visit Comments Patient Comments agreeable to do PT Therapy Pain Assessment Pain When Pain Assessed During Mobility Pain Present Pain Present Pain Reported M4 PT-IP Mobility and Gait Start: 01/01/25 12:55 Freq: NEEDED Status: Active Protocol: Document 01/03/25 15:49 [facility] (Rec: 01/03/25 16:33 [facility] [id number]) PT-Bed Mobility Assessment Supine to Sit Supine to Sit Minimal Assistance,Head of Bed Elevated,Bedrails Scooting Scooting to Edge of Moderate Assistance Bed PT-Transfer Assessment Sit to and From Stand Sit to and from Moderate Assistance,Use of Upper Extremities Stand Equipment Transfer Assistive Gait Belt,Front Wheeled Walker Device Orthotic/Prosthetic No Devices or Brace: Comments Mobility Comments supine to sit w/HOB elevated and use of rail min A w/ cues for sequencing LEs fwd, scoot EOB w/cues for lean side to side and wt shift nd mod A w/draw sheet. sit to stand mod A to FWW w/cues for RLE position. Pt then amb w/FWW 25 ft w/min A w/cues for step to gait and not stepping past walker. Sat in chair min A to lower to do exercises and left with call light in reach. Gait Assessment Gait Gait Assistance Minimum Assistance Required: Distance (Feet) 25 Able to Maintain Yes Weight Bearing Status During Gait Assistive Devices Assistive Device Gait Belt,Front Wheeled Walker Orthotic/Prosthetic No Devices or Brace: Gait Deviations General Gait Pattern Antalgic,Decreased Stride Length,Decreased Feet Clearance,Step-to Gait Factors Limiting Gait Function Factors Limiting Decreased Activity Tolerance,Decreased Strength,Limited Gait Function Range of Motion,Pain,Poor Balance M5 PT-IP Objective Assessments Start: 01/01/25 12:55 Freq: NEEDED Status: Active Protocol: Document 01/01/25 11:10 AB (Rec: 01/01/25 13:16 [id number]) Orientation Orientation/Cognition Level of Alertness Alert Orientation Name,Place,Situation Language Function No Deficits Noted Ability Safety Awareness Decreased Safety Awareness Memory Description Short Term Impaired Gross Range of Motion Lower Extremity ROM Assessment Within Functional Limits Strength Lower Extremity Strength Assessment Right Impaired Hip 3-/5 Knee 4-/5 Muscle Tone Muscle Tone WNL Yes M6 PT-IP Treatment Start: 01/01/25 12:55 Freq: NEEDED Status: Active Protocol: Document 01/03/25 15:49 [facility] (Rec: 01/03/25 16:33 [facility] [id number]) Physical Therapy Treatment Exercises Exercises Ankle Pumps,Gluteal Sets,Seated Knee Flexion/Extension Education Education Provided Precautions,Weight Bearing Status,Safety Other Treatments Other Treatment 30x ea Performed M7 PT-IP Assessment and Plan Start: 01/01/25 12:55 Freq: NEEDED Status: Active Protocol: Document 01/03/25 15:49 [facility] (Rec: 01/03/25 16:33 [facility] [id number]) PT Summary Assessment and Plan Potential Rehabilitation Good Potential Summary Impairments Pain,ROM,Strength,Balance,Coordination,Cognition,Bed Mobility,Transfers,Gait,Activity Tolerance Progress Towards Progressing Toward Goals Goals Assessment Summary pt progressing with mobilities and able to ambulate today using FWW with min A and mod A for sit to stand. DId well reciting precautions and following cues for precautions. D/t still needing assist with mobility, would benefit from SNF rehab prior to return home. Goals Bed Mobility Goal Minimal Assistance Transfer Goal Minimal Assistance,Front Wheeled Walker Gait Goal Minimal Assistance,Front Wheel Walker Gait Distance 50 Other Goals improve bed mobility, transfers, ambulation using fWW ~ 100 ft SBA up/down 2 steps L rail ascending SBA Days to Meet Goals 10 Frequency of Treatment Frequency Of Once a Day Treatment Treatment Plan Physical Therapy Bed Mobility Training,Transfer Training,Gait Training, Treatment Plan Therapeutic Exercise,Balance Retraining,Discharge Planning,Hot or Cold Pack,Neuromuscular Re-ed, Coordination Retraining,Manual Therapy Other ambulation; bed mobility, sit to stands Recommendations and Next Treatment Focus Precautions Posterior Hip No Hip Flexion > 90 degrees,No Hip Internal Rotation,No Precautions Hip Adduction Weight Bearing Status Weight Bearing Weight Bear as Tolerated Status Allowed Weight RLE WBAT Bearing Amount ( enter % or #) (%) Recommendations To Nursing Amount of Assist 1 Person Assist Needed Discharge Recommendations PT Discharge SNF Rehab Recommendations Transportation Needs Wheelchair/Cabulance at Discharge - PT assist 1
[2025-01-03] MEDS: ATORVASTATIN 20 MG TABLET 40 MG PO (19:58)
[2025-01-03] MEDS: ONDANSETRON 4 MG ODT PO (20:06)
[2025-01-03] MEDS: MELATONIN 3 MG TABLET 9 MG PO (20:07)
[2025-01-04] MEDS: ACETAMINOPHEN 325 MG TABLET 650 MG PO (01:57)
[2025-01-04 03:00] VITALS: BP 115/60; PULSE 65; RESP 18; TEMP 35.9; O2SAT 95
[2025-01-04 07:00] VITALS: BP 129/61; PULSE 63; RESP 17; TEMP 36.2; O2SAT 95
--- NOTE | 2025-01-04 07:09 | PM.PNPO.1 ---
Exam Vital Signs (past 8 hours): - 01/04/25 03:00 Temperature 96.6 F L Pulse Rate 65 Respiratory Rate 18 Blood Pressure 115/60 Pulse Oximetry 95 Oxygen Flow Rate 0 Oxygen Delivery Method Room Air Oxygen Flow Rate 0 Objective Labs 12/31/24 01:06 12/31/24 01:06 Labs: Laboratory Results - last 24 hr 01/03/25 01/03/25 01/03/25 08:03 11:51 17:09 POC Whole Bld Glucose 123 H 126 H 126 H 01/03/25 20:35 POC Whole Bld Glucose 128 H [facility] Medical History Poor short term memory ICD (implantable cardioverter-defibrillator) in place (05/08/24) History of nephrolithiasis Chronic renal failure, stage 3a Overactive bladder Urinary incontinence Post laminectomy syndrome Mitral valve insufficiency Cardiomyopathy Chronic HFrEF (heart failure with reduced ejection fraction) Nonsustained paroxysmal ventricular tachycardia Mild claudication Recurrent falls Spinal stenosis Tinnitus Diabetes HLD (hyperlipidemia) Depression Incomplete bladder emptying Hayfever (1999) Shoulder pain (2011) Fracture (1951) Chronic back pain (1989) Hepatitis A (1963) Melanoma (1987) Gilbert's syndrome Femur fracture (1965) Primary osteoarthritis of both hips (08/30/15) Polymyalgia rheumatica (08/30/15) Type 2 diabetes mellitus without complication (06/05/15) Benign prostatic hyperplasia with urinary obstruction (03/25/15) Peripheral vascular disease (2009) Coronary artery disease involving [place] coronary artery of [place] heart without angina pectoris (1995) Essential hypertension Mixed hyperlipidemia Surgical History S/P total hip arthroplasty (09/22/24) History of lumbar spinal fusion (~02/2024) Hx of laminectomy (~12/2023) History of bilateral cataract extraction History of coronary artery stent placement (07/29/18) History of orthopedic surgery (1965) Status post appendectomy (1956) Status post coronary artery bypass graft (1995) Family History Father Colon cancer Prostate enlargement Bladder cancer History of hip surgery Pneumonia History of prostate surgery Mother Diabetes mellitus Heart disease Hypertension High cholesterol Osteoporosis History of cataract surgery H/O heart bypass surgery Arthritis Grandfather Arthritis Prostate cancer Colon cancer Deaf Legally blind Grandmother Diabetes mellitus Hypertension Angina pectoris Heart disease Osteoporosis Social History marital status: number of children: 0 household members: spouse lives independently: Yes caregiver/support person: No housing: house pets and animals: Yes education level: other occupational status: other 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 Osei on September 22, 2024. S: Reports that his right hip pain continues to improve. He still has pain with weight-bearing and hip range of motion. He was able to ambulate about the room with a walker yesterday. Tolerating p.o. Denies any fevers, chills or night sweats. O: Well-healed surgical incision. No erythema or drainage. Fires quads, HS, TA, EHL SILT in S/S/DP/SP/T A: 84yo M with history, physical exam and imaging findings consistent with a right hip periprosthetic fracture. The right hip arthroplasty appears to be still well seated and no signs of loosening. We recommend continued nonoperative treatments with weight-bearing as tolerated and range motion as tolerated. -admission to medicine (appreciate their assistance with this patient) -physical therapy -weightbearing as tolerated and range motion as tolerated -patient will likely require SNF placement -follow up with Orthopedics in 2 weeks (he will follow up with Dr. Verma) The patient had the treatment plan explained, questions answered and seemed satisfied with the plan. There were no apparent barriers to communication. The documentation in this note may have been entered with the assistance of computer voice recognition and dictation software. Therefore, it may contain unintended errors in text, spelling, punctuation, or grammar. Jackson Lozoya MD Orthopedic Surgeon Time Spent With Patient Time with patient: 15-24 minutes
--- NOTE | 2025-01-04 07:35 | PM.DS.IH.1 ---
History of Present Illness History of Present Illness Date Patient Seen: 01/04/25 Time Patient Seen: 07:35 Chief complaint: RIGHT Hip Pain Narrative: 84-year-old male with CHF, ICD, CAD s/p PCI, diabetes, CKD, hypertension admitted on behalf of Dr. Medina. Patient underwent right total hip replacement with Dr. Osei on 09/22/2024. Yesterday he had a ground level fall in his kitchen when he lost his footing and twisted around, landed on right hip. Presented to ER for evaluation due to pain and inability to move leg. XR and CT hip demonstrated acute periprosthetic right femoral fracture. Evaluation otherwise notable for hemoglobin 11.6, MCV 77.8, creatinine 1.45, GFR 48, glucose 197, BNP 3400; remainder of CBC, CMP without significant derangements. Orthopedics consulted and will advise on plan once images reviewed. {from Dr. Barros's H&P 12/31/2024} Discharge Providers Provider Date of admission: 12/31/24 02:21 Discharge Date: 01/04/25 Primary care physician: Matt Medina MD Consults: 12/31/24 11:38 Consult to Discharge Planning Routine Comment: Planning for SNF discharge 12/31/24 16:42 Consult to Physical Therapy Evaluate & Treat Comment: Physician Instructions: Evaluate and Treat 01/01/25 13:07 Consult to Occupational Therapy Evaluate & Treat Comment: Physician Instructions: Evaluate and treat Discharge provider: Matt Medina MD Summary Hospital Course Discharge Diagnosis: 1. Periprosthetic fracture around internal prosthetic right hip joint 2. 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 Type 2 diabetes 4. Coronary artery disease 5. Essential hypertension 6. Mixed hyperlipidemia 7. BPH with lower urinary tract symptoms 8. Cardiomyopathy 9. Chronic renal failure stage 3 a Hospital Course: As above patient was admitted after falling at home and sustaining a fracture around his fairly recently replaced right hip. [place] to be stable and not require additional surgical intervention by Orthopedic surgery and therefore was treated with skilled therapies Patient had improvement in pain but was still quite disabled by pain and inability to move requiring maximum assist for basic activities. Therefore it was felt best to discharge him to custodial to continue with skilled therapies and when improved enough that he can be independent can be discharged home Pain was adequately controlled with oral pain medications Diabetes well controlled during this hospitalization No evidence of an acute flare of his chronic congestive heart failure. His cardiac medications were not changed during this hospitalization Status at Discharge Cognitive/behavioral status at discharge: oriented and at baseline, oriented Functional status at discharge: uses cane/walker Overall status at discharge: patient is progressing back to baseline Time Spent with Patient Time spent: Greater than 30 minutes Exam Vital Signs (past 8 hours): - 01/04/25 03:00 Temperature 96.6 F L Pulse Rate 65 Respiratory Rate 18 Blood Pressure 115/60 Pulse Oximetry 95 Oxygen Flow Rate 0 Oxygen Delivery Method Room Air Oxygen Flow Rate 0 Objective Labs 12/31/24 01:06 12/31/24 01:06 Labs: Laboratory Results - last 24 hr 01/03/25 01/03/25 01/03/25 08:03 11:51 17:09 POC Whole Bld Glucose 123 H 126 H 126 H 01/03/25 01/04/25 20:35 07:29 POC Whole Bld Glucose 128 H 124 H [facility] Medical History Poor short term memory ICD (implantable cardioverter-defibrillator) in place (05/08/24) History of nephrolithiasis Chronic renal failure, stage 3a Overactive bladder Urinary incontinence Post laminectomy syndrome Mitral valve insufficiency Cardiomyopathy Chronic HFrEF (heart failure with reduced ejection fraction) Nonsustained paroxysmal ventricular tachycardia Mild claudication Recurrent falls Spinal stenosis Tinnitus Diabetes HLD (hyperlipidemia) Depression Incomplete bladder emptying Hayfever (1999) Shoulder pain (2011) Fracture (1951) Chronic back pain (1989) Hepatitis A (1963) Melanoma (1987) Gilbert's syndrome Femur fracture (1965) Primary osteoarthritis of both hips (08/30/15) Polymyalgia rheumatica (08/30/15) Type 2 diabetes mellitus without complication (06/05/15) Benign prostatic hyperplasia with urinary obstruction (03/25/15) Peripheral vascular disease (2009) Coronary artery disease involving [place] coronary artery of [place] heart without angina pectoris (1995) Essential hypertension Mixed hyperlipidemia Surgical History S/P total hip arthroplasty (09/22/24) History of lumbar spinal fusion (~02/2024) Hx of laminectomy (~12/2023) History of bilateral cataract extraction History of coronary artery stent placement (05/28/19) History of orthopedic surgery (1965) Status post appendectomy (1956) Status post coronary artery bypass graft (1995) Family History Father Colon cancer Prostate enlargement Bladder cancer History of hip surgery Pneumonia History of prostate surgery Mother Diabetes mellitus Heart disease Hypertension High cholesterol Osteoporosis History of cataract surgery H/O heart bypass surgery Arthritis Grandfather Arthritis Prostate cancer Colon cancer Deaf Legally blind Grandmother Diabetes mellitus Hypertension Angina pectoris Heart disease Osteoporosis Social History marital status: number of children: 0 household members: spouse lives independently: Yes caregiver/support person: No housing: house pets and animals: Yes education level: other occupational status: other 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/yazidi: None travel history: other leisure activities: other Smoking Status: Former smoker Tobacco: How many years used: 20 Smokeless tobacco user: other quit status: quit date established second hand exposure: No alcohol intake: former substance use type: does not use and marijuana Discharge Assessment & Plan Assessment and Plan Plan of Treatment: Discharge to custodial facility Follow up with Orthopedic surgery in 2 weeks Follow-up with PCP within a week of discharge from custodial Discharge Plan Discharge Plan Patient Disposition: SNF Transfer to: [facility] Consult as needed: Dental, Hearing, Mental health, Podiatry and Vision Discharge orders & Medications Prescriptions: New hydrocodone-acetaminophen 5-325 mg Tablet 2 tab PO Q4H MDD 6 tabs PRN (Reason: Pain, Severe (7-10)) Qty: 30 0RF Continued carvedilol 12.5 mg tablet 12.5 mg PO BID torsemide 10 mg tablet 10 mg PO DAILY (DME) blood-glucose meter Misc See Rx Instructions .ROUTE .MEDSUPPLY Qty: 1 0RF Rx Instructions: Use to test blood glucose DAILY (DME) Blood Glucose Test Strip See Rx Instructions .ROUTE .MEDSUPPLY Qty: 100 1RF Rx Instructions: Use to test blood glucose ONCE daily. (DME) lancets [BD Ultra Fine Lancets] 33 gauge misc See Rx Instructions .ROUTE .MEDSUPPLY Qty: 100 1RF Rx Instructions: Use to test blood glucose ONCE daily albuterol sulfate 90 mcg/actuation HFA aerosol inhaler 2 puff inhalation Q4-6H PRN (Reason: shortness of breath or wheezing) Qty: 8.5 0RF famotidine 20 mg tablet 20 mg PO BID Qty: 180 3RF tamsulosin [Flomax] 0.4 mg capsule 0.4 mg PO BID Qty: 180 3RF pantoprazole 40 mg tablet,delayed release (DR/EC) 40 mg PO BID Qty: 180 3RF magnesium oxide 400 mg magnesium tablet 400 mg PO BID Qty: 60 4RF tolterodine 4 mg capsule,extended release 24hr 4 mg PO DAILY Qty: 90 3RF sertraline 100 mg tablet 150 mg PO DAILY Qty: 135 3RF folic acid 1 mg tablet 1 mg PO DAILY Qty: 90 3RF glipizide 10 mg tablet extended release 24hr 10 mg PO BID Qty: 180 3RF (DME) Disabled Parking See Rx Instructions .ROUTE .MEDSUPPLY Qty: 1 0RF Rx Instructions: Patient qualifies for disabled parking as per the attached form. isosorbide dinitrate 20 mg tablet 20 mg PO BID Qty: 1 0RF leflunomide 20 mg tablet 20 mg PO DAILY sacubitril-valsartan [Entresto] 49-51 mg tablet 0.5 tab PO BID Patient Comments: [NO ORIGINAL SIG] rosuvastatin 20 mg Tablet 20 mg PO QPM gabapentin 100 mg capsule 200 mg PO ONCE PM aspirin [Adult Low Dose Aspirin] 81 mg tablet,delayed release (DR/EC) 81 mg PO BID Qty: 90 0RF vitamin B complex Tablet 1 tab PO DAILY spironolactone 25 mg tablet 25 mg PO DAILY Jardiance 10 mg tablet 10 mg PO DAILY Discontinued Mounjaro 2.5 mg/0.5 mL pen injector 2.5 mg SUBCUT QWEEK Qty: 2 0RF Rx Instructions: for weeks 1-4 Mounjaro 5 mg/0.5 mL pen injector 5 mg SUBCUT QWEEK Qty: 2 0RF Rx Instructions: weeks 5-8 Follow up/Referrals: Matt Medina MD [Primary Care Provider, Internal Medicine] Nestor Verma MD [Physician, Orthopedic Surgery] - 2 Weeks Discharge Health Status Multidrug resistant organism: No MDRO Precautions: [place] Diet/Activity/Treatments Diet: Diet as Tolerated and Carb-consistent/Diabetic Liquid consistency: Normal/Thin Food texture: Regular [facility] Reason for rehabilitation: Other Rehab type: Physical therapy and Occupational therapy Visit Report/Discharge Packet Stand Alone Forms: Patient Portal/API Discharge Data Primary Care Provider: Matt Medina Charge Codes Discharge inpatient/observation: [id number]
[2025-01-04 08:42] VITALS: BP 129/64; PULSE 61
[2025-01-04] MEDS: GABAPENTIN 300 MG CAPSULE PO (08:42)
[2025-01-04] MEDS: TAMSULOSIN 0.4 MG CAPSULE PO (08:42)
[2025-01-04] MEDS: FOLIC ACID 1 MG TABLET PO (08:42)
[2025-01-04] MEDS: MAGNESIUM OXIDE 400 MG TABLET PO (08:43)
[2025-01-04] MEDS: ISOSORBIDE MONONITRATE ER 30 MG TABLET PO (08:43)
[2025-01-04] MEDS: SERTRALINE 50 MG TABLET 150 MG PO (08:43)
[2025-01-04] MEDS: PANTOPRAZOLE DR 40 MG TABLET PO (08:43)
[2025-01-04] MEDS: oxyBUTYnin ER 5 MG TABLET 10 MG PO (08:43)
[2025-01-04] MEDS: DOCUSATE 100 MG CAPSULE PO (08:43)
[2025-01-04] MEDS: SPIRONOLACTONE 25 MG TABLET PO (08:44)
[2025-01-04] MEDS: ENOXAPARIN 40 MG/0.4 ML SYRINGE SUBCUT (08:50)
--- NOTE | 2025-01-04 12:13 | PC.NURSE ---
Patient is A&OX4, VSS, afebrile on RA. MD Medina at bedside evaluating the patient this a.m. and medically clears patient for discharge to SNF today. Patient acknowledges and is in agreement with plan to transport to SNF [facility] today. CM arranged transport at 1130 a.m. at bedside at time of transport gathering all of his belongings. He is assisted to dress and get in to W/ch x1 assist using FWW. He denies need for prn pain medication this a.m. Report called to Masood MORENO at [facility] and patient is transported via w/ch with facility designee in facility vehicle at 1145a.m.
--- NOTE | 2025-01-04 12:29 | CM.DPNOTE ---
DCP note [employer] reviewed EMR per provider cleared to dc to SNF today Per cristin Vazquez pickling grader 1130am. [employer] emailed PASRR/meds/scripts/dc summary to [facility]. placed meds/script/PASRR in red folder. [employer] updated TIE MILL OPERATOR/RN. gave RN report number. [employer] updated pt and spouse in room. agreeable to plan. [employer] answered questions to best of ability P: dc today to [facility] at 1130. no further CM needs at this time. will continue to follow as needed NASIM Khan
== END 2025-01-04 11:45 | DRG 536 ==
LOC: ED 23:58 → AC 12-31 02:21
PROVIDERS: Admitting Provider Family Medicine; Emergency Provider Family Medicine; PCP Internal Medicine; Referring Provider Family Medicine; Visit Provider Internal Medicine
DX: S72.101A Unspecified trochanteric fracture of right femur, initial encounter for closed fracture (principal); I50.22 Chronic systolic (congestive) heart failure; M97.01XA Periprosthetic fracture around internal prosthetic right hip joint, initial encounter; I42.9 Cardiomyopathy, unspecified; I13.0 Hypertensive heart and chronic kidney disease with heart failure and stage 1 through stage 4 chronic kidney disease, or unspecified chronic kidney disease; N13.8 Other obstructive and reflux uropathy; I25.10 Atherosclerotic heart disease of native coronary artery without angina pectoris; E78.2 Mixed hyperlipidemia; N18.31 Chronic kidney disease, stage 3a; E11.22 Type 2 diabetes mellitus with diabetic chronic kidney disease; N32.81 Overactive bladder; N40.1 Benign prostatic hyperplasia with lower urinary tract symptoms; W18.30XA Fall on same level, unspecified, initial encounter; Z79.84 Long term (current) use of oral hypoglycemic drugs; Z95.5 Presence of coronary angioplasty implant and graft; Z87.891 Personal history of nicotine dependence; Z95.810 Presence of automatic (implantable) cardiac defibrillator
CPT/HCPCS: 72192; 73502; 80053; 82962; 83880; 85025; 97116; 97162; 97165; 97530; 99231; 99233; 99239; 99283; 99284; A9270; J1650; J7030

== ENCOUNTER → 2025-02-01 10:59 | Outpatient (CLI) | payer MEDICARE, OTHER, SELFPAY ==
[2025-01-26 11:07] VITALS: BMI 31.4
== END ==
LOC: WC 11:11
PROVIDERS: PCP Internal Medicine; Referring Provider Internal Medicine; Visit Provider Surgery
DX: L89.623 Pressure ulcer of left heel, stage 3 (principal); E11.628 Type 2 diabetes mellitus with other skin complications; E11.42 Type 2 diabetes mellitus with diabetic polyneuropathy; I73.9 Peripheral vascular disease, unspecified
CPT/HCPCS: 11042; 87070; 87075; 87077; 87147; 87186; 87205; 99203; 99214

== ENCOUNTER → 2025-02-03 11:48 | Outpatient (CLI) | payer MEDICARE, OTHER, SELFPAY ==
[2025-01-26 11:07] VITALS: BMI 31.4
--- NOTE | 2025-02-03 11:49 | DI.RAD.S_ITS ---
PROCEDURE: XR FOOT LT 2V INDICATIONS: pressure ulcer on posterior heel evaluate for osteo TECHNIQUE: 2 views of the foot were acquired. COMPARISON: [facility], CR, XR FOOT RT MIN 3V, 04/14/2021, 12:02. FINDINGS: Bones: No fractures or dislocations. No suspicious bony lesions. Interphalangeal joint space narrowing with osteophytosis. Plantar calcaneal enthesophyte. Vascular calcifications. Soft tissues: No tibiotalar joint effusion. Achilles tendon appears normal. No bony erosion. IMPRESSION: No periosteal reaction or osteolysis to suspect osteomyelitis. If there remains a high clinical suspicion for osteomyelitis, consider MRI imaging with and without contrast. Dictated by: Carlos Espinoza M.D. on 02/04/2025 at 8:46 Approved by: Carlos Espinoza M.D. on 02/04/2025 at 8:47
== END ==
PROVIDERS: PCP Internal Medicine; Referring Provider Surgery; Visit Provider Surgery
DX: L97.429 Non-pressure chronic ulcer of left heel and midfoot with unspecified severity (principal)
CPT/HCPCS: 73620

== ENCOUNTER → 2025-02-03 11:52 | Outpatient (CLI) | payer MEDICARE, OTHER, SELFPAY ==
[2025-01-26 11:07] VITALS: BMI 31.4
== END ==
PROVIDERS: PCP Internal Medicine; Referring Provider Internal Medicine; Visit Provider Surgery
DX: L89.623 Pressure ulcer of left heel, stage 3 (principal)
CPT/HCPCS: 99213

== ENCOUNTER → 2025-02-05 10:48 | Outpatient (CLI) | payer MEDICARE, OTHER, SELFPAY ==
[2025-01-26 11:07] VITALS: BMI 31.4
== END ==
LOC: WC 10:50
PROVIDERS: PCP Internal Medicine; Referring Provider Internal Medicine; Visit Provider Physician Assistant
DX: L89.623 Pressure ulcer of left heel, stage 3 (principal)
CPT/HCPCS: 99212

== ENCOUNTER → 2025-02-08 14:40 | Outpatient (CLI) | payer MEDICARE, OTHER, SELFPAY ==
[2025-01-26 11:07] VITALS: BMI 31.4
== END ==
LOC: WC 14:55
PROVIDERS: PCP Internal Medicine; Referring Provider Internal Medicine; Visit Provider Surgery
DX: L89.623 Pressure ulcer of left heel, stage 3 (principal); E11.621 Type 2 diabetes mellitus with foot ulcer; L97.512 Non-pressure chronic ulcer of other part of right foot with fat layer exposed; L97.522 Non-pressure chronic ulcer of other part of left foot with fat layer exposed; L98.8 Other specified disorders of the skin and subcutaneous tissue; L84 Corns and callosities; E11.40 Type 2 diabetes mellitus with diabetic neuropathy, unspecified; E11.51 Type 2 diabetes mellitus with diabetic peripheral angiopathy without gangrene; Z87.891 Personal history of nicotine dependence; Z99.89 Dependence on other enabling machines and devices; Z88.0 Allergy status to penicillin; Z88.1 Allergy status to other antibiotic agents; Z88.8 Allergy status to other drugs, medicaments and biological substances
CPT/HCPCS: 11042

== ENCOUNTER → 2025-02-09 10:28 | Outpatient (CLI) | payer MEDICARE, OTHER, SELFPAY ==
[2025-01-26 11:07] VITALS: BMI 31.4
== END ==
LOC: WC 10:35
PROVIDERS: PCP Internal Medicine; Referring Provider Internal Medicine; Visit Provider Surgery
DX: L89.623 Pressure ulcer of left heel, stage 3 (principal); E11.621 Type 2 diabetes mellitus with foot ulcer; L97.512 Non-pressure chronic ulcer of other part of right foot with fat layer exposed; L97.522 Non-pressure chronic ulcer of other part of left foot with fat layer exposed; L84 Corns and callosities; R23.3 Spontaneous ecchymoses
CPT/HCPCS: 99213

== ENCOUNTER → 2025-02-10 13:46 | Outpatient (CLI) | payer MEDICARE, OTHER, SELFPAY ==
[2025-01-26 11:07] VITALS: BMI 31.4
== END ==
PROVIDERS: PCP Internal Medicine; Referring Provider Internal Medicine; Visit Provider Surgery
DX: L89.623 Pressure ulcer of left heel, stage 3 (principal); E11.621 Type 2 diabetes mellitus with foot ulcer; L97.512 Non-pressure chronic ulcer of other part of right foot with fat layer exposed; L97.522 Non-pressure chronic ulcer of other part of left foot with fat layer exposed; L84 Corns and callosities; R23.3 Spontaneous ecchymoses
CPT/HCPCS: 99213

== ENCOUNTER → 2025-02-10 14:24 | Outpatient (CLI) | payer MEDICARE, OTHER, SELFPAY ==
[2025-01-26 11:07] VITALS: BMI 31.4
--- NOTE | 2025-02-10 14:26 | DI.US.S_ITS ---
PROCEDURE: US ARTERIAL DUPLEX LE BI INDICATIONS: Non-healing ulcers of L heel and R 2nd toe TECHNIQUE: Color and pulse Doppler interrogation was performed of both lower extremity arterial systems, with image documentation. COMPARISON: None. FINDINGS: Right lower extremity: Common femoral artery: 90 cm/sec, with triphasic flow. Deep femoral artery: 79 cm/sec, with triphasic flow. Proximal superficial femoral artery: 97 cm/sec, with triphasic flow. Mid superficial femoral artery: 113 cm/sec, with triphasic flow. Distal superficial femoral artery: 72 cm/sec, with triphasic flow. Popliteal artery: 55 cm/sec, with monophasic flow. Posterior tibial artery: 27 cm/sec, with monophasic flow. Anterior tibial artery/dorsalis pedis: 38 cm/sec, with monophasic flow. Whiet-scale imaging description: Calcified plaque particularly distally Left lower extremity: Common femoral artery: 97 cm/sec, with biphasic flow. Deep femoral artery: 65 cm/sec, with biphasic flow. Proximal superficial femoral artery: 118 cm/sec, with triphasic flow. Mid superficial femoral artery: 69 cm/sec, with triphasic flow. Distal superficial femoral artery: 115 cm/sec, with triphasic flow. Popliteal artery: 49 cm/sec, with monophasic flow. Posterior tibial artery: 35 cm/sec, with monophasic flow. Anterior tibial artery/dorsalis pedis: No visualized flow White-scale imaging description: Calcifications particularly distal. IMPRESSION: Monophasic with diminutive flow within the runoff facet [place] bilaterally with no identified flow in the anterior tibial artery. Overall appearance is suggestive of chronic peripheral vascular disease. Dictated by: Debbie Aldana M.D. on 02/11/2025 at 16:45 Approved by: Debbie Aldana M.D. on 02/11/2025 at 16:46
== END ==
PROVIDERS: PCP Internal Medicine; Referring Provider Internal Medicine; Visit Provider Surgery
DX: E11.621 Type 2 diabetes mellitus with foot ulcer (principal); L89.623 Pressure ulcer of left heel, stage 3; L97.512 Non-pressure chronic ulcer of other part of right foot with fat layer exposed; L97.522 Non-pressure chronic ulcer of other part of left foot with fat layer exposed; L84 Corns and callosities; R23.3 Spontaneous ecchymoses
CPT/HCPCS: 93925; 99213

== ENCOUNTER → 2025-02-12 13:42 | Outpatient (CLI) | payer MEDICARE, OTHER, SELFPAY ==
[2025-01-26 11:07] VITALS: BMI 31.4
== END ==
LOC: WC 13:43
PROVIDERS: PCP Internal Medicine; Referring Provider Internal Medicine; Visit Provider Physician Assistant
DX: L89.623 Pressure ulcer of left heel, stage 3 (principal); E11.621 Type 2 diabetes mellitus with foot ulcer; L97.512 Non-pressure chronic ulcer of other part of right foot with fat layer exposed; L97.522 Non-pressure chronic ulcer of other part of left foot with fat layer exposed; L84 Corns and callosities; R23.3 Spontaneous ecchymoses
CPT/HCPCS: 99213

== ENCOUNTER → 2025-02-15 14:38 | Outpatient (CLI) | payer MEDICARE, OTHER, SELFPAY ==
[2025-01-26 11:07] VITALS: BMI 31.4
== END ==
LOC: WC 14:40
PROVIDERS: PCP Internal Medicine; Referring Provider Internal Medicine; Visit Provider Surgery
DX: E11.621 Type 2 diabetes mellitus with foot ulcer (principal); E11.628 Type 2 diabetes mellitus with other skin complications; L97.512 Non-pressure chronic ulcer of other part of right foot with fat layer exposed; L97.522 Non-pressure chronic ulcer of other part of left foot with fat layer exposed; L89.623 Pressure ulcer of left heel, stage 3; E11.42 Type 2 diabetes mellitus with diabetic polyneuropathy; I73.9 Peripheral vascular disease, unspecified; L84 Corns and callosities; R23.4 Changes in skin texture
CPT/HCPCS: 11042

== ENCOUNTER → 2025-02-17 09:58 | Outpatient (CLI) | payer MEDICARE, OTHER, SELFPAY ==
[2025-01-26 11:07] VITALS: BMI 31.4
== END ==
LOC: WC 10:04
PROVIDERS: PCP Internal Medicine; Referring Provider Internal Medicine; Visit Provider Surgery
DX: L89.623 Pressure ulcer of left heel, stage 3 (principal); E11.621 Type 2 diabetes mellitus with foot ulcer; L97.512 Non-pressure chronic ulcer of other part of right foot with fat layer exposed; L84 Corns and callosities
CPT/HCPCS: 99212

== ENCOUNTER → 2025-02-19 11:35 | Outpatient (CLI) | payer MEDICARE, OTHER, SELFPAY ==
[2025-01-26 11:07] VITALS: BMI 31.4
== END ==
LOC: WC 11:36
PROVIDERS: PCP Internal Medicine; Referring Provider Internal Medicine; Visit Provider Physician Assistant
DX: L89.623 Pressure ulcer of left heel, stage 3 (principal); E11.622 Type 2 diabetes mellitus with other skin ulcer; E11.621 Type 2 diabetes mellitus with foot ulcer; L97.512 Non-pressure chronic ulcer of other part of right foot with fat layer exposed; L97.522 Non-pressure chronic ulcer of other part of left foot with fat layer exposed; L84 Corns and callosities; R23.4 Changes in skin texture
CPT/HCPCS: 99213

== ENCOUNTER → 2025-02-22 13:58 | Outpatient (CLI) | payer MEDICARE, OTHER, SELFPAY ==
[2025-01-26 11:07] VITALS: BMI 31.4
== END ==
LOC: WC 13:59
PROVIDERS: PCP Internal Medicine; Referring Provider Internal Medicine; Visit Provider Surgery
DX: L89.623 Pressure ulcer of left heel, stage 3 (principal); E11.621 Type 2 diabetes mellitus with foot ulcer; E11.622 Type 2 diabetes mellitus with other skin ulcer; L97.512 Non-pressure chronic ulcer of other part of right foot with fat layer exposed; L97.522 Non-pressure chronic ulcer of other part of left foot with fat layer exposed; E11.42 Type 2 diabetes mellitus with diabetic polyneuropathy; I73.9 Peripheral vascular disease, unspecified; L84 Corns and callosities; R23.4 Changes in skin texture
CPT/HCPCS: 11042

== ENCOUNTER → 2025-03-01 16:20 | Outpatient (CLI) | payer MEDICARE, OTHER, SELFPAY ==
[2025-01-26 11:07] VITALS: BMI 31.4
== END ==
LOC: WC 16:22
PROVIDERS: PCP Internal Medicine; Referring Provider Internal Medicine; Visit Provider Surgery
DX: E11.622 Type 2 diabetes mellitus with other skin ulcer (principal); E11.621 Type 2 diabetes mellitus with foot ulcer; L89.623 Pressure ulcer of left heel, stage 3; L97.512 Non-pressure chronic ulcer of other part of right foot with fat layer exposed; L97.522 Non-pressure chronic ulcer of other part of left foot with fat layer exposed; E11.42 Type 2 diabetes mellitus with diabetic polyneuropathy; I73.9 Peripheral vascular disease, unspecified
CPT/HCPCS: 11042; 99213

== ENCOUNTER → 2025-03-03 11:46 | Outpatient (CLI) | payer MEDICARE, OTHER, SELFPAY ==
[2025-01-26 11:07] VITALS: BMI 31.4
== END ==
LOC: WC 11:53
PROVIDERS: PCP Internal Medicine; Referring Provider Internal Medicine; Visit Provider Surgery
DX: L89.623 Pressure ulcer of left heel, stage 3 (principal); E11.621 Type 2 diabetes mellitus with foot ulcer; L97.512 Non-pressure chronic ulcer of other part of right foot with fat layer exposed; L97.522 Non-pressure chronic ulcer of other part of left foot with fat layer exposed; L84 Corns and callosities
CPT/HCPCS: 99213